=== PATIENT | female | born 1950 | race Caucasian/White ===

== ENCOUNTER 2023-02-14 13:46 | Outpatient (OUT) | payer MEDICARE, SELFPAY ==
[2023-02-14 14:23] LABS: Basophils Percent Auto 0.8 % (0.2-2.0); Eosinophils Absolute Auto 0.1 10^3/uL (0.0-0.7); Eosinophils Percent Auto 1.9 % (0.9-7.0); Hematocrit 39.6 % (36.0-48.0); Hemoglobin 12.8 g/dL (12.0-16.0); Immature Granulocytes Abs Auto 0.01 10^3/uL (0.00-0.03); Immature Granulocytes Pct Auto 0.2 % (0.0-0.5); Lymphocytes Percent Auto 38.4 % (20.5-60.0); Mean Corpuscular HGB Conc 32.3 g/dL (29.9-35.2); Mean Corpuscular Hemoglobin 30.5 pg (26.7-34.0); Mean Corpuscular Volume 94.5 fL (81.0-99.0); Mean Platelet Volume 9.5 fL (9.5-13.5); Monocytes Absolute Auto 0.4 10^3/uL (0.3-0.8); Monocytes Percent Auto 8.4 % (1.7-12.0); Neutrophils Absolute Auto 2.6 10^3/uL (1.4-6.5); Neutrophils Percent Auto 50.3 % (43.0-75.0); Nucleated Red Blood Cells 0; Platelet Count 261 10^3/uL (150-450); Red Blood Count 4.19 10^6/uL (4.20-5.40); Red Cell Distribution Width 13.9 % (11.0-15.0); White Blood Count 5.2 10^3/uL (4.0-11.0)
[2023-02-14 14:45] LABS: Alanine Aminotransferase 33 U/L (14-59); Albumin Globulin Ratio 1.1; Albumin Level 3.8 g/dL (3.4-5.0); Alkaline Phosphatase 83 U/L (46-116); Aspartate Amino Transferase 63 U/L (15-37); BUN Creatinine Ratio 15.7; Calcium 9.6 mg/dL (8.5-10.1); Chloride 105 mmol/L (98-107); Estimated GFR (African America >60 (>=60); Estimated GFR (Non-African Ame >60 (>=60); Globulin 3.6 g/dL; Glucose 91 mg/dL (74-106); Sodium 143 mmol/L (136-145); Thyroid Stimulating Hormone 1.513 uIU/mL (0.358-3.740); Total Protein 7.4 g/dL (6.4-8.2)
== END 2023-02-14 13:47 ==
LOC: LAB 13:51
PROVIDERS: PCP Internal Medicine; Visit Provider Internal Medicine
DX: R53.83 Other fatigue (principal); R26.89 Other abnormalities of gait and mobility; I10 Essential (primary) hypertension; F32.9 Major depressive disorder, single episode, unspecified
CPT/HCPCS: 36415; 80053; 82607; 84443; 85025

== ENCOUNTER 2023-06-19 12:37 | Outpatient (RCR) | payer MEDICARE, SELFPAY | END 2023-06-20 16:16 | disposition home or self-care (01) | LOC: PT 12:37 | PROVIDERS: PCP Internal Medicine; Visit Provider Internal Medicine | DX: H81.11 Benign paroxysmal vertigo, right ear (principal); M54.2 Cervicalgia | CPT/HCPCS: 97163 ==

== ENCOUNTER 2023-07-12 18:38 | Emergency (ER) | payer MEDICARE, SELFPAY ==
[2023-07-12 18:44] VITALS: BP 160/97; PULSE 82; RESP 20; TEMP 36.4; O2SAT 98; BMI 26.8
--- NOTE | 2023-07-12 18:52 | ED.HEATRA1 ---
Documented by User: LADI Townsend 07/12/23 18:56 HPI - Head Injury General Chief complaint: Head Injury Stated complaint: fell and hit head Time Seen by Provider: 07/12/23 18:40 Source: patient Mode of arrival: walk-in Limitations: no limitations History of Present Illness HPI Narrative: patient is a 73-year-old female who presents to the emergency department for the evaluation of a head injury that occurred prior to arrival. Patient states one hour ago her shoe got caught next to a door and she fell backward hitting her head. She denies loss of consciousness, visual changes, nausea, vomiting. She does not take blood thinners. She arrives to the emergency department with no complaints of neck pain or back pain. She denies any extremity injuries. She placed ice on a hematoma to the top of her head which she states is gone now. She has no other focal medical complaints, she denies dizziness, prolonged immobilization on the floor. She is awake, alert, answering questions and smiling at initial interview. Related Data Home Medications Medication Instructions Recorded Confirmed albuterol sulfate 90 mcg/actuation 2 puff inhalation Q6H PRN 07/12/23 07/12/23 aerosol inhaler shortness of breath or wheezing cyanocobalamin (vitamin B-12) 1,000 mcg PO DAILY 07/12/23 07/12/23 1,000 mcg tablet meclizine 25 mg chewable tablet 25 mg PO TID PRN dizziness 07/12/23 07/12/23 Allergies Allergy/AdvReac Type Severity Reaction Status Date / Time No Known Drug Allergies Allergy Verified 07/12/23 18:52 Review of Systems ROS Constitutional Denies: fever or chills Ears, nose, mouth, and throat Denies: throat pain or neck pain Respiratory Denies: shortness of breath Gastrointestinal Denies: nausea or vomiting Musculoskeletal Denies: back pain or neck pain Integumentary/Breast Denies: rash Neurological Denies: headache Hematologic/Lymphatic Denies: easy bruising Exam Narrative Exam Narrative: Gen.: Awake, alert, in no distress Head: Normocephalic, small hematoma noted to the occiput with no abrasion or laceration Neck: C-spine nontender with a full range of motion ENT: Moist mucous membranes; no dental injury, no hemotympanums Respiratory: No respiratory distress back: No bony tenderness of the T-spine or L-spine Extremities: Moves extremities equally, no injuries noted; ambulatory Psych: Normal mood and affect Neuro: No focal neuro deficit Skin: Warm, dry, intact Constitutional Vital Signs, click to edit/add: Last Vital Signs Temp 97.6 F 07/12/23 18:44 Pulse 82 07/12/23 18:44 Resp 20 07/12/23 18:44 BP 160/97 H 07/12/23 18:44 Pulse Ox 98 07/12/23 18:44 O2 Del Method Room Air 07/12/23 18:44 Course Vital Signs Vital signs: Vital Signs Temperature 97.6 F 07/12/23 18:44 Pulse Rate 82 07/12/23 18:44 Respiratory Rate 20 07/12/23 18:44 Blood Pressure 160/97 H 07/12/23 18:44 Pulse Oximetry 98 07/12/23 18:44 Oxygen Delivery Method Room Air 07/12/23 18:44 Temperature 97.6 F 07/12/23 18:44 Pulse Rate 82 07/12/23 18:44 Respiratory Rate 20 07/12/23 18:44 Blood Pressure 160/97 H 07/12/23 18:44 Pulse Oximetry 98 07/12/23 18:44 Oxygen Delivery Method Room Air 07/12/23 18:44 MDM - Head Injury MDM Narrative Medical decision making narrative: patient with no significant focal medical complaints in the Emergency Room. She has a benign exam with stable vital signs. She appears well-hydrated and nontoxic with no focal neuro deficits. Discussed CT scanning with the patient and she is in agreement with returning to the emergency department if she develops any worsening symptoms, though there is no indication for an emergent CT at this time. She was encouraged to watch for worsening headache, vomiting, visual changes or paresthesias. Follow-up with PCP, apply ice to the area of hematoma to the back of the skull. Tylenol as needed for pain. Patient is in agreement with treatment plan. Return to the Emergency Room if symptoms change or worsen. Medical Records Attestation: I reviewed the patient's medical records. Discharge Plan Discharge Chief Complaint: Head Injury Clinical Impression: Closed head injury Patient Disposition: Home, Self-Care Time of Disposition Decision: 18:52 Condition: Good Prescriptions / Home Meds: No Action albuterol sulfate 90 mcg/actuation HFA aerosol inhaler 2 puff INHALATION Q6H PRN (Reason: shortness of breath or wheezing) meclizine 25 mg tablet,chewable 25 mg PO TID PRN (Reason: dizziness) cyanocobalamin (vitamin B-12) 1,000 mcg tablet 1,000 mcg PO DAILY Instructions: Head Injury (ED) Stand Alone Forms: Portal Instructions Referrals: Shaikh Fisher MD [Primary Care Provider] - 1 week Discharge Date/Time: 07/12/23 19:04 Documented by User: Eliezer Chung MD 07/15/23 08:17 HPI - Head Injury General Chief complaint: Head Injury Stated complaint: fell and hit head Time Seen by Provider: 07/12/23 18:40 Related Data Home Medications Medication Instructions Recorded Confirmed albuterol sulfate 90 mcg/actuation 2 puff inhalation Q6H PRN 07/12/23 07/12/23 aerosol inhaler shortness of breath or wheezing cyanocobalamin (vitamin B-12) 1,000 mcg PO DAILY 07/12/23 07/12/23 1,000 mcg tablet meclizine 25 mg chewable tablet 25 mg PO TID PRN dizziness 07/12/23 07/12/23 Allergies Allergy/AdvReac Type Severity Reaction Status Date / Time No Known Drug Allergies Allergy Verified 07/12/23 18:52 Exam Constitutional Vital Signs, click to edit/add: Last Vital Signs Temp 97.6 F 07/12/23 18:44 Pulse 82 07/12/23 18:44 Resp 20 07/12/23 18:44 BP 160/97 H 07/12/23 18:44 Pulse Ox 98 07/12/23 18:44 O2 Del Method Room Air 07/12/23 18:44 Course Vital Signs Vital signs: Vital Signs Temperature 97.6 F 07/12/23 18:44 Pulse Rate 82 07/12/23 18:44 Respiratory Rate 20 07/12/23 18:44 Blood Pressure 160/97 H 07/12/23 18:44 Pulse Oximetry 98 07/12/23 18:44 Oxygen Delivery Method Room Air 07/12/23 18:44 Temperature 97.6 F 07/12/23 18:44 Pulse Rate 82 07/12/23 18:44 Respiratory Rate 20 07/12/23 18:44 Blood Pressure 160/97 H 07/12/23 18:44 Pulse Oximetry 98 07/12/23 18:44 Oxygen Delivery Method Room Air 07/12/23 18:44 MDM - Head Injury MDM Narrative Medical decision making narrative: patient with no significant focal medical complaints in the Emergency Room. She has a benign exam with stable vital signs. She appears well-hydrated and nontoxic with no focal neuro deficits. Discussed CT scanning with the patient and she is in agreement with returning to the emergency department if she develops any worsening symptoms, though there is no indication for an emergent CT at this time. She was encouraged to watch for worsening headache, vomiting, visual changes or paresthesias. Follow-up with PCP, apply ice to the area of hematoma to the back of the skull. Tylenol as needed for pain. Patient is in agreement with treatment plan. Return to the Emergency Room if symptoms change or worsen. I, Dr Chung, have reviewed the above progress note and course of action in the ER; agree with the above. I have personally seen and evaluated this patient, gone over history and physical, and discussed disposition and treatment plan with the patient. Discharge Plan Discharge Chief Complaint: Head Injury Clinical Impression: Closed head injury Patient Disposition: Home, Self-Care Time of Disposition Decision: 18:52 Condition: Good Prescriptions / Home Meds: No Action albuterol sulfate 90 mcg/actuation HFA aerosol inhaler 2 puff INHALATION Q6H PRN (Reason: shortness of breath or wheezing) meclizine 25 mg tablet,chewable 25 mg PO TID PRN (Reason: dizziness) cyanocobalamin (vitamin B-12) 1,000 mcg tablet 1,000 mcg PO DAILY Instructions: Head Injury (ED) Stand Alone Forms: Portal Instructions Referrals: Shaikh Fisher MD [Primary Care Provider] - 1 week Discharge Date/Time: 07/12/23 19:04
== END 2023-07-12 19:04 | disposition home or self-care (01) ==
PROVIDERS: Emergency Provider Emergency Medicine; PCP Internal Medicine
DX: S09.8XXA Other specified injuries of head, initial encounter (principal); W19.XXXA Unspecified fall, initial encounter; Z79.899 Other long term (current) drug therapy
CPT/HCPCS: 99281

== ENCOUNTER 2023-07-21 18:50 | Emergency (ER) | payer MEDICARE, SELFPAY ==
[2023-07-21 18:53] VITALS: BP 135/77; PULSE 80; RESP 16; TEMP 36.8; O2SAT 98; BMI 26.2
--- NOTE | 2023-07-21 19:06 | CT_ITS ---
The [address] [address] Patient Name: KEVON HASKINS MRN: [id number] date: 1950 Sex: F Assigned Patient Location: ER Current Patient Location: Accession/Order Number: [id number] Exam Date: 07/21/2023 19:22 Report Date: 07/21/2023 20:29 At the request of: BREONNA MARY Procedure: CT head/brain wo con NONCONTRAST CT SCAN OF THE HEAD HISTORY: Headache. TECHNIQUE: Multiple axial images are taken from the level the vertex down to the base of the skull without the use of IV contrast. Images were then reconstructed in the sagittal and coronal planes. This exam was performed according to our departmental dose-optimization program which includes use of Automated Exposure Control, adjustment of the mA and/or kV according to patient size and/or use of iterative reconstruction technique. COMPARISON: None. FINDINGS: Brain Parenchyma: There is global, diffuse atrophy with periventricular decreased white matter attenuation. No intracranial mass. No intracranial hemorrhage. Posterior fossa: Normal. Midline shift: None Extra-axial fluid collection: None Ventricles: Normal. Mastoid air cells: Normal. Sinuses: Normal. Cranium: No depressed skull fracture. Soft tissues: Normal. Orbits: Orbits demonstrate postoperative changes from prior cataract resection with prosthetic lens implant. CT/CT head/brain wo con IMPRESSION: 1. Chronic small vessel ischemic change. 2. Otherwise, no CT evidence for acute pathology. 3. If patient continues to have symptoms or if there remains any further clinical concern, MRI may help better delineate. Electronically authenticated by: SWETHA MCCORMACK Date: 07/21/2023 20:29
--- NOTE | 2023-07-21 19:12 | ED_ITS ---
HPI - General Adult General Chief complaint: Headache Stated complaint: L SIDE HEAD PAIN Time Seen by Provider: 07/21/23 18:57 Source: patient Mode of arrival: walk-in History of Present Illness HPI narrative: patient is a 73-year-old female presents to the Emergency Room with her for evaluation of head injury one week ago and left-sided headache. Patient states this evening she developed some discomfort to the left side of her head demonstrating the parietal region rated five out of ten, aching in quickly relieving. Patient states symptoms may be only lasted a few minutes. She denies any visual disturbance. Patient admits she is concerned as last week she fell backwards on steps striking the back of her head. She did not get evaluated for this. She has a baseline history of some forgetfulness per at bedside and has been evaluated by her family doctor for possible M?ni?re's with constant dizziness and ringing in her ears. Patient has appointment with ENT specialist this week. Patient denies any nausea or vomiting. States she has no headache symptooms at this time. She denies any dental pain or ear pain. Location: Reports head; Denies face Radiation: Reports non-radiation Treatments prior to arrival: Reports none Related Data Home Medications Medication Instructions Recorded Confirmed albuterol sulfate 90 mcg/actuation 2 puff inhalation Q6H PRN 07/12/23 07/12/23 aerosol inhaler shortness of breath or wheezing cyanocobalamin (vitamin B-12) 1,000 mcg PO DAILY 07/12/23 07/12/23 1,000 mcg tablet meclizine 25 mg chewable tablet 25 mg PO TID PRN dizziness 07/12/23 07/12/23 Allergies Allergy/AdvReac Type Severity Reaction Status Date / Time No Known Drug Allergies Allergy Verified 07/12/23 18:52 Review of Systems ROS Constitutional Denies: fever or chills Eyes Denies: change in vision or blurry vision Ears, nose, mouth, and throat Reports: tinnitus and vertigo (occasional dizziness per pt. waiting to see ENT for ringing in Ears ); Denies: throat pain, neck pain, dry mouth or nasal congestion Cardiovascular Denies: chest pain Respiratory Denies: shortness of breath or cough Gastrointestinal Denies: abdominal pain, nausea or vomiting Genitourinary Denies: painful urination Musculoskeletal Denies: back pain, neck pain or extremity pain Integumentary/Breast Denies: rash Neurological Reports: headache (lasted minutes, fully resolved.) and dizziness (not present currently, chronic per pt and spouse) Exam Narrative Exam Narrative: Vital signs and nurses notes reviewed. The patient is not hypoxic. General: The patient appears well and in no apparent distress. Patient is resting comfortably on cart. Skin: Warm, dry, no pallor noted. The patient has no evidence of rash, petechiae, or purpura noted. Head: Normocephalic, atraumatic, no temporal arterial tenderness, Neck: Supple, trachea mid-line, no tenderness, no lymphadenopathy. No meningeal signs. No nuchal rigidity. Eye: Pupils are equal, round and reactive to light, EOMI Ears, Nose, Mouth, and Throat: Oral mucosa is moist, TMs are clear bilaterally, no hemotympanum noted.no pain with auricle or tragal palpation. Cardiovascular: Regular Rate and Rhythm Respiratory: Patient is in no distress, no accessory muscle use, lungs are clear to auscultation, no wheezing, rales or rhonchi Back: non-tender, no CVA tenderness Musculoskeletal: normal ROM, no tenderness, no swelling, normal strength 5/5. Normal pulses to radial 2+ bilaterally and 2+ at DP and PT bilaterally and symmetrically. GI: Normal bowel sounds, no tenderness to palpation, no masses appreciated. No rebound, guarding, or rigidity noted. Neurological: A&O x4, normal equal harness and bag inspector strength, normal finger to nose, no pronator drift. The patient is not ataxic. The patient has normal speech. The patient has normal coordination. . Normal motor and sensory observed. Psychiatric: Cooperative Constitutional Vital Signs, click to edit/add: Last Vital Signs Temp 98.2 F 07/21/23 18:53 Pulse 80 07/21/23 18:53 Resp 16 07/21/23 18:53 BP 135/77 07/21/23 18:53 Pulse Ox 98 07/21/23 18:53 O2 Del Method Room Air 07/21/23 18:53 Course Vital Signs Vital signs: Vital Signs Temperature 98.2 F 07/21/23 18:53 Pulse Rate 80 07/21/23 18:53 Respiratory Rate 16 07/21/23 18:53 Blood Pressure 135/77 07/21/23 18:53 Pulse Oximetry 98 07/21/23 18:53 Oxygen Delivery Method Room Air 07/21/23 18:53 Temperature 98.2 F 07/21/23 18:53 Pulse Rate 80 07/21/23 18:53 Respiratory Rate 16 07/21/23 18:53 Blood Pressure 135/77 07/21/23 18:53 Pulse Oximetry 98 07/21/23 18:53 Oxygen Delivery Method Room Air 07/21/23 18:53 Medical Decision Making MDM Narrative Medical decision making narrative: present at bedside, states patient is acting her baseline. . Patient concerned about left-sided headache that was 5/10 brief, denies any additional symptoms. Her vital signs are stable. She has chronic baseline history of tinnitus and intermittent dizziness. Seen ENT this week. Patient admits to a significant head injury one week ago and this has been in the back for mind along with her 's. She has no other focal neurological deficits on exam. A CT of the head will be performed with the risks and benefits discussed, bedside blood glucose reviewed. CT of the head unremarkable, we discussed patient's injury last week, chronic symptoms with forgetfulness, tinnitus and intermittent dizziness. Recommend she continue with outpatient follow-up as discussed. She may return to the Emergency Room if symptoms worsen or new symptoms develop. at bedside also agreeable. Patient has had no headache symptoms during her stay.verbal and written closed head injury instructions discussed The patient is to followup with primary care physician in next 2-3 days or to return to the emergency department should any of the signs or symptoms worsen or new symptoms develop. Patient had questions answered. The patient agrees with the following Diagnosis and Treatment plan and the patient will be discharged home. Lab Data Labs: Lab Results 07/21/23 Range/Units 19:12 POC Glucose 112 H (74-106) mg/dL Imaging Data CT scan - head: Attestation: I have reviewed the pertinent imaging results. Radiologist's impression: Procedure: CT head/brain wo con NONCONTRAST CT SCAN OF THE HEAD HISTORY: Headache. TECHNIQUE: Multiple axial images are taken from the level the vertex down to the base of the skull without the use of IV contrast. Images were then reconstructed in the sagittal and coronal planes. This exam was performed according to our departmental dose-optimization program which includes use of Automated Exposure Control, adjustment of the mA and/or kV according to patient size and/or use of iterative reconstruction technique. COMPARISON: None. FINDINGS: Brain Parenchyma: There is global, diffuse atrophy with periventricular decreased white matter attenuation. No intracranial mass. No intracranial hemorrhage. Posterior fossa: Normal. Midline shift: None Extra-axial fluid collection: None Ventricles: Normal. Mastoid air cells: Normal. Sinuses: Normal. Cranium: No depressed skull fracture. Soft tissues: Normal. Orbits: Orbits demonstrate postoperative changes from prior cataract resection with prosthetic lens implant. IMPRESSION: 1. Chronic small vessel ischemic change. 2. Otherwise, no CT evidence for acute pathology. 3. If patient continues to have symptoms or if there remains any further clinical concern, MRI may help better delineate. Electronically authenticated by: SWETHA KSENIA Date: 07/21/2023 20:29 Discharge Plan Discharge Chief Complaint: Headache Clinical Impression: Closed head injury, Headache Patient Disposition: Home, Self-Care Time of Disposition Decision: 20:38 Condition: Good Prescriptions / Home Meds: No Action albuterol sulfate 90 mcg/actuation HFA aerosol inhaler 2 puff INHALATION Q6H PRN (Reason: shortness of breath or wheezing) meclizine 25 mg tablet,chewable 25 mg PO TID PRN (Reason: dizziness) cyanocobalamin (vitamin B-12) 1,000 mcg tablet 1,000 mcg PO DAILY Instructions: Head Injury (ED) Stand Alone Forms: Portal Instructions Referrals: Shaikh Fisher MD [Primary Care Provider] - 1 week
[2023-07-21 19:14] LABS: Glucometer 112 mg/dL (74-106)
--- NOTE | 2023-07-21 19:16 | PC.NURSE ---
Pt presents to ER for left sided head pain Pt states this headache started earlier today and has progressed up the side of her head towards the top Pt states she had a fall several weeks ago where she hit her head but she was seen at that time Pt is a poor historian
== END 2023-07-21 20:43 | disposition home or self-care (01) ==
PROVIDERS: Emergency Provider Emergency Medicine; PCP Internal Medicine
DX: R51.9 Headache, unspecified (principal); S09.8XXA Other specified injuries of head, initial encounter; W10.9XXA Fall (on) (from) unspecified stairs and steps, initial encounter; Z79.899 Other long term (current) drug therapy
CPT/HCPCS: 36415; 36416; 70450; 82948; 99284

== ENCOUNTER 2023-08-09 21:42 | Emergency (ER) | payer MEDICARE, SELFPAY ==
[2023-08-09 21:45] VITALS: BP 150/95; PULSE 84; RESP 22; TEMP 37.1; O2SAT 97; BMI 28.0
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
[2023-08-09 22:12] VITALS: PULSE 72
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
--- NOTE | 2023-08-09 22:16 | ECG_ITS ---
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
[2023-08-09 23:18] VITALS: BP 158/92
[2023-08-09] MEDS: ACETAMINOPHEN 500 MG TABLET 1000 MG PO (23:36)
== END 2023-08-09 23:41 | disposition home or self-care (01) ==
PROVIDERS: Emergency Provider Emergency Medicine; PCP Internal Medicine
DX: R07.89 Other chest pain (principal); M25.561 Pain in right knee; S29.012A Strain of muscle and tendon of back wall of thorax, initial encounter; S39.012A Strain of muscle, fascia and tendon of lower back, initial encounter; V40.6XXA Car passenger injured in collision with pedestrian or animal in traffic accident, initial encounter
CPT/HCPCS: 71260; 72128; 72131; 73564; 93005; 99285

== ENCOUNTER 2023-08-27 08:51 | Outpatient (OUT) | payer MEDICARE, SELFPAY ==
--- NOTE | 2023-08-27 08:54 | MM_ITS ---
Patient Name: KEVON HASKINS MR#: [id number] : 1950 Exam Date: 08/27/2023 Ordering Doctor: Shaikh Adela Fisher . RADIOLOGY REPORT PROCEDURE: MM TOMOSYNTHESIS SCREENING BI COMPARISON: MG MAMM SCREEN 3D JASON CAD, 11/21/2021. MG MAMM LT DIAG FU, 06/28/2017. INDICATIONS: Screening Calculator Name NCI Breast Cancer Risk Assessment Tool 5 Year Breast Cancer Risk 1.40% Lifetime Breast Cancer Risk 3.90% Personal Breast Cancer No Personal Ovarian Cancer No Treatments None Family Cancers None LOCATION: [facility] BREAST COMPOSITION: Heterogeneously dense,which may obscure small masses. FINDINGS: DIAGNOSTIC CATEGORY 2--BENIGN FINDING. NO CHANGE FROM COMPARISON. Stable bilateral nodular parenchymal pattern most significant in right breast. Scattered benign-appearing calcifications are present. Scattered benign-appearing lymph nodes are present. RIGHT BREAST: No significant suspicious finding. LEFT BREAST: No significant suspicious finding. Geographically distributed calcifications in the upper half breast, grossly stable but limiting diagnostic sensitivity RECOMMENDATIONS: ROUTINE MAMMOGRAM AND CLINICAL EVALUATION IN 12 MONTHS. PLEASE NOTE: A NORMAL MAMMOGRAM DOES NOT EXCLUDE THE POSSIBILITY OF BREAST CANCER. A CLINICALLY SUSPICIOUS PALPABLE LUMP SHOULD BE BIOPSIED. Dictated by: Aleksandr Chavira MD on 08/27/2023 at 10:10 Approved by: Aleksandr Chavira MD on 08/27/2023 at 10:11
== END 2023-08-27 08:52 | disposition home or self-care (01) ==
LOC: MAMMO 08:52
PROVIDERS: PCP Internal Medicine; Visit Provider Internal Medicine
DX: Z12.31 Encounter for screening mammogram for malignant neoplasm of breast (principal)
CPT/HCPCS: 77063; 77067

== ENCOUNTER 2023-09-26 12:18 | Outpatient (OUT) | payer OTHER, SELFPAY ==
--- OUTSIDE RECORDS SUMMARY | 2023-09-26 12:21 | XMS_ITS | CCD ---
Author Name Unknown Address [address] [place] [address] Organization [facility] Care Team Providers Care Dictaphone Transcriber Name Role Phone DR ONUR SOLANO Consulting Unavailable FAWWAD, SANDERS H Attending Unavailable FAWWAD, SANDERS H Primary Care Unavailable FAWWAD, SANDERS H Admitting Unavailable FAWWAD, SANDERS H Consulting Unavailable FAWWAD, SANDERS H Attending Unavailable BOURNEVILLEDR CARLOS V Consulting Unavailable FAWWAD, SANDERS H Primary Care Unavailable FAWWAD, SANDERS H Admitting Unavailable FAWWAD, SANDERS H Consulting Unavailable AICHHOLZ, EQUIPMENT MAINT TECH FAMILIA Consulting Unavailable AICHHOLZ, EQUIPMENT MAINT TECH FAMILIA Admitting Unavailable AICHHOLZ, EQUIPMENT MAINT TECH FAMILIA Attending Unavailable FAWWAD, SANDERS H Primary Care Unavailable RAFFIEBDR ONUR EASON Consulting Unavailable FAWWAD, SANDERS H Attending Unavailable FAWWAD, SANDERS H Primary Care Unavailable FAWWAD, SANDERS H Admitting Unavailable FAWWAD, SANDERS H Attending Unavailable FAWWAD, SANDERS H Primary Care Unavailable FAWWAD, SANDERS H Admitting Unavailable FAWWAD, SANDERS H Attending Unavailable FAWWAD, SANDERS H Primary Care Unavailable FAWWAD, SANDERS H Admitting Unavailable MARKER ., DR HALE Consulting Unavailable MARKER ., DR HALE Admitting Unavailable MARKER ., DR HALE Attending Unavailable FAWWAD, SANDERS H Primary Care Unavailable STEPANIC, DR VU Consulting Unavailable ISMAEL, DR VU Admitting Unavailable STEPANIC, DR VU Attending Unavailable FAWWAD, SANDERS H Primary Care Unavailable DR ONUR SOLANO Consulting Unavailable AICHHOLZ, EQUIPMENT MAINT TECH FAMILIA Consulting Unavailable AICHHOLZ, EQUIPMENT MAINT TECH FAMILIA Admitting Unavailable NEIDA MEREDITH Attending Unavailable SHAIKH Deon FISHER Primary Care Unavailable DR ONUR SOLANO Consulting Unavailable ESME HARLEY Attending Unavailable SHAIKH FISHER Attending Unavailable MD Chad Fisher Primary Care Provider DO Terra Solorzano Attending Provider Shaikh Fisher Primary Care Unavailable Terra Solorzano Attending Unavailable Terra Solorzano Admitting Unavailable Allergies Allergy Classification Reported Allergen(s) Allergy Type Date of Onset Reaction(s) Facility (1 source) Acetaminophen / oxyCODONE Drug Allergy 02-07-[address] [facility] Repository (1 source) Morphine Drug Allergy 02-07-[address] [facility] Repository Problems Active Problems Problem Classification Problem Date Documented Da te Episodic/Chronic Conditions associated with dizziness or vertigo (5 sources) Meniere's disease, left ear; Translations: [MENIERES DISEASE LEFT EAR] Onset: 09-12-2022 Chronic Disorders of lipid metabolism (1 source) Hyperlipidemia, unspecified; Translations: [HYPERLIPIDEMIA UNSPECIFIED] Onset: 09-02-2022 Chronic Essential hypertension (1 source) Essential (primary) hypertension; Translations: [ESSENTIAL PRIMARY HYPERTENSION] Onset: 09-02-2022 Chronic Fever of unknown origin (1 source) Fever, unspecified; Translations: [FEVER UNSPECIFIED] Onset: 12-21-2022 Episodic Nausea and vomiting (4 sources) Nausea with vomiting, unspecified; Translations: [NAUSEA WITH VOMITING UNSPECIFIED] Onset: 12-20-2022 Episodic Osteoarthritis (4 sources) Unilateral primary osteoarthritis, right hip; Translations: [UNI PRIM OSTEOARTHRITIS RT HIP] Onset: 04-03-2022 Chronic Other aftercare (1 source) 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; Translations: [FDC CURRENT USE OF ASPIRIN] Onset: 12-21-2022 Episodic Other gastrointestinal disorders (1 source) Diarrhea, unspecified; Translations: [DIARRHEA UNSPECIFIED] Onset: 12-21-2022 Episodic Spondylosis; intervertebral disc disorders; other back problems (2 sources) Other cervical disc degeneration, high cervical region; Translations: [Other intervertebral disc degeneration, lumbar region] Onset: 07-15-2022 Chronic Unclassified (1 source) CONTACT W/AND (SUSP) EXPOS COVID-19; Translations: [CONTACT W/AND (SUSP) EXPOS COVID-19] Onset: 12-21-2022 Unclassified (1 source) Mild cognitive impairment of uncertain or unknown etiology; Translations: [Mild cognitive impairment of uncertain or unknown etiology] Onset: 09-03-2023 Past or Other Problems Problem Classification Problem Date Documented Da te Episodic/Chronic Heart valve disorders (1 source) Cardiac murmur, unspecified; Translations: [CARDIAC MURMUR UNSPECIFIED] Onset: 09-02-2022 Episodic Nonspecific chest pain (4 sources) Chest pain, unspecified; Translations: [CHEST PAIN UNSPECIFIED] Onset: 08-29-2022 Episodic Other injuries and conditions due to external causes (4 sources) History of falling; Translations: [HISTORY OF FALLING] Onset: 07-12-2022 Episodic Other lower respiratory disease (1 source) Shortness of breath; Translations: [SHORTNESS OF BREATH] Onset: 09-02-2022 Episodic Other nutritional; endocrine; and metabolic disorders (4 sources) Overweight; Translations: [OVERWEIGHT] Onset: 09-04-2022 Episodic Residual codes; unclassified (1 source) Family history of ischemic heart disease and other diseases of the circulatory system; Translations: [FAM HX ISCHEMIC HRT DZ OTH DZ CIRC] Onset: 09-02-2022 Episodic Spondylosis; intervertebral disc disorders; other back problems (1 source) Cervicalgia; Translations: [CERVICALGIA] Onset: 09-12-2022 Episodic Results Test Name Value Interpretation Reference Range Facility Folate [Mass/volume] in Seru m or PlasmaOrdered By: Terra Solorzano on 09-03-2023 Folate [Mass/Vol] 15.2 ng/mL >5.9 [facility] Comment on above: Folate reference ran ge: >5.9 ng/mlThe WHO technical consultation on folate and vitamin [id number] has determined that folate concentrations lessthan 4 ng/ml are considered deficient. Thyrotropin [Units/volume] i n Serum or PlasmaOrdered By: Terra Solorzano on 09-03-2023 TSH Qn 1.89 m[IU]/L Normal 0.45-5.33 [facility] Comment on above: Result Comment: PERF ORMED BY: [place] [address] PATHOLOGIST SCROLL MACHINE OPERATOR LISSA SORIANO M.D. Performed By: #### T SH3, [id number] #### [address] Vit. B12/Folate Profileon Folate 15.2 ng/mL Normal >5.9 [facility] Comment on above: Result Comment: Mel te reference range: >5.9 ng/ml The WHO technical consultation on folate and vitamin b12 deficiencies has determined that folate concentrations less than 4 ng/ml are considered deficient. Performed By: #### T SH3, [id number] #### [address] Vitamin B12 ser/plasOrdered By: Terra Solorzano on 09-03-2023 Cobalamin (Vitamin B12) [Mass/Vol] 711 pg/mL Normal 180-914 [facility] Comment on above: Performed By: #### T SH3, [id number] #### [address] CBC AUTO DIFFon 12-20-2022 BASO # 0.0 103/ul Normal 0.0-0.[address] [facility] Comment on above: Performed By: #### C BC ####[facility] [address] [place] [address]Dr. Yilan Hernández Basophils/100 WBC (Bld) 0.1 % Critically low 0.2-2.[address] [facility] Comment on above: Performed By: #### C BC ####[facility] [address] [place] [address]Dr. Yilan Hernández EO # 0.1 103/ul Normal 0.0-0.[address] [facility] Comment on above: Performed By: #### C BC ####[facility] [address] [place] [address]Dr. Yilan Hernández Eosinophils/100 WBC (Bld) 1.2 % Normal 0.9-7.[address] [facility] Comment on above: Performed By: #### C BC ####[facility] [address] [place] [address]Dr. Veena Hernández Erythrocyte distribution width (RBC) [Ratio] 13.2 % Normal 11.0-15.[address] [facility] Comment on above: Performed By: #### C BC ####[facility] [address] [place], [place] [address]Dr. Veena Hernández Hematocrit (Bld) [Volume fraction] 38.4 % Normal 36.0-48.[address] [facility] Comment on above: Performed By: #### C BC ####[facility] [address] [place], [place] [address]Dr. Veena Hernández Hemoglobin (Bld) [Mass/Vol] 12.6 g/dL Normal 12.0-16.0 [facility] Comment on above: Performed By: #### C BC ####[facility] F[address] [place], [place] [address]Dr. Veena Hernández IG # 0.02 10e3/ul Normal 0.00-0.03 [facility] Comment on above: Performed By: #### C BC ####[facility] [address] [place], [place] [address]Dr. Veena Hernández IG % 0.3 % Normal 0.0-0.5 [facility] Comment on above: Performed By: #### C BC ####[facility] [address] [place], [place] [address]Dr. Veena Hernández LYMPH # 0.3 103/ul Critically low 1.2-3.[address] [facility] Comment on above: Performed By: #### C BC ####[facility] [address] [place], [place] [address]Dr. Veena Hernández Lymphocytes/100 WBC (Bld) 4.1 % Critically low 20.5-60.[address] [facility] Comment on above: Performed By: #### C BC ####[facility] [address] [place], [place] [address]Dr. Veena Hernández MANUAL DIFF REQ NO Normal [facility] Comment on above: Performed By: #### C BC ####[facility] [address] [place] [id number]. Veena Hernández MCH (RBC) [Entitic mass] 31.4 pg Normal 26.7-34.[address] [facility] Comment on above: Performed By: #### C BC ####[facility] [address] [place] [id number]. Veena Hernández MCHC (RBC) [Mass/Vol] 32.8 g/dL Normal 29.9-35.[address] [facility] Comment on above: Performed By: #### C BC ####[facility] [address] [place], [place] [address]Dr. Veena Hernández MCV (RBC) [Entitic vol] 95.8 fL Normal 81.0-99.[address] [facility] Comment on above: Performed By: #### C BC ####[facility] [address] [place], [place] [address]Dr. Veena Edgar MONO # 0.3 103/ul Normal 0.3-0.[address] [facility] Comment on above: Performed By: #### C BC ####[facility] J[address] [place], [place] [address]Dr. Veena Edgar Monocytes/100 WBC (Bld) 3.8 % Normal 1.7-12.[address] [facility] Comment on above: Performed By: #### C BC ####[facility] V[address] [place], [place] [address]Dr. Veena Hernández NEUT # 7.1 103/ul Critically high 1.4-6.5 [facility] Comment on above: Performed By: #### C BC ####[facility] [address] [place], [place] [address]Dr. Valeha Hernández Neutrophils/100 WBC (Bld) 90.5 % Critically high 43.0-75.[address] [facility] Comment on above: Performed By: #### C BC ####[facility] [address] [place], [place] [address]Dr. Veena Hernández Platelet mean volume (Bld) [Entitic vol] 9.8 fL Normal 9.5-13.[address] [facility] Comment on above: Performed By: #### C BC ####[facility] [address] [place], [place] [address]Zo. Veena Hernández PLT 231 103/ul Normal 150-[address] [facility] Comment on above: Performed By: #### C BC ####[facility] [address] [place], [place] [address]Ja. Veena Hernández RBC 4.01 106/ul Critically low 4.20-5.40 [facility] Comment on above: Performed By: #### C BC ####[facility] [address] [place], [place] [address]Yn. Veena Hernández WBC 7.8 103/ul Normal 4.0-11.[address] [facility] Comment on above: Performed By: #### C BC ####[facility] [address] [place], [place] [address]Mi. Veena Hernández Covid-19 PCR (CVDTBH)on SARS-CoV-2 (COVID-19) RNA ROGER+probe Ql (Unsp spec) Not detected Normal NOT DETECTED [facility] Comment on above: Result Comment: This test is not yet approved or cleared by the [place] FDA. When there are no FDA-approved or cleared tests available, and other criteria are met, FDA can make tests available under an emergency access mechanism called an Emergency Use Authorization (EUA). The EUA for this test is supported by the [place] of Health and Human Service's (HHS's) declaration that circumstances exist to justify the emergency use of in vitro diagnostics for the detection and/or diagnosis of the virus that causes COVID-19. This EUA will remain in effect (meaning this test can be used) for the duration of the COVID-19 declaration justifying emergency of IVDs, unless it is terminated or revoked by FDA (after which the test may no longer be used). When diagnostic testing is negative, the possibility of a false negative should be considered in the context of a patient's recent exposures and the presence of clinical signs and symptoms consistent with SARS-CoV-2. Performed By: #### C VDTBH ####[facility] [address] [place], [place] [address]Fr. Veena Hernández INFLUENZA A AND B AGon 12-20 INFLUANEGH SEE BELOW Normal [facility] Comment on above: Result Comment: Nega tive for Flu A protein angiten. Infection due to Flu A cannot be ruled out. Flu A angiten in the sample may be below the detection limit of the test. Performed By: #### I NFLUAB ####[facility] [address] [place], [place] [address]Dr. Veena Hernández INFLUBNEGH SEE BELOW Normal [facility] Comment on above: Result Comment: Nega tive for Flu B protein antigen. Infection due to Flu B cannot be ruled out. Flu B antigen in the sample may be below the detection limit of the test. Performed By: #### I NFLUAB ####[facility] [address] [place], [place] [address]Dr. Veena Hernández INFLUENZA A AG Negative Normal NEGATIVE SEE COMMENT [facility] Comment on above: Performed By: #### I NFLUAB ####[facility] [address] [place], [place] [address]Dr. Veena Hernández INFLUENZA B AG Negative Normal NEGATIVE SEE COMMENT [facility] Comment on above: Performed By: #### I NFLUAB ####[facility] [address] [place] [address]. Veena Hernández LACTATE/LACTIC ACIDon 2022 Lactate [Moles/Vol] 0.7 mmol/L Normal 0.4-2.[address] [facility] Comment on above: Performed By: #### L ACT ####[facility] [address] [place] [address]. Veena Hernández LIPASEon 12-20-2022 Lipase [Catalytic activity/Vol] 309.0 U/L Normal 73.0-393.0 [facility] Comment on above: Performed By: #### L IPA, HSTROPN, CMP ####[facility] H[address] [place], [place] [address]Dr. Veena Edgar PROF 14(COMP METB)on 023 Albumin [Mass/Vol] 3.7 g/dL Normal 3.4-5.0 [facility] Comment on above: Performed By: #### L IPA, HSTROPN, CMP ####[facility] [address] [place] [address]Dr. Valeha Hernández Albumin/Globulin [Mass ratio] 1.2 {ratio} Normal [facility] Comment on above: Performed By: #### L IPA, HSTROPN, CMP ####[facility] [address] [place] [address]Dr. Valeha Hernández ALP [Catalytic activity/Vol] 85 U/L Normal 46-[address] [facility] Comment on above: Performed By: #### L IPA, HSTROPN, CMP ####[facility] [address] [place], [place] [address]Dr. Veena Hernández ALT [Catalytic activity/Vol] 15 U/L Normal 14-59 [facility] Comment on above: Performed By: #### L IPA, HSTROPN, CMP ####[facility] [address] [place], [place] [address]Dr. Veena Hernández Anion gap [Moles/Vol] 11.2 mmol/L Normal [facility] Comment on above: Performed By: #### L IPA, HSTROPN, CMP ####[facility] [address]qi[address] [place], [place] [address]Dr. Veena Hernández AST [Catalytic activity/Vol] 15 U/L Normal 15-37 [facility] Comment on above: Performed By: #### L IPA, HSTROPN, CMP ####[facility] I[address]xr[address] [place], [place] [address]Dr. Veena Hernández Bilirubin [Mass/Vol] 0.9 mg/dL Normal 0.2-1.[address] [facility] Comment on above: Performed By: #### L IPA, HSTROPN, CMP ####[facility] [address] [place], [place] [address]Dr. Veena Hernández Calcium [Mass/Vol] 8.7 mg/dL Normal 8.5-10.1 [facility] Comment on above: Performed By: #### L IPA, HSTROPN, CMP ####[facility] [address] [place] [id number]. Veena Edgar Chloride [Moles/Vol] 104 mmol/L Normal 98-[address] [facility] Comment on above: Performed By: #### L IPA, HSTROPN, CMP ####[facility] [address] [place] [address]Dr. Veena Hernández CO2 [Moles/Vol] 27.8 mmol/L Normal 21.0-32.0 [facility] Comment on above: Performed By: #### L IPA, HSTROPN, CMP ####[facility] [address] [place] [address]Dr. Valeha Edgar Creatinine [Mass/Vol] 0.77 mg/dL Normal 0.55-1.02 [facility] Comment on above: Performed By: #### L IPA, HSTROPN, CMP ####[facility] [address] [place], [place] [address]Dr. Veena Hernández EGFR-AF CHADIAN >60 Normal >=60 [facility] Comment on above: Performed By: #### L IPA, HSTROPN, CMP ####[facility] [address] [place] [address]Dr. Valeha Edgar EGFR-NON AF CHADIAN >60 Normal >=60 [facility] Comment on above: Performed By: #### L IPA, HSTROPN, CMP ####[facility] [address] [place] [address]Dr. Veena Hernández Globulin (S) [Mass/Vol] 3.2 g/dL Normal [facility] Comment on above: Performed By: #### L IPA, HSTROPN, CMP ####[facility] [address] [place] [address]Dr. Veena Hernández Glucose [Mass/Vol] 121 mg/dL Critically high 74-106 [facility] Comment on above: Performed By: #### L IPA, HSTROPN, CMP ####[facility] [address] [place] [address]Dr. Veena Hernández Potassium [Moles/Vol] 4.0 mmol/L Normal 3.5-5.[address] [facility] Comment on above: Performed By: #### L IPA HSTROPN, CMP ####[facility] [address]bk[address] [place] [address]Dr. Veena Hernández Protein [Mass/Vol] 6.9 g/dL Normal 6.4-8.2 [facility] Comment on above: Performed By: #### L IPA HSTROPN, CMP ####[facility] [address] [place] [address]Dr. Veena Hernández Sodium [Moles/Vol] 139 mmol/L Normal 136-145 [facility] Comment on above: Performed By: #### L IPA HSTROPN, CMP ####[facility] [address] [place] [address]Dr. Veena Hernández Urea nitrogen [Mass/Vol] 19.0 mg/dL Critically high 7.0-18.[address] [facility] Comment on above: Performed By: #### L IPA HSTROPN, CMP ####[facility] [address] [place] [address]Dr. Valeha Hernández Urea nitrogen/Creatinine [Mass ratio] 24.7 mg/mg Normal [facility] Comment on above: Performed By: #### L IPA HSTROPN, CMP ####[facility] [address] [place] [address]Dr. Veena Hernández SYMPTOMATIC COVID-19 ANTIGEN on 12-20-2022 EUA Statement SEE BELOW Normal [facility] Comment on above: Result Comment: This test has not been FDA cleared or approved, but has been authorized by the FDA under an Emergency Use Authorization (EUA) for use by authorized laboratories certified under CLIA that meet the requirements to perform moderate or high complexity testing. This test has been authorized only for the detection of proteins from SARS-CoV-2, not for any other viruses or pathogens. The emergency use of this test is authorized for the duration of the declaration that circumstances exist justifying the authorization of emergency use of in vitro diagnostic tests for detection and/or diagnosis of Covid-19 under section 564(b)(1) of the Act, 21 U.S.C. 360bbb-3(b)(1), unless the declaration is terminated or authorization is revoked sooner. Performed By: #### C VDAGS ####[facility] [address] [place], [place] [address]Mh. Veena Hernández SARS-CoV-2 (COVID-19) RNA ROGER+probe Ql (Unsp spec) Negative Normal NEGATIVE [facility] Comment on above: Performed By: #### C VDAGS ####[facility] [address] [place], [place] [address]Th. Veena Hernández TROPONIN, HIGH SENSITIVITYon 12-20-2022 HSTROP <4.0 Normal 4.0-51.[address] [facility] Comment on above: Result Comment: CUT- OFF POINTS HAVE BEEN ESTABLISHED BASED ON THE FOURTH UNIVERSAL DEFINITIONS OF MYOCARDIAL INFARCTION. THE UPPER REFERENCE LIMIT (URL) OF TROPONIN, DEFINED THE 99TH PERCENTILE OF cTnI DISTRIBUTION IN A REFERENCE POPULATION, HAS BEEN CONFIRMED THE DECISION THRESHOLD FOR [place] DIAGNOSIS. Performed By: #### L IPA, HSTROPN, CMP ####[facility] [address] [place], [place] [address]Xs. Veena Hernández XR CSPINE 2_3 VIEWSon 2021 XR CSPINE 2_3 VIEWS EXAMINATION: XR CSPI NE 2_3 VIEWS HISTORY: Neck pain ; chronic posterior cervical spine pain COMPARISON: XR C-spine 03/20/2021 FINDINGS: BONES: Mechanical fusion C4-C7 the anterior plate and screws; no hardware fracture or loosening. No appreciable compression fracture. Moderate degenerative facet arthropathy of the facet joints at most cervical levels. DISC SPACES: Moderate narrowing L3-L4. Suspect osseous fusion C4-C7. PARASPINOUS: Negative. No paraspinous abnormality is seen. OTHER: Negative. IMPRESSION: 1. No appreciable acute abnormality. 2. C3-C4 moderate degenerative disc disease and multilevel degenerative facet arthropathy; grossly stable. 3. Stable surgical changes. Electronically authenticated by: ONUR SOLANO Date: 2022-09-05 17:06 Normal [facility] ECHOCARDIO M/2D COMPLETEon 1 10-30-2021 ECHOCARDIO M/2D COMPLETE Patient: JOZEF KEVON CartagenaLindsey Exam Date: 08/29/2022 : 1950 Gender:F Ordering : NEIDA MEREDITH [facility] Admission #: [id number] Family : Order #: [id number] CLICK HERE TO VIEW EXAM ECHOCARDIOGRAM REPORT PROCEDURE: CARDIO PULMONARY ECHOCARDIO M/2D COMP INDICATIONS: Chest pain COMPARISON: None. DESCRIPTION: COMPLETE ECHOCARDIOGRAM Real-time transthoracic echocardiography with 2D, M-mode, spectral and color flow Doppler performed. QUALITY: Technical quality was good. LEFT VENTRICLE: Normal chamber size. Normal left ventricular wall thickness. LV EF: Global left ventricular systolic function is normal. Calculated left ventricular ejection fraction is 61% DIASTOLIC: Normal diastolic function. ATRIAL SEPTUM: Inadequately seen. LEFT ATRIUM: Normal chamber size. RIGHT ATRIUM: Normal chamber size. RIGHT VENTRICLE: Normal chamber size. Normal right ventricular systolic function. TRICUSPID VALVE: Normal mobility and thickness. No stenosis with trivial regurgitation. No evidence of pulmonary hypertension. RVSP 25mmHg MITRAL VALVE: Normal mobility and thickness. No mitral valve prolapse. No evidence of mitral valve stenosis. There is no mitral annular calcification. Trivial mitral regurgitation. AORTIC VALVE: Normal trileaflet appearance. No visible sclerosis. Normal leaflet mobility. No evidence of aortic valve stenosis. No aortic regurgitation. AORTIC ROOT: Normal diameter and appearance. PULMONIC VALVE: Normal thickness and mobility. No stenosis. No regurgitation. PERICARDIUM: Anterior free space; trivial effusion versus fat pad. IVC: Collapses with inspirations. Normal size. CONCLUSION: Global left ventricular systolic function is normal; visually estimated ejection fraction 55 to 60%. No wall motion abnormalities. Normal diastolic function. Normal right ventricular chamber size and systolic function. No significant valvular abnormalities. Anterior free space; trivial effusion versus fat pad. Adult Echocardiography Procedure Report Left Ventricle LVEDD (3.7 - 5.6 cm): 4.27 cm LVESD (2.2 - 4.0 cm): 2.99 cm LVIVS thickness (0.6 - 1.2 cm): 1.01 cm LVPW thickness (0.5 - 1.0 cm): 0.76 cm e': 0.10 m/s E - e': 9.54 LVOT Max Gradient: 4.79 mm[Hg] Peak Velocity (LVOT): 1.09 m/s Mean Velocity (LVOT): 0.74 m/s LVOT Diameter 1.97 cm Left Ventricular Ejection Fraction: 57.39 %, 57.39 % Left Atrium LA Volume Index (2D A2C): 53.69 ml, 53.69 ml Left Atrium Systolic Dimension: 2.66 cm Mitral Valve MV E to A Ratio: 1.05 Mitral Valve A-Wave Peak Velocity: 0.89 m/s Mitral Valve E-Wave Peak Velocity: 0.93 m/s Right Ventricle RV Internal Diastolic Dimension: 3.05 cm Aorta AO Root Diam: 2.79 cm Ascending Ao Diam: 2.68 cm Aortic Valve AoV Area (Peak Claudio): 2.19 cm2, 2.19 cm2 AoV Area (VTI): 2.05 cm2, 2.05 cm2 Peak Velocity(Antegrade Flow): 1.52 m/s Peak Gradient(Antegrade Flow): 9.27 mm[Hg] Mean Velocity(Antegrade Flow): 1.02 m/s Mean Gradient(Antegrade Flow): 4.76 mm[Hg] Velocity Time Integral: 37.33 cm Tricuspid Valve Peak Velocity (Regurgitant Flow): 2.35 m/s, 1.99 m/s, 2.29 m/s Peak Velocity: 0.56 m/s Pulmonic Valve Peak Velocity: 1.10 m/s, 1.02 m/s Peak Gradient: 4.88 mm[Hg], 4.13 mm[Hg] Right Atrium Right Atrium Systolic Pressure: 43.40 ml, 43.40 ml Dictated by: Myles Haney M.D. on 08/30/2022 at 12:53 Approved by: Myles Haney M.D. on 08/30/2022 at 12:57 Normal [facility] STRESS/REST MULTIon 08-29 AL STRESS/REST MULTI Patient: KEVON HASKINS Exam Date: 08/29/2022 : 1950 Gender:F Ordering : [facility] Admission #: [id number] Family : Order #: [id number] CLICK HERE TO VIEW EXAM RADIOLOGY REPORT PROCEDURE: RADIONUCLIDE IMAGING STRESS/REST MULTI COMPARISON: None. INDICATIONS: Chest pain TECHNIQUE: Exam Description: Stress/Rest one day protocol gated SPECT Rest Imagin.6 mCi Tc-99m Cardiolite IV on 08/29/2022 Stress Imaging 30.6 mCi Tc-99m Cardiolite IV on 08/29/2022 Exercise Protocol: David Heart Rate (bpm): Rest: 78 Max: 144 PMHR: 96 Blood Pressure: Rest: 174/104 Max: 206/116 Symptoms: Rest and peak stress ECG findings were normal and the exercise portion of the study was normal per attending physician Dr. Delong . For more details please see separate cardiac stress test report. FINDINGS: QUALITY OF STUDY: Excellent. PERFUSION DEFECT: None. LOCATION: N/A SIZE: N/A. SEVERITY: N/A. TYPE: N/A. WALL MOTION: Normal. LV SIZE: Normal. 60 mL. TID / TCD: None; 0.9 LVEF: Normal. Calculated EF 76%. SUMMARY: Myocardial perfusion imaging study is NORMAL. CONCLUSION: 1. Normal nuclear medicine myocardial perfusion scan. Dictated by: Onur Solano M.D. on 08/29/2022 at 15:43 Approved by: Onur Solano M.D. on 08/29/2022 at 15:58 Normal [facility] BNPon 08-01-2022 Natriuretic peptide B (Bld) [Mass/Vol] 41.0 pg/mL Normal <=900.[address] [facility] Comment on above: Performed By: #### C K, CKMB, REINALDO, CMP, BNP, HSTROPN #### [facility] [address] [address] [address] Veena Hernández CBC AUTO DIFFon 08-01-2022 BASO # 0.0 103/ul Normal 0.0-0.[address] [facility] Comment on above: Performed By: #### C BC ####[facility] [address] [address]Dr. Veena Hernández Basophils/100 WBC (Bld) 0.8 % Normal 0.2-2.[address] [facility] Comment on above: Performed By: #### C BC ####[facility] [address] [address]DrLindsey Hernández EO # 0.1 103/ul Normal 0.0-0.[address] [facility] Comment on above: Performed By: #### C BC ####[facility] [address] [address]Dr. Veena Hernández Eosinophils/100 WBC (Bld) 1.3 % Normal 0.9-7.[address] [facility] Comment on above: Performed By: #### C BC ####[facility] [address] [address]Dr. Veena Hernández Erythrocyte distribution width (RBC) [Ratio] 13.3 % Normal 11.0-15.[address] [facility] Comment on above: Performed By: #### C BC ####[facility] [address] [address]Dr. Veena Hernández Hematocrit (Bld) [Volume fraction] 39.3 % Normal 36.0-48.[address] [facility] Comment on above: Performed By: #### C BC ####[facility] [address] [address]Dr. Veena Hernández Hemoglobin (Bld) [Mass/Vol] 12.9 g/dL Normal 12.0-16.[address] [facility] Comment on above: Performed By: #### C BC ####[facility] [address] [address]Dr. Veena Hernández IG # 0.00 10e3/ul Normal 0.00-0.[address] [facility] Comment on above: Performed By: #### C BC ####[facility] [address] [address]Dr. Veena Hernández IG % 0.0 % Normal 0.0-0.[address] [facility] Comment on above: Performed By: #### C BC ####[facility] [address] [address]Dr. Veena Hernández LYMPH # 1.8 103/ul Normal 1.2-3.[address] [facility] Comment on above: Performed By: #### C BC ####[facility] [address] [address]Dr. Veena Hernández Lymphocytes/100 WBC (Bld) 34.3 % Normal 20.5-60.[address] [facility] Comment on above: Performed By: #### C BC ####[facility] [address] [address]Dr. Veena Edgar MANUAL DIFF REQ NO Normal [facility] Comment on above: Performed By: #### C BC ####[facility] [address] [address]Dr. Veena Hernández MCH (RBC) [Entitic mass] 31.1 pg Normal 26.7-34.[address] [facility] Comment on above: Performed By: #### C BC ####[facility] [address] [address]Dr. Veena Edgar MCHC (RBC) [Mass/Vol] 32.8 g/dL Normal 29.9-35.[address] [facility] Comment on above: Performed By: #### C BC ####[facility] [address] [place], [place] [address]Dr. Valeha Hernández MCV (RBC) [Entitic vol] 94.7 fL Normal 81.0-99.[address] [facility] Comment on above: Performed By: #### C BC ####[facility] [address] [place], [place] [address]Dr. Veena Edgar MONO # 0.3 103/ul Normal 0.3-0.[address] [facility] Comment on above: Performed By: #### C BC ####[facility] [address] [place], [place] [address]Dr. Valeha Hernández Monocytes/100 WBC (Bld) 6.1 % Normal 1.7-12.[address] [facility] Comment on above: Performed By: #### C BC ####[facility] [address] [address]Dr. Veena Hernández NEUT # 3.0 103/ul Normal 1.4-6.[address] [facility] Comment on above: Performed By: #### C BC ####[facility] [address] [place], [place] [address]Dr. Veena Hernández Neutrophils/100 WBC (Bld) 57.5 % Normal 43.0-75.[address] [facility] Comment on above: Performed By: #### C BC ####[facility] [address] [address]Dr. Veena Hernández Platelet mean volume (Bld) [Entitic vol] 9.8 fL Normal 9.5-13.[address] [facility] Comment on above: Performed By: #### C BC ####[facility] [address] [address]Dr. Veena Hernández PLT 227 103/ul Normal 150-[address] [facility] Comment on above: Performed By: #### C BC ####[facility] [address] [address]Dr. Veena Hernández RBC 4.15 106/ul Critically low 4.20-5.40 [facility] Comment on above: Performed By: #### C BC ####[facility] [address] [address]Dr. Veena Hernández WBC 5.3 103/ul Normal 4.0-11.[address] [facility] Comment on above: Performed By: #### C BC ####[facility] [address] [address]DrLindsey Hernández CKMBon 08-01-2022 CK.MB [Mass/Vol] 0.90 ng/mL Normal <=3.60 [facility] Comment on above: Performed By: #### C K, CKMB, REINALDO, CMP, BNP, HSTROPN #### [facility] [address] [address] [address] Veena Hernández CPKon 08-01-2022 CK [Catalytic activity/Vol] 66 U/L Normal 26-[address] [facility] Comment on above: Performed By: #### C K, CKMB, REINALDO, CMP, BNP, HSTROPN #### [facility] [address] [address] [address] Veena Hernández MYOGLOBINon 08-01-2022 REINALDO 38 ng/mL Normal 9-[address] [facility] Comment on above: Performed By: #### C K, CKMB, REINALDO, CMP, BNP, HSTROPN ####[facility] [address] [address]Dr. Veean Hernández PROF 14(COMP METB)on 022 Albumin [Mass/Vol] 4.0 g/dL Normal 3.4-5.0 [facility] Comment on above: Performed By: #### C K, CKMB, REINALDO, CMP, BNP, HSTROPN #### [facility] [address] [place] [address] Dr. Veena Hernández Albumin/Globulin [Mass ratio] 1.3 {ratio} Normal [facility] Comment on above: Performed By: #### C K, CKMB, REINALDO, CMP, BNP, HSTROPN #### [facility] [address] [place] [address] Dr. Veena Hernández ALP [Catalytic activity/Vol] 69 U/L Normal 46-116 [facility] Comment on above: Performed By: #### C K, CKMB, REINALDO, CMP, BNP, HSTROPN #### [facility] [address] [place] [address] Dr. Veena Hernández ALT [Catalytic activity/Vol] 15 U/L Normal 14-59 [facility] Comment on above: Performed By: #### C K, CKMB, REINALDO, CMP, BNP, HSTROPN #### [facility] [address] [place] [address] Dr. Veena Hernández Anion gap [Moles/Vol] 7.4 mmol/L Normal [facility] Comment on above: Performed By: #### C K, CKMB, REINALDO, CMP, BNP, HSTROPN #### [facility] [address] [place] [address] Dr. Veena Hernández AST [Catalytic activity/Vol] 14 U/L Critically low 15-37 [facility] Comment on above: Performed By: #### C K, CKMB, REINALDO, CMP, BNP, HSTROPN #### [facility] [address] [place] [address] Dr. Veena Hernández Bilirubin [Mass/Vol] 1.9 mg/dL Critically high 0.2-1.0 [facility] Comment on above: Performed By: #### C K, CKMB, REINALDO, CMP, BNP, HSTROPN #### [facility] [address] [address] [address] Veena Hernández Calcium [Mass/Vol] 9.4 mg/dL Normal 8.5-10.1 [facility] Comment on above: Performed By: #### C K, CKMB, REINALDO, CMP, BNP, HSTROPN #### [facility] [address] [address] [address] Veena Hernández Chloride [Moles/Vol] 106 mmol/L Normal 98-[address] [facility] Comment on above: Performed By: #### C K, CKMB, REINALDO, CMP, BNP, HSTROPN #### [facility] [address] [address] [address] Veena Hernández CO2 [Moles/Vol] 32.3 mmol/L Critically high 21.0-32.0 [facility] Comment on above: Performed By: #### C K, CKMB, REINALDO, CMP, BNP, HSTROPN #### [facility] [address] [place] [address] Dr. Veena Hernández Creatinine [Mass/Vol] 0.80 mg/dL Normal 0.55-1.02 [facility] Comment on above: Performed By: #### C K, CKMB, REINALDO, CMP, BNP, HSTROPN #### [facility] [address] [place] [address] Dr. Veena Hernández EGFR-AF CHADIAN >60 Normal >=60 [facility] Comment on above: Performed By: #### C K, CKMB, REINALDO, CMP, BNP, HSTROPN #### [facility] [address] [place] [address] Dr. Veena Hernández EGFR-NON AF CHADIAN >60 Normal >=60 [facility] Comment on above: Performed By: #### C K, CKMB, REINALDO, CMP, BNP, HSTROPN #### [facility] [address] [place] [address] Dr. eVena Hernández Globulin (S) [Mass/Vol] 3.2 g/dL Normal [facility] Comment on above: Performed By: #### C K, CKMB, REINALDO, CMP, BNP, HSTROPN #### [facility] [address] [address] [address] Veena Hernández Glucose [Mass/Vol] 98 mg/dL Normal 74-106 [facility] Comment on above: Performed By: #### C K, CKMB, REINALDO, CMP, BNP, HSTROPN #### [facility] [address] [address] [address] Veena Hernández Potassium [Moles/Vol] 3.7 mmol/L Normal 3.5-5.1 [facility] Comment on above: Performed By: #### C K, CKMB, REINALDO, CMP, BNP, HSTROPN #### [facility] [address] [place] [address] Dr. Veena Hernández Protein [Mass/Vol] 7.2 g/dL Normal 6.4-8.2 [facility] Comment on above: Performed By: #### C K, CKMB, REINALDO, CMP, BNP, HSTROPN #### [facility] [address] [place] [address] Dr. Veena Hernández Sodium [Moles/Vol] 142 mmol/L Normal 136-145 [facility] Comment on above: Performed By: #### C K, CKMB, REINALDO, CMP, BNP, HSTROPN #### [facility] [address] [place] [address] Dr. Veena Hernández Urea nitrogen [Mass/Vol] 11.0 mg/dL Normal 7.0-18.0 [facility] Comment on above: Performed By: #### C K, CKMB, REINALDO, CMP, BNP, HSTROPN #### [facility] [address] [address] [address] Veena Hernández Urea nitrogen/Creatinine [Mass ratio] 13.8 mg/mg Normal [facility] Comment on above: Performed By: #### C K, CKMB, REINALDO, CMP, BNP, HSTROPN #### [facility] [address] [place] [address] Dr. Veena Hernández TROPONIN, HIGH SENSITIVITYon 08-01-2022 HSTROP 5.0 pg/mL Normal 4.0-51.3 [facility] Comment on above: Result Comment: CUT- OFF POINTS HAVE BEEN ESTABLISHED BASED ON THE FOURTH UNIVERSAL DEFINITIONS OF MYOCARDIAL INFARCTION. THE UPPER REFERENCE LIMIT (URL) OF TROPONIN, DEFINED THE 99TH PERCENTILE OF cTnI DISTRIBUTION IN A REFERENCE POPULATION, HAS BEEN CONFIRMED THE DECISION THRESHOLD FOR OK DIAGNOSIS. Performed By: #### C K, CKMB, REINALDO, CMP, BNP, HSTROPN #### [facility] [address] [address] [address] Veena Hernández XR CHEST 2 Von 08-01-2022 XR CHEST 2 V EXAMINATION: XR CHES T 2 V HISTORY: Chest pain COMPARISON: No relevant comparison available. FINDINGS: LUNGS: Loss of the left lateral and posterior costophrenic angles. Lungs are otherwise well-expanded and clear. VASCULATURE: No increased pulmonary vasculature. PLEURA: No pneumothorax. CARDIAC: No cardiomegaly or cardiac silhouette abnormality. MEDIASTINUM: No visible mass or adenopathy. BONES: Mechanical fusion lower cervical spine. Moderate degenerative changes of the acromioclavicular joints bilaterally. OTHER: Negative. IMPRESSION: 1. Loss of the left lateral and posterior costophrenic angles with bowel seen immediately below diaphragm suggesting this is chronic and possibly related to scarring. Acute infiltrates and pleural effusion are felt less likely. Consider CT chest without contrast for further evaluation if clinically indicated. Electronically authenticated by: ONUR SOLANO Date: 2022-08-01 10:19 Normal [facility] XR LSPINE 2_3 VIEWSon 2021 XR LSPINE 2_3 VIEWS EXAMINATION: XR LSPI NE 2_3 VIEWS HISTORY: Unspecified fall COMPARISON: No relevant comparison available. FINDINGS: BONES: No acute fracture or spondylolisthesis. Mild spondylosis. Moderate to severe facet osteoarthropathy DISC SPACES: Moderate to severe multilevel disc space narrowing. Interbody spacers L3-4 and L4-L5 PARASPINOUS: Negative. No paraspinous abnormality is seen. OTHER: Negative. IMPRESSION: Degenerative changes Electronically authenticated by: CARLOS KEMP Date: 2022-07-12 19:26 Normal [facility] XR HIP RT INJon 04-03-2022 XR HIP RT INJ EXAMINATION: XR HIP RT INJ HISTORY: Arthritis of right hip ; chronic right hip pain COMPARISON: No relevant comparison available. FLUOROSCOPY TIME: Fluoro time measures 25 seconds and 2 images were obtained. TECHNIQUE: A joint injection was performed in the usual sterile manner after obtaining informed consent. Standard level fluoroscopic mode of operation utilized. FINDINGS: JOINT: Right hip. NEEDLE: 22 gauge, 3.5 spinal needle. MEDICATION: 2cc buffered 1% lidocaine for subcutaneous anesthesia 1 cc Omnipaque-240 iodinated contrast to visualize the joint space Mixture of Kenalog 40 mg, 0.5% Bupivacaine 2 mL and Omnipaque 240 10mL was injected into the joint space. TECHNIQUE: Anterior approach with prior localization of the femoral artery. A single stick was successful in gaining access to the joint space. CLINICAL: Near complete resolution of hip pain following the injection (4/10 preinjection; 0/10 post injection). COMPLICATIONS: None. OTHER: Negative. IMPRESSION: 1. Successful right hip injection with resolution of patient's pain. Electronically authenticated by: ONUR SOLANO Date: 2022-04-03 09:18 Normal [facility] Encounters Encounter Date Encounter Type Care Provider Facility Start: 09-03-2023 End: 09-03-2023 ambulatory Shaikh Natalia Facility:[facility] Start: 09-03-2023 End: 09-03-2023 ambulatory MD Shaikh Fisher Work Phone: [facility] Work Phone: Start: 09-03-2023 End: 09-03-2023 Patient encounter procedure MD Shaikh Fisher Work Phone: [facility] [place] Work Phone: Start: 08-12-2023 End: 08-12-2023 ambulatory SHAIKH NATALIA Not Available Start: 07-31-2023 End: 07-31-2023 ambulatory ESME HARLEY Not Available Start: 12-20-2022 End: 12-20-[address] GEOFFREY COPELAND . Facility: Start: 10-16-2022 End: 10-31-2022 ambulatory SHAIKH Deon FISHER Facility: Start: 09-16-2022 End: 09-17-2022 ambulatory SHAIKH Deon FISHER Facility:[facility] Start: 09-06-2022 End: 09-15-2022 ambulatory SHAIKH Deon FISHER Facility:[facility] Start: 09-04-2022 End: 09-05-[address] ONUR SOLANO Facility:[facility] Start: 08-29-2022 End: 08-30-2022 ambulatory NEIDA GRAYVICTOR M Facility:[facility] Start: 08-01-2022 End: 08-02-2022 ambulatory NEIDA GRAYLIENCarlos Facility:[facility] Start: 07-12-2022 End: 07-13-2022 ambulatory SHAIKH Deon FISHER Facility:[facility] Start: 04-03-2022 End: 04-03-[address] MIRELLA GUEVARA Facility:[facility] Payers Date Payer Category Payer Self-pay 1957 Unknown [id number] 1957 Unknown [id number] 1950 Unknown [id number] 2.16.84 [id number] 1950 Unknown [id number] 2.16.84 [id number] 1950 Unknown [id number] 2.16.84 [id number] 1950 Unknown [id number] 2.16.84 [id number] 1950 Unknown [id number] 2.16.84 [id number] 1950 Unknown [id number] 2.16.84 [id number] 1950 Unknown [id number] 2.16.84 0.1.113836.3.579.2.593 1950 Unknown [id number] 2.16.84 [id number] 1950 Unknown [id number] 2.16.84 [id number] 1950 Unknown [id number] 2.16.840 .[id number] 1950 Unknown [id number] 2.16.840. [id number] Medicare Medicare [id number] 296 [id number] Unknown [id number] 2.16.8 [id number] Social History Date Type Detail Facility Tobacco smoking stat [facility] Unknown if ever smoked [facility] Work Phone: Start: 1950 Sex Assigned At Female F [facility] Clinical Note 11-10-2021 Note Date & Type Note Facility 11-10-2021 Note PROCEDURE: [employer] HDXT 1.5 Sagittal T1, T2, STIR and axial T1 and T2 contiguous and cone down images through the lumbar spine were performed without contrast administration. HISTORY: Chronic low back pain, bilateral thigh radiation, prior lumbar history of surgery 2013. FINDINGS: Normal vertebral body heights. No bone marrow signal intensity or fracture. 5 mm retrolisthesis T12 upon L1, L1 upon L2. Intervertebral fusion hardware L3-4, L4-5. No significant soft tissue inflammation. Unremarkable paravertebral soft tissues. T12-L1: and L1-2: Severe disc space loss. 5 mm retrolisthesis. Mild posterior osteophyte formation, facet arthropathy, ligmentum flavum hypertrophy. No spinal canal or neuroforaminal stenosis. L2-3: Moderate disc space loss. Mild posterior disc osteophyte complex. No spinal canal stenosis. Moderate facet arthropathy, ligamentum flavum hypertrophy. No spinal canal or neuroforaminal stenosis. L3-4 and : Normal disc volume, intervetebral fusion hardware. 2mm anterolisthesis. No disc herniation, spinal canal or neuroforaminal stenosis. Mild to moderate facet arthropathy and ligamentum flavum hypertorphy. L4-5: Normal disc volume, intervertebral fusion hardware. No disc herniation, spinal canal or neuroforaminal stenosis. Mild facet arthropathy and ligamentum flavum hypertrophy. L5-S1: Normal. IMPRESSION: 1. L3-4, L4-5 fusion, proximal arthritis. No significant spinal canal or neuroforaminal stenosis. NOTE: Nomenclature on this current MRI reflects end plate fusion hardware at L3-4 and L4-5. Current plain film appearance may label these two levels as L4-5 and L5-S1. Report reported and signed by Michael Cristina on 11/10/2021 1522 [facility] Credit Reporting Clerk Evaluation note Note Date & Type Note Facility Evaluation note No assessment information availa [facility] Work Phone: Summary Purpose Family History No Family History Records FoundNo Family History Records FoundNo Family History Records FoundNo Family History Records Found Advance Directives No Advanced Directives Records Found Advance Directive Response Recorded Date/ Time Advance Directives No August 9:55am Chief Complaint and Reason for Visit Chief Complaint G31.84 Additional Source Comments INFORMATION SOURCE (unrecogn ized section and content) DATE CREATED AUTHOR 11/11/2021 [facility] dical Specialist DATE CREATED AUTHOR AUTHOR'S ORGANIZ ATION 12/21/2022 [facility] DATE CREATED AUTHOR AUTHOR'S ORGANIZ ATION 08/12/2023 [facility] dical Specialists EPIC DATE CREATED AUTHOR AUTHOR'S ORGANIZ ATION 09/08/2023 [facility] Care Teams (unrecognized sec tion and content) Team Status: Active Member Role Status Dates Shaikh Natalia MD Primary Care Provider Active Team Status: Inactive Member Role Status Dates Shaikh Natalia MD Primary Care Provider Active Terra Solorzano DO Attending Provider Active Goals (unrecognized section and content) Goals may be documented in a n alternate section FOR RECORDS PERTAINING TO PATIENTS WHO ARE OR HAVE BEEN ENROLLED IN A CHEMICAL DEPENDENCY/SUBSTANCEABUSE PROGRAM, SOME INFORMATION MAY BE OMITTED. This clinical summary was aggregated from multiple sources. Caution should be exercised in using it in the provision of clinical care. This summary normalizes information from multiple sources, and as a consequence, information in this document may materially change the coding, format and clinical context of patient data. In addition, data may be omitted in some cases. CLINICAL DECISIONS SHOULD BE BASED ON THE PRIMARY CLINICAL RECORDS. [facility] provides no warranty or guarantee of the accuracy or completeness of information in this document.
[2023-09-26 12:32] LABS: Basophils Percent Auto 0.4 % (0.2-2.0); Eosinophils Absolute Auto 0.1 10^3/uL (0.0-0.7); Eosinophils Percent Auto 1.4 % (0.9-7.0); Hematocrit 37.1 % (36.0-48.0); Hemoglobin 12.2 g/dL (12.0-16.0); Lymphocytes Absolute Auto 1.6 10^3/uL (1.2-3.8); Lymphocytes Percent Auto 30.8 % (20.5-60.0); Mean Corpuscular HGB Conc 32.9 g/dL (29.9-35.2); Mean Corpuscular Volume 94.2 fL (81.0-99.0); Mean Platelet Volume 9.9 fL (9.5-13.5); Monocytes Absolute Auto 0.4 10^3/uL (0.3-0.8); Monocytes Percent Auto 8.4 % (1.7-12.0); Platelet Count 236 10^3/uL (150-450); Red Blood Count 3.94 10^6/uL (4.20-5.40); Red Cell Distribution Width 12.9 % (11.0-15.0); White Blood Count 5.1 10^3/uL (4.0-11.0)
[2023-09-26 13:33] LABS: Alanine Aminotransferase 17 U/L (14-59); Albumin Globulin Ratio 1.1; Albumin Level 3.7 g/dL (3.4-5.0); Alkaline Phosphatase 83 U/L (46-116); Anion Gap 11.1; Aspartate Amino Transferase 16 U/L (15-37); BUN Creatinine Ratio 15.5; Bilirubin Total 1.4 mg/dL (0.2-1.0); Calcium 9.4 mg/dL (8.5-10.1); Carbon Dioxide 31.4 mmol/L (21.0-32.0); Chloride 105 mmol/L (98-107); Chol HDL Ratio 3.1; Cholesterol 264 mg/dL (<=200); Estimated GFR (African America >60 (>=60); Estimated GFR (Non-African Ame >60 (>=60); Globulin 3.5 g/dL; Glucose 99 mg/dL (74-106); HDL Cholesterol 84 mg/dL (40-60); Potassium 3.5 mmol/L (3.5-5.1); Sodium 144 mmol/L (136-145); Total Protein 7.2 g/dL (6.4-8.2); Triglycerides 53 mg/dL (<=150); VLDL CHOLESTEROL 10.6 mg/dL
== END 2023-09-26 12:19 | disposition home or self-care (01) ==
LOC: LAB 12:19
PROVIDERS: PCP Internal Medicine; Visit Provider Internal Medicine
DX: E78.5 Hyperlipidemia, unspecified (principal); I10 Essential (primary) hypertension
CPT/HCPCS: 36415; 80053; 80061; 85025

== ENCOUNTER 2024-03-25 12:51 | Outpatient (OUT) | payer OTHER, SELFPAY ==
[2024-03-25 13:48] LABS: Alanine Aminotransferase 15 U/L (14-59); Albumin Globulin Ratio 1.1; Albumin Level 3.6 g/dL (3.4-5.0); Alkaline Phosphatase 76 U/L (46-116); Aspartate Amino Transferase 17 U/L (15-37); Bilirubin Direct 0.2 mg/dL (0.0-0.2); Bilirubin Total 1.2 mg/dL (0.2-1.0); Chol HDL Ratio 2.8; Cholesterol 225 mg/dL (<=200); Globulin 3.2 g/dL; HDL Cholesterol 80 mg/dL (40-60); Total Protein 6.8 g/dL (6.4-8.2); Triglycerides 55 mg/dL (<=150)
== END 2024-03-25 12:52 | disposition home or self-care (01) ==
LOC: LAB 12:53
PROVIDERS: PCP Internal Medicine; Visit Provider Internal Medicine
DX: E78.5 Hyperlipidemia, unspecified (principal)
CPT/HCPCS: 36415; 80061; 80076

== ENCOUNTER 2024-06-29 16:25 | Emergency (ER) | payer OTHER, SELFPAY ==
[2024-06-29 16:27] VITALS: BP 144/76; PULSE 80; TEMP 36.6; O2SAT 96
--- OUTSIDE RECORDS SUMMARY | 2024-06-29 16:33 | XMS_ITS | CCD ---
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 Name Role Phone DR ONUR SOLANO Consulting Unavailable FAWWAD, SANDERS H Attending Unavailable FAWWAD, SANDERS H Primary Care Unavailable FAWWAD, SANDERS H Admitting Unavailable FAWWAD, SANDERS H Consulting Unavailable FAWWAD, SANDERS H Attending Unavailable DR CARLOS KEMP V Consulting Unavailable FAWWAD, SANDERS H Primary Care Unavailable FAWWAD, SANDERS H Admitting Unavailable FAWWAD, SANDERS H Consulting Unavailable AICHHOLZ, LIP AND GATE BUILDER FAMILIA Consulting Unavailable AICHHOLZ, LIP AND GATE BUILDER FAMILIA Admitting Unavailable AICHHOLZ, LIP AND GATE BUILDER FAMILIA Attending Unavailable FAWWAD, SANDERS H Primary Care Unavailable ZIEBDR ONUR EASON Consulting Unavailable FAWWAD, SANDERS H [...] Unavailable FAWWAD, SANDERS H Primary Care Unavailable ISMAEL, DR VU Consulting Unavailable ISMAEL, DR VU Admitting Unavailable STEPYISEL, DR VU Attending Unavailable FAWWAD, SANDERS H Primary Care Unavailable RAFFIEBDR ONUR EASON Consulting Unavailable AICHHOLZ, LIP AND GATE BUILDER FAMILIA Consulting Unavailable AICHHOLZ, LIP AND GATE BUILDER FAMILIA Admitting Unavailable AICHHOLZ, LIP AND GATE BUILDER FAMILIA Attending Unavailable FAWWAD, SANDERS H Primary Care Unavailable DR ONUR SOLANO Consulting Unavailable MD Natalia [facility] Primary Care Provider DO Jorge Ladd Attending [facility] Primary Care Unavailable Jorge Ladd Attending Unavailable Jorge Ladd Admitting Unavailable JORGE LADD Attending Unavailable JORGE LADD Referring Unavailable [facility] Primary Care Unavailable Natalia FELIX, [facility] Primary [facility] Provider MIRZA BRITT Attending Unavailable PUMA ROCHA Referring Unavailable [facility] Primary Care Unavailable MIRZA BRITT Attending Unavailable PUMA ROCHA Referring Unavailable [facility] Primary Care Unavailable LASHELL HARLEY Attending Unavailable NATALIA, Attending Unavailable NATALIA, Attending Unavailable SHAIKH FISHER Attending Unavailable NATALIA, Attending Unavailable Allergies Allergy Classification Reported Allergen(s) Allergy Type Date of Onset Reaction(s) Facility (1 source) Acetaminophen / oxyCODONE Drug Allergy 3 [facility] Repository (1 source) Morphine Drug Allergy 3 [facility] (4 sources) Acetaminophen / oxyCODONE; Translations: [OXYCODONE-ACETAM INOPHEN] Drug Allergy 7 Itching [facility] Repository (4 sources) Adhesive agent; Translations: [ADHESIVE] Propensity to adverse reactions to drug (disorder) 4 Other (See Comments) [facility] Medications Current Medications Medication Drug Class(es) Dates Sig (Normalized) Sig (Original) [id number] 200 actuat albuterol 0.09 mg/actuat metered dose inhaler (2 sources) beta2-Adrenergic Agonist take 2 puff(s) by inhalation every six hours as needed for wheezing albuterol (PROVENTIL HFA;VENTOLIN HFA) 90 mcg/actuation inhaler Inhale 2 puffs every 6 (six) hours as needed for wheezing. 0 Active vitamin b12 1 mg oral tablet (2 sources) Vitamin B12 Start: 07-11-2023 take 1 tablet by mouth in the morning cyanocobalamin (vitamin B-12) 1000 MCG tablet Indications: B12 deficiency Take 1 tablet (1,000 mcg total) by mouth in the morning. 90 tablet 1 07/11/2023 Active Problems Active Problems Problem Classification Problem Date Documented Da te Episodic/Chronic Conditions associated with dizziness or vertigo (5 sources) Meniere's disease, left ear; Translations: [MENIERES DISEASE LEFT EAR] Onset: 09-12-2022 Chronic Conditions associated with dizziness or vertigo (5 sources) Dizziness; Translations: [Dizziness and giddiness] Onset: 06-13-2023 Resolved: 06-13-2023 10-16-2023 Episodic Disorders of lipid metabolism (1 source) Hyperlipidemia, unspecified; Translations: [HYPERLIPIDEMIA UNSPECIFIED] Onset: 09-02-2022 Chronic Essential hypertension (3 sources) Essential (primary) hypertension; Translations: [Hypertensive disorder] Onset: 05-15-2014 06-13-2023 Chronic Fever of unknown origin (1 source) Fever, unspecified; Translations: [FEVER UNSPECIFIED] Onset: 12-21-2022 Episodic Nausea and vomiting (4 sources) Nausea with vomiting, unspecified; Translations: [NAUSEA WITH VOMITING UNSPECIFIED] Onset: 12-20-2022 Episodic Osteoarthritis (4 sources) Unilateral primary osteoarthritis, right hip; Translations: [UNI PRIM OSTEOARTHRITIS RT HIP] Onset: 04-03-2022 Chronic Other aftercare (1 source) [facility] (current) use of aspirin; 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] Onset: 12-21-2022 Episodic Other ear and sense organ disorders (1 source) Sensorineural hearing loss, bilateral; Translations: [Sensorineural hearing loss, bilateral] 10-16-2023 Chronic Other ear and sense organ disorders (2 sources) Bilateral tinnitus; Translations: [Tinnitus, bilateral] 10-16-2023 Episodic Other gastrointestinal disorders (1 source) Diarrhea, unspecified; Translations: [DIARRHEA UNSPECIFIED] Onset: 12-21-2022 Episodic Other hereditary and degenerative nervous system conditions (1 source) Mild cognitive impairment, so stated; Translations: [Mild cognitive impairment of uncertain or unknown etiology] Onset: 09-26-2023 Chronic Spondylosis; intervertebral disc disorders; other back problems [...] Translations: [CARDIAC MURMUR UNSPECIFIED] Onset: 09-02-2022 Episodic Mood disorders (2 sources) Mood disorders Onset: 07-11-2023 07-11-2023 Nonspecific chest pain (4 sources) Chest pain, unspecified; Translations: [CHEST PAIN UNSPECIFIED] Onset: 08-29-2022 Episodic Nutritional deficiencies (2 sources) Cobalamin deficiency; Translations: [Deficiency of other specified B group vitamins] Onset: 07-11-2023 07-11-2023 Episodic Other injuries and conditions due to [...] Test Name Value Interpretation Reference Range Facility MR BRAIN WO CONTon MR BRAIN WO CONT MR BRAIN WO CONT MRI brain: HISTORY: Cognitive impairment. Mental status change. Multisequence multiplanar imaging of the brain was obtained. Few foci of increased signal within the white matter best visualized on FLAIR sequences are age-appropriate. The diffusion-weighted images and corresponding ADC map show no focus of diffusion restriction or acute intracranial ischemia. Cerebellar hemispheres appear symmetric. Pituitary infundibulum is midline. No intracranial mass or evidence of vasogenic edema. Cerebral volume appears appropriate. No significant ventricular dilatation. The paranasal sinuses and mastoid air cells are clear. IMPRESSION: No acute intracranial findings. Finalized by Maurice Haskins MD on 09/26/2023 7:49 PM Normal [facility] Folate [Mass/volume] in Seru m or PlasmaOrdered By: Jorge Ladd on 09-03-2023 Folate [Mass/Vol] 15.2 ng/mL >5.9 [facility] Comment on above: Folate reference ran ge: >5.9 ng/mlThe WHO technical consultation on folate and vitamin d19dgooecsuyffw has determined that folate concentrations lessthan 4 ng/ml are considered deficient. Thyrotropin [Units/volume] i n Serum or PlasmaOrdered By: Jorge Ladd on 09-03-2023 TSH Qn 1.89 m[IU]/L Normal 0.45-5.33 [facility] Comment on above: Result Comment: PERF ORMED BY: [place] [address] PATHOLOGIST MORTGAGE LOAN OFFICER LISSA SORIANO M.D. Performed By: #### T SH3, [id number] #### [address] Vit. B12/Folate Profileon Folate 15.2 ng/mL Normal >5.9 [facility] Comment on above: Result Comment: Mel te reference range: >5.9 ng/ml The [facility] technical consultation on folate and vitamin b12 deficiencies has determined that folate concentrations less than 4 ng/ml are considered deficient. Performed By: #### T SH3, [id number] #### [facility] [address] [place] [address] Vitamin B12 ser/plasOrdered By: Jorge Ladd on 09-03-2023 Cobalamin (Vitamin B12) [Mass/Vol] 711 pg/mL Normal 180-914 [facility] Comment on above: Performed By: #### T SH3, [id number] #### [facility] [address] [place] [address] [facility] CBC AUTO DIFFon 12-20-2022 BASO # 0.0 103/ul Normal 0.0-0.1 [facility] Comment on above: Performed By: #### C BC ####[facility] [address] [place] [address]Dr. Veena Hernández Basophils/100 WBC (Bld) 0.1 % Critically low 0.2-2.0 [facility] Comment on above: Performed By: #### C BC ####[facility] [address] [place] [address]Dr. Valeha Hernández EO # 0.1 103/ul Normal 0.0-0.7 [facility] Comment on above: Performed By: #### C BC ####[facility] [address] [place] [address]Dr. Veena Edgar Eosinophils/100 WBC (Bld) 1.2 % Normal 0.9-7.0 [facility] Comment on above: Performed By: #### C BC ####[facility] [address] [place] [address]Dr. Veena Hernández Erythrocyte distribution width (RBC) [Ratio] 13.2 % Normal 11.0-15.0 [facility] Comment on above: Performed By: #### C BC ####[facility] [address] [place] [id number]. Veena Hernández Hematocrit (Bld) [Volume fraction] 38.4 % Normal 36.0-48.0 [facility] Comment on above: Performed By: #### C BC ####[facility] [address] [place] [address]Dr. Veena Hernández Hemoglobin (Bld) [Mass/Vol] 12.6 g/dL Normal 12.0-16.0 [facility] Comment on above: Performed By: #### C BC ####[facility] [address] [place] [id number]. Veena Hernández IG # 0.02 10e3/ul Normal 0.00-0.03 [facility] Comment on above: Performed By: #### C BC ####[facility] [address] [place], [place] [address]Ez. Veena Hernández IG % 0.3 % Normal 0.0-0.5 [facility] Comment on above: Performed By: #### C BC ####[facility] [address] [place], [place] [address]If. Veena Hernández LYMPH # 0.3 103/ul Critically low 1.2-3.8 The [facility] Comment on above: Performed By: #### C BC ####[facility] [address] [place] [id number]. Veena Hernández Lymphocytes/100 WBC (Bld) 4.1 % Critically low 20.5-60.0 [facility] Comment on above: Performed By: #### C BC ####[facility] [address] [place] [id number]. Veena Hernández MANUAL DIFF REQ NO Normal [facility] Comment on above: Performed By: #### C BC ####[facility] [address] [place] [phone]. Veena Hernández MCH (RBC) [Entitic mass] 31.4 pg Normal 26.7-34.0 [facility] Comment on above: Performed By: #### C BC ####[facility] [address] [place] [id number]. Veena Hernández MCHC (RBC) [Mass/Vol] 32.8 g/dL Normal 29.9-35.2 [facility] Comment on above: Performed By: #### C BC ####[facility] [address] [place] [phone]. Veena Hernández MCV (RBC) [Entitic vol] 95.8 fL Normal 81.0-99.0 [facility] Comment on above: Performed By: #### C BC ####[facility] [address] [place] [phone]. Veena Hernández MONO # 0.3 103/ul Normal 0.3-0.8 [facility] Comment on above: Performed By: #### C BC ####[facility] [address]wh[address] [place] [id number]. Veena Hernández Monocytes/100 WBC (Bld) 3.8 % Normal 1.7-12.0 [facility] Comment on above: Performed By: #### C BC ####[facility] [address] [place] [id number]. Veena Hernández NEUT # 7.1 103/ul Critically high 1.4-6.5 [facility] Comment on above: Performed By: #### C BC ####[facility] [address] [place] [phone]. Veena Hernández Neutrophils/100 WBC (Bld) 90.5 % Critically high 43.0-75.0 [facility] Comment on above: Performed By: #### C BC ####[facility] [address] [place] [phone]. Veena Hernández Platelet mean volume (Bld) [Entitic vol] 9.8 fL Normal 9.5-13.5 [facility] Comment on above: Performed By: #### C BC ####[facility] [address] [place] [phone]. Veena Hernández PLT 231 103/ul Normal 150-450 [facility] Comment on above: Performed By: #### C BC ####[facility] [address] [place] [phone]. Veena Hernández RBC 4.01 106/ul Critically low 4.20-5.40 [facility] Comment on above: Performed By: #### C BC ####[facility] [address] [place] [phone]. Veena Hernández WBC 7.8 103/ul Normal 4.0-11.0 [facility] Comment on above: Performed By: #### C BC ####[facility] [address] [place] [phone]. Veena Hernández Covid-19 PCR (CVDTB)on SARS-CoV-2 (COVID-19) RNA ROGER+probe Ql (Unsp spec) Not detected Normal NOT DETECTED [facility] Comment on above: Result Comment: This test is not yet approved or cleared by the [place] FDA. When there are no FDA-approved or cleared tests available, and other criteria are met, FDA can make tests available under an emergency access mechanism called an Emergency Use Authorization (EUA). The EUA for this test is supported by the [place] of Health and Human Service's (HHS's) declaration [...] consistent with SARS-CoV-2. Performed By: #### C VDTB ####[facility] [address] [place], [place] [address]Dr. Veena [facility] INFLUENZA A AND B AGon 12-20 [facility] SEE BELOW Normal [facility] Comment on above: Result Comment: Nega tive for Flu A protein angiten. Infection due to Flu A cannot be ruled out. Flu A angiten in the sample may be below the detection limit of the test. Performed By: #### I NFLUAB ####[facility] [address] [place], [place] [address]Dr. Veena [facility] INFLUBNEGH SEE BELOW Normal [facility] Comment on above: Result Comment: Nega tive for Flu B protein antigen. Infection due to Flu B cannot be ruled out. Flu B antigen in the sample may be below the detection limit of the test. Performed By: #### I NFLUAB ####[facility] [address] [place], [place] [address]Dr. Veena Hernández INFLUENZA A AG Negative Normal NEGATIVE SEE COMMENT [facility] Comment on above: Performed By: #### I NFLUAB ####[facility] [address] [place], [place] [address]Dr. Yiha Hernández INFLUENZA B AG Negative Normal NEGATIVE SEE COMMENT [facility] Comment on above: Performed By: #### I NFLUAB ####[facility] [address] [place] [address]Dr. Veena Hernández LACTATE/LACTIC ACIDon 2022 Lactate [Moles/Vol] 0.7 mmol/L Normal 0.4-2.0 [facility] Comment on above: Performed By: #### L ACT ####[facility] [address] [place] [address]Dr. Veena Hernández LIPASEon 12-20-2022 Lipase [Catalytic activity/Vol] 309.0 U/L Normal 73.0-393.0 [facility] Comment on above: Performed By: #### L IPA, HSTROPN, CMP ####[facility] Lgbmlg[address]zor[address] [place], [place] [address]Dr. Veena Hernández PROF 14(COMP METB)on 023 Albumin [Mass/Vol] 3.7 g/dL Normal 3.4-5.0 [facility] Comment on above: Performed By: #### L IPA, HSTROPN, CMP ####[facility] Qssrhq[address]sv[address] [place], [place] [address]Dr. Veena Hernández Albumin/Globulin [Mass ratio] 1.2 {ratio} Normal [facility] Comment on above: Performed By: #### L IPA, HSTROPN, CMP ####[facility] [address] [place] [address]Dr. Veena Hernández ALP [Catalytic activity/Vol] 85 U/L Normal 46-116 [facility] Comment on above: Performed By: #### L IPA, HSTROPN, CMP ####[facility] [address] [place] [address]Dr. Veena Hernández ALT [Catalytic activity/Vol] 15 U/L Normal 14-59 [facility] Comment on above: Performed By: #### L IPA, HSTROPN, CMP ####[facility] [address]ftx[address] [place] [address]Dr. Veena Hernández Anion gap [Moles/Vol] 11.2 mmol/L Normal [facility] Comment on above: Performed By: #### L IPA, HSTROPN, CMP ####[facility] B[address]um[address] [place] [address]Dr. Veena Hernández AST [Catalytic activity/Vol] 15 U/L Normal 15-37 [facility] Comment on above: Performed By: #### L IPA, HSTROPN, CMP ####[facility] Jegmtrulxi[address] [place], [place] [address]Dr. Veena Hernández Bilirubin [Mass/Vol] 0.9 mg/dL Normal 0.2-1.0 [facility] Comment on above: Performed By: #### L IPA, HSTROPN, CMP ####[facility] [address] [place], [place] [address]Dr. Veena Hernández Calcium [Mass/Vol] 8.7 mg/dL Normal 8.5-10.1 [facility] Comment on above: Performed By: #### L IPA, HSTROPN, CMP ####[facility] P[address]cofe[address] [place], [place] [address]Dr. Veena Hernández Chloride [Moles/Vol] 104 mmol/L Normal 98-107 [facility] Comment on above: Performed By: #### L IPA, HSTROPN, CMP ####[facility] [address] [place], [place] [address]Dr. Veena Hernández CO2 [Moles/Vol] 27.8 mmol/L Normal 21.0-32.0 [facility] Comment on above: Performed By: #### L IPA, HSTROPN, CMP ####[facility] [address] [place], [place] [address]Dr. Veena Hernández Creatinine [Mass/Vol] 0.77 mg/dL Normal 0.55-1.02 [facility] Comment on above: Performed By: #### L IPA, HSTROPN, CMP ####[facility] [address] [place] [address]Dr. Veena Hernández EGFR-AF INDONESIAN >60 Normal >=60 [facility] Comment on above: Performed By: #### L IPA, HSTROPN, CMP ####[facility] [address] [place] [address]Dr. Veena Hernández EGFR-NON AF INDONESIAN >60 Normal >=60 [facility] Comment on above: Performed By: #### L IPA, HSTROPN, CMP ####[facility] [address]fe[address] [place] [address]Dr. Veena Hernández Globulin (S) [Mass/Vol] 3.2 g/dL Normal [facility] Comment on above: Performed By: #### L IPA, HSTROPN, CMP ####[facility] [address] [place] [address]Dr. Veena Hernández Glucose [Mass/Vol] 121 mg/dL Critically high 74-106 [facility] Comment on above: Performed By: #### L IPA, HSTROPN, CMP ####[facility] [address]irt[address] [place] [address]Dr. Veena Hernández Potassium [Moles/Vol] 4.0 mmol/L Normal 3.5-5.1 [facility] Comment on above: Performed By: #### L IPA, HSTROPN, CMP ####[facility] I[address] [place], [place] [address]Dr. Veena Hernández Protein [Mass/Vol] 6.9 g/dL Normal 6.4-8.2 [facility] Comment on above: Performed By: #### L IPA, HSTROPN, CMP ####[facility] [address] [place] [address]Dr. Veena Hernández Sodium [Moles/Vol] 139 mmol/L Normal 136-145 [facility] Comment on above: Performed By: #### L IPA, HSTROPN, CMP ####[facility] [address] [place], [place] [address]Dr. Veena Hernández Urea nitrogen [Mass/Vol] 19.0 mg/dL Critically high 7.0-18.0 [facility] Comment on above: Performed By: #### L IPA, HSTROPN, CMP ####[facility] [address] [place], [place] [address]Jj. Veena Hernández Urea nitrogen/Creatinine [Mass ratio] 24.7 mg/mg Normal [facility] Comment on above: Performed By: #### L IPA, HSTROPN, CMP ####[facility] [address]oub[address] [place], [place] [address]Tb. Veena Hernández SYMPTOMATIC COVID-19 ANTIGEN on 12-20-2022 EUA Statement SEE BELOW Normal [facility] Comment on above: Result Comment: This test [...] revoked sooner. Performed By: #### C VDAGS ####[facility] [address] [place] [address]Dr. Veena Hernández SARS-CoV-2 (COVID-19) RNA ROGER+probe Ql (Unsp spec) Negative Normal NEGATIVE [facility] Comment on above: Performed By: #### C VDAGS ####[facility] [address] [place] [id number]. Veena Hernández TROPONIN, HIGH SENSITIVITYon 12-20-2022 HSTROP <4.0 Normal 4.0-51.3 [facility] Comment on above: Result Comment: CUT- OFF POINTS HAVE BEEN ESTABLISHED BASED ON THE FOURTH UNIVERSAL DEFINITIONS OF MYOCARDIAL INFARCTION. THE UPPER REFERENCE LIMIT (URL) OF TROPONIN, DEFINED THE 99TH PERCENTILE OF cTnI DISTRIBUTION IN A REFERENCE POPULATION, HAS BEEN CONFIRMED THE DECISION THRESHOLD FOR AK DIAGNOSIS. Performed By: #### L IPA, HSTROPN, CMP ####[facility] [address] [place], [place] [address]TyLindsey Hernández XR CSPINE 2_3 VIEWSon 2021 XR [...] by: ONUR SOLANO Date: 2022-09-05 17:06 Normal [facility] ECHOCARDIO M/2D COMPLETEon 1 10-30-2021 ECHOCARDIO M/2D COMPLETE Patient: KEVON CAMPOS Exam Date: 08/29/2022 : 1950 Gender:F Ordering : NEIDA MEREDITH [facility] Admission #: [id number] Family : Order #: [id number] CLICK HERE TO VIEW EXAM ECHOCARDIOGRAM REPORT [...] Haney M.D. on 08/30/2022 at 12:57 Normal [facility] NM STRESS/REST MULTIon 08-29 NM STRESS/REST MULTI Patient: KEVON CAMPOS Exam Date: 08/29/2022 : 1950 Gender:F Ordering : NEIDA FAMILIA MARYDeonLIENCarlos [facility] Admission #: [id number] Family : Order #: [id number] CLICK HERE TO VIEW EXAM RADIOLOGY REPORT [...] Solano M.D. on 08/29/2022 at 15:58 Normal [facility] BNPon 08-01-2022 Natriuretic peptide B (Bld) [Mass/Vol] 41.0 pg/mL Normal <=900.0 [facility] Comment on above: Performed By: #### C K, CKMB, REINALDO, CMP, BNP, HSTROPN #### [facility] [address] [place] [address] [address] Veena Hernández CBC AUTO DIFFon 08-01-2022 BASO # 0.0 103/ul Normal 0.0-0.1 [facility] Comment on above: Performed By: #### C BC ####[facility] [address] [place] [address]Dr. Veena Hernández Basophils/100 WBC (Bld) 0.8 % Normal 0.2-2.0 [facility] Comment on above: Performed By: #### C BC ####[facility] [address] [place] [address]DrLindsey Hernández EO # 0.1 103/ul Normal 0.0-0.7 [facility] Comment on above: Performed By: #### C BC ####[facility] [address] [place], [place] [address]DrLindsey Hernández Eosinophils/100 WBC (Bld) 1.3 % Normal 0.9-7.0 [facility] Comment on above: Performed By: #### C BC ####[facility] [address] [place], [place] [address]DrLindsey Hernández Erythrocyte distribution width (RBC) [Ratio] 13.3 % Normal 11.0-15.0 [facility] Comment on above: Performed By: #### C BC ####[facility] [address] [place], [place] [address]DrLindsey Hernández Hematocrit (Bld) [Volume fraction] 39.3 % Normal 36.0-48.0 [facility] Comment on above: Performed By: #### C BC ####[facility] [address] [place], [place] [address]DrLindsey Hernández Hemoglobin (Bld) [Mass/Vol] 12.9 g/dL Normal 12.0-16.0 [facility] Comment on above: Performed By: #### C BC ####[facility] [address] [place] [id number]. Veena Hernández IG # 0.00 10e3/ul Normal 0.00-0.03 [facility] Comment on above: Performed By: #### C BC ####[facility] [address] [place] [address]Dr. Veena Hernández IG % 0.0 % Normal 0.0-0.5 [facility] Comment on above: Performed By: #### C BC ####[facility] [address] [place] [address]Dr. Veena Edgar LYMPH # 1.8 103/ul Normal 1.2-3.8 [facility] Comment on above: Performed By: #### C BC ####[facility] [address] [place] [address]Dr. Valeha Hernández Lymphocytes/100 WBC (Bld) 34.3 % Normal 20.5-60.0 [facility] Comment on above: Performed By: #### C BC ####[facility] [address] [place] [address]Dr. Valeha Hernández MANUAL DIFF REQ NO Normal [facility] Comment on above: Performed By: #### C BC ####[facility] [address] [place] [address]Dr. Veena Hernández MCH (RBC) [Entitic mass] 31.1 pg Normal 26.7-34.0 [facility] Comment on above: Performed By: #### C BC ####[facility] [address] [address]Dr. Veena Hernández MCHC (RBC) [Mass/Vol] 32.8 g/dL Normal 29.9-35.2 [facility] Comment on above: Performed By: #### C BC ####[facility] [address] [place], [place] [address]Dr. Veena Ehrnández MCV (RBC) [Entitic vol] 94.7 fL Normal 81.0-99.0 [facility] Comment on above: Performed By: #### C BC ####[facility] [address] [place], [place] [id number]. Veena Hernández MONO # 0.3 103/ul Normal 0.3-0.8 [facility] Comment on above: Performed By: #### C BC ####[facility] [address] [id number]. Veena Hernández Monocytes/100 WBC (Bld) 6.1 % Normal 1.7-12.0 [facility] Comment on above: Performed By: #### C BC ####[facility] [address] [address]Dr. Veena Hernández NEUT # 3.0 103/ul Normal 1.4-6.5 [facility] Comment on above: Performed By: #### C BC ####[facility] [address] [address]Dr. Veena Hernández Neutrophils/100 WBC (Bld) 57.5 % Normal 43.0-75.0 [facility] Comment on above: Performed By: #### C BC ####[facility] [address] [place], [place] [address]Dr. Veena Hernández Platelet mean volume (Bld) [Entitic vol] 9.8 fL Normal 9.5-13.5 [facility] Comment on above: Performed By: #### C BC ####[facility] [address] [place] [address]Dr. Veena Hernández PLT 227 103/ul Normal 150-450 [facility] Comment on above: Performed By: #### C BC ####[facility] [address] [place] [id number]. Veena Hernández RBC 4.15 106/ul Critically low 4.20-5.40 [facility] Comment on above: Performed By: #### C BC ####[facility] [address] [id number]. Veena Hernández WBC 5.3 103/ul Normal 4.0-11.0 [facility] Comment on above: Performed By: #### C BC ####[facility] [address] [place] [address]Dr. Veena Hernández CKMBon 11-16-2022 CK.MB [Mass/Vol] 0.90 ng/mL Normal <=3.60 [facility] Comment on above: Performed By: #### C K, CKMB, REINALDO, CMP, BNP, HSTROPN #### [facility] [address] [address] [address] Veena Hernández CPKon 08-01-2022 CK [Catalytic activity/Vol] 66 U/L Normal 26-192 [facility] Comment on above: Performed By: #### C K, CKMB, REINALDO, CMP, BNP, HSTROPN #### [facility] [address] [address] [address] Veena Hernández MYOGLOBINon 08-01-2022 REINALDO 38 ng/mL Normal 9-82 [facility] Comment on above: Performed By: #### C K, CKMB, REINALDO, CMP, BNP, HSTROPN ####[facility] [address] [address]Dr. Veena Hernández PROF 14(COMP METB)on 022 Albumin [Mass/Vol] 4.0 g/dL Normal 3.4-5.0 [facility] Comment on above: Performed By: #### C K, CKMB, REIANLDO, CMP, BNP, HSTROPN #### [facility] [address] [address] [address] Veena Hernández Albumin/Globulin [Mass ratio] 1.3 {ratio} Normal [facility] Comment on above: Performed By: #### C K, CKMB, REINALDO, CMP, BNP, HSTROPN #### [facility] [address] [address] [address] Veena Hernández ALP [Catalytic activity/Vol] 69 U/L Normal 46-116 [facility] Comment on above: Performed By: #### C K, CKMB, REINALDO, CMP, BNP, HSTROPN #### [facility] [address] [address] [address] Veena Hernández ALT [Catalytic activity/Vol] 15 U/L Normal 14-59 [facility] Comment on above: Performed By: #### C K, CKMB, REINALDO, CMP, BNP, HSTROPN #### [facility] [address] [address] [address] Veena Hernández Anion gap [Moles/Vol] 7.4 mmol/L Normal [facility] Comment on above: Performed By: #### C K, CKMB, REINALDO, CMP, BNP, HSTROPN #### [facility] [address] [place] [address] Dr. Veena Hernández AST [Catalytic activity/Vol] 14 U/L Critically low 15-37 [facility] Comment on above: Performed By: #### C K, CKMB, REINALDO, CMP, BNP, HSTROPN #### [facility] [address] [place] [address] Dr. Veena Hernández Bilirubin [Mass/Vol] 1.9 mg/dL Critically high 0.2-1.0 [facility] Comment on above: Performed By: #### C K, CKMB, REINALDO, CMP, BNP, HSTROPN #### [facility] [address] [address] [address] Veena Hernández Calcium [Mass/Vol] 9.4 mg/dL Normal 8.5-10.1 [facility] Comment on above: Performed By: #### C K, CKMB, REINALDO, CMP, BNP, HSTROPN #### [facility] [address] [place] [address] Dr. Veena Hernández Chloride [Moles/Vol] 106 mmol/L Normal 98-107 [facility] Comment on above: Performed By: #### C K, CKMB, REINALDO, CMP, BNP, HSTROPN #### [facility] [address] [address] [address] Veena Hernández CO2 [Moles/Vol] 32.3 mmol/L Critically high 21.0-32.0 [facility] Comment on above: Performed By: #### C K, CKMB, REINALDO, CMP, BNP, HSTROPN #### [facility] [address] [place] [address] Dr. Veena Hernández Creatinine [Mass/Vol] 0.80 mg/dL Normal 0.55-1.02 [facility] Comment on above: Performed By: #### C K, CKMB, REINALDO, CMP, BNP, HSTROPN #### [facility] [address] [address] [address] Veena Hernández EGFR-AF INDONESIAN >60 Normal >=60 [facility] Comment on above: Performed By: #### C K, CKMB, REINALDO, CMP, BNP, HSTROPN #### [facility] [address] [address] [address] Veena Hernández EGFR-NON AF INDONESIAN >60 Normal >=60 [facility] Comment on above: Performed By: #### C K, CKMB, REINALDO, CMP, BNP, HSTROPN #### [facility] [address] [place] [address] Dr. Veena Hernández Globulin (S) [Mass/Vol] 3.2 g/dL Normal [facility] Comment on above: Performed By: #### C K, CKMB, REINALDO, CMP, BNP, HSTROPN #### [facility] [address] [address] [address] Veena Hernández Glucose [Mass/Vol] 98 mg/dL Normal 74-106 [facility] Comment on above: Performed By: #### C K, CKMB, REINALDO, CMP, BNP, HSTROPN #### [facility] [address] [place] [address] Dr. Veena Hernández Potassium [Moles/Vol] 3.7 mmol/L Normal 3.5-5.1 [facility] Comment on above: Performed By: #### C K, CKMB, REINALDO, CMP, BNP, HSTROPN #### [facility] [address] [place] [address] Dr. Veena Hernández Protein [Mass/Vol] 7.2 g/dL Normal 6.4-8.2 [facility] Comment on above: Performed By: #### C K, CKMB, REINALDO, CMP, BNP, HSTROPN #### [facility] [address] [address] [address] Veena Hernández Sodium [Moles/Vol] 142 mmol/L Normal 136-145 [facility] Comment on above: Performed By: #### C K, CKMB, REINALDO, CMP, BNP, HSTROPN #### [facility] [address] [address] [address] Veena Hernández Urea nitrogen [Mass/Vol] 11.0 mg/dL Normal 7.0-18.0 [facility] Comment on above: Performed By: #### C K, CKMB, REINALDO, CMP, BNP, HSTROPN #### [facility] [address] [address] [address] Veena Hernández Urea nitrogen/Creatinine [Mass ratio] 13.8 mg/mg Normal [facility] Comment on above: Performed By: #### C K, CKMB, REINALDO, CMP, BNP, HSTROPN #### [facility] [address] [address] [address] Veena Hernández TROPONIN, HIGH SENSITIVITYon 08-01-2022 HSTROP 5.0 pg/mL Normal 4.0-51.3 [facility] Comment on above: Result Comment: CUT- OFF POINTS HAVE BEEN ESTABLISHED BASED ON THE FOURTH UNIVERSAL DEFINITIONS OF MYOCARDIAL INFARCTION. THE UPPER REFERENCE LIMIT (URL) OF TROPONIN, DEFINED THE 99TH PERCENTILE OF cTnI DISTRIBUTION IN A REFERENCE POPULATION, HAS BEEN CONFIRMED THE DECISION THRESHOLD FOR AK DIAGNOSIS. Performed By: #### C K, CKMB, REINALDO, CMP, BNP, HSTROPN #### [facility] [address] [address] [address] Veena Hernández XR CHEST 2 Von [...] by: ONUR SOLANO Date: 2022-08-01 10:19 Normal [facility] XR LSPINE 2_3 VIEWSon 2021 XR [...] by: CARLOS KEMP Date: 2022-07-12 19:26 Normal [facility] XR HIP RT INJon 04-03-2022 XR [...] by: ONUR SOLANO Date: 2022-04-03 09:18 Normal [facility] Encounters Encounter Date Encounter Type Care Provider Facility Start: 04-14-2024 End: 04-14-2024 ambulatory SHAIKH NATALIA Not Available Start: 01-06-2024 End: 01-06-2024 ambulatory SHAIKH NATALIA Not Available Start: 10-16-2023 End: 10-16-2023 ambulatory MIRZA BRITT [facility] Start: 10-16-2023 End: 10-16-2023 Clinical Support Mirza Britt [facility] Work Phone: [facility] - Audiology Comment on above: Sensorineural hearin g loss (SNHL) of both ears (Primary Dx); Tinnitus of both ears; Dizziness Dizziness and giddin ess (Primary Dx); Tinnitus of both ears Start: 09-26-2023 End: 09-27-2023 ambulatory JORGE LADD [facility] Start: 09-25-2023 End: 09-25-2023 ambulatory SHAIKH NATALIA Not Available Start: 09-03-2023 End: 09-03-2023 ambulatory Shaikh Natalia Facility:[facility] Start: 09-03-2023 End: 09-03-2023 ambulatory MD Shaikh Fisher Work Phone: [facility] Work Phone: Start: 09-03-2023 End: 09-03-2023 Patient encounter procedure MD Shaikh Fisher Work Phone: [facility] [place] Work Phone: Start: 08-12-2023 End: 08-12-2023 ambulatory SANDERS NATALIA Not Available Start: 07-31-2023 End: 07-31-2023 ambulatory LASHELL Deon CHERRI Not Available Start: 12-20-2022 End: 12-20-[address] GEOFFREY COPELAND . Facility:[facility] Start: 10-16-2022 End: 10-31-2022 ambulatory SANDERS H FAWWAD Facility:[facility] Start: 09-16-2022 End: 09-17-2022 ambulatory SANDERS H FAWWAD Facility:[facility] Start: 09-06-2022 End: 09-15-2022 ambulatory SANDERS H FAWSKYE Facility:[facility] Start: 09-04-2022 End: 09-05-[address] ONUR SOLANO Facility:[facility] Start: 08-29-2022 End: 08-30-2022 ambulatory NEIDA MEREDITH Facility:[facility] Start: 08-01-2022 End: 08-02-2022 ambulatory NEIDA MEREDITH Facility:[facility] Start: 07-12-2022 End: 07-13-2022 ambulatory SHAIKH Deon JACKSONJoseSKYE Facility:[facility] Start: 04-03-2022 End: 04-03-[address] MIRELLA GUEVARA Facility:[facility] Procedures Date Procedure Procedure Detail Performing Clinician Start: 07-11-2023 Adult depression screening assessment Mirza Britt [facility] Work Phone: Plan of Treatment Date Care Activity Detail Author Start: 07-11-2024 Adult BMI Screening Adult BMI Screen ing [facility] Start: 07-11-2024 Depression Screening Depression Scre ening [facility] Start: 07-11-2024 Fall Risk Screening Fall Risk Screen ing [facility] Start: 07-11-2024 Tobacco Screening Tobacco Screening [facility] Start: 10-28-2015 Administration of varicella zoster vaccine Zoster (Shingles) Vaccine (2 of 3) [facility] Start: 01-07-1971 DTaP,Tdap and Td Vac cines (1 - Tdap) DTaP,Tdap and Td Vaccines (1 - Tdap) [facility] Start: 01-07-1970 Adult BMI Follow Up Plan Adult BMI Follow Up Plan [facility] Start: 1950 Medicare Annual Well ness Visit Medicare Annual Wellness Visit [facility] Comprehensive hearin g test Comprehensive hearing test Audiology Routine Giddiness Ordered: 08/01/2023 [facility] Work Phone: Comment on above: Ordered: 08/01/2023 Immunizations Immunization Date Immunization Notes Care Provider Lucia basurto 09-02-2015 zoster vaccine, live Benjrand SANTIZO Work Phone: [facility] 09-02-2015 zoster vaccine, unspecified formulation Mirza SANTIZO Work Phone: [facility] 09-14-2014 influenza, injectabl e, quadrivalent, contains preservative Mirza Hillary AUD Work Phone: [facility] 07-16-2008 pneumococcal polysaccharide vaccine, 23 valent Mirza Britt AUD Work Phone: [facility] Payers Date Payer Category Payer Medicare [id number] 2023 Self-pay 1959 Unknown [id number] 1959 Unknown [id number] 1950 Unknown [id number] 1952 Unknown [id number] [id number] 1952 Unknown [id number] [id number]3 1952 Unknown [id number] 2.16.840.1.356212.3.579.2.593 1952 Unknown [id number] 2.16.840.1.013422.3.579.2.593 1952 Unknown [id number] 2.16.840.1.711751.3.579.2.593 1952 Unknown [id number] 2.16.840.1.538436.3.579.2.593 1952 Unknown [id number] 2.16.840.1.094776.3.579.2.593 1952 Unknown [id number] 2.16.840.1.778866.3.579.2.593 1952 Unknown [id number] 2.16.840.1.043857.3.579.2.128 6 1952 Unknown [id number] 2.16.840.1.271111.3.579.2.128 6 1952 Unknown [id number] 2.16.840.1.520694.3.579.2.128 6 1952 Unknown [id number] 2.16.840.1.337322.3.579.2.125 9 1952 Unknown [id number] 2.16.840.1.490089.3.579.2.125 9 1952 Unknown [id number] 2.16.840.1.687945.3.579.2.125 9 1952 Unknown [id number] 2.16.840.1.263589.3.579.2.125 9 1952 Unknown [id number] 2.16.840.1.330636.3.579.2.125 9 Medicare Medicare [id number] Unknown [id number] [id number] Unknown [employer] [id number] Effective for all dates [phone] [address] [place] [address] [id number] Social History Date Type Detail Facility [facility] Work Phone: Start: 1950 Sex Assigned At Female F [facility] Start: 06-13-2023 [facility] Start: 06-13-2023 Tobacco use and exposure Smokeless tobacco non-user [facility] Start: 10-27-2020 End: 07-11-2023 History of Social function [facility] Start: 10-27-2020 End: 07-11-2023 Tobacco use panel [facility] Adolescent depressio n screening assessment 0 [facility] Start: 1950 Sex Assigned At Not on file P [facility] History of Present illness Narrative 10-16-2023 SUKHDEV Tomlin - 10/16/2023 10:00 AM EST Note Date & Type Note Facility 10-16-2023 History of Presen t illness Narrative VNG Report Name: Kevon Campos : 1950 Date: 10/16/2023 Referring Physician: Lashell Harley MD History: Kevon Campos, a 73 y.o. female, was seen today in the [facility] [place] [facility] Department for VNG testing. She was accompanied to the appointment by her daughter who assisted with case history. Kevon reported experiencing bilateral tinnitus and episodic dizziness. Her tinnitus was described as a bilateral ringing sensation that has been present since the start of her dizziness symptoms. She labeled the tinnitus as somewhat bothersome. Her dizziness was described as a room spinning sensation that occurs in episodes and initially began in 2021. In March of both 2021 and 2022 she reported experiencing a significant episode of dizziness. This episode lasted for minutes in duration before subsiding. Following the more severe onset episodes, she reported experiencing intermittent episodes with decreasing frequency and severity of each episode over time. Her episodes can occur weeks to months apart. Between episodes she stated experiencing no lingering sensations of dizziness. She has not fallen due to her dizziness. Kevon has a history of migraines. She denied recent migraines, previous dizziness evaluations, nausea or emesis with dizziness episodes, and limb numbness with episodes. She does not have any relevant medical conditions and does not take any medications. A hearing test completed at [facility] on 10/16/23 revealed normal sloping to mild to severe sensorineural hearing loss in the right ear and normal sloping to mild to profound sensorineural hearing loss in the left ear. Other pertinent medical information include hypertension. The purpose of today's appointment is to evaluate Kevon's peripheral and central vestibular function due to concerns for dizziness. Results: Saccade: Decreased velocity was noted in the rightward direction, decrease was consistent with repeat test; normal velocity in the leftward direction as well as accuracy and latency in both directions were noted Tracking: WNL Gaze: WNL, patient was unable to complete gaze down with vision denied as her eyes consistently drifting off of target, patient was re-instructed multiple times without improvement, all other vision enabled and vision denied conditions were completed successfully Optokinetics: WNL Head Shake: negative [place]-Hallpike: Rotary nystagmus was not recorded, a lightheaded sensation was reported with sitting up from the supine position Positionals: WNL Calorics: Right Cool: 14 deg/sec Left Cool: -15 deg/sec Right Warm: -19 deg/sec Left Warm: 19 deg/sec Unilateral Weakness: 1 % to the right Bilateral Weakness: none Directional Perponderance: 1 % to the right Fixation Suppression: WNL Impressions: Essentially normal VNG. Oculomotor, positional, and caloric subtests are within normal limits. Decreased saccade velocity may be attributed to age. Lightheaded sensation experienced while transitioning from supine to sitting may be attributed to patient's diagnosis of hypertension. Recommendations: Further testing and treatment as warranted by Lashell Harley MD. If dizziness symptoms continue, evaluation by an ENT specialist may be beneficial. Referral to vestibular physical therapy may be beneficial. It was a pleasure working with Kevon and her daughter today. If there are any further questions, our office can be contacted at [phone]. Jenn Tomlin [facility] Commercial Carpet Installer documented in this encounter [facility] History of Present illness Narrative 10-16-2023 SUKHDEV Tomlin - 10/16/2023 9:15 AM EST Note Date & Type Note Facility 10-16-2023 History of Present illness Narrative Summary: Hearing Test 10/16/23 Hearing Evaluation Report Patient: Kevon Campos : 1950 Date: 10/16/2023 Referring Physician: Lashell Harley MD Case History: Kevon Campos, a 73 y.o. female, was seen today in the [facility] [place] [facility] Department for a hearing evaluation. She was accompanied to the appointment by her daughter who assisted with case history. Kevon reported experiencing bilateral tinnitus and episodic dizziness. Her tinnitus was described as a bilateral ringing sensation that has been present since the start of her dizziness symptoms. She labeled the tinnitus as somewhat bothersome. Her dizziness was described as a room spinning sensation that occurs in episodes and initially began in 2021. In March of both 2021 and 2022 she reported experiencing a significant episode of dizziness. This episode lasted for minutes in duration before subsiding. Following the more severe onset episodes, she reported experiencing intermittent episodes with decreasing frequency and severity of each episode over time. Her episodes can occur weeks to months apart. Between episodes she stated experiencing no lingering sensations of dizziness. She has not fallen due to her dizziness. Kevon has a history of migraines. She denied recent migraines, previous dizziness evaluations, nausea or emesis with dizziness episodes, and limb numbness with episodes. She does not have any relevant medical conditions and does not take any medications. Otalgia, aural fullness, recent ear infections, and previous ear surgeries were additionally denied. The purpose of today's testing is to determine Kevon's hearing sensitivity prior to vestibular testing. Diagnostic Evaluation: Otoscopy revealed visually-obstructing cerumen in the right ear and clear canal with tympanic membrane visualized in the left ear. Cerumen was manually removed from the right ear utilizing an otolight with a wire loop head. Cerumen was removed without incident. Post-cerumen removal otoscopy revealed a clear canal with visible tympanic membrane. Tympanometry was consistent with normal static admittance and peak pressure (Type A) consistent with normal middle ear function in both ears. Ipsilateral and contralateral acoustic reflex thresholds were present for all test conditions in both ears excluding 4000 Hz in the left ipsilateral and right contralateral condition. Pure tone air and bone conduction thresholds revealed normal hearing sensitivity 250-1000 Hz sloping to mild to severe 0993-9716 Hz sensorineural hearing loss in the right ear. Results for the left ear revealed normal hearing sensitivity 250-500 Hz sloping to mild to profound 1096-6549 Hz sensorineural hearing loss. Speech corporate receptionist thresholds were in fair agreement with three-frequency pure tone averages, however use of a two-frequency Nova's average consisting of 500 and 1000 Hz revealed agreement to be good bilaterally. A two-frequency average is considered to be a better representation of testing reliability for this patient. Speech discrimination ability was good bilaterally (88% right ear, 88% left ear) when presented at a comfortable sensation level. Impressions: Right ear Normal hearing sloping to mild to severe sensorineural hearing loss. Good speech discrimination. Normal middle ear function. Left ear Normal hearing sloping to mild to profound sensorineural hearing loss. Good speech discrimination. Normal middle ear function. Recommendations: Further testing and treatment as warranted by Lashell Harley MD. See [facility] note for further vestibular testing. Due to the presence of hearing loss in both ears, patient may benefit from use of binaural amplification. A hearing aid evaluation may be beneficial pending patient interest. Repeat testing if a sudden change in hearing is noted, or annually to monitor thresholds. Use good communication strategies to facilitate speech understanding. These strategies include maintaining eye contact, having access to visual cues, gaining the attention of the speaker/listener before communicating, and removing sources of background noise in the environment. Additionally, being a good self advocate in situations that are more difficult will help others become aware of said difficulties and prompt them to reciprocate the good communication strategies previously listed. Use of hearing protection during all loud activities. It was a pleasure working with Kevon today. If there are any further questions, our office can be contacted at [phone]. Jenn Tomlin CCC-A Commercial Carpet Installer documented in this encounter [facility] Clinical Note 11-10-2021 Note Date & Type Note Facility 11-10-2021 Note PROCEDURE: [facility] [employer] Sign[employer] HDXT 1.5 Sagittal T1, T2, STIR [...] signed by Michael Cristina on 11/10/2021 1522 [facility] [employer] Department Manager Evaluation note Note Date & Type Note Facility Evaluation note No assessment information [facility] Work Phone: Evaluation note Note Date & Type Note Facility Evaluation note Diagnosis Sensorineural hearing loss (SNHL) of both ears- Primary Tinnitus of both ears Unspecified tinnitus Dizziness Dizziness and giddiness documented in this encounter [facility] Evaluation note Note Date & Type Note Facility Evaluation note Diagnosis Dizziness and giddiness- Primary Tinnitus of both ears Unspecified tinnitus documented in this encounter [facility] Instructions Note Date & Type Note Facility Instructions Not on filedocumented in this en counter [facility] Instructions Note Date & Type Note Facility Instructions Not on filedocumented in this en counter [facility] Summary Purpose Family History No Family History [...] section and content) DATE CREATED AUTHOR 11/11/2021 [facility] dical Specialist DATE CREATED AUTHOR AUTHOR'S ORGANIZ ATION 12/21/2022 [facility] DATE CREATED AUTHOR AUTHOR'S ORGANIZ ATION 09/08/2023 [facility] DATE CREATED AUTHOR AUTHOR'S ORGANIZ ATION 09/29/2023 [facility] DATE CREATED AUTHOR AUTHOR'S ORGANIZ ATION 10/20/2023 [facility] DATE CREATED AUTHOR AUTHOR'S ORGANIZ ATION 04/16/2024 [facility] EPIC Care Teams (unrecognized sec tion and content) Team Status: Active Member Role Status Dates Shaikh Natalia MD Primary Care Provider Active Team Status: Inactive Member Role Status Dates Shaikh Natalia MD Primary Care Provider Active Jorge Ladd DO Attending Provider Active Motor Vehicle Dispatcher Relationship Specialty Start Date End Date Shaikh Fisher MD [address] [place] [address] PCP - General Internal Medicine 09/26/23 Motor Vehicle Dispatcher Relationship Specialty Start Date End Date Shaikh Fisher MD [address] [place] [address] PCP - General Internal Medicine 09/26/23 Goals (unrecognized section and content) Goals may be documented in a n alternate sectionNot on filedocumented as of this encounterNot on filedocumented as of this encounter Reason for Visit (unrecogniz ed section and content) Reason Comments Dizziness Tinnitus Specialty Diagnoses / Procedures Referred By Contac t Referred To Contact Diagnoses Giddiness Procedures Comprehensive hearing test Lashell Harley MD [address] [place] [address] Referral ID Status Reason Start Date Expiration Date V isits Requested Visits Authorized [id number] Pending Review 08/01/2023 07/31/2024 1 1 Reason Comments Dizziness Specialty Diagnoses / Procedures Referred By Contac t Referred To Contact Diagnoses Dizziness and giddiness Procedures VNG Lashell Harley MD [address] [place] [address] Referral ID Status Reason Start Date Expiration Date V isits Requested Visits Authorized [id number] Pending Review 08/01/2023 07/31/2024 1 1 FOR RECORDS PERTAINING TO PATIENTS WHO ARE [...] BE BASED ON THE PRIMARY CLINICAL RECORDS. [facility], [facility]. provides no warranty or guarantee of the accuracy or completeness of information in this document.
--- NOTE | 2024-06-29 16:38 | XR_ITS ---
The [address] [address] Patient Name: KEVON HASKINS MRN: [id number] date: 1950 Sex: F Assigned Patient Location: ER Current Patient Location: ED.MAIN Accession/Order Number: [id number] Exam Date: 06/29/2024 17:22 Report Date: 06/29/2024 18:23 At the request of: MEHNAZ BILLINGS Procedure: XR chest 2V CXR HISTORY: Altered mental status COMPARISON: CT chest 08/09/2023 TECHNIQUE: 2 views submitted for review. FINDINGS: The lungs are adequately expanded.. Question of a developing interstitial opacity in the right lung base. The cardiac silhouette measures within normal. Pulmonary vascularity is prominent. Osseous structures demonstrate postoperative changes of the cervical spine, incompletely imaged. XR/XR chest 2V IMPRESSION: Question of a developing interstitial opacity in the right lung base. Please correlate for pneumonia versus atelectasis. Electronically authenticated by: SWETHA MCCORMACK Date: 06/29/2024 18:23
--- NOTE | 2024-06-29 16:38 | CT_ITS ---
The [address] [address] Patient Name: KEVON HASKINS MRN: [id number] date: 1950 Sex: F Assigned Patient Location: ER Current Patient Location: Accession/Order Number: [id number] Exam Date: 06/29/2024 17:28 Report Date: 06/29/2024 18:07 At the request of: MEHNAZ BILLINGS Procedure: CT head/brain wo con EXAM: CT head/brain wo con HISTORY: Altered mental status. TECHNIQUE: Axial CT scans through the head were obtained without IV contrast administration. Dose reduction techniques were achieved by using: automated exposure control and/or adjustment of mA and/or kV according to patient size and/or use of an iterative reconstruction technique. COMPARISON: 07/21/2023. FINDINGS: Mild periventricular low attenuation in the cerebral hemispheres without associated mass effect. The brainstem and the cerebellum appear normal. The ventricular system and cortical sulci are prominent, secondary to cerebral volume loss. No area of abnormal mass effect, edema, or intracranial hemorrhage is shown. The visualized orbits show no abnormal mass. The visualized paranasal sinuses show no air-fluid level. Mastoid air cells are clear. CT/CT head/brain wo con IMPRESSION: 1. Mild old microvascular ischemic change and age-related cerebral atrophy. 2. No acute intracranial process. Electronically authenticated by: MIGDALIA DAMON Date: 06/29/2024 18:07
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
[2024-06-29 17:05] LABS: Basophils Percent Auto 0.6 % (0.2-2.0); Eosinophils Absolute Auto 0.1 10^3/uL (0.0-0.7); Eosinophils Percent Auto 1.5 % (0.9-7.0); Hematocrit 37.3 % (36.0-48.0); Hemoglobin 12.2 g/dL (12.0-16.0); Immature Granulocytes Abs Auto 0.01 10^3/uL (0.00-0.03); Immature Granulocytes Pct Auto 0.2 % (0.0-0.5); Lymphocytes Absolute Auto 1.3 10^3/uL (1.2-3.8); Lymphocytes Percent Auto 24.2 % (20.5-60.0); Mean Corpuscular HGB Conc 32.7 g/dL (29.9-35.2); Mean Corpuscular Hemoglobin 31.9 pg (26.7-34.0); Mean Corpuscular Volume 97.4 fL (81.0-99.0); Mean Platelet Volume 9.8 fL (9.5-13.5); Monocytes Absolute Auto 0.4 10^3/uL (0.3-0.8); Monocytes Percent Auto 8.1 % (1.7-12.0); Neutrophils Absolute Auto 3.4 10^3/uL (1.4-6.5); Neutrophils Percent Auto 65.4 % (43.0-75.0); Platelet Count 258 10^3/uL (150-450); Red Blood Count 3.83 10^6/uL (4.20-5.40); Red Cell Distribution Width 13.3 % (11.0-15.0); White Blood Count 5.2 10^3/uL (4.0-11.0)
[2024-06-29 17:11] LABS: Bilirubin Urine NEGATIVE (NEGATIVE); Blood Urine TRACE-I (NEGATIVE); Clarity Urine CLEAR (CLEAR); Color Urine LT. YELLOW (YELLOW); Glucose Urine UA NEGATIVE (NEGATIVE); Ketones Urine NEGATIVE (NEGATIVE); Leukocyte Esterase Urine NEGATIVE (NEGATIVE); Nitrite Urine NEGATIVE (NEGATIVE); Protein Urine NEGATIVE (NEG/TRACE); Specific Gravity Urine 1.015 (1.005-1.025); Urobilinogen Urine 0.2 EU/dL (0.2-1.0)
[2024-06-29 17:12] LABS: Urine Microscopic Indicated YES
[2024-06-29 17:26] LABS: Amphetamine Screen Urine NEGATIVE (NEGATIVE); Bacteria Urine NONE SEEN #/HPF (NONE SEEN); Barbiturates Screen Urine NEGATIVE (NEGATIVE); Benzodiazepines Screen Urine NEGATIVE (NEGATIVE); Buprenorphine Screen Urine NEGATIVE (NEGATIVE); Cannabinoid Screen Urine NEGATIVE (NEGATIVE); Cocaine Screen Urine NEGATIVE (NEGATIVE); Methadone Screen Urine NEGATIVE (NEGATIVE); Methamphetamines Screen Urine NEGATIVE (NEGATIVE); Opiate Screen Urine NEGATIVE (NEGATIVE); Oxycodone Screen Urine NEGATIVE (NEGATIVE); Phencyclidine Screen Urine NEGATIVE (NEGATIVE); RBC Urine 0-2 #/HPF (0-2); Tricyclic Antidepressant Urine NEGATIVE (NEGATIVE); WBC Urine 0-2 #/HPF (NONE SEEN)
[2024-06-29 17:27] LABS: Cast Seen? NONE SEEN #/LPF (NONE SEEN); Crystals Seen? None Seen #/HPF (None Seen); Mucus Urine NONE SEEN (NONE SEEN); Squamous Epithelial Cell Urine RARE #/LPF (NONE/RARE); Urine Culture Indicated NO
[2024-06-29 17:28] LABS: Ammonia <10 umol/L (11-32)
[2024-06-29 17:29] LABS: Alanine Aminotransferase 15 U/L (14-59); Albumin Globulin Ratio 1.2; Albumin Level 3.9 g/dL (3.4-5.0); Alkaline Phosphatase 87 U/L (46-116); Aspartate Amino Transferase 18 U/L (15-37); BUN Creatinine Ratio 10.4; Calcium 9.7 mg/dL (8.5-10.1); Carbon Dioxide 26.1 mmol/L (21.0-32.0); Chloride 109 mmol/L (98-107); Estimated GFR (African America >60 (>=60 mL/min/1.73m^2); Estimated GFR (Non-African Ame 51 (>=60 mL/min/1.73m^2); Globulin 3.3 g/dL; Glucose 86 mg/dL (74-106); Potassium 4.1 mmol/L (3.5-5.1); Sodium 145 mmol/L (136-145); Total Protein 7.2 g/dL (6.4-8.2)
[2024-06-29 19:19] LABS: Internal Control Within Normal Limits; SARS-CoV-2 Ag NEGATIVE (NEGATIVE)
[2024-06-30 04:30] VITALS: BP 128/72; PULSE 77; TEMP 36.5; O2SAT 99
[2024-06-30] MEDS: ACETAMINOPHEN 325 MG TABLET 650 MG PO (04:45)
--- NOTE | 2024-06-30 09:10 | ED.GENADUL1 ---
HPI HPI - General Adult General Chief complaint: Altered Mental Status Stated complaint: CONFUSION Time Seen by Provider: 06/29/24 16:32 Mode of arrival: walk-in Limitations: no limitations History of Present Illness HPI narrative: The patient was initially seen by Dr. Alcala and then held here in the emergency department pending transfer. The patient has been accepted at [facility]. Related Data Home Medications ?Medication ?Instructions ?Recorded ?Confirmed atorvastatin 20 mg tablet 20 mg PO DAILY 06/30/24 06/30/24 losartan 50 mg tablet 50 mg PO DAILY 06/30/24 06/30/24 quetiapine 25 mg tablet 25 mg PO BEDTIME 06/30/24 06/30/24 Allergies Allergy/AdvReac Type Severity Reaction Status Date / Time No Known Drug Allergies Allergy Verified 07/12/23 18:52 Opioid HPI Opioid Management Most Recent Opioid Data: Last Pain Scale 6 06/30/24 04:48 06/30/24 Last ED Pain Assessment 06/30/24 06:20 Ur Phencyclidine Scrn Negative (NEGATIVE) 06/29/24 16:35 06/29/24 PFSH PFSH Social History Little interest or pleasure in doing things: not at all Feeling down, depressed, or hopeless: not at all Exam Constitutional Vital Signs, click to edit/add: Last Vital Signs Temp 97.7 F 06/30/24 04:30 Pulse 77 06/30/24 04:30 Resp 16 06/30/24 04:30 BP 128/72 06/30/24 04:30 Pulse Ox 99 06/30/24 04:30 O2 Del Method Room Air 06/30/24 04:30 Course Vital Signs Vital signs: Vital Signs Temperature 97.9 F 06/29/24 16:27 Pulse Rate 80 06/29/24 16:27 Respiratory Rate 18 06/29/24 16:27 Blood Pressure 144/76 H 06/29/24 16:27 Pulse Oximetry 96 06/29/24 16:27 Oxygen Delivery Method Room Air 06/29/24 16:27 Temperature 97.7 F 06/30/24 04:30 Pulse Rate 77 06/30/24 04:30 Respiratory Rate 16 06/30/24 04:30 Blood Pressure 128/72 06/30/24 04:30 Pulse Oximetry 99 06/30/24 04:30 Oxygen Delivery Method Room Air 06/30/24 04:30 Medical Decision Making MDM Narrative Medical decision making narrative: The patient has had an uncomplicated emergency department stay and is being transferred. Lab Data Lab results reviewed: Yes I reviewed the patient's lab results Labs: Lab Results 06/29/24 06/29/24 06/29/24 Range/Units 16:35 16:59 19:03 WBC 5.2 (4.0-11.0) 10^3/uL RBC 3.83 L (4.20-5.40) 10^6/uL Hgb 12.2 (12.0-16.0) g/dL Hct 37.3 (36.0-48.0) % MCV 97.4 (81.0-99.0) fL MCH 31.9 (26.7-34.0) pg MCHC 32.7 (29.9-35.2) g/dL RDW 13.3 (11.0-15.0) % Plt Count 258 (150-450) 10^3/uL MPV 9.8 (9.5-13.5) fL Neut % (Auto) 65.4 (43.0-75.0) % Lymph % (Auto) 24.2 (20.5-60.0) % [place] % (Auto) 8.1 (1.7-12.0) % Eos % (Auto) 1.5 (0.9-7.0) % Baso % (Auto) 0.6 (0.2-2.0) % Neut # (Auto) 3.4 (1.4-6.5) 10^3/uL Lymph # (Auto) 1.3 (1.2-3.8) 10^3/uL [place] # (Auto) 0.4 (0.3-0.8) 10^3/uL Eos # (Auto) 0.1 (0.0-0.7) 10^3/uL Baso # (Auto) 0.0 (0.0-0.1) 10^3/uL Abs Immat Gran (auto) 0.01 (0.00-0.03) 10^3/uL Imm/Tot Granulo (auto) 0.2 (0.0-0.5) % Sodium 145 (136-145) mmol/L Potassium 4.1 (3.5-5.1) mmol/L Chloride 109 H (98-107) mmol/L Carbon Dioxide 26.1 (21.0-32.0) mmol/L Anion Gap 14.0 BUN 11.0 (7.0-18.0) mg/dL Creatinine 1.06 H (0.55-1.02) mg/dL Est GFR ( Amer) >60 (>=60 mL/min/1.73m^2) Est GFR (Non-Af Amer) 51 L (>=60 mL/min/1.73m^2) BUN/Creatinine Ratio 10.4 Glucose 86 (74-106) mg/dL Calcium 9.7 (8.5-10.1) mg/dL Total Bilirubin 1.0 (0.2-1.0) mg/dL AST 18 (15-37) U/L ALT 15 (14-59) U/L Alkaline Phosphatase 87 (46-116) U/L Ammonia <10 L (11-32) umol/L Total Protein 7.2 (6.4-8.2) g/dL Albumin 3.9 (3.4-5.0) g/dL Globulin 3.3 g/dL Albumin/Globulin Ratio 1.2 Urine Color Lt. yellow (YELLOW) Urine Clarity Clear (CLEAR) Urine pH 6.0 (5.0-9.0) Ur Specific [place] 1.015 (1.005-1.025) Urine Protein Negative (NEG/TRACE) mg/dL Urine Glucose (UA) Negative (NEGATIVE) mg/dL Urine Ketones Negative (NEGATIVE) mg/dL Urine Occult Blood Trace-i (NEGATIVE) Urine Nitrite Negative (NEGATIVE) Urine Bilirubin Negative (NEGATIVE) Urine Urobilinogen 0.2 (0.2-1.0) EU/dL Ur Leukocyte Esterase Negative (NEGATIVE) Urine RBC 0-2 (0-2) #/HPF Urine WBC 0-2 A (NONE SEEN) #/HPF Ur Squamous Epith Cells Rare (NONE/RARE) #/LPF Urine Crystals None seen (None Seen) #/HPF Urine Bacteria None seen (NONE SEEN) #/HPF Urine Casts None seen (NONE SEEN) #/LPF Urine Mucus None seen (NONE SEEN) Ur Culture Indicated? No Urine Opiates Screen Negative (NEGATIVE) Ur Buprenorphine Scrn Negative (NEGATIVE) Ur Oxycodone Screen Negative (NEGATIVE) Urine Methadone Screen Negative (NEGATIVE) Ur Barbiturates Screen Negative (NEGATIVE) U Tricyclic Antidepress Negative (NEGATIVE) Ur Phencyclidine Scrn Negative (NEGATIVE) Ur Amphetamines Screen Negative (NEGATIVE) U Methamphetamines Scrn Negative (NEGATIVE) U Benzodiazepines Scrn Negative (NEGATIVE) Urine Cocaine Screen Negative (NEGATIVE) U Cannabinoids Screen Negative (NEGATIVE) SARS-CoV-2 Ag (CV2AG) Negative (NEGATIVE) Discharge Plan Discharge Chief Complaint: Altered Mental Status Clinical Impression: Psychosis Patient Disposition: [facility] Time of Disposition Decision: 09:09 Discharge location: [facility] Condition: [facility] Mode of Transportation: EMS
== END 2024-06-30 10:03 ==
PROVIDERS: Nurse Practitioner Family; Emergency Provider Emergency Medicine; PCP Internal Medicine
DX: F29 Unspecified psychosis not due to a substance or known physiological condition (principal); Z20.822 Contact with and (suspected) exposure to COVID-19
CPT/HCPCS: 36415; 70450; 71046; 80053; 80307; 81001; 82140; 85025; 87811; 99285

== ENCOUNTER 2024-10-02 08:06 | Emergency (ER) | payer OTHER, SELFPAY ==
[2024-10-02 08:09] VITALS: BP 159/84; PULSE 97; TEMP 37.1; O2SAT 98; BMI 26.5
--- OUTSIDE RECORDS SUMMARY | 2024-10-02 08:17 | XMS_ITS | CCD ---
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 Name Role Phone DR ONUR SOLANO Consulting Unavailable FAWWAD, SANDERS H Attending Unavailable FAWWAD, SANDERS H Primary Care Unavailable FAWWAD, SANDERS H Admitting Unavailable FAWWAD, SANDERS H Consulting Unavailable FAWWAD, SANDERS H Attending Unavailable DR CARLOS KEMP V Consulting Unavailable FAWWAD, SANDERS H Primary Care Unavailable FAWWAD, SANDERS H Admitting Unavailable FAWWAD, SANDERS H Consulting Unavailable AICHHOLZ, SERVICE CENTER TECHNICIAN FAMILIA Consulting Unavailable AICHHOLZ, SERVICE CENTER TECHNICIAN [place]ILIA Admitting Unavailable AICHHOLZ, SERVICE CENTER TECHNICIAN FAMILIA Attending Unavailable FAWWAD, SANDERS H Primary Care Unavailable DR ONUR SOLANO Consulting Unavailable FAWWAD, SANDERS [...] Care Unavailable ISMAEL, DR VU Consulting Unavailable MARLENANIC, DR VU Admitting Unavailable STEPANIC, DR VU Attending Unavailable FAWWAD, SANDERS H Primary Care Unavailable DR ONUR SOLANO Consulting Unavailable AICHHOLZ, SERVICE CENTER TECHNICIAN FAMILIA Consulting Unavailable AICHHOLZ, SERVICE CENTER TECHNICIAN [place]ILIA Admitting Unavailable AICHHOLZ, SERVICE CENTER TECHNICIAN FAMILIA Attending Unavailable FAWWAD, SANDERS H Primary Care Unavailable DR ONUR SOLANO Consulting Unavailable MD Chad Fisher Primary Care Provider DO Jorge Ladd Attending Provider [phone] Fadick, Primary Care Unavailable Jorge Ladd Attending Unavailable Jorge Ladd Admitting Unavailable Shaikh Fisher MD Primary Care Provider [phone] MIRZA BRITT Attending Unavailable PUMA ROCHA Referring Unavailable FADICK, Primary Care Unavailable MIRZA BRITT Attending Unavailable PUMA ROCHA Referring Unavailable ELDER, Primary Care Unavailable LASHELL HARLEY Attending Unavailable ELDER, Attending Unavailable ELDER, Attending Unavailable ELDER, Attending Unavailable ELDER, Attending Unavailable DOREEN, AISLINN S Referring Unavailable HOY, QI M Primary Care Unavailable DOREEN AISLINN S Referring Unavailable HOY, QI M Primary Care Unavailable DOREEN, AISLINN S Referring Unavailable HOWinsome, QI M Primary Care Unavailable JORGE LADD Attending Unavailable JORGE LADD Referring Unavailable ELDER, Primary Care Unavailable Shaikh Fisher MD Unavailable Navneet Vanegas MD Primary Care Provider Yolie SUPERVISOR AIR CONDITIONING INSTALLER, Duyen Unavailable [phone] Allergies Allergy Classification Reported Allergen(s) Allergy Type Date of Onset Reaction(s) Facility (1 source) Acetaminophen / oxyCODONE Drug Allergy 02-08-20 13 [facility] (1 source) Morphine Drug Allergy 02-08-20 13 [facility] (6 sources) Acetaminophen / oxyCODONE; Translations: [OXYCODONE-ACETAM INOPHEN] Drug Allergy 02-24-20 14 [facility] Adhesive agent; Translations: [ADHESIVE] Propensity to adverse reactions to drug 04-14-20 14 Other (See Comments) [facility] Work Phone: (2 sources) Morphine Drug Allergy 06-27-20 23 Itching [facility] Work Phone: (2 sources) Wound Dressing Adhesive Drug Intolerance 04-14-20 14 [facility] Medications Current Medications Medication Drug Class(es) Dates Sig (Normalized) Sig (Original) [id number] 200 actuat albuterol 0.09 mg/actuat metered dose inhaler (4 sources) beta2-Adrenergic Agonist Start: 02-12-2024 take 2 puff(s) by mouth every six hours as needed albuterol HFA 90 mcg/act inhaler Indications: Mild intermittent asthma with status asthmaticus (CMS/HCC) INHALE 2 PUFFS BY MOUTH EVERY 6 HOURS NEEDED FOR SHORTNESS OF BREATH 9 g 02/12/2024 Active take 2 puff(s) by in halation every six hours as needed for wheezing albuterol (PROVENTIL HFA;VENTOLIN HFA) 9 0 mcg/actuation inhaler Inhale 2 puffs every 6 (six) hours as needed for wheezing. 0 Active atorvastatin 20 mg oral tablet (2 sources) HMG-CoA Reductase Inhibitor Start: 04-14-2024 End: 07-13-2024 take 1 tablet by mouth once daily atorvastatin (Lipitor) 20 MG tablet Indications: Dyslipidemia (CMS/HCC) Take 1 tablet (20 mg) by mouth Daily 90 tablet 04/14/2024 Active losartan potassium 50 mg oral tablet (3 sources) Angiotensin 2 Receptor Shari Start: 04-14-2024 End: 09-13-2024 take 1 tablet by mouth once daily losartan (Cozaar) 50 MG tablet Indications: Hypertension Take 1 tablet (50 mg) by mouth Daily 90 tablet 06/15/2024 Active mirtazapine 7.5 mg oral tablet (2 sources) Start: 09-29-2024 take 1 tablet by mouth at bedtime mirtazapine (Remeron) 7.5 MG tablet Indications: 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) Take 1 tablet (7.5 mg) by mouth at bedtime 90 tablet 09/29/2024 Active Start: 09-02-2024 End: 09-29-2024 take 1 tablet by mouth at bedtime mirtazapine (Remeron) 7.5 MG tablet Take 7.5 mg by mouth at bedtime 09/02/2024 09/29/2024 Discontinued (Reorder) QUEtiapine 25 mg oral tablet (2 sources) Atypical Antipsychotic Start: 04-14-2024 End: 07-13-2024 take 1 tablet by mouth at bedtime QUEtiapine (SEROquel) 25 MG tablet Indications: 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) Take 1 tablet (25 mg) by mouth at bedtime 90 tablet 04/14/2024 Active risperiDONE 0.5 mg oral tablet (1 source) Atypical Antipsychotic Start: 08-05-2024 take 1 tablet by mouth in the morning risperiDONE (RisperDAL) 0.5 MG tablet Take 0.5 mg by mouth in the morning and 0.5 mg before bedtime. 08/05/2024 Active vitamin b12 1 mg oral tablet (2 sources) Vitamin B12 Start: 07-11-2023 take 1 tablet by mouth in the morning cyanocobalamin (vitamin B-12) 1000 MCG tablet Indications: B12 deficiency Take 1 tablet (1,000 mcg total) by mouth in the morning. 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; Translations: [Alzheimer's disease with early onset] Onset: 4 09-26-2023 Chronic Disorders of lipid metabolism (3 sources) Hyperlipidemia, unspecified; Translations: [Dyslipidemia] Onset: 2 08-12-2023 Chronic Essential hypertension (7 sources) Essential (primary) hypertension; Translations: [Hypertensive disorder] Onset: 4 06-13-2023 Chronic Fever of unknown origin (2 sources) Fever, unspecified; Translations: [FEVER UNSPECIFIED] Onset: 3 Episodic Mood disorders (2 sources) Depressive disorder; Translations: [Depression] Onset: 3 06-27-2023 Chronic Nausea and vomiting (4 sources) Nausea with vomiting, unspecified; Translations: [NAUSEA WITH VOMITING UNSPECIFIED] Onset: 3 Episodic Osteoarthritis (8 sources) Unilateral primary osteoarthritis, right hip; Translations: [Arthritis of left acromioclavicular joint] Onset: 2 Chronic Other aftercare (1 source) buttermaker (current) use of aspirin; Translations: [SENIOR LIVING CURRENT USE OF ASPIRIN] Onset: 3 Episodic Other ear and sense organ disorders (1 source) Sensorineural hearing loss, bilateral; Translations: [Sensorineural hearing loss, bilateral] 10-16-2023 Chronic Other ear and sense organ disorders (2 sources) Bilateral tinnitus; Translations: [Tinnitus, bilateral] 10-16-2023 Episodic Other gastrointestinal disorders (1 source) Diarrhea, unspecified; Translations: [DIARRHEA UNSPECIFIED] Onset: 3 Episodic Other hereditary and degenerative nervous system conditions (3 sources) Mild cognitive impairment, so stated; Translations: [Mild cognitive impairment, so stated] Onset: 3 06-27-2023 Chronic Spondylosis; intervertebral disc disorders; other back problems (2 sources) Other cervical disc degeneration, high cervical region; Translations: [Other intervertebral disc degeneration, lumbar region] Onset: 2 Chronic Thyroid disorders (2 sources) Hypothyroidism; Translations: [Hypothyroidism, unspecified] Onset: 3 06-27-2023 Chronic Unclassified (1 source) CONTACT W/AND (SUSP) EXPOS COVID-19; Translations: [CONTACT W/AND (SUSP) EXPOS COVID-19] Onset: 3 Unclassified (1 source) Mild cognitive impairment of uncertain or unknown etiology; Translations: [Mild cognitive impairment of uncertain or unknown etiology] Onset: 3 Past or Other Problems Problem Classification Problem Date Documented Da te Episodic/Chronic Conditions associated with dizziness or vertigo (7 sources) Dizziness; Translations: [Dizziness and giddiness] Onset: 06-13-2023 Resolved: 06-13-2023 10-16-2023 Episodic Heart valve disorders (3 sources) Cardiac murmur, unspecified; Translations: [Heart murmur] Onset: 09-02-2022 06-27-2023 Episodic Mood disorders (4 sources) Mood disorders Onset: 07-11-2023 Resolved: 01-06-2024 07-11-2023 Nonspecific chest pain (4 sources) Chest pain, unspecified; Translations: [CHEST PAIN UNSPECIFIED] Onset: 08-29-2022 Episodic Nutritional deficiencies (4 sources) Cobalamin deficiency; Translations: [Deficiency of other specified B group vitamins] Onset: 07-11-2023 07-11-2023 Episodic Other circulatory disease (2 sources) Low blood pressure; Translations: [Hypotension, unspecified] Onset: 05-15-2014 06-27-2023 Episodic Other injuries and conditions due to external causes (4 sources) History of falling; Translations: [HISTORY OF FALLING] Onset: 07-12-2022 Episodic Other lower respiratory disease (1 source) Shortness of breath; Translations: [SHORTNESS OF BREATH] Onset: 09-02-2022 Episodic Other non-traumatic joint disorders (2 sources) Pain in left shoulder; Translations: [Pain in joint, shoulder region] Onset: 06-27-2023 06-27-2023 Episodic Other nutritional; endocrine; and metabolic disorders (4 sources) Overweight; Translations: [OVERWEIGHT] Onset: 09-04-2022 Episodic Other screening for suspected conditions (not mental disorders or infectious disease) (2 sources) Patient encounter status; Translations: [Encounter for screening mammogram for malignant neoplasm of breast] Onset: 08-12-2023 08-12-2023 Episodic Residual codes; unclassified (1 source) Family history of ischemic heart disease and other diseases of the circulatory system; Translations: [FAM HX ISCHEMIC HRT DZ OTH DZ CIRC] Onset: 09-02-2022 Episodic Residual codes; unclassified (2 sources) Confusional state; Translations: [Disorientation, unspecified] Onset: 07-31-2023 07-31-2023 Episodic Spondylosis; intervertebral disc disorders; other back problems (1 source) Cervicalgia; Translations: [CERVICALGIA] Onset: 09-12-2022 Episodic Results Test Name Value Interpretation Reference Range Facility URINALYSISon 08-08-2024 Amorphous sediment LM Ql (Urine sed) PRESENT Abnormal NONE [facility] Comment on above: Performed By: #### C BCA, HA1C, CMP, 04520-0, THYR, 3051-0 #### [facility] ([id number]) [address], [address] [place] [address] Bilirubin Ql (U) Negative Normal NEG [facility] Comment on above: Performed By: #### C BCA, HA1C, CMP, 20816-1, THYR, 3051-0 #### [facility] ([id number]) [address], [address] [place] [address] BLOOD/HGB Negative Normal NEG [facility] Comment on above: Performed By: #### C BCA, HA1C, CMP, 22481-0, THYR, 3051-0 #### [facility] ([id number]) [address], [address] [place] [address] Color (U) YELLOW Normal YELLOW [facility] Comment on above: Performed By: #### C BCA, HA1C, CMP, 76543-1, THYR, 3051-0 #### [facility] ([id number]) [address], [address] [place] [address] Glucose Ql (U) Negative Normal NEG [facility] Comment on above: Performed By: #### C BCA, HA1C, CMP, 39671-2, THYR, 3051-0 #### [facility] ([id number]) [address], [address] [place] [address] Ketones Ql (U) Trace Abnormal NEG [facility] Comment on above: Performed By: #### C BCA, HA1C, CMP, 83007-9, THYR, 3051-0 #### [facility] ([id number]) [address], [address] [place] [address] Leukocyte esterase Test strip Ql (U) Negative Normal NEG [facility] Comment on above: Performed By: #### C BCA, HA1C, CMP, 23763-6, THYR, 3051-0 #### [facility] ([id number]) [address] [address] [place] [address] Nitrite Ql (U) Negative Normal NEG [facility] Comment on above: Performed By: #### C BCA, HA1C, CMP, 92219-0, THYR, 3051-0 #### [facility] ([id number]) [address] [address] [place] [address] pH (U) 6.0 [pH] Normal 5.0-8.5 [facility] Comment on above: Performed By: #### C BCA, HA1C, CMP, 92358-9, THYR, 3051-0 #### [facility] ([id number]) [address] [address] [place] [address] Protein Ql (U) 30 mg/dL Abnormal NEG [facility] Comment on above: Performed By: #### C BCA, HA1C, CMP, 80351-3, THYR, 3051-0 #### [facility] ([id number]) [address] [address] [place] [address] R.B.CELLS 0 /hpf Normal 0-5 [facility] Comment on above: Performed By: #### C BCA, HA1C, CMP, 37499-1, THYR, 3051-0 #### [facility] ([id number]) [address] [address] [place] [address] Specific gravity (U) [Rel density] 1.020 Normal 1.003-1.035 [facility] Comment on above: Performed By: #### C BCA, HA1C, CMP, 41668-0, THYR, 3051-0 #### [facility] ([id number]) [address] [address] [place] [address] TURBIDITY HAZY Abnormal CLEAR [facility] Comment on above: Performed By: #### C BCA, HA1C, CMP, 41512-5, THYR, 3051-0 #### [facility] ([id number]) [address] [address] [place] [address] URIC ACID CRYSTALS PRESENT Abnormal NONE [facility] Comment on above: Performed By: #### C BCA, HA1C, CMP, 07439-4, THYR, 3051-0 #### [facility] ([id number]) [address] [address] Urobilinogen Qn (U) 0.2 {Quan'U}/dL Normal <1.1 [facility] Comment on above: Performed By: #### C BCA, HA1C, CMP, 85142-2, THYR, 3051-0 #### [facility] ([id number]) [address] [address] W.B.CELLS 20 /hpf High 0-5 [facility] Comment on above: Performed By: #### C BCA, HA1C, CMP, 29966-3, THYR, 305-0 #### [facility] ([id number]) [address] [address] WBC CASTS 1 /lpf High 0 [facility] Comment on above: Performed By: #### C BCA, HA1C, CMP, 84197-3, THYR, 3051-0 #### [facility] ([id number]) [address] [address] URINE CULTUREon 08-08-2024 Bacteria identified Cx Nom (U) CULTURE RESULTS <10,000 ORGANISMS/ML NORMAL URO GENITAL DELMY Normal [facility] Comment on above: Performed By: #### C BCA, HA1C, CMP, 26274-8, THYR, 3051-0 #### [facility] ([id number]) [address] [address] CBC AND AUTO DIFFon 08-05-20 24 Band form neutrophils/100 WBC (Bld) 38.0 % Normal [facility] Comment on above: Performed By: #### C DARINEL, CBCA #### [facility] ([id number]) [address] [place] [address] Erythrocyte distribution width (RBC) [Ratio] 13.6 % Normal 11.5-15.0 [facility] Comment on above: Performed By: #### C MP, CBCA #### [facility] ([id number]) [address], [address] [place] [address] Hematocrit (Bld) [Volume fraction] 37.6 % Normal 35-47 [facility] Comment on above: Performed By: #### C DARINEL, CBCA #### [facility] ([id number]) [address] [address] [place] [address] Hemoglobin (Bld) [Mass/Vol] 13.2 g/dL Normal 11.7-15.5 [facility] Comment on above: Performed By: #### C DARINEL, CBCA #### [facility] ([id number]) [address], [address] [place] [address] Lymphocytes (Bld) [#/Vol] 0.5 10*3/uL Low 1.0-3.5 [facility] Comment on above: Performed By: #### C DARINEL, CBCA #### [facility] ([id number]) [address], [address] [place] [address] Lymphocytes/100 WBC (Bld) 10.0 % Normal [facility] Comment on above: Performed By: #### C DARINEL, CBCA #### [facility] ([id number]) [address] [address] [place] [address] MCH (RBC) [Entitic mass] 32.8 pg Normal 27-34 [facility] Comment on above: Performed By: #### C DARINEL, CBCA #### [facility] ([id number]) [address] [address] [place] [address] MCHC (RBC) [Mass/Vol] 35.1 g/dL Normal 32-36 [facility] Comment on above: Performed By: #### C MP, CBCA #### [facility] ([id number]) [address] [address] [place] [address] MCV (RBC) [Entitic vol] 94 fL Normal 80-100 [facility] Comment on above: Performed By: #### C MP, CBCA #### [facility] ([id number]) [address] [address] [place] [address] Metamyelocytes/100 WBC (Bld) 2.0 % Normal [facility] Comment on above: Performed By: #### C MP, CBCA #### [facility] ([id number]) [address] [address] [place] [address] Monocytes (Bld) [#/Vol] 0.6 10*3/uL Normal 0-0.9 [facility] Comment on above: Performed By: #### C MP, CBCA #### [facility] ([id number]) [address] [address] [place] [address] Monocytes/100 WBC (Bld) 11.0 % Normal [facility] Comment on above: Performed By: #### C MP, CBCA #### [facility] ([id number]) [address] [address] [place] [address] NEUTROPHIL VACUOLES 1+ Abnormal NONE [facility] Comment on above: Performed By: #### C MP, CBCA #### [facility] ([id number]) [address] [address] [place] [address] Neutrophils (Bld) [#/Vol] 4.1 10*3/uL Normal 1.5-6.6 [facility] Comment on above: Performed By: #### C MP, CBCA #### [facility] ([id number]) [address], [address] [place] [address] Platelet mean volume (Bld) [Entitic vol] 9.8 fL Normal 7-12 [facility] Comment on above: Performed By: #### C MP, CBCA #### [facility] ([id number]) [address] [place] [address] Platelets (Bld) [#/Vol] 170 10*3/uL Normal 150-450 [facility] Comment on above: Performed By: #### C MP, CBCA #### [facility] ([id number]) [address] [place] [address] RBC COUNT 4.01 X10E12/L Normal 3.80-5.20 [facility] Comment on above: Performed By: #### C MP, CBCA #### [facility] ([id number]) [address] [place] [address] SEG NEUTROPHIL 39.0 % Normal [facility] Comment on above: Performed By: #### C MP, CBCA #### [facility] ([id number]) [address] [address] [place] [address] WBC (Bld) [#/Vol] 5.3 10*3/uL Normal 4.0-11.0 [facility] Comment on above: Performed By: #### C MP, CBCA #### [facility] ([id number]) [address] [place] [address] COMPREHENSIVE METABOLIC PANE Abhishek 08-05-2024 Albumin [Mass/Vol] 3.9 g/dL Normal 3.2-5.3 [facility] Comment on above: Performed By: #### C MP, CBCA #### [facility] ([id number]) [address] [place] [address] ALP [Catalytic activity/Vol] 61 U/L Normal 39-130 [facility] Comment on above: Performed By: #### C DARINEL CBCA #### [facility] ([id number]) [address] [place] [address] ALT [Catalytic activity/Vol] 23 U/L Normal 0-31 [facility] Comment on above: Performed By: #### C DARINEL CBCA #### [facility] ([id number]) [address] [place] [address] Anion gap [Moles/Vol] 13 mmol/L Normal 5-15 [facility] Comment on above: Performed By: #### C DARINEL CBCA #### [facility] ([id number]) [address] [place] [address] AST [Catalytic activity/Vol] 46 U/L High 0-41 [facility] Comment on above: Performed By: #### C DARINEL CBCA #### [facility] ([id number]) [address] [place] [address] Bilirubin [Mass/Vol] 1.1 mg/dL Normal 0.3-1.2 [facility] Comment on above: Performed By: #### C DARINEL CBCA #### [facility] ([id number]) [address] [place] [address] Calcium [Mass/Vol] 9.1 mg/dL Normal 8.5-10.5 [facility] Comment on above: Performed By: #### C DARINEL CBCA #### [facility] ([id number]) [address] [place] [address] Chloride [Moles/Vol] 99 mmol/L Normal 98-109 [facility] Comment on above: Performed By: #### C DARINEL CBCA #### [facility] ([id number]) [address] [place] [address] CO2 [Moles/Vol] 21 mmol/L Low 22-32 [facility] Comment on above: Performed By: #### C PORSCHE TENA #### [facility] ([id number]) [address] [place] [address] Creatinine [Mass/Vol] 1.29 mg/dL High 0.40-1.00 [facility] Comment on above: Result Comment: METH OD TRACEABLE TO IDMS STANDARD Performed By: #### C PORSCHE TENA #### [facility] ([id number]) [address] [place] [address] GFR/1.73 sq M.predicted among non-blacks MDRD (S/P/Bld) [Vol rate/Area] 44 mL/min/{1.73_m2} Low >59 [facility] Comment on above: Result Comment: Reported eGFR is based on the CKD-EPI 2020 equation that does not use a race coefficient. Performed By: #### PORSCHE Raman MP #### [facility] ([id number]) [address] [address] [place] [address] Glucose [Mass/Vol] 175 mg/dL High 65-99 [facility] Comment on above: Performed By: #### PORSCHE Raman MP #### [facility] ([id number]) [address] [address] [place] [address] Potassium [Moles/Vol] 3.3 mmol/L Low 3.5-5.0 [facility] Comment on above: Performed By: #### PORSCHE Raman MP #### [facility] ([id number]) [address] [place] [address] Protein [Mass/Vol] 7.0 g/dL Normal 6.0-8.0 [facility] Comment on above: Performed By: #### PORSCHE Raman MP #### [facility] ([id number]) [address] [address] [place] [address] Sodium [Moles/Vol] 133 mmol/L Low 134-146 [facility] Comment on above: Performed By: #### C MP, CBCA #### [facility] ([id number]) [address] [address] [place] [address] Urea nitrogen [Mass/Vol] 20 mg/dL Normal 5-27 [facility] Comment on above: Performed By: #### C MP, CBCA #### [facility] ([id number]) [address] [address] [place] [address] CBC AND AUTO DIFFon 07-23-20 24 ABSOLUTE BASOPHIL 0.0 X10E9/L Normal 0.0-0.2 [facility] Comment on above: Performed By: #### C BCA, HA1C, CMP, 28842-3, THYR, 3051-0 #### [facility] ([id number]) [address] [address] [place] [address] ABSOLUTE NEUTROPHIL 2.4 X10E9/L Normal 1.5-6.6 [facility] Comment on above: Performed By: #### C BCA, HA1C, CMP, 09704-3, THYR, 3051-0 #### [facility] ([id number]) [address] [address] [place] [address] Basophils/100 WBC (Bld) 0.7 % Normal [facility] Comment on above: Performed By: #### C BCA, HA1C, CMP, 06645-2, THYR, 3051-0 #### [facility] ([id number]) [address] [address] [place] [address] Eosinophils (Bld) [#/Vol] 0.1 10*3/uL Normal 0.0-0.4 [facility] Comment on above: Performed By: #### C BCA, HA1C, CMP, 15853-6, THYR, 3051-0 #### [facility] ([id number]) [address] [address] [place] [address] Eosinophils/100 WBC (Bld) 2.1 % Normal [facility] Comment on above: Performed By: #### C BCA, HA1C, CMP, 95826-7, THYR, 3051-0 #### [facility] ([id number]) [address] [place] [address] Erythrocyte distribution width (RBC) [Ratio] 13.8 % Normal 11.5-15.0 [facility] Comment on above: Performed By: #### C BCA, HA1C, CMP, 38200-0, THYR, 3051-0 #### [facility] ([id number]) [address] [facility] [address] [place] [address] Hematocrit (Bld) [Volume fraction] 35.9 % Normal 35-47 [facility] Comment on above: Performed By: #### C BCA, HA1C, CMP, 26200-3, THYR, 3051-0 #### [facility] ([id number]) [address] [address] [place] [address] Hemoglobin (Bld) [Mass/Vol] 12.5 g/dL Normal 11.7-15.5 [facility] Comment on above: Performed By: #### C BCA, HA1C, CMP, 50060-4, THYR, 3051-0 #### [facility] ([id number]) [address] [address] [place] [address] Lymphocytes (Bld) [#/Vol] 1.6 10*3/uL Normal 1.0-3.5 [facility] Comment on above: Performed By: #### C BCA, HA1C, CMP, 93719-8, THYR, 3051-0 #### [facility] ([id number]) [address] [place] [address] Lymphocytes/100 WBC (Bld) 34.8 % Normal [facility] Comment on above: Performed By: #### C BCA, HA1C, CMP, 57086-8, THYR, 3051-0 #### [facility] ([id number]) [address] [facility] [address] [place] [address] MCH (RBC) [Entitic mass] 33.2 pg Normal 27-34 [facility] Comment on above: Performed By: #### C BCA, HA1C, CMP, 83103-8, THYR, 3051-0 #### [facility] ([id number]) [address] [facility] [address] [place] [address] MCHC (RBC) [Mass/Vol] 34.8 g/dL Normal 32-36 [facility] Comment on above: Performed By: #### C BCA, HA1C, CMP, 57954-5, THYR, 305-0 #### [facility] ([id number]) [address] [address] [place] [address] MCV (RBC) [Entitic vol] 95 fL Normal 80-100 [facility] Comment on above: Performed By: #### C BCA, HA1C, CMP, 12193-8, THYR, 3051-0 #### [facility] ([id number]) [address] [address] [place] [address] Monocytes (Bld) [#/Vol] 0.4 10*3/uL Normal 0-0.9 [facility] Comment on above: Performed By: #### C BCA, HA1C, CMP, 56099-5, THYR, 3051-0 #### [facility] ([id number]) [address] [address] [place] [address] Monocytes/100 WBC (Bld) 9.7 % Normal [facility] Comment on above: Performed By: #### C BCA, HA1C, CMP, 63464-2, THYR, 3051-0 #### [facility] ([id number]) [address] [address] [place] [address] Neutrophils/100 WBC (Bld) 52.7 % Normal [facility] Comment on above: Performed By: #### C BCA, HA1C, CMP, 71015-8, THYR, 3051-0 #### [facility] ([id number]) [address] [address] [place] [address] Platelet mean volume (Bld) [Entitic vol] 8.6 fL Normal 7-12 [facility] Comment on above: Performed By: #### C BCA, HA1C, CMP, 23720-1, THYR, 3051-0 #### [facility] ([id number]) [address] [address] [place] [address] Platelets (Bld) [#/Vol] 251 10*3/uL Normal 150-450 [facility] Comment on above: Performed By: #### C BCA, HA1C, CMP, 53441-2, THYR, 3051-0 #### [facility] ([id number]) [address] [address] RBC COUNT 3.76 X10E12/L Low 3.80-5.20 [facility] Comment on above: Performed By: #### C BCA, HA1C, CMP, 44253-6, THYR, 3051-0 #### [facility] ([id number]) [address] [address] [place] [address] WBC (Bld) [#/Vol] 4.6 10*3/uL Normal 4.0-11.0 [facility] [place] Comment on above: Performed By: #### C BCA, HA1C, CMP, 43548-5, THYR, 3051-0 #### [facility] ([id number]) [address] [place] [address] COMPREHENSIVE METABOLIC PANE Abhishek 07-23-2024 Albumin [Mass/Vol] 4.1 g/dL Normal 3.2-5.3 [facility] [place] Comment on above: Performed By: #### C BCA, HA1C, CMP, 27918-2, THYR, 3051-0 #### [facility] ([id number]) [address] [facility] [address] [place] [address] ALP [Catalytic activity/Vol] 69 U/L Normal 39-130 [facility] Comment on above: Performed By: #### C BCA, HA1C, CMP, 85556-1, THYR, 3051-0 #### [facility] ([id number]) [address] [facility] [address] [place] [address] ALT [Catalytic activity/Vol] 9 U/L Normal 0-31 [facility] Comment on above: Performed By: #### C BCA, HA1C, CMP, 54911-4, THYR, 3051-0 #### [facility] ([id number]) [address] [facility] [address] [place] [address] Anion gap [Moles/Vol] 9 mmol/L Normal 5-15 [facility] Comment on above: Performed By: #### C BCA, HA1C, CMP, 48412-3, THYR, 3051-0 #### [facility] ([id number]) [address] [facility] [address] [place] [address] AST [Catalytic activity/Vol] 18 U/L Normal 0-41 [facility] Comment on above: Performed By: #### C BCA, HA1C, CMP, 76213-3, THYR, 3051-0 #### [facility] ([id number]) [address] [place] [address] Bilirubin [Mass/Vol] 1.1 mg/dL Normal 0.3-1.2 [facility] Comment on above: Performed By: #### C BCA, HA1C, CMP, 66782-6, THYR, 3051-0 #### [facility] ([id number]) [address] [address] [place] [address] Calcium [Mass/Vol] 9.4 mg/dL Normal 8.5-10.5 [facility] [place] Comment on above: Performed By: #### C BCA, HA1C, CMP, 41323-7, THYR, 3051-0 #### [facility] ([id number]) [address] [address] [place] [address] Chloride [Moles/Vol] 107 mmol/L Normal 98-109 [facility] Comment on above: Performed By: #### C BCA, HA1C, CMP, 65925-5, THYR, 3051-0 #### [facility] ([id number]) [address] [address] CO2 [Moles/Vol] 28 mmol/L Normal 22-32 [facility] Comment on above: Performed By: #### C BCA, HA1C, CMP, 52813-2, THYR, 3051-0 #### [facility] ([id number]) [address] [address] [place] [address] Creatinine [Mass/Vol] 0.85 mg/dL Normal 0.40-1.00 [facility] Comment on above: Result Comment: METH OD TRACEABLE TO IDMS STANDARD Performed By: #### C BCA, HA1C, CMP, 60772-4, THYR, 3051-0 #### [facility] ([id number]) [address] [address] [place] [address] GFR/1.73 sq M.predicted among non-blacks MDRD (S/P/Bld) [Vol rate/Area] 73 mL/min/{1.73_m2} Normal >59 [facility] Comment on above: Result Comment: Reported eGFR is based on the CKD-EPI 2020 equation that does not use a race coefficient. Performed By: #### C BCA, HA1C, CMP, 04139-9, THYR, 3051-0 #### [facility] ([id number]) [address] [place] [address] Glucose [Mass/Vol] 90 mg/dL Normal 65-99 [facility] [place] Comment on above: Performed By: #### C BCA, HA1C, CMP, 40321-9, THYR, 3051-0 #### [facility] ([id number]) [address] [place] [address] Potassium [Moles/Vol] 4.0 mmol/L Normal 3.5-5.0 [facility] Comment on above: Performed By: #### C BCA, HA1C, CMP, 59478-9, THYR, 3051-0 #### [facility] ([id number]) [address] [place] [address] Protein [Mass/Vol] 6.8 g/dL Normal 6.0-8.0 [facility] [place] Comment on above: Performed By: #### C BCA, HA1C, CMP, 17671-5, THYR, 3051-0 #### [facility] ([id number]) [address] [place] [address] Sodium [Moles/Vol] 144 mmol/L Normal 134-146 [facility] [place] Comment on above: Performed By: #### C BCA, HA1C, CMP, 78884-5, THYR, 3051-0 #### [facility] ([id number]) [address] [place] [address] Urea nitrogen [Mass/Vol] 19 mg/dL Normal 5-27 [facility] Comment on above: Performed By: #### C BCA, HA1C, CMP, 28354-4, THYR, 3051-0 #### [facility] ([id number]) [address] [place] [address] FREE T3on 11-07-2024 Free T3 [Mass/Vol] 2.66 pg/mL Normal 2.50-3.90 [facility] [place] Comment on above: Performed By: #### C BCA, HA1C, CMP, 10512-2, THYR, 3051-0 #### [facility] ([id number]) [address] [place] [address] HGB A1C (GLYCO-HGB)on 2023 Glucose [Mass/Vol] 108 mg/dL Normal [facility] [place] Comment on above: Performed By: #### C BCA, HA1C, CMP, 62141-8, THYR, 305-0 #### [facility] ([id number]) [address] [place] [address] HbA1c (Bld) [Mass fraction] 5.4 % Normal 4.4-5.6 [facility] Comment on above: Result Comment: NOTE ADA Guidelines Result HgbA1c Normal : less than 5.7 % Prediabetes : 5.7 % to 6.4 % Diabetes : > 6.4 % Use with caution in patients with abnormal hemoglobin variants as the half-life of red blood cells and in vivo glycation rates are affected. Performed By: #### C BCA, HA1C, CMP, 33060-0, THYR, 305-0 #### [facility] ([id number]) [address] [place] [address] Insulin Qnon 07-23-2024 INSULIN 7.91 uIU/mL Normal 1.00-23.00 [facility] Comment on above: Result Comment: Ref. range is for FASTING NON-DIABETIC POPULATION. Performed By: #### 2 0448-7 #### [facility] ([id number]) [address] [place] [address] Lipid 1996 panelon 4 Cholesterol [Mass/Vol] 222 mg/dL High 150-200 [facility] Comment on above: Performed By: #### C BCA, HA1C, CMP, 62909-0, THYR, 3051-0 #### [facility] ([id number]) [address] [place] [address] Cholesterol in HDL [Mass/Vol] 67 mg/dL Normal >39 [facility] Comment on above: Result Comment: HDL <40 mg/dL - High Risk HDL > or = 40mg/dL- Desirable HDL >60 mg/dL - Negative Risk Performed By: #### C BCA, HA1C, CMP, 34685-7, THYR, 3051-0 #### [facility] ([id number]) [address] [place] [address] Cholesterol in LDL [Mass/Vol] 138 mg/dL High <130 [facility] Comment on above: Result Comment: LDL <100 mg/dL - Desirable LDL >160 mg/dL - High Risk Performed By: #### C BCA, HA1C, CMP, 94250-4, THYR, 3051-0 #### [facility] ([id number]) [address] [place] [address] Cholesterol in VLDL [Mass/Vol] 17 mg/dL Normal 0-30 [facility] Comment on above: Performed By: #### C BCA, HA1C, CMP, 04828-8, THYR, 3051-0 #### [facility] ([id number]) [address] [place] [address] CHOLESTEROL:HDL 3.3 Normal 1.0-5.0 [facility] Comment on above: Performed By: #### C BCA, HA1C, CMP, 95296-2, THYR, 3051-0 #### [facility] ([id number]) [address] [place] [address] Triglyceride [Mass/Vol] 86 mg/dL Normal 27-150 [facility] Comment on above: Performed By: #### C BCA, HA1C, CMP, 36475-7, THYR, 3051-0 #### [facility] ([id number]) [address] [place] [address] THYROID PROFILEon 07-23-2024 Free T4 [Mass/Vol] 0.72 ng/dL Normal 0.61-1.60 [facility] [place] Comment on above: Performed By: #### C BCA, HA1C, CMP, 41862-9, THYR, 3051-0 #### [facility] ([id number]) [address] [place] [address] TSH 1.71 uIU/mL Normal 0.49-4.67 [facility] Comment on above: Performed By: #### C BCA, HA1C, CMP, 07018-4, THYR, 3051-0 #### [facility] ([id number]) [address] [place] [address] MR BRAIN WO CONTon 4 MR BRAIN WO CONT MR BRAIN WO [...] Haskins MD on 09/26/2023 7:49 PM Normal [facility] Folate [Mass/volume] in Seru m or PlasmaOrdered By: Jorge Ladd on 09-03-2023 Folate [Mass/Vol] 15.2 ng/mL >5.9 [facility] Comment on above: Folate reference ran ge: >5.9 ng/mlThe WHO technical consultation on folate and vitamin [id number] has determined that folate concentrations lessthan 4 ng/ml are considered deficient. Thyrotropin [Units/volume] i n Serum or PlasmaOrdered By: Jorge Ladd on 09-03-2023 TSH Qn 1.89 m[IU]/L Normal 0.45-5.33 [facility] Comment on above: Result Comment: PERF ORMED BY: [place] [address] PATHOLOGIST [employer]INEERING TECHNOLOGIST LISSA SORIANO M.D. Performed By: #### T SH3, [id number] #### [address] Vit. B12/Folate Profileon Folate 15.2 ng/mL Normal >5.9 [facility] Comment on above: Result Comment: Mel te reference range: >5.9 ng/ml The WHO technical consultation on folate and vitamin b12 deficiencies has determined that folate concentrations less than 4 ng/ml are considered deficient. Performed By: #### T SH3, [id number] #### [facility] [address] [place] [address] Vitamin B12 ser/plasOrdered By: Jorge Ladd on 09-03-2023 Cobalamin (Vitamin B12) [Mass/Vol] 711 pg/mL Normal 180-914 [facility] Comment on above: Performed By: #### T SH3, [id number] #### [facility] [address] [place] [address] CBC AUTO DIFFon 12-20-2022 BASO # 0.0 103/ul Normal 0.0-0.1 [facility] Comment on above: Performed By: #### C BC ####[facility] [address] [place] [address]Dr. Veena Hernández Basophils/100 WBC (Bld) 0.1 % Critically low 0.2-2.0 [facility] Comment on above: Performed By: #### C BC ####[facility] [address] [place], [place] [address]Dr. Veena Hernández EO # 0.1 103/ul Normal 0.0-0.7 [facility] Comment on above: Performed By: #### C BC ####[facility] [address] [place], [place] [address]Dr. Veena Hernández Eosinophils/100 WBC (Bld) 1.2 % Normal 0.9-7.0 [facility] Comment on above: Performed By: #### C BC ####[facility] [address] [place], [place] [address]Dr. Veena Hernández Erythrocyte distribution width (RBC) [Ratio] 13.2 % Normal 11.0-15.0 [facility] Comment on above: Performed By: #### C BC ####[facility] [address] [place], [place] [address]Dr. Veena Hernández Hematocrit (Bld) [Volume fraction] 38.4 % Normal 36.0-48.0 [facility] Comment on above: Performed By: #### C BC ####[facility] [address] [place], [place] [address]Dr. Veena Hernández Hemoglobin (Bld) [Mass/Vol] 12.6 g/dL Normal 12.0-16.0 [facility] Comment on above: Performed By: #### C BC ####[facility] [address] [place], [place] [address]Dr. Veena Hernández IG # 0.02 10e3/ul Normal 0.00-0.03 [facility] Comment on above: Performed By: #### C BC ####[facility] [address] [place], [place] [address]Dr. Veena Hernández IG % 0.3 % Normal 0.0-0.5 [facility] Comment on above: Performed By: #### C BC ####[facility] [address] [place] [id number]. Veena Edgar LYMPH # 0.3 103/ul Critically low 1.2-3.8 [facility] Comment on above: Performed By: #### C BC ####[facility] [address] [place] [id number]. Veena Hernández Lymphocytes/100 WBC (Bld) 4.1 % Critically low 20.5-60.0 [facility] Comment on above: Performed By: #### C BC ####[facility] [address] [place] [id number]. Valeha Hernández MANUAL DIFF REQ NO Normal [facility] Comment on above: Performed By: #### C BC ####[facility] [address] [place] [id number]. Veena Edgar MCH (RBC) [Entitic mass] 31.4 pg Normal 26.7-34.0 [facility] Comment on above: Performed By: #### C BC ####[facility] [address] [place] [address]Dr. Veena Edgar MCHC (RBC) [Mass/Vol] 32.8 g/dL Normal 29.9-35.2 [facility] Comment on above: Performed By: #### C BC ####[facility] [address] [place] [id number]. Veena Edgar MCV (RBC) [Entitic vol] 95.8 fL Normal 81.0-99.0 [facility] Comment on above: Performed By: #### C BC ####[facility] [address] [place] [id number]. Veena Edgar MONO # 0.3 103/ul Normal 0.3-0.8 [facility] Comment on above: Performed By: #### C BC ####[facility] [address] [place] [id number]. Veena Edgar Monocytes/100 WBC (Bld) 3.8 % Normal 1.7-12.0 [facility] Comment on above: Performed By: #### C BC ####[facility] [address] [place], [place] [address]Tg. Veena Hernández NEUT # 7.1 103/ul Critically high 1.4-6.5 [facility] Comment on above: Performed By: #### C BC ####[facility] [address] [place] [id number]. Veena Hernández Neutrophils/100 WBC (Bld) 90.5 % Critically high 43.0-75.0 [facility] Comment on above: Performed By: #### C BC ####[facility] [address] [place] [id number]. Veena Hernández Platelet mean volume (Bld) [Entitic vol] 9.8 fL Normal 9.5-13.5 [facility] Comment on above: Performed By: #### C BC ####[facility] [address] [place] [id number]. Veena Hernández PLT 231 103/ul Normal 150-450 [facility] Comment on above: Performed By: #### C BC ####[facility] [address] [place], [place] [address]Zf. Veena Hernández RBC 4.01 106/ul Critically low 4.20-5.40 [facility] Comment on above: Performed By: #### C BC ####[facility] [address] [place] [id number]. Veena Hernández WBC 7.8 103/ul Normal 4.0-11.0 [facility] Comment on above: Performed By: #### C BC ####[facility] [address] [place] [id number]. Veena Hernández Covid-19 PCR (CVDTB)on SARS-CoV-2 (COVID-19) RNA ROGER+probe Ql (Unsp spec) Not detected Normal NOT DETECTED [facility] Comment on above: Result Comment: This test is not yet approved or cleared by the [place] FDA. When there are no FDA-approved or cleared tests available, and other criteria are met, FDA can make tests available under an emergency access mechanism called an Emergency Use Authorization (EUA). The EUA for this test is supported by the [place] of Health and Human Service's (HHS's) declaration [...] with SARS-CoV-2. Performed By: #### C VDTBH ####[address] [facility] INFLUENZA A AND B AGon 12-20 [facility] SEE BELOW Normal [facility] Comment on above: Result Comment: Nega tive for Flu A protein angiten. Infection due to Flu A cannot be ruled out. Flu A angiten in the sample may be below the detection limit of the test. Performed By: #### I NFLUAB ####[facility] [address] [place], [place] [address]Dr. Veena [facility] INFLUBNEGH SEE BELOW Normal [facility] Comment on above: Result Comment: Nega tive for Flu B protein antigen. Infection due to Flu B cannot be ruled out. Flu B antigen in the sample may be below the detection limit of the test. Performed By: #### I NFLUAB ####[facility] [address] [place], [place] [address]Dr. Veena [facility] INFLUENZA A AG Negative Normal NEGATIVE SEE COMMENT [facility] Comment on above: Performed By: #### I NFLUAB ####[facility] [address] [place], [place] [address]Dr. ha [facility] INFLUENZA B AG Negative Normal NEGATIVE SEE COMMENT [facility] Comment on above: Performed By: #### I NFLUAB ####[facility] [address] [place] [address]. Veena Hernández LACTATE/LACTIC ACIDon 2022 Lactate [Moles/Vol] 0.7 mmol/L Normal 0.4-2.0 [facility] Comment on above: Performed By: #### L ACT ####[facility] [address] [place] [address]Dr. Veena Hernández LIPASEon 12-20-2022 Lipase [Catalytic activity/Vol] 309.0 U/L Normal 73.0-393.0 [facility] Comment on above: Performed By: #### L IPA, HSTROPN, CMP ####[facility] [address] [place] [address]Dr. Veena Hernández PROF 14(COMP METB)on 023 Albumin [Mass/Vol] 3.7 g/dL Normal 3.4-5.0 [facility] Comment on above: Performed By: #### L IPA, HSTROPN, CMP ####[facility] [address] [place], [place] [address]Dr. Veena Hernández Albumin/Globulin [Mass ratio] 1.2 {ratio} Normal [facility] Comment on above: Performed By: #### L IPA, HSTROPN, CMP ####[facility] [address] [place], [place] [address]Dr. Veena Hernández ALP [Catalytic activity/Vol] 85 U/L Normal 46-116 [facility] Comment on above: Performed By: #### L IPA, HSTROPN, CMP ####[facility] [id number] [place] [address]Dr. Veena Hernández ALT [Catalytic activity/Vol] 15 U/L Normal 14-59 [facility] Comment on above: Performed By: #### L IPA, HSTROPN, CMP ####[facility] [address] [place] [address]Dr. Veena Hernández Anion gap [Moles/Vol] 11.2 mmol/L Normal [facility] Comment on above: Performed By: #### L IPA, HSTROPN, CMP ####[facility] [address] [place] [address]Dr. Veena Hernández AST [Catalytic activity/Vol] 15 U/L Normal 15-37 [facility] Comment on above: Performed By: #### L IPA, HSTROPN, CMP ####[facility] [address] [place] [address]Dr. Veena Hernández Bilirubin [Mass/Vol] 0.9 mg/dL Normal 0.2-1.0 [facility] Comment on above: Performed By: #### L IPA, HSTROPN, CMP ####[facility] [address] [place], [place] [address]Dr. Veena Hernández Calcium [Mass/Vol] 8.7 mg/dL Normal 8.5-10.1 [facility] Comment on above: Performed By: #### L IPA, HSTROPN, CMP ####[place] [facility] [address] [place], [place] [address]Dr. Veena Hernández Chloride [Moles/Vol] 104 mmol/L Normal 98-107 [facility] Comment on above: Performed By: #### L IPA, HSTROPN, CMP ####[facility] [address] [place], [place] [address]Dr. Veena Hernández CO2 [Moles/Vol] 27.8 mmol/L Normal 21.0-32.0 [facility] Comment on above: Performed By: #### L IPA, HSTROPN, CMP ####[facility] [address] [place], [place] [address]Dr. Veena Hernández Creatinine [Mass/Vol] 0.77 mg/dL Normal 0.55-1.02 [facility] Comment on above: Performed By: #### L IPA, HSTROPN, CMP ####[facility] [address] [place], [place] [address]Dr. Valelan Hernández EGFR-AF DOMINICAN >60 Normal >=60 [facility] Comment on above: Performed By: #### L IPA, HSTROPN, CMP ####[facility] [address] [place], [place] [address]Dr. Veena Hernández EGFR-NON AF DOMINICAN >60 Normal >=60 [facility] Comment on above: Performed By: #### L IPA, HSTROPN, CMP ####[facility] [address] [address]Dr. Veena Hernández Globulin (S) [Mass/Vol] 3.2 g/dL Normal [facility] Comment on above: Performed By: #### L IPA, HSTROPN, CMP ####[facility] [address] [address]Dr. Veena Hernández Glucose [Mass/Vol] 121 mg/dL Critically high 74-106 [facility] Comment on above: Performed By: #### L IPA, HSTROPN, CMP ####[facility] [address] [place], [place] [address]Dr. Veena Hernández Potassium [Moles/Vol] 4.0 mmol/L Normal 3.5-5.1 [facility] Comment on above: Performed By: #### L IPA, HSTROPN, CMP ####[facility] [address] [place], [place] [address]Dr. Veena Hernández Protein [Mass/Vol] 6.9 g/dL Normal 6.4-8.2 [facility] Comment on above: Performed By: #### L IPA, HSTROPN, CMP ####[facility] [address] [place], [place] [address]Dr. Veena Hernández Sodium [Moles/Vol] 139 mmol/L Normal 136-145 [facility] Comment on above: Performed By: #### L IPA, HSTROPN, CMP ####[facility] [address] [place] [address]Dr. Veena Hernández Urea nitrogen [Mass/Vol] 19.0 mg/dL Critically high 7.0-18.0 [facility] Comment on above: Performed By: #### L IPA, HSTROPN, CMP ####[facility] [address] [place], [place] [address]Dr. Veena Hernández Urea nitrogen/Creatinine [Mass ratio] 24.7 mg/mg Normal [facility] Comment on above: Performed By: #### L IPA, HSTROPN, CMP ####[facility] [address] [id number]. Veena Hernández SYMPTOMATIC COVID-19 ANTIGEN on 12-20-2022 EUA Statement SEE BELOW Normal The [facility] Comment on above: Result Comment: This test [...] revoked sooner. Performed By: #### C VDAGS ####[facility] [address] [place] [address]Dr. Veena Hernández SARS-CoV-2 (COVID-19) RNA ROGER+probe Ql (Unsp spec) Negative Normal NEGATIVE [facility] Comment on above: Performed By: #### C VDAGS ####[facility] [address] [place] [address]Dr. Veean Hernández TROPONIN, HIGH SENSITIVITYon 12-20-2022 HSTROP <4.0 Normal 4.0-51.3 [facility] Comment on above: Result Comment: CUT- OFF POINTS HAVE BEEN ESTABLISHED BASED ON THE FOURTH UNIVERSAL DEFINITIONS OF MYOCARDIAL INFARCTION. THE UPPER REFERENCE LIMIT (URL) OF TROPONIN, DEFINED THE 99TH PERCENTILE OF cTnI DISTRIBUTION IN A REFERENCE POPULATION, HAS BEEN CONFIRMED THE DECISION THRESHOLD FOR GA DIAGNOSIS. Performed By: #### L IPA, HSTROPN, CMP ####[facility] [address] [place] [address]Dr. Veena Hernández XR CSPINE 2_3 VIEWSon 2021 [...] by: ONUR SOLANO Date: 2022-09-05 17:06 Normal [facility] ECHOCARDIO M/2D COMPLETEon 1 10-30-2021 ECHOCARDIO M/2D COMPLETE Patient: KEVON CAMPOS Exam Date: 08/29/2022 : 1950 Gender:F Ordering : [facility] Admission #: [id number] Family : Order #: [id number] CLICK HERE TO VIEW EXAM ECHOCARDIOGRAM REPORT [...] Haney M.D. on 08/30/2022 at 12:57 Normal [facility] NM STRESS/REST MULTIon 08-29 NM STRESS/REST MULTI Patient: KEVON CAMPOS Exam Date: 08/29/2022 : 1950 Gender:F Ordering : [facility] Admission #: [id number] Family : Order #: [id number] CLICK HERE TO VIEW EXAM RADIOLOGY REPORT [...] M.D. on 08/29/2022 at 15:58 Normal [facility] BNPon 08-01-2022 Natriuretic peptide B (Bld) [Mass/Vol] 41.0 pg/mL Normal <=900.0 [facility] Comment on above: Performed By: #### C K, CKMB, REINALDO, CMP, BNP, HSTROPN #### [facility] [address] [place] [address] Dr. Veena Hernández CBC AUTO DIFFon 08-01-2022 BASO # 0.0 103/ul Normal 0.0-0.1 [facility] Comment on above: Performed By: #### C BC ####[facility] [address] [place], [place] [address]Dr. Veena Edgar Basophils/100 WBC (Bld) 0.8 % Normal 0.2-2.0 [facility] Comment on above: Performed By: #### C BC ####[facility] [address] [place], [place] [address]Dr. Veena Hernández EO # 0.1 103/ul Normal 0.0-0.7 [facility] Comment on above: Performed By: #### C BC ####[facility] [address] [place], [place] [address]Dr. Veena Hernández Eosinophils/100 WBC (Bld) 1.3 % Normal 0.9-7.0 [facility] Comment on above: Performed By: #### C BC ####[facility] [address] [place], [place] [address]Dr. Veena Hernández Erythrocyte distribution width (RBC) [Ratio] 13.3 % Normal 11.0-15.0 [facility] Comment on above: Performed By: #### C BC ####[facility] [address] [place], [place] [address]Dr. Veena Hernández Hematocrit (Bld) [Volume fraction] 39.3 % Normal 36.0-48.0 [facility] Comment on above: Performed By: #### C BC ####[facility] [address] [place], [place] [address]Dr. Veena Hernández Hemoglobin (Bld) [Mass/Vol] 12.9 g/dL Normal 12.0-16.0 [facility] Comment on above: Performed By: #### C BC ####[facility] [address] [place], [place] [address]Dr. Veena Hernández IG # 0.00 10e3/ul Normal 0.00-0.03 [facility] Comment on above: Performed By: #### C BC ####[facility] [address] [place] [address]Dr. Veena Hernández IG % 0.0 % Normal 0.0-0.5 [facility] Comment on above: Performed By: #### C BC ####[facility] [address] [place], [place] [address]Dr. Veena Hernández LYMPH # 1.8 103/ul Normal 1.2-3.8 [facility] Comment on above: Performed By: #### C BC ####[facility] [address] [place], [place] [address]Dr. Veena Hernández Lymphocytes/100 WBC (Bld) 34.3 % Normal 20.5-60.0 [facility] Comment on above: Performed By: #### C BC ####[facility] [address] [place], [place] [address]Dr. Veena Hernández MANUAL DIFF REQ NO Normal [facility] Comment on above: Performed By: #### C BC ####[facility] [address] [place], [place] [address]Dr. Veena Hernández MCH (RBC) [Entitic mass] 31.1 pg Normal 26.7-34.0 [facility] Comment on above: Performed By: #### C BC ####[facility] [address] [place], [place] [address]Dr. Valeha Hernández MCHC (RBC) [Mass/Vol] 32.8 g/dL Normal 29.9-35.2 [facility] Comment on above: Performed By: #### C BC ####[facility] [address] [place], [place] [address]DrLindsey Hernández MCV (RBC) [Entitic vol] 94.7 fL Normal 81.0-99.0 [facility] Comment on above: Performed By: #### C BC ####[facility] [address] [place], [place] [address]DrLindsey Hernández MONO # 0.3 103/ul Normal 0.3-0.8 [facility] Comment on above: Performed By: #### C BC ####[facility] [address] [place], [place] [address]Dr. Veena Hernández Monocytes/100 WBC (Bld) 6.1 % Normal 1.7-12.0 [facility] Comment on above: Performed By: #### C BC ####[facility] [address] [place] [address]Dr. Veena Hernández NEUT # 3.0 103/ul Normal 1.4-6.5 [facility] Comment on above: Performed By: #### C BC ####[facility] [address] [place] [address]Dr. Veena Hernández Neutrophils/100 WBC (Bld) 57.5 % Normal 43.0-75.0 [facility] Comment on above: Performed By: #### C BC ####[facility] [address] [place] [address]Dr. Veena Hernández Platelet mean volume (Bld) [Entitic vol] 9.8 fL Normal 9.5-13.5 [facility] Comment on above: Performed By: #### C BC ####[facility] [address] [place] [address]Dr. Veena Hernández PLT 227 103/ul Normal 150-450 [facility] Comment on above: Performed By: #### C BC ####[facility] [address] [place] [address]Dr. Veena Hernández RBC 4.15 106/ul Critically low 4.20-5.40 [facility] Comment on above: Performed By: #### C BC ####[facility] [address] [place] [id number]. Veena Hernández WBC 5.3 103/ul Normal 4.0-11.0 [facility] Comment on above: Performed By: #### C BC ####[facility] [address] [place] [address]Dr. Veena Hernández CKMBon 08-01-2022 CK.MB [Mass/Vol] 0.90 ng/mL Normal <=3.60 [facility] Comment on above: Performed By: #### C K, CKMB, REINALDO, CMP, BNP, HSTROPN #### [facility] [address] [address] [address] Veena Hernández CPKon 08-01-2022 CK [Catalytic activity/Vol] 66 U/L Normal 26-192 [facility] Comment on above: Performed By: #### C K, CKMB, REINALDO, CMP, BNP, HSTROPN #### [facility] [address] [address] [address] Veena Hernández MYOGLOBINon 08-01-2022 REINALDO 38 ng/mL Normal 9-82 [facility] Comment on above: Performed By: #### C K, CKMB, REINALDO, CMP, BNP, HSTROPN ####[facility] [address] [place] [address]Dr. Veena Hernández PROF 14(COMP METB)on 022 Albumin [Mass/Vol] 4.0 g/dL Normal 3.4-5.0 [facility] Comment on above: Performed By: #### C K, CKMB, REINALDO, CMP, BNP, HSTROPN #### [facility] [address] [address] [address] Veena Hernández Albumin/Globulin [Mass ratio] 1.3 {ratio} Normal [facility] Comment on above: Performed By: #### C K, CKMB, REINALDO, CMP, BNP, HSTROPN #### [facility] [address] [address] [address] Veena Hernández ALP [Catalytic activity/Vol] 69 U/L Normal 46-116 [facility] Comment on above: Performed By: #### C K, CKMB, REINALDO, CMP, BNP, HSTROPN #### [facility] [address] [address] [address] Veena Hernández ALT [Catalytic activity/Vol] 15 U/L Normal 14-59 [facility] Comment on above: Performed By: #### C K, CKMB, REINALDO, CMP, BNP, HSTROPN #### [facility] [address] [address] [address] Veena Hernández Anion gap [Moles/Vol] 7.4 mmol/L Normal [facility] Comment on above: Performed By: #### C K, CKMB, REINALDO, CMP, BNP, HSTROPN #### [facility] [address] [place] [address] Dr. Veena Hernández AST [Catalytic activity/Vol] 14 U/L Critically low 15-37 [facility] Comment on above: Performed By: #### C K, CKMB, REINALDO, CMP, BNP, HSTROPN #### [facility] [address] [place] [address] Dr. Veena Hernández Bilirubin [Mass/Vol] 1.9 mg/dL Critically high 0.2-1.0 [facility] Comment on above: Performed By: #### C K, CKMB, REINALDO, CMP, BNP, HSTROPN #### [facility] [address] [place] [address] Dr. Veena Hernández Calcium [Mass/Vol] 9.4 mg/dL Normal 8.5-10.1 [facility] Comment on above: Performed By: #### C K, CKMB, REINALDO, CMP, BNP, HSTROPN #### [facility] [address] [place] [address] Dr. Veena Hernández Chloride [Moles/Vol] 106 mmol/L Normal 98-107 [facility] Comment on above: Performed By: #### C K, CKMB, REINALDO, CMP, BNP, HSTROPN #### [facility] [address] [place] [address] Dr. Veena Hernández CO2 [Moles/Vol] 32.3 mmol/L Critically high 21.0-32.0 [facility] Comment on above: Performed By: #### C K, CKMB, REINALDO, CMP, BNP, HSTROPN #### [facility] [address] [place] [address] Dr. Veena Hernández Creatinine [Mass/Vol] 0.80 mg/dL Normal 0.55-1.02 [facility] Comment on above: Performed By: #### C K, CKMB, REINALDO, CMP, BNP, HSTROPN #### [facility] [address] [address] [address] Veena Hernández EGFR-AF DOMINICAN >60 Normal >=60 [facility] Comment on above: Performed By: #### C K, CKMB, REINALDO, CMP, BNP, HSTROPN #### [facility] [address] [place] [address] Dr. Veena Hernández EGFR-NON AF DOMINICAN >60 Normal >=60 [facility] Comment on above: Performed By: #### C K, CKMB, REINALDO, CMP, BNP, HSTROPN #### [facility] [address] [address] [address] Veena Hernández Globulin (S) [Mass/Vol] 3.2 g/dL Normal [facility] Comment on above: Performed By: #### C K, CKMB, REINALDO, CMP, BNP, HSTROPN #### [facility] [address] [place] [address] Dr. Veena Hernández Glucose [Mass/Vol] 98 mg/dL Normal 74-106 [facility] Comment on above: Performed By: #### C K, CKMB, REINALDO, CMP, BNP, HSTROPN #### [facility] [address] [address] [address] Veena Hernández Potassium [Moles/Vol] 3.7 mmol/L Normal 3.5-5.1 [facility] Comment on above: Performed By: #### C K, CKMB, REINALDO, CMP, BNP, HSTROPN #### [facility] [address] [address] [address] Veena Hernández Protein [Mass/Vol] 7.2 g/dL Normal 6.4-8.2 [facility] Comment on above: Performed By: #### C K, CKMB, REINALDO, CMP, BNP, HSTROPN #### [facility] [address] [place] [address] Dr. Veena Hernández Sodium [Moles/Vol] 142 mmol/L Normal 136-145 [facility] Comment on above: Performed By: #### C K, CKMB, REINALDO, CMP, BNP, HSTROPN #### [facility] [address] [address] [address] Veena Hernández Urea nitrogen [Mass/Vol] 11.0 mg/dL Normal 7.0-18.0 [facility] Comment on above: Performed By: #### C K, CKMB, REINALDO, CMP, BNP, HSTROPN #### [facility] [address] [address] [address] Veena Hernández Urea nitrogen/Creatinine [Mass ratio] 13.8 mg/mg Normal [facility] Comment on above: Performed By: #### C K, CKMB, REINALDO, CMP, BNP, HSTROPN #### [facility] [address] [address] [address] Veena Hernández TROPONIN, HIGH SENSITIVITYon 08-01-2022 HSTROP 5.0 pg/mL Normal 4.0-51.3 [facility] Comment on above: Result Comment: CUT- OFF POINTS HAVE BEEN ESTABLISHED BASED ON THE FOURTH UNIVERSAL DEFINITIONS OF MYOCARDIAL INFARCTION. THE UPPER REFERENCE LIMIT (URL) OF TROPONIN, DEFINED THE 99TH PERCENTILE OF cTnI DISTRIBUTION IN A REFERENCE POPULATION, HAS BEEN CONFIRMED THE DECISION THRESHOLD FOR GA DIAGNOSIS. Performed By: #### C K, CKMB, REINALDO, CMP, BNP, HSTROPN #### [facility] [address] [address] [address] Veena Hernández XR CHEST 2 Von [...] ONUR SOLANO Date: 2022-08-01 10:19 Normal [facility] XR LSPINE 2_3 VIEWSon 2021 XR LSPINE [...] by: CARLOS KEMP Date: 2022-07-12 19:26 Normal [facility] XR HIP RT INJon 04-03-2022 XR [...] by: ONUR SOLANO Date: 2022-04-03 09:18 Normal [facility] Encounters Encounter Date Encounter Type Care Provider Facility Start: 09-29-2024 End: 09-29-2024 Orders Only Duyen Urbano NP Work Phone: [facility] Comment on above: 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) (Primary Dx) Start: 08-08-2024 End: 08-08-2024 ambulatory [facility] Start: 08-05-2024 End: 08-05-2024 ambulatory [facility] Start: 07-23-2024 End: 07-23-2024 ambulatory [facility] Start: 06-15-2024 End: 06-15-2024 Refill Duyen Urbano NP Work Phone: [facility] Comment on above: Primary hypertension (CMS/HCC) Start: 04-14-2024 End: 04-14-2024 ambulatory SHAIKH ELDER Not Available Start: 01-06-2024 End: 01-06-2024 ambulatory SHAIKH ELDER Not Available Start: 10-16-2023 End: 10-16-2023 ambulatory MIRZA [facility] Start: 10-16-2023 End: 10-16-2023 [facility] Work Phone: [facility] Comment on above: Sensorineural hearin g loss (SNHL) of both ears (Primary Dx); Tinnitus of both ears; Dizziness Dizziness and giddin ess (Primary Dx); Tinnitus of both ears Start: 09-26-2023 End: 09-26-2023 ambulatory JORGE Rolo JULEE [facility] Start: 09-25-2023 End: 09-25-2023 ambulatory SHAIKH ELDER Not Available Start: 09-03-2023 End: 09-03-2023 ambulatory Shaikh Elder Facility:[facility] Start: 09-03-2023 End: 09-03-2023 ambulatory MD Shaikh Fisher Work Phone: [facility] Work Phone: Start: 09-03-2023 End: 09-03-2023 Patient encounter procedure MD Shaikh Fisher Work Phone: [facility] Work Phone: Start: 08-12-2023 End: 08-12-2023 ambulatory SHAIKH ELDER Not Available Start: 07-31-2023 End: 07-31-2023 ambulatory LASHELL HARLEY Not Available Start: 12-20-2022 End: 12-20-[address] GEOFFREY COPELAND . 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 FAMILIA MEREDITH Facility:[facility] Start: 07-12-2022 End: 07-13-2022 ambulatory SHAIKH Deon FISHER Facility:[facility] Start: 04-03-2022 End: 04-03-[address] MIRELLA GUEVARA Facility:[facility] Procedures Date Procedure Procedure Detail Performing Clinician Start: 08-27-2023 Mammography Duyen desai NP Work Phone: Start: 07-11-2023 Adult depression screening assessment Mirza SANTIZO Work Phone: Plan of Treatment Date Care Activity Detail Author Start: 01-05-2025 Medicare Annual Well ness (AWV) Medicare Annual Wellness (AWV) [facility] Start: 08-27-2024 Screening for malign ant neoplasm of breast Mammogram [facility] Start: 08-17-2024 End: 08-17-2024 Patient encounter procedure 08/17/2024 10:30 AM EST Office Visit [facility] [address] [place] [address] Duyen Urbano NP [address] [place] [address] [facility] Start: 07-11-2024 Adult BMI Screening Adult BMI Screen ing [facility] Start: 07-11-2024 Depression Screening Depression Scre ening [facility] Start: 07-11-2024 Fall Risk Screening Fall Risk Screen ing [facility] Start: 07-11-2024 Tobacco Screening Tobacco Screening [facility] Start: 05-17-2024 Influenza vaccination Influenza Vacc ine (#1) [facility] Start: 09-16-2023 Screening for malign ant neoplasm of colon [facility] Start: 10-28-2015 Administration of varicella zoster vaccine Zoster (Shingles) Vaccine (2 of 3) [facility] Start: 07-16-2009 Pneumococcal Vaccine : 65+ Years (2 of 2 - PCV) Pneumococcal Vaccine: 65+ Years (2 of 2 - PCV) [facility] Start: 01-07-1971 DTaP,Tdap and Td Vaccines (1 - Tdap) DTaP,Tdap and Td Vaccines (1 - Tdap) [facility] Start: 01-07-1970 Adult BMI Follow Up Plan Adult BMI Follow Up Plan [facility] Start: 1950 Medicare Annual Well ness Visit Medicare Annual Wellness Visit [facility] Start: 1950 Screening for malign ant neoplasm of colon [facility] Comprehensive hearin g test Comprehensive hearing test Audiology Routine Giddiness Ordered: 08/01/2023 [facility] Work Phone: Comment on above: Ordered: 08/01/2023 Immunizations Immunization Date Immunization Notes Care Provider Fa sb 07-13-2023 influenza virus vaccine, unspecified formulation 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: [facility] 09-02-2015 zoster vaccine, live Benjrand Britt AUD Work Phone: [facility] 09-02-2015 zoster vaccine, unspecified formulation Mirza Britt AUD Work Phone: [facility] 09-14-2014 influenza, injectabl e, quadrivalent, contains preservative Mirza Britt AUD Work Phone: [facility] 07-16-2008 pneumococcal polysaccharide vaccine, 23 valent Mirza Britt AUD [facility] Payers Date Payer Category Payer Medicare (Managed Care) [facility] [id number] 2023 Unknown [id number] 2023 Medicare [id number] 2023 Self-pay 1959 Unknown [id number] 1959 Unknown [id number] 1950 Unknown [id number] 2.16.840.1.819869.3.579. 2.593 1952 Unknown [id number] 2.16.840.1.722395.3.579. 2.593 1952 Unknown [id number] 2.16.840.1.763928.3.579. 2.593 1952 Unknown [id number] 2.16.840.1.070411.3.579. 2.593 1952 Unknown [id number] 2.16.840.1.678522.3.579. 2.593 1952 Unknown [id number] 2.16.840.1.144774.3.579. 2.593 1952 Unknown [id number] 2.16.840.1.287675.3.579. 2.593 1952 Unknown [id number] 2.16.840.1.560401.3.579. 2.593 1952 Unknown [id number] 2.16.840.1.450144.3.579. 2.593 1952 Unknown [id number] 2.16.840.1.853158.3.579. 2.1286 1952 Unknown [id number] 2.16.840.1.276059.3.579. 2.128 1952 Unknown [id number] 2.16.840.1.178687.3.579. 2.1259 1952 Unknown [id number] 2.16.840.1.445817.3.579. 2.1259 1952 Unknown [id number] 2.16.840.1.266235.3.579. 2.1259 1952 Unknown [id number] 2.16.840.1.324538.3.579. 2.1259 1952 Unknown [id number] 2.16.840.1.915432.3.579. 2.1259 1952 Unknown [id number] 2.16.840.1.593312.3.579. 2.128 1952 Unknown [id number] 2.16.840.1.858126.3.579. 2.128 1952 Unknown [id number] 2.16840.1.662393.3.579. 2.128 1952 Unknown [id number] 2.16.840.1.257313.3.579. 2.1286 Medicare Medicare [id number] Unknown [id number] Social History Date Type Detail Facility Tobacco smoking status ILIS Unknown if ever smoked [facility] Work Phone: Start: 1950 Sex Assigned At Female F [facility] [place] Start: 06-13-2023 End: 01-06-2024 Tobacco smoking status NHIS Never smoked tobacco [facility] Start: 06-13-2023 End: 01-06-2024 Tobacco use and exposure Smokeless tobacco non-user [facility] Start: 07-11-2023 End: 08-12-2023 History of Social function [facility] Start: 07-11-2023 End: 08-12-2023 Tobacco use panel [facility] Adolescent depressio n screening assessment 0 [facility] Start: 1950 Sex Assigned At Not on file P [facility] Start: 04-14-2024 Alcoholic beverage intake Lifetime non-drinker (finding) [facility] Within the last year , have you been afraid of your partner or ex-partner? No [facility] Are you now , , , , never or living with a partner? [facility] How often to you hav e a drink containing alcohol? Never [facility] How hard is it for you to pay for the very basics like food, housing, medical care, and heating Not very hard [facility] Do you feel stress - tense, restless, nervous, or anxious, or unable to sleep at night because your mind is troubled all the time - these days [OSQ] Very much [facility] (I/We) worried whether (my/our) food would run out before (I/we) got money to buy more. Never true [facility] NEGATED: Highlighted rowStart: NINF History of tobacco use Passive smoker [facility] History of Present illness Narrative 10-16-2023 Mirza Hillsinson, AUD - 10/16/2023 10:00 AM EST Note Date & Type Note Facility 10-16-2023 History of Presen t illness Narrative VNG Report Name: Kevon Cartagena Beth : 1950 Date: 10/16/2023 Referring Physician: Lashell Harley MD History: Kevon Cartagena Beth, a 73 y.o. female, was seen today in the [facility] Audiology Department for VNG testing. She was [...] any medications. A hearing test completed at [facility] on 10/16/23 revealed normal sloping to mild [...] completed successfully [employer]: WNL Head Shake: negative Vanna-Hallpike: Rotary nystagmus was not recorded, a lightheaded [...] questions, our office can be contacted at [phone]. Jenn Tomlin [facility]A Co Founder documented in this encounter [facility] History of Present illness Narrative 10-16-2023 SUKHDEV Tomlin - 10/16/2023 9:15 AM EST Note Date & Type Note Facility 10-16-2023 History of Present illness Narrative Summary: Hearing Test 10/16/23 Hearing Evaluation Report Patient: Kevon Campos : 1950 Date: 10/16/2023 Referring Physician: Lashell Harley MD Case History: Kevon Campos, a 73 y.o. female, was seen today in the [facility] Audiology Department for a hearing evaluation. She [...] 250-1000 Hz sloping to mild to severe 3601-3088 Hz sensorineural hearing loss in the right ear. Results for the left ear revealed normal hearing sensitivity 250-500 Hz sloping to mild to profound 8743-6347 Hz sensorineural hearing loss. Speech hr receptionist thresholds were in fair agreement with [...] as warranted by Lashell Harley MD. See VNG note for further vestibular testing. Due to [...] questions, our office can be contacted at [phone]. Jenn Tomlin [facility]A Co Founder documented in this encounter [facility] Clinical Note 11-10-2021 Note Date & Type Note Facility 11-10-2021 Note PROCEDURE: [employer] Sign[employer] HDXT 1.5 Sagittal T1, T2, STIR [...] signed by Michael Cristina on 11/10/2021 1522 [facility] Executive Creative Director Evaluation note Note Date & Type Note Facility Evaluation note [facility] Evaluation note Note Date [...] & Type Note Facility Evaluation note Diagnosis Primary hypertension (CMS/HCC) Unspecified essential hypertension documented in this encounter [facility] Evaluation note Note Date & Type Note Facility Evaluation note Diagnosis Mild intermittent asthma with status asthmaticus (CMS/HCC)- Primary Primary hypertension (CMS/HCC) Unspecified essential hypertension MCI (mild cognitive impairment) with memory loss Mild cognitive impairment, so stated Screening mammogram, encounter for Hyperlipidemia, unspecified hyperlipidemia type (CMS/HCC)- Primary Primary hypertension (CMS/HCC) Unspecified essential hypertension Mild intermittent asthma with status asthmaticus (CMS/HCC) Hypothyroidism, unspecified type (CMS/HCC) Dyslipidemia (CMS/HCC) Other and unspecified hyperlipidemia 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) Dyslipidemia (CMS/HCC)- Primary Other and unspecified hyperlipidemia Encounter for screening for malignant neoplasm of colon 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) Mild intermittent asthma with status asthmaticus (CMS/HCC) 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)- Primary Primary hypertension (CMS/HCC) Unspecified essential hypertension Dyslipidemia (CMS/HCC) Other and unspecified hyperlipidemia 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)- Primary documented in this encounter [facility] Instructions Note Date & Type Note Facility [...] FoundNo Family History Records Found Advance Directives Advance Directive Response Recorded Date/ Time Advance Directives No August 9:55am Chief Complaint and Reason for Visit Chief Complaint G31.84 Additional Source Comments INFORMATION SOURCE (unrecogn ized section and content) DATE CREATED AUTHOR 11/11/2021 [facility] Me dical Specialist DATE CREATED AUTHOR AUTHOR'S ORGANIZ ATION 12/21/2022 [facility] DATE CREATED AUTHOR AUTHOR'S ORGANIZ ATION 09/08/2023 [facility] DATE CREATED AUTHOR AUTHOR'S ORGANIZ ATION 10/20/2023 [facility] DATE CREATED AUTHOR AUTHOR'S ORGANIZ ATION 04/16/2024 [facility] dical Specialists EPIC DATE CREATED AUTHOR AUTHOR'S ORGANIZ ATION 08/11/2024 [facility] Care Teams (unrecognized sec tion and content) Team Status: Active Member Role Status Dates Shaikh Elder MD Primary Care Provider Active Team Status: Inactive Member Role Status Dates Shaikh Elder MD Primary Care Provider Active Jorge Ladd DO Attending Provider Active [employer] Relationship Specialty Start Date End Date Shaikh Fisher MD [address] [place] [address] PCP - General Internal Medicine 09/26/23 [employer] Relationship Specialty Start Date End Date Shaikh Fisher MD [address] [place] [address] PCP - General Internal Medicine 09/26/23 [employer]ricator Relationship Specialty Start Date End Date Shaikh Fisher MD [address] [place] [address] PCP - Devoted 09/16/23 Navneet Vanegas MD [address] [place] [phone] PCP - General Family Medicine 05/26/24 Duyen Urbano NP [address] [place] [phone] Nurse Practitioner Family Medicine 05/26/24 [employer] Relationship Specialty Start Date End Date Shaikh Fisher MD [address] [place] [phone] PCP - Devoted 09/16/23 Navneet Vanegas MD [address] [place] [phone] PCP - General Family Medicine 05/26/24 Duyen Urbano NP [address] [place] [phone] Nurse Practitioner [facility] Medicine 05/26/24 Goals (unrecognized section and content) Goals may be documented in a n alternate sectionNot on filedocumented as of this encounterNot on filedocumented as of this encounter Reason for Visit (unrecogniz ed section and content) Reason Comments Dizziness Tinnitus Specialty Diagnoses / Procedures Referred By Contalpa t Referred To Contact Diagnoses Giddiness Procedures Comprehensive hearing test Lashell Harley MD [address] [place] [address] Referral ID Status Reason Start Date Expiration Date V isits Requested Visits Authorized [id number] Pending Review 08/01/2023 07/31/2024 1 1 Reason Comments Dizziness Specialty Diagnoses / Procedures Referred By Contalpa t Referred To Contact Diagnoses Dizziness and giddiness Procedures VNG Lashell Harley MD [address] [place] [address] Referral ID Status Reason Start Date Expiration Date V isits Requested Visits Authorized [id number] Pending Review 08/01/2023 07/31/2024 1 1 Reason Onset Date Comments Med Refill 06/15/2024 FOR RECORDS PERTAINING TO PATIENTS WHO ARE [...] BE BASED ON THE PRIMARY CLINICAL RECORDS. [facility] [employer] [facility]. provides no warranty or guarantee of the accuracy or completeness of information in this document.
--- NOTE | 2024-10-02 08:24 | ED_ITS ---
HPI HPI - General Adult General Chief complaint: Upper Respiratory Infection Stated complaint: FEVER, EAR PAIN Time Seen by Provider: 10/02/24 08:17 Source: patient Mode of arrival: walk-in Limitations: no limitations History of Present Illness HPI narrative: The patient is coming to the ER with 2 days history of left ear pain, ear pain associated with some low-grade fever at home she has been exposed to her grandkids who had similar symptoms No cough difficulty breathing or nausea or vomiting or diarrhea, Related Data Home Medications ?Medication ?Instructions ?Recorded ?Confirmed atorvastatin 20 mg tablet 20 mg PO DAILY 06/30/24 06/30/24 losartan 50 mg tablet 50 mg PO DAILY 06/30/24 06/30/24 quetiapine 25 mg tablet 25 mg PO BEDTIME 06/30/24 06/30/24 mirtazapine 7.5 mg tablet 7.5 mg PO .every night 10/02/24 10/02/24 risperidone 0.5 mg tablet 0.5 mg PO BID 10/02/24 10/02/24 Previous Rx's ?Medication ?Instructions ?Recorded acetaminophen 650 mg 650 mg PO Q8H PRN fever or pain 10/02/24 tablet,extended release (Tylenol 8 #20 tabs Hour) amoxicillin 875 mg-potassium 1 tab PO Q12H #14 tabs 10/02/24 clavulanate 125 mg tablet Allergies Allergy/AdvReac Type Severity Reaction Status Date / Time No Known Drug Allergies Allergy Verified 07/12/23 18:52 Opioid HPI Opioid Management Most Recent Opioid Data: Last Pain Scale 6 06/30/24 04:48 06/30/24 Ur Phencyclidine Scrn Negative (NEGATIVE) 06/29/24 16:35 06/16 01/07 Review of Systems ROS Status of ROS 10 or more systems reviewed and unremark able except as noted in history and below PFSH PFSH Social History Little interest or pleasure in doing things: not at all Feeling down, depressed, or hopeless: not at all Exam Narrative Exam Narrative: Nurses notes and vital signs reviewed and patient is not hypoxic. General: Well-appearing and in no apparent distress. Skin: Warm, dry, no pallor noted. No rash. Head: Normocephalic, atraumatic. Neck: Supple, non-tender. Eye: Pupils are equal, round and EOMI. No scleral icterus. Ears, Nose, Mouth, and Throat: Right ear examination was benign left leg examination showed that the patient have erythema of the tympanic membrane with serous fluid behind, no nasal mucosal hypertrophy. Oral mucosa is moist, no posterior oropharynx erythema, uvula is mid-line Cardiovascular: Regular Rate and Rhythm without murmur, gallop or rub. Respiratory: No accessory muscle use or respiratory distress. Lungs are clear to auscultation, no wheezing, rales or rhonchi Chest Wall: no tenderness Back: No midline thoracic or lumbar vertebral tenderness. No CVA tenderness Musculoskeletal: normal ROM, no calf or popliteal tenderness, no lower extremity edema/swelling GI: Abdomen is soft, non-distended. Normal bowel sounds. No masses appreciated. No tenderness to palpation. No rebound, guarding, or rigidity noted. Neurological: A&O x4. No cranial nerve dysfunction observed. No truncal ataxia. Moves all extremities. Sensation intact. Psychiatric: Cooperative and interactive. Normal mood and affect. Constitutional Vital Signs, click to edit/add: Last Vital Signs Temp 98.7 F 10/02/24 08:09 Pulse 97 H 10/02/24 08:09 Resp 18 10/02/24 08:09 BP 159/84 H 10/02/24 08:09 Pulse Ox 98 10/02/24 08:09 O2 Del Method Room Air 10/02/24 08:09 Course Vital Signs Vital signs: Vital Signs Temperature 98.7 F 10/02/24 08:09 Pulse Rate 97 H 10/02/24 08:09 Respiratory Rate 18 10/02/24 08:09 Blood Pressure 159/84 H 10/02/24 08:09 Pulse Oximetry 98 10/02/24 08:09 Oxygen Delivery Method Room Air 10/02/24 08:09 Temperature 98.7 F 10/02/24 08:09 Pulse Rate 97 H 10/02/24 08:09 Respiratory Rate 18 10/02/24 08:09 Blood Pressure 159/84 H 10/02/24 08:09 Pulse Oximetry 98 10/02/24 08:09 Oxygen Delivery Method Room Air 10/02/24 08:09 Medical Decision Making MDM Narrative Medical decision making narrative: The patient right now definitely have otitis media of the left ear she was started on Augmentin for that The COVID test all came positive and she was instructed on hydration fever control The patient is to follow up with primary care physician in next 2-3 days or to return to the emergency department should any of the signs or symptoms worsen or new symptoms develop. The patient agrees with the following Diagnosis and Treatment plan and the patient will be discharged home. Lab Data Labs: Lab Results 10/02/24 Range/Units 08:15 Influenza Type A Ag Negative Influenza Type B Ag Negative SARS-CoV-2 Ag (CV2AG) Positive A (NEGATIVE) Discharge Plan Discharge Chief Complaint: Upper Respiratory Infection Clinical Impression: Otitis media, COVID-19 Patient Disposition: Home, Self-Care Time of Disposition Decision: 08:18 Condition: Good Prescriptions / Home Meds: New amoxicillin-pot clavulanate 875-125 mg tablet 1 tab PO Q12H Qty: 14 0RF acetaminophen [Tylenol 8 Hour] 650 mg tablet extended release 650 mg PO Q8H PRN (Reason: fever or pain) Qty: 20 0RF No Action losartan 50 mg tablet 50 mg PO DAILY quetiapine 25 mg tablet 25 mg PO BEDTIME atorvastatin 20 mg tablet 20 mg PO DAILY mirtazapine 7.5 mg tablet 7.5 mg PO .every night risperidone 0.5 mg tablet 0.5 mg PO BID Print Language: Turkmen Instructions: Ear Infection (ED), COVID-19 (Coronavirus Disease 2019) (ED) Referrals: DOMINIQUE GARCIA [Primary Care Provider] - 1 week
[2024-10-02 08:44] LABS: Influenza Virus A Antigen Negative; Influenza Virus B Antigen Negative; Internal Control Within Normal Limits
[2024-10-02 08:46] LABS: SARS-CoV-2 Ag POSITIVE (NEGATIVE)
== END 2024-10-02 09:02 | disposition home or self-care (01) ==
PROVIDERS: Emergency Provider Emergency Medicine
DX: U07.1 COVID-19 (principal); H66.92 Otitis media, unspecified, left ear
CPT/HCPCS: 87804; 87811; 99283

== ENCOUNTER 2024-11-02 18:18 | Emergency (ER) | payer OTHER, SELFPAY ==
[2024-11-02 18:22] VITALS: BP 147/84; PULSE 67; TEMP 36.6; O2SAT 99; BMI 30.1
--- OUTSIDE RECORDS SUMMARY | 2024-11-02 18:26 | XMS_ITS | CCD ---
Author Organization [facility] Inform ion [facility] Care Team Providers Care Gem Cutter Name Role Phone DR ONUR SOLANO Consulting Unavailable FAWWAD, SANDERS H Attending Unavailable FAWWAD, SANDERS H Primary Care Unavailable FAWWAD, SANDERS H Admitting Unavailable FAWWAD, SANDERS H Consulting Unavailable FAWWAD, SANDERS H Attending Unavailable DR CARLOS KEMP V Consulting Unavailable FAWWAD, SANDERS H Primary Care Unavailable FAWWAD, SANDERS H Admitting Unavailable FAWWAD, SANDERS H Consulting Unavailable AICHHOLZ, SUPERVISOR [employer] Consulting Unavailable AICHHOLZ, SUPERVISOR [employer] Admitting Unavailable AICHHOLZ, SUPERVISOR [employer] Attending Unavailable FAWWAD, SANDERS H Primary Care Unavailable DR ONUR SOLANO Consulting Unavailable FAWWAD, SANDERS H Attending Unavailable FAWWAD, SANDERS H Primary Care Unavailable FAWWAD, SANDERS H Admitting Unavailable FAWWAD, SANDRES H Attending Unavailable FAWWAD, SANDERS H Primary [...] Unavailable DR ONUR SOLANO Consulting Unavailable AICHHOLZ, SUPERVISOR [employer] Consulting Unavailable AICHHOLZ, SUPERVISOR [employer] Admitting Unavailable AICHHOLZ, SUPERVISOR [employer] Attending Unavailable FAWWAD, SANDERS Primary Care Unavailable DR ONUR SOLANO Consulting Unavailable MD Chad Fisher Primary Care Provider [phone] DO Jorge Ladd Attending Provider Shaikh Fisher Primary Care Unavailable Jorge Ladd Attending Unavailable Jorge Ladd Admitting Unavailable LONI BRITT Attending Unavailable PUMA ROCHA Referring Unavailable BARRY FISHERIKH Primary Care Unavailable LONI BRITT Attending Unavailable PUMA ROCHA Referring Unavailable BARRY FISHERIKH Primary Care Unavailable DOREEN, AISLINN S Referring Unavailable HOQI Schumacher Primary Care Unavailable DOREEN, AISLINN S Referring Unavailable QI ANDRADE M Primary Care Unavailable DOREEN AISLINN S Referring Unavailable QI ANDRADE Primary Care Unavailable JORGE LADD Attending Unavailable JORGE LADD Referring Unavailable SHAIKH FISHER Primary Care Unavailable Shaikh Fisher MD Unavailable Navneet Vanegas MD Primary Care Provider [phone] Duyen Urbano NP Unavailable Qi Andrade MD Primary Care Provider [phone] DUYEN URBANO Attending Unavailabl e SHAIKH FISHER Attending Unavailable SHAIKH FISHER Attending Unavailable Allergies Allergy Classification Reported Allergen(s) Allergy Type Date of Onset Reaction(s) Facility (1 source) Acetaminophen / oxyCODONE Drug Allergy 3 [facility] Repository (1 source) Morphine Drug Allergy 3 [facility] (7 sources) Acetaminophen / oxyCODONE; Translations: [OXYCODONE-ACETAM INOPHEN] Drug Allergy 4 Itching [facility] Repository (2 sources) Adhesive agent; Translations: [ADHESIVE] Propensity to adverse reactions to drug (disorder) 4 [facility] Repository (5 sources) Morphine Drug Allergy 3 Itching [facility] Healthcare Work Phone: (5 sources) Wound Dressing Adhesive Drug Intolerance 4 [facility] Medications Current Medications Medication Drug Class(es) Dates Sig (Normalized) Sig (Original) [id number] 200 actuat albuterol 0.09 mg/actuat metered dose inhaler (5 sources) beta2-Adrenergic Agonist Start: 02-12-2024 take 2 puff(s) by mouth every six hours as needed albuterol HFA 90 mcg/act inhaler Indications: Mild intermittent asthma with status asthmaticus (CMS/HCC) INHALE 2 PUFFS BY MOUTH EVERY 6 HOURS NEEDED FOR SHORTNESS OF BREATH 9 g 02/12/2024 Active amoxicillin 875 mg / clavulanate 125 mg oral tablet (2 sources) Penicillin-class Antibacterial take 1 tablet by mouth in the morning amoxicillin-clavul anate (Augmentin) 875-125 MG tablet Take 875 mg by mouth in the morning and 875 mg before bedtime. Active atorvastatin 20 mg oral tablet (7 sources) HMG-CoA Reductase Inhibitor Start: 04-14-2024 End: 01-10-2025 take 1 tablet by mouth once daily atorvastatin (Lipitor) 20 MG tablet Indications: Dyslipidemia (CMS/HCC) Take 1 tablet (20 mg) by mouth Daily 90 tablet 10/12/2024 01/10/2025 Active losartan potassium 50 mg oral tablet (8 sources) Angiotensin 2 Receptor Shari Start: 04-14-2024 End: 01-10-2025 take 1 tablet by mouth once daily losartan (Cozaar) 50 MG tablet Indications: Hypertension Take 1 tablet (50 mg) by mouth Daily 90 tablet 10/12/2024 01/10/2025 Active mirtazapine 7.5 mg oral tablet (8 sources) Start: 09-02-2024 End: 01-04-2025 take 1 tablet by mouth at bedtime mirtazapine (Remeron) 7.5 MG tablet Indications: 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) Take 1 tablet (7.5 mg) by mouth at bedtime 90 tablet 09/29/2024 10/12/2024 Discontinued QUEtiapine 25 mg oral tablet (4 sources) Atypical Antipsychotic Start: 04-14-2024 End: 10-12-2024 take 1 tablet by mouth at bedtime QUEtiapine (SEROquel) 25 MG tablet Indications: 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) Take 1 tablet (25 mg) by mouth at bedtime 90 tablet 04/14/2024 10/12/2024 Discontinued (Discontinued by another clinician) risperiDONE 0.5 mg oral tablet (7 sources) Atypical Antipsychotic Start: 08-05-2024 End: 11-05-2024 take 1 tablet by mouth in the morning risperiDONE (RisperDAL) 0.5 MG tablet Indications: Behavioral Disorders associated with Dementia Take 1 tablet (0.5 mg) by mouth in the morning and 1 tablet (0.5 mg) before bedtime. 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; Translations: [Alzheimer's disease with early onset] Onset: 4 09-26-2023 Chronic Disorders of lipid metabolism (8 sources) Hyperlipidemia, unspecified; Translations: [Dyslipidemia] Onset: 2 08-12-2023 Chronic Essential hypertension (10 sources) Essential (primary) hypertension; Translations: [Essential hypertension] Onset: 4 06-15-2024 Chronic Fever of unknown origin (2 sources) Fever, unspecified; Translations: [FEVER UNSPECIFIED] Onset: 3 Episodic Mood disorders (5 sources) Depressive disorder; Translations: [Depression] Onset: 3 06-27-2023 Chronic Nausea and vomiting (4 sources) Nausea with vomiting, unspecified; Translations: [NAUSEA WITH VOMITING UNSPECIFIED] Onset: 3 Episodic Osteoarthritis (14 sources) Unilateral primary osteoarthritis, right hip; Translations: [Arthritis of left acromioclavicular joint] Onset: 2 Chronic Other aftercare (1 source) 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; Translations: [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/PRODUCTION MANAGER IMAGING CURRENT USE OF ASPIRIN] Onset: 3 Episodic Other gastrointestinal disorders (1 source) Diarrhea, unspecified; Translations: [DIARRHEA UNSPECIFIED] Onset: 3 Episodic Other hereditary and degenerative nervous system conditions (6 sources) Mild cognitive impairment, so stated; Translations: [Mild cognitive impairment, so stated] Onset: 3 06-27-2023 Chronic Spondylosis; intervertebral disc disorders; other back problems (2 sources) Other cervical disc degeneration, high cervical region; Translations: [Other intervertebral disc degeneration, lumbar region] Onset: 2 Chronic Thyroid disorders (5 sources) Hypothyroidism; Translations: [Hypothyroidism, unspecified] Onset: 3 06-27-2023 Chronic Unclassified (1 source) CONTACT W/AND (SUSP) EXPOS COVID-19; Translations: [CONTACT W/AND (SUSP) EXPOS COVID-19] Onset: 3 Unclassified (1 source) Mild cognitive impairment of uncertain or unknown etiology; Translations: [Mild cognitive impairment of uncertain or unknown etiology] Onset: 3 Viral infection (4 sources) Disease caused by 2019-nCoV; Translations: [COVID-19] Onset: 5 10-12-2024 Episodic Past or Other Problems Problem Classification Problem Date Documented Da te Episodic/Chronic Conditions associated with dizziness or vertigo (6 sources) Dizziness and giddiness; Translations: [Dizziness] Onset: 06-27-2023 06-27-2023 Episodic Heart valve disorders (6 sources) Cardiac murmur, unspecified; Translations: [Heart murmur] Onset: 09-02-2022 06-27-2023 Episodic Mood disorders (5 sources) Mood disorders Onset: 01-06-2024 01-06-2024 Nonspecific chest pain (4 sources) Chest pain, unspecified; Translations: [CHEST PAIN UNSPECIFIED] Onset: 08-29-2022 Episodic Nutritional deficiencies (5 sources) Cobalamin deficiency; Translations: [Deficiency of other specified B group vitamins] Onset: 07-11-2023 08-12-2023 Episodic Other circulatory disease (5 sources) Low blood pressure; Translations: [Hypotension, unspecified] Onset: 05-15-2014 06-27-2023 Episodic Other injuries and conditions due to external causes (4 sources) History of falling; Translations: [HISTORY OF FALLING] Onset: 07-12-2022 Episodic Other lower respiratory disease (1 source) Shortness of breath; Translations: [SHORTNESS OF BREATH] Onset: 09-02-2022 Episodic Other non-traumatic joint disorders (5 sources) Pain in left shoulder; Translations: [Pain in joint, shoulder region] Onset: 06-27-2023 06-27-2023 Episodic Other nutritional; endocrine; and metabolic disorders (4 sources) Overweight; Translations: [OVERWEIGHT] Onset: 09-04-2022 Episodic Other screening for suspected conditions (not mental disorders or infectious disease) (5 sources) Patient encounter status; Translations: [Encounter for screening mammogram for malignant neoplasm of breast] Onset: 08-12-2023 08-12-2023 Episodic Residual codes; unclassified (1 source) Family history of ischemic heart disease and other diseases of the circulatory system; Translations: [FAM HX ISCHEMIC HRT DZ OTH DZ CIRC] Onset: 09-02-2022 Episodic Residual codes; unclassified (5 sources) Confusional state; Translations: [Disorientation, unspecified] Onset: 07-31-2023 07-31-2023 Episodic Spondylosis; intervertebral disc disorders; other back problems (1 source) Cervicalgia; Translations: [CERVICALGIA] Onset: 09-12-2022 Episodic Results Test Name Value Interpretation Reference Range Facility URINALYSISon 08-08-2024 Amorphous sediment LM Ql (Urine sed) PRESENT Abnormal NONE [facility] Comment on above: Performed By: #### C BCA, HA1C, CMP, 40024-0, THYR, 3051-0 #### [facility] ([id number]) [address], [address] [place] [address] Bilirubin Ql (U) Negative Normal NEG [facility] Comment on above: Performed By: #### C BCA, HA1C, CMP, 77804-6, THYR, 3051-0 #### [facility] ([id number]) [address], [address] [place] [address] BLOOD/HGB Negative Normal NEG [facility] Comment on above: Performed By: #### C BCA, HA1C, CMP, 11001-9, THYR, 3051-0 #### [facility] ([id number]) [address], [address] [place] [address] Color (U) YELLOW Normal YELLOW [facility] Comment on above: Performed By: #### C BCA, HA1C, CMP, 97692-7, THYR, 3051-0 #### [facility] ([id number]) [address], [address] [place] [address] Glucose Ql (U) Negative Normal NEG [facility] Comment on above: Performed By: #### C BCA, HA1C, CMP, 29646-1, THYR, 3051-0 #### [facility] ([id number]) [address], [address] [place] [address] Ketones Ql (U) Trace Abnormal NEG [facility] Comment on above: Performed By: #### C BCA, HA1C, CMP, 10291-1, THYR, 3051-0 #### [facility] ([id number]) [address], [address] [place] [address] Leukocyte esterase Test strip Ql (U) Negative Normal NEG [facility] Comment on above: Performed By: #### C BCA, HA1C, CMP, 19527-7, THYR, 3051-0 #### [facility] ([id number]) [address], [address] [place] [address] Nitrite Ql (U) Negative Normal NEG [facility] Comment on above: Performed By: #### C BCA, HA1C, CMP, 32737-3, THYR, 3051-0 #### [facility] ([id number]) [address], [address] [place] [address] pH (U) 6.0 [pH] Normal 5.0-8.5 [facility] Comment on above: Performed By: #### C BCA, HA1C, CMP, 54068-0, THYR, 3051-0 #### [facility] ([id number]) [address] [address] [place] [address] Protein Ql (U) 30 mg/dL Abnormal NEG [facility] Comment on above: Performed By: #### C BCA, HA1C, CMP, 17716-4, THYR, 3051-0 #### [facility] ([id number]) [address], [facility] [address] [place] [address] R.B.CELLS 0 /hpf Normal 0-5 [facility] Comment on above: Performed By: #### C BCA, HA1C, CMP, 73984-5, THYR, 3051-0 #### [facility] ([id number]) [address], [facility] [address] [place] [address] Specific gravity (U) [Rel density] 1.020 Normal 1.003-1.035 [facility] Comment on above: Performed By: #### C BCA, HA1C, CMP, 69907-8, THYR, 3051-0 #### [facility] ([id number]) [address], [facility] [address] [place] [address] TURBIDITY HAZY Abnormal CLEAR [facility] Comment on above: Performed By: #### C BCA, HA1C, CMP, 56291-2, THYR, 3051-0 #### [facility] ([id number]) [address], [facility] [address] [place] [address] URIC ACID CRYSTALS PRESENT Abnormal NONE [facility] Comment on above: Performed By: #### C BCA, HA1C, CMP, 84477-8, THYR, 3051-0 #### [facility] ([id number]) [address], [address] [place] [address] Urobilinogen Qn (U) 0.2 {Quan'U}/dL Normal <1.1 [facility] Comment on above: Performed By: #### C BCA, HA1C, CMP, 95246-3, THYR, 305-0 #### [facility] ([id number]) [address] [address] W.B.CELLS 20 /hpf High 0-5 [facility] Comment on above: Performed By: #### C BCA, HA1C, CMP, 50524-0, THYR, 305-0 #### [facility] ([id number]) [address], [address] [address] WBC CASTS 1 /lpf High 0 [facility] Comment on above: Performed By: #### C BCA, HA1C, CMP, 16440-6, THYR, 305-0 #### [facility] ([id number]) [address], [address] [address] URINE CULTUREon 08-08-2024 Bacteria identified Cx Nom (U) CULTURE RESULTS <10,000 ORGANISMS/ML NORMAL URO GENITAL DELMY Normal [facility] Comment on above: Performed By: #### C BCA, HA1C, CMP, 33131-3, THYR, 305-0 #### [facility] ([id number]) [address] [address] [place] [address] CBC AND AUTO DIFFon 08-05-20 24 Band form neutrophils/100 WBC (Bld) 38.0 % Normal [facility] Comment on above: Performed By: #### C MP, CBCA #### [facility] ([id number]) [address] [address] [place] [address] Erythrocyte distribution width (RBC) [Ratio] 13.6 % Normal 11.5-15.0 [facility] Comment on above: Performed By: #### C MP, CBCA #### [facility] ([id number]) [address] [address] [place] [address] Hematocrit (Bld) [Volume fraction] 37.6 % Normal 35-47 [facility] Comment on above: Performed By: #### C MP, CBCA #### [facility] ([id number]) [address], [facility] [address] [place] [address] Hemoglobin (Bld) [Mass/Vol] 13.2 g/dL Normal 11.7-15.5 [facility] Comment on above: Performed By: #### C MP, CBCA #### [facility] ([id number]) [address] [address] [place] [address] Lymphocytes (Bld) [#/Vol] 0.5 10*3/uL Low 1.0-3.5 [facility] Comment on above: Performed By: #### C DARINEL, CBCA #### [facility] ([id number]) [address] [address] [place] [address] Lymphocytes/100 WBC (Bld) 10.0 % Normal [facility] Comment on above: Performed By: #### C MP, CBCA #### [facility] ([id number]) [address], [facility] [address] [place] [address] MCH (RBC) [Entitic mass] 32.8 pg Normal 27-34 [facility] Comment on above: Performed By: #### C MP, CBCA #### [facility] ([id number]) [address], [address] [place] [address] MCHC (RBC) [Mass/Vol] 35.1 g/dL Normal 32-36 [facility] Comment on above: Performed By: #### C MP, CBCA #### [facility] ([id number]) [address] [address] [place] [address] MCV (RBC) [Entitic vol] 94 fL Normal 80-100 [facility] Comment on above: Performed By: #### C MP, CBCA #### [facility] ([id number]) [address], [address] [place] [address] Metamyelocytes/100 WBC (Bld) 2.0 % Normal [facility] Comment on above: Performed By: #### C MP, CBCA #### [facility] ([id number]) [address], [address] [place] [address] Monocytes (Bld) [#/Vol] 0.6 10*3/uL Normal 0-0.9 [facility] Comment on above: Performed By: #### C MP, CBCA #### [facility] ([id number]) [address], [address] [place] [address] Monocytes/100 WBC (Bld) 11.0 % Normal [facility] Comment on above: Performed By: #### C MP, CBCA #### [facility] ([id number]) [address], [address] [place] [address] NEUTROPHIL VACUOLES 1+ Abnormal NONE [facility] Comment on above: Performed By: #### C MP, CBCA #### [facility] ([id number]) [address], [address] [place] [address] Neutrophils (Bld) [#/Vol] 4.1 10*3/uL Normal 1.5-6.6 [facility] Comment on above: Performed By: #### C MP, CBCA #### [facility] ([id number]) [address], [address] [place] [address] Platelet mean volume (Bld) [Entitic vol] 9.8 fL Normal 7-12 [facility] Comment on above: Performed By: #### C MP, CBCA #### [facility] ([id number]) [address], [address] [place] [address] Platelets (Bld) [#/Vol] 170 10*3/uL Normal 150-450 [facility] Comment on above: Performed By: #### C MP, CBCA #### [facility] ([id number]) [address], [address] [place] [address] RBC COUNT 4.01 X10E12/L Normal 3.80-5.20 [facility] Comment on above: Performed By: #### C MP, CBCA #### [facility] ([id number]) [address], [address] [place] [address] SEG NEUTROPHIL 39.0 % Normal [facility] Comment on above: Performed By: #### C MP, CBCA #### [facility] ([id number]) [address], [facility] [address] [place] [address] WBC (Bld) [#/Vol] 5.3 10*3/uL Normal 4.0-11.[address] [facility] Comment on above: Performed By: #### C MP, CBCA #### [facility] ([id number]) [address], [address] [place] [address] COMPREHENSIVE METABOLIC PANE Abhishek 08-05-2024 Albumin [Mass/Vol] 3.9 g/dL Normal 3.2-5.[address] [facility] Comment on above: Performed By: #### C MP, CBCA #### [facility] ([id number]) [address], [address] [place] [address] ALP [Catalytic activity/Vol] 61 U/L Normal 39-130 [facility] Comment on above: Performed By: #### C MP, CBCA #### [facility] ([id number]) [address], [address] [place] [address] ALT [Catalytic activity/Vol] 23 U/L Normal 0-31 [facility] Comment on above: Performed By: #### C MP, CBCA #### [facility] ([id number]) [address], [address] [place] [address] Anion gap [Moles/Vol] 13 mmol/L Normal 5-15 [facility] Comment on above: Performed By: #### C DARINEL CBCA #### [facility] ([id number]) [address], [address] [place] [address] AST [Catalytic activity/Vol] 46 U/L High 0-41 [facility] Comment on above: Performed By: #### C DARINEL CBCA #### [facility] ([id number]) [address], [address] [place] [address] Bilirubin [Mass/Vol] 1.1 mg/dL Normal 0.3-1.2 [facility] Comment on above: Performed By: #### C DARINEL CBCA #### [facility] ([id number]) [address], [address] [place] [address] Calcium [Mass/Vol] 9.1 mg/dL Normal 8.5-10.[address] [facility] Comment on above: Performed By: #### C DARINEL CBCA #### [facility] ([id number]) [address], [address] [place] [address] Chloride [Moles/Vol] 99 mmol/L Normal 98-109 [facility] Comment on above: Performed By: #### C DARINEL CBCA #### [facility] ([id number]) [address], [address] [place] [address] CO2 [Moles/Vol] 21 mmol/L Low 22-32 [facility] Comment on above: Performed By: #### C DARINEL CBCA #### [facility] ([id number]) [address], [address] [place] [address] Creatinine [Mass/Vol] 1.29 mg/dL High 0.40-1.00 [facility] Comment on above: Result Comment: METH OD TRACEABLE TO IDMS STANDARD Performed By: #### C DARINEL CBCMitzi #### [facility] ([id number]) [address], [address] [place] [address] GFR/1.73 sq M.predicted among non-blacks MDRD (S/P/Bld) [Vol rate/Area] 44 mL/min/{1.73_m2} Low >59 [facility] Comment on above: Result Comment: Reported eGFR is based on the CKD-EPI 2020 equation that does not use a race coefficient. Performed By: #### C DARINEL CBCA #### [facility] ([id number]) [address], [address] [place] [address] Glucose [Mass/Vol] 175 mg/dL High 65-[address] [facility] Comment on above: Performed By: #### C DARINEL CBCA #### [facility] ([id number]) [address], [address] [place] [address] Potassium [Moles/Vol] 3.3 mmol/L Low 3.5-5.0 [facility] Comment on above: Performed By: #### C DARINEL CBCA #### [facility] ([id number]) [address], [address] [place] [address] Protein [Mass/Vol] 7.0 g/dL Normal 6.0-8.[address] [facility] Comment on above: Performed By: #### C DARINEL CBCA #### [facility] ([id number]) [address], [address] [place] [address] Sodium [Moles/Vol] 133 mmol/L Low 134-[address] [facility] Comment on above: Performed By: #### C DARINEL CBCA #### [facility] ([id number]) [address], [address] [place] [address] Urea nitrogen [Mass/Vol] 20 mg/dL Normal 5-27 [facility] Comment on above: Performed By: #### C DARINEL CBCA #### [facility] ([id number]) [address], [address] [place] [address] CBC AND AUTO DIFFon 07-23-20 24 ABSOLUTE BASOPHIL 0.0 X10E9/L Normal 0.0-0.[address] [facility] Comment on above: Performed By: #### C BCA, HA1C, CMP, 88596-7, THYR, 3051-0 #### [facility] ([id number]) [address], [address] [place] [address] ABSOLUTE NEUTROPHIL 2.4 X10E9/L Normal 1.5-6.6 [facility] Comment on above: Performed By: #### C BCA, HA1C, CMP, 57794-7, THYR, 305-0 #### [facility] ([id number]) [address] [address] [place] [address] Basophils/100 WBC (Bld) 0.7 % Normal [facility] Comment on above: Performed By: #### C BCA, HA1C, CMP, 71341-0, THYR, 305-0 #### [facility] ([id number]) [address] [facility] [address] [place] [address] Eosinophils (Bld) [#/Vol] 0.1 10*3/uL Normal 0.0-0.4 [facility] Comment on above: Performed By: #### C BCA, HA1C, CMP, 22293-2, THYR, 3051-0 #### [facility] ([id number]) [address] [address] [place] [address] Eosinophils/100 WBC (Bld) 2.1 % Normal [facility] Comment on above: Performed By: #### C BCA, HA1C, CMP, 87454-3, THYR, 3051-0 #### [facility] ([id number]) [address], [address] [place] [address] Erythrocyte distribution width (RBC) [Ratio] 13.8 % Normal 11.5-15.0 [facility] Comment on above: Performed By: #### C BCA, HA1C, CMP, 59823-1, THYR, 3051-0 #### [facility] ([id number]) [address], [address] [place] [address] Hematocrit (Bld) [Volume fraction] 35.9 % Normal 35-47 [facility] Comment on above: Performed By: #### C BCA, HA1C, CMP, 09126-9, THYR, 3051-0 #### [facility] ([id number]) [address], [facility] [address] [place] [address] Hemoglobin (Bld) [Mass/Vol] 12.5 g/dL Normal 11.7-15.5 [facility] Comment on above: Performed By: #### C BCA, HA1C, CMP, 35222-3, THYR, 3051-0 #### [facility] ([id number]) [address], [address] [place] [address] Lymphocytes (Bld) [#/Vol] 1.6 10*3/uL Normal 1.0-3.5 [facility] Comment on above: Performed By: #### C BCA, HA1C, CMP, 80000-8, THYR, 3051-0 #### [facility] ([id number]) [address], [address] [place] [address] Lymphocytes/100 WBC (Bld) 34.8 % Normal [facility] Comment on above: Performed By: #### C BCA, HA1C, CMP, 20301-1, THYR, 3051-0 #### [facility] ([id number]) [address], [address] [place] [address] MCH (RBC) [Entitic mass] 33.2 pg Normal 27-34 [facility] Comment on above: Performed By: #### C BCA, HA1C, CMP, 38269-9, THYR, 3051-0 #### [facility] ([id number]) [address], [address] [place] [address] MCHC (RBC) [Mass/Vol] 34.8 g/dL Normal 32-36 [facility] Comment on above: Performed By: #### C BCA, HA1C, CMP, 20505-8, THYR, 3051-0 #### [facility] ([id number]) [address], [facility] [address] [place] [address] MCV (RBC) [Entitic vol] 95 fL Normal 80-100 [facility] Comment on above: Performed By: #### C BCA, HA1C, CMP, 72942-8, THYR, 305-0 #### [facility] ([id number]) [address] [address] [place] [address] Monocytes (Bld) [#/Vol] 0.4 10*3/uL Normal 0-0.9 [facility] Comment on above: Performed By: #### C BCA, HA1C, CMP, 04312-3, THYR, 305-0 #### [facility] ([id number]) [address] [address] [place] [address] Monocytes/100 WBC (Bld) 9.7 % Normal [facility] Comment on above: Performed By: #### C BCA, HA1C, CMP, 29944-2, THYR, 305-0 #### [facility] ([id number]) [address] [address] [place] [address] Neutrophils/100 WBC (Bld) 52.7 % Normal [facility] Comment on above: Performed By: #### C BCA, HA1C, CMP, 59121-8, THYR, 3051-0 #### [facility] ([id number]) [address], [address] [place] [address] Platelet mean volume (Bld) [Entitic vol] 8.6 fL Normal 7-12 [facility] Comment on above: Performed By: #### C BCA, HA1C, CMP, 77644-9, THYR, 3051-0 #### [facility] ([id number]) [address], [address] [place] [address] Platelets (Bld) [#/Vol] 251 10*3/uL Normal 150-450 [facility] Comment on above: Performed By: #### C BCA, HA1C, CMP, 30095-9, THYR, 3051-0 #### [facility] ([id number]) [address], [facility] [address] [place] [address] RBC COUNT 3.76 X10E12/L Low 3.80-5.20 [facility] Comment on above: Performed By: #### C BCA, HA1C, CMP, 69963-7, THYR, 3051-0 #### [facility] ([id number]) [address], [address] [place] [address] WBC (Bld) [#/Vol] 4.6 10*3/uL Normal 4.0-11.[address] [facility] Comment on above: Performed By: #### C BCA, HA1C, CMP, 33530-3, THYR, 3051-0 #### [facility] ([id number]) [address], [address] [place] [address] COMPREHENSIVE METABOLIC PANE Abhishek 07-23-2024 Albumin [Mass/Vol] 4.1 g/dL Normal 3.2-5.[address] [facility] Comment on above: Performed By: #### C BCA, HA1C, CMP, 14737-9, THYR, 3051-0 #### [facility] ([id number]) [address], [address] [place] [address] ALP [Catalytic activity/Vol] 69 U/L Normal 39-130 [facility] Comment on above: Performed By: #### C BCA, HA1C, CMP, 95771-4, THYR, 3051-0 #### [facility] ([id number]) [address], [address] [place] [address] ALT [Catalytic activity/Vol] 9 U/L Normal 0-31 [facility] Comment on above: Performed By: #### C BCA, HA1C, CMP, 24212-2, THYR, 3051-0 #### [facility] ([id number]) [address], [address] [place] [address] Anion gap [Moles/Vol] 9 mmol/L Normal 5-15 [facility] Comment on above: Performed By: #### C BCA, HA1C, CMP, 74792-0, THYR, 3051-0 #### [facility] ([id number]) [address], [address] [place] [address] AST [Catalytic activity/Vol] 18 U/L Normal 0-41 [facility] Comment on above: Performed By: #### C BCA, HA1C, CMP, 35490-7, THYR, 3051-0 #### [facility] ([id number]) [address], [address] [place] [address] Bilirubin [Mass/Vol] 1.1 mg/dL Normal 0.3-1.2 [facility] Comment on above: Performed By: #### C BCA, HA1C, CMP, 48821-3, THYR, 3051-0 #### [facility] ([id number]) [address], [address] [place] [address] Calcium [Mass/Vol] 9.4 mg/dL Normal 8.5-10.[address] [facility] Comment on above: Performed By: #### C BCA, HA1C, CMP, 56664-9, THYR, 3051-0 #### [facility] ([id number]) [address], [address] [place] [address] Chloride [Moles/Vol] 107 mmol/L Normal 98-109 [facility] Comment on above: Performed By: #### C BCA, HA1C, CMP, 15188-3, THYR, 3051-0 #### [facility] ([id number]) [address], [address] [place] [address] CO2 [Moles/Vol] 28 mmol/L Normal 22-32 [facility] Comment on above: Performed By: #### C BCA, HA1C, CMP, 67787-4, THYR, 305-0 #### [facility] ([id number]) [address], [address] [place] [address] Creatinine [Mass/Vol] 0.85 mg/dL Normal 0.40-1.00 [facility] Comment on above: Result Comment: METH OD TRACEABLE TO IDMS STANDARD Performed By: #### C BCA, HA1C, CMP, 21452-2, THYR, 305-0 #### [facility] ([id number]) [address], [address] [place] [address] GFR/1.73 sq M.predicted among non-blacks MDRD (S/P/Bld) [Vol rate/Area] 73 mL/min/{1.73_m2} Normal >59 [facility] Comment on above: Result Comment: Reported eGFR is based on the CKD-EPI 2020 equation that does not use a race coefficient. Performed By: #### C BCA, HA1C, CMP, 22889-8, THYR, 305-0 #### [facility] ([id number]) [address], [address] [place] [address] Glucose [Mass/Vol] 90 mg/dL Normal 65-[address] [facility] Comment on above: Performed By: #### C BCA, HA1C, CMP, 45089-2, THYR, 3051-0 #### [facility] ([id number]) [address], [address] [place] [address] Potassium [Moles/Vol] 4.0 mmol/L Normal 3.5-5.0 [facility] Comment on above: Performed By: #### C BCA, HA1C, CMP, 39532-8, THYR, 3051-0 #### [facility] ([id number]) [address], [address] [place] [address] Protein [Mass/Vol] 6.8 g/dL Normal 6.0-8.[address] [facility] Comment on above: Performed By: #### C BCA, HA1C, CMP, 21739-8, THYR, 3051-0 #### [facility] ([id number]) [address], [address] [place] [address] Sodium [Moles/Vol] 144 mmol/L Normal 134-[address] [facility] Comment on above: Performed By: #### C BCA, HA1C, CMP, 25375-9, THYR, 3051-0 #### [facility] ([id number]) [address], [address] [place] [address] Urea nitrogen [Mass/Vol] 19 mg/dL Normal 5-27 [facility] Comment on above: Performed By: #### C BCA, HA1C, CMP, 49324-0, THYR, 3051-0 #### [facility] ([id number]) [address], [address] [place] [address] FREE T3on 07-23-2024 Free T3 [Mass/Vol] 2.66 pg/mL Normal 2.50-3.[address] [facility] Comment on above: Performed By: #### C BCA, HA1C, CMP, 88679-4, THYR, 3051-0 #### [facility] ([id number]) [address], [address] [place] [address] HGB A1C (GLYCO-HGB)on 2023 Glucose [Mass/Vol] 108 mg/dL Normal [facility] Comment on above: Performed By: #### C BCA, HA1C, CMP, 88451-4, THYR, 3051-0 #### [facility] ([id number]) [address], [address] [place] [address] HbA1c (Bld) [Mass fraction] 5.4 % Normal 4.4-5.6 [facility] Comment on above: Result Comment: NOTE ADA Guidelines Result HgbA1c Normal : less than 5.7 % Prediabetes : 5.7 % to 6.4 % Diabetes : > 6.4 % Use with caution in patients with abnormal hemoglobin variants as the half-life of red blood cells and in vivo glycation rates are affected. Performed By: #### C BCA, HA1C, CMP, 99431-5, THYR, 3051-0 #### [facility] ([id number]) [address] [facility] [place] [address] Insulin Qnon 07-23-2024 INSULIN 7.91 uIU/mL Normal 1.00-23.00 [facility] Comment on above: Result Comment: Ref. range is for FASTING NON-DIABETIC POPULATION. Performed By: #### 2 0448-7 #### [facility] ([id number]) [address] [facility] [place] [address] Lipid 1996 panelon 4 Cholesterol [Mass/Vol] 222 mg/dL High 150-200 [facility] Comment on above: Performed By: #### C BCA, HA1C, CMP, 13023-8, THYR, 3051-0 #### [facility] ([id number]) [address] [facility], [facility] [address] [place] [address] Cholesterol in HDL [Mass/Vol] 67 mg/dL Normal >39 [facility] Comment on above: Result Comment: HDL <40 mg/dL - High Risk HDL > or = 40mg/dL- Desirable HDL >60 mg/dL - Negative Risk Performed By: #### C BCA, HA1C, CMP, 45252-3, THYR, 3051-0 #### [facility] ([id number]) [address], [address] [place] [address] Cholesterol in LDL [Mass/Vol] 138 mg/dL High <130 [facility] Comment on above: Result Comment: LDL <100 mg/dL - Desirable LDL >160 mg/dL - High Risk Performed By: #### C BCA, HA1C, CMP, 07318-4, THYR, 3051-0 #### [facility] ([id number]) [address], [address] [place] [address] Cholesterol in VLDL [Mass/Vol] 17 mg/dL Normal 0-30 [facility] Comment on above: Performed By: #### C BCA, HA1C, CMP, 52812-6, THYR, 3051-0 #### [facility] ([id number]) [address], [address] [place] [address] CHOLESTEROL:HDL 3.3 Normal 1.0-5.0 [facility] Comment on above: Performed By: #### C BCA, HA1C, CMP, 54296-5, THYR, 3051-0 #### [facility] ([id number]) [address], [address] [place] [address] Triglyceride [Mass/Vol] 86 mg/dL Normal 27-150 [facility] Comment on above: Performed By: #### C BCA, HA1C, CMP, 67284-8, THYR, 3051-0 #### [facility] ([id number]) [address] [address] [place] [address] THYROID PROFILEon 07-23-2024 Free T4 [Mass/Vol] 0.72 ng/dL Normal 0.61-1.[address] [facility] Comment on above: Performed By: #### C BCA, HA1C, CMP, 99062-1, THYR, 3051-0 #### [facility] ([id number]) [address] [place] [address] TSH 1.71 uIU/mL Normal 0.49-4.67 [facility] Comment on above: Performed By: #### C BCA, HA1C, CMP, 66437-8, THYR, 3051-0 #### [facility] ([id number]) [address], [address] [place] [address] MR BRAIN WO CONTon MR BRAIN WO [...] Haskins MD on 09/26/2023 7:49 PM Normal [facility] Folate [Mass/volume] in Seru m or PlasmaOrdered By: Jorge Ladd on 09-03-2023 Folate [Mass/Vol] 15.2 ng/mL >5.9 [facility] Comment on above: Folate reference ran ge: >5.9 ng/mlThe WHO technical consultation on folate and vitamin d19rdwouarubfdp has determined that folate concentrations lessthan 4 ng/ml are considered deficient. Thyrotropin [Units/volume] i n Serum or PlasmaOrdered By: Jorge Ladd on 09-03-2023 TSH Qn 1.89 m[IU]/L Normal 0.45-5.33 [facility] Comment on above: Result Comment: PERF ORMED BY: [place] [address] PATHOLOGIST [employer]ER LISSA SORIANO M.D. Performed By: #### T SH3, [id number] #### [facility] [address] [place] [address] Vit. B12/Folate Profileon Folate 15.2 ng/mL Normal >5.9 [facility] Comment on above: Result Comment: Mel te reference range: >5.9 ng/ml The WHO technical consultation on folate and vitamin b12 deficiencies has determined that folate concentrations less than 4 ng/ml are considered deficient. Performed By: #### T SH3, [id number] #### [address] Vitamin B12 ser/plasOrdered By: Jorge Ladd on 09-03-2023 Cobalamin (Vitamin B12) [Mass/Vol] 711 pg/mL Normal 180-914 [facility] Comment on above: Performed By: #### T SH3, [id number] #### [facility] [address] [place] [address] CBC AUTO DIFFon 12-20-2022 BASO # 0.0 103/ul Normal 0.0-0.1 [facility] Comment on above: Performed By: #### C BC ####[facility] [address] [place], [place] [address]Dr. Veena Hernández Basophils/100 WBC (Bld) 0.1 % Critically low 0.2-2.0 [facility] Comment on above: Performed By: #### C BC ####[facility] [address] [place], [place] [address]Dr. Veena Hernández EO # 0.1 103/ul Normal 0.0-0.7 [facility] Comment on above: Performed By: #### C BC ####[facility] [address] [place], [place] [address]Dr. Veena Hernández Eosinophils/100 WBC (Bld) 1.2 % Normal 0.9-7.0 [facility] Comment on above: Performed By: #### C BC ####[facility] [address] [place], [place] [address]Dr. Veena Hernández Erythrocyte distribution width (RBC) [Ratio] 13.2 % Normal 11.0-15.0 [facility] Comment on above: Performed By: #### C BC ####[facility] [address] [place], [place] [address]Dr. Veena Hernández Hematocrit (Bld) [Volume fraction] 38.4 % Normal 36.0-48.0 [facility] Comment on above: Performed By: #### C BC ####[facility] [address] [place], [place] [address]Dr. Veena Edgar Hemoglobin (Bld) [Mass/Vol] 12.6 g/dL Normal 12.0-16.0 [facility] Comment on above: Performed By: #### C BC ####[facility] [address] [place], [place] [address]Dr. Veena Edgar IG # 0.02 10e3/ul Normal 0.00-0.03 [facility] Comment on above: Performed By: #### C BC ####[facility] [address] [place], [place] [address]Dr. Valeha Hernández IG % 0.3 % Normal 0.0-0.5 [facility] Comment on above: Performed By: #### C BC ####[facility] [address] [place], [place] [address]DrLindsey Collazoha Edgar LYMPH # 0.3 103/ul Critically low 1.2-3.8 [facility] Comment on above: Performed By: #### C BC ####[facility] [address] [place], [place] [address]DrLindsey Valeha Hernández Lymphocytes/100 WBC (Bld) 4.1 % Critically low 20.5-60.0 [facility] Comment on above: Performed By: #### C BC ####[facility] [address] [place], [place] [address]DrLindsey Hernández MANUAL DIFF REQ NO Normal [facility] Comment on above: Performed By: #### C BC ####[facility] [address] [place] [address]Dr. Veena Hernández MCH (RBC) [Entitic mass] 31.4 pg Normal 26.7-34.0 [facility] Comment on above: Performed By: #### C BC ####[facility] [address] [place], [place] [address]DrLindsey Hernández MCHC (RBC) [Mass/Vol] 32.8 g/dL Normal 29.9-35.2 [facility] Comment on above: Performed By: #### C BC ####[facility] [address] [place], [place] [address]DrLindsey Hernández MCV (RBC) [Entitic vol] 95.8 fL Normal 81.0-99.0 [facility] Comment on above: Performed By: #### C BC ####[facility] [address] [place], [place] [address]DrLindsey Hernández MONO # 0.3 103/ul Normal 0.3-0.8 [facility] Comment on above: Performed By: #### C BC ####[facility] [address] [place], [place] [address]DrLindsey Hernández Monocytes/100 WBC (Bld) 3.8 % Normal 1.7-12.0 [facility] Comment on above: Performed By: #### C BC ####[facility] [address] [place], [place] [address]DrLindsey Hernández NEUT # 7.1 103/ul Critically high 1.4-6.5 [facility] Comment on above: Performed By: #### C BC ####[facility] [address] [place], [place] [address]DrLindsey Hernández Neutrophils/100 WBC (Bld) 90.5 % Critically high 43.0-75.0 [facility] Comment on above: Performed By: #### C BC ####[facility] [address] [place], [place] [address]DrLindsey Hernández Platelet mean volume (Bld) [Entitic vol] 9.8 fL Normal 9.5-13.5 [facility] Comment on above: Performed By: #### C BC ####[facility] [address] [place], [place] [address]Bt. Veena Hernández PLT 231 103/ul Normal 150-450 [facility] Comment on above: Performed By: #### C BC ####[facility] [address] [place], [place] [address]Ae. Veena Hernández RBC 4.01 106/ul Critically low 4.20-5.40 [facility] Comment on above: Performed By: #### C BC ####[facility] [address] [place], [place] [address]Ua. Veena Hernández WBC 7.8 103/ul Normal 4.0-11.0 [facility] Comment on above: Performed By: #### C BC ####[facility] [address] [place], [place] [address]Ed. Veena Hernández [facility]on SARS-CoV-2 (COVID-19) RNA ROGER+probe Ql (Unsp spec) Not detected Normal NOT DETECTED [facility] Comment on above: Result Comment: This test is not yet approved or cleared by the [place] FDA. When there are no FDA-approved or cleared tests available, and other criteria are met, FDA can make tests available under an emergency access mechanism called an Emergency Use Authorization (EUA). The EUA for this test is supported by the [place] of Health and Human Service's (HHS's) declaration [...] with SARS-CoV-2. Performed By: #### C VDTBH ####[facility] [address] [place], [place] [address]Dr. Veena Hernández INFLUENZA A AND B AGon 12-20 INFLUANEGH SEE BELOW Normal [facility] Comment on above: Result Comment: Nega tive for Flu A protein angiten. Infection due to Flu A cannot be ruled out. Flu A angiten in the sample may be below the detection limit of the test. Performed By: #### I NFLUAB ####[facility] [address] [place], [place] [address]Dr. Veena Hernández INFLUBNEGH SEE BELOW Normal [facility] Comment on above: Result Comment: Nega tive for Flu B protein antigen. Infection due to Flu B cannot be ruled out. Flu B antigen in the sample may be below the detection limit of the test. Performed By: #### I NFLUAB ####[facility] [address] [place], [place] [address]Dr. Veena Hernández INFLUENZA A AG Negative Normal NEGATIVE SEE COMMENT [facility] Comment on above: Performed By: #### I NFLUAB ####[facility] [address] [place] [address]. Veena Hernández INFLUENZA B AG Negative Normal NEGATIVE SEE COMMENT [facility] Comment on above: Performed By: #### I NFLUAB ####[facility] [address] [place], [place] [address]Dr. Veena Hernández LACTATE/LACTIC ACIDon 2022 Lactate [Moles/Vol] 0.7 mmol/L Normal 0.4-2.0 [facility] Comment on above: Performed By: #### L ACT ####[facility] [address] [place], [place] [address]Dr. Veena Hernández LIPASEon 12-20-2022 Lipase [Catalytic activity/Vol] 309.0 U/L Normal 73.0-393.0 [facility] Comment on above: Performed By: #### L IPA, HSTROPN, CMP ####[facility] [address] [place], [place] [address]Dr. Veena Hernández PROF 14(COMP METB)on 023 Albumin [Mass/Vol] 3.7 g/dL Normal 3.4-5.0 [facility] Comment on above: Performed By: #### L IPA HSTROPN, CMP ####[facility] [address] [place] [address]Dr. Veena Hernández Albumin/Globulin [Mass ratio] 1.2 {ratio} Normal [facility] Comment on above: Performed By: #### L IPA, HSTROPN, CMP ####[facility] [address] [place] [address]Dr. Veena Hernández ALP [Catalytic activity/Vol] 85 U/L Normal 46-116 [facility] Comment on above: Performed By: #### L IPA, HSTROPN, CMP ####[facility] [address] [place], [place] [address]Dr. Veena Hernández ALT [Catalytic activity/Vol] 15 U/L Normal 14-59 [facility] Comment on above: Performed By: #### L IPA, HSTROPN, CMP ####[facility] [address] [place], [place] [address]Dr. Veena Hernández Anion gap [Moles/Vol] 11.2 mmol/L Normal [facility] Comment on above: Performed By: #### L IPA, HSTROPN, CMP ####[facility] [address] [place], [place] [address]Dr. Veena Hernández AST [Catalytic activity/Vol] 15 U/L Normal 15-37 [facility] Comment on above: Performed By: #### L IPA, HSTROPN, CMP ####[facility] [address] [place], [place] [address]Dr. Veena Hernández Bilirubin [Mass/Vol] 0.9 mg/dL Normal 0.2-1.0 [facility] Comment on above: Performed By: #### L IPA, HSTROPN, CMP ####[facility] [address] [place], [place] [address]Dr. Veena Hernández Calcium [Mass/Vol] 8.7 mg/dL Normal 8.5-10.1 [facility] Comment on above: Performed By: #### L IPA HSTROPN, CMP ####[facility] [address] [place] [address]Dr. Veena Hernández Chloride [Moles/Vol] 104 mmol/L Normal 98-107 [facility] Comment on above: Performed By: #### L IPA HSTROPN, CMP ####[facility] [address] [place], [place] [address]Dr. Veena Hernández CO2 [Moles/Vol] 27.8 mmol/L Normal 21.0-32.0 [facility] Comment on above: Performed By: #### L IPA HSTROPN, CMP ####[facility] [id number] [place], [place] [address]Dr. Veena Hernández Creatinine [Mass/Vol] 0.77 mg/dL Normal 0.55-1.02 [facility] Comment on above: Performed By: #### L IPA HSTROPN, CMP ####[facility] [address] [place], [place] [address]Dr. Veena Hernández EGFR-AF JAMAICAN >60 Normal >=60 [facility] Comment on above: Performed By: #### L IPA HSTROPN, CMP ####[facility] [address] [place], [place] [address]Dr. Veena Hernández EGFR-NON AF [place] >60 Normal >=60 [facility] Comment on above: Performed By: #### L IPA HSTROPN, CMP ####[facility] [address] [place], [place] [address]Dr. Veena Hernández Globulin (S) [Mass/Vol] 3.2 g/dL Normal [facility] Comment on above: Performed By: #### L IPA, HSTROPN, CMP ####[facility] [address] [place] [address]Dr. Veena Hernández Glucose [Mass/Vol] 121 mg/dL Critically high 74-106 [facility] Comment on above: Performed By: #### L IPA HSTROPN, CMP ####[facility] [address] [place] [address]Dr. Veena Hernández Potassium [Moles/Vol] 4.0 mmol/L Normal 3.5-5.1 [facility] [facility] Comment on above: Performed By: #### L IPA HSTROPN, CMP ####[facility] [address] [place] [address]Dr. Veena Hernández Protein [Mass/Vol] 6.9 g/dL Normal 6.4-8.2 [facility] Comment on above: Performed By: #### L IPA HSTROPN, CMP ####[facility] [address] [place] [address]Dr. Veena Hernández Sodium [Moles/Vol] 139 mmol/L Normal 136-145 [facility] Comment on above: Performed By: #### L IPA HSTROPN, CMP ####[facility] [address] [place] [address]Dr. Veena Hernández Urea nitrogen [Mass/Vol] 19.0 mg/dL Critically high 7.0-18.0 [facility] Comment on above: Performed By: #### L IPA HSTROPN, CMP ####[facility] [address] [place], [place] [address]Dr. Veena Hernández Urea nitrogen/Creatinine [Mass ratio] 24.7 mg/mg Normal [facility] Comment on above: Performed By: #### L IPA HSTROPN, CMP ####[facility] [address] [place], [place] [address]Dr. Veena Hernández SYMPTOMATIC COVID-19 ANTIGEN on 12-20-2022 EUA Statement SEE BELOW Normal [facility] Comment on above: Result Comment: This test [...] revoked sooner. Performed By: #### C VDAGS ####[facility] [address] [place], [place] [address]Za. Veena Hernández SARS-CoV-2 (COVID-19) RNA ROGER+probe Ql (Unsp spec) Negative Normal NEGATIVE [facility] Comment on above: Performed By: #### C VDAGS ####[facility] [address] [place], [place] [address]Dk. Veena Hernández TROPONIN, HIGH SENSITIVITYon 12-20-2022 HSTROP <4.0 Normal 4.0-51.3 [facility] Comment on above: Result Comment: CUT- OFF POINTS HAVE BEEN ESTABLISHED BASED ON THE FOURTH UNIVERSAL DEFINITIONS OF MYOCARDIAL INFARCTION. THE UPPER REFERENCE LIMIT (URL) OF TROPONIN, DEFINED THE 99TH PERCENTILE OF cTnI DISTRIBUTION IN A REFERENCE POPULATION, HAS BEEN CONFIRMED THE DECISION THRESHOLD FOR DE DIAGNOSIS. Performed By: #### L IPA, HSTROPN, CMP ####[facility] [address] [place], [place] [address]Ao. Veena Hernández XR CSPINE 2_3 VIEWSon 2021 [...] ONUR SOLANO Date: 2022-09-05 17:06 Normal [facility] ECHOCARDIO M/2D COMPLETEon 1 10-30-2021 ECHOCARDIO M/2D COMPLETE Patient: KEVON CAMPOS Exam Date: 08/29/2022 : 1950 Gender:F Ordering : NEIDA HERNANDEZDeonVICTOR M [facility]mission #: [id number] Family : Order #: [id number] CLICK HERE TO VIEW EXAM ECHOCARDIOGRAM REPORT [...] Haney M.D. on 08/30/2022 at 12:57 Normal [facility] NM STRESS/REST MULTIon 08-29 NM STRESS/REST MULTI Patient: KEVON CAMPOS Exam Date: 08/29/2022 : 1950 Gender:F Ordering : NEIDA MEREDITH CNP Admission #: [id number] Family : Order #: [id number] CLICK HERE TO VIEW EXAM RADIOLOGY REPORT [...] M.D. on 08/29/2022 at 15:58 Normal [facility] BNPon 08-01-2022 Natriuretic peptide B (Bld) [Mass/Vol] 41.0 pg/mL Normal <=900.0 [facility] Comment on above: Performed By: #### C K, CKMB, REINALDO, CMP, BNP, HSTROPN #### [facility] [address] [address] [address] Veena Hernández CBC AUTO DIFFon 08-01-2022 BASO # 0.0 103/ul Normal 0.0-0.1 [facility] Comment on above: Performed By: #### C BC ####[facility] [address] [place] [id number]. Veena Hernández Basophils/100 WBC (Bld) 0.8 % Normal 0.2-2.0 [facility] Comment on above: Performed By: #### C BC ####[facility] [address] [place], [place] [address]MwDr. Veena Hernández EO # 0.1 103/ul Normal 0.0-0.7 [facility] Comment on above: Performed By: #### C BC ####[facility] [address] [place] [address]Dr. Veena Hernández Eosinophils/100 WBC (Bld) 1.3 % Normal 0.9-7.0 [facility] Comment on above: Performed By: #### C BC ####[facility] [address] [place], [place] [address]Dr. Veena Hernández Erythrocyte distribution width (RBC) [Ratio] 13.3 % Normal 11.0-15.0 [facility] Comment on above: Performed By: #### C BC ####[facility] [address] [place], [place] [address]Dr. Veena Hernández Hematocrit (Bld) [Volume fraction] 39.3 % Normal 36.0-48.0 [facility] Comment on above: Performed By: #### C BC ####[facility] [address] [place], [place] [address]Dr. Veena Hernández Hemoglobin (Bld) [Mass/Vol] 12.9 g/dL Normal 12.0-16.0 [facility] Comment on above: Performed By: #### C BC ####[facility] [address] [place], [place] [address]Dr. Veena Hernández IG # 0.00 10e3/ul Normal 0.00-0.03 [facility] Comment on above: Performed By: #### C BC ####[facility] [address] [place], [place] [address]Dr. Veena Hernández IG % 0.0 % Normal 0.0-0.5 [facility] Comment on above: Performed By: #### C BC ####[facility] [address] [place], [place] [address]Dr. Veena Hernández LYMPH # 1.8 103/ul Normal 1.2-3.8 [facility] Comment on above: Performed By: #### C BC ####[facility] [address] [place], [place] [address]Dr. Veena Edgar Lymphocytes/100 WBC (Bld) 34.3 % Normal 20.5-60.0 [facility] Comment on above: Performed By: #### C BC ####[facility] [address] [place] [address]Dr. Veena Hernández MANUAL DIFF REQ NO Normal [facility] Comment on above: Performed By: #### C BC ####[facility] [address] [place] [id number]. Veena Hernández MCH (RBC) [Entitic mass] 31.1 pg Normal 26.7-34.0 [facility] Comment on above: Performed By: #### C BC ####[facility] [address] [place] [address]Dr. Veena Hernández MCHC (RBC) [Mass/Vol] 32.8 g/dL Normal 29.9-35.2 [facility] Comment on above: Performed By: #### C BC ####[facility] [address] [place], [place] [address]Dr. Veena Hernández MCV (RBC) [Entitic vol] 94.7 fL Normal 81.0-99.0 [facility] Comment on above: Performed By: #### C BC ####[facility] [address] [place], [place] [address]Dr. Veena Hernández MONO # 0.3 103/ul Normal 0.3-0.8 [facility] Comment on above: Performed By: #### C BC ####[facility] [address] [place], [place] [address]Dr. Veena Hernández Monocytes/100 WBC (Bld) 6.1 % Normal 1.7-12.0 [facility] Comment on above: Performed By: #### C BC ####[facility] [address] [place], [place] [address]DrLindsey Hernández NEUT # 3.0 103/ul Normal 1.4-6.5 [facility] Comment on above: Performed By: #### C BC ####[facility] [address] [place], [place] [address]DrLindsey Hernández Neutrophils/100 WBC (Bld) 57.5 % Normal 43.0-75.0 [facility] Comment on above: Performed By: #### C BC ####[facility] [address] [place] [address]Dr. Valeha Edgar Platelet mean volume (Bld) [Entitic vol] 9.8 fL Normal 9.5-13.5 [facility] Comment on above: Performed By: #### C BC ####[facility] [address] [place] [address]Dr. Veena Edgar PLT 227 103/ul Normal 150-450 [facility] Comment on above: Performed By: #### C BC ####[facility] [address] [place] [address]Dr. Veena Edgar RBC 4.15 106/ul Critically low 4.20-5.40 [facility] Comment on above: Performed By: #### C BC ####[facility] [address] [place] [address]Dr. Valeha Edgar WBC 5.3 103/ul Normal 4.0-11.0 [facility] Comment on above: Performed By: #### C BC ####[facility] [address] [place] [address]DrLindsey Hernández CKMBon 08-01-2022 CK.MB [Mass/Vol] 0.90 ng/mL Normal <=3.60 [facility] Comment on above: Performed By: #### C K, CKMB, REINALDO, CMP, BNP, HSTROPN #### [facility] [address] [address] [address] Veena Hernández CPKon 08-01-2022 CK [Catalytic activity/Vol] 66 U/L Normal 26-192 [facility] Comment on above: Performed By: #### C K, CKMB, REINALDO, CMP, BNP, HSTROPN #### [facility] [address] [address] [address] Veena Hernández MYOGLOBINon 08-01-2022 REINALDO 38 ng/mL Normal 9-82 [facility] Comment on above: Performed By: #### C K, CKMB, REINALDO, CMP, BNP, HSTROPN ####[facility] [address] [place], [place] [address]AiDr. Veena Hernández PROF 14(COMP METB)on 022 Albumin [Mass/Vol] 4.0 g/dL Normal 3.4-5.0 [facility] Comment on above: Performed By: #### C K, CKMB, REINALDO, CMP, BNP, HSTROPN #### [facility] [address] [address] [address] Veena Hernández Albumin/Globulin [Mass ratio] 1.3 {ratio} Normal [facility] Comment on above: Performed By: #### C K, CKMB, REINALDO, CMP, BNP, HSTROPN #### [facility] [address] [address] [address] Veena Hernández ALP [Catalytic activity/Vol] 69 U/L Normal 46-116 [facility] Comment on above: Performed By: #### C K, CKMB, REINALDO, CMP, BNP, HSTROPN #### [facility] [address] [address] [address] Veena Hernández ALT [Catalytic activity/Vol] 15 U/L Normal 14-59 [facility] Comment on above: Performed By: #### C K, CKMB, REINALDO, CMP, BNP, HSTROPN #### [facility] [address] [address] [address] Veena Hernández Anion gap [Moles/Vol] 7.4 mmol/L Normal [facility] Comment on above: Performed By: #### C K, CKMB, REINALDO, CMP, BNP, HSTROPN #### [facility] [address] [address] [address] Veena Hernández AST [Catalytic activity/Vol] 14 U/L Critically low 15-37 [facility] Comment on above: Performed By: #### C K, CKMB, REINALDO, CMP, BNP, HSTROPN #### [facility] [address] [address] [address] Veena Hernández Bilirubin [Mass/Vol] 1.9 mg/dL Critically high 0.2-1.0 [facility] Comment on above: Performed By: #### C K, CKMB, REINALDO, CMP, BNP, HSTROPN #### [facility] [address] [address] [address] Veena Hernández Calcium [Mass/Vol] 9.4 mg/dL Normal 8.5-10.1 [facility] Comment on above: Performed By: #### C K, CKMB, REINALDO, CMP, BNP, HSTROPN #### [facility] [address] [address] [address] Veena Hernández Chloride [Moles/Vol] 106 mmol/L Normal 98-107 [facility] Comment on above: Performed By: #### C K, CKMB, REINALDO, CMP, BNP, HSTROPN #### [facility] [address] [place] [address] Dr. Veena Hernández CO2 [Moles/Vol] 32.3 mmol/L Critically high 21.0-32.0 [facility] Comment on above: Performed By: #### C K, CKMB, REINALDO, CMP, BNP, HSTROPN #### [facility] [address] [place] [address] Dr. Veena Hernández Creatinine [Mass/Vol] 0.80 mg/dL Normal 0.55-1.02 [facility] Comment on above: Performed By: #### C K, CKMB, REINALDO, CMP, BNP, HSTROPN #### [facility] [address] [address] [address] Veena Hernández EGFR-AF JAMAICAN >60 Normal >=60 [facility] Comment on above: Performed By: #### C K, CKMB, REINALDO, CMP, BNP, HSTROPN #### [facility] [address] [place] [address] Dr. Veena Hernández EGFR-NON AF JAMAICAN >60 Normal >=60 [facility] Comment on above: Performed By: #### C K, CKMB, REINALDO, CMP, BNP, HSTROPN #### [facility] [address] [place] [address] Dr. Veena Hernández Globulin (S) [Mass/Vol] 3.2 g/dL Normal [facility] Comment on above: Performed By: #### C K, CKMB, REINALDO, CMP, BNP, HSTROPN #### [facility] [address] [place] [address] Dr. Veena Hernández Glucose [Mass/Vol] 98 mg/dL Normal 74-106 [facility] Comment on above: Performed By: #### C K, CKMB, REINALDO, CMP, BNP, HSTROPN #### [facility] [address] [address] [address] Veena Hernández Potassium [Moles/Vol] 3.7 mmol/L Normal 3.5-5.1 [facility] Comment on above: Performed By: #### C K, CKMB, REINALDO, CMP, BNP, HSTROPN #### [facility] [address] [place] [address] Dr. Veena Hernández Protein [Mass/Vol] 7.2 g/dL Normal 6.4-8.2 [facility] Comment on above: Performed By: #### C K, CKMB, REINALDO, CMP, BNP, HSTROPN #### [facility] [address] [place] [address] Dr. Veena Hernández Sodium [Moles/Vol] 142 mmol/L Normal 136-145 [facility] Comment on above: Performed By: #### C K, CKMB, REINALDO, CMP, BNP, HSTROPN #### [facility] [address] [place] [address] Dr. Veena Hernández Urea nitrogen [Mass/Vol] 11.0 mg/dL Normal 7.0-18.0 [facility] Comment on above: Performed By: #### C K, CKMB, REINALDO, CMP, BNP, HSTROPN #### [facility] [address] [place] [address] Dr. Veena Hernández Urea nitrogen/Creatinine [Mass ratio] 13.8 mg/mg Normal [facility] Comment on above: Performed By: #### C K, CKMB, REINALDO, CMP, BNP, HSTROPN #### [facility] [address] [place], [place] [address] Dr. Veena Hernández TROPONIN, HIGH SENSITIVITYon 08-01-2022 HSTROP 5.0 pg/mL Normal 4.0-51.3 [facility] Comment on above: Result Comment: CUT- OFF POINTS HAVE BEEN ESTABLISHED BASED ON THE FOURTH UNIVERSAL DEFINITIONS OF MYOCARDIAL INFARCTION. THE UPPER REFERENCE LIMIT (URL) OF TROPONIN, DEFINED THE 99TH PERCENTILE OF cTnI DISTRIBUTION IN A REFERENCE POPULATION, HAS BEEN CONFIRMED THE DECISION THRESHOLD FOR DE DIAGNOSIS. Performed By: #### C K, CKMB, REINALDO, CMP, BNP, HSTROPN #### [facility] [address] [place], [place] [address] Dr. Veena Hernández XR CHEST 2 Von [...] by: ONUR SOLANO Date: 2022-08-01 10:19 Normal [facility] XR LSPINE 2_3 VIEWSon 2021 XR [...] by: CARLOS KEMP Date: 2022-07-12 19:26 Normal [facility] XR HIP RT INJon 04-03-2022 XR [...] by: ONUR SOLANO Date: 2022-04-03 09:18 Normal [facility] Vital Signs Date Time Vital Sign Value Performing Clinician Fady curtis 10-12-2024 09:52-0500 Body height 154.9 cm Duyen Urbano CS ASSOCIATE Work Phone: [facility] 10-12-2024 09:52-0500 Body mass index (BMI) [Ratio] 27.21 kg/m2 Duyen Urbano CS ASSOCIATE Work Phone: [facility] 10-12-2024 09:52-0500 Body temperature 97.2 [degF] Duyen Urbano CS ASSOCIATE Work Phone: [facility] 10-12-2024 09:52-0500 Body weight 65.32 kg Duyen Urbano CS ASSOCIATE Work Phone: [facility] 10-12-2024 09:52-0500 Diastolic blood pressure 74 mm[Hg] Duyen Urbano CS ASSOCIATE Work Phone: [facility] 10-12-2024 09:52-0500 Heart rate 80 /min Duyen Porterpatrick CS ASSOCIATE Work Phone: [facility] 10-12-2024 09:52-0500 Respiratory rate 16 /min Duyen Urbano CS ASSOCIATE Work Phone: [facility] 10-12-2024 09:52-0500 SaO2% (BldA) [Mass fraction] 98 % Duyen Urbano CS ASSOCIATE Work Phone: [facility] 10-12-2024 09:52-0500 Systolic blood pressure 132 mm[Hg] Duyen Urbano CS ASSOCIATE Work Phone: [facility] Encounters Encounter Date Encounter Type Care Provider Facility Start: 10-12-2024 End: 10-12-2024 Bamboo flowsheet Duyen Urbano CS ASSOCIATE Work Phone: [facility] Start: 10-12-2024 End: 10-12-2024 Bamboo flowsheet Duyen Urbano CS ASSOCIATE Work Phone: [facility] Start: 10-12-2024 End: 10-12-2024 Office outpatient visit 15 minutes Duyen Porterpatrick CS ASSOCIATE Work Phone: [facility] Comment on above: COVID-19 (Primary Dx ); Dyslipidemia (CMS/HCC); Primary hypertension (CMS/HCC) Start: 10-12-2024 End: 10-12-2024 ambulatory DUYEN URBANO Not Available Start: 09-29-2024 End: 09-29-2024 Orders Only Duyen Urbano CS ASSOCIATE Work Phone: [facility] Comment on above: 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) (Primary Dx) Start: 08-08-2024 End: 08-08-2024 [facility] Start: 08-05-2024 End: 08-05-2024 ambulatory [facility] Start: 07-23-2024 End: 07-23-2024 ambulatory [facility] Start: 06-15-2024 End: 06-15-2024 Sandeep Urbano NP Work Phone: [facility] Comment on above: Primary hypertension (CMS/HCC) Start: 04-14-2024 End: 04-14-2024 ambulatory SHAIKH MELANIED Not Available Start: 01-06-2024 End: 01-06-2024 ambulatory SANDERS FAWWAD Not Available Start: 10-16-2023 End: 10-16-2023 ambulatory LONI COLLINSINSON [facility] Start: 09-26-2023 End: 09-26-2023 ambulatory JORGE Seth JULEE [facility] Start: 09-03-2023 End: 09-03-2023 ambulatory Shaikh Natalia Facility:[facility] Start: 09-03-2023 End: 09-03-2023 ambulatory MD Shaikh Fisher Work Phone: [facility] Work Phone: Start: 09-03-2023 End: 09-03-2023 Patient encounter procedure MD Shaikh Fisher Work Phone: [facility] [place] Work Phone: Start: 12-20-2022 End: 12-20-[address] GEOFFREY COPELAND . Facility:[facility] Start: 10-16-2022 End: 10-31-2022 ambulatory SANDERS H FAWWAD Facility:[facility] Start: 09-16-2022 End: 09-17-2022 ambulatory SANDERS H FAWWAD Facility:[facility] Start: 09-06-2022 End: 09-15-2022 ambulatory SANDERS H FAWWAD Facility:[facility] Start: 09-04-2022 End: 09-05-[address] ONUR SOLANO Facility:[facility] Start: 08-29-2022 End: 08-30-2022 ambulatory NEIDA MEREDITH Facility:[facility] Start: 08-01-2022 End: 08-02-2022 ambulatory NEIDA MEREDITH Facility:[facility] Start: 07-12-2022 End: 07-13-2022 ambulatory SHAIKH Deon FISHER Facility:[facility] Start: 04-03-2022 End: 04-03-[address] MIRELLA GUEVARA Facility:[facility] Procedures Date Procedure Procedure Detail Performing Clinician Start: 08-27-2023 Mammography Duyen desai NP Work Phone: Plan of Treatment Date Care Activity Detail Author Start: 01-05-2025 Medicare Annual Well ness (AWV) Medicare Annual Wellness (AWV) [facility] Start: 11-16-2024 End: 11-16-2024 Patient encounter procedure 11/16/2024 10:00 AM EST Office Visit [facility] [address] [place] [phone] Duyen Urbano, AJIT [address] [place] [address] [facility] Start: 10-12-2024 End: 10-12-2024 Patient encounter procedure 10/12/2024 10:00 AM EST Office Visit [facility] [address] [place] [phone] Duyen Urbano NP [address] [place] [phone] Arrived [facility] Comment on above: Arrived Start: 08-27-2024 Screening for malign ant neoplasm of breast Mammogram [facility] Start: 08-17-2024 End: 08-17-2024 Patient encounter procedure 08/17/2024 10:30 AM EST Office Visit [facility] [address] [place] [address] Duyen Urbano NP [address] [place] [address] [facility] Start: 05-17-2024 Influenza vaccination Influenza Vacc ine (#1) [facility] Start: 09-16-2023 Screening for malign ant neoplasm of colon [facility] Start: 07-16-2009 Pneumococcal Vaccine : 65+ Years (2 of 2 - PCV) Pneumococcal Vaccine: 65+ Years (2 of 2 - PCV) [facility] Start: 1950 Screening for malign ant neoplasm of colon [facility] Immunizations Immunization Date Immunization Notes Care Provider Fa cili 07-13-2023 influenza virus vacc ine, unspecified formulation Duyen Urbano CS ASSOCIATE Work Phone: [facility] 09-02-2015 zoster vaccine, live Linda Keenank CS ASSOCIATE Work Phone: [facility] 07-16-2008 pneumococcal polysaccharide vaccine, 23 valent Duyen Barnestrick CS ASSOCIATE Work Phone: [facility] Payers Date Payer Category Payer Medicare (Managed Care) [employer] [id number] 2023 Unknown [employer] [facility] [employer] [id number] 2023-Present [address] [place] [phone] [id number] 2023 Medicare [id number] 2023 Self-pay 1959 Unknown [id number] 1959 Unknown [id number] 1950 Unknown [id number] 2.16.840.1.875243.3.579. 2.593 1952 Unknown [id number] 2.16.840.1.839410.3.579. 2.593 1952 Unknown [id number] 2.16.840.1.346049.3.579. 2.593 1952 Unknown [id number] 2.16.840.1.025933.3.579. 2.593 1952 Unknown [id number] 2.16.840.1.751430.3.579. 2.593 1952 Unknown [id number] 2.16.840.1.797503.3.579. 2.593 1952 Unknown [id number] 2.16.840.1.205469.3.579. 2.593 1952 Unknown [id number] 2.16.840.1.385344.3.579. 2.593 1952 Unknown [id number] 2.16.840.1.687059.3.579. 2.593 1952 Unknown [id number] 2.16.840.1.287132.3.579. 2.1286 1952 Unknown [id number] 2.16.840.1.807421.3.579. 2.128 1952 Unknown [id number] 2.16.840.1.350221.3.579. 2.128 1952 Unknown [id number] 2.16.840.1.122456.3.579. 2.128 1952 Unknown [id number] 2.16.840.1.972841.3.579. 2.1286 1952 Unknown [id number] 2.16.840.1.978846.3.579. 2.128 1952 Unknown [id number] 2..840.1.681892.3.579. 2.1259 1952 Unknown [id number] 2..840.1.369568.3.579. 2.1259 1952 Unknown [id number] 2.16.840.1.302023.3.579. 2.1259 Medicare Medicare [id number] Unknown [id number] 2.16.840.1.638925.3.579. 2.531 Social History Date Type Detail Facility Tobacco smoking stat [facility] Unknown if ever smoked [facility] Work Phone: Start: 1950 Sex Assigned At Female F [facility] Start: 01-06-2024 Tobacco smoking stat [facility] Never smoked tobacco [facility] Start: 01-06-2024 Tobacco use and exposure Smoke less tobacco non-user [facility] Start: 04-14-2024 End: 10-12-2024 Alcoholic beverage intake Lifetime non-drinker (finding) [facility] Start: 08-12-2023 End: 04-14-2024 History of Social function [facility] Start: 08-12-2023 End: 04-14-2024 Humiliation, Afraid, Rape, and Kick questionnaire [HARK] [facility] Within the last year , have you been afraid of your partner or ex-partner? No [facility] Are you now , , , , never or living with a partner? [facility] How often to you hav e a drink containing alcohol? Never [facility] How many standard dr inks containing alcohol do you have on a typical day? Patient does not drink [facility] How hard is it for y ou to pay for the very basics like food, housing, medical care, and heating Not very hard [facility] Do you feel stress - tense, restless, nervous, or anxious, or unable to sleep at night because your mind is troubled all the time - these days [OSQ] Very much [facility] (I/We) worried edin er (my/our) food would run out before (I/we) got money to buy more. Never true [facility] Start: 1950 Sex assigned at Not on file [facility] NEGATED: Highlighted rowStart: TJF History of tobacco use Passive smoker [facility] History of Present illness Narrative 10-12-2024 Duyen Urbano NP - 10/12/2024 10:32 AM Rossi Urbano NP - 10/12/2024 10:00 AM EST Note Date & Type Note Facility 10-12-2024 History of Presen t illness Narrative Associated Problem(s): COVID-19 Was seen in ED on 10/02 for COVID and ear infection. Was tx with Augmentin for otitis media and tylenol for fever/pain. Reports mild cough intermittently still persists. States most symptoms have since subsided. No complaints or concerns at this time. Denies shortness of breath/chest pain/ear pain/dizziness/N/V/D. Images from the original note were not included. Subjective Patient ID: Kevon Campos is a 74 y.o. female who presents for Hospital Follow-up. HPI Was seen in ED on 10/02 for COVID and ear infection. Was tx with Augmentin for otitis media and tylenol for fever/pain. Reports mild cough intermittently still persists. States most symptoms have since subsided. No complaints or concerns at this time. Denies shortness of breath/chest pain/ear pain/dizziness/N/V/D. Review of Systems Constitutional: Negative for activity change, appetite change, chills, diaphoresis, fatigue, fever and unexpected weight change. HENT: Negative for congestion, ear pain, rhinorrhea, sinus pressure, sinus pain, sneezing, sore throat, trouble swallowing and voice change. Eyes: Negative for visual disturbance. Respiratory: Positive for cough. Negative for chest tightness, shortness of breath and wheezing. Cardiovascular: Negative for chest pain, palpitations and leg swelling. Gastrointestinal: Negative for abdominal distention, abdominal pain, blood in stool, constipation, diarrhea and vomiting. Genitourinary: Negative for decreased urine volume, dysuria, flank pain, frequency, hematuria and urgency. Musculoskeletal: Negative for arthralgias, gait problem, joint swelling and myalgias. Skin: Negative for rash. Neurological: Negative for dizziness, tremors, syncope, weakness, light-headedness and headaches. Psychiatric/Behavioral: Negative for decreased concentration and suicidal ideas. The patient is not nervous/anxious. Hematological: Does not bruise/bleed easily. Endocrine: Negative for cold intolerance, heat intolerance, polydipsia, polyphagia and polyuria. Objective Physical Exam Vitals reviewed. Constitutional: Appearance: Normal appearance. HENT: Right Ear: Tympanic membrane normal. Left Ear: Tympanic membrane normal. Nose: Nose normal. Mouth/Throat: Mouth: Mucous membranes are moist. Pharynx: Oropharynx is clear. Eyes: Pupils: Pupils are equal, round, and reactive to light. Cardiovascular: Rate and Rhythm: Normal rate and regular rhythm. Pulses: Normal pulses. Heart sounds: Normal heart sounds. Pulmonary: Effort: Pulmonary effort is normal. Breath sounds: Normal breath sounds. Abdominal: General: Abdomen is flat. Bowel sounds are normal. Palpations: Abdomen is soft. Musculoskeletal: General: Normal range of motion. Skin: Capillary Refill: Capillary refill takes less than 2 seconds. Neurological: Mental Status: She is alert and oriented to person, place, and time. Assessment/Plan Problem List Items Addressed This Visit Hypertension (CMS/HCC) Relevant Medications losartan (Cozaar) 50 MG tablet Dyslipidemia (CMS/HCC) Relevant Medications atorvastatin (Lipitor) 20 MG tablet COVID-19 - Primary Was seen in ED on 10/02 for COVID and ear infection. Was tx with Augmentin for otitis media and tylenol for fever/pain. Reports mild cough intermittently still persists. States most symptoms have since subsided. No complaints or concerns at this time. Denies shortness of breath/chest pain/ear pain/dizziness/N/V/D. documented in this encounter [facility] Healthcare Instructions 10-12-2024 Patient Instructions Note Date & Type Note Facility 10-12-2024 Instructions Duyen Urbano NP - 10/12/2024 10:00 AM EST Continue to rest, drink plenty of fluids, and eat a well-balance diet. Resume normal activity. AVOID anything strenuous until you are feeling better. Treatment: Nasal saline spray 2-3 times/day Zyrtec allergy medication once daily. Flonase nasal spray 1-2 squirts in each nostril at night. Tylenol for fever and body aches. Mucinex for cough/congestion 600-1,200mg twice daily. Delsym for a dry cough Vitamins: Vitamin C 1,000mg per day. Vitamin D3 2,000 international unit(s) per day.Zinc 25mg per day. WORSENING SYMPTOMS, CHEST PAIN, OR SHORTNESS OF BREATH, GO TO THE NEAREST EMERGENCY DEPARTMENT. documented in this encounter [facility] Clinical Note 11-10-2021 Note Date & Type Note Facility 11-10-2021 Note PROCEDURE: [employer] HDXT 1.5 Sagittal T1, T2, STIR [...] and L5-S1. Report reported and signed by Mcihael Cristina on 11/10/[address] [facility] Evaluation note Note Date & Type Note Facility Evaluation note [facility]: Evaluation note Note Date & [...] Primary documented in this encounter [facility] Evaluation [...] hypertension Dyslipidemia (CMS/HCC) Other and unspecified hyperlipidemia COVID-19- Primary Dyslipidemia (CMS/HCC) Other and unspecified hyperlipidemia Primary hypertension (CMS/HCC) Unspecified essential hypertension documented in this encounter [facility] Summary Purpose Family History No Family History [...] section and content) DATE CREATED AUTHOR 11/11/2021 [facility] dical Specialist DATE CREATED AUTHOR AUTHOR'S ORGANIZ ATION 12/21/2022 [facility] DATE CREATED AUTHOR AUTHOR'S ORGANIZ ATION 09/08/2023 [facility] DATE CREATED AUTHOR AUTHOR'S ORGANIZ ATION 10/20/2023 [facility] DATE CREATED AUTHOR AUTHOR'S ORGANIZ ATION 08/11/2024 [facility] DATE CREATED AUTHOR AUTHOR'S ORGANIZ ATION 10/12/2024 [facility] dical Specialists [employer] Care Teams (unrecognized sec tion and content) Team Status: Active Member Role Status Dates Shaikh Natalia MD Primary Care Provider Active Team Status: Inactive Member Role Status Dates Shaikh Natalia MD Primary Care Provider Active Jorge Ladd DO Attending Provider Active Gem Cutter Relationship Specialty Start Date End Date Shaikh Fisher MD [address] [place] [address] PCP - [facility] 09/16/23 Navneet Vanegas MD [address] [place] [address] PCP - General Family Medicine 05/26/24 Duyen Urbano NP [address] [place] [address] Nurse Practitioner Family Medicine 05/26/24 Gem Cutter Relationship Specialty Start Date End Date Shaikh Fisher MD [address] [place] [phone] PCP - [facility] 09/16/23 Navneet Vanegas MD [address] [place] [address] PCP - General Family Medicine 05/26/24 Duyen Urbano NP [address] [place] [address] Nurse Practitioner Family Medicine 05/26/24 Gem Cutter Relationship Specialty Start Date End Date Shaikh Fisher MD [address] [place] [address] PCP - [facility] 09/16/23 Qi Andrade MD [address] [place] [address] PCP - General Family Medicine 10/06/24 Duyen Urbano NP [address] [place] [address] Nurse Practitioner Family Medicine 05/26/24 Gem Cutter Relationship Specialty Start Date End Date Shaikh Fisher MD [address] [place] [address] PCP - [facility] 09/16/23 Qi Andrade MD [address] [place] [facility] [phone] PCP - General Family Medicine 10/06/24 Duyen Urbano NP [address] [place] [phone] Nurse Practitioner Family Medicine 05/26/24 Goals (unrecognized section and content) Goals may be documented in a n alternate section Reason for Visit (unrecogniz ed section and content) Reason Onset Date Comments Med Refill 06/15/2024 Reason Comments Hospital Follow-up FOR RECORDS PERTAINING TO PATIENTS WHO ARE [...] BE BASED ON THE PRIMARY CLINICAL RECORDS. [employer] provides no warranty or guarantee of the accuracy or completeness of information in this document.
== END 2024-11-02 19:31 | disposition left against medical advice (07) ==
PROVIDERS: Emergency Provider Emergency Medicine
DX: Z53.21 Procedure and treatment not carried out due to patient leaving prior to being seen by health care provider (principal)

== ENCOUNTER 2025-02-25 09:02 | Outpatient (OUT) | payer OTHER, SELFPAY ==
--- OUTSIDE RECORDS SUMMARY | 2025-02-25 09:15 | XMS_ITS | CCD ---
Author Organization [facility] Inform ion [facility] Care Team Providers Care Robotics Systems Engineer Name Role Phone DR ALEX SOLANO Consulting Unavailable FAWWAD, BONILLA H Attending Unavailable FAWWAD, BONILLA H Primary Care Unavailable FAWWAD, BONILLA H Admitting Unavailable FAWWAD, BONILLA H Consulting Unavailable FAWWAD, BONILLA H Attending Unavailable DR CARLOS KEMP V Consulting Unavailable FAWWAD, BONILLA H Primary Care Unavailable FAWWAD, BONILLA H Admitting Unavailable FAWWAD, BONILLA H Consulting Unavailable AICHHOLZ, SURVEILLANCE MANAGER EVELYN Consulting Unavailable AICHHOLZ, SURVEILLANCE MANAGER EVELYN Admitting Unavailable AICHHOLZ, SURVEILLANCE MANAGER EVELYN Attending Unavailable FAWWAD, BONILLA H Primary Care Unavailable DR ALEX SOLANO Consulting Unavailable FAWWAD, BONILLA H Attending Unavailable FAWWAD, BONILLA H Primary Care Unavailable FAWWAD, BONILLA H Admitting Unavailable FAWWAD, BONILLA H Attending Unavailable FAWWAD, BONILLA H Primary Care Unavailable FAWWAD, BONILLA H Admitting Unavailable FAWWAD, BONILLA H Attending Unavailable FAWWAD, BONILLA H Primary Care Unavailable FAWWAD, BONILLA H Admitting Unavailable MARKER ., DR HALE Consulting Unavailable MARKER ., DR HALE Admitting Unavailable MARKER ., DR HALE Attending Unavailable FAWWAD, BONILLA H Primary Care Unavailable ISMAEL, DR VU Consulting Unavailable MARLENANIC, DR VU Admitting Unavailable STEPANIC, DR VU Attending Unavailable FAWWAD, BONILLA H Primary Care Unavailable DR ALEX SOLANO Consulting Unavailable AICHHOLZ, SURVEILLANCE MANAGER EVELYN Consulting Unavailable AICHHOLZ, SURVEILLANCE MANAGER EVELYN Admitting Unavailable AICHHOLZ, SURVEILLANCE MANAGER EVELYN Attending Unavailable FAWWAD, BONILLA Primary Care Unavailable DR ALEX SOLANO Consulting Unavailable MD Chad Fisher Primary Care Provider DO Jorge Ladd Attending Provider [phone] Barry Fisherikh Primary Care Unavailable Jorge Ladd Attending Unavailable Jorge Ladd Admitting Unavailable LONI BRITT Attending Unavailable PUMA ROCHA Referring Unavailable RENETTASKYE [facility] Primary Care Unavailable LONI BRITT Attending Unavailable PUMA ROCHA Referring Unavailable NATALIA [facility] Primary Care Unavailable DOREEN AISLINN S Referring Unavailable QI ANDRADE Primary Care Unavailable DOREEN AISLINN S Referring Unavailable QI ANDRADE Primary Care Unavailable DOREEN AISLINN S Referring Unavailable QI ANDRADE Primary Care Unavailable JORGE LADD Attending Unavailable JORGE LADD Referring Unavailable BARRY FISHERIKH Primary Care Unavailable Shaikh Fisher MD Unavailable Navneet Vanegas MD Primary Care Provider Yolie FONG, Dominique Unavailable Qi Andrade MD Primary Care Provider [phone] Yolie V GROOVE CUTTER, Dominique Unavailable SHAIKH FISHER Attending Unavailable SHAIKH FISHER Attending Unavailable DOMINIQUE URBANO Attending UnavailEVELYN Colni Attending Unavailable DAVE AMBROCIO Attending Unavailable Qi Andrade MD Primary Care Provider [phone] Navneet Vanegas MD Primary Care Provider Chandni FONG, Evelyn Unavailable Allergies Allergy Classification Reported Allergen(s) Allergy Type Date of Onset Reaction(s) Facility (1 source) Acetaminophen / oxyCODONE Drug Allergy 3 [facility] Repository (1 source) Morphine Drug Allergy 3 [facility] Repository (16 sources) Acetaminophen / oxyCODONE; Translations: [OXYCODONE-ACETAM INOPHEN] Drug Allergy 4 Itching [facility] Repository (2 sources) Adhesive agent; Translations: [ADHESIVE] Propensity to adverse reactions to drug (disorder) 4 [facility] Repository (14 sources) Morphine Drug Allergy 3 Itching [facility] Work Phone: (14 sources) Wound Dressing Adhesive Drug Intolerance 4 [facility] Medications Current Medications Medication Drug Class(es) Dates Sig (Normalized) Sig (Original) [id number] 200 actuat albuterol 0.09 mg/actuat metered dose inhaler (17 sources) beta2-Adrenergic Agonist Start: 01-05-2025 End: 03-26-2025 take 2 puff(s) by inhalation every six hours for wheezing albuterol HFA 90 mcg/act inhaler Indications: Mild intermittent asthma with status asthmaticus (CMS/HCC) Inhale 2 puffs every 6 (six) hours if needed for wheezing 18 g 02/24/2025 03/26/2025 Active Start: 02-12-2024 End: 01-04-2025 take 2 puff(s) by mouth every six hours as needed albuterol HFA 90 mcg/act inhaler Indications: Mild intermittent asthma with status asthmaticus (CMS/HCC) INHALE 2 PUFFS BY MOUTH EVERY 6 HOURS NEEDED FOR SHORTNESS OF BREATH 9 g 02/12/2024 01/04/2025 Discontinued (Reorder) amoxicillin 875 mg / clavulanate 125 mg oral tablet (3 sources) Penicillin-class Antibacterial take 1 tablet by mouth in the morning amoxicillin-clavulanate (Augmentin) 875-125 MG tablet Take 875 mg by mouth in the morning and 875 mg before bedtime. Active atorvastatin 20 mg oral tablet (19 sources) HMG-CoA Reductase Inhibitor Start : 04-14 End: 05-25 take 1 tablet by mouth once daily atorvastatin (Lipitor) 20 MG tablet Indications: Dyslipidemia (CMS/HCC) Take 1 tablet (20 mg) by mouth Daily 90 tablet 1 02/24/2025 05/25/2025 Active losartan potassium 50 mg oral tablet (20 sources) Angiotensin 2 Receptor Shari Start : 04-14 End: 05-25 take 1 tablet by mouth once daily losartan (Cozaar) 50 MG tablet Indications: Hypertension Take 1 tablet (50 mg) by mouth Daily 90 tablet 1 02/24/2025 05/25/2025 Active mirtazapine 7.5 mg oral tablet (20 sources) Start : 09-02 End: 05-25 take 1 tablet by mouth at bedtime mirtazapine (Remeron) 7.5 MG tablet Indications: 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) Take 1 tablet (7.5 mg) by mouth at bedtime 90 tablet 1 02/24/2025 05/25/2025 Active QUEtiapine 25 mg oral tablet (4 sources) Atypical Antipsychotic Start : 04-14 End: 10-12 take 1 tablet by mouth at bedtime QUEtiapine (SEROquel) 25 MG tablet Indications: 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) Take 1 tablet (25 mg) by mouth at bedtime 90 tablet 04/14/2024 10/12/2024 Discontinued (Discontinued by another clinician) risperiDONE 0.5 mg oral tablet (20 sources) Atypical Antipsychotic Start : 08-05 End: 05-25 take 1 tablet by mouth in the morning risperiDONE (RisperDAL) 0.5 MG tablet Indications: Behavioral Disorders associated with Dementia Take 1 tablet (0.5 mg) by mouth in the morning and 1 tablet (0.5 mg) before bedtime. 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; Translations: [Alzheimer's disease with early onset] Onset: 4 Resolved: 5 09-26-2023 Chronic Disorders of lipid metabolism (20 sources) Hyperlipidemia, unspecified; Translations: [Dyslipidemia] Onset: 2 Resolved: 5 08-12-2023 Chronic Essential hypertension (20 sources) Essential (primary) hypertension; Translations: [Essential hypertension] Onset: 4 06-15-2024 Chronic Fever of unknown origin (2 sources) Fever, unspecified; Translations: [FEVER UNSPECIFIED] Onset: 3 Episodic Mood disorders (14 sources) Depressive disorder; Translations: [Depression] Onset: 3 06-27-2023 Chronic Mycoses (2 sources) Pain in toe; Translations: [Tinea unguium] 12-31-2024 Episodic Nausea and vomiting (4 sources) Nausea with vomiting, unspecified; Translations: [NAUSEA WITH VOMITING UNSPECIFIED] Onset: 3 Episodic Nutritional deficiencies (16 sources) Cobalamin deficiency; Translations: [Deficiency of other specified B group vitamins] Onset: 3 08-12-2023 Episodic Osteoarthritis (20 sources) Unilateral primary osteoarthritis, right hip; Translations: [Arthritis of left acromioclavicular joint] Onset: 2 Chronic Other aftercare (1 source) group home (current) use of aspirin; Translations: [TRUSS DESIGNER CURRENT USE OF ASPIRIN] Onset: 3 Episodic Other diseases of veins and lymphatics (2 sources) Vascular insufficiency; Translations: [Venous insufficiency (chronic) (peripheral)] 12-31-2024 Episodic Other gastrointestinal disorders (1 source) Diarrhea, unspecified; Translations: [DIARRHEA UNSPECIFIED] Onset: 3 Episodic Other hereditary and degenerative nervous system conditions (15 sources) Mild cognitive impairment, so stated; Translations: [Mild cognitive impairment, so stated] Onset: 3 06-27-2023 Chronic Other screening for suspected conditions (not mental disorders or infectious disease) (16 sources) Patient encounter status; Translations: [Encounter for screening mammogram for malignant neoplasm of breast] Onset: 3 08-12-2023 Episodic Residual codes; unclassified (5 sources) Colon cancer screening declined; Translations: [Procedure and treatment not carried out because of patient's decision for unspecified reasons] Onset: 5 02-24-2025 Episodic Schizophrenia and other psychotic disorders (8 sources) Delusional disorder; Translations: [Delusional disorders] Onset: 5 11-24-2024 Chronic Spondylosis; intervertebral disc disorders; other back problems (2 sources) Other cervical disc degeneration, high cervical region; Translations: [Other intervertebral disc degeneration, lumbar region] Onset: 2 Chronic Thyroid disorders (16 sources) Hypothyroidism; Translations: [Hypothyroidism, unspecified] Onset: 3 [...] Episodic/Chronic Conditions associated with dizziness or vertigo (15 sources) Dizziness and giddiness; Translations: [Dizziness] Onset: 06-27-2023 06-27-2023 Episodic Heart valve disorders (15 sources) Cardiac murmur, unspecified; Translations: [Heart murmur] Onset: 09-02-2022 06-27-2023 Episodic Mood disorders (14 sources) Mood disorders Onset: 01-06-2024 Resolved: 02-24-2025 01-06-2024 Nonspecific chest pain (4 sources) Chest pain, unspecified; Translations: [CHEST PAIN UNSPECIFIED] Onset: 08-29-2022 Episodic Other circulatory disease (14 sources) Low blood pressure; Translations: [Hypotension, unspecified] Onset: 05-15-2014 Resolved: 11-24-2024 06-27-2023 Episodic Other injuries and conditions due to external causes (4 sources) History of falling; Translations: [HISTORY OF FALLING] Onset: 07-12-2022 Episodic Other lower respiratory disease (1 source) Shortness of breath; Translations: [SHORTNESS OF BREATH] Onset: 09-02-2022 Episodic Other non-traumatic joint disorders (14 sources) Pain in left shoulder; Translations: [Pain in joint, shoulder region] Onset: 06-27-2023 06-27-2023 Episodic Other nutritional; endocrine; and metabolic disorders (4 sources) Overweight; Translations: [OVERWEIGHT] Onset: 09-04-2022 Episodic Residual codes; unclassified (1 source) Family history of ischemic heart disease and other diseases of the circulatory system; Translations: [FAM HX ISCHEMIC HRT DZ OTH DZ CIRC] Onset: 09-02-2022 Episodic Residual codes; unclassified (14 sources) Confusional state; Translations: [Disorientation, unspecified] Onset: 07-31-2023 07-31-2023 Episodic Schizophrenia and other psychotic disorders (3 sources) Brief reactive psychosis; Translations: [Brief psychotic disorder] Onset: 06-30-2024 02-24-2025 Episodic Spondylosis; intervertebral disc disorders; other back problems (1 source) Cervicalgia; Translations: [CERVICALGIA] Onset: 09-12-2022 Episodic Unclassified (3 sources) Onset: 02-24-2025 02-24-2025 Viral infection (13 sources) Disease caused by 2019-nCoV; Translations: [COVID-19] Onset: 10-12-2024 10-12-2024 Episodic Results Test Name Value Interpretation Reference Range Facility URINALYSISon 08-08-2024 Amorphous sediment LM Ql (Urine sed) PRESENT Abnormal NONE [facility] Comment on above: Performed By: #### C BCA, HA1C, CMP, 22234-8, THYR, 3051-0 #### [facility] ([id number]) [address], [address] [place] [address] Bilirubin Ql (U) Negative Normal NEG [facility] Comment on above: Performed By: #### C BCA, HA1C, CMP, 26580-9, THYR, 3051-0 #### [facility] ([id number]) [address], [address] [place] [address] BLOOD/HGB Negative Normal NEG [facility] Comment on above: Performed By: #### C BCA, HA1C, CMP, 61150-4, THYR, 3051-0 #### [facility] ([id number]) [address], [address] [place] [address] Color (U) YELLOW Normal YELLOW [facility] Comment on above: Performed By: #### C BCA, HA1C, CMP, 03317-8, THYR, 3051-0 #### [facility] ([id number]) [address], [address] [place] [address] Glucose Ql (U) Negative Normal NEG [facility] Comment on above: Performed By: #### C BCA, HA1C, CMP, 33794-7, THYR, 3051-0 #### [facility] ([id number]) [address], [address] [place] [address] Ketones Ql (U) Trace Abnormal NEG [facility] Comment on above: Performed By: #### C BCA, HA1C, CMP, 16165-6, THYR, 3051-0 #### [facility] ([id number]) [address], [address] [place] [address] Leukocyte esterase Test strip Ql (U) Negative Normal NEG [facility] Comment on above: Performed By: #### C BCA, HA1C, CMP, 32417-7, THYR, 3051-0 #### [facility] ([id number]) [address], [address] [place] [address] Nitrite Ql (U) Negative Normal NEG [facility] Comment on above: Performed By: #### C BCA, HA1C, CMP, 18022-4, THYR, 3051-0 #### [facility] ([id number]) [address], [address] [place] [address] pH (U) 6.0 [pH] Normal 5.0-8.5 [facility] Comment on above: Performed By: #### C BCA, HA1C, CMP, 22705-2, THYR, 3051-0 #### [facility] ([id number]) [address], [address] [place] [address] Protein Ql (U) 30 mg/dL Abnormal NEG [facility] Comment on above: Performed By: #### C BCA, HA1C, CMP, 59394-9, THYR, 3051-0 #### [facility] ([id number]) [address] [place] [address] R.B.CELLS 0 /hpf Normal 0-5 [facility] Comment on above: Performed By: #### C BCA, HA1C, CMP, 39351-1, THYR, 3051-0 #### [facility] ([id number]) [address] [place] [address] Specific gravity (U) [Rel density] 1.020 Normal 1.003-1.035 [facility] Comment on above: Performed By: #### C BCA, HA1C, CMP, 64642-4, THYR, 3051-0 #### [facility] ([id number]) [address], [address] [place] [address] TURBIDITY HAZY Abnormal CLEAR [facility] Comment on above: Performed By: #### C BCA, HA1C, CMP, 71181-9, THYR, 3051-0 #### [facility] ([id number]) [address], [facility] [address] [place] [address] URIC ACID CRYSTALS PRESENT Abnormal NONE [facility] Comment on above: Performed By: #### C BCA, HA1C, CMP, 11231-7, THYR, 3051-0 #### [facility] ([id number]) [address], [facility] [address] [place] [address] Urobilinogen Qn (U) 0.2 {Quan'U}/dL Normal <1.1 [facility] Comment on above: Performed By: #### C BCA, HA1C, CMP, 22636-9, THYR, 3051-0 #### [facility] ([id number]) [address], [address] [place] [address] W.B.CELLS 20 /hpf High 0-5 [facility] Comment on above: Performed By: #### C BCA, HA1C, CMP, 61815-4, THYR, 3051-0 #### [facility] ([id number]) [address] [place] [address] WBC CASTS 1 /lpf High 0 [facility] Comment on above: Performed By: #### C BCA, HA1C, CMP, 30014-1, THYR, 305-0 #### [facility] ([id number]) [address] [address] URINE CULTUREon 08-08-2024 Bacteria identified Cx Nom (U) CULTURE RESULTS <10,000 ORGANISMS/ML NORMAL URO GENITAL DELMY Normal [facility] Comment on above: Performed By: #### C BCA, HA1C, CMP, 88611-4, THYR, 305-0 #### [facility] ([id number]) [address] [address] CBC AND AUTO DIFFon 08-05-20 24 Band form neutrophils/100 WBC (Bld) 38.0 % Normal [facility] Comment on above: Performed By: #### C MP, CBCA #### [facility] ([id number]) [address] [address] Erythrocyte distribution width (RBC) [Ratio] 13.6 % Normal 11.5-15.0 [facility] Comment on above: Performed By: #### C MP, CBCA #### [facility] ([id number]) [address] [address] Hematocrit (Bld) [Volume fraction] 37.6 % Normal 35-47 [facility] Comment on above: Performed By: #### C MP, CBCA #### [facility] ([id number]) [address] [place] [address] Hemoglobin (Bld) [Mass/Vol] 13.2 g/dL Normal 11.7-15.5 [facility] Comment on above: Performed By: #### C MP, CBCA #### [facility] ([id number]) [address], [address] [place] [address] Lymphocytes (Bld) [#/Vol] 0.5 10*3/uL Low 1.0-3.5 [facility] Comment on above: Performed By: #### C MP, CBCA #### [facility] ([id number]) [address] [place] [address] Lymphocytes/100 WBC (Bld) 10.0 % Normal [facility] Comment on above: Performed By: #### C MP, CBCA #### [facility] ([id number]) [address], [address] [place] [address] MCH (RBC) [Entitic mass] 32.8 pg Normal 27-34 [facility] Comment on above: Performed By: #### C MP, CBCA #### [facility] ([id number]) [address], [address] [place] [address] MCHC (RBC) [Mass/Vol] 35.1 g/dL Normal 32-36 [facility] Comment on above: Performed By: #### C MP, CBCA #### [facility] ([id number]) [address] [place] [address] MCV (RBC) [Entitic vol] 94 fL Normal 80-100 [facility] Comment on above: Performed By: #### C MP, CBCA #### [facility] ([id number]) [address], [address] [place] [address] Metamyelocytes/100 WBC (Bld) 2.0 % Normal [facility] Comment on above: Performed By: #### C MP, CBCA #### [facility] ([id number]) [address] [place] [address] Monocytes (Bld) [#/Vol] 0.6 10*3/uL Normal 0-0.9 [facility] Comment on above: Performed By: #### C MP, CBCA #### [facility] ([id number]) [address] [place] [address] Monocytes/100 WBC (Bld) 11.0 % Normal [facility] Comment on above: Performed By: #### C MP, CBCA #### [facility] ([id number]) [address], [address] [place] [address] NEUTROPHIL VACUOLES 1+ Abnormal NONE [facility] Comment on above: Performed By: #### C MP, CBCA #### [facility] ([id number]) [address], [address] [place] [address] Neutrophils (Bld) [#/Vol] 4.1 10*3/uL Normal 1.5-6.6 [facility] Comment on above: Performed By: #### C MP, CBCA #### [facility] ([id number]) [address], [address] [place] [address] Platelet mean volume (Bld) [Entitic vol] 9.8 fL Normal 7-12 [facility] Comment on above: Performed By: #### C MP, CBCA #### [facility] ([id number]) [address] [place] [address] Platelets (Bld) [#/Vol] 170 10*3/uL Normal 150-450 [facility] Comment on above: Performed By: #### C MP, CBCA #### [facility] ([id number]) [address], [address] [place] [address] RBC COUNT 4.01 X10E12/L Normal 3.80-5.20 [facility] Comment on above: Performed By: #### C DARINEL CBCA #### [facility] ([id number]) [address], [address] [place] [address] SEG NEUTROPHIL 39.0 % Normal [facility] Comment on above: Performed By: #### C DARINEL, CBCA #### [facility] ([id number]) [address], [address] [place] [address] WBC (Bld) [#/Vol] 5.3 10*3/uL Normal 4.0-11.0 [facility] Comment on above: Performed By: #### C DARINEL CBCA #### [facility] ([id number]) [address], [address] [place] [address] COMPREHENSIVE METABOLIC PANE Abhishek 08-05-2024 Albumin [Mass/Vol] 3.9 g/dL Normal 3.2-5.3 [facility] Comment on above: Performed By: #### C DARINEL CBCA #### [facility] ([id number]) [address], [address] [place] [address] ALP [Catalytic activity/Vol] 61 U/L Normal 39-130 [facility] Comment on above: Performed By: #### C DARINEL CBCA #### [facility] ([id number]) [address], [address] [place] [address] ALT [Catalytic activity/Vol] 23 U/L Normal 0-31 [facility] Comment on above: Performed By: #### C DARINEL CBCA #### [facility] ([id number]) [address], [address] [place] [address] Anion gap [Moles/Vol] 13 mmol/L Normal 5-15 [facility] Comment on above: Performed By: #### C DARINEL CBCA #### [facility] ([id number]) [address], [address] [place] [address] AST [Catalytic activity/Vol] 46 U/L High 0-41 [facility] Comment on above: Performed By: #### C PORSCHE TENA #### [facility] ([id number]) [address] [place] [address] Bilirubin [Mass/Vol] 1.1 mg/dL Normal 0.3-1.2 [facility] Comment on above: Performed By: #### C PORSCHE TENA #### [facility] ([id number]) [address] [place] [address] Calcium [Mass/Vol] 9.1 mg/dL Normal 8.5-10.5 [facility] Comment on above: Performed By: #### C PORSCHE TENA #### [facility] ([id number]) [address], [address] [place] [address] Chloride [Moles/Vol] 99 mmol/L Normal 98-109 [facility] Comment on above: Performed By: #### C PORSCHE TENA #### [facility] ([id number]) [address] [place] [address] CO2 [Moles/Vol] 21 mmol/L Low 22-32 [facility] Comment on above: Performed By: #### C PORSCHE TENA #### [facility] ([id number]) [address] [place] [address] Creatinine [Mass/Vol] 1.29 mg/dL High 0.40-1.00 [facility] Comment on above: Result Comment: METH OD TRACEABLE TO IDMS STANDARD Performed By: #### C PORSCHE TENA #### [facility] ([id number]) [address], [address] [place] [address] GFR/1.73 sq M.predicted among non-blacks MDRD (S/P/Bld) [Vol rate/Area] 44 mL/min/{1.73_m2} Low >59 [facility] Comment on above: Result Comment: Reported eGFR is based on the CKD-EPI 2020 equation that does not use a race coefficient. Performed By: #### C PORSCHE TENA #### [facility] ([id number]) [address] [place] [address] Glucose [Mass/Vol] 175 mg/dL High 65-99 [facility] Comment on above: Performed By: #### C PORSCHE TENA #### [facility] ([id number]) [address] [place] [address] Potassium [Moles/Vol] 3.3 mmol/L Low 3.5-5.0 [facility] Comment on above: Performed By: #### C PORSCHE TENA #### [facility] ([id number]) [address] [place] [address] Protein [Mass/Vol] 7.0 g/dL Normal 6.0-8.0 [facility] Comment on above: Performed By: #### C PORSCHE TENA #### [facility] ([id number]) [address] [place] [address] Sodium [Moles/Vol] 133 mmol/L Low 134-146 [facility] Comment on above: Performed By: #### C PORSCHE TENA #### [facility] ([id number]) [address] [place] [address] Urea nitrogen [Mass/Vol] 20 mg/dL Normal 5-27 [facility] Comment on above: Performed By: #### C PORSCHE TENA #### [facility] ([id number]) [address] [place] [address] CBC AND AUTO DIFFon 07-23-20 24 ABSOLUTE BASOPHIL 0.0 X10E9/L Normal 0.0-0.2 [facility] Comment on above: Performed By: #### C BCA, HA1C, CMP, 52597-2, THYR, 3051-0 #### [facility] ([id number]) [address], [address] [place] [address] ABSOLUTE NEUTROPHIL 2.4 X10E9/L Normal 1.5-6.6 [facility] Comment on above: Performed By: #### C BCA, HA1C, CMP, 36932-7, THYR, 3051-0 #### [facility] ([id number]) [address], [facility] [address] [place] [address] Basophils/100 WBC (Bld) 0.7 % Normal [facility] Comment on above: Performed By: #### C BCA, HA1C, CMP, 80180-8, THYR, 3051-0 #### [facility] ([id number]) [address], [address] [place] [address] Eosinophils (Bld) [#/Vol] 0.1 10*3/uL Normal 0.0-0.4 [facility] Comment on above: Performed By: #### C BCA, HA1C, CMP, 23525-0, THYR, 3051-0 #### [facility] ([id number]) [address] [address] [place] [address] Eosinophils/100 WBC (Bld) 2.1 % Normal [facility] Comment on above: Performed By: #### C BCA, HA1C, CMP, 70643-5, THYR, 3051-0 #### [facility] ([id number]) [address] [address] [place] [address] Erythrocyte distribution width (RBC) [Ratio] 13.8 % Normal 11.5-15.0 [facility] Comment on above: Performed By: #### C BCA, HA1C, CMP, 05273-4, THYR, 3051-0 #### [facility] ([id number]) [address] [address] [place] [address] Hematocrit (Bld) [Volume fraction] 35.9 % Normal 35-47 [facility] Comment on above: Performed By: #### C BCA, HA1C, CMP, 71505-5, THYR, 3051-0 #### [facility] ([id number]) [address] [address] [place] [address] Hemoglobin (Bld) [Mass/Vol] 12.5 g/dL Normal 11.7-15.5 [facility] Comment on above: Performed By: #### C BCA, HA1C, CMP, 91265-9, THYR, 3051-0 #### [facility] ([id number]) [address] [address] [place] [address] Lymphocytes (Bld) [#/Vol] 1.6 10*3/uL Normal 1.0-3.5 [facility] Comment on above: Performed By: #### C BCA, HA1C, CMP, 85392-7, THYR, 3051-0 #### [facility] ([id number]) [address] [address] [place] [address] Lymphocytes/100 WBC (Bld) 34.8 % Normal [facility] Comment on above: Performed By: #### C BCA, HA1C, CMP, 22253-2, THYR, 3051-0 #### [facility] ([id number]) [address] [address] [place] [address] MCH (RBC) [Entitic mass] 33.2 pg Normal 27-34 [facility] Comment on above: Performed By: #### C BCA, HA1C, CMP, 46345-0, THYR, 3051-0 #### [facility] ([id number]) [address] [address] [place] [address] MCHC (RBC) [Mass/Vol] 34.8 g/dL Normal 32-36 [facility] Comment on above: Performed By: #### C BCA, HA1C, CMP, 52425-4, THYR, 3051-0 #### [facility] ([id number]) [address], [address] [place] [address] MCV (RBC) [Entitic vol] 95 fL Normal 80-100 [facility] Comment on above: Performed By: #### C BCA, HA1C, CMP, 79670-9, THYR, 305-0 #### [facility] ([id number]) [address], [address] [place] [address] Monocytes (Bld) [#/Vol] 0.4 10*3/uL Normal 0-0.9 [facility] Comment on above: Performed By: #### C BCA, HA1C, CMP, 58961-5, THYR, 305-0 #### [facility] ([id number]) [address], [address] [place] [address] Monocytes/100 WBC (Bld) 9.7 % Normal [facility] Comment on above: Performed By: #### C BCA, HA1C, CMP, 93782-9, THYR, 305-0 #### [facility] ([id number]) [address], [address] [place] [address] Neutrophils/100 WBC (Bld) 52.7 % Normal [facility] Comment on above: Performed By: #### C BCA, HA1C, CMP, 86646-0, THYR, 305-0 #### [facility] ([id number]) [address], [address] [place] [address] Platelet mean volume (Bld) [Entitic vol] 8.6 fL Normal 7-12 [facility] Comment on above: Performed By: #### C BCA, HA1C, CMP, 59646-7, THYR, 3051-0 #### [facility] ([id number]) [address], [address] [place] [address] Platelets (Bld) [#/Vol] 251 10*3/uL Normal 150-450 [facility] Comment on above: Performed By: #### C BCA, HA1C, CMP, 54945-8, THYR, 3051-0 #### [facility] ([id number]) [address], [facility] [address] [place] [address] RBC COUNT 3.76 X10E12/L Low 3.80-5.20 [facility] Comment on above: Performed By: #### C BCA, HA1C, CMP, 89135-2, THYR, 3051-0 #### [facility] ([id number]) [address] [address] [place] [address] WBC (Bld) [#/Vol] 4.6 10*3/uL Normal 4.0-11.0 [facility] Comment on above: Performed By: #### C BCA, HA1C, CMP, 61063-7, THYR, 3051-0 #### [facility] ([id number]) [address] [address] [place] [address] COMPREHENSIVE METABOLIC PANE Abhishek 07-23-2024 Albumin [Mass/Vol] 4.1 g/dL Normal 3.2-5.3 [facility] Comment on above: Performed By: #### C BCA, HA1C, CMP, 08690-9, THYR, 3051-0 #### [facility] ([id number]) [address] [address] [place] [address] ALP [Catalytic activity/Vol] 69 U/L Normal 39-130 [facility] Comment on above: Performed By: #### C BCA, HA1C, CMP, 13325-2, THYR, 3051-0 #### [facility] ([id number]) [address], [address] [place] [address] ALT [Catalytic activity/Vol] 9 U/L Normal 0-31 [facility] Comment on above: Performed By: #### C BCA, HA1C, CMP, 09091-1, THYR, 3051-0 #### [facility] ([id number]) [address], [address] [place] [address] Anion gap [Moles/Vol] 9 mmol/L Normal 5-15 [facility] Comment on above: Performed By: #### C BCA, HA1C, CMP, 26453-1, THYR, 3051-0 #### [facility] ([id number]) [address], [address] [place] [address] AST [Catalytic activity/Vol] 18 U/L Normal 0-41 [facility] Comment on above: Performed By: #### C BCA, HA1C, CMP, 70959-4, THYR, 3051-0 #### [facility] ([id number]) [address], [address] [place] [address] Bilirubin [Mass/Vol] 1.1 mg/dL Normal 0.3-1.2 [facility] Comment on above: Performed By: #### C BCA, HA1C, CMP, 30110-5, THYR, 3051-0 #### [facility] ([id number]) [address], [address] [place] [address] Calcium [Mass/Vol] 9.4 mg/dL Normal 8.5-10.5 [facility] Comment on above: Performed By: #### C BCA, HA1C, CMP, 38035-7, THYR, 3051-0 #### [facility] ([id number]) [address], [address] [place] [address] Chloride [Moles/Vol] 107 mmol/L Normal 98-109 [facility] Comment on above: Performed By: #### C BCA, HA1C, CMP, 34260-8, THYR, 3051-0 #### [facility] ([id number]) [address], [address] [place] [address] CO2 [Moles/Vol] 28 mmol/L Normal 22-32 [facility] Comment on above: Performed By: #### C BCA, HA1C, CMP, 98917-6, THYR, 3051-0 #### [facility] ([id number]) [address], [address] [place] [address] Creatinine [Mass/Vol] 0.85 mg/dL Normal 0.40-1.00 [facility] Comment on above: Result Comment: METH OD TRACEABLE TO IDMS STANDARD Performed By: #### C BCA, HA1C, CMP, 28011-9, THYR, 305-0 #### [facility] ([id number]) [address], [address] [place] [address] GFR/1.73 sq M.predicted among non-blacks MDRD (S/P/Bld) [Vol rate/Area] 73 mL/min/{1.73_m2} Normal >59 [facility] Comment on above: Result Comment: Reported eGFR is based on the CKD-EPI 2020 equation that does not use a race coefficient. Performed By: #### C BCA, HA1C, CMP, 22160-1, THYR, 3051-0 #### [facility] ([id number]) [address], [address] [place] [address] Glucose [Mass/Vol] 90 mg/dL Normal 65-99 [facility] Comment on above: Performed By: #### C BCA, HA1C, CMP, 89344-5, THYR, 3051-0 #### [facility] ([id number]) [address] [address] [place] [address] Potassium [Moles/Vol] 4.0 mmol/L Normal 3.5-5.0 [facility] Comment on above: Performed By: #### C BCA, HA1C, CMP, 80940-8, THYR, 3051-0 #### [facility] ([id number]) [address], [address] [place] [address] Protein [Mass/Vol] 6.8 g/dL Normal 6.0-8.0 [facility] Comment on above: Performed By: #### C BCA, HA1C, CMP, 32103-4, THYR, 3051-0 #### [facility] ([id number]) [address], [address] [place] [address] Sodium [Moles/Vol] 144 mmol/L Normal 134-146 [facility] Comment on above: Performed By: #### C BCA, HA1C, CMP, 54904-4, THYR, 3051-0 #### [facility] ([id number]) [address], [address] [place] [address] Urea nitrogen [Mass/Vol] 19 mg/dL Normal 5-27 [facility] Comment on above: Performed By: #### C BCA, HA1C, CMP, 50073-0, THYR, 3051-0 #### [facility] ([id number]) [address], [address] [place] [address] FREE T3on 07-23-2024 Free T3 [Mass/Vol] 2.66 pg/mL Normal 2.50-3.90 [facility] Comment on above: Performed By: #### C BCA, HA1C, CMP, 08799-0, THYR, 3051-0 #### [facility] ([id number]) [address], [address] [place] [address] HGB A1C (GLYCO-HGB)on 2023 Glucose [Mass/Vol] 108 mg/dL Normal [facility] Comment on above: Performed By: #### C BCA, HA1C, CMP, 42092-6, THYR, 3051-0 #### [facility] ([id number]) [address], [address] [place] [address] HbA1c (Bld) [Mass fraction] 5.4 % Normal 4.4-5.6 [facility] Comment on above: Result Comment: NOTE ADA Guidelines Result HgbA1c Normal : less than 5.7 % Prediabetes : 5.7 % to 6.4 % Diabetes : > 6.4 % Use with caution in patients with abnormal hemoglobin variants as the half-life of red blood cells and in vivo glycation rates are affected. Performed By: #### C BCA, HA1C, CMP, 83445-1, THYR, 3051-0 #### [facility] ([id number]) [address] [facility], [facility] [address] [place] [address] Insulin Qnon 07-23-2024 INSULIN 7.91 uIU/mL Normal 1.00-23.00 [facility] Comment on above: Result Comment: Ref. range is for FASTING NON-DIABETIC POPULATION. Performed By: #### 2 0448-7 #### [facility] ([id number]) [address] [facility], [address] [place] [address] Lipid 1996 panelon 4 Cholesterol [Mass/Vol] 222 mg/dL High 150-200 [facility] Comment on above: Performed By: #### C BCA, HA1C, CMP, 32320-9, THYR, 3051-0 #### [facility] ([id number]) [address], [address] [place] [address] Cholesterol in HDL [Mass/Vol] 67 mg/dL Normal >39 [facility] Comment on above: Result Comment: HDL <40 mg/dL - High Risk HDL > or = 40mg/dL- Desirable HDL >60 mg/dL - Negative Risk Performed By: #### C BCA, HA1C, CMP, 68195-5, THYR, 3051-0 #### [facility] ([id number]) [address], [facility] [address] [place] [address] Cholesterol in LDL [Mass/Vol] 138 mg/dL High <130 [facility] Comment on above: Result Comment: LDL <100 mg/dL - Desirable LDL >160 mg/dL - High Risk Performed By: #### C BCA, HA1C, CMP, 32195-3, THYR, 3051-0 #### [facility] ([id number]) [address], [address] [address] Cholesterol in VLDL [Mass/Vol] 17 mg/dL Normal 0-30 [facility] Comment on above: Performed By: #### C BCA, HA1C, CMP, 73098-0, THYR, 3051-0 #### [facility] ([id number]) [address] [address] [place] [address] CHOLESTEROL:HDL 3.3 Normal 1.0-5.0 [facility] Comment on above: Performed By: #### C BCA, HA1C, CMP, 96944-3, THYR, 3051-0 #### [facility] ([id number]) [address] [address] [place] [address] Triglyceride [Mass/Vol] 86 mg/dL Normal 27-150 [facility] Comment on above: Performed By: #### C BCA, HA1C, CMP, 85378-9, THYR, 3051-0 #### [facility] ([id number]) [address] [address] [place] [address] THYROID PROFILEon 07-23-2024 Free T4 [Mass/Vol] 0.72 ng/dL Normal 0.61-1.60 [facility] Comment on above: Performed By: #### C BCA, HA1C, CMP, 85684-2, THYR, 3051-0 #### [facility] ([id number]) [address], [address] [place] [address] TSH 1.71 uIU/mL Normal 0.49-4.67 [facility] Comment on above: Performed By: #### C BCA, HA1C, CMP, 05667-3, THYR, 3051-0 #### [facility] ([id number]) [address], [address] [place] [address] MR BRAIN WO CONTon 4 MR BRAIN [...] Haskins MD on 09/26/2023 7:49 PM Normal [facility] Folate [Mass/volume] in Seru m or PlasmaOrdered By: Jorge Ladd on 09-03-2023 Folate [Mass/Vol] 15.2 ng/mL >5.9 [facility] Comment on above: Folate reference ran ge: >5.9 ng/mlThe WHO technical consultation on folate and vitamin [id number] has determined that folate concentrations lessthan 4 ng/ml are considered deficient. Thyrotropin [Units/volume] i n Serum or PlasmaOrdered By: Jorge Ladd on 09-03-2023 TSH Qn 1.89 m[IU]/L Normal 0.45-5.33 [facility] Comment on above: Result Comment: PERF ORMED BY: [facility] [address] [place] [address] PATHOLOGIST DEPUTY PROGRAM MANAGER LISSA SORIANO M.D. Performed By: #### T SH3, [id number] #### [facility] [address] Vit. B12/Folate Profileon Folate 15.2 ng/mL Normal >5.9 [facility] Comment on above: Result Comment: Mel te reference range: >5.9 ng/ml The WHO technical consultation on folate and vitamin b12 deficiencies has determined that folate concentrations less than 4 ng/ml are considered deficient. Performed By: #### T SH3, [id number] #### [address] Vitamin B12 ser/plasOrdered By: Jorge Ladd on 09-03-2023 Cobalamin (Vitamin B12) [Mass/Vol] 711 pg/mL Normal 180-914 [facility] Comment on above: Performed By: #### T SH3, [id number] #### [facility] [address] [place] [address] CBC AUTO DIFFon 12-20-2022 BASO # 0.0 103/ul Normal 0.0-0.1 [facility] Comment on above: Performed By: #### C BC ####[facility] [address] [place] [address]Dr. Veena Hernández Basophils/100 WBC (Bld) 0.1 % Critically low 0.2-2.0 [facility] Comment on above: Performed By: #### C BC ####[facility] [address] [place] [address]Dr. Veena Hernández EO # 0.1 103/ul Normal 0.0-0.7 [facility] Comment on above: Performed By: #### C BC ####[facility] [address] [place] [address]Dr. Veena Hernández Eosinophils/100 WBC (Bld) 1.2 % Normal 0.9-7.0 [facility] Comment on above: Performed By: #### C BC ####[facility] [address] [place] [address]Dr. Veena Hernández Erythrocyte distribution width (RBC) [Ratio] 13.2 % Normal 11.0-15.0 [facility] Comment on above: Performed By: #### C BC ####[facility] [address] [place] [address]DrLindsey Hernández Hematocrit (Bld) [Volume fraction] 38.4 % Normal 36.0-48.0 [facility] Comment on above: Performed By: #### C BC ####[facility] [address] [place], [place] [address]DrLindsey Hernández Hemoglobin (Bld) [Mass/Vol] 12.6 g/dL Normal 12.0-16.0 [facility] Comment on above: Performed By: #### C BC ####[facility] [address] [place], [place] [address]DrLindsey Hernández IG # 0.02 10e3/ul Normal 0.00-0.03 [facility] Comment on above: Performed By: #### C BC ####[facility] [address] [place], [place] [address]DrLindsey Hernández IG % 0.3 % Normal 0.0-0.5 [facility] Comment on above: Performed By: #### C BC ####[facility] [address] [place], [place] [address]DrLindsey Hernández LYMPH # 0.3 103/ul Critically low 1.2-3.8 [facility] Comment on above: Performed By: #### C BC ####[facility] [address] [place], [place] [address]DrLindsey Hernández Lymphocytes/100 WBC (Bld) 4.1 % Critically low 20.5-60.0 [facility] Comment on above: Performed By: #### C BC ####[facility] [address] [place], [place] [address]DrLindsey Hernández MANUAL DIFF REQ NO Normal [facility] Comment on above: Performed By: #### C BC ####[facility] [address] [place], [place] [address]DrLindsey Hernández MCH (RBC) [Entitic mass] 31.4 pg Normal 26.7-34.0 [facility] Comment on above: Performed By: #### C BC ####[facility] [address] [place] [address]DrLindsey Hernández MCHC (RBC) [Mass/Vol] 32.8 g/dL Normal 29.9-35.2 [facility] Comment on above: Performed By: #### C BC ####[facility] [address] [place], [place] [address]DrLindsey Hernández MCV (RBC) [Entitic vol] 95.8 fL Normal 81.0-99.0 [facility] Comment on above: Performed By: #### C BC ####[facility] [address] [place], [place] [address]DrLindsey Hernández MONO # 0.3 103/ul Normal 0.3-0.8 [facility] Comment on above: Performed By: #### C BC ####[facility] [address] [place], [place] [address]DrLindsey Hernández Monocytes/100 WBC (Bld) 3.8 % Normal 1.7-12.0 [facility] Comment on above: Performed By: #### C BC ####[facility] [address] [place], [place] [address]DrLindsey Hernández NEUT # 7.1 103/ul Critically high 1.4-6.5 [facility] Comment on above: Performed By: #### C BC ####[facility] [address] [place], [place] [address]DrLindsey Hernández Neutrophils/100 WBC (Bld) 90.5 % Critically high 43.0-75.0 [facility] Comment on above: Performed By: #### C BC ####[facility] [address] [place], [place] [address]DrLindsey Hernández Platelet mean volume (Bld) [Entitic vol] 9.8 fL Normal 9.5-13.5 [facility] Comment on above: Performed By: #### C BC ####[facility] [address] [place], [place] [address]Dr. Veena Hernández PLT 231 103/ul Normal 150-450 [facility] Comment on above: Performed By: #### C BC ####[facility] [address] [place], [place] [address]Ix. Veena Hernández RBC 4.01 106/ul Critically low 4.20-5.40 [facility] Comment on above: Performed By: #### C BC ####[facility] [address] [place], [place] [address]Qv. Veena Hernández WBC 7.8 103/ul Normal 4.0-11.0 [facility] Comment on above: Performed By: #### C BC ####[facility] [address] [place], [place] [address]We. Veena Hernández Covid-19 PCR (CVDTB)on SARS-CoV-2 (COVID-19) RNA ROGER+probe Ql (Unsp spec) Not detected Normal NOT DETECTED [facility] Comment on above: Result Comment: This test is not yet approved or cleared by the [place] FDA. When there are no FDA-approved or cleared tests available, and other criteria are met, FDA can make tests available under an emergency access mechanism called an Emergency Use Authorization (EUA). The EUA for this test is supported by the [employer] Programmer Analyst of Health and Human Service's (HHS's) declaration [...] with SARS-CoV-2. Performed By: #### C VDTBH ####[facility] [address] [place], [place] [address]Eu. Veena Hernández INFLUENZA A AND B AGon 12-20 INFLUANEGH SEE BELOW Normal [facility] Comment on above: Result Comment: Nega tive for Flu A protein angiten. Infection due to Flu A cannot be ruled out. Flu A angiten in the sample may be below the detection limit of the test. Performed By: #### I NFLUAB ####[facility] [address] [place], [place] [address]Dr. Valeha Edgar INFLUBNEGH SEE BELOW Normal [facility] Comment on above: Result Comment: Nega tive for Flu B protein antigen. Infection due to Flu B cannot be ruled out. Flu B antigen in the sample may be below the detection limit of the test. Performed By: #### I NFLUAB ####[facility] [address] [place], [place] [address]Dr. Veena Hernández INFLUENZA A AG Negative Normal NEGATIVE SEE COMMENT [facility] Comment on above: Performed By: #### I NFLUAB ####[facility] [address] [place], [place] [address]Dr. Veena Hernández INFLUENZA B AG Negative Normal NEGATIVE SEE COMMENT [facility] Comment on above: Performed By: #### I NFLUAB ####[facility] [address] [place], [place] [address]Dr. Veena Hernández LACTATE/LACTIC ACIDon 2022 Lactate [Moles/Vol] 0.7 mmol/L Normal 0.4-2.0 [facility] Comment on above: Performed By: #### L ACT ####[facility] [address] [place], [place] [address]Dr. Veena Hernández LIPASEon 12-20-2022 Lipase [Catalytic activity/Vol] 309.0 U/L Normal 73.0-393.0 [facility] Comment on above: Performed By: #### L IPA, HSTROPN, CMP ####[facility] [address] [place], [place] [address]Dr. Veena Hernández PROF 14(COMP METB)on 023 Albumin [Mass/Vol] 3.7 g/dL Normal 3.4-5.0 [facility] Comment on above: Performed By: #### L IPA, HSTROPN, CMP ####[facility] [address] [place] [address]Dr. Veena Hernández Albumin/Globulin [Mass ratio] 1.2 {ratio} Normal [facility] Comment on above: Performed By: #### L IPA, HSTROPN, CMP ####[facility] [address] [place] [address]Dr. Valeha Hernández ALP [Catalytic activity/Vol] 85 U/L Normal 46-116 [facility] Comment on above: Performed By: #### L IPA, HSTROPN, CMP ####[facility] [address] [place] [address]Dr. Veena Hernández ALT [Catalytic activity/Vol] 15 U/L Normal 14-59 [facility] Comment on above: Performed By: #### L IPA, HSTROPN, CMP ####[facility] [address] [place], [place] [address]Dr. Veena Hernández Anion gap [Moles/Vol] 11.2 mmol/L Normal [facility] Comment on above: Performed By: #### L IPA, HSTROPN, CMP ####[facility] [address] [place], [place] [address]Dr. Valeha Hernández AST [Catalytic activity/Vol] 15 U/L Normal 15-37 [facility] Comment on above: Performed By: #### L IPA, HSTROPN, CMP ####[facility] [id number] [place], [place] [address]Dr. Veena Hernández Bilirubin [Mass/Vol] 0.9 mg/dL Normal 0.2-1.0 [facility] Comment on above: Performed By: #### L IPA, HSTROPN, CMP ####[facility] [id number] [place], [place] [address]Dr. Veena Hernández Calcium [Mass/Vol] 8.7 mg/dL Normal 8.5-10.1 [facility] Comment on above: Performed By: #### L IPA, HSTROPN, CMP ####[facility] [id number] [place] [address]Dr. Veena Hernández Chloride [Moles/Vol] 104 mmol/L Normal 98-107 [facility] Comment on above: Performed By: #### L IPA HSTROPN, CMP ####[facility] [address] [place] [address]Dr. Veena Hernández CO2 [Moles/Vol] 27.8 mmol/L Normal 21.0-32.0 [facility] Comment on above: Performed By: #### L IPA HSTROPN, CMP ####[facility] [address] [place] [address]Dr. Veena Hernández Creatinine [Mass/Vol] 0.77 mg/dL Normal 0.55-1.02 [facility] Comment on above: Performed By: #### L IPA HSTROPN, CMP ####[facility] [address] [place] [address]Dr. Veena Hernández EGFR-AF BURKINAN >60 Normal >=60 [facility] Comment on above: Performed By: #### L IPA HSTROPN, CMP ####[facility] [address] [place] [address]Dr. Veena Hernández EGFR-NON AF BURKINAN >60 Normal >=60 [facility] Comment on above: Performed By: #### L IPA HSTROPN, CMP ####[facility] [address] [place] [address]Dr. Veena Hernández Globulin (S) [Mass/Vol] 3.2 g/dL Normal [facility] Comment on above: Performed By: #### L IPA HSTROPN, CMP ####[facility] [address] [place] [address]Dr. Veena Hernández Glucose [Mass/Vol] 121 mg/dL Critically high 74-106 T [facility] Comment on above: Performed By: #### L IPA HSTROPN, CMP ####[facility] [address] [place] [address]Dr. Valeha Hernández Potassium [Moles/Vol] 4.0 mmol/L Normal 3.5-5.1 [facility] Comment on above: Performed By: #### L IPA HSTROPN, CMP ####[facility] [address] [place] [id number]. Veena Hernández Protein [Mass/Vol] 6.9 g/dL Normal 6.4-8.2 [facility] Comment on above: Performed By: #### L IPA, HSTROPN, CMP ####[facility] [address] [place] [address]Dr. Veena Hernández Sodium [Moles/Vol] 139 mmol/L Normal 136-145 [facility] Comment on above: Performed By: #### L IPA, HSTROPN, CMP ####[facility] [address] [place] [address]Dr. Veena Hernández Urea nitrogen [Mass/Vol] 19.0 mg/dL Critically high 7.0-18.0 [facility] Comment on above: Performed By: #### L IPA, HSTROPN, CMP ####[facility] [address] [place] [address]Dr. Veena Hernández Urea nitrogen/Creatinine [Mass ratio] 24.7 mg/mg Normal [facility] Comment on above: Performed By: #### L IPA, HSTROPN, CMP ####[facility] [address] [place] [address]Dr. Veena Hernández SYMPTOMATIC COVID-19 ANTIGEN on 12-20-2022 EUA Statement SEE BELOW Normal The [facility] Comment on above: Result Comment: This test [...] revoked sooner. Performed By: #### C VDAGS ####[facility] [address] [place], [place] [address]Hh. Veena Hernández SARS-CoV-2 (COVID-19) RNA ROGER+probe Ql (Unsp spec) Negative Normal NEGATIVE [facility] Comment on above: Performed By: #### C VDAGS ####[facility] [address] [place], [place] [address]Nn. Veena Hernández TROPONIN, HIGH SENSITIVITYon 12-20-2022 HSTROP <4.0 Normal 4.0-51.3 [facility] Comment on above: Result Comment: CUT- OFF POINTS HAVE BEEN ESTABLISHED BASED ON THE FOURTH UNIVERSAL DEFINITIONS OF MYOCARDIAL INFARCTION. THE UPPER REFERENCE LIMIT (URL) OF TROPONIN, DEFINED THE 99TH PERCENTILE OF cTnI DISTRIBUTION IN A REFERENCE POPULATION, HAS BEEN CONFIRMED THE DECISION THRESHOLD FOR [place] DIAGNOSIS. Performed By: #### L IPA, HSTROPN, CMP ####[facility] [address] [place], [place] [address]Bl. Veena Hernández XR CSPINE 2_3 VIEWSon 2021 [...] 3. Stable surgical changes. Electronically authenticated by: ALEX SOLANO Date: 2022-09-05 17:06 Normal [facility] ECHOCARDIO M/2D COMPLETEon 1 10-30-2021 ECHOCARDIO M/2D COMPLETE Patient: KEVON CAMPOS Exam Date: 08/29/2022 : 1950 Gender:F Ordering : NEIDA TARIQ CNP Admission #: [id number] Family : Order #: [id number] CLICK HERE TO VIEW EXAM ECHOCARDIOGRAM REPORT [...] Haney M.D. on 08/30/2022 at 12:57 Normal [facility] STRESS/REST MULTIon 08-29 CO STRESS/REST MULTI Patient: KEVON CAMPOSLindsey Exam Date: 08/29/2022 : 1950 Gender:F Ordering : NEIDA TARIQ [facility] Admission #: [id number] Family : Order #: [id number] CLICK HERE TO VIEW EXAM RADIOLOGY REPORT [...] nuclear medicine myocardial perfusion scan. Dictated by: Alex Solano M.D. on 08/29/2022 at 15:43 Approved by: Alex Solano M.D. on 08/29/2022 at 15:58 Normal [facility] BNPon 08-01-2022 Natriuretic peptide B (Bld) [Mass/Vol] 41.0 pg/mL Normal <=900.0 [facility] Comment on above: Performed By: #### C K, CKMB, REINALDO, CMP, BNP, HSTROPN #### [facility] [address] [address] [address] Veena Hernández CBC AUTO DIFFon 08-01-2022 BASO # 0.0 103/ul Normal 0.0-0.1 [facility] Comment on above: Performed By: #### C BC ####[facility] [address] [place] [id number] Hernández Basophils/100 WBC (Bld) 0.8 % Normal 0.2-2.0 [facility] Comment on above: Performed By: #### C BC ####[facility] [address] [place] [id number]. Veena Hernández EO # 0.1 103/ul Normal 0.0-0.7 [facility] Comment on above: Performed By: #### C BC ####[facility] [address] [place] [id number]. Veena Hernández Eosinophils/100 WBC (Bld) 1.3 % Normal 0.9-7.0 [facility] Comment on above: Performed By: #### C BC ####[facility] [address] [place] [address]Dr. Veena Hernández Erythrocyte distribution width (RBC) [Ratio] 13.3 % Normal 11.0-15.0 [facility] Comment on above: Performed By: #### C BC ####[facility] [address] [place] [address]Dr. Veena Hernández Hematocrit (Bld) [Volume fraction] 39.3 % Normal 36.0-48.0 [facility] Comment on above: Performed By: #### C BC ####[facility] [address] [place], [place] [address]Dr. Veena Hernández Hemoglobin (Bld) [Mass/Vol] 12.9 g/dL Normal 12.0-16.0 [facility] Comment on above: Performed By: #### C BC ####[facility] [address] [place], [place] [address]Dr. Veena Hernández IG # 0.00 10e3/ul Normal 0.00-0.03 [facility] Comment on above: Performed By: #### C BC ####[facility] [address] [place], [place] [address]Dr. Veena Hernández IG % 0.0 % Normal 0.0-0.5 [facility] Comment on above: Performed By: #### C BC ####[facility] [address] [place], [place] [address]Dr. Veena Hernández LYMPH # 1.8 103/ul Normal 1.2-3.8 [facility] Comment on above: Performed By: #### C BC ####[facility] [address] [place], [place] [address]Dr. Veena Hernández Lymphocytes/100 WBC (Bld) 34.3 % Normal 20.5-60.0 [facility] Comment on above: Performed By: #### C BC ####[facility] [address] [place], [place] [address]Dr. Veena Hernández MANUAL DIFF REQ NO Normal [facility] Comment on above: Performed By: #### C BC ####[facility] [address] [place] [id number]. Veena Edgar MCH (RBC) [Entitic mass] 31.1 pg Normal 26.7-34.0 [facility] Comment on above: Performed By: #### C BC ####[facility] [address] [place] [phone]. Veena Edgar MCHC (RBC) [Mass/Vol] 32.8 g/dL Normal 29.9-35.2 [facility] Comment on above: Performed By: #### C BC ####[facility] [address] [place] [address]Dr. Veena Hernández MCV (RBC) [Entitic vol] 94.7 fL Normal 81.0-99.0 [facility] Comment on above: Performed By: #### C BC ####[facility] [address] [place], [place] [address]Dr. Veena Hernández MONO # 0.3 103/ul Normal 0.3-0.8 [facility] Comment on above: Performed By: #### C BC ####[facility] [address] [place], [place] [address]Dr. Veena Hernández Monocytes/100 WBC (Bld) 6.1 % Normal 1.7-12.0 [facility] Comment on above: Performed By: #### C BC ####[facility] [address] [place], [place] [address]Dr. Veena Hernández NEUT # 3.0 103/ul Normal 1.4-6.5 [facility] Comment on above: Performed By: #### C BC ####[facility] [address] [place], [place] [address]DrLindsey Hernández Neutrophils/100 WBC (Bld) 57.5 % Normal 43.0-75.0 [facility] Comment on above: Performed By: #### C BC ####[facility] [address] [place], [place] [address]DrLindsey Hernández Platelet mean volume (Bld) [Entitic vol] 9.8 fL Normal 9.5-13.5 [facility] Comment on above: Performed By: #### C BC ####[facility] [address] [place] [id number]. Veena Hernández PLT 227 103/ul Normal 150-450 [facility] Comment on above: Performed By: #### C BC ####[facility] [address] [place], [place] [address]Ij. Valeha Edgar RBC 4.15 106/ul Critically low 4.20-5.40 [facility] Comment on above: Performed By: #### C BC ####[facility] [address] [place] [id number]. Veena Hernández WBC 5.3 103/ul Normal 4.0-11.0 [facility] Comment on above: Performed By: #### C BC ####[facility] [address] [place] [id number] Hernández CKMBon 08-01-2022 CK.MB [Mass/Vol] 0.90 ng/mL Normal <=3.60 [facility] Comment on above: Performed By: #### C K, CKMB, REINALDO, CMP, BNP, HSTROPN #### [facility] [address] [address] [address] Veena Hernández CPKon 08-01-2022 CK [Catalytic activity/Vol] 66 U/L Normal 26-192 [facility] Comment on above: Performed By: #### C K, CKMB, REINALDO, CMP, BNP, HSTROPN #### [facility] [address] [address] [address] Veena Hernández MYOGLOBINon 08-01-2022 REINALDO 38 ng/mL Normal 9-82 [facility] Comment on above: Performed By: #### C K, CKMB, REINALDO, CMP, BNP, HSTROPN ####[facility] [address] [place] [address]DrLindsey Hernández PROF 14(COMP METB)on 022 Albumin [Mass/Vol] 4.0 g/dL Normal 3.4-5.0 [facility] Comment on above: Performed By: #### C K, CKMB, REINALDO, CMP, BNP, HSTROPN #### [facility] [address] [place] [address] Dr. Veena Hernández Albumin/Globulin [Mass ratio] 1.3 {ratio} Normal [facility] Comment on above: Performed By: #### C K, CKMB, REINALDO, CMP, BNP, HSTROPN #### [facility] [address] [place] [address] Dr. Veena Hernández ALP [Catalytic activity/Vol] 69 U/L Normal 46-116 [facility] Comment on above: Performed By: #### C K, CKMB, REINALDO, CMP, BNP, HSTROPN #### [facility] [address] [place] [address] Dr. Veena Hernández ALT [Catalytic activity/Vol] 15 U/L Normal 14-59 [facility] Comment on above: Performed By: #### C K, CKMB, REINALDO, CMP, BNP, HSTROPN #### [facility] [address] [place] [address] Dr. Veena Hernández Anion gap [Moles/Vol] 7.4 mmol/L Normal [facility] Comment on above: Performed By: #### C K, CKMB, REINALDO, CMP, BNP, HSTROPN #### [facility] [address] [place] [address] Dr. Veena Hernández AST [Catalytic activity/Vol] 14 U/L Critically low 15-37 [facility] Comment on above: Performed By: #### C K, CKMB, REINALDO, CMP, BNP, HSTROPN #### [facility] [address] [address] [address] Veena Hernández Bilirubin [Mass/Vol] 1.9 mg/dL Critically high 0.2-1.0 [facility] Comment on above: Performed By: #### C K, CKMB, REINALDO, CMP, BNP, HSTROPN #### [facility] [address] [place] [address] Dr. Veena Hernández Calcium [Mass/Vol] 9.4 mg/dL Normal 8.5-10.1 [facility] Comment on above: Performed By: #### C K, CKMB, REINALDO, CMP, BNP, HSTROPN #### [facility] [address] [place] [address] Dr. Veena Hernández Chloride [Moles/Vol] 106 mmol/L Normal 98-107 [facility] Comment on above: Performed By: #### C K, CKMB, REINALDO, CMP, BNP, HSTROPN #### [facility] [address] [address] [address] Veena Hernández CO2 [Moles/Vol] 32.3 mmol/L Critically high 21.0-32.0 [facility] Comment on above: Performed By: #### C K, CKMB, REINALDO, CMP, BNP, HSTROPN #### [facility] [address] [place] [address] Dr. Veena Hernández Creatinine [Mass/Vol] 0.80 mg/dL Normal 0.55-1.02 [facility] Comment on above: Performed By: #### C K, CKMB, REINALDO, CMP, BNP, HSTROPN #### [facility] [address] [place] [address] Dr. Veena Hernández EGFR-AF BURKINAN >60 Normal >=60 [facility] Comment on above: Performed By: #### C K, CKMB, REINALDO, CMP, BNP, HSTROPN #### [facility] [address] [address] [address] Veena Hernández EGFR-NON AF BURKINAN >60 Normal >=60 [facility] Comment on above: Performed By: #### C K, CKMB, REINALDO, CMP, BNP, HSTROPN #### [facility] [address] [place] [address] Dr. Veena Hernández Globulin (S) [Mass/Vol] 3.2 g/dL Normal [facility] Comment on above: Performed By: #### C K, CKMB, REINALDO, CMP, BNP, HSTROPN #### [facility] [address] [address] [address] Veena Hernández Glucose [Mass/Vol] 98 mg/dL Normal 74-106 [facility] Comment on above: Performed By: #### C K, CKMB, REINALDO, CMP, BNP, HSTROPN #### [facility] [address] [address] [address] Veena Hernández Potassium [Moles/Vol] 3.7 mmol/L Normal 3.5-5.1 [facility] Comment on above: Performed By: #### C K, CKMB, REINALDO, CMP, BNP, HSTROPN #### [facility] [address] [address] [address] Veena Hernández Protein [Mass/Vol] 7.2 g/dL Normal 6.4-8.2 [facility] Comment on above: Performed By: #### C K, CKMB, REINALDO, CMP, BNP, HSTROPN #### [facility] [address] [place] [address] Dr. Veena Hernández Sodium [Moles/Vol] 142 mmol/L Normal 136-145 [facility] Comment on above: Performed By: #### C K, CKMB, REINALDO, CMP, BNP, HSTROPN #### [facility] [address] [address] [address] Veena Hernández Urea nitrogen [Mass/Vol] 11.0 mg/dL Normal 7.0-18.0 [facility] Comment on above: Performed By: #### C K, CKMB, REINALDO, CMP, BNP, HSTROPN #### [facility] [address] [place] [address] Dr. Veena Hernández Urea nitrogen/Creatinine [Mass ratio] 13.8 mg/mg Normal [facility] Comment on above: Performed By: #### C K, CKMB, REINALDO, CMP, BNP, HSTROPN #### [facility] [address] [place] [address] Dr. Veena Hernández TROPONIN, HIGH SENSITIVITYon 08-01-2022 HSTROP 5.0 pg/mL Normal 4.0-51.3 [facility] Comment on above: Result Comment: CUT- OFF POINTS HAVE BEEN ESTABLISHED BASED ON THE FOURTH UNIVERSAL DEFINITIONS OF MYOCARDIAL INFARCTION. THE UPPER REFERENCE LIMIT (URL) OF TROPONIN, DEFINED THE 99TH PERCENTILE OF cTnI DISTRIBUTION IN A REFERENCE POPULATION, HAS BEEN CONFIRMED THE DECISION THRESHOLD FOR [place] DIAGNOSIS. Performed By: #### C K, CKMB, REINALDO, CMP, BNP, HSTROPN #### [facility] [address] [address] [address] Veena Hernández XR CHEST 2 Von [...] evaluation if clinically indicated. Electronically authenticated by: ALEX SOLANO Date: 2022-08-01 10:19 Normal [facility] XR LSPINE 2_3 VIEWSon 2021 XR LSPINE [...] by: CARLOS KEMP Date: 2022-07-12 19:26 Normal [facility] XR HIP RT INJon 04-03-2022 XR HIP [...] resolution of patient's pain. Electronically authenticated by: AELX SOLANO Date: 2022-04-03 09:18 Normal [facility] Vital Signs Date Time Vital Sign Value Performing Clinician Fady curtis 02-24-2025 09:39-0400 Body mass index (BMI) [Ratio] 30.91 kg/m2 Evelyn Tariq V [employer] Work Phone: [facility] 02-24-2025 09:39-0400 Body temperature 98.6 [degF] Evelyn Chandni [employer] Work Phone: [facility] 02-24-2025 09:39-0400 Body weight 74.21 kg Evelyn Tariq V [employer] Work Phone: [facility] 02-24-2025 09:39-0400 Diastolic blood pressure 88 mm[Hg] Evelyn Tariq V [employer] Work Phone: [facility] 02-24-2025 09:39-0400 Heart rate 78 /min Evelyn Tariq V [employer] Work Phone: [facility] 02-24-2025 09:39-0400 Respiratory rate 18 /min Evelyn Tariq V [employer] Work Phone: [facility] 02-24-2025 09:39-0400 SaO2% (BldA) [Mass fraction] 97 % Evelyn Tariq V [employer] Work Phone: [facility] 02-24-2025 09:39-0400 Systolic blood pressure 138 mm[Hg] Evelyn Piñavictor m V [employer] Work Phone: [facility] 12-31-2024 11:53-0400 Body height 154.9 cm Dave Ambrocio DPM Work Phone: [facility] 12-31-2024 11:53-0400 Body mass index (BMI) [Ratio] 27.4 kg/m2 Dave Brown DPM Work Phone: [facility] 12-31-2024 11:53-0400 Body weight 65.77 kg Dave Ambrocio DPM Work Phone: [facility] 12-31-2024 11:53-0400 Respiratory rate 18 /min Dave Ambrocio DPM Work Phone: [facility] 10-12-2024 09:52-0500 Body height 154.9 cm Dominique Urbano [employer] Work Phone: [facility] 10-12-2024 09:52-0500 Body mass index (BMI) [Ratio] 27.21 kg/m2 Dominique Urbano [employer] Work Phone: [facility] 10-12-2024 09:52-0500 Body temperature 97.2 [degF] Dominique Urbano V [employer] Work Phone: [facility] 10-12-2024 09:52-0500 Body weight 65.32 kg Dominique Urbano V [employer] Work Phone: [facility] 10-12-2024 09:52-0500 Diastolic blood pressure 74 mm[Hg] Dominique Rubano V [employer] Work Phone: [facility] 10-12-2024 09:52-0500 Heart rate 80 /min Dominique Urbano V [employer] Work Phone: [facility] 10-12-2024 09:52-0500 Respiratory rate 16 /min Dominique Urbano V [employer] Work Phone: [facility] 10-12-2024 09:52-0500 SaO2% (BldA) [Mass fraction] 98 % Dominique Urbano V [employer] Work Phone: [facility] 10-12-2024 09:52-0500 Systolic blood pressure 132 mm[Hg] Dominique Urbano V [employer] Work Phone: [facility] Healthcare Encounters Encounter Date Encounter Type Care Provider Facility Start: 02-24-2025 End: 02-24-2025 Refill Evelyn Chandni [employer] Work Phone: [facility] Comment on above: Mild intermittent as thma with status asthmaticus (CMS/HCC) Start: 02-24-2025 End: 02-24-2025 Patient encounter procedure Evelyn Tariq V [employer] Work Phone: [facility] Comment on above: Encounter for subseq uent annual wellness visit (AWV) in Medicare patient (Primary Dx); 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); Primary hypertension (CMS/HCC); B12 deficiency; Hypothyroidism, unspecified type (CMS/HCC); Mixed hyperlipidemia (CMS/HCC); Screening mammogram, encounter for; Colon cancer screening declined; Dyslipidemia (CMS/HCC) Start: 02-03-2025 End: 02-03-2025 Refill Evelynerwin Tariq [employer] [facility] Comment on above: Mild intermittent as thma with status asthmaticus (CMS/HCC) Start: 01-04-2025 End: 01-05-2025 Refill Evelyn Chandni [employer] Work Phone: [facility] Comment on above: Primary hypertension (CMS/HCC); Dyslipidemia (CMS/HCC); 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); Mild intermittent asthma with status asthmaticus (CMS/HCC) Start: 12-31-2024 End: 12-31-2024 Aurelioboo flowsbrianna Ambrocio DPM Work Phone: [facility] Start: 12-31-2024 End: 12-31-2024 Bamboo flowsheet Dave Ambrocio DPM Work Phone: [facility] Start: 12-31-2024 End: 12-31-2024 ambulatory DAVE AMBROCIO Not Available Start: 12-31-2024 End: 12-31-2024 Office outpatient new 30 minutes Dave Ambrocio DPM Work Phone: [facility] Comment on above: Venous insufficiency (Primary Dx); Pain due to onychomycosis of toenails of both feet Start: 11-24-2024 End: 11-24-2024 ambulatory EVELYN PIÑAVICTOR M Not Available Start: 11-05-2024 End: 11-05-2024 Refill Dominique Urbano [employer] Work Phone: [facility] Comment on above: 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) Start: 10-12-2024 End: 10-12-2024 Bamboo flowsheet Dominique Urbano V [employer] Work Phone: [facility] Start: 10-12-2024 End: 10-12-2024 Bamboo flowsheet Dominique Urbano V [employer] Work Phone: [facility] Start: 10-12-2024 End: 10-12-2024 Office outpatient visit 15 minutes Dominique Urbano V [employer] Work Phone: [facility] Comment on above: COVID-19 (Primary Dx ); Dyslipidemia (CMS/HCC); Primary hypertension (CMS/HCC) Start: 10-12-2024 End: 10-12-2024 ambulatory DOMINIQUE URBANO Not Available Start: 09-29-2024 End: 09-29-2024 Orders Only Dominique Urbano V [employer] Work Phone: [facility] Comment on above: 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) (Primary Dx) Start: 08-08-2024 End: 08-08-2024 ambulatory [facility] Start: 08-05-2024 End: 08-05-2024 ambulatory [facility] Start: 07-23-2024 End: 07-23-2024 ambulatory [facility] Start: 06-15-2024 End: 06-15-2024 Sandeep Urbano NP Work Phone: [facility] Comment on above: Primary hypertension (CMS/HCC) Start: 04-14-2024 End: 04-14-2024 ambulatory SHAIKH NATALIA Not Available Start: 01-06-2024 End: 01-06-2024 ambulatory SHAIKH NATALIA Not Available Start: 10-16-2023 End: 10-16-2023 [facility] Start: 09-26-2023 End: 09-26-2023 ambulatory JORGE Rolo LADD [facility] Start: 09-03-2023 End: 09-03-2023 ambulatory Shaikh Natalia Facility:[facility] Start: 09-03-2023 End: 09-03-2023 ambulatory MD Shaikh Fisher Work Phone: [facility] Work Phone: Start: 09-03-2023 End: 09-03-2023 Patient encounter procedure MD Shaikh Fisher Work Phone: [facility] [place] Work Phone: Start: 12-20-2022 End: 12-20-[address] GEOFFREY COPELAND . Facility:[facility] Start: 10-16-2022 End: 10-31-2022 ambulatory SHAIKH Deon FISHER Facility:[facility] Start: 09-16-2022 End: 09-17-2022 ambulatory SHAIKH Deon FISHER Facility:[facility] Start: 09-06-2022 End: 09-15-2022 ambulatory SHAIKH Deon NATALIA Facility:[facility] Start: 09-04-2022 End: 09-05-[address] ALEX SOLANO Facility:[facility] Start: 08-29-2022 End: 08-30-2022 ambulatory NEIDA EVELYN CHANDNI Facility:[facility] Start: 08-01-2022 End: 08-02-2022 ambulatory SURVEILLANCE MANAGER EVELYN TARQI Facility:[facility] Start: 07-12-2022 End: 07-13-2022 ambulatory SHAIKH Deon NATALIA Facility:[facility] Start: 04-03-2022 End: 04-03-[address] MIRELLA GUEVARA Facility:[facility] Procedures Date Procedure Procedure Detail Performing Clinician Start: 08-27-2023 Mammography Dmoinique desai [employer] Work Phone: Plan of Treatment Date Care Activity Detail Author Start: 03-01-2026 End: 03-01-2026 Patient encounter procedure 03/01/2026 10:30 AM EDT Office Visit [facility] [address] [place] [phone] Evelyn Tariq NP [address] [place] [id number] [facility] Start: 02-24-2026 Screening for malign ant neoplasm of colon Colorectal Cancer Screening [facility] Comment on above: Postponed from 01/07 (Patient Refused) Start: 05-31-2025 End: 05-31-2025 Patient encounter procedure 05/31/2025 9:40 AM EDT Office Visit [facility] [address] [place] [phone] Evelyn Tariq NP [address] [place] [id number] [facility] Start: 03-11-2025 End: 03-11-2025 Patient encounter procedure 03/11/2025 11:30 AM EDT Procedure Visit [facility] [address] [facility] [address] [place] [id number] Dave Ambrocio DPM [address] [facility] [address] [place] [address] [facility] Start: 02-24-2025 End: 02-24-2026 CBC W Auto Differential panel - Blood CBC and differential Lab Routine 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) B12 deficiency Hypothyroidism, unspecified type (CMS/HCC) Expected: 02/24/2025 (Approximate), Expires: 02/24/2026 [facility] Work Phone: Comment on above: Expected: 02/24/2025 (Approximate), Expires: 02/24/2026 Start: 02-24-2025 End: 02-24-2026 Cobalamin (Vitamin B12) [Mass/volume] in Serum or Plasma Vitamin B12 Lab Routine 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) B12 deficiency Expected: 02/24/2025 (Approximate), Expires: 02/24/2026 [facility] Comment on above: Expected: 02/24/2025 (Approximate), Expires: 02/24/2026 Start: 02-24-2025 End: 02-24-2026 Comprehensive metabolic 2000 panel - Serum or Plasma Comprehensive metabolic panel Lab Routine Primary hypertension (CMS/HCC) Mixed hyperlipidemia (CMS/HCC) Expected: 02/24/2025 (Approximate), Expires: 02/24/2026 [facility] Comment on above: Expected: 02/24/2025 (Approximate), Expires: 02/24/2026 Start: 02-24-2025 End: 02-24-2026 Lipid 1996 panel - Serum or Plasma Lipid panel Lab Routine Mixed hyperlipidemia (CMS/HCC) Expected: 02/24/2025 (Approximate), Expires: 02/24/2026 [facility] Comment on above: Expected: 02/24/2025 (Approximate), Expires: 02/24/2026 Start: 02-24-2025 End: 04-26-2026 MG Breast - bilateral Screening Bilateral screening mammogram Imaging Routine Screening mammogram, encounter for Expected: 02/24/2025 (Approximate), Expires: 04/26/2026 [facility] Comment on above: Expected: 02/24/2025 (Approximate), Expires: 04/26/2026 Start: 02-24-2025 End: 02-24-2026 Microalbumin/Creatinine panel in random Urine Microalbumin / creatinine, urine ratio Lab Routine Primary hypertension (CMS/HCC) Expected: 02/24/2025 (Approximate), Expires: 02/24/2026 [facility] Comment on above: Expected: 02/24/2025 (Approximate), Expires: 02/24/2026 Start: 02-24-2025 End: 02-24-2026 Thyrotropin [Units/volume] in Serum or Plasma TSH Lab Routine Hypothyroidism, unspecified type (CMS/HCC) Expected: 02/24/2025 (Approximate), Expires: 02/24/2026 [facility] Comment on above: Expected: 02/24/2025 (Approximate), Expires: 02/24/2026 Start: 02-24-2025 End: 02-24-2026 Thyroxine (T4) free [Mass/volume] in Serum or Plasma T4, free Lab Routine Hypothyroidism, unspecified type (CMS/HCC) Expected: 02/24/2025 (Approximate), Expires: 02/24/2026 [facility] Comment on above: Expected: 02/24/2025 (Approximate), Expires: 02/24/2026 Start: 02-24-2025 End: 02-24-2026 Urinalysis complete panel - Urine Urinalysis with reflex microscopic (clean catch) Lab Routine Primary hypertension (CMS/HCC) Expected: 02/24/2025 (Approximate), Expires: 02/24/2026 [facility] Comment on above: Expected: 02/24/2025 (Approximate), Expires: 02/24/2026 Start: 02-24-2025 End: 02-24-2025 Patient encounter procedure 02/24/2025 10:00 AM EDT Office Visit [facility] [address] [place] [address] Evelyn Tariq NP [address] [place] [address] [facility] Start: 01-05-2025 Medicare Annual Wellness (AWV) Medicare Annual Wellness (AWV) [facility] Start: 12-31-2024 End: 12-31-2024 Patient encounter procedure 12/31/2024 11:30 AM EDT Office Visit [facility] [address] [facility] [address] [place] [id number] Dave Ambrocio, DPTiesha [address] [facility] [address] [place] [address] [facility] Start: 11-24-2024 End: 11-24-2024 Patient encounter procedure 11/24/2024 9:20 AM EDT Office Visit [facility] [address] [place] [address] Evelyn Tariq NP [address] [place] [phone] [facility] Start: 11-16-2024 End: 11-16-2024 Patient encounter procedure 11/16/2024 10:00 AM EST Office Visit [facility] [address] [place] [address] Dominique Urbano NP [address] [place] [address] [facility] Start: 10-12-2024 End: 10-12-2024 Patient encounter procedure 10/12/2024 10:00 AM EST Office Visit [facility] [address] [place] [address] Dominique Urbano, AJIT [address] [place] [address] Arrived [facility] Comment on above: Arrived Start: 08-27-2024 Screening for malign ant neoplasm of breast Mammogram [facility] Start: 08-17-2024 End: 08-17-2024 Patient encounter procedure 08/17/2024 10:30 AM EST Office Visit [facility] [address] [place] [address] Dominique Urbano, AJIT [address] [place] [address] [facility] Start: 05-17-2024 Influenza vaccination Influenza Vacc ine (#1) [facility] Start: 09-16-2023 Screening for malign ant neoplasm of colon [facility] Start: 07-16-2009 Pneumococcal Vaccine : 65+ Years (2 of 2 - PCV) Pneumococcal Vaccine: 65+ Years (2 of 2 - PCV) [facility] Start: 1950 Screening for malign ant neoplasm of colon [facility] Immunizations Immunization Date Immunization Notes Care Provider Fa cility 12-02-2024 Pneumococcal Conjuga te PCV 20 Evelyn Chandni [facility] [employer] Work Phone: [facility] 12-02-2024 tetanus toxoid, redu kirby diphtheria toxoid, and acellular pertussis vaccine, adsorbed Evelyn Tariq [employer] Work Phone: [facility] 12-02-2024 zoster vaccine recombinant Evelyn Chandni [employer] Work Phone: [facility] 07-11-2024 influenza, high dose seasonal, preservative-free Dave Ambrocio DPM Work Phone: [facility] 07-11-2024 SARS-COV-2 (COVID-19 ) vaccine, mRNA, spike protein, LNP, PF, kristi-sucrose, 30 mcg/0.3 mL Dave Ambrocio DPM Work Phone: [facility] 07-13-2023 Influenza, High-dose Seasonal, Quadrivalent, Preservative Free Dave Ambrocio DPM Work Phone: [facility] 07-13-2023 influenza virus vacc ine, unspecified formulation Dominique Betancourtzpatrick [facility] [employer] Work Phone: [facility] 09-02-2015 zoster vaccine, live Linda holcomb Urbano [employer] Work Phone: [facility] 09-14-2014 influenza, injectabl e, quadrivalent, contains preservative Dave Ambrocio DPM Work Phone: [facility] 07-16-2008 pneumococcal polysaccharide vaccine, 23 valent Dominique Urbano [employer] Work Phone: [facility] Payers Date Payer Category Payer Medicare (Managed Care) [employer] [id number] 2023 Unknown [employer] D [employer] [id number] 2023-Present [address] [place] [phone] [id number] 2023 Medicare [id number] 2023 Self-pay 1959 Unknown [id number] 1959 Unknown [id number] 1952 Unknown [id number] 2.16.840.1.191137.3.579. 2.593 1952 Unknown [id number] 2.16.840.1.544825.3.579. 2.593 1952 Unknown [id number] 2.16.840.1.995686.3.579. 2.593 1952 Unknown [id number] 2.16.840.1.274952.3.579. 2.593 1952 Unknown [id number] 2.16.840.1.487599.3.579. 2.593 1952 Unknown [id number] 2.16.840.1.179821.3.579. 2.593 1952 Unknown [id number] 2.16.840.1.967376.3.579. 2.593 1952 Unknown [id number] 2.16.840.1.543771.3.579. 2.593 1952 Unknown [id number] 2.16.840.1.903665.3.579. 2.593 1952 Unknown [id number] 2.16.840.1.233536.3.579. 2.1286 1952 Unknown [id number] 2.16.840.1.398783.3.579. 2.1286 1952 Unknown [id number] 2.16.840.1.008441.3.579. 2.1286 1952 Unknown [id number] 2.16.840.1.134478.3.579. 2.1286 1952 Unknown [id number] 2.16.840.1.474395.3.579. 2.1286 1952 Unknown [id number] 2.16.840.1.400108.3.579. 2.1286 1952 Unknown [id number] 2.16.840.1.819495.3.579. 2.1259 1952 Unknown [id number] 2.16.840.1.142566.3.579. 2.1259 1952 Unknown [id number] 2.16.840.1.292235.3.579. 2.1259 1952 Unknown [id number] 2.16.840.1.335821.3.579. 2.1259 1952 Unknown [id number] 2.16.840.1.864894.3.579. 2.1259 Medicare Medicare [id number] Unknown [id number] 2.16.840.1.038395.3.579. 2.531 Social History Date Type Detail Facility Tobacco smoking stat [facility] Unknown if ever smoked [facility] Work Phone: Start: 1950 Sex Assigned At Female [facility] Start: 01-06-2024 Tobacco smoking stat [facility] Never smoked tobacco [facility] Start: 01-06-2024 Tobacco use and exposure Smoke less tobacco non-user [facility] Start: 04-14-2024 End: 02-24-2025 Alcoholic beverage intake Lifetime non-drinker (finding) [facility] Start: 08-12-2023 End: 02-24-2025 History of Social function [facility] Start: 08-12-2023 End: 02-24-2025 Humiliation, Afraid, Rape, and Kick questionnaire [HARK] [...] [OSQ] Very much [facility] (I/We) worried wheth er (my/our) food would run out before (I/we) got money to buy more. Never true [facility] Start: 1950 Sex assigned at Not on file N [facility] NEGATED: Highlighted rowStart: NINF History of tobacco use Passive smoker [facility] Functional Status Date Assessment Result Facility 02-24-2025 Patient Health [facility] ionnaire 2 item (PHQ-2) [Reported] [facility] Clinical Notes 11-10-2021 to 02-24-2025 Evelyn Tariq, AJIT - 02/24/2025 10:00 AM Jj Tariq, [facility] [employer] - 02/24/2025 6:32 AM Jj Tariq, [facility] [employer] - 02/24/2025 6:26 AM Jj Traiq, [facility] [employer] - 02/24/2025 6:25 AM EDTPatient Instructions Note Date & Type Note Facility 02-24-2025 History of Presen t illness Narrative Images from the original note were not included. Kevon Campos is a 75 y.o. female presents [...] Diagnosis Date Asthma Chest pain Chronic depression ([facility]) ; Was poorly controlled and was previously started on bupropion Tolerating it without adverse effects Dyspnea Family history of heart disease Hypertension ([facility]) Hypothyroidism, adult ([facility]) was previously treated with 25 mcg of cytomel TSH at goal Low back pain Chronic low back pain. No red flags Improved with flexeril and lidocaine cream Meniere disease, left Patient presents with intermittent dizziness, vertigo and associated ringing sensation in left ear. Symptoms are intermittent, going on for years. Resolved with meclizine and vestibular rehab and now recurred. She could not see ENT due to Dr Molina snf. Mild cognitive impairment with memory loss Mild [...] and SOB -who ordered lab work, EKG, ECHO and Lexiscan for her - labs/results reviewed and d/w patient. I think her SOB is likely from poorly controlled asthma. She had PFTs performed 2 years [...] (B/L GREAT TOE SX) HIATAL HERNIA REPAIR 1982 SHOULDER ARTHROSCOPY Right [address] GUEVARA SHOULDER SURGERY 1970 TONSILLECTOMY 1960 TOTAL KNEE ARTHROPLASTY Bilateral PER DR. SINGH (2000, 2002) family history includes Heart disease in her father and mother; Hypertension in her father and mother; Other in her mother; Stroke in her mother. OBJECTIVE: Visit Vitals BP 138/88 (BP Location: Left arm, Patient Position: Sitting, BP Cuff Size: Adult long) Pulse 78 Temp 98.6 F (Temporal) Resp 18 Wt 163 lb 9.6 oz SpO2 97% BMI 30.91 kg/m Smoking Status Never BSA 1.79 m Physical Exam Vitals and nursing note reviewed. [...] yearly and prn Colon cancer screening declined Associated Problem(s): Encounter for subsequent annual wellness visit (AWV) in Medicare patient Reviewed Ht/Wt/BMI Recommend eye exam yearly Recommend dental exams twice a year Balance work/leisure activities Exercises is recommended most days of the week (appropriate as chronic conditions allow) Follow up yearly and prn Associated Problem(s): Hyperlipidemia (CMS/HCC) On statin therapy Check labs yearly and prn dose changes Associated Problem(s): Hypothyroid (CMS/HCC) Check labs , does not currently take any supplement Associated Problem(s): B12 deficiency Check labs Associated Problem(s): Hypertension (CMS/HCC) Please check blood pressure daily and record DASH diet Limit caffeine Take medication as directed Contact office if chest pain, pressure, dizziness, shortness of breath, swelling legs Recommend slow position changes Current meds: losartan Associated Problem(s): 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) Does not follow with neurology Is taking remeron and risperidone Spouse feels things are going well documented in this encounter [facility] 02-24-2025 Instructions Evelyn Tariq NP - 02/24/2025 10:00 AM EDT Mammogram I will fax over to [facility]: they should call you for this [phone] Labs: fasting documented in this encounter [facility] 01-04-2025 Telephone encounter Note Mirtazapine 7.5 mg once at night. I didn't see this one listed. PAUL [facility] 01-04-2025 Miscellaneous Notes Mirtazapine 7.5 mg once at night. I didn't see this one listed. PAUL documented in this encounter [facility] 12-31-2024 History of Presen t illness Narrative Patient: Kevon Campos : 1950 PCP: Qi Andrade MD SUBJECTIVE This is a 74 y.o. female that presents today with a CC of elongated, thick nails. Pt states nails have been elongated and thick for many years and cause pain with ambulation in shoegear. Pt has tried previous treatment with minimal relief. Pt presents today for nail care and treatment. Pt also presents today for secondary complaint of swelling to b/l ankle regions and feet. They state that condition is starting to worsten have tried no treatments for the condition. States swelling worstens with prolonged standing activities. Allergies: Allergies Allergen Reactions Morphine Itching Other Reaction(s): Hallucinations Oxycodone-Acetaminophen Itching Wound Dressing Adhesive Other Reaction(s): Other (See Comments) redness Past Medical History: Past Medical History: Diagnosis Date Asthma Chest pain Chronic depression ([facility]) ; Was poorly controlled and was previously started on bupropion Tolerating it without adverse effects Dyspnea Family history of heart disease Hypertension ([facility]) Hypothyroidism, adult ([facility]) was previously treated with 25 mcg of cytomel TSH at goal Low back pain Chronic low back pain. No red flags Improved with flexeril and lidocaine cream Meniere disease, left Patient presents with intermittent dizziness, vertigo and associated ringing sensation in left ear. Symptoms are intermittent, going on for years. Resolved with meclizine and vestibular rehab and now recurred. She could not see ENT due to Dr Molina snf. Mild cognitive impairment with memory loss Mild [...] and SOB -who ordered lab work, EKG, ECHO and Lexiscan for her - labs/results reviewed and d/w patient. I think her SOB is likely from poorly controlled asthma. She had PFTs performed 2 years that showed mod persistent asthma. She is not compliant with Pulmicort. She is now agreeable to use Symbicort which I will prescribe today Obesity with body mass index (BMI) of 30.0 to 39.9 SOB (shortness of breath) Medications: Current Outpatient Medications: albuterol HFA 90 mcg/act inhaler, INHALE 2 PUFFS BY MOUTH EVERY 6 HOURS NEEDED FOR SHORTNESS OF BREATH, Disp: 9 g, Rfl: 0 atorvastatin (Lipitor) 20 MG tablet, Take 1 tablet (20 mg) by mouth Daily, Disp: 90 tablet, Rfl: 0 losartan (Cozaar) 50 MG tablet, Take 1 tablet (50 mg) by mouth Daily, Disp: 90 tablet, Rfl: 0 mirtazapine (Remeron) 7.5 MG tablet, Take 1 tablet (7.5 mg) by mouth at bedtime, Disp: 30 tablet, Rfl: 2 risperiDONE (RisperDAL) 0.5 MG tablet, TAKE 1 TABLET BY MOUTH TWICE DAILY (IN THE MORNING AND BEFORE BEDTIME), Disp: 60 tablet, Rfl: 0 Social History: Social History Socioeconomic History Marital status: Spouse name: Not on file Number of children: Not on file Years of education: Not on file Highest education level: Not on file Occupational History Not on file Tobacco Use Smoking status: Never Passive exposure: Never Smokeless tobacco: Never Vaping Use Vaping status: Never Used Substance and Sexual Activity Alcohol use: Never Drug use: Never Sexual activity: Defer Other Topics Concern Not on file Social History Narrative Not on file Social Drivers of Health Financial Resource Strain: Low Risk (08/12/2023) Overall Financial Resource Strain (CARDIA) Difficulty of Paying Living Expenses: Not very hard Food Insecurity: No Food Insecurity (08/12/2023) Hunger Vital Sign Worried About Running Out of Food in the Last Year: Never true Ran Out of Food in the Last Year: Never true Transportation Needs: Unmet Transportation Needs (08/12/2023) PRAPARE - Transportation Lack of Transportation (Medical): Yes Lack of Transportation (Non-Medical): No Physical Activity: Inactive (08/12/2023) Exercise Vital Sign Days of Exercise per Week: 0 days Minutes of Exercise per Session: 0 min Stress: Stress Concern Present (08/12/2023) [employer] - Occupational Stress Questionnaire Feeling of Stress : Very much Social Connections: Moderately Integrated (08/12/2023) Social Connection and Isolation Panel [NHANES] Frequency of Communication with Friends and Family: More than three times a week Frequency of Social Gatherings with Friends and Family: More than three times a week Attends Rastafari Services: 1 to 4 times per year Active Member of Clubs or Organizations: No Attends Club or Organization Meetings: Never Marital Status: Intimate Partner Violence: Not At Risk (08/12/2023) Humiliation, Afraid, Rape, and Kick questionnaire Fear of Current or Ex-Partner: No Emotionally Abused: No Physically Abused: No Sexually Abused: No Housing Stability: Unknown (08/12/2023) Housing Stability Vital Sign Unable to Pay for Housing in the Last Year: No Number of Places Lived in the Last Year: Not on file Unstable Housing in the Last Year: No ROS: Gastrointestinal: denies abdominal pain, ulcers, or changes in appetite or bowel habits Musculoskeletal: Positive generalized arthritis to joints and denies loss of strength. Positive history of knee replacement Cardiovascular: denies CP, palpitations, irregular rhythms OBJECTIVE LE EXAM: DERM: Elongated thick yellow crumbly nails digits 1 through 10. Positive hair growth b/l feet. +1 pitting edema to bilateral ankles VASC: Positive palpable pedal pulses bilaterally NEURO: Gross sensation intact to bilateral feet ORTHO: Positive pain on palpation to toenails of the left 1,2,3,4,5 toes and right 1,2,3,4,5 toes ASSESSMENT 1. Venous insufficiency 2. Pain due to onychomycosis of toenails of both feet PLAN Discussed proper foot care with patient today. Debride nails in length and thickness digits 1 through 10 Visit spent with patient education on condition and treatment of condition. Pt to continue with elevation of feet while resting or NWB. Discussed compression hose and the use of stockings for edema. Discussed condition in detail. Recommendation for [id number] compression stockings at this time and may consider prescription stockings in the future. Dave Ambrocio DPM documented in this encounter [facility] 10-12-2024 History of Presen t illness Narrative [...] breath/chest pain/ear pain/dizziness/N/V/D. documented in this encounter [facility] 10-12-2024 Instructions Dominique Urbano NP - 10/12/2024 10:00 AM EST [...] NEAREST EMERGENCY DEPARTMENT. documented in this encounter [facility] 11-10-2021 Note PROCEDURE: InvenQuery Signa HDXT 1.5 Sagittal T1, T2, STIR [...] signed by Michael Cristina on 11/10/2021 1522 [facility] Evaluation [facility] Work [facility]: Evaluation note Diagnosis Primary hypertension (CMS/HCC) Unspecified essential hypertension documented in this encounter [facility] HealthcareEvaluation note* Diagnosis Mild intermittent asthma with status asthmaticus [...] (CMS/HCC)- Primary [facility] Diagnosis Mild intermittent asthma with status asthmaticus [...] essential hypertension [facility] Diagnosis Mild intermittent asthma with status asthmaticus [...] hyperlipidemia Primary hypertension (CMS/HCC) Unspecified essential hypertension 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) [facility] Diagnosis Mild intermittent asthma with status asthmaticus [...] hyperlipidemia Primary hypertension (CMS/HCC) Unspecified essential hypertension Primary hypertension (CMS/HCC)- Primary Unspecified essential hypertension 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) Dyslipidemia (CMS/HCC) Other and unspecified hyperlipidemia Recurrent major depressive disorder, in partial remission (HCC) ([facility]CC) Screening mammogram, encounter for Venous insufficiency- Primary Unspecified venous (peripheral) insufficiency Pain due to onychomycosis of toenails of both feet [facility] Diagnosis Mild intermittent asthma with status asthmaticus [...] hyperlipidemia Primary hypertension (CMS/HCC) Unspecified essential hypertension Primary hypertension (CMS/HCC)- Primary Unspecified essential hypertension 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) Dyslipidemia (CMS/HCC) Other and unspecified hyperlipidemia Recurrent major depressive disorder, in partial remission (HCC) ([facility]/HCC) Screening mammogram, encounter for Primary hypertension (CMS/HCC) Unspecified essential hypertension Dyslipidemia (CMS/HCC) Other and unspecified hyperlipidemia 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) Mild intermittent asthma with status asthmaticus (CMS/HCC) [facility] Diagnosis Mild intermittent asthma with status asthmaticus [...] hyperlipidemia Primary hypertension (CMS/HCC) Unspecified essential hypertension Primary hypertension (CMS/HCC)- Primary Unspecified essential hypertension 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) Dyslipidemia (CMS/HCC) Other and unspecified hyperlipidemia Recurrent major depressive disorder, in partial remission (HCC) (CMS/HCC) Screening mammogram, encounter for Mild intermittent asthma with status asthmaticus (CMS/HCC) [facility] Diagnosis Mild intermittent asthma with status asthmaticus [...] hyperlipidemia Primary hypertension (CMS/HCC) Unspecified essential hypertension Primary hypertension (CMS/HCC)- Primary Unspecified essential hypertension 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) Dyslipidemia (CMS/HCC) Other and unspecified hyperlipidemia Recurrent major depressive disorder, in partial remission (HCC) ([facility]/HCC) Screening mammogram, encounter for Encounter for subsequent annual wellness visit (AWV) in Medicare patient- Primary 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) Primary hypertension (CMS/HCC) Unspecified essential hypertension B12 deficiency Hypothyroidism, unspecified type (CMS/HCC) Mixed hyperlipidemia (CMS/HCC) Mixed hyperlipidemia Screening mammogram, encounter for Colon cancer screening declined Dyslipidemia ([facility]) Other and unspecified hyperlipidemia documented [facility] Diagnosis Mild intermittent asthma with status asthmaticus (CMS/HCC)- Primary Primary hypertension (CMS/HCC) Unspecified essential hypertension MCI (mild cognitive impairment) with memory loss Mild cognitive impairment, so stated Screening mammogram, encounter for Hyperlipidemia, unspecified hyperlipidemia type ([facility]/HCC)- Primary Primary hypertension (CMS/HCC) Unspecified essential hypertension [...] hyperlipidemia Primary hypertension (CMS/HCC) Unspecified essential hypertension Primary hypertension (CMS/HCC)- Primary Unspecified essential hypertension 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) Dyslipidemia (CMS/HCC) Other and unspecified hyperlipidemia Recurrent major depressive disorder, in partial remission (HCC) ([facility]) Screening mammogram, encounter for Encounter for subsequent annual wellness visit (AWV) in Medicare patient- Primary 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) Primary hypertension (CMS/HCC) Unspecified essential hypertension B12 deficiency Hypothyroidism, unspecified type (CMS/HCC) Mixed hyperlipidemia (CMS/HCC) Mixed hyperlipidemia Screening mammogram, encounter for Colon cancer screening declined Dyslipidemia (CMS/HCC) Other and unspecified hyperlipidemia Mild intermittent asthma with status asthmaticus (CMS/HCC) documented in this encounter [facility] Summary [...] section and content) DATE CREATED AUTHOR 11/11/2021 [facility] dical Specialist DATE CREATED AUTHOR AUTHOR'S ORGANIZ ATION 12/21/2022 [facility] DATE CREATED AUTHOR AUTHOR'S ORGANIZ ATION 09/08/2023 [facility] DATE CREATED AUTHOR AUTHOR'S ORGANIZ ATION 10/20/2023 [facility] DATE CREATED AUTHOR AUTHOR'S ORGANIZ ATION 08/11/2024 [facility] DATE CREATED AUTHOR AUTHOR'S ORGANIZ ATION 01/02/2025 [facility] dical Specialists EPIC Care Teams (unrecognized sec tion and content) Team Status: Active Member Role Status Dates Shaikh Natalia MD Primary Care Provider Active Team Status: Inactive Member Role Status Dates Shaikh Natalia MD Primary Care Provider Active Jorge Ladd DO Attending Provider Active Robotics Systems Engineer Relationship Specialty Start Date End Date Shaikh Fisher MD [address] [place] [address] PCP - Devoted 09/16/23 Navneet Vanegas MD [address] [place] [address] PCP - General Family Medicine 05/26/24 Dominique Urbano NP [address] [place] [address] Nurse Practitioner Family Medicine 05/26/24 Robotics Systems Engineer Relationship Specialty Start Date End Date Shaikh Fisher MD [address] [place] [phone] PCP - Devoted 09/16/23 Navneet Vanegas MD [address] [place] [address] PCP - General Family Medicine 05/26/24 Dominique Urbano NP [address] [place] [address] Nurse Practitioner Family Medicine 05/26/24 Robotics Systems Engineer Relationship Specialty Start Date End Date Shaikh Fisher MD [address] [place] [address] PCP - Devoted 09/16/23 Qi Andrade MD [address] [place] [address] PCP - General Family Medicine 10/06/24 Dominique Urbano NP [address] [place] [address] Nurse Practitioner Family Medicine 05/26/24 Robotics Systems Engineer Relationship Specialty Start Date End Date Shaikh Fisher MD [address] [place] [address] PCP - Devoted 09/16/23 Qi Andrade MD [address] [facility] [place] [address] PCP - General Family Medicine 10/06/24 Dominique Urbano NP [address] [place] [address] Nurse Practitioner Family Medicine 05/26/24 Robotics Systems Engineer Relationship Specialty Start Date End Date Shaikh Fisher MD [address] [place] [phone] PCP - Devoted 09/16/23 Qi Andrade MD [address] [place] [address] PCP - General Family Medicine 10/06/24 Dominique Urbano, AJIT [address] [place] [address] Nurse Practitioner Family Medicine 05/26/24 Robotics Systems Engineer Relationship Specialty Start Date End Date Shaikh Fisher MD [address] [place] [phone] PCP - Devoted 09/16/23 iQ Andrade MD [address] [facility] [place] [address] PCP - General Family Medicine 10/06/24 Dominique Urbano NP [address] [place] [address] Nurse Practitioner Family Medicine 05/26/24 Robotics Systems Engineer Relationship Specialty Start Date End Date Shaikh Fisher MD [address] [place] [address] PCP - Devoted 09/16/23 Qi Andrade MD [address] [place] [address] PCP - General Family Medicine 10/06/24 Dominique Urbano NP [address] [place] [address] Nurse Practitioner Family Medicine 05/26/24 Robotics Systems Engineer Relationship Specialty Start Date End Date Shaikh Fisher MD [address] [place] [address] PCP - Devoted 09/16/23 Qi Andrade MD [address] [place] [address] PCP - General Family Medicine 10/06/24 Dominique Urbano NP [address] [place] [address] Nurse Practitioner Family Medicine 05/26/24 Robotics Systems Engineer Relationship Specialty Start Date End Date Shaikh Fisher MD [address] [place] [phone] PCP - Devoted 09/16/23 Qi Andrade MD [address] [place] [address] PCP - General Family Medicine 10/06/24 Dominique Urbano NP [address] [place] [address] Nurse Practitioner Family Medicine 05/26/24 Robotics Systems Engineer Relationship Specialty Start Date End Date Shaikh Fisher MD [address] [place] [phone] PCP - Devoted 09/16/23 Navneet Vanegas MD [address] [place] [address] PCP - General Family Medicine 02/23/25 Dominique Urbano NP [address] [place] [address] Nurse Practitioner Family Medicine 05/26/24 Evelyn Tariq NP [address] [place] [address] Nurse Practitioner Family Medicine 02/23/25 Robotics Systems Engineer Relationship Specialty Start Date End Date Shaikh Fisher MD [address] [place] [address] PCP - Devoted 09/16/23 Navneet Vanegas MD [address] [place] [address] PCP - General Family Medicine 02/23/25 Dominique Urbano NP [address] [place] [address] Nurse Practitioner Family Medicine 05/26/24 Evelyn Tariq NP [address] [place] [address] Nurse Practitioner Family Medicine 02/23/25 Goals (unrecognized section and content) Goals may be documented in a n alternate section Reason for Visit (unrecogniz ed section and content) Reason Onset Date Comments Med Refill 06/15/2024 Reason Comments Hospital Follow-up Reason Comments Med Refill Reason Comments Toenail Care Reason Onset Date Comments Med Refill 01/04/2025 FOR RECORDS PERTAINING TO PATIENTS WHO ARE [...] BE BASED ON THE PRIMARY CLINICAL RECORDS. [employer] provides no warranty or guarantee of the accuracy or completeness of information in this document.
[2025-02-25 09:49] LABS: Bilirubin Urine NEGATIVE (NEGATIVE); Blood Urine TRACE-I (NEGATIVE); Clarity Urine CLEAR (CLEAR); Color Urine LT. YELLOW (YELLOW); Glucose Urine UA NEGATIVE (NEGATIVE); Ketones Urine NEGATIVE (NEGATIVE); Leukocyte Esterase Urine SMALL (NEGATIVE); Nitrite Urine NEGATIVE (NEGATIVE); Protein Urine NEGATIVE (NEG/TRACE); Specific Gravity Urine <=1.005 (1.005-1.025); Urobilinogen Urine 0.2 EU/dL (0.2-1.0)
[2025-02-25 09:50] LABS: Basophils Percent Auto 0.4 % (0.2-2.0); Eosinophils Percent Auto 0.8 % (0.9-7.0); Hemoglobin 11.6 g/dL (12.0-16.0); Immature Granulocytes Abs Auto 0.02 10^3/uL (0.00-0.03); Immature Granulocytes Pct Auto 0.4 % (0.0-0.5); Lymphocytes Absolute Auto 0.9 10^3/uL (1.2-3.8); Lymphocytes Percent Auto 17.9 % (20.5-60.0); Mean Corpuscular HGB Conc 33.1 g/dL (29.9-35.2); Mean Corpuscular Volume 96.4 fL (81.0-99.0); Mean Platelet Volume 9.3 fL (9.5-13.5); Monocytes Absolute Auto 0.7 10^3/uL (0.3-0.8); Monocytes Percent Auto 14.6 % (1.7-12.0); Neutrophils Absolute Auto 3.2 10^3/uL (1.4-6.5); Neutrophils Percent Auto 65.9 % (43.0-75.0); Platelet Count 217 10^3/uL (150-450); Red Blood Count 3.63 10^6/uL (4.20-5.40); Red Cell Distribution Width 13.7 % (11.0-15.0); White Blood Count 4.9 10^3/uL (4.0-11.0)
[2025-02-25 09:51] LABS: Urine Microscopic Indicated YES
[2025-02-25 10:04] LABS: Bacteria Urine TRACE #/HPF (NONE SEEN); Cast Seen? NONE SEEN #/LPF (NONE SEEN); Crystals Seen? None Seen #/HPF (None Seen); Mucus Urine NONE SEEN (NONE SEEN); RBC Urine 0-2 #/HPF (0-2); Squamous Epithelial Cell Urine FEW #/LPF (NONE/RARE); Transitional Epi Cells Urine RARE #/LPF (NONE SEEN)
[2025-02-25 10:59] LABS: Anion Gap 8.7; Carbon Dioxide 31.3 mmol/L (21.0-32.0); Chloride 105 mmol/L (98-107); Glucose 96 mg/dL (74-106); Sodium 141 mmol/L (136-145)
[2025-02-25 11:00] LABS: Alanine Aminotransferase 12 U/L (14-59); Albumin Globulin Ratio 0.8; Albumin Level 3.3 g/dL (3.4-5.0); Alkaline Phosphatase 97 U/L (46-116); Aspartate Amino Transferase 13 U/L (15-37); Bilirubin Total 1.5 mg/dL (0.2-1.0); Calcium 9.5 mg/dL (8.5-10.1); Cholesterol 249 mg/dL (<=200); Estimated GFR (African America >60 (>=60 mL/min/1.73m^2); Estimated GFR (Non-African Ame 54 (>=60 mL/min/1.73m^2); Globulin 3.9 g/dL; HDL Cholesterol 80 mg/dL (40-60); Total Protein 7.2 g/dL (6.4-8.2); Triglycerides 66 mg/dL (<=150); VLDL CHOLESTEROL 13.2 mg/dL
[2025-02-25 11:01] LABS: Chol HDL Ratio 3.1; Thyroid Stimulating Hormone 1.554 uIU/mL (0.358-3.740)
[2025-02-25 11:18] LABS: Free T4 0.99 ng/dL (0.76-1.46)
[2025-02-25 14:53] LABS: Creatinine Urine Random 73.15 mg/dL (20.00-300.00); Microalbumin Urine Random <1.3 mg/dL (<=30.0)
[2025-02-26 04:07] LABS: Vitamin B12 328 pg/mL (232-1245)
== END 2025-02-25 09:03 | disposition home or self-care (01) ==
LOC: LAB 09:04
PROVIDERS: PCP Nurse Practitioner; Visit Provider Nurse Practitioner
DX: E03.9 Hypothyroidism, unspecified (principal); G30.0 Alzheimer's disease with early onset; F02.818 Dementia in other diseases classified elsewhere, unspecified severity, with other behavioral disturbance; E53.8 Deficiency of other specified B group vitamins; I10 Essential (primary) hypertension; E78.2 Mixed hyperlipidemia
CPT/HCPCS: 36415; 80053; 80061; 81001; 82043; 82570; 82607; 84439; 84443; 85025

== ENCOUNTER 2025-03-09 11:03 | Outpatient (OUT) | payer OTHER, SELFPAY ==
--- OUTSIDE RECORDS SUMMARY | 2014-04-14 14:56 | XMS_ITS | Encounter Summary ---
Author Organization Lan Peña [facility] Address [address] [place] [address] Care Team Providers Care Senior Adults Director Name Role Phone Michelle Selvin Primary Care Provider Unavailabl e Encounter Details Date Type Department Care Team (Late st Contact Info) Description 04/14/2014 2:56 PM EDT Hospital Encounter STV Pre-Admit Testing [address] [place] [address] Conrado Huggins Jp, MD [address] [facility], [address] [place] [address] Social History Tobacco Use Types Packs/Day Years Used Date Smoking Tobacco: Never Smokeless Tobacco: Never Alcohol Use Standard Drinks/Week Comments No 0 (1 standard drink = 0.6 oz pur e alcohol) Comments No Sex and Gender Information Value Date Recorded Sex Assigned at Not on file Legal Sex Female 7:11 PM EST Gender Identity Not on file Sexual Orientation Not on file documented as of this encounter Last Filed Vital Signs Vital Sign Reading Time Taken Comments Blood Pressure 130/78 04/14/2014 4:07 PM EDT Pulse 68 04/14/2014 4:07 PM EDT Temperature 36.7 C (98.1 F) 04/14/2014 4:07 PM EDT Respiratory Rate 18 04/14/2014 4:07 PM EDT Oxygen Saturation 99% 04/14/2014 4:07 PM EDT Inhaled Oxygen Concentration - - Weight 84.4 kg (186 lb) 04/14/2014 4:07 PM EDT Height 149.9 cm (4' 11 ) 04/14/2014 4:07 PM EDT Body Mass Index 37.57 04/14/2014 4:07 PM EDT documented in this encounter Progress Notes * Mahin Sewell PA - 04/14/2014 3:43 PM EDT Anesthesia Focused Assessment Obstructive Sleep Apnea: no If YES, machine used: no Type 1 DM: no T2DM: no Coronary Artery Disease: no Hypertension: yes Active smoker: no Drinks Alcohol: no Dentition: benign Defib / AICD / Pacemaker: no Renal Failure/dialysis: no Patient was evaluated in PAT & anesthesia guidelines were applied. NPO guidelines, medication instructions and scheduled arrival time were reviewed with patient. Hx of anesthesia complications: no Family hx of anesthesia complications: no Anesthesia contacted: no Medical or cardiac clearance ordered: no MAHIN SEWELL PA-C 04/14/2014 3:43 PM documented in this encounter Plan of Treatment Not on file documented as of this encounter Procedures Procedure Name Priority Date/Time Associated Diagnosis Comments URINE CULTURE CLEAN CATCH Routine 04/14/2014 7:23 PM EDT MICROSCOPIC URINALYSIS Routine 04/14/2014 5:36 PM EDT UA W/REFLEX CULTURE Routine 04/14/2014 5 :36 PM EDT EKG 12-LEAD Routine 04/14/2014 4:12 PM EDT BUN & CREATININE Routine 04/14/2014 3:45 PM EDT APTT Routine 04/14/2014 3:45 PM EDT PROTIME-INR Routine 04/14/2014 3:45 PM EDT CBC Routine 04/14/2014 3:45 PM EDT TYPE AND SCREEN Routine 04/14/2014 3:45 PM EDT GLUCOSE, RANDOM Routine 04/14/2014 3:45 PM EDT ELECTROLYTE PANEL Routine 04/14/2014 3:4 5 PM EDT ABO/RH/NC Routine 04/14/2014 2:55 PM EDT documented in this encounter Results * (ABNORMAL) Urine culture clean catch (04/14/2014 7:23 PM EDT) Pathologist [facility] Specimen CLEAN CATCH URINE 04/14/2014 7:23 PM EDT [facility] Special Requests NOT REPORTED 04/14/2014 7:23 PM EDT [facility] Culture STREPTOCOCCI, BETA HEMOLYTIC GROUP B 50 to 100,000 CFU/ML(A) 04/15/2014 5:35 PM EDT [facility] Culture [address] [address] ([phone] 04/15/2014 5:35 PM EDT [facility] Status FINAL 04/15/2014 04/15/20 14 5:35 PM EDT [facility] 04/14/2014 7:23 PM EDT 04/14/2014 7:23 PM EDT us Conrado Huggins MD MICROBIOLOGY - GENERAL ORDERABLE S Final Result [facility] [employer] [address] [place], [place] [id number], [facility] [phone] [facility] * (ABNORMAL) Microscopic Urinalysis (04/14/2014 5:36 PM EDT) - 04/14/2014 6:40 PM EDT [facility] WBC, UA 10 TO 20 0 - 5 /HPF 04/14/2014 6:40 PM EDT [facility] RBC, UA 0 TO 2 0 - 2 /HPF 04/14/2014 6:40 PM EDT [facility] Casts UA NOT REPORTED 0 - 2 /LPF [facility] Crystals, UA NOT REPORTED NONE /HPF [facility] Epithelial Cells, UA MODERATE /HPF 04/14/2014 6:40 PM EDT [facility] Renal Epithelial, UA NOT REPORTED 0 /HPF [facility] Bacteria, UA FEW(A) NONE 04/14/2014 6:40 PM EDT [facility] Mucus, UA NOT REPORTED NONE [employer] Trichomonas NOT REPORTED NONE [employer] Amorphous, UA 2+(A) NONE 04/14/2014 6:40 PM EDT [facility] Comment:[employer] [address] [place] [address] ([phone] Other Observations UA NOT REPORTED NREQ [facility] Yeast, UA NOT REPORTED NONE [employer] 04/14/2014 5:36 PM EDT 04/14/2014 5:36 PM EDT us Conrado Huggins MD URINE ORDERABLES Final Result [employer] [address] [id number], [facility] [phone] [facility] * (ABNORMAL) UA W/REFLEX CULTURE (04/14/2014 5:36 PM EDT) Color, UA YELLOW YEL 04/14/2014 6:15 PM EDT [facility] Turbidity UA CLOUDY(A) CLEAR 04/14/2014 6:15 PM EDT [facility] Glucose, Ur NEGATIVE NEG 04/14/2014 6:15 PM EDT [facility] Bilirubin Urine NEGATIVE NEG 4 6:15 PM EDT [facility] Ketones, Urine NEGATIVE NEG 04/14/2014 6:15 PM EDT [facility] Specific Humble, UA 1.027 1.005 - 1.030 04/14/2014 6:15 PM EDT [facility] Urine Hgb NEGATIVE NEG 04/14/2014 6:15 PM EDT [facility] pH, UA 6.5 5.0 - 8.0 04/14/2014 6:15 PM EDT [facility] Protein, UA NEGATIVE NEG 04/14/2014 6:15 PM EDT [facility] Urobilinogen, Urine Normal NORM 04/14/2014 6:15 PM EDT [facility] Nitrite, Urine NEGATIVE NEG 04/14/2014 6:15 PM EDT [facility] Leukocyte Esterase, Urine MOD(A) NEG 04/14/2014 6:15 PM EDT [facility] Urinalysis Comments Culture ordered based on defined criteria. 04/14/2014 6:40 PM EDT [facility] Comment:[employer] [address] [place] [address] 04/14/2014 5:36 PM EDT 04/14/2014 5:36 PM EDT Conrado Huggins MD URINE ORDERABLES Edited Result - Final Performing Organization Address City/[facility]/ZIP Co de Phone Number [employer] [address] [place] [address], [facility] [phone] [facility] * EKG 12 Lead (04/14/2014 4:12 PM EDT) Ventricular Rate 56 BPM [facility] Atrial Rate 56 BPM [facility] P-R Interval 154 ms [facility] QRS Duration 86 ms [facility] Q-T Interval 438 ms PN ST[facility] MUSE QTc Calculation (Bazett) 423 ms [facility] P Purdin 17 degrees [facility] R Purdin 33 degrees [facility] T Purdin 13 degrees [facility] MUSE 04/14/2014 4:12 PM EDT Narrative [facility] MUSE - 04/15/2014 10:52 AM EDT Sinus bradycardiaOtherwise normal ECGWhen compared with ECG of 09-DEC-2001 13:12,Vent. rate has decreased BY 27 BPM Procedure Note Result, Unknown Provider - 04/15/2014 Sinus bradycardiaOtherwise normal ECGWhen compared with ECG of [id number],Vent. rate has decreased BY 27 BPM us Conrado Huggins MD ECG ORDERABLES Final Result [facility] ST[facility] MUSE * TYPE AND SCREEN (04/14/2014 3:45 PM EDT) Expiration Date 05/17/2014 4 6:28 AM EDT [facility] Arm Band Number [id number] 5:00 PM EDT [facility] ABO/Rh A POSITIVE 04/14/2014 5:00 PM EDT [facility] Antibody Screen NEGATIVE 5:12 PM EDT [facility] Comment: Performed at [facility] [address] [place] [address] BLOOD SPECIMEN / Unknown 04/14/2014 3:45 PM EDT 04/14/2014 5:00 PM EDT us Conrado Huggins MD BLOOD BANK TEST ORDERABLES Edite d Result - Final [address] [address], [facility] [phone] [facility] * BUN & Creatinine (04/14/2014 3:45 PM EDT) BUN 15 8 - 23 mg/dL 04/14/2014 4:33 PM EDT [facility] Creatinine 0.52 0.50 - 0.90 mg/dL 04/14/2014 4:33 PM EDT [facility] GFR Non- >60 >60 mL/min 04/14/2014 4:33 PM EDT [facility] GFR >60 >60 mL/min 04/14/2014 4:33 PM EDT [facility] GFR Comment 04/14/2014 4:33 PM EDT [facility] Comment: Average GFR for 60-69 years old: 85 mL/min/1.73sq m Chronic Kidney Disease: <60 mL/min/1.73sq m Kidney failure: <15 mL/min/1.73sq m GFR is a calculated value that has proven clinically to be a more effective measure of kidney function when reported with serum creatinine. [facility] [employer] [address] [place] [phone] GFR Staging NOT REPORTED [facility] 04/14/2014 3:45 PM EDT 04/14/2014 4:01 PM EDT us Conrado Huggins MD CHEMISTRY ORDERABLES Final Resul t Performing Organization Address City/[facility]/ZIP Co de Phone Number [facility] [employer] [address] [place] [id number] [phone] [facility] * Protime-INR (04/14/2014 3:45 PM EDT) Protime 9.8 9.4 - 12.6 sec 04/14/2014 4:19 PM EDT [facility] INR 0.9 04/14/2014 4:19 PM EDT [facility] Comment: Therapeutic Range: Moderate Anticoagulant Intensity: INR = 2.0-3.0 High Anticoagulant Intensity: INR = 2.5-3.[address] [address] BLOOD SPECIMEN / Unknown 04/14/2014 3:45 PM EDT 04/14/2014 4:01 PM EDT us Conrado Huggins MD HEMATOLOGY ORDERABLES Final Resu lt Performing Organization Address City/[facility]/ZIP Co de Phone Number [address] [phone] [facility] * APTT (04/14/2014 3:45 PM EDT) Pathologist [facility] APTT 24.7 21.3 - 31.3 sec 04/14/2014 4:19 PM EDT [facility] Comment:[employer] [address] [place], [place] [id number] ([phone] BLOOD SPECIMEN / Unknown 04/14/2014 3:45 PM EDT 04/14/2014 4:01 PM EDT us Conrado Huggins MD HEMATOLOGY ORDERABLES Final Resu lt [address] [phone] [facility] * Glucose, random (04/14/2014 3:45 PM EDT) Pathologist [facility] Glucose 87 70 - 99 mg/dL 04/14/2014 4:33 PM EDT [facility] Comment:[employer] [address] [place], [place] [id number] ([phone] 04/14/2014 3:45 PM EDT 04/14/2014 4:01 PM EDT us Conrado Huggins MD CHEMISTRY ORDERABLES Final Resul t Performing Organization Address [facility] de Phone Number [employer] [address] [place] [address], [facility] [phone] [facility] * Electrolyte Panel (04/14/2014 3:45 PM EDT) Sodium 140 133 - 142 mmol/L 04/14/2014 4:33 PM EDT [facility] Potassium 4.0 3.5 - 5.1 mmol/L 04/14/2014 4:33 PM EDT [facility] Chloride 103 98 - 107 mmol/L 04/14/2014 4:33 PM EDT [facility] CO2 29 20 - 31 mmol/L 04/14/2014 4:33 PM EDT [facility] Anion Gap 12 8 - 16 mmol/L 04/14/2014 4:33 PM EDT [facility] Comment:[employer] [address] [place] [address] 04/14/2014 3:45 PM EDT 04/14/2014 4:01 PM EDT us Conrado Huggins MD CHEMISTRY ORDERABLES Final Resul t Performing Organization Address [facility] de Phone Number [facility] [employer] [address] [place] [address], [facility] [phone] [facility] * (ABNORMAL) CBC (04/14/2014 3:45 PM EDT) WBC 7.0 3.5 - 11.0 k/uL 04/14/2014 4:05 PM EDT [facility] RBC 3.82(L) 4.0 - 5.2 m/uL 04/14/2014 4:05 PM EDT [facility] Hemoglobin 12.1 12.0 - 16.0 g/dL 04/14/2014 4:05 PM EDT [facility] Hematocrit 35.3(L) 36 - 46 % 04/14/2014 4:05 PM EDT [facility] MCV 92.3 80 - 100 fL 04/14/2014 4:05 PM EDT [facility] MCH 31.8 26 - 34 pg 04/14/2014 4:05 PM EDT [facility] MCHC 34.4 31 - 37 g/dL 04/14/2014 4:05 PM EDT [facility] RDW 14.1 12.5 - 15.4 % 04/14/2014 4:05 PM EDT [facility] Platelets 234 140 - 450 k/uL 04/14/2014 4:05 PM EDT [facility] MPV 8.8 6.0 - 12.0 fL 04/14/2014 4:05 PM EDT [facility] Comment:[facility] [address] [place] [address] ([phone] 04/14/2014 3:45 PM EDT 04/14/2014 4:01 PM EDT us Conrado Huggins MD HEMATOLOGY ORDERABLES Final Resu lt [address] [phone] [facility] * ABO/RH/NC (04/14/2014 2:55 PM EDT) ABO/Rh A POSITIVE 04/14/2014 8:02 PM EDT [facility] History Check A 04/14/2014 8:02 PM EDT [facility] Comment: POSITIVE Performed at [facility] [address] [place] [address] 04/14/2014 2:55 PM EDT 04/14/2014 3:40 PM EDT us Conrado Huggins MD BLOOD BANK TEST ORDERABLES Final Result Performing Organization Address City/[facility]/ZIP Co de Phone Number [address] [phone] [facility] documented in this encounter Visit Diagnoses Not on filedocumented in this encounter Care Teams Senior Adults Director Relationship Specialty Start Date End Date Selvin Martinez PCP - General 02/16/14 documented as of this encounter
--- OUTSIDE RECORDS SUMMARY | 2014-04-16 11:40 | XMS_ITS | Encounter Summary ---
Author Organization Lan Peña [facility] Address [address] [place] [address] Care Team Providers Care Drawing Instructor Name Role Phone Michelle Selvin Primary Care Provider Unavailabl e Encounter Details Date Type Department Care Team (Late st Contact Info) Description 04/16/2014 11:40 AM EDT Hospital Encounter [facility] [place] [facility] [address] [place] [address] Daniela Huggins Jp, MD [address] [facility], [address] [place] [address] Social History Tobacco Use Types Packs/Day Years [...] on file documented as of this encounter Plan of Treatment Not on file documented as of this encounter Procedures Procedure Name Priority Date/Time Associated Diagnosis Comments OPERATIVE REPORT Routine 04/29/2014 10:1 4 AM EDT documented in this encounter Results * Operative Report (04/29/2014 10:14 AM EDT) 04/29/2014 10:1 4 AM EDT Narrative [facility] OR REPORTS - 04/29/2014 10:14 AM EDT PERIOPERATIVE RECORD 6760 - SV SURGERY INTRAOPERATIVE RECORD PATIENT NAME: KEVON CAMPOS GENDER: F DATE: 1950 AGE: 64 Years ANTICIPATED START: 04/16/2014 11:30 PATIENT INFORMATION PATIENT IDENTIFICATION: RAJESH BIRTHDAY CASE GENERAL INFORMATION ACTUAL OR: [facility] OR ROOM 18 PROCEDURE CONSENT ON CHART: Yes HISTORY / PHYSICAL ON CHART: Yes UNPLANNED RETURN TO SURGERY WITHIN 24 HOURS?: No SITE MARKED / PROCEDURE AGREES WITH: SURGERY SCHEDULE: Yes SURGERY CONSENT: Yes HISTORY PHYSICAL: Yes PER DOCTOR'S ORDER: Yes PREOP ANTIBIOTIC CASE SERVICE: NEUROSURGERY CASE TYPE: SCHEDULED PATIENT TYPE: MED/SURG PREOP DIAGNOSIS: LUMBAR INSTABILITY, STENOSIS CASE CANCEL REASON: OTHER/UNKNOWN PATIENT ASSESSMENT DOCUMENTED BLEEDING RISK: No INFECTION PRIOR TO ANESTHESIA: No CASE ANESTHESIA INFORMATION ANESTHESIA TYPE: GENERAL ANESTHESIA IV ASSESSMENT TIMES SCHED CASE START: 04/16/2014 11:40 SCHED CASE STOP: 04/16/2014 14:10 SURGICAL SAFETY CHECKLIST BEFORE INDUCTION OF ANESTHESIA PATIENT HAS CONFIRMED IDENTITY, SITE, PROCEDURE, CONSENT AND SITE MARKED IF APPLICABLE: Yes BEFORE SKIN INCISION BEFORE PATIENT LEAVES OPERATING ROOM NURSE VERBALLY CONFIRMED WITH THE TEAM: PROCEDURE GENERAL INFORMATION ACTUAL PROCEDURE: EXTREME LATERAL LUMBAR INTERBODY FUSION L3-4, L4-5, XLIF, MEP PRIMARY SURGEON: DANIELA HUGGINS MD PROCEDURE SERVICE: NEUROSURGERY PROCEDURE COUNTS COUNT TYPE: INITAL [ ] SPONGES [ ] SHARPS [ ] INSTRUMENTS COUNT TYPE: ENDING Page 1 of 2 on 04/29/2014 10:16 PATIENT NAME: KEVON CAMPOS GENDER: Ingrid DATE: 1950 AGE: 64 Years ANTICIPATED START: 04/16/2014 11:30 [ ] SPONGES [ ] SHARPS [ ] INSTRUMENTS [ ] X-RAY TAKEN [X] PHYSICIAN NOTIFIED PROCEDURE EQUIPMENT DESCRIPTION:GENERATOR ESU DESCRIPTION:UNIT FORCED AIR WARMER (MARGARITA HUGGER) DESCRIPTION:GENERATOR MALIS BIPOLAR Page 2 of 2 on 04/29/2014 10:16 us Unknown Provider Result GENERAL SURGICAL ORDERAB LES Final Result [facility] OR REPORTS documented in this encounter Visit Diagnoses Not on filedocumented in this encounter Care Teams Drawing Instructor Relationship Specialty Start Date End Date Selvin Martinez PCP - General 02/16/14 documented as of this encounter
--- OUTSIDE RECORDS SUMMARY | 2025-02-24 10:00 | XMS_ITS | Encounter Summary ---
Author Organization [facility] Address [address] [place] [address] Care Team Providers Care Search Engine Marketing Strategist Name Role Phone Shaikh ELVIRA Fisher Unavailable [phone] Duyen Urbano NP Unavailable Navneet Vanegas MD Primary Care Provider [phone] Evelyn Tariq NP Unavailable [phone] Encounter Details Date Type Department Care Team (Late st Contact Info) Description 02/24/2025 10:00 AM EDT Office Visit [facility] [address] [place] [address] Evelyn Tariq [employer] [address] [place] [address] Encounter for subsequent annual wellness visit (AWV) in Medicare patient (Primary Dx); 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 (HCC); Primary hypertension ; B12 deficiency; Hypothyroidism, unspecified type ; Mixed hyperlipidemia ; Screening mammogram, encounter for; Colon cancer screening declined; Dyslipidemia Social History Tobacco Use Types Packs/Day Years Used Date Smoking Tobacco: Never Passive Smoke Exposure: Never Smokeless Tobacco: Never Alcohol Use Standard Drinks/Week Comments Never 0 (1 standard drink = 0.6 oz pur e alcohol) Humiliation, Afraid, Rape, and Kick questionnair e Answer Date Recorded Within the last year, have y ou been afraid of your partner or ex-partner? No 08/12/2023 Within the last year, have y ou been humiliated or emotionally abused in other ways by your partner or ex-partner? No Within the last year, have y ou been kicked, hit, slapped, or otherwise physically hurt by your partner or ex-partner? No 08/12/2023 Within the last year, have y ou been raped or forced to have any kind of sexual activity by your partner or ex-partner? No 08/12/2023 Social Connection and Isolat ion Panel [NHANES] Answer Date Recorded In a typical week, how many times do you talk on the phone with family, friends, or neighbors? More than three times a week 08/12/2023 How often do you get togethe r with friends or relatives? More than three times a week 08/12/2023 How often do you attend [facility] or episcopal services? 1 to 4 times per year 08/12/2023 Do you belong to any clubs o r organizations such as yazdanism groups, unions, fraternal or athletic groups, or school groups? No 08/12/2023 How often do you attend meet ings of the clubs or organizations you belong to? Never 08/12/2023 Are you , , di vorced, , never , or living with a partner? 08/12/2023 AUDIT-C Answer Date Recorded Q1: How often do you have a drink containing alcohol? Never 08/12/2023 Q2: How many drinks containi ng alcohol do you have on a typical day when you are drinking? Patient does not drink Q3: How often do you have si x or more drinks on one occasion? Never 08/12/2023 Overall Financial Resource Strain (CARDIA) Answe r Date Recorded How hard is it for you to pa y for the very basics like food, housing, medical care, and heating? Not very hard 08/12/2023 PHQ-2 Answer Date Recorded Patient Health Questionnaire-2 Score 0 02/24/2025 [facility] Occupational Stress Questionnaire Answer Date Recorded Do you feel stress - tense, restless, nervous, or anxious, or unable to sleep at night because your mind is troubled all the time - these days? Very much 08/12/2023 Exercise Vital Sign Answer Date Recorde d On average, how many days pe r week do you engage in moderate to strenuous exercise (like a brisk walk)? 0 days 08/12/2023 On average, how many minutes do you engage in exercise at this level? 0 min 08/12/2023 Hunger Vital Sign Answer Date Recorded Within the past 12 months, y ou worried that your food would run out before you got the money to buy more. Never true 08/12/20 23 Within the past 12 months, t he food you bought just didn't last and you didn't have money to get more. Never true 08/12/2023 PRAPARE - Transportation Answer Date Re corded In the past 12 months, has l ack of transportation kept you from medical appointments or from getting medications? Yes 07/18 In the past 12 months, has l ack of transportation kept you from meetings, work, or from getting things needed for daily living? No 08/12/2023 Housing Stability Vital Sign Answer Gray e Recorded In the last 12 months, was t here a time when you were not able to pay the mortgage or rent on time? No 08/12/2023 Number of Places Lived in the Last Year Not on f ile 08/12/2023 In the last 12 months, was t here a time when you did not have a steady place to sleep or slept in a custodial (including now)? No 08/12/2023 Comments Unknown Sex and Gender Information Value Date Recorded Sex Assigned at Not on file Legal Sex Female 7:12 PM EDT Gender Identity Not on file Sexual Orientation Not on file documented as of this encounter Last Filed Vital Signs Vital Sign Reading Time Taken Comments Blood Pressure 138/88 02/24/2025 9:39 AM EDT Pulse 78 02/24/2025 9:39 AM EDT Temperature 37 C (98.6 F) 02/24/2025 9:39 AM EDT Respiratory Rate 18 02/24/2025 9:39 AM EDT Oxygen Saturation 97% 02/24/2025 9:39 AM EDT Inhaled Oxygen Concentration - - Weight 74.2 kg (163 lb 9.6 oz) 02/24/2025 9:39 A M EDT Height - - Body Mass Index 30.91 12/31/2024 11:53 AM EDT documented in this encounter Functional Status * Over the past 2 weeks, how often have you been bothered by any of the following problems? Question Answer Date of Assessment Author Little interest or pleasure in doing things Not at all 02/24/2025 9:45 AM SYDNEYT BOOM SANDRA Feeling down, depressed, or hopeless Not at all 02/24/2025 9:45 AM EDT KARLA SANDRA Patient Health Questionnaire -2 Score 0 02/24/2025 9:45 AM EDT KARLA SANDRA * Question Answer Date of Assessment Author Trouble falling or staying asleep, or sleeping too much Not at all 02/24/2025 9:45 AM SYDNEYT RENETTA LEWIS Feeling tired or having veena le energy Not at all 02/24/2025 9:45 AM KARLA FITZGERALD Poor appetite or overeating Not at all 02/24/2025 9: 45 AM EDRENETTA ZHAO Feeling bad about yourself - or that you are a failure or have let yourself or your family down Not at all 02/24/2025 9:45 AM EDT RENETTA LANDEROS Trouble concentrating on thi ngs, such as reading the newspaper or watching television Not at all 02/24/2025 9:45 AM KARLA FITZGERALD Moving or speaking so slowly that other people could have noticed? Or the opposite - being so fidgety or restless that you have been moving around a lot more than usual. Not at all 02/24/2025 9:45 AM SYDNEYT KARLA SANDRA Thoughts that you would be better off or hurting yourself in some way Not at all 02/24/2025 9:45 AM BOOM FITZGERALD Patient Health Questionnaire -9 Score 0 02/24/2025 9:45 AM EDKARLA ZHAO documented as of this encounter Patient Instructions * Patient Instructions* Evelyn Tariq NP - 02/24/2025 10:00 AM EDT Mammogram I will fax over to [facility]: they should call you for this [phone] Labs: fasting documented in this encounter Progress Notes * Evelyn Tariq NP - 02/24/2025 10:00 AM EDT Images from the original note were not included. Nani Campos is a 75 y.o. female presents with chief complaint of No chief complaint on file. HPI: Diet: yes Activity: walking Mental Health Concerns: no concerns, meds seem to be working Falls in the last year: no Still driving:- no Do you pay your bills:no Any hearing problems:no Any Vision problems: scheduled 03/03/25 Any Hospitalizations in the last year: yes Specialist: no neurology no psych HCPOA/Living Will: no SUBJECTIVE: MEDICATIONS: Current Outpatient Medications Medication Instructions albuterol HFA 90 mcg/act inhaler 2 puffs, Inhalation, Every 6 hours PRN atorvastatin (LIPITOR) 20 mg, Oral, Daily losartan (COZAAR) 50 mg, Oral, Daily mirtazapine (REMERON) 7.5 mg, Oral, Nightly risperiDONE (RISPERDAL) 0.5 mg, Oral, 2 times daily ALLERGIES: Allergies Allergen Reactions Morphine Itching Other Reaction(s): Hallucinations Oxycodone-Acetaminophen Itching Wound Dressing Adhesive Other Reaction(s): Other (See Comments) redness REVIEW OF SYMPTOMS: Review of Systems Constitutional: Negative for appetite change, chills and fever. HENT: Negative for congestion, ear pain and sore throat. Eyes: Negative for pain, discharge, redness and visual disturbance. Respiratory: Negative for cough, shortness of breath and wheezing. Cardiovascular: Negative for chest pain, palpitations and leg swelling. Gastrointestinal: Negative for abdominal pain, blood in stool, constipation, diarrhea, nausea and vomiting. Genitourinary: Negative for difficulty urinating, dysuria and frequency. Musculoskeletal: Negative for arthralgias, back pain, joint swelling and myalgias. Skin: Negative for rash and wound. Neurological: Negative for dizziness, tremors, seizures, syncope and headaches. Psychiatric/Behavioral: Negative for behavioral problems, self-injury and suicidal ideas. The patient is not nervous/anxious. Memory impairment Hematological: Does not bruise/bleed easily. Endocrine: Negative for polydipsia, polyphagia and polyuria. Allergic/Immunologic: Negative for environmental allergies and food allergies. PAST MEDICAL HISTORY Past Medical History: Diagnosis Date Asthma Chest pain Chronic depression ([facility]/HCC) ; Was poorly controlled and was previously started on bupropion Tolerating it without adverse effects Dyspnea Family history of heart disease Hypertension ([facility]/HCC) Hypothyroidism, adult (CMS/[facility]) was previously treated with 25 mcg of cytomel TSH at goal Low back pain Chronic low back pain. No red flags Improved with flexeril and lidocaine cream Meniere disease, left Patient presents with intermittent dizziness, vertigo and associated ringing sensation in left ear.Symptoms are intermittent, going on for years. Resolved with meclizine and vestibular rehab and nowrecurred. She could not see ENT due to [facility]. Mild cognitive impairment with memory loss Mild cognitive impairment. Chronic, gradual. Problems with recent memory. Mild intermittent asthma with status asthmaticus (CMS/HCC) patient reports using albuterol inhaler and albuterol tablet 2-3 times in a week. No hospitalization for asthma exacerbation. PFT c/w with mod obstructive disease; positive bronchodilator challenge Patient was asked to stop albuterol tablet last time; but continued to use it. Did not start her Pulmicort inhaler. Moderate persistent asthma Patient was seen last appt by Evelyn Tariq for chest pain and SOB -who ordered lab work, EKG, ECHOand Lexiscan for her - labs/results reviewed and d/w patient. I think her SOB is likely from poorlycontrolled asthma. She had PFTs performed 2 years that showed mod persistent asthma. She is not compliant with Pulmicort. She is now agreeable to use Symbicort which I will prescribe today Obesity with body mass index (BMI) of 30.0 to 39.9 SOB (shortness of breath) Past Surgical History: Procedure Laterality Date BACK SURGERY [address] RAM BREAST LUMPECTOMY multiple CARPAL TUNNEL RELEASE Bilateral [address] NOLAN / DR BARR CATARACT EXTRACTION 2019 surgery FOOT TENDON SURGERY Left (B/L GREAT TOE SX) HIATAL HERNIA REPAIR 1981 SHOULDER ARTHROSCOPY Right [address] GUEVARA SHOULDER SURGERY 1970 TONSILLECTOMY 1960 TOTAL KNEE ARTHROPLASTY Bilateral PER DR. SINGH (2000, 2002) family history includes Heart disease in her father and mother; Hypertension in her father and mother; Other in her mother; Stroke in her mother. OBJECTIVE: Visit Vitals BP 138/88 (BP Location: Left arm, Patient Position: Sitting, BP Cuff Size: Adult long) Pulse 78 Temp 98.6 ??F (Temporal) Resp 18 Wt 163 lb 9.6 oz SpO2 97% BMI 30.91 kg/m?? Smoking Status Never BSA 1.79 m?? Physical Exam Vitals and nursing note reviewed. Constitutional: General: She is not in acute distress. Appearance: Normal appearance. HENT: Head: Normocephalic and atraumatic. Right Ear: External ear normal. Left Ear: External ear normal. Nose: Nose normal. Mouth/Throat: Mouth: Mucous membranes are moist. Eyes: Extraocular Movements: Extraocular movements intact. Conjunctiva/sclera: Conjunctivae normal. Neck: Vascular: No carotid bruit. Cardiovascular: Rate and Rhythm: Normal rate and regular rhythm. Pulses: Normal pulses. Heart sounds: Normal heart sounds. Pulmonary: Effort: Pulmonary effort is normal. Breath sounds: Normal breath sounds. No wheezing or rhonchi. Abdominal: General: Bowel sounds are normal. There is no distension. Palpations: Abdomen is soft. There is no mass. Tenderness: There is no abdominal tenderness. Musculoskeletal: General: Normal range of motion. Cervical back: Normal range of motion and neck supple. Right lower leg: Edema present. Left lower leg: Edema present. Comments: Trace edema pedal Lymphadenopathy: Cervical: No cervical adenopathy. Skin: General: Skin is warm and dry. Capillary Refill: Capillary refill takes 2 to 3 seconds. Findings: No rash. Neurological: General: No focal deficit present. Mental Status: She is alert and oriented to person, place, and time. Psychiatric: Mood and Affect: Mood normal. Behavior: Behavior normal. Thought Content: Thought content normal. Judgment: Judgment normal. ASSESSMENT AND PLAN: No follow-ups on file. Problem List Items Addressed This Visit Hypertension (CMS/HCC) Please check blood pressure daily and record DASH diet Limit caffeine Take medication as directed Contact office if chest pain, pressure, dizziness, shortness of breath, swelling legs Recommend slow position changes Current meds: losartan Relevant Orders Comprehensive metabolic panel Urinalysis with reflex microscopic (clean catch) Microalbumin / creatinine, urine ratio Hypothyroid (CMS/HCC) Check labs , does not currently take any supplement Relevant Orders CBC and differential TSH T4, free B12 deficiency Check labs Relevant Orders CBC and differential Vitamin B12 Screening mammogram, encounter for Relevant Orders Bilateral screening mammogram 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) - Primary Does not follow with neurology Is taking remeron and risperidone Spouse feels things are going well Relevant Orders CBC and differential Vitamin B12 Hyperlipidemia (CMS/HCC) On statin therapy Check labs yearly and prn dose changes Relevant Orders Comprehensive metabolic panel Lipid panel Encounter for subsequent annual wellness visit (AWV) in Medicare patient Reviewed Ht/Wt/BMI Recommend eye exam yearly Recommend dental exams twice a year Balance work/leisure activities Exercises is recommended most days of the week (appropriate as chronic conditions allow) Follow up yearly and prn Colon cancer screening declined * Evelyn Tariq NP - 02/24/2025 6:32 AM EDTAssociated Problem(s): Encounter for subsequent annual wellness visit (AWV) in Medicare patient Reviewed Ht/Wt/BMI Recommend eye exam yearly Recommend dental exams twice a year Balance work/leisure activities Exercises is recommended most days of the week (appropriate as chronic conditions allow) Follow up yearly and prn * Evelyn Tariq NP - 02/24/2025 6:26 AM EDTAssociated Problem(s): Hyperlipidemia On statin therapy Check labs yearly and prn dose changes * Evelyn Tariq NP - 02/24/2025 6:25 AM EDTAssociated Problem(s): Hypothyroid Check labs , does not currently take any supplement * Evelyn Tariq NP - 02/24/2025 6:25 AM EDTAssociated Problem(s): B12 deficiency Check labs * Evelyn Tariq NP - 02/24/2025 6:24 AM EDTAssociated Problem(s): Hypertension Please check blood pressure daily and record DASH diet Limit caffeine Take medication as directed Contact office if chest pain, pressure, dizziness, shortness of breath, swelling legs Recommend slow position changes Current meds: losartan * Evelyn Tariq NP - 02/24/2025 6:24 AM EDTAssociated Problem(s): 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(HCC) Does not follow with neurology Is taking remeron and risperidone Spouse feels things are going well documented in this encounter Plan of Treatment Upcoming Encounters Date Type Department Care Team (Late st Contact Info) Description 03/11/2025 11:30 AM EDT Procedure Visit [facility] [address] [facility] [address] [place] [id number] Dave Ambrocio DPM [address] [facility] [address] [place] [address] 05/31/2025 9:40 AM EDT Office Visit [facility] [address] [place] [phone] Evelyn Tariq NP [address] [place] [id number] 03/01/2026 10:30 AM EDT Office Visit [facility] [address] [place] [id number] Evelyn Tariq, AJIT [address] [place] [address] Scheduled Orders Name Type Priority Associated Diagnoses Orde r Schedule CBC and differential Lab Routine 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 (HCC) B12 deficiency Hypothyroidism, unspecified type Expected: 02/24/2025 (Approximate), Expires: 02/24/2026 Comprehensive metabolic panel Lab Routine Primary hypertension Mixed hyperlipidemia Expected: 02/24/2025 (Approximate), Expires: 02/24/2026 Lipid panel Lab Routine Mixed hyperlipidemia Expected: 02/24/2025 (Approximate), Expires: 02/24/2026 Urinalysis with reflex microscopic (clean catch) Lab Routine Primary hypertension Expected: 02/24/2025 (Approximate), Expires: 02/24/2026 Vitamin B12 Lab Routine 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 (HCC) B12 deficiency Expected: 02/24/2025 (Approximate), Expires: 02/24/2026 TSH Lab Routine Hypothyroidism, unspecified type Expected: 02/24/2025 (Approximate), Expires: 02/24/2026 T4, free Lab Routine Hypothyroidism, unspecified type Expected: 02/24/2025 (Approximate), Expires: 02/24/2026 Microalbumin / creatinine, urine ratio Lab Routine Primary hypertension Expected: 02/24/2025 (Approximate), Expires: 02/24/2026 Bilateral screening mammogram Imaging Routine Screening mammogram, encounter for Expected: 02/24/2025 (Approximate), Expires: 04/26/2026 documented as of this encounter Visit Diagnoses Diagnosis Encounter for subsequent annual wellness visit (AWV) in Medicare patient- Primary 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 (HCC) Primary hypertension Unspecified essential hypertension B12 deficiency Hypothyroidism, unspecified type Mixed hyperlipidemia Mixed hyperlipidemia Screening mammogram, encounter for Colon cancer screening declined Dyslipidemia Other and unspecified hyperlipidemia Pain due to onychomycosis of toenails of both feet- Primary Venous insufficiency Unspecified venous (peripheral) insufficiency documented in this encounter Additional Health Concerns Assessment Noted Time PHQ-9 Depression Total Score: 0 02/25/20 25 9:45 AM EDT A fall risk assessment has been complete d for the patient 02/24/2025 9:45 AM EDT documented as of this encounter Care Teams Search Engine Marketing Strategist Relationship Specialty Start Date End Date Shaikh Fisher MD [address] [place] [phone] PCP - Devoted 09/16/23 Navneet Vanegas MD [address] [place] [phone] PCP - General Family Medicine 02/23/25 Duyen Urbano NP [address] [place] [phone] Nurse Practitioner Family Medicine 05/26/24 Evelyn Tariq NP [address] [place] [phone] Nurse Practitioner Family Medicine 02/23/25 documented as of this encounter
--- NOTE | 2025-03-09 | MM_ITS ---
Patient Name: KEVON HASKINS MR#: [id number] : 1950 Exam Date: 03/09/2025 Ordering Doctor: NEIDA MEREDITH CNP RADIOLOGY REPORT PROCEDURE: MM SCREENING MAMMO BI COMPARISON: MM SCREENING BI, 08/27/2023. MG MAMM SCREEN 3D JASON CAD, 11/21/2021. MG MAMM LT DIAG FU, 06/28/2017. MG MAMM JASON SCRN W CAD DIG, 08/04/2013. INDICATIONS: Screening Calculator Name NCI Breast Cancer Risk Assessment Tool 5 Year Breast Cancer Risk 1.40% Lifetime Breast Cancer Risk 3.50% Personal Breast Cancer No Personal Ovarian Cancer No Treatments None Family Cancers None LOCATION: [facility] BREAST COMPOSITION: The breasts are heterogeneously dense,which may obscure small masses. FINDINGS: RIGHT BREAST: No significant suspicious finding. Benign-appearing calcifications are present. Benign-appearing lymph nodes are present appeared LEFT BREAST: No significant suspicious finding. Benign-appearing calcifications are redemonstrated. There is a biopsy clip in the left breast. Benign-appearing lymph nodes are present. DIAGNOSTIC CATEGORY 2--BENIGN FINDING: RECOMMENDATIONS: ROUTINE MAMMOGRAM AND CLINICAL EVALUATION IN 12 MONTHS. PLEASE NOTE: A NORMAL MAMMOGRAM DOES NOT EXCLUDE THE POSSIBILITY OF BREAST CANCER. A CLINICALLY SUSPICIOUS PALPABLE LUMP SHOULD BE BIOPSIED. Dictated by: Rajan Chavez MD on 03/09/2025 at 13:33 Approved by: Rajan Chavez MD on 03/09/2025 at 13:45
--- OUTSIDE RECORDS SUMMARY | 2025-03-09 11:05 | XMS_ITS | Encounter Summary ---
Author Organization [facility] Address [address] [place] [address] Care Team Providers Care Field Insurance Sales Manager Name Role Phone Shaikh ELVIRA Fisher Unavailable [phone] Duyen Urbano NP Unavailable [phone] Navneet Vanegas MD Primary Care Provider Evelyn Tariq NP Unavailable [phone] Encounter Details Date Type Department Care Team (Late st Contact Info) Description 02/25/2025 Clinisync Result Encounter [facility] External Department Unsolicited Evelyn Tariq, LADLE LINER [address] [place] [address] Social History Tobacco Use Types Packs/Day Years [...] week 08/12/2023 How often do you attend chur or latter day services? 1 to 4 times per year 08/12/2023 Do you belong to any clubs o r organizations such as episcopalian groups, unions, fraternal or athletic groups, or [...] Recorded Patient Health Questionnaire-2 Score 0 02/24/2025 [facility] - Occupational Stress Questionnaire Answer Date [...] place to sleep or slept in a alf (including now)? No 08/12/2023 Comments Unknown Sex and Gender Information Value Date Recorded Sex Assigned at Not on file Legal Sex Female 7:12 PM EDT Gender Identity Not on file Sexual Orientation Not on file documented as of this encounter Plan of Treatment Upcoming Encounters Date Type Department Care Team ([facility] Contact Info) Description 03/11/2025 11:30 AM EDT Procedure Visit [facility] 112 [facility] [address] [place] [phone] Dave Ambrocio DPM [address] [facility] [address] [place] [address] 05/31/2025 9:40 AM EDT Office Visit [facility] [address] [place] [address] Evelyn Tariq NP [address] [place] [address] 03/01/2026 10:30 AM EDT Office Visit [facility] [address] [place] [address] Evelyn Tariq, AJIT [address] [place] [address] documented as of this encounter Procedures Procedure Name Priority Date/Time Associated Diagnosis Comments VITAMIN B12 Routine 02/25/2025 9:36 AM EDT [facility] CMP (CMP) (FOR REMOTE [facility] USE) Routine 02/25/2025 9:36 AM EDT ALL THYROXINE (T4) FREE Routine 02/25/2025 9:36 AM EDT ALL THYROID STIM HORMONE Routine 02/25/2025 9:36 AM EDT ALL LIPID PROFILE (FASTING) Routine 02/25/2025 9:36 AM EDT ALL CBC WITH AUTO DIFF Routine 02/25/2025 9:36 AM EDT TBH URINE MICROSCOPIC ONLY Routine 02/25/2025 9:08 AM EDT TBH UA (CLEAN/CATCH) MICROSCOPIC IF INDICATE Routine 02/25/2025 9:08 AM EDT TBH MICROALB CREAT RATIO RANDOM Routine 02/25/2025 9:08 AM EDT documented in this encounter Results * VITAMIN B12 (02/25/2025 9:36 AM EDT) VITAMIN B12 328 232 - 1245 pg/mL TBH Comment: Performed at: - [address] [id number] [employer] Architect: Maurice Holguin PhD, Phone: [phone] 02/25/2025 9:36 AM EDT 02/25/2025 9:40 AM EDT Narrative CLINISYNC - 02/26/2025 4:07 AM EDT Evelyn Tariq NP LAB BLOOD ORDERABLES Final Resu lt Performing Organization Address [facility] Co de Phone Number [facility] * ALL THYROXINE (T4) FREE (02/25/2025 9:36 AM EDT) FREE T4 0.99 0.76 - 1.46 ng/dL TB 02/25/2025 9:36 AM EDT 02/25/2025 9:40 AM EDT Narrative CLINISYNC - 02/25/2025 11:19 AM EDT Evelyn Tariq NP CLINISYNC Final Result Performing Organization Address [facility] Phone Number [facility] * ALL THYROID STIM HORMONE (02/25/2025 9:36 AM EDT) THYROID STIMULATING HORMONE 1.554 0.358 - 3.740 uIU/mL TBH 02/25/2025 9:36 AM EDT 02/25/2025 9:40 AM EDT Narrative CLINISYNC - 02/25/2025 11:01 AM EDT Evelyn Tariq NP CLINISYNC Final Result Performing Organization Address [facility] Phone Number [facility] * (ABNORMAL) ALL LIPID PROFILE (FASTING) (02/25/2025 9:36 AM EDT) TRIGLYCERIDES 66 <=150 mg/dL TBH CHOLESTEROL 249(H) <=200 mg/dL TBH HDL CHOLESTEROL 80(H) 40 - 60 mg/dL TBH Comment: > or =60 mg/dl - LOW CARDIOVASCULAR RISK <40 mg/dl - HIGH CARDIOVASCULAR RISK LDL CHOLESTEROL CALCULATED 156.0 mg/dL TB Comment: <100 mg/dl OPTIMAL 100-129 mg/dl NEAR OR ABOVE OPTIMAL 130-159 mg/dl BORDERLINE HIGH 160-189 mg/dl HIGH >190 mg/dl VERY HIGH VLDL CHOLESTEROL 13.2 mg/dL TBH CHOL HDL RATIO 3.1 TBH Comment: 3.3 - 4.4 LOW RISK 4.4 - 7.1 AVERAGE RISK 7.1 - 11.0 MODERATE RISK >11.0 HIGH RISK 02/25/2025 9:36 AM EDT 02/25/2025 9:40 AM EDT Narrative CLINISYNC - 02/25/2025 11:01 AM EDT us Evelyn Tariq LADLE LINER CLINISYNC Final Result [facility]NC [facility] * (ABNORMAL) [facility] CMP (CMP) (FOR REMOTE [facility] USE) (02/25/2025 9:36 AM EDT) SODIUM 141 136 - 145 mmol/L TBH POTASSIUM 4.0 3.5 - 5.1 mmol/L TBH CHLORIDE 105 98 - 107 mmol/L TBH CARBON DIOXIDE 31.3 21.0 - 32.0 mmol/L TBH ANION GAP 8.7 TBH GLUCOSE 96 74 - 106 mg/dL TBH BLOOD UREA NITROGEN 15.0 7.0 - 18.0 mg/dL TBH CREATININE 1.00 0.55 - 1.02 mg/dL TBH TBH EGFR-AF FAROESE >60 >=60 mL/min/1. 73m 2 TBH TBH EGFR-NON AF FAROESE 54(L) >=60 mL/min/1. 73m 2 TBH BUN CREATININE RATIO 15.0 TBH CALCIUM 9.5 8.5 - 10.1 mg/dL TBH BILIRUBIN TOTAL 1.5(H) 0.2 - 1.0 mg/dL TBH ASPARTATE AMINO TRANSFERASE 13(L) 15 - 37 U/L TBH ALANINE AMINOTRANSFERASE 12(L) 14 - 59 U/L TBH ALKALINE PHOSPHATASE 97 46 - 116 U/L TBH TOTAL PROTEIN 7.2 6.4 - 8.2 g/dL TBH ALBUMIN LEVEL 3.3(L) 3.4 - 5.0 g/dL TBH GLOBULIN 3.9 g/dL TBH ALBUMIN GLOBULIN RATIO 0.8 TBH 02/25/2025 9:36 AM EDT 02/25/2025 9:40 AM EDT Narrative CLINISYNC - 02/25/2025 11:01 AM EDT us Evelyn Tariq NP CLINISYNC Final Result CLINISYNC TB * (ABNORMAL) ALL CBC WITH AUTO DIFF (02/25/2025 9:36 AM EDT) TBH WBC 4.9 4.0 - 11.0 10 3/uL TBH TBH RBC 3.63(L) 4.20 - 5.40 10 6/uL TBH TBH HGB 11.6(L) 12.0 - 16.0 g/dL TBH TBH HCT 35.0(L) 36.0 - 48.0 % TBH TBH MCV 96.4 81.0 - 99.0 fL TBH TBH MCH 32.0 26.7 - 34.0 pg TBH TBH MCHC 33.1 29.9 - 35.2 g/dL TBH TBH RDW 13.7 11.0 - 15.0 % TBH TBH PLT 217 150 - 450 10 3/uL TBH TBH MPV 9.3(L) 9.5 - 13.5 fL TBH NEUTROPHILS PERCENT AUTO 65.9 43.0 - 75.0 % TBH LYMPHOCYTES PERCENT AUTO 17.9(L) 20.5 - 60.0 % TBH MONOCYTES PERCENT AUTO 14.6(H) 1.7 - 12.0 % TBH TBH EO % 0.8(L) 0.9 - 7.0 % TBH BASOPHILS PERCENT AUTO 0.4 0.2 - 2.0 % TBH IMMATURE GRANULOCYTES PCT AUTO 0.4 0.0 - 0.5 % TBH NEUTROPHILS ABSOLUTE AUTO 3.2 1.4 - 6.5 10 3/uL TBH LYMPHOCYTES ABSOLUTE AUTO 0.9(L) 1.2 - 3.8 10 3/uL TBH MONOCYTES ABSOLUTE AUTO 0.7 0.3 - 0.8 10 3/uL TBH TBH EO # 0.0 0.0 - 0.7 10 3/uL TBH BASOPHILS ABSOLUTE AUTO 0.0 0.0 - 0.1 10 3/uL TBH IMMATURE GRANULOCYTES ABS AUTO 0.02 0.00 - 0.03 10 3/uL TBH 02/25/2025 9:36 AM EDT 02/25/2025 9:40 AM EDT Narrative CLINISYNC - 02/25/2025 9:51 AM EDT Evelyn Tariq NP CLINISYNC Final Result Performing Organization Address [facility]/State/ZIP Co de Phone Number CLINISYNC TB * TBH MICROALB CREAT RATIO RANDOM (02/25/2025 9:08 AM EDT) MICROALBUMIN URINE RANDOM <1.3 <=30.0 mg/dL TBH CREATININE URINE RANDOM 73.15 20.00 - 300.00 mg/dL TBH 02/25/2025 9:08 AM EDT 02/25/2025 9:40 AM EDT Narrative CLINISYNC - 02/25/2025 3:00 PM EDT Evelyn Tariq NP CLINISYNC Final Result Performing Organization Address [facility] Co de Phone Number CLINISYOR TB * (ABNORMAL) TBH URINE MICROSCOPIC ONLY (02/25/2025 9:08 AM EDT) TBH WBC 2-5(A) NONE SEEN #/HPF TBH TBH RBC 0-2 0 - 2 #/HPF TBH BACTERIA URINE TRACE(A) NONE SEEN #/HPF TBH MUCUS URINE NONE SEEN NONE SEEN TBH SQUAMOUS EPITHELIAL CELL URINE FEW(A) NONE/RARE #/LPF TBH TRANSITIONAL EPI CELLS URINE RARE(A) NONE SEEN #/LPF TBH CRYSTALS SEEN? None Seen None Seen #/HPF TBH CAST SEEN? NONE SEEN NONE SEEN #/LPF TBH 02/25/2025 9:08 AM EDT 02/25/2025 9:40 AM EDT Narrative CLINISYNC - 02/25/2025 10:04 AM EDT Evelyn Tariq NP CLINISYNC Final Result CLINISYNC TBH * (ABNORMAL) TBH UA (CLEAN/CATCH) MICROSCOPIC IF INDICATE (02/25/2025 9:08 AM EDT) COLOR URINE LT. YELLOW YELLOW TBH CLARITY URINE CLEAR CLEAR TBH SPECIFIC GRAVITY URINE <=1.005(A) 1.005 - 1.025 TBH PH URINE 6.0 5.0 - 9.0 TBH PROTEIN URINE NEGATIVE NEG/TRACE mg/dL TBH GLUCOSE URINE UA NEGATIVE NEGATIVE mg/dL TBH BILIRUBIN URINE NEGATIVE NEGATIVE TBH KETONES URINE NEGATIVE NEGATIVE mg/dL TBH BLOOD URINE TRACE-I NEGATIVE TBH NITRITE URINE NEGATIVE NEGATIVE TBH UROBILINOGEN URINE 0.2 0.2 - 1.0 EU/dL TBH LEUKOCYTE ESTERASE URINE SMALL(A) NEGATIVE TBH URINE MICROSCOPIC INDICATED YES TBH 02/25/2025 9:08 AM EDT 02/25/2025 9:40 AM EDT Narrative CLINISYNC - 02/25/2025 10:04 AM EDT us Evelyn Tariq NP CLINISYNC Final Result Performing Organization Address City/[facility] Co de Phone Number CLIN[facility]AL[facility] TB documented in this encounter Visit Diagnoses Not on filedocumented in this encounter Additional Health Concerns Assessment Noted Time PHQ-9 Depression Total Score: 0 02/25/20 25 9:45 AM EDT A fall risk assessment has been complete d for the patient 02/24/2025 9:45 AM EDT documented as of this encounter Care Teams Field Insurance Sales Manager Relationship Specialty Start Date End Date Shaikh Fisher MD [address] [place] [address] PCP - Devoted 09/16/23 Navneet Vanegas MD [address] [place] [address] PCP - General Family Medicine 02/23/25 Duyen Urbano NP [address] [place] [address] Nurse Practitioner Family Medicine 05/26/24 Evelyn Tariq NP [address] [place] [address] Nurse Practitioner Family Medicine 02/23/25 documented as of this encounter
--- OUTSIDE RECORDS SUMMARY | 2025-03-09 11:05 | XMS_ITS | Encounter Summary ---
Author Organization Room 77 tem Address [id number] [address] [place] [address] Care Team Providers Care Academic Dean Name Role Phone Mc Andrade MD Primary Care Provider [phone] Encounter Details Date Type Department Care Team (Late st Contact Info) Description 10/02/2023 Telephone [facility] Physicians Internal Medicine - Family Medicine [address] [place] [phone] Terra Vance CMA Social History Tobacco Use Types Packs/Day Years Used Date Smoking Tobacco: Never Smokeless Tobacco: Never PHQ-2 Answer Date Recorded Total Score 0 07/11/2023 Childcare Answer Date Recorded Childcare Unknown 02/25/2019 Employment Answer Date Recorded Employment Unknown 02/25/2019 Hunger Screening Answer Date Recorded Within the past 12 months we worried whether our food would run out before we got money to buy more. Never True 07/11/2023 Within the past 12 months th e food we bought just didn't last and we didn't have money to get more. Never True 07/11/2023 Purpose - Life Answer Date Recorded Purpose and direction in life Unknown Comments No Sex and Gender Information Value Date Recorded Sex Assigned at Not on file Legal Sex Female 11:28 AM EDT Gender Identity Not on file Sexual Orientation Not on file documented as of this encounter Miscellaneous Notes * Telephone Encounter - Terra Vance CMA - 10/02/2023 12:26 PM EST ----- Message from Jamil Yoder DO sent at 07/11/2023 5:31 PM EDT ----- Memory recheck * Telephone Encounter - Terra Vance CMA - 10/02/2023 12:26 PM EST Patient called back and stated that she is seeing Dr. Fisher. Her told her she was not a loud to leave his practice and she will no longer be seeing us as her PCP * Telephone Encounter - Jmail Yoder DO - 10/02/2023 12:26 PM EST Message noted. Please delete her as my patient documented in this encounter Plan of Treatment Not on file documented as of this encounter Visit Diagnoses Not on filedocumented in this encounter Additional Health Concerns Assessment Noted Time PHQ-9 Depression Total Score: 0 07/11/20 23 11:55 AM EDT documented as of this encounter Care Teams Academic Dean Relationship Specialty Start Date End Date Mc Andrade MD [address] [place] [address] PCP - General Family Medicine 07/23/24 documented as of this encounter
--- OUTSIDE RECORDS SUMMARY | 2025-03-09 11:05 | XMS_ITS | Encounter Summary ---
Author Organization [facility] Address [address] [place] [address] Care Team Providers Care Credit Card Analyst Name Role Phone Shaikh ELVIRA Fisher Unavailable [phone] Navneet Vanegas MD Primary Care Provider Duyen Urbano FIBRE COMPOSITE TECHNICIAN Unavailable Mc Andrade MD Primary Care Provider [phone] Navneet Vanegas MD Primary Care Provider Evelyn Tariq NP Unavailable [phone] Encounter Details Date Type Department Care Team (Late st Contact Info) Description 07/27/[address] [facility] [address] [place] [address] Navneet Vanegas MD [address] [place] [address] Social History Tobacco Use Types Packs/Day Years [...] How often do you attend chur or baptist services? 1 to 4 times per year 08/12/2023 Do you belong to any clubs o r organizations such as restoration groups, unions, fraternal or athletic groups, or [...] Date Recorded Patient Health Questionnaire-2 Score 0 04/14/2024 [facility] - Occupational Stress [...] place to sleep or slept in a mcc (including now)? No 08/12/2023 Comments Unknown Sex and Gender Information Value Date Recorded Sex Assigned at Not on file Legal Sex Female 7:12 PM EDT Gender Identity Not on file Sexual Orientation Not on file documented as of this encounter Plan of Treatment Upcoming Encounters Date Type Department Care Team ([facility] st Contact Info) Description 03/11/2025 11:30 AM EDT Procedure Visit [facility] 112 [facility] [address] [place] [address] Dave Ambrocio DPM [address] [facility] [address] [place] [address] 05/31/2025 9:40 AM EDT Office Visit [facility] [address] [place] [address] Evelyn Tariq NP [address] [place] [address] 03/01/2026 10:30 AM EDT Office Visit [facility] [address] [place] [phone] Evelyn Tariq, AJIT [address] [place] [address] documented as of this encounter Visit Diagnoses Not on filedocumented in this encounter Additional Health Concerns Assessment Noted Time PHQ-9 Depression Total Score: 0 01/06/20 10:27 AM EDT documented as of this encounter Care Teams Credit Card Analyst Relationship Specialty Start Date End Date Shaikh Fisher MD [address] [place] [phone] PCP - Devoted 09/16/23 Navneet Vanegas MD [address] [place] [address] PCP - General Family Medicine 05/26/24 10/05/24 Mc Andrade MD [address] [place] [address] PCP - General Family Medicine 10/06/24 02/22/25 Navneet Vanegas MD [address] [place] [address] PCP - General Family Medicine 02/23/25 Duyen Urbano NP [address] [place] [address] Nurse Practitioner Family Medicine 05/26/24 Evelyn Tariq NP [address] [place] [address] Nurse Practitioner Family Medicine 02/23/25 documented as of this encounter
--- OUTSIDE RECORDS SUMMARY | 2025-03-09 11:05 | XMS_ITS | Clinical Summary ---
Author Organization [facility] Address [address] [place] [address] Care Team Providers Care Refrigeration Systems Installer Name Role Phone Shaikh ELVIRA Fisher Unavailable [phone] Duyen Urbano NP Unavailable Navneet Vanegas MD Primary Care Provider Evelyn Tariq NP Unavailable [phone] Allergies Active Allergy Reactions Criticality Noted Date Comments Morphine Itching Low 06/27/2023 Other Reaction(s): Hallucinations Oxycodone-Acetaminophen Itching Low 02/23/2014 Wound Dressing Adhesive Low 04/14/2014 Other Reaction(s): Other (See Comments) redness Medications albuterol HFA 90 mcg/act inhalerIndicatio ns:Mild intermittent asthma with status asthmaticus (HCC) Inhale 2 puffs every 6 (six) hours if needed for wheezing 18 g 02/25/20 25 025 Active atorvastatin (Lipitor) 20 MG tabletIndication s:Dyslipidemia Take 1 tablet (20 mg) by mouth Daily 90 tablet 1 02/25/20 25 025 Active losartan (Cozaar) 50 MG tabletIndication s:Hypertension Take 1 tablet (50 mg) by mouth Daily 90 tablet 1 02/25/20 25 025 Active mirtazapine (Remeron) 7.5 MG tabletIndication s: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 (HCC) Take 1 tablet (7.5 mg) by mouth at bedtime 90 tablet 1 02/25/20 25 025 Active risperiDONE (RisperDAL) 0.5 MG tabletIndication s:Behavioral Disorders associated with Dementia Take 1 tablet (0.5 mg) by mouth in the morning and 1 tablet (0.5 mg) before bedtime. 180 tablet 1 02/25/20 25 025 Active losartan (Cozaar) 50 MG tabletIndication s:Hypertension Take 1 tablet (50 mg) by mouth Daily 90 tablet 01/06/20 25 025 Discontinued(Re order) atorvastatin (Lipitor) 20 MG tabletIndication s:Dyslipidemia Take 1 tablet (20 mg) by mouth Daily 90 tablet 01/06/20 25 025 Discontinued(Re order) risperiDONE (RisperDAL) 0.5 MG tabletIndication s: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 (HCC) Take 1 tablet (0.5 mg) by mouth in the morning and 1 tablet (0.5 mg) before bedtime. 180 tablet 01/06/20 25 025 Discontinued(Re order) mirtazapine (Remeron) 7.5 MG tabletIndication s: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 (HCC) Take 1 tablet (7.5 mg) by mouth at bedtime 90 tablet 01/06/20 25 025 Discontinued(Re order) albuterol HFA 90 mcg/act inhalerIndicatio ns:Mild intermittent asthma with status asthmaticus (HCC) Inhale 2 puffs every 6 (six) hours if needed for wheezing 18 g 02/04/20 25 025 Discontinued Active Problems Problem Noted Date Diagnosed Date Encounter for subsequent [facility] wellness visit (AWV) in Medicare patient 02/24/2025 Assessment & Plan (02/24/2025 6:32 AM EDT): Reviewed Ht/Wt/BMI Recommend eye exam yearly Recommend dental exams twice a year Balance work/leisure activities Exercises is recommended most days of the week (appropriate as chronic conditions allow) Follow up yearly and prn Colon cancer screening declined 02/24/2025 Delusional disorder 11/24/2024 COVID-19 10/12/2024 Assessment & Plan (10/12/2024 10:32 AM EST): Was seen in ED on 10/02 for COVID and ear infection. Was tx with Augmentin for otitis media and tylenol for fever/pain. Reports mild cough intermittently still persists. States most symptoms have since subsided. No complaints or concerns at this time. Denies shortness of breath/chest pain/ear pain/dizziness/N/V/D. Brief reactive psychosis 06/30/2024 Hyperlipidemia 06/30/2024 Assessment & Plan (02/24/2025 6:26 AM EDT): On statin therapy Check labs yearly and prn dose changes Dementia in Alzheimer's dise ase with early onset with behavioral disturbance 09/26/2023 Assessment & Plan (02/24/2025 6:24 AM EDT): Does not follow with neurology Is taking remeron and risperidone Spouse feels things are going well Assessment & Plan (11/24/2024 11:20 AM EDT): Does not follow with neurology Is taking remeron and risperidone Spouse feels things are going well Assessment & Plan (04/14/2024 4:34 PM EDT): She is now on Seroquel. Her symptoms have improved a little. Following Neurology. Patient is very defensive about her diagnosis and in denial. Assessment & Plan (01/06/2024 11:04 AM EDT): She is now on Seroquel. Her symptoms have improved a little. Assessment & Plan (09/26/2023 2:49 AM EST): Ongoing, chronic but worsened and progressed over past one year. Patient is confused, has poor insight, not aware of her memory impairment, has associated behavioral problems including anxiety, paranoid thoughts and beliefs regarding family members dante her . She lives with her who is very understanding but for unclear reason, she is especially paranoid about him accusing him of bringing women to the house. Patient's sense of reality is quite impaired. Other family members are not quite well aware but lately, there has been a slow realization that she has dementia and she needs help. Patient seen by Neurology recently - MRI brain scheduled for tomorrow. She was previously prescribed Aricept but she refused to use as she defiantly insisted that her memory is fine. Screening mammogram, encounter for 08/12/2023 Assessment & Plan (08/12/2023 10:12 AM EST): Last Mammogram 12/05 - normal. Repeat ordered Confusion 07/31/2023 B12 deficiency 07/11/2023 Assessment & Plan (02/24/2025 6:25 AM EDT): Check labs Acute pain of left shoulder 06/27/2023 Arthritis of left acromioclavicular joint 2022 Arthritis of right hip 06/27/2023 Dizziness 06/27/2023 Mild intermittent asthma with status asthmaticus 06/27/2023 Assessment & Plan (01/06/2024 11:05 AM EDT): Well controlled. On ventolin as needed. Assessment & Plan (09/26/2023 2:36 AM EST): Poor insight. Does not use Symbicort as prescribed. Uses albuterol as needed. No recent asthma exacerbation. Stable and well controlled but requires use of albuterol inhaler > 3-4 times per week Assessment & Plan (08/12/2023 10:11 AM EST): Well controlled on Symbicort. No recent asthma exacerbations Cardiac murmur 06/27/2023 Hypothyroid 06/27/2023 Assessment & Plan (02/24/2025 6:25 AM EDT): Check labs , does not currently take any supplement Assessment & Plan (09/26/2023 2:40 AM EST): Was previously on Cytomel. Off of any thyroid medication. TSH - normal 06/08 No need for thyroid replacement Meniere's disease of left ear 06/27/2023 MCI (mild cognitive impairment) with memory loss 06/27/2023 Assessment & Plan (08/12/2023 10:11 AM EST): Chronic ongoing. Reluctant, and hesitant for any evaluation. Normal B12, TSH. Refer to Neurology Depression 06/27/2023 Assessment & Plan (11/24/2024 11:19 AM EDT): Difficult to assess, appears to be stable on current meds Current meds: mirtazapine and risperidone Hypertension 05/15/2014 Assessment & Plan (02/24/2025 6:24 AM EDT): Please check blood pressure daily and record DASH diet Limit caffeine Take medication as directed Contact office if chest pain, pressure, dizziness, shortness of breath, swelling legs Recommend slow position changes Current meds: losartan Assessment & Plan (11/24/2024 11:18 AM EDT): Please check blood pressure daily and record DASH diet Limit caffeine Take medication as directed Contact office if chest pain, pressure, dizziness, shortness of breath, swelling legs Recommend slow position changes Current meds: losartan Assessment & Plan (04/14/2024 4:34 PM EDT): Hx of HTN and was on Losartan for it but stopped using because she felt fine Above goal in office but given her memory impairment, it is not unreasonable to be more lenient with BP targets. Usually less than 140/90 Monitor for now. Assessment & Plan (09/26/2023 2:38 AM EST): Hx of HTN and was on Losartan for it but stopped using because she felt fine Above goal in office but given her memory impairment, it is not unreasonable to be more lenient with BP targets. Monitor for now. Will not resume Losartan. Assessment & Plan (08/12/2023 10:12 AM EST): Well controlled. On Losartan. C/w same Resolved Problems Problem Noted Date Diagnosed Date Resolved Date Dementia 11/24/2024 11/24/2024 Dyslipidemia 08/12/2023 02/24/2025 Assessment & Plan (11/24/2024 11:19 AM EDT): On statin Check labs yearly and prn dose changes Assessment & Plan (04/14/2024 4:35 PM EDT): On Lipitor. Lipids are improved while on lipitor. She uses lipitor sporadically. Reiterated the importance of using medications as prescribed Assessment & Plan (01/06/2024 11:04 AM EDT): On Lipitor. Check Lipid panel and LFTs. Assessment & Plan (09/26/2023 2:42 AM EST): Patient was previously on Lipitor - not using it anymore. Given her memory impairment, confusion - not treating her for it especially when she has no known ASCVD, hx of T2 DM - will not be an unreasonable approach. Monitor periodically as clinically indicated. Hypotension 05/15/2014 11/24/2024 Encounters Date Type Department Care Team Description 02/25/2025 Clinisync Result Encounter [facility] External Department Unsolicited Evelyn Tariq NP 02/24/2025 10:00 AM EDT Office Visit [facility] [address] [place] [phone] Evelyn Tariq NP Encounter for subsequent annual wellness visit (AWV) in Medicare patient (Primary Dx); 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 (HCC); Primary hypertension ; B12 deficiency; Hypothyroidism, unspecified type ; Mixed hyperlipidemia ; Screening mammogram, encounter for; Colon cancer screening declined; Dyslipidemia 02/24/2025 Refill [facility] [address] [place] [phone] Evelyn Tariq NP Mild intermittent asthma with status asthmaticus (HCC) 02/03/2025 Refill [facility] [address] [place] [phone] Evelyn Tariq, AJIT Mild intermittent asthma with status asthmaticus (HCC) 01/11/2025 Refill [facility] [address] [place] [address] Navneet Vanegas MD 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 (HCC) 01/04/2025 Refill [facility] [address] [place] [address] Evelyn Tariq NP Primary hypertension ; Dyslipidemia ; 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 (HCC); Mild intermittent asthma with status asthmaticus (HCC) 12/31/2024 11:30 AM EDT Office Visit [facility] [address] [facility] [address] [place] [phone] Dave Ambrocio DPM Venous insufficiency (Primary Dx); Pain due to onychomycosis of toenails of both feet 12/31/2024 Bamboo flowsheet [facility] [address] [facility] [address] [place] [phone] Dave Ambrocio DPM 12/31/2024 Travel from Last 3 Months Immunizations Immunization Administration Dates Next Due Influenza, High Dose Seasonal, Preservative Free 07/11/2024 Influenza, High-dose Seasona l, Quadrivalent, Preservative Free 07/13/2023 Influenza, injectable, quadrivalent 09/14/2014 Pneumococcal Conjugate PCV 20 12/02/2024 Pneumococcal Polysaccharide PPSV23 07/16/2008 SARS-COV-2 (COVID-19) vaccin e, mRNA, spike protein, LNP, PF, kristi-sucrose, 30 mcg/0.3 mL 07/11/2024 Tdap 12/02/2024 Zoster, Recombinant 12/02/2024 Zoster, live 09/02/2015 Family History Medical History Relation Name Comments Heart disease Father Hypertension Father Heart disease Mother Hypertension Mother Other Mother Mitral Valve Di sorder Stroke Mother Relation Name Status Comments Father Mother Alive Social History Tobacco Use Types Packs/Day Years Used Date Smoking Tobacco: Never Passive Smoke Exposure: Never Smokeless Tobacco: Never Tobacco Cessation:Counseling Given: Yes Alcohol Use Standard Drinks/Week Comments Never 0 [...] week 08/12/2023 How often do you attend [facility] or faith services? 1 to 4 times per year 08/12/2023 Do you belong to any clubs o r organizations such as religion groups, unions, fraternal or athletic groups, or [...] Recorded Patient Health Questionnaire-2 Score 0 02/24/2025 [place] [facility] - Occupational Stress [...] place to sleep or slept in a intermediate (including now)? No 08/12/2023 Comments Unknown Sex and Gender Information Value Date Recorded Sex Assigned at Not on file Legal Sex Female 7:12 PM EDT Gender Identity Not on file Sexual Orientation Not on file Last Filed Vital Signs Vital Sign Reading [...] oz) 02/24/2025 9:39 A M EDT Height 154.9 cm (5' 1 ) 12/31/2024 11:53 AM EDT Body Mass Index 30.91 12/31/2024 11:53 AM EDT Plan of Treatment Upcoming Encounters Date Type Department Care Team ([facility] st Contact Info) Description 03/11/2025 11:30 AM EDT Procedure Visit [facility] [address] [facility] [address] [place] [address] Dave Ambrocio DPM [address] [facility] [address] [place] [address] 05/31/2025 9:40 AM EDT [facility] [address] [place] [phone] Evelyn Tariq, URGENT CARE PHYSICIAN [address] [place] [phone] 03/01/2026 10:30 AM EDT [facility] [address] [place] [phone] Evelyn Tariq, AJIT [address] [place] [phone] Health Maintenance Due Date Last Done Comments CT Colonography 1952 Colonoscopy 1952 FIT 1952 FOBT 1950 Sigmoidoscopy 1952 FIT-DNA 09/16/2023 09/16/2020 Mammogram 08/27/2024 08/27/2023, 08/16, 11/21/2021, Additional history exists Colorectal Cancer Screening 02/24/2026 Postponed from 1952 (Patient Refused) Influenza Vaccine Completed 07/11/2024, , 09/14/2014 Pneumococcal Vaccine: 65+ Years Completed 12/02/2024, 07/16/2008 Procedures Procedure Name Priority Date/Time Associated Diagnosis Comments VITAMIN B12 Routine 02/25/2025 9:36 AM EDT ALL THYROXINE (T4) FREE Routine 02/25/2025 9:36 AM EDT ALL THYROID STIM HORMONE Routine 02/25/2025 9:36 AM EDT ALL LIPID PROFILE (FASTING) Routine 02/25/2025 9:36 AM EDT [facility] CMP (CMP) (FOR REMOTE [facility] USE) Routine 02/25/2025 9:36 AM EDT ALL CBC WITH AUTO DIFF Routine 02/25/2025 9:36 AM EDT TBH MICROALB CREAT RATIO RANDOM Routine 02/25/2025 9:08 AM EDT TBH URINE MICROSCOPIC ONLY Routine 02/25/2025 9:08 AM EDT TBH UA (CLEAN/CATCH) MICROSCOPIC IF INDICATE Routine 02/25/2025 9:08 AM EDT MM SCREENING MAMM WITH 3D MESHA - US AND ADDITIONAL Routine 08/27/2023 2:20 PM EST from Last 3 Months or Most Recently Relevant to Health Maintenance Results * VITAMIN B12 (02/25/2025 9:36 AM EDT) VITAMIN B12 328 232 - 1245 pg/mL TB Comment: Performed at: - [facility], [place], [place] [id number] Solids Control Technician: Maurice Holguin PhD, Phone: [phone] 02/25/2025 9:36 AM EDT 02/25/2025 9:40 AM EDT Narrative CLINIS[facility]NC - 02/26/2025 4:07 AM EDT us Evelyn Tariq NP LAB BLOOD ORDERABLES Final Resu lt CLINISYNC TB * (ABNORMAL) [facility] CMP (CMP) (FOR REMOTE [facility] USE) (02/25/2025 9:36 AM EDT) SODIUM 141 136 - 145 mmol/L TBH POTASSIUM 4.0 3.5 - 5.1 mmol/L TBH CHLORIDE 105 98 - 107 mmol/L TBH CARBON DIOXIDE 31.3 21.0 - 32.0 mmol/L TBH ANION GAP 8.7 TBH GLUCOSE 96 74 - 106 mg/dL TBH BLOOD UREA NITROGEN 15.0 7.0 - 18.0 mg/dL TBH CREATININE 1.00 0.55 - 1.02 mg/dL TBH TBH EGFR-AF GERMAN >60 >=60 mL/min/1. 73m 2 TBH TBH EGFR-NON AF GERMAN 54(L) >=60 mL/min/1. 73m 2 TBH BUN [...] EDT Evelyn Tariq NP CLINISYNC Final Result CLINIS[facility]MN TB * ALL THYROXINE (T4) FREE (02/25/2025 9:36 AM EDT) FREE T4 0.99 0.76 - 1.46 ng/dL TBH 02/25/2025 9:36 AM EDT 02/25/2025 9:40 AM EDT Narrative CLINISYNC - 02/25/2025 11:19 AM EDT Evelyn Chandni URGENT CARE PHYSICIAN CLINISYMN Final Result Performing Organization Address [facility]/ZIP Co de Phone Number [facility] * ALL THYROID STIM HORMONE (02/25/2025 9:36 AM EDT) THYROID STIMULATING HORMONE 1.554 0.358 - 3.740 uIU/mL TBH 02/25/2025 9:36 AM EDT 02/25/2025 9:40 AM EDT Narrative CLINISYNC - 02/25/2025 11:01 AM EDT Evelyn Tariq NP CLINISYNC Final Result Performing Organization Address [facility] de Phone Number [facility] * (ABNORMAL) ALL LIPID PROFILE (FASTING) (02/25/2025 9:36 AM EDT) TRIGLYCERIDES 66 <=150 mg/dL TBH CHOLESTEROL 249(H) <=200 mg/dL TB HDL CHOLESTEROL 80(H) 40 - 60 mg/dL TB Comment: > or =60 mg/dl - LOW CARDIOVASCULAR RISK <40 mg/dl - HIGH CARDIOVASCULAR RISK LDL CHOLESTEROL CALCULATED 156.0 mg/dL TB Comment: <100 mg/dl OPTIMAL 100-129 mg/dl NEAR OR ABOVE OPTIMAL 130-159 mg/dl BORDERLINE HIGH 160-189 mg/dl HIGH >190 mg/dl VERY HIGH VLDL CHOLESTEROL 13.2 mg/dL TB CHOL HDL RATIO 3.1 TB Comment: 3.3 - 4.4 LOW RISK 4.4 - 7.1 AVERAGE RISK 7.1 - 11.0 MODERATE RISK >11.0 HIGH RISK 02/25/2025 9:36 AM EDT 02/25/2025 9:40 AM EDT Narrative CLINISYNC - 02/25/2025 11:01 AM EDT us Evelyn Tariq URGENT CARE PHYSICIAN CLINISYNC Final Result CLINIS[facility]NC TB * (ABNORMAL) ALL CBC WITH AUTO DIFF (02/25/2025 9:36 AM EDT) [facility] TB WBC 4.9 4.0 - 11.0 10 3/uL [...] NP CLINISYNC Final Result Performing Organization Address [facility] Co de Phone Number CLINISYNC TBH * (ABNORMAL) TBH URINE MICROSCOPIC ONLY (02/25/2025 9:08 AM EDT) Pathologist [facility] TB WBC 2-5(A) NONE SEEN #/HPF TBH TBH [...] NP CLINISYNC Final Result Performing Organization Address [facility] de Phone Number CLINISYNC TBH * (ABNORMAL) TBH UA (CLEAN/CATCH) [...] NP CLINISYNC Final Result Performing Organization Address [facility]/ZIP Co de Phone Number CLINISYMN TB * TBH MICROALB CREAT RATIO RANDOM (02/25/2025 9:08 AM EDT) MICROALBUMIN URINE RANDOM <1.3 <=30.0 mg/dL TBH CREATININE URINE RANDOM 73.15 20.00 - 300.00 mg/dL TBH 02/25/2025 9:08 AM EDT 02/25/2025 9:40 AM EDT Narrative CLINISYNC - 02/25/2025 3:00 PM EDT us Evelyn Tariq NP CLINISYNC Final Result Performing Organization Address [facility] de Phone [facility] * MM SCREENING MAMM WITH 3D MESHA - US AND ADDITIONAL (08/27/2023 2:20 PM EST) Anatomical Region Laterality Modality Radiographic Kristi ging us Shaikh Natalia FELIX IMG XR PROCEDURES Final Result from Last 3 Months or Most Recently Relevant to Health Maintenance Insurance [employer] Care Teams Refrigeration Systems Installer Relationship Specialty Start Date End Date Shaikh Fisher MD [address] [place] [phone] PCP - [employer]oted 09/16/23 Navneet Vanegas MD [address] [place] [phone] PCP - General Family Medicine 02/23/25 Duyen Urbano NP [address] [place] [phone] Nurse Practitioner Family Medicine 05/26/24 Evelyn Tariq NP [address] [place] [phone] Nurse Practitioner Family Medicine 02/23/25
--- OUTSIDE RECORDS SUMMARY | 2025-03-09 11:05 | XMS_ITS | Encounter Summary ---
Author Organization [facility] Address [address] [place] [address] Care Team Providers Care Computer Applications Engineer Name Role Phone Shaikh ELVIRA Fisher Unavailable [phone] Duyen Urbano NP Unavailable [phone] Navneet Vanegas MD Primary Care Provider Evelyn Tariq NP Unavailable [phone] Reason for Visit * Reason Comments Med Refill Encounter Details Date Type Department Care Team (Late st Contact Info) Description 02/24/2025 Refill [facility] [address] [place] [address] Evelyn Tariq NP [address] [place] [address] Mild intermittent asthma with status asthmaticus ([facility]) Social History Tobacco Use Types Packs/Day Years [...] How often do you attend chur or uatsdin services? 1 to 4 times per year 08/12/2023 Do you belong to any clubs o r organizations such as jainism groups, unions, fraternal or athletic groups, or [...] Recorded Patient Health Questionnaire-2 Score 0 02/24/2025 [facility] [place] [facility] Occupat ional Health - Occupational Stress [...] place to sleep or slept in a jail (including now)? No 08/12/2023 Comments Unknown Sex and Gender Information Value Date Recorded Sex Assigned at Not on file Legal Sex Female 7:12 PM EDT Gender Identity Not on file Sexual Orientation Not on file documented as of this encounter Functional Status * Over the past 2 weeks, how often have you been bothered by any of the following problems? Question Answer Date of Assessment Author Little interest or pleasure in doing things Not at all 02/24/2025 9:45 AM KARLA FITZGERALD Feeling down, depressed, or hopeless Not at all 02/24/2025 9:45 AM KARLA FITZGERALD Patient Health Questionnaire -2 Score 0 02/24/2025 9:45 AM KARLA FITZGERALD * Question Answer Date of Assessment Author Trouble falling or staying asleep, or sleeping too much Not at all 02/24/2025 9:45 AM SYDNEYT [place] LEWIS Feeling tired or having veena le energy Not at all 02/24/2025 9:45 AM EDT KARLA SANDRA Poor appetite or overeating Not at all 02/24/2025 9: 45 AM EDT [place] SANDRA Feeling bad about yourself - or that you are a failure or have let yourself or your family down Not at all 02/24/2025 9:45 AM EDT [place] LANDEROS Trouble concentrating on thi ngs, such as reading the newspaper or watching television Not at all 02/24/2025 9:45 AM EDT KARLA SANDRA Moving or speaking so slowly that other people could have noticed? Or the opposite - being so fidgety or restless that you have been moving around a lot more than usual. Not at all 02/24/2025 9:45 AM EDT KARLA SANDRA Thoughts that you would be better off or hurting yourself in some way Not at all 02/24/2025 9:45 AM EDT BOOM SANDRA BEAL Patient Health Questionnaire -9 Score 0 02/24/2025 9:45 AM EDT KARLA SANDRA documented as of this encounter Plan of Treatment Upcoming Encounters Date Type Department Care Team ([facility] st Contact Info) Description 03/11/2025 11:30 AM EDT Procedure Visit [facility] [address] [facility] [address] [place] [phone] aDve Ambrocio, DPTiesha [address] [facility] [address] [place] [address] 05/31/2025 9:40 AM EDT Office Visit [facility] [address] [place] [address] Evelyn Tariq NP [address] [place] [phone] 03/01/2026 10:30 AM EDT Office Visit [facility] [address] [place] [phone] Evelyn Tariq, AJIT [address] [place] [phone] documented as of this encounter Visit Diagnoses Diagnosis Mild intermittent asthma with status asthmaticus (HCC) Pain due to onychomycosis of toenails of both feet- Primary Venous insufficiency Unspecified venous (peripheral) insufficiency documented in this encounter Additional Health Concerns Assessment Noted Time PHQ-9 Depression Total Score: 0 02/25/20 9:45 AM EDT A fall risk assessment has been complete d for the patient 02/24/2025 9:45 AM EDT documented as of this encounter Care Teams Computer Applications Engineer Relationship Specialty Start Date End Date Shaikh Fisher MD [address] [place] [phone] PCP - Devoted 09/16/23 Navneet Vanegas MD [address] [place] [phone] PCP - General Family Medicine 02/23/25 Duyen Urbano NP [address] [place] [phone] Nurse Practitioner Family Medicine 05/26/24 Evelyn Tariq NP [address] [place] [phone] Nurse Practitioner Family Medicine 02/23/25 documented as of this encounter
--- OUTSIDE RECORDS SUMMARY | 2025-03-09 11:06 | XMS_ITS | Encounter Summary ---
Author Organization [facility] Address [address] [place] [address] Care Team Providers Care Fire Department Marine Engineer Name Role Phone Shaikh ELVIRA Fisher Unavailable [phone] Navneet Vanegas MD Primary Care Provider Duyen Urbano NP Unavailable [phone] Mc Andrade MD Primary Care Provider [phone] Navneet Vanegas MD Primary Care Provider Evelyn Tariq NP Unavailable Encounter Details Date Type Department Care Team (Late st Contact Info) Description 07/27/2024 Abstract [facility] [address] [place] [phone] Unallocated, Noms MD Wilver [address] [place] [address] Social History Tobacco Use Types Packs/Day Years [...] week 08/12/2023 How often do you attend [facility] or scientology services? 1 to 4 times per year 08/12/2023 Do you belong to any clubs o r organizations such as spiritism groups, unions, fraternal or athletic groups, or [...] Recorded Patient Health Questionnaire-2 Score 0 04/14/2024 [facility] [place] of Occupat ional Health - Occupational Stress [...] place to sleep or slept in a longterm (including now)? No 08/12/2023 Comments Unknown Sex and Gender Information Value Date Recorded Sex Assigned at Not on file Legal Sex Female 7:12 PM EDT Gender Identity Not on file Sexual Orientation Not on file documented as of this encounter Plan of Treatment Upcoming Encounters Date Type Department Care Team ([facility] st Contact Info) Description 03/11/2025 11:30 AM EDT Procedure Visit [facility] 112 [facility] [address] [place] [address] Dave Ambrocio DPM 6426 [facility] 5 [place] [address] 05/31/2025 9:40 AM EDT Office Visit [facility] [address] [place] [address] Evelyn Tariq NP [address] [place] [address] 03/01/2026 10:30 AM EDT Office Visit [facility] [address] [place] [address] Evelyn Tariq NP [address] [place] [address] documented as of this encounter Visit Diagnoses Not on filedocumented in this encounter Additional Health Concerns Assessment Noted Time PHQ-9 Depression Total Score: 0 01/06/20 10:27 AM EDT documented as of this encounter Care Teams Fire Department Marine Engineer Relationship Specialty Start Date End Date Shaikh Fisher MD [address] [place] [address] PCP - Devoted 09/16/23 Navneet Vanegas MD [address] [place] [address] PCP - General Family Medicine 05/26/24 10/05/24 Mc Andrade MD [address] [place] [address] PCP - General Family Medicine 10/06/24 02/22/25 Navneet Vanegas MD [address] [place] [address] PCP - General Family Medicine 02/23/25 Duyen Urbano NP [address] [place] [address] Nurse Practitioner Family Medicine 05/26/24 Evelyn Tariq NP [address] [place] [address] Nurse Practitioner Family Medicine 02/23/25 documented as of this encounter
--- OUTSIDE RECORDS SUMMARY | 2025-03-09 11:06 | XMS_ITS | Encounter Summary ---
Author Organization [facility] Address [address] [place] [address] Care Team Providers Care Spinning Frame Tender Name Role Phone Shaikh ELVIRA Fisher Primary Care Provider Shaikh ELVIRA Fisher Unavailable [phone] Shaikh ELVIRA Fisher Primary Care Provider Navneet Vanegas MD Primary Care Provider Duyen Urbano MACROECONOMICS PROFESSOR Unavailable Mc Andrade MD Primary Care Provider [phone] Navneet Vanegas MD Primary Care Provider Evelyn Tariq MACROECONOMICS PROFESSOR Unavailable [phone] Encounter Details Date Type Department Care Team (Late st Contact Info) Description 08/29/2023 Orders Only [facility] [address] [place] [address] Shaikh Fisher MD [address] [place] [address] Social History Tobacco Use Types Packs/Day Years [...] week 08/12/2023 How often do you attend [facility] or moravian services? 1 to 4 times per year 08/12/2023 Do you belong to any clubs o r organizations such as samaritan groups, unions, fraternal or athletic groups, or [...] Answer Date Recorded Patient Health Questionnaire-2 Score 2 08/12/2023 [facility] [place] of Occupat ional Health - Occupational Stress [...] place to sleep or slept in a penitentiary (including now)? No 08/12/2023 Comments Unknown Sex [...] EDT Procedure Visit [facility] 112 [facility] 120 [place] [address] Dave Ambrocio DPTiesha 1162 [facility] 5 [place] [address] 05/31/2025 9:40 AM EDT Office Visit [facility] [address] [place] [address] Evelyn Tariq, AJIT [address] [place] [address] 03/01/2026 10:30 AM EDT Office Visit [facility] [address] [place] [address] Evelyn Tariq, AJIT [address] [place] [address] documented as of this encounter Procedures Procedure Name Priority Date/Time Associated Diagnosis Comments MM SCREENING MAMM WITH 3D MESHA - US AND ADDITIONAL Routine 08/27/2023 2:20 PM EST documented in this encounter Results * MM SCREENING MAMM WITH 3D MESHA - US AND ADDITIONAL (08/27/2023 2:20 PM EST) Anatomical Region Laterality Modality Radiographic Kristi ging us Shaikh aNtalia FELIX IMG XR PROCEDURES Final Result documented in this encounter Visit Diagnoses Not on filedocumented in this encounter Care Teams Spinning Frame Tender Relationship Specialty Start Date End Date Shaikh Fisher MD PCP - General Internal Medicine 07/31/23 12/16/23 Shaikh Fisher MD [address] [place] [address] PCP - Devoted 09/16/23 Shaikh Fisher MD [address] [place] [address] PCP - General Internal Medicine 12/17/23 05/25/24 Navneet Vanegas MD [address] [place] [address] PCP - General Family Medicine 05/26/24 10/05/24 Mc Andrade MD [address] [place] [address] PCP - General Family Medicine 10/06/24 02/22/25 Navneet Vanegas MD [address] [place] [address] PCP - General Family Medicine 02/23/25 Duyen Urbano NP [address] [place] [address] Nurse Practitioner Family Medicine 05/26/24 Evelyn Tariq NP [address] [place] [address] Nurse Practitioner Family Medicine 02/23/25 documented as of this encounter
--- OUTSIDE RECORDS SUMMARY | 2025-03-09 11:06 | XMS_ITS | Encounter Summary ---
Author Organization [facility] tem Address [id number] [address] [place] [address] Care Team Providers Care Pocket Marker Name Role Phone Mc Andrade MD Primary Care Provider [phone] Encounter Details Date Type Department Care Team (Late st Contact Info) Description 07/11/2023 Orders Only [facility] Internal Medicine - Family Medicine [address] [place] [phone] Jamil Yoder, DO [address] [place] [address] Neck pain (Primary Dx); Memory deficit; Vitamin D deficiency; B12 deficiency Social History Tobacco Use Types Packs/Day Years [...] as of this encounter Plan of Treatment Scheduled Orders Name Type Priority Associated Diagnoses Orde r Schedule X-ray spine cervical 3 views or less Imaging Routine Neck pain Expected: 07/11/2023, Expires: 09/14/2025 documented as of this encounter Visit Diagnoses Diagnosis Neck pain- Primary Cervicalgia Memory deficit Memory loss Vitamin D deficiency B12 deficiency documented in this encounter Additional Health Concerns Assessment Noted Time PHQ-9 Depression Total Score: 0 07/11/20 23 11:55 AM EDT documented as of this encounter Care Teams Pocket Marker Relationship Specialty Start Date End Date Mc Andrade MD [address] [place] [address] PCP - General Family Medicine 07/23/24 documented as of this encounter
--- OUTSIDE RECORDS SUMMARY | 2025-03-09 11:06 | XMS_ITS | Encounter Summary ---
Author Organization [facility] Address [address] [place] [address] Care Team Providers Care Director [place] Name Role Phone Jamil Yoder MD Primary Care Provider Shaikh ELVIRA Fisher Primary Care Provider Shaikh ELVIRA Fisher Unavailable [phone] Shaikh ELVIRA Fisher Primary Care Provider Navneet Vanegas MD Primary Care Provider Duyen Urbano POSTMASTER Unavailable Mc Andrade MD Primary Care Provider [phone] Navneet Vanegas MD Primary Care Provider Evelyn Tariq POSTMASTER Unavailable [phone] Encounter Details Date Type Department Care Team (Late st Contact Info) Description 02/10/2023 Abstract [facility] [address] [facility] [address] [place] [address] Lashell Tai MD 112 [facility] [address] [place] [address] Social History Tobacco Use Types Packs/Day Years Used Date Smoking Tobacco: Former Cigarettes Tobacco Cessation:Counseling Given: Not Answered Alcohol Use Standard Drinks/Week Comments Never 0 (1 standard drink = 0.6 oz pur e alcohol) Comments Unknown Sex and Gender Information Value Date Recorded Sex Assigned at Not on file Legal Sex Female 7:12 PM EDT Gender Identity Not on file Sexual Orientation Not on file documented as of this encounter Plan of Treatment Upcoming Encounters Date Type Department Care Team (Late st Contact Info) Description 03/11/2025 11:30 AM EDT Procedure Visit [facility] 112 [facility] 120 [place] [address] Dave Ambrocio, DPTiesha 3006 [facility] 5 [place] [address] 05/31/2025 9:40 AM EDT Office Visit [facility] [address] [place] [address] Evelyn Tariq, AJIT [address] [place] [address] 03/01/2026 10:30 AM EDT [facility] [address] [place] [address] Evelyn Tariq, AJIT [address] [place] [address] documented as of this encounter Visit Diagnoses Not on filedocumented in this encounter Care Teams Director China Relationship Specialty Start Date End Date Jamil Yoder MD PCP - General Internal Medicine 07/01/23 07/30/23 Shaikh Fisher MD PCP - General Internal Medicine 07/31/23 12/16/23 Shaikh Fisher MD [address] [place] [address] PCP - Devoted 09/16/23 Shaikh Fisher MD [address] [place] [address] PCP - General Internal Medicine 12/17/23 05/25/24 Navneet Vanegas MD [address] [place] [address] PCP - General Family Medicine 05/26/24 10/05/24 Mc Andrade MD [address] [place] [address] PCP - General Family Medicine 10/06/24 02/22/25 Navneet Vanegas MD [address] [place] [address] PCP - General Family Medicine 02/23/25 Duyen Urbano NP [address] [place] [address] Nurse Practitioner Family Medicine 05/26/24 Evelyn Tariq NP [address] [place] [address] Nurse Practitioner Family Medicine 02/23/25 documented as of this encounter
--- OUTSIDE RECORDS SUMMARY | 2025-03-09 11:06 | XMS_ITS | Encounter Summary ---
Author Organization [facility] tem Address [id number] [address] [place] [address] Care Team Providers Care Bevel Mill Operator Name Role Phone Mc Andrade MD Primary Care Provider [phone] Encounter Details Date Type Department Care Team (Late st Contact Info) Description 07/11/[address] [facility] Internal Medicine - Family Medicine [address] [place] [address] Terra Vance CMA Social History Tobacco Use [...] Telephone Encounter - Terra Vance CMA - 07/11/2023 2:59 PM EDT Pt came back in and asked if she could get an xr of her neck also due to the popping. documented in this encounter Plan of Treatment Not on file documented as of this encounter Visit Diagnoses Not on filedocumented in this encounter Additional Health Concerns Assessment Noted Time PHQ-9 Depression Total Score: 0 07/11/20 23 11:55 AM EDT documented as of this encounter Care Teams Bevel Mill Operator Relationship Specialty Start Date End Date Mc Andrade MD [address] [place] [address] PCP - General Family Medicine 07/23/24 documented as of this encounter
--- OUTSIDE RECORDS SUMMARY | 2025-03-09 11:06 | XMS_ITS | Encounter Summary ---
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 1 to 4 times per year 08/12/2023 Do you belong to any clubs o r organizations such as sabianism groups, unions, fraternal or athletic groups, or [...] Patient Health Questionnaire-2 Score 0 04/14/2024 [facility] [place] of Occupat ional Health - Occupational Stress [...] place to sleep or slept in a assisted (including now)? No 08/12/2023 Comments Unknown Sex and Gender Information Value Date Recorded Sex Assigned at Not on file Legal Sex Female 7:12 PM EDT Gender Identity Not on file Sexual Orientation Not on file documented as of this encounter Plan of Treatment Upcoming Encounters Date Type Department Care Team ([facility] Contact Info) Description 03/11/2025 11:30 AM EDT Procedure Visit [facility] [address] [facility] [address] [place] [address] Dave Ambrocio DPM 4740 [facility] 5 [place] [address] 05/31/2025 9:40 AM EDT Office Visit [facility] [address] [place] [address] Evelyn Tariq, AJIT [address] [place] [address] 03/01/2026 10:30 AM EDT Office Visit [facility] [address] [place] [address] Evelyn Tariq NP [address] [place] [address] documented as of this encounter Visit Diagnoses Diagnosis 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 (HCC)- Primary Pain due to onychomycosis of toenails of both feet- Primary Venous insufficiency Unspecified venous (peripheral) insufficiency documented in this encounter Additional Health Concerns Assessment Noted Time PHQ-9 Depression Total Score: 0 01/06/20 10:27 AM EDT documented as of this encounter Care Teams Cookie Mixer Helper Relationship Specialty Start Date End Date Shaikh Fisher MD [address] [place] [address] PCP - Devoted 09/16/23 Navneet Vanegas MD [address] [place] [address] PCP - General Family Medicine 05/26/24 10/05/24 Mc Andrade MD [address] [place] [address] PCP - General Family Medicine 10/06/24 02/22/25 Navneet Vanegas MD [address] [place] [address] PCP - General Family Medicine 02/23/25 Duyen Urbano NP [address] [place] [address] Nurse Practitioner Family Medicine 05/26/24 Evelyn Tariq NP [address] [place] [address] Nurse Practitioner Family Medicine 02/23/25 documented as of this encounter
--- OUTSIDE RECORDS SUMMARY | 2025-03-09 11:06 | XMS_ITS | Encounter Summary ---
Author Organization [facility] Address [address] [place] [address] Care Team Providers Care Master Dyer Name Role Phone Shaikh ELVIRA Fisher Unavailable [phone] Navneet Vanegas MD Primary Care Provider Duyen Urbano NP Unavailable Mc Andrade MD Primary Care Provider [phone] Navneet Vanegas MD Primary Care Provider [phone] Evelyn Tariq NP Unavailable [phone] Encounter Details Date Type Department Care Team (Late st Contact Info) Description 06/30/2024 Orders Only [facility] [address] [place] [address] Shaikh Fisher MD [address] [place] [address] Social History Tobacco Use Types Packs/Day Years [...] How often do you attend chur or yazidism services? 1 to 4 times per year 08/12/2023 Do you belong to any clubs o r organizations such as yazidi groups, unions, fraternal or athletic groups, or [...] Recorded Patient Health Questionnaire-2 Score 0 04/14/2024 [facility] of Occupat ional Health - Occupational [...] place to sleep or slept in a [facility] (including now)? No 08/12/2023 Comments Unknown Sex and Gender Information Value Date Recorded Sex Assigned at Not on file Legal Sex Female 7:12 PM EDT Gender Identity Not on file Sexual Orientation Not on file documented as of this encounter Plan of Treatment Upcoming Encounters Date Type Department Care Team ([facility] st Contact Info) Description 03/11/2025 11:30 AM EDT Procedure Visit [facility] 112 [facility] [address] [place] [address] Dave Ambrocio DPM 8696 [facility] [address] [place] [address] 05/31/2025 9:40 AM EDT Office Visit [facility] [address] [place] [address] Evelyn Tariq, AJIT [address] [place] [address] 03/01/2026 10:30 AM EDT Office Visit [facility] [address] [place] [address] Evelyn Tariq, AJIT [address] [place] [address] documented as of this encounter Procedures Procedure Name Priority Date/Time Associated Diagnosis Comments CT HEAD OR BRAIN W/ & W/O CONTRAST Routine 06/29/2024 10:31 AM EDT documented in this encounter Results * CT HEAD OR BRAIN W/ & W/O CONTRAST (06/29/2024 10:31 AM EDT) Anatomical Region Laterality Modality Radiographic Kristi ging Shaikh Natalia FELIX IMG XR PROCEDURES Final Result documented in this encounter Visit Diagnoses Not on filedocumented in this encounter Additional Health Concerns Assessment Noted Time PHQ-9 Depression Total Score: 0 01/06/20 24 10:27 AM EDT documented as of this encounter Care Teams Master Dyer Relationship Specialty Start Date End Date Shaikh Fisher MD [address] [place] [address] PCP - Devoted 09/16/23 Navneet Vanegas MD [address] [place] [address] PCP - General Family Medicine 05/26/24 10/05/24 Mc Andrade MD [address] [place] [address] PCP - General Family Medicine 10/06/24 02/22/25 Navneet Vanegas MD [address] [place] [address] PCP - General Family Medicine 02/23/25 Duyen Urbano NP [address] [place] [address] Nurse Practitioner Family Medicine 05/26/24 Evelyn Tariq NP [address] [place] [address] Nurse Practitioner Family Medicine 02/23/25 documented as of this encounter
--- OUTSIDE RECORDS SUMMARY | 2025-03-09 11:06 | XMS_ITS | Clinical Summary ---
Author Organization [employer] tem Address [id number] [address] [place] [address] Care Team Providers Care Er Tech Name Role Phone Mc Andrade MD Primary Care Provider [phone] Allergies Active Allergy Reactions Criticality Noted Date Comments Adhesive Other (See Comments) Low 04/14/2014 redness Oxycodone-Acetaminophen Itching 06/09/2017 Medications albuterol (PROVENTIL HFA;VENTOLIN HFA) 90 mcg/actuation inhaler Inhale 2 puffs every 6 (six) hours as needed for wheezing. Active cyanocobalamin (vitamin B-12) 1000 MCG tabletIndication s:B12 deficiency Take 1 tablet (1,000 mcg total) by mouth in the morning. 90 tablet 1 07/11/2023 Active Active Problems Problem Noted Date Diagnosed Date B12 deficiency 07/11/2023 Hypertension 05/15/2014 Resolved Problems Problem Noted Date Diagnosed Date Resolved Date Dizziness 06/13/2023 06/13/2023 Immunizations Immunization Administration Dates Next Due Influenza, Injectable, Quadrivalent 09/14/2014 Pneumococcal Polysaccharide 07/16/2008 Zoster Live 09/02/2015 Family History Medical History Relation Name Comments Breast cancer Maternal Aunt 1 Breast cancer Maternal Aunt 2 Breast cancer Maternal Aunt 3 Relation Name Status Comments Maternal Aunt 1 Maternal Aunt 2 Maternal Aunt 3 Social History Tobacco Use Types Packs/Day Years Used Date Smoking Tobacco: Never Smokeless Tobacco: Never Tobacco Cessation:Counseling Given: Not Answered PHQ-2 Answer Date Recorded Total Score 0 [...] Sign Reading Time Taken Comments Blood Pressure 132/84 07/11/2023 11:54 AM EDT Pulse 83 07/11/2023 11:54 AM EDT Temperature 36.7 C (98 F) 07/11/2023 11:54 AM EDT Respiratory Rate 18 07/11/2023 11:54 AM EDT Oxygen Saturation 97% 07/11/2023 11:54 AM EDT Inhaled Oxygen Concentration - - Weight 64.9 kg (143 lb) 07/11/2023 11:54 AM EDT Height 149.9 cm (4' 11 ) 07/11/2023 11:54 AM EDT Body Mass Index 28.88 07/11/2023 11:54 AM EDT Plan of Treatment Health Maintenance Due Date Last Done Comments Medicare Annual Wellness Visit 1950 DTaP,Tdap and Td Vaccines (1 - Tdap) 01/07/1971 Zoster (Shingles) Vaccine (2 of 3) 10/28/2015 09/02/2015 COVID-19 Vaccine (5 - 2023-2 5 season) 2024 07/13/2023, 09/14/2021, 01/02/2021, Additional history exists Adult BMI Screening 07/11/2024 07/11/2023 Depression Screening 07/11/2024 07/11/2023 Fall Risk Screening 07/11/2024 07/11/2023 Tobacco Screening 07/11/2024 07/11/2023 Influenza Vaccine 05/17/2025 07/13/2023, 09/14/2014 Medical Devices Not on file Insurance [employer]AGE Care Teams Er Tech Relationship Specialty Start Date End Date Mc Andrade MD [address] [place] [address] PCP - General Family Medicine 07/23/24
--- OUTSIDE RECORDS SUMMARY | 2025-03-09 11:06 | XMS_ITS | Encounter Summary ---
Author Organization [facility] Address [address] [place] [address] Care Team Providers Care Nutrition Services Worker Name Role Phone Shaikh ELVIRA Fisher Unavailable [phone] Shaikh ELVIRA Fisher Primary Care Provider Navneet Vanegas MD Primary Care Provider Duyen Urbano FLIGHT STEWARD Unavailable Mc Andrade MD Primary Care Provider [phone] Navneet Vanegas MD Primary Care Provider Evelyn Tariq FLIGHT STEWARD Unavailable [phone] Encounter Details Date Type Department Care Team (Late st Contact Info) Description 03/17/2024 Abstract [facility] [address] [place] [address] Shaikh Fisher MD [address] [place] [address] Social History Tobacco Use Types Packs/Day Years [...] How often do you attend chur or scientologist services? 1 to 4 times per year 08/12/2023 Do you belong to any clubs o r organizations such as denominational groups, unions, fraternal or athletic groups, or [...] Date Recorded Patient Health Questionnaire-2 Score 0 01/06/2024 [facility] of Occupat ional Health - [...] place to sleep or slept in a [place] (including now)? No 08/12/2023 Comments Unknown Sex [...] Procedure Visit [facility] 112 [facility] [address] [place] [address] Dave Ambrocio DPM 2367 [facility] [address] [place] [address] 05/31/2025 9:40 AM EDT Office Visit [facility] [address] [place] [address] Evelyn Tariq, AJIT [address] [place] [address] 03/01/2026 10:30 AM EDT [facility] [address] [place] [address] Evelyn Tariq, FLIGHT STEWARD [address] [place] [address] documented as of this encounter Visit Diagnoses Not on filedocumented in this encounter Additional Health Concerns Assessment Noted Time PHQ-9 Depression Total Score: 0 01/06/20 10:27 AM EDT documented as of this encounter Care Teams Nutrition Services Worker Relationship Specialty Start Date End Date Shaikh Fisher MD [address] [place] [address] PCP - Devoted 09/16/23 Shaikh Fisher MD [address] [place] [address] PCP - General Internal Medicine 12/17/23 05/25/24 Navneet Vanegas MD [address] [place] [address] PCP - General Family Medicine 05/26/24 10/05/24 Mc Andrade MD [address] [place] [address] PCP - General Family Medicine 10/06/24 02/22/25 Navneet Vanegas MD [address] [place] [address] PCP - General Family Medicine 02/23/25 Duyen Urbano NP [address] [place] [address] Nurse Practitioner Family Medicine 05/26/24 Evelyn Tariq NP [address] [place] [address] Nurse Practitioner Family Medicine 02/23/25 documented as of this encounter
--- OUTSIDE RECORDS SUMMARY | 2025-03-09 11:06 | XMS_ITS | Clinical Summary ---
Author Organization [facility] Address [address] [place] [address] Care Team Providers Care Remelt Furnace Expediter Name Role Phone Selvin Martinez Primary Care Provider Unavailabl e Allergies Active Allergy Reactions Criticality Noted Date Comments Adhesive Tape Other (See Comments) Low 04/14/2014 redness Oxycodone-Acetaminophen Itching 02/23/2014 Medications sertraline (ZOLOFT) 50 MG tablet Take 50 mg by mouth daily. Active atorvastatin (LIPITOR) 40 MG tablet Take 40 mg by mouth daily. Active albuterol (PROVENTIL HFA;VENTOLIN HFA) 108 (90 BASE) MCG/ACT inhaler Inhale 2 puffs into the lungs every 6 hours as needed. Active albuterol (PROVENTIL) 4 MG tabletIndicatio ns:takes 1/4 of a pill as needed Take 1 mg by mouth as needed. Indications: takes 1/4 of a pill as needed Active HYDROcodone-sarah taminophen (NORCO) 5-325 MG per tablet 1-2 every 4-6 hours only as needed for pain - up to 8 max per day. RX was called into the [facility] at [phone] about 11:45AM /31. Watch for side effects of sedation, nausea, constipation (add a laxative as needed) 100 tablet 0 4 Active Active Problems Problem Noted Date Diagnosed Date Hypotension 05/15/2014 Hypertension 05/15/2014 Dizziness Family History Medical History Relation Name Comments Hypertension Father Heart Defect Mother High Cholesterol Mother Hypertension Mother Stroke Mother Thyroid Disease Mother Relation Name Status Comments Father Mother Social History Tobacco Use Types Packs/Day Years [...] Sign Reading Time Taken Comments Blood Pressure 111/70 05/16/2014 8:00 AM EDT Pulse 81 05/16/2014 8:00 AM EDT Temperature 37.7 C (99.8 F) 05/16/2014 8:00 AM EDT Respiratory Rate 12 05/16/2014 8:00 AM EDT Oxygen Saturation 95% 05/16/2014 8:00 AM EDT Inhaled Oxygen Concentration - - Weight 79.4 kg (175 lb) 05/14/2014 7:47 AM EDT Height 149.9 cm (4' 11 ) 05/14/2014 7:47 AM EDT Body Mass Index 35.35 05/14/2014 7:47 AM EDT Plan of Treatment Not on file Medical Devices Implanted Type Area Laboratory Courier Device Identifier Shelf Expiration Date Model / Serial / Lot Unknown Plate Neck Unknown Bilateral: Toes Description:bilat great toes Unknown Bilateral: Knee Insurance MEDICARE [employer] SENIOR MEDICARE SUPP Advance Directives * Full Code (Latest Code Status on File) Date Activated Date Inactivated Comments 05/14/2014 7:34 PM 05/16/2014 8:41 PM Care Teams Remelt Furnace Expediter Relationship Specialty Start Date End Date Selvin Martinez PCP - General 02/16/14
--- OUTSIDE RECORDS SUMMARY | 2025-03-09 11:06 | XMS_ITS | Encounter Summary ---
Author Organization [facility] Address [address] [place] [address] Care Team Providers Care Analytical Strategist Name Role Phone Shaikh ELVIRA Fisher Primary Care Provider Shaikh ELVIRA Fisher Unavailable [phone] Shaikh ELVIRA Fisher Primary Care Provider Navneet Vanegas MD Primary Care Provider Duyen Urbano FOOTWEAR FACTORY WORKER Unavailable [phone] Mc Andrade MD Primary Care Provider [phone] Navneet Vanegas MD Primary Care Provider Evelyn Tariq FOOTWEAR FACTORY WORKER Unavailable [phone] Encounter Details Date Type Department Care Team (Late st Contact Info) Description 08/27/2023 Clinisync Result Encounter [facility] External Department Unsolicited Shaikh Fisher MD [address] [place] [place] [address] Social History Tobacco Use Types Packs/Day Years [...] How often do you attend chur or mu-ism services? 1 to 4 times per year 08/12/2023 Do you belong to any clubs o r organizations such as pentecostal groups, unions, fraternal or athletic groups, or [...] Recorded Patient Health Questionnaire-2 Score 2 08/12/2023 [facility] - Occupational [...] place to sleep or slept in a usp (including now)? No 08/12/2023 Comments Unknown Sex [...] Procedure Visit [facility] [address] [facility] [address] [place] [address] Dave Ambrocio DPM [address] [facility] [address] [place] [address] 05/31/2025 9:40 AM EDT Office Visit [facility] [address] [place] [address] Evelyn Tariq, FOOTWEAR FACTORY WORKER [address] [place] [phone] 03/01/2026 10:30 AM EDT Office Visit [facility] [address] [place] [address] Evelyn Tariq, FOOTWEAR FACTORY WORKER [address] [place] [phone] documented as of this encounter Procedures Procedure Name Priority Date/Time Associated Diagnosis Comments MM TOMOSYNTHESIS SCREENING BI 08/27/2023 10:12 AM EST documented in this encounter Results * MM TOMOSYNTHESIS SCREENING BI (08/27/2023 10:12 AM EST) Anatomical Region Laterality Modality Other 08/27/2023 10:1 2 AM EST Narrative 08/27/2023 10:13 [place] [address] Mammography Report Signed Patient: KEVON CAMPOS MR#: [id number] : 1950 Acct:[id number] Age/Sex: 73 / F ADM Date: 08/27/23 Loc: MAMMO Attending Dr: Shaikh Natalia Sheffield Ordering Physician: Shaikh Nettie Fisher Results: Date of Service: 08/27/23 Follow Up: Procedure(s): MM tomosynthesis screening BI Accession Number(s): [id number] cc: Shaikh Nettie Fisher Patient Name: KEVON CAMPOS MR#: [id number] : 1950 Exam Date: 08/27/2023 Ordering Doctor: Shaikh Adela Portillo RADIOLOGY REPORT PROCEDURE: MM TOMOSYNTHESIS SCREENING BI COMPARISON: MG MAMM SCREEN 3D JASON CAD, 11/21/2021. MG MAMM LT DIAG FU, 06/28/2017. INDICATIONS: Screening Calculator Name NCI Breast Cancer Risk Assessment Tool 5 Year Breast Cancer Risk 1.40% Lifetime Breast Cancer Risk 3.90% Personal Breast Cancer No Personal Ovarian Cancer No Treatments None Family Cancers None LOCATION: [facility] BREAST COMPOSITION: Heterogeneously dense,which may obscure small masses. FINDINGS: DIAGNOSTIC CATEGORY 2--BENIGN FINDING. NO CHANGE FROM COMPARISON. Stable bilateral nodular parenchymal pattern most significant in right breast. Scattered benign-appearing calcifications are present. Scattered benign-appearing lymph nodes are present. RIGHT BREAST: No significant suspicious finding. LEFT BREAST: No significant suspicious finding. Geographically distributed calcifications in the upper half breast, grossly stable but limiting diagnostic sensitivity RECOMMENDATIONS: ROUTINE MAMMOGRAM AND CLINICAL EVALUATION IN 12 MONTHS. PLEASE NOTE: A NORMAL MAMMOGRAM DOES NOT EXCLUDE THE POSSIBILITY OF BREAST CANCER. A CLINICALLY SUSPICIOUS PALPABLE LUMP SHOULD BE BIOPSIED. Dictated by: Aleksandr Chavira MD on 08/27/2023 at 10:10 Approved by: Aleksandr Chavira MD on 08/27/2023 at 10:11 Dictated By: Aleksandr Chavira M.D. Signed By: 08/27/23 1013 DD/ 1012 TD/TT: Property Damage Claims Adjustor: Procedure Note Radiology, Radiologist, - 08/27/2023 [place] [address] Mammography Report Signed Patient: KEVON CAMPOS AMR#: [id number] : 1950cct:[id number] Age/Sex: 73 / FADM Date: 08/27/23 Loc: MAMMO Attending Dr: Shaikh Natalia Sheffield Ordering Physician: Shaikh Nettie FisherResults: Date of Service: 08/27/23Follow Up: Procedure(s): MM tomosynthesis screening BI Accession Number(s): [id number] cc: Shaikh Nettie Fisher Patient Name: KEVON CAMPOS MR#: [id number] : 1950 Exam Date: 08/27/2023 Ordering Doctor: Shaikh Adela Fisher . RADIOLOGY REPORT PROCEDURE: MM TOMOSYNTHESIS SCREENING BI COMPARISON: MG MAMM SCREEN 3D JASON CAD, 11/21/2021. MG MAMM LT DIAG FU, 06/28/2017. INDICATIONS: Screening Calculator Name NCI Breast Cancer Risk Assessment Tool 5 Year Breast Cancer Risk 1.40% Lifetime Breast Cancer Risk 3.90% Personal Breast Cancer No Personal Ovarian Cancer No Treatments None Family Cancers None LOCATION: [facility] BREAST COMPOSITION: Heterogeneously dense,which may obscure smallmasses. FINDINGS: DIAGNOSTIC CATEGORY 2--BENIGN FINDING. NO CHANGE FROM COMPARISON. Stable bilateral nodular parenchymal pattern most significant in rightbreast. Scattered benign-appearing calcifications are present. Scattered benign-appearing lymph nodes are present. RIGHT BREAST: No significant suspicious finding. LEFT BREAST: No significant suspicious finding. Geographicallydistributed calcifications in the upper half breast, grossly stable but limiting diagnostic sensitivity RECOMMENDATIONS: ROUTINE MAMMOGRAM AND CLINICAL EVALUATION IN 12 MONTHS. PLEASE NOTE: A NORMAL MAMMOGRAM DOES NOT EXCLUDE THE POSSIBILITY OFBREAST CANCER. A CLINICALLY SUSPICIOUS PALPABLE LUMP SHOULD BE BIOPSIED. Dictated by: Aleksandr Chavira MD on 08/27/2023 at 10:10 Approved by: Aleksandr Chavira MD on 08/27/2023 at 10:11 Dictated By: Aleksandr Chavira M.D. Signed By:08/27/23 1013 DD/ 1012 TD/TT: Property Damage Claims Adjustor: Shaikh Natalia [facility] Final Result documented in this encounter Visit Diagnoses Not on filedocumented in this encounter Care Teams Analytical Strategist Relationship Specialty Start Date End Date Shaikh Fisher MD PCP - General Internal Medicine 07/31/23 12/16/23 Shaikh Fisher MD [address] [place] [phone] PCP - Devoted 09/16/23 Shaikh Fisher MD [address] [place] [phone] PCP - General Internal Medicine 12/17/23 05/25/24 Navneet Vanegas MD [address] [place] [phone] PCP - General Family Medicine 05/26/24 10/05/24 Mc Andrade MD [address] [place] [address] PCP - General Family Medicine 10/06/24 02/22/25 Navneet Vanegas MD [address] [place] [address] PCP - General Family Medicine 02/23/25 Duyen Urbano NP [address] [place] [phone] Nurse Practitioner Family Medicine 05/26/24 Evelyn Tariq NP [address] [place] [phone] Nurse Practitioner Family Medicine 02/23/25 documented as of this encounter
--- OUTSIDE RECORDS SUMMARY | 2025-03-09 11:06 | XMS_ITS | Encounter Summary ---
Author Organization [facility] Address [address] [place] [address] Care Team Providers Care Boat Hoist Operator Helper Name Role Phone Shaikh ELVIRA Fisher Primary Care Provider Shaikh ELVIRA Fisher Unavailable [phone] Shaikh ELVIRA Fisher Primary Care Provider Navneet Vanegas MD Primary Care Provider Duyen Urbano ENGINEER BYPRODUCT Unavailable Mc Andrade MD Primary Care Provider [phone] Navneet Vanegas MD Primary Care Provider Evelyn Tariq ENGINEER BYPRODUCT Unavailable [phone] Encounter Details Date Type Department Care Team (Late st Contact Info) Description 09/13/2023 Abstract [facility] [address] [place] [address] Shaikh Fisher MD [address] [place] [phone] Social History Tobacco Use Types Packs/Day Years [...] week 08/12/2023 How often do you attend [facility] or bahai services? 1 to 4 times per year 08/12/2023 Do you belong to any clubs o r organizations such as advent groups, unions, fraternal or athletic groups, or [...] Recorded Patient Health Questionnaire-2 Score 2 08/12/2023 [facility]at ional Health - Occupational Stress [...] place to sleep or slept in a halfway (including now)? No 08/12/2023 Comments Unknown Sex [...] EDT Procedure Visit [facility] [address] [facility] [address] [place] [address] Dave Ambrocio DPM [address] [facility] [address] [place] [address] 05/31/2025 9:40 AM EDT Office Visit [facility] [address] [place] [address] Evelyn Tariq, AJIT [address] [place] [phone] 03/01/2026 10:30 AM EDT Office Visit [facility] [address] [place] [address] Evelyn Tariq, ENGINEER BYPRODUCT [address] [place] [phone] documented as of this encounter Visit Diagnoses Not on filedocumented in this encounter Care Teams Boat Hoist Operator Helper Relationship Specialty Start Date End Date Shaikh Fisher MD PCP - General Internal Medicine 07/31/23 12/16/23 Shaikh Fisher MD [address] [place] [phone] PCP - Devoted 09/16/23 Shaikh Fisher MD [address] [place] [address] PCP - General Internal Medicine 12/17/23 05/25/24 Navneet Vanegas MD [address] [place] [phone] PCP - General Family Medicine 05/26/24 10/05/24 Mc Andrade MD [address] [place] [address] PCP - General Family Medicine 10/06/24 02/22/25 Navneet Vanegas MD [address] [place] [address] PCP - General Family Medicine 02/23/25 Duyen rUbano NP [address] [place] [address] Nurse Practitioner Family Medicine 05/26/24 Evelyn Tariq NP [address] [place] [address] Nurse Practitioner Family Medicine 02/23/25 documented as of this encounter
== END 2025-03-09 11:04 | disposition home or self-care (01) ==
LOC: MAMMO 11:03
PROVIDERS: PCP Nurse Practitioner; Visit Provider Nurse Practitioner
DX: Z12.31 Encounter for screening mammogram for malignant neoplasm of breast (principal)
CPT/HCPCS: 77067

== ENCOUNTER 2025-03-28 14:37 | Emergency (ER) | payer OTHER, SELFPAY ==
--- NOTE | 2025-03-28 | CT_ITS ---
[address] [address] Patient Name: KEVON HASKINS MRN: [id number] date: 1950 Sex: F Assigned Patient Location: ER Current Patient Location: Accession/Order Number: [id number] Exam Date: 03/28/2025 15:59 Report Date: 03/28/2025 16:08 At the request of: JOAO GAN MD Procedure: CT thoracic spine wo con CT cervical spine wo con, CT thoracic spine wo con 03/28/2025 3:44 PM SIGN AND SYMPTOMS: Fall, Left posterior head pain radiating to shoulder TECHNIQUE: Multi detector CT axial slices of the cervical spine and thoracic were obtained without IV contrast. Volumetric acquisition sagittal, coronal, and 3-D reconstructions were performed and reviewed. CT was performed with one or more of the following dose reduction techniques: Automated exposure control, adjustment of the mA and/or kV according to patient size, or use of iterative reconstruction technique. COMPARISON: 09/04/2022 and 08/09/2023 FINDINGS: Cervical spine: There is preservation of the vertebral body heights. There is anterior and intervertebral disc arthroplasty from C4 through C7. No hardware complication or malalignment. There is severe disc height loss at C7-T1 with 5 mm of anterolisthesis of C7 upon T1 secondary to facet hypertrophy. Facet and uncovertebral joint degenerative changes are present at C3-C4. No fractures or dislocations are seen. The alignment of the cervical spine is normal. The craniocervical junction and atlantoaxial joint are within normal limits. The prevertebral soft tissues are within normal limits. The paraspinous soft tissues are within normal limits. The lung apices are unremarkable. Calcified plaque is noted in the carotid bifurcations. Thoracic spine: There is preservation of the vertebral body heights. There is moderate severe disc height loss throughout with anterior osteophyte formation. There is mild facet hypertrophy throughout. No fractures or dislocations are seen. The alignment of the thoracic spine is normal. The paraspinous soft tissues are within normal limits. The visualized lung parenchyma is unremarkable. The visualized upper abdominal viscera is unremarkable. Atherosclerotic changes are noted in the thoracic aorta and coronary arteries. CT/CT thoracic spine wo con IMPRESSION: Cervical spine: No acute cervical spine injury. There is anterior and intervertebral fusion from C4 through C7 without hardware complication. There is severe disc height loss at C7-T1 with 5 mm of anterolisthesis of C7 upon T1 secondary to facet hypertrophy. Thoracic spine: Moderate to severe disc degenerative changes are noted throughout with anterior osteophyte formation and facet hypertrophy. No fracture or subluxation. Impression dictated by: Rajan Chavez M.D. 03/28/2025 4:08 PM Dictation Location: [place] [address] Electronically authenticated by: [id number] Y Date: 03/28/2025 16:08
[2025-03-28 14:40] VITALS: BP 141/78; PULSE 68; TEMP 36.8; O2SAT 96; BMI 32.0
--- OUTSIDE RECORDS SUMMARY | 2025-03-28 14:42 | XMS_ITS | CCD ---
Author Organization [facility] Inform ion [facility] Care Team Providers Care Technical Healthcare Consultant Name Role Phone DR ALEX SOLANO Consulting Unavailable FAWWAD, BONILLA H Attending Unavailable FAWWAD, BONILLA H Primary Care Unavailable FAWWAD, BONILLA H Admitting Unavailable FAWWAD, BONILLA H Consulting Unavailable FAWWAD, BONILLA H Attending Unavailable DR ACRLOS KEMP V Consulting Unavailable FAWWAD, BONILLA H Primary Care Unavailable FAWWAD, BONILLA H Admitting Unavailable FAWWAD, BONILLA H Consulting Unavailable AICHHOLZ, UX UI DESIGNER EVELYN Consulting Unavailable AICHHOLZ, UX UI DESIGNER EVELYN Admitting Unavailable AICHHOLZ, UX UI DESIGNER EVELYN Attending Unavailable FAWWAD, BONILLA H Primary [...] Unavailable DR ALEX SOLANO Consulting Unavailable AICHHOLZ, UX UI DESIGNER EVELYN Consulting Unavailable AICHHOLZ, UX UI DESIGNER EVELYN Admitting Unavailable AICHHOLZ, UX UI DESIGNER EVELYN Attending Unavailable FAWWAD, BONILLA Primary Care Unavailable DR ALEX SOLANO Consulting Unavailable MD Gray Fisherikh Primary Care Provider DO Jorge Ladd Attending Provider [phone] Natalia [facility] Primary Care Unavailable Jorge Ladd Attending Unavailable Jorge Ladd Admitting Unavailable LONI BRITT Attending Unavailable PUMA ROCHA [facility]erring [facility] Primary Care Unavailable LONI BRITT Attending Unavailable PUMA ROCHA Referring [facility] Primary Care Unavailable DOREEN, AISLINN S Referring Unavailable HOY, QI M Primary Care Unavailable DOREEN, AISLINN S Referring Unavailable HOY, QI M Primary Care Unavailable DOREEN, AISLINN S Referring Unavailable HOY, QI M Primary Care Unavailable JORGE LADD Attending Unavailable JORGE LADD Referring Unavailable NATALIA [facility] Primary Care Unavailable Shaikh Fisher MD Unavailable Navneet Vanegas MD Primary Care Provider [phone] Yolie FONG, Dominique Unavailable [phone] Qi Andrade MD Primary Care Provider [phone] Yolie TRUCK BODY BUILDER, Dominique Unavailable Qi Andrade MD Primary Care Provider [phone] Navneet Vanegas MD Primary Care Provider Chandni TRUCK BODY BUILDER, Evelyn Unavailable DOMINIQUE URBANO Attending Unavailabl e EVELYN TARIQ Attending Unavailable SHAIKH FISHER Attending Unavailable DAVE AMBROCIO Attending Unavailable EVELYN TARIQ Attending Unavailable DAVE AMBROCIO Attending Unavailable Allergies Allergy Classification Reported Allergen(s) Allergy Type Date of Onset Reaction(s) Facility (1 source) Acetaminophen / oxyCODONE Drug Allergy 3 [facility] Repository (1 source) Morphine Drug Allergy 3 [facility] Repository (20 sources) Acetaminophen / oxyCODONE; Translations: [OXYCODONE-ACETAM INOPHEN] Drug Allergy 4 Itching [facility] Repository (2 sources) Adhesive agent; Translations: [ADHESIVE] Propensity to adverse reactions to drug (disorder) 4 [facility] Repository (19 sources) Morphine Drug Allergy 3 Itching [facility] Work Phone: (19 sources) Wound Dressing Adhesive Drug Intolerance 4 [facility] Medications Current Medications Medication Drug Class(es) Dates Sig (Normalized) Sig (Original) [id number] 200 actuat albuterol 0.09 mg/actuat metered dose inhaler (20 sources) beta2-Adrenergic Agonist Start: 01-05-2025 End: 04-23-2025 take 2 puff(s) by inhalation every six hours for wheezing albuterol HFA 90 mcg/act inhaler Indications: Mild intermittent asthma with status asthmaticus (HCC) Inhale 2 puffs every 6 (six) hours if needed for wheezing 18 g 03/24/2025 04/23/2025 Active Start: 02-12-2024 End: 01-04-2025 take 2 [...] bedtime. Active atorvastatin 20 mg oral tablet (20 sources) HMG-CoA Reductase Inhibitor Start : 04-14 End: 05-25 take 1 tablet by mouth once daily atorvastatin (Lipitor) 20 MG tablet Indications: Dyslipidemia Take 1 tablet (20 mg) by mouth [...] Problem Date Documented Da te Episodic/Chronic Asthma (20 sources) Mild intermittent asthma; Translations: [Mild intermittent asthma with status asthmaticus] Onset: 3 06-27-2023 Chronic Conditions associated with dizziness or vertigo (20 sources) Meniere's disease, left ear; Translations: [Meniere's [...] [FEVER UNSPECIFIED] Onset: 3 Episodic Mood disorders (19 sources) Depressive disorder; Translations: [Depression] Onset: 3 06-27-2023 Chronic Mycoses (3 sources) Pain in toe; Translations: [Tinea unguium] 12-31-2024 Episodic Nausea and vomiting (4 sources) Nausea with vomiting, unspecified; Translations: [NAUSEA WITH VOMITING UNSPECIFIED] Onset: 3 Episodic Osteoarthritis (20 sources) Unilateral primary osteoarthritis, right hip; Translations: [Arthritis of left acromioclavicular joint] Onset: 2 Chronic Other aftercare (1 source) joint terminal attack controller (current) use of aspirin; Translations: [MAPPER CURRENT USE OF ASPIRIN] Onset: 3 Episodic Other diseases of veins and lymphatics (3 sources) Vascular insufficiency; Translations: [Venous insufficiency (chronic) (peripheral)] 12-31-2024 Episodic Other gastrointestinal disorders (1 source) Diarrhea, unspecified; Translations: [DIARRHEA UNSPECIFIED] Onset: 3 Episodic Other hereditary and degenerative nervous system conditions (20 sources) Mild cognitive impairment, so stated; Translations: [Mild cognitive impairment, so stated] Onset: 3 06-27-2023 Chronic Residual codes; unclassified (10 sources) Colon cancer screening declined; Translations: [Procedure and treatment not carried out because of patient's decision for unspecified reasons] Onset: 5 02-24-2025 Episodic Schizophrenia and other psychotic disorders (13 sources) Delusional disorder; Translations: [Delusional disorders] Onset: 5 11-24-2024 Chronic Spondylosis; intervertebral disc disorders; other back problems (2 sources) Other cervical disc degeneration, high cervical region; Translations: [Other intervertebral disc degeneration, lumbar region] Onset: 2 Chronic Thyroid disorders (20 sources) Hypothyroidism; Translations: [Hypothyroidism, unspecified] Onset: 3 [...] Episodic/Chronic Conditions associated with dizziness or vertigo (20 sources) Dizziness and giddiness; Translations: [Dizziness] Onset: 06-27-2023 06-27-2023 Episodic Heart valve disorders (20 sources) Cardiac murmur, unspecified; Translations: [Heart murmur] Onset: 09-02-2022 06-27-2023 Episodic Mood disorders (19 sources) Mood disorders Onset: 01-06-2024 Resolved: 02-24-2025 01-06-2024 Nonspecific chest pain (4 sources) Chest pain, unspecified; Translations: [CHEST PAIN UNSPECIFIED] Onset: 08-29-2022 Episodic Nutritional deficiencies (20 sources) Cobalamin deficiency; Translations: [Deficiency of other specified B group vitamins] Onset: 07-11-2023 08-12-2023 Episodic Other circulatory disease (19 sources) Low blood pressure; Translations: [Hypotension, unspecified] Onset: 05-15-2014 Resolved: 11-24-2024 06-27-2023 Episodic Other injuries and conditions due to external causes (4 sources) History of falling; Translations: [HISTORY OF FALLING] Onset: 07-12-2022 Episodic Other lower respiratory disease (1 source) Shortness of breath; Translations: [SHORTNESS OF BREATH] Onset: 09-02-2022 Episodic Other non-traumatic joint disorders (19 sources) Pain in left shoulder; Translations: [Pain in joint, shoulder region] Onset: 06-27-2023 06-27-2023 Episodic Other nutritional; endocrine; and metabolic disorders (4 sources) Overweight; Translations: [OVERWEIGHT] Onset: 09-04-2022 Episodic Other screening for suspected conditions (not mental disorders or infectious disease) (20 sources) Patient encounter status; Translations: [Encounter for screening mammogram for malignant neoplasm of breast] Onset: 08-12-2023 08-12-2023 Episodic Residual codes; unclassified (1 source) Family history of ischemic heart disease and other diseases of the circulatory system; Translations: [FAM HX ISCHEMIC HRT DZ OTH DZ CIRC] Onset: 09-02-2022 Episodic Residual codes; unclassified (19 sources) Confusional state; Translations: [Disorientation, unspecified] Onset: 07-31-2023 07-31-2023 Episodic Schizophrenia and other psychotic disorders (8 sources) Brief reactive psychosis; Translations: [Brief psychotic disorder] Onset: 06-30-2024 02-24-2025 Episodic Spondylosis; intervertebral disc disorders; other back problems (1 source) Cervicalgia; Translations: [CERVICALGIA] Onset: 09-12-2022 Episodic Unclassified (8 sources) Onset: 02-24-2025 02-24-2025 Viral infection (18 sources) Disease caused by 2019-nCoV; Translations: [COVID-19] Onset: 10-12-2024 10-12-2024 Episodic Results Test Name Value Interpretation Reference Range Facility MG Breast - bilateral Screen ingon 03-09-2025 [place] [address] Mammography Report Signed Patient: KEVON CAMPOS MR#: [id number] : 1950 Acct:[id number] Age/Sex: 75 / F ADM Date: 03/09/25 Loc: MAMMO Attending Dr: Evelyn Tariq NP Ordering Physician: Evelyn Tariq NP Results: Date of Service: 03/09/25 Follow Up: Procedure(s): MM screening mammo BI Accession Number(s): [id number] cc: Evelyn Tariq NP Patient Name: KEVON CAMPOS MR#: [id number] : 1950 Exam Date: 03/09/2025 Ordering Doctor: NEIDA TARIQ CNP RADIOLOGY REPORT PROCEDURE: MM SCREENING MAMMO BI COMPARISON: MM SCREENING BI, 08/27/2023. MG MAMM SCREEN 3D JASON CAD, 11/21/2021. MG MAMM LT DIAG FU, 06/28/2017. MG MAMM JASON SCRN W CAD DIG, 08/04/2013. INDICATIONS: Screening Calculator Name NCI Breast Cancer Risk Assessment Tool 5 Year Breast Cancer Risk 1.40% Lifetime Breast Cancer Risk 3.50% Personal Breast Cancer No Personal Ovarian Cancer No Treatments None Family Cancers None LOCATION: [facility] BREAST COMPOSITION: The breasts are heterogeneously dense,which may obscure small masses. FINDINGS: RIGHT BREAST: No significant suspicious finding. Benign-appearing calcifications are present. Benign-appearing lymph nodes are present appeared LEFT BREAST: No significant suspicious finding. Benign-appearing calcifications are redemonstrated. There is a biopsy clip in the left breast. Benign-appearing lymph nodes are present. DIAGNOSTIC CATEGORY 2--BENIGN FINDING: RECOMMENDATIONS: ROUTINE MAMMOGRAM AND CLINICAL EVALUATION IN 12 MONTHS. PLEASE NOTE: A NORMAL MAMMOGRAM DOES NOT EXCLUDE THE POSSIBILITY OF BREAST CANCER. A CLINICALLY SUSPICIOUS PALPABLE LUMP SHOULD BE BIOPSIED. Dictated by: Rajan Chavez MD on 03/09/2025 at 13:33 Approved by: Rajan Chavez MD on 03/09/2025 at 13:45 Dictated By: Rajan Chavez M.D. Signed By: 03/09/25 1346 DD/ 1345 TD/TT: Electromechanical Assembler: [facility] Radiology, Radiologist, - 03/09/2025 [facility] [place] [id number] Mammography Report Signed Patient: KEVON CAMPOS MR#: [id number] : 1950 Acct:[id number] Age/Sex: 75 / F ADM Date: 03/09/25 Loc: MAMMO Attending Dr: Evelyn Tariq NP Ordering Physician: Evelyn Tariq NP Results: Date of Service: 03/09/25 Follow Up: Procedure(s): MM screening mammo BI Accession Number(s): [id number] cc: Evelyn Tariq NP Patient Name: KEVON CAMPOS MR#: [id number] : 1950 Exam Date: 03/09/2025 Ordering Doctor: NEIDA TARIQ CNP RADIOLOGY REPORT PROCEDURE: MM SCREENING MAMMO BI COMPARISON: MM SCREENING BI, 08/27/2023. MG MAMM SCREEN 3D JASON CAD, 11/21/2021. MG MAMM LT DIAG FU, 06/28/2017. MG MAMM JASON SCRN W CAD DIG, 08/04/2013. INDICATIONS: Screening Calculator Name NCI Breast Cancer Risk Assessment Tool 5 Year Breast Cancer Risk 1.40% Lifetime Breast Cancer Risk 3.50% Personal Breast Cancer No Personal Ovarian Cancer No Treatments None Family Cancers None LOCATION: [facility] BREAST COMPOSITION: The breasts are heterogeneously dense,which may obscure small masses. FINDINGS: RIGHT BREAST: No significant suspicious finding. Benign-appearing calcifications are present. Benign-appearing lymph nodes are present appeared LEFT BREAST: No significant suspicious finding. Benign-appearing calcifications are redemonstrated. There is a biopsy clip in the left breast. Benign-appearing lymph nodes are present. DIAGNOSTIC CATEGORY 2--BENIGN FINDING: RECOMMENDATIONS: ROUTINE MAMMOGRAM AND CLINICAL EVALUATION IN 12 MONTHS. PLEASE NOTE: A NORMAL MAMMOGRAM DOES NOT EXCLUDE THE POSSIBILITY OF BREAST CANCER. A CLINICALLY SUSPICIOUS PALPABLE LUMP SHOULD BE BIOPSIED. Dictated by: Rajan Chavez MD on 03/09/2025 at 13:33 Approved by: Rajan Chavez MD on 03/09/2025 at 13:45 Dictated By: Rajan Chavez M.D. Signed By: 03/09/25 1346 DD/ 1345 TD/TT: Electromechanical Assembler: [facility] Radiology Study observation (narrative) [facility] MG Breast - bilateral Screen ingOrdered By: Radiologist Radiology on 03-09-2025 [facility] Work Phone: [facility] UA (CLEAN/CATCH) MICROSC OPIC IF INDICATEon 02-25-2025 BILIRUBIN URINE Negative NEGATIVE [facility] BLOOD URINE TRACE-I NEGATIVE [facility] Clarity (U) CLEAR CLEAR [facility] Color (U) LT. YELLOW YELLOW [facility] GLUCOSE URINE UA Negative NEGATIVE mg/dL [facility] Interpretation and review of laboratory results Abnormal [facility] Ketones Ql (U) Negative NEGATIVE mg/dL [facility] Leukocyte esterase Test strip Ql (U) SMALL Abnormal NEGATIVE [facility] NITRITE URINE Negative NEGATIVE [facility] pH (U) 6.0 [pH] 5.0 - 9.[facility] PROTEIN [facility]INE Negative NEG/TRACE mg/dL [facility] SPECIFIC GRAVITY URINE <=1.005 Abnormal 1.005 - 1.025 [facility] URINE MICROSCOPIC INDICATED YES [facility] UROBILINOGEN URINE 0.2 EU/dL 0.2 - 1.0 EU/dL [facility] URINALYSISon 08-08-2024 Amorphous sediment LM Ql (Urine sed) PRESENT Abnormal NONE [facility] Comment on above: Performed By: #### C BCA, HA1C, CMP, 86824-2, THYR, 3051-0 #### [facility] ([id number]) [address], [address] [place] [address] Bilirubin Ql (U) Negative Normal NEG [facility] Comment on above: Performed By: #### C BCA, HA1C, CMP, 55269-0, THYR, 3051-0 #### [facility] ([id number]) [address], [address] [place] [address] BLOOD/HGB Negative Normal NEG [facility] Comment on above: Performed By: #### C BCA, HA1C, CMP, 15406-2, THYR, 3051-0 #### [facility] ([id number]) [address], [address] [place] [address] Color (U) YELLOW Normal YELLOW [facility] Comment on above: Performed By: #### C BCA, HA1C, CMP, 83692-1, THYR, 3051-0 #### [facility] ([id number]) [address], [address] [place] [address] Glucose Ql (U) Negative Normal NEG [facility] Comment on above: Performed By: #### C BCA, HA1C, CMP, 07041-1, THYR, 3051-0 #### [facility] ([id number]) [address], [address] [place] [address] Ketones Ql (U) Trace Abnormal NEG [facility] Comment on above: Performed By: #### C BCA, HA1C, CMP, 65732-0, THYR, 3051-0 #### [facility] ([id number]) [address] [place] [address] Leukocyte esterase Test strip Ql (U) Negative Normal NEG [facility] Comment on above: Performed By: #### C BCA, HA1C, CMP, 68329-5, THYR, 3051-0 #### [facility] ([id number]) [address] [place] [address] Nitrite Ql (U) Negative Normal NEG [facility] Comment on above: Performed By: #### C BCA, HA1C, CMP, 63863-0, THYR, 3051-0 #### [facility] ([id number]) [address] [place] [address] pH (U) 6.0 [pH] Normal 5.0-8.5 [facility] Comment on above: Performed By: #### C BCA, HA1C, CMP, 05579-9, THYR, 3051-0 #### [facility] ([id number]) [address] [place] [address] Protein Ql (U) 30 mg/dL Abnormal NEG [facility] Comment on above: Performed By: #### C BCA, HA1C, CMP, 89417-5, THYR, 3051-0 #### [facility] ([id number]) [address] [place] [address] R.B.CELLS 0 /hpf Normal 0-5 [facility] Comment on above: Performed By: #### C BCA, HA1C, CMP, 85268-4, THYR, 3051-0 #### [facility] ([id number]) [address] [place] [address] Specific gravity (U) [Rel density] 1.020 Normal 1.003-1.035 [facility] Comment on above: Performed By: #### C BCA, HA1C, CMP, 72053-0, THYR, 3051-0 #### [facility] ([id number]) [address] [place] [address] TURBIDITY HAZY Abnormal CLEAR [facility] Comment on above: Performed By: #### C BCA, HA1C, CMP, 77840-2, THYR, 3051-0 #### [facility] ([id number]) [address], [facility] [address] [place] [address] URIC ACID CRYSTALS PRESENT Abnormal NONE [facility] Comment on above: Performed By: #### C BCA, HA1C, CMP, 31266-2, THYR, 305-0 #### [facility] ([id number]) [address], [facility] [address] [place] [address] Urobilinogen Qn (U) 0.2 {Quan'U}/dL Normal <1.1 [facility] Comment on above: Performed By: #### C BCA, HA1C, CMP, 43971-7, THYR, 3051-0 #### [facility] ([id number]) [address] [place] [address] W.B.CELLS 20 /hpf High 0-5 [facility] Comment on above: Performed By: #### C BCA, HA1C, CMP, 79471-7, THYR, 305-0 #### [facility] ([id number]) [address] [place] [address] WBC CASTS 1 /lpf High 0 [facility] Comment on above: Performed By: #### C BCA, HA1C, CMP, 29096-9, THYR, 3051-0 #### [facility] ([id number]) [address] [place] [address] URINE CULTUREon 08-08-2024 Bacteria identified Cx Nom (U) CULTURE RESULTS <10,000 ORGANISMS/ML NORMAL URO GENITAL DELMY Normal [facility] Comment on above: Performed By: #### C BCA, HA1C, CMP, 72032-2, THYR, 3051-0 #### [facility] ([id number]) [address] [place] [address] CBC AND AUTO DIFFon 11-20-20 24 Band form neutrophils/100 WBC (Bld) 38.0 % Normal [facility] Comment on above: Performed By: #### C MP, CBCA #### [facility] ([id number]) [address] [place] [address] Erythrocyte distribution width (RBC) [Ratio] 13.6 % Normal 11.5-15.0 [facility] Comment on above: Performed By: #### C DARINEL, CBCA #### [facility] ([id number]) [address] [place] [address] Hematocrit (Bld) [Volume fraction] 37.6 % Normal 35-47 [facility] Comment on above: Performed By: #### C DARINEL, CBCA #### [facility] ([id number]) [address] [place] [address] Hemoglobin (Bld) [Mass/Vol] 13.2 g/dL Normal 11.7-15.5 [facility] Comment on above: Performed By: #### C MP, CBCA #### [facility] ([id number]) [address] [place] [address] Lymphocytes (Bld) [#/Vol] 0.5 10*3/uL Low 1.0-3.5 [facility] Comment on above: Performed By: #### C MP, CBCA #### [facility] ([id number]) [address] [place] [address] Lymphocytes/100 WBC (Bld) 10.0 % Normal [facility] Comment on above: Performed By: #### C MP, CBCA #### [facility] ([id number]) [address] [place] [address] MCH (RBC) [Entitic mass] 32.8 pg Normal 27-34 [facility] Comment on above: Performed By: #### C MP, CBCA #### [facility] ([id number]) [address] [place] [address] MCHC (RBC) [Mass/Vol] 35.1 g/dL Normal 32-36 [facility] Comment on above: Performed By: #### C MP, CBCA #### [facility] ([id number]) [address] [place] [address] MCV (RBC) [Entitic vol] 94 fL Normal 80-100 [facility] Comment on above: Performed By: #### C MP, CBCA #### [facility] ([id number]) [address] [place] [address] Metamyelocytes/100 WBC (Bld) 2.0 % Normal [facility] Comment on above: Performed By: #### C MP, CBCA #### [facility] ([id number]) [address] [place] [address] Monocytes (Bld) [#/Vol] 0.6 10*3/uL Normal 0-0.9 [facility] Comment on above: Performed By: #### C MP, CBCA #### [facility] ([id number]) [address] [place] [address] Monocytes/100 WBC (Bld) 11.0 % Normal [facility] Comment on above: Performed By: #### C MP, CBCA #### [facility] ([id number]) [address] [place] [address] NEUTROPHIL VACUOLES 1+ Abnormal NONE [facility] Comment on above: Performed By: #### C MP, CBCA #### [facility] ([id number]) [address] [place] [address] Neutrophils (Bld) [#/Vol] 4.1 10*3/uL Normal 1.5-6.6 [facility] Comment on above: Performed By: #### C MP, CBCA #### [facility] ([id number]) [address] [place] [address] Platelet mean volume (Bld) [Entitic vol] 9.8 fL Normal 7-12 [facility] Comment on above: Performed By: #### C MP, CBCA #### [facility] ([id number]) [address] [place] [address] Platelets (Bld) [#/Vol] 170 10*3/uL Normal 150-450 [facility] Comment on above: Performed By: #### C MP, CBCA #### [facility] ([id number]) [address] [place] [address] RBC COUNT 4.01 X10E12/L Normal 3.80-5.20 [facility] Comment on above: Performed By: #### C MP, CBCA #### [facility] ([id number]) [address] [place] [address] SEG NEUTROPHIL 39.0 % Normal [facility] Comment on above: Performed By: #### C MP, CBCA #### [facility] ([id number]) [address] [place] [address] WBC (Bld) [#/Vol] 5.3 10*3/uL Normal 4.0-11.0 [facility] Comment on above: Performed By: #### C MP, CBCA #### [facility] ([id number]) [address] [place] [address] COMPREHENSIVE METABOLIC PANE Abhishek 08-05-2024 Albumin [Mass/Vol] 3.9 g/dL Normal 3.2-5.3 [facility] Comment on above: Performed By: #### C DARINEL CBCA #### [facility] ([id number]) [address] [place] [address] ALP [Catalytic activity/Vol] 61 U/L Normal 39-130 [facility] Comment on above: Performed By: #### C DARINEL CBCA #### [facility] ([id number]) [address] [place] [address] ALT [Catalytic activity/Vol] 23 U/L Normal 0-31 [facility] Comment on above: Performed By: #### C DARINEL CBCA #### [facility] ([id number]) [address] [place] [address] Anion gap [Moles/Vol] 13 mmol/L Normal 5-15 [facility] Comment on above: Performed By: #### C DARINEL CBCA #### [facility] ([id number]) [address] [place] [address] AST [Catalytic activity/Vol] 46 U/L High 0-41 [facility] Comment on above: Performed By: #### C DARINEL CBCA #### [facility] [facility] ([id number]) [address], [address] [place] [address] Bilirubin [Mass/Vol] 1.1 mg/dL Normal 0.3-1.2 [facility] Comment on above: Performed By: #### C DARINEL CBCA #### [facility] ([id number]) [address], [address] [place] [address] Calcium [Mass/Vol] 9.1 mg/dL Normal 8.5-10.5 [facility] Comment on above: Performed By: #### C DARINEL, CBCA #### [facility] ([id number]) [address], [address] [place] [address] Chloride [Moles/Vol] 99 mmol/L Normal 98-109 [facility] Comment on above: Performed By: #### C DARINEL, CBCA #### [facility] ([id number]) [address], [address] [place] [address] CO2 [Moles/Vol] 21 mmol/L Low 22-32 [facility] Comment on above: Performed By: #### C DARINEL, CBCA #### [facility] ([id number]) [address], [address] [place] [address] Creatinine [Mass/Vol] 1.29 mg/dL High 0.40-1.00 [facility] Comment on above: Result Comment: METH OD TRACEABLE TO IDMS STANDARD Performed By: #### C DARINEL CBCA #### [facility] ([id number]) [address], [address] [place] [address] GFR/1.73 sq M.predicted among non-blacks MDRD (S/P/Bld) [Vol rate/Area] 44 mL/min/{1.73_m2} Low >59 [facility] Comment on above: Result Comment: Reported eGFR is based on the CKD-EPI 2020 equation that does not use a race coefficient. Performed By: #### C DARINEL, CBCA #### [facility] ([id number]) [address], [address] [place] [address] Glucose [Mass/Vol] 175 mg/dL High 65-99 [facility] Comment on above: Performed By: #### C DARINEL, CBCA #### [facility] ([id number]) [address], [address] [place] [address] Potassium [Moles/Vol] 3.3 mmol/L Low 3.5-5.0 [facility] Comment on above: Performed By: #### C MP, CBCA #### [facility] ([id number]) [address], [address] [place] [address] Protein [Mass/Vol] 7.0 g/dL Normal 6.0-8.0 [facility] Comment on above: Performed By: #### C MP, CBCA #### [facility] ([id number]) [address], [address] [place] [address] Sodium [Moles/Vol] 133 mmol/L Low 134-146 [facility] Comment on above: Performed By: #### C MP, CBCA #### [facility] ([id number]) [address] [place] [address] Urea nitrogen [Mass/Vol] 20 mg/dL Normal 5-27 [facility] Comment on above: Performed By: #### C MP, CBCA #### [facility] ([id number]) [address], [address] [place] [address] CBC AND AUTO DIFFon 07-23-20 24 ABSOLUTE BASOPHIL 0.0 X10E9/L Normal 0.0-0.2 [facility] Comment on above: Performed By: #### C BCA, HA1C, CMP, 79700-5, THYR, 3051-0 #### [facility] ([id number]) [address], [address] [place] [address] ABSOLUTE NEUTROPHIL 2.4 X10E9/L Normal 1.5-6.6 [facility] Comment on above: Performed By: #### C BCA, HA1C, CMP, 16430-5, THYR, 3051-0 #### [facility] ([id number]) [address], [address] [place] [address] Basophils/100 WBC (Bld) 0.7 % Normal [facility] Comment on above: Performed By: #### C BCA, HA1C, CMP, 43463-7, THYR, 3051-0 #### [facility] ([id number]) [address] [address] [place] [address] Eosinophils (Bld) [#/Vol] 0.1 10*3/uL Normal 0.0-0.4 [facility] Comment on above: Performed By: #### C BCA, HA1C, CMP, 09267-1, THYR, 3051-0 #### [facility] ([id number]) [address], [facility] [address] [place] [address] Eosinophils/100 WBC (Bld) 2.1 % Normal [facility] Comment on above: Performed By: #### C BCA, HA1C, CMP, 06258-8, THYR, 3051-0 #### [facility] ([id number]) [address], [address] [place] [address] Erythrocyte distribution width (RBC) [Ratio] 13.8 % Normal 11.5-15.0 [facility] Comment on above: Performed By: #### C BCA, HA1C, CMP, 05508-6, THYR, 3051-0 #### [facility] ([id number]) [address] [address] [place] [address] Hematocrit (Bld) [Volume fraction] 35.9 % Normal 35-47 [facility] Comment on above: Performed By: #### C BCA, HA1C, CMP, 50687-7, THYR, 3051-0 #### [facility] ([id number]) [address] [address] [place] [address] Hemoglobin (Bld) [Mass/Vol] 12.5 g/dL Normal 11.7-15.5 [facility] Comment on above: Performed By: #### C BCA, HA1C, CMP, 35521-6, THYR, 3051-0 #### [facility] ([id number]) [address], [address] [place] [address] Lymphocytes (Bld) [#/Vol] 1.6 10*3/uL Normal 1.0-3.5 [facility] Comment on above: Performed By: #### C BCA, HA1C, CMP, 89572-8, THYR, 3051-0 #### [facility] ([id number]) [address], [facility] [address] [place] [address] Lymphocytes/100 WBC (Bld) 34.8 % Normal [facility] Comment on above: Performed By: #### C BCA, HA1C, CMP, 65510-3, THYR, 305-0 #### [facility] ([id number]) [address], [address] [place] [address] MCH (RBC) [Entitic mass] 33.2 pg Normal 27-34 [facility] Comment on above: Performed By: #### C BCA, HA1C, CMP, 34075-4, THYR, 305-0 #### [facility] ([id number]) [address] [address] [place] [address] MCHC (RBC) [Mass/Vol] 34.8 g/dL Normal 32-36 [facility] Comment on above: Performed By: #### C BCA, HA1C, CMP, 61184-2, THYR, 3051-0 #### [facility] ([id number]) [address], [address] [place] [address] MCV (RBC) [Entitic vol] 95 fL Normal 80-100 [facility] Comment on above: Performed By: #### C BCA, HA1C, CMP, 82081-5, THYR, 3051-0 #### [facility] ([id number]) [address], [address] [place] [address] Monocytes (Bld) [#/Vol] 0.4 10*3/uL Normal 0-0.9 [facility] Comment on above: Performed By: #### C BCA, HA1C, CMP, 20460-5, THYR, 3051-0 #### [facility] ([id number]) [address], [address] [place] [address] Monocytes/100 WBC (Bld) 9.7 % Normal [facility] Comment on above: Performed By: #### C BCA, HA1C, CMP, 41879-5, THYR, 3051-0 #### [facility] ([id number]) [address], [address] [place] [address] Neutrophils/100 WBC (Bld) 52.7 % Normal [facility] Comment on above: Performed By: #### C BCA, HA1C, CMP, 38715-7, THYR, 3051-0 #### [facility] ([id number]) [address], [address] [place] [address] Platelet mean volume (Bld) [Entitic vol] 8.6 fL Normal 7-12 [facility] Comment on above: Performed By: #### C BCA, HA1C, CMP, 71133-3, THYR, 3051-0 #### [facility] ([id number]) [address], [address] [place] [address] Platelets (Bld) [#/Vol] 251 10*3/uL Normal 150-450 [facility] Comment on above: Performed By: #### C BCA, HA1C, CMP, 18542-0, THYR, 3051-0 #### [facility] ([id number]) [address], [address] [place] [address] RBC COUNT 3.76 X10E12/L Low 3.80-5.20 [facility] Comment on above: Performed By: #### C BCA, HA1C, CMP, 26409-4, THYR, 3051-0 #### [facility] ([id number]) [address], [address] [place] [address] WBC (Bld) [#/Vol] 4.6 10*3/uL Normal 4.0-11.0 [facility] Comment on above: Performed By: #### C BCA, HA1C, CMP, 05606-9, THYR, 3051-0 #### [facility] ([id number]) [address], [address] [place] [address] COMPREHENSIVE METABOLIC PANE Abhishek 07-23-2024 Albumin [Mass/Vol] 4.1 g/dL Normal 3.2-5.3 [facility] Comment on above: Performed By: #### C BCA, HA1C, CMP, 04798-1, THYR, 305-0 #### [facility] ([id number]) [address], [address] [place] [address] ALP [Catalytic activity/Vol] 69 U/L Normal 39-130 [facility] Comment on above: Performed By: #### C BCA, HA1C, CMP, 97326-1, THYR, 3051-0 #### [facility] ([id number]) [address], [address] [place] [address] ALT [Catalytic activity/Vol] 9 U/L Normal 0-31 [facility] Comment on above: Performed By: #### C BCA, HA1C, CMP, 47353-7, THYR, 3051-0 #### [facility] ([id number]) [address], [address] [place] [address] Anion gap [Moles/Vol] 9 mmol/L Normal 5-15 [facility] Comment on above: Performed By: #### C BCA, HA1C, CMP, 75120-8, THYR, 3051-0 #### [facility] ([id number]) [address], [address] [place] [address] AST [Catalytic activity/Vol] 18 U/L Normal 0-41 [facility] Comment on above: Performed By: #### C BCA, HA1C, CMP, 28809-5, THYR, 3051-0 #### [facility] ([id number]) [address], [address] [place] [address] Bilirubin [Mass/Vol] 1.1 mg/dL Normal 0.3-1.2 [facility] Comment on above: Performed By: #### C BCA, HA1C, CMP, 85962-5, THYR, 3051-0 #### [facility] ([id number]) [address], [address] [place] [address] Calcium [Mass/Vol] 9.4 mg/dL Normal 8.5-10.5 [facility] Comment on above: Performed By: #### C BCA, HA1C, CMP, 23609-7, THYR, 3051-0 #### [facility] ([id number]) [address], [address] [place] [address] Chloride [Moles/Vol] 107 mmol/L Normal 98-109 [facility] Comment on above: Performed By: #### C BCA, HA1C, CMP, 83031-8, THYR, 3051-0 #### [facility] ([id number]) [address], [address] [place] [address] CO2 [Moles/Vol] 28 mmol/L Normal 22-32 [facility] Comment on above: Performed By: #### C BCA, HA1C, CMP, 57223-7, THYR, 3051-0 #### [facility] ([id number]) [address], [address] [place] [address] Creatinine [Mass/Vol] 0.85 mg/dL Normal 0.40-1.00 [facility] Comment on above: Result Comment: METH OD TRACEABLE TO IDMS STANDARD Performed By: #### C BCA, HA1C, CMP, 67093-4, THYR, 3051-0 #### [facility] ([id number]) [address], [address] [place] [address] GFR/1.73 sq M.predicted among non-blacks MDRD (S/P/Bld) [Vol rate/Area] 73 mL/min/{1.73_m2} Normal >59 [facility] Comment on above: Result Comment: Reported eGFR is based on the CKD-EPI 2020 equation that does not use a race coefficient. Performed By: #### C BCA, HA1C, CMP, 81483-9, THYR, 3051-0 #### [facility] ([id number]) [address] [address] [place] [address] Glucose [Mass/Vol] 90 mg/dL Normal 65-99 [facility] Comment on above: Performed By: #### C BCA, HA1C, CMP, 49819-1, THYR, 3051-0 #### [facility] ([id number]) [address] [address] [place] [address] Potassium [Moles/Vol] 4.0 mmol/L Normal 3.5-5.0 [facility] Comment on above: Performed By: #### C BCA, HA1C, CMP, 64531-8, THYR, 3051-0 #### [facility] ([id number]) [address] [address] [place] [address] Protein [Mass/Vol] 6.8 g/dL Normal 6.0-8.0 [facility] Comment on above: Performed By: #### C BCA, HA1C, CMP, 35414-1, THYR, 3051-0 #### [facility] ([id number]) [address] [address] [place] [address] Sodium [Moles/Vol] 144 mmol/L Normal 134-146 [facility] Comment on above: Performed By: #### C BCA, HA1C, CMP, 66078-1, THYR, 3051-0 #### [facility] ([id number]) [address], [address] [place] [address] Urea nitrogen [Mass/Vol] 19 mg/dL Normal 5-27 [facility] Comment on above: Performed By: #### C BCA, HA1C, CMP, 55028-9, THYR, 3051-0 #### [facility] ([id number]) [address] [place] [address] FREE T3on 07-23-2024 Free T3 [Mass/Vol] 2.66 pg/mL Normal 2.50-3.90 [facility] Comment on above: Performed By: #### C BCA, HA1C, CMP, 76387-8, THYR, 305-0 #### [facility] ([id number]) [address] [place] [address] HGB A1C (GLYCO-HGB)on 2023 Glucose [Mass/Vol] 108 mg/dL Normal [facility] Comment on above: Performed By: #### C BCA, HA1C, CMP, 08992-4, THYR, 305-0 #### [facility] ([id number]) [address], [address] [place] [address] HbA1c (Bld) [Mass fraction] 5.4 % Normal 4.4-5.6 [facility] Comment on above: Result Comment: NOTE ADA Guidelines Result HgbA1c Normal : less than 5.7 % Prediabetes : 5.7 % to 6.4 % Diabetes : > 6.4 % Use with caution in patients with abnormal hemoglobin variants as the half-life of red blood cells and in vivo glycation rates are affected. Performed By: #### C BCA, HA1C, CMP, 78577-4, THYR, 3051-0 #### [facility] ([id number]) [address] [place] [address] Insulin Qnon 07-23-2024 INSULIN 7.91 uIU/mL Normal 1.00-23.00 [facility] Comment on above: Result Comment: Ref. range is for FASTING NON-DIABETIC POPULATION. Performed By: #### 2 0448-7 #### [facility] ([id number]) [address] [place] [address] Lipid 1996 panelon Cholesterol [Mass/Vol] 222 mg/dL High 150-200 [facility] Comment on above: Performed By: #### C BCA, HA1C, CMP, 39190-9, THYR, 3051-0 #### [facility] ([id number]) [address] [place] [address] Cholesterol in HDL [Mass/Vol] 67 mg/dL Normal >39 [facility] Comment on above: Result Comment: HDL <40 mg/dL - High Risk HDL > or = 40mg/dL- Desirable HDL >60 mg/dL - Negative Risk Performed By: #### C BCA, HA1C, CMP, 27972-7, THYR, 3051-0 #### [facility] ([id number]) [address] [place] [address] Cholesterol in LDL [Mass/Vol] 138 mg/dL High <130 [facility] Comment on above: Result Comment: LDL <100 mg/dL - Desirable LDL >160 mg/dL - High Risk Performed By: #### C BCA, HA1C, CMP, 04341-0, THYR, 3051-0 #### [facility] ([id number]) [address] [place] [address] Cholesterol in VLDL [Mass/Vol] 17 mg/dL Normal 0-30 [facility] Comment on above: Performed By: #### C BCA, HA1C, CMP, 72938-7, THYR, 3051-0 #### [facility] ([id number]) [address] [address] [place] [address] CHOLESTEROL:HDL 3.3 Normal 1.0-5.0 [facility] Comment on above: Performed By: #### C BCA, HA1C, CMP, 31880-7, THYR, 3051-0 #### [facility] ([id number]) [address] [address] Triglyceride [Mass/Vol] 86 mg/dL Normal 27-150 [facility] Comment on above: Performed By: #### C BCA, HA1C, CMP, 90880-7, THYR, 3051-0 #### [facility] ([id number]) [address] [address] THYROID PROFILEon 07-23-2024 Free T4 [Mass/Vol] 0.72 ng/dL Normal 0.61-1.60 [facility] Comment on above: Performed By: #### C BCA, HA1C, CMP, 27441-5, THYR, 3051-0 #### [facility] ([id number]) [address] [address] TSH 1.71 uIU/mL Normal 0.49-4.67 [facility] Comment on above: Performed By: #### C BCA, HA1C, CMP, 65066-0, THYR, 3051-0 #### [facility] ([id number]) [address] [address] MR BRAIN WO CONTon 4 MR BRAIN [...] Haskins MD on 09/26/2023 7:49 PM Normal [facility] Folate [Mass/volume] in Seru m or PlasmaOrdered By: Jorge Ladd on 09-03-2023 Folate [Mass/Vol] 15.2 ng/mL >5.9 [facility] Comment on above: Folate reference ran ge: >5.9 ng/mlThe WHO technical consultation on folate and vitamin r23ybseandlhzvh has determined that folate concentrations lessthan 4 ng/ml are considered deficient. Thyrotropin [Units/volume] i n Serum or PlasmaOrdered By: Jorge Ladd on 09-03-2023 TSH Qn 1.89 m[IU]/L Normal 0.45-5.33 [facility] Comment on above: Result Comment: PERF ORMED BY: [place] [address] PATHOLOGIST [employer] LISSA SORIANO M.D. Performed By: #### T SH3, [id number] #### [facility] [address] [place] [address] Vit. B12/Folate Profileon Folate 15.2 ng/mL Normal >5.9 [facility] Comment on above: Result Comment: Mel te reference range: >5.9 ng/ml The WHO technical consultation on folate and vitamin b12 deficiencies has determined that folate concentrations less than 4 ng/ml are considered deficient. Performed By: #### T SH3, [id number] #### [facility] [address] [place] [address] Vitamin B12 ser/plasOrdered By: Jorge Ladd on 09-03-2023 Cobalamin (Vitamin B12) [Mass/Vol] 711 pg/mL Normal 180-914 [facility] Comment on above: Performed By: #### T SH3, [id number] #### [facility] [address] CBC AUTO DIFFon 12-20-2022 BASO # 0.0 103/ul Normal 0.0-0.1 Comment on above: Performed By: #### C BC ####[facility] [address] [place] [address]Dr. Veena Hernández Basophils/100 WBC (Bld) 0.1 % Critically low 0.2-2.0 Comment on above: Performed By: #### C BC ####[facility] [address] [place], [place] [address]Dr. Veena Hernnádez EO # 0.1 103/ul Normal 0.0-0.7 Comment on above: Performed By: #### C BC ####[facility] [address] [place], [place] [address]Dr. Veena Hernández Eosinophils/100 WBC (Bld) 1.2 % Normal 0.9-7.0 [facility] Comment on above: Performed By: #### C BC ####[facility] [address] [place], [place] [address]Dr. Veena Hernández Erythrocyte distribution width (RBC) [Ratio] 13.2 % Normal 11.0-15.0 Comment on above: Performed By: #### C BC ####[facility] [address] [place], [place] [address]Dr. Veena Hernández Hematocrit (Bld) [Volume fraction] 38.4 % Normal 36.0-48.0 [facility] Comment on above: Performed By: #### C BC ####[facility] [address] [place], [place] [address]Dr. Veena Hernández Hemoglobin (Bld) [Mass/Vol] 12.6 g/dL Normal 12.0-16.0 [facility] Comment on above: Performed By: #### C BC ####[facility] [address] [place], [place] [address]DrLindsey Collazoha Edgar IG # 0.02 10e3/ul Normal 0.00-0.03 [facility] Comment on above: Performed By: #### C BC ####[facility] [address] [place] [address]DrLindsey Collazoha Edgar IG % 0.3 % Normal 0.0-0.5 Comment on above: Performed By: #### C BC ####[facility] [address] [place] [address]DrLindsey Hernández LYMPH # 0.3 103/ul Critically low 1.2-3.8 [facility] Comment on above: Performed By: #### C BC ####[facility] [address] [place], [place] [address]DrLindsey Hernández Lymphocytes/100 WBC (Bld) 4.1 % Critically low 20.5-60.0 [facility] Comment on above: Performed By: #### C BC ####[facility] [address] [place], [place] [address]DrLindsey Hernández MANUAL DIFF REQ NO Normal [facility] Comment on above: Performed By: #### C BC ####[facility] [address] [place], [place] [address]DrLindsey Hernández MCH (RBC) [Entitic mass] 31.4 pg Normal 26.7-34.0 [facility] Comment on above: Performed By: #### C BC ####[facility] [address] [place], [place] [address]DrLindsey Hernández MCHC (RBC) [Mass/Vol] 32.8 g/dL Normal 29.9-35.2 [facility] Comment on above: Performed By: #### C BC ####[facility] [address] [place], [place] [address]DrLindsey Hernández MCV (RBC) [Entitic vol] 95.8 fL Normal 81.0-99.0 [facility] Comment on above: Performed By: #### C BC ####[facility] [address] [place], [place] [address]DrLindsey Hernández MONO # 0.3 103/ul Normal 0.3-0.8 [facility] Comment on above: Performed By: #### C BC ####[facility] [address] [place] [address]Dr. Veena Hernández Monocytes/100 WBC (Bld) 3.8 % Normal 1.7-12.0 [facility] Comment on above: Performed By: #### C BC ####[facility] [address] [place] [address]Dr. Veena Hernández NEUT # 7.1 103/ul Critically high 1.4-6.5 [facility] Comment on above: Performed By: #### C BC ####[facility] [address] [place], [place] [address]Dr. Veena Hernández Neutrophils/100 WBC (Bld) 90.5 % Critically high 43.0-75.0 [facility] Comment on above: Performed By: #### C BC ####[facility] [address] [place], [place] [address]Dr. Veena Hernández Platelet mean volume (Bld) [Entitic vol] 9.8 fL Normal 9.5-13.5 [facility] Comment on above: Performed By: #### C BC ####[facility] [address] [place] [address]Dr. Veena Hernández PLT 231 103/ul Normal 150-450 [facility] Comment on above: Performed By: #### C BC ####[facility] [address] [place] [address]Dr. Veena Hernández RBC 4.01 106/ul Critically low 4.20-5.40 [facility] Comment on above: Performed By: #### C BC ####[facility] [address] [place] [address]Dr. Veena Hernández WBC 7.8 103/ul Normal 4.0-11.0 [facility] Comment on above: Performed By: #### C BC ####[facility] [address] [place], [place] [address]DrLindsey Veena Hernández Covid-19 PCR (CVDTBH)on SARS-CoV-2 (COVID-19) RNA ROGER+probe Ql (Unsp spec) Not detected Normal NOT DETECTED [facility] Comment on above: Result Comment: This test is not yet approved or cleared by the [place] FDA. When there are no FDA-approved or cleared tests available, and other criteria are met, FDA can make tests available under an emergency access mechanism called an Emergency Use Authorization (EUA). The EUA for this test is supported by the Superintendent [place] of Health and Human Service's (HHS's) declaration [...] with SARS-CoV-2. Performed By: #### C VDTBH ####[facility] [id number] [place], [place] [address]Dr. Valeha Hernández INFLUENZA A AND B AGon 12-20 INFLUANE SEE BELOW Normal [facility] Comment on above: Result Comment: Nega tive for Flu A protein angiten. Infection due to Flu A cannot be ruled out. Flu A angiten in the sample may be below the detection limit of the test. Performed By: #### I NFLUAB ####[facility] [id number] [place] [id number]. Valeha Hernández INFLUBNEGH SEE BELOW Normal [facility] Comment on above: Result Comment: Nega tive for Flu B protein antigen. Infection due to Flu B cannot be ruled out. Flu B antigen in the sample may be below the detection limit of the test. Performed By: #### I NFLUAB ####[facility] [id number] [place], [place] [address]Dr. Veena Hernández INFLUENZA A AG Negative Normal NEGATIVE SEE COMMENT [facility] Comment on above: Performed By: #### I NFLUAB ####[facility] [id number] [address]Dr. Veena Hernández INFLUENZA B AG Negative Normal NEGATIVE SEE COMMENT Comment on above: Performed By: #### I NFLUAB ####[facility] [id number] [place] [address]Dr. Veena Hernández LACTATE/LACTIC ACIDon 2022 Lactate [Moles/Vol] 0.7 mmol/L Normal 0.4-2.0 [facility] Comment on above: Performed By: #### L ACT ####[facility] [address] [place] [address]Dr. Veena Hernández LIPASEon 12-20-2022 Lipase [Catalytic activity/Vol] 309.0 U/L Normal 73.0-393.0 Comment on above: Performed By: #### L IPA HSTROPN, CMP ####[facility] [address] [place] [address]Dr. Veena Hernández PROF 14(COMP METB)on 023 Albumin [Mass/Vol] 3.7 g/dL Normal 3.4-5.0 [facility] Comment on above: Performed By: #### L IPA HSTROPN, CMP ####[facility] [address] [place] [address]Dr. Veena Hernández Albumin/Globulin [Mass ratio] 1.2 {ratio} Normal Comment on above: Performed By: #### L IPA, HSTROPN, CMP ####[facility] [address] [place] [address]Dr. Veena Hernández ALP [Catalytic activity/Vol] 85 U/L Normal 46-116 [facility] Comment on above: Performed By: #### L IPA HSTROPN, CMP ####[facility] [address] [place] [address]Dr. Veena Hernández ALT [Catalytic activity/Vol] 15 U/L Normal 14-59 [facility] Comment on above: Performed By: #### L IPA HSTROPN, CMP ####[facility] [address] [place] [address]Dr. Veena Hernández Anion gap [Moles/Vol] 11.2 mmol/L Normal [facility] Comment on above: Performed By: #### L IPA, HSTROPN, CMP ####[facility] [address] [place] [address]Dr. Veena Hernández AST [Catalytic activity/Vol] 15 U/L Normal 15-37 Comment on above: Performed By: #### L IPA, HSTROPN, CMP ####[facility] [address] [place], [place] [address]Dr. Veena Hernández Bilirubin [Mass/Vol] 0.9 mg/dL Normal 0.2-1.0 Comment on above: Performed By: #### L IPA, HSTROPN, CMP ####[facility] [address] [place], [place] [address]Dr. Veena Hernández Calcium [Mass/Vol] 8.7 mg/dL Normal 8.5-10.1 [facility] Comment on above: Performed By: #### L IPA, HSTROPN, CMP ####[facility] [address] [place], [place] [address]Dr. Veena Hernández Chloride [Moles/Vol] 104 mmol/L Normal 98-107 Comment on above: Performed By: #### L IPA, HSTROPN, CMP ####[facility] [address] [place] [address]Dr. Veena Hernández CO2 [Moles/Vol] 27.8 mmol/L Normal 21.0-32.0 The [facility] Comment on above: Performed By: #### L IPA, HSTROPN, CMP ####[facility] [address] [place], [place] [address]Dr. Veena Hernández Creatinine [Mass/Vol] 0.77 mg/dL Normal 0.55-1.02 Comment on above: Performed By: #### L IPA, HSTROPN, CMP ####[facility] [address] [place] [id number]. Veena Hernández EGFR-AF MALDIVIAN >60 Normal >=60 [facility] Comment on above: Performed By: #### L IPA, HSTROPN, CMP ####[facility] [address] [place] [address]Dr. Veena Hernández EGFR-NON AF MALDIVIAN >60 Normal >=60 [facility] Comment on above: Performed By: #### L IPA, HSTROPN, CMP ####[facility] [address] [place] [address]Dr. Veena Hernández Globulin (S) [Mass/Vol] 3.2 g/dL Normal Comment on above: Performed By: #### L IPA, HSTROPN, CMP ####[facility] [address] [place] [address]Dr. Veena Hernández Glucose [Mass/Vol] 121 mg/dL Critically high 74-106 [facility] Comment on above: Performed By: #### L IPA, HSTROPN, CMP ####[facility] [address] [place] [address]Dr. Veena Hernández Potassium [Moles/Vol] 4.0 mmol/L Normal 3.5-5.1 [facility] Comment on above: Performed By: #### L IPA, HSTROPN, CMP ####[facility] [address] [place] [address]Dr. Veena Hernández Protein [Mass/Vol] 6.9 g/dL Normal 6.4-8.[address] [facility] Comment on above: Performed By: #### L IPA, HSTROPN, CMP ####[facility] [address] [place] [address]Dr. Veena Hernández Sodium [Moles/Vol] 139 mmol/L Normal 136-145 [facility] Comment on above: Performed By: #### L IPA, HSTROPN, CMP ####[facility] [address] [place] [address]Dr. Veena Hernández Urea nitrogen [Mass/Vol] 19.0 mg/dL Critically high 7.0-18.0 Comment on above: Performed By: #### L IPA, HSTROPN, CMP ####[facility] [address] [place] [address]Dr. Veena Hernández Urea nitrogen/Creatinine [Mass ratio] 24.7 mg/mg Normal [facility] Comment on above: Performed By: #### L IPA, HSTROPN, CMP ####[facility] [address] [place] [id number]. Veena Hernández SYMPTOMATIC COVID-19 ANTIGEN on 12-20-2022 EUA Statement SEE BELOW Normal [facility] Comment on above: Result Comment: This [...] revoked sooner. Performed By: #### C VDAGS ####[facility] [address] [place] [id number]. Veena Hernández SARS-CoV-2 (COVID-19) RNA ROGER+probe Ql (Unsp spec) Negative Normal NEGATIVE Comment on above: Performed By: #### C VDAGS ####[facility] [address] [place] [address]Dr. Veena Hernández TROPONIN, HIGH SENSITIVITYon 12-20-2022 HSTROP <4.0 Normal 4.0-51.3 Comment on above: Result Comment: CUT- OFF POINTS HAVE BEEN ESTABLISHED BASED ON THE FOURTH UNIVERSAL DEFINITIONS OF MYOCARDIAL INFARCTION. THE UPPER REFERENCE LIMIT (URL) OF TROPONIN, DEFINED THE 99TH PERCENTILE OF cTnI DISTRIBUTION IN A REFERENCE POPULATION, HAS BEEN CONFIRMED THE DECISION THRESHOLD FOR [place] DIAGNOSIS. Performed By: #### L IPA, HSTROPN, CMP ####[facility] [address] [place], [place] [address]QmLindsey Hernández XR CSPINE 2_3 VIEWSon 2021 XR CSPINE 2_3 VIEWS EXAMINATION: XR CSPINE 2_3 VIEWS HISTORY: Neck pain ; chronic [...] by: ALEX SOLANO Date: 2022-09-05 17:06 Normal ECHOCARDIO M/2D COMPLETEon 1 10-30-2021 ECHOCARDIO M/2D COMPLETE Patient: KEVON CAMPOS Exam Date: 08/29/2022 : 1950 Gender:F Ordering : NEIDA EVELYNMitzi HERNANDEZVONCarlos [facility] Admission #: [id number] Family : Order #: [id number] CLICK HERE TO VIEW EXAM ECHOCARDIOGRAM REPORT [...] Haney M.D. on 08/30/2022 at 12:57 Normal NM STRESS/REST MULTIon 08-29 NM STRESS/REST MULTI Patient: KEVON CAMPOS Exam Date: 08/29/2022 : 1950 Gender:F Ordering : NEIDA EVELYNMitzi TARIQ [facility] Admission #: [id number] Family : Order #: [id number] CLICK HERE TO VIEW EXAM RADIOLOGY REPORT PROCEDURE: RADIONUCLIDE IMAGING STRESS/REST MULTI COMPARISON: None. INDICATIONS: Chest pain TECHNIQUE: Exam Description: Stress/Rest one day protocol gated SPECT Rest Imagin.6 mCi Tc-99m Cardiolite IV on 08/29/2022 Stress Imaging 30.6 mCi Tc-99m Cardiolite IV on 08/29/2022 Exercise Protocol: Dvaid Heart Rate (bpm): Rest: 78 Max: 144 [...] M.D. on 08/29/2022 at 15:58 Normal [facility] BNPon 08-01-2022 Natriuretic peptide B (Bld) [Mass/Vol] 41.0 pg/mL Normal <=900.0 Comment on above: Performed By: #### C K, CKMB, REINALDO, CMP, BNP, HSTROPN #### [facility] [address] [place], [place] [address] Dr. Veena Hernández CBC AUTO DIFFon 08-01-2022 BASO # 0.0 103/ul Normal 0.0-0.1 Comment on above: Performed By: #### C BC ####[facility] [address] [place] [address]Dr. Veena Hernández Basophils/100 WBC (Bld) 0.8 % Normal 0.2-2.0 Comment on above: Performed By: #### C BC ####[facility] [address]cl[address] [place] [address]Dr. Veena Hernández EO # 0.1 103/ul Normal 0.0-0.7 [facility] Comment on above: Performed By: #### C BC ####[facility] [address] [place] [address]Dr. Veena Hernández Eosinophils/100 WBC (Bld) 1.3 % Normal 0.9-7.0 Comment on above: Performed By: #### C BC ####[facility] [address]ceuxc[address] [place] [address]Dr. Veena Hernández Erythrocyte distribution width (RBC) [Ratio] 13.3 % Normal 11.0-15.0 [facility] Comment on above: Performed By: #### C BC ####[facility] [address] [place] [address]Dr. Veena Hernández Hematocrit (Bld) [Volume fraction] 39.3 % Normal 36.0-48.0 Comment on above: Performed By: #### C BC ####[facility] [address] [place], [place] [address]DrLindsey Hernández Hemoglobin (Bld) [Mass/Vol] 12.9 g/dL Normal 12.0-16.0 Comment on above: Performed By: #### C BC ####[facility] [address]km[address] [place] [address]DrLindsey Hernández IG # 0.00 10e3/ul Normal 0.00-0.03 Comment on above: Performed By: #### C BC ####[facility] [address]xzblngt[address] [place] [address]DrLindsey Hernández IG % 0.0 % Normal 0.0-0.5 Comment on above: Performed By: #### C BC ####[facility] [address] [place], [place] [address]DrLindsey Hernández LYMPH # 1.8 103/ul Normal 1.2-3.8 Comment on above: Performed By: #### C BC ####[facility] [address]ne[address] [place] [address]DrLindsey Hernández Lymphocytes/100 WBC (Bld) 34.3 % Normal 20.5-60.0 Comment on above: Performed By: #### C BC ####[facility] [address] [place] [address]DrLindsey Hernández MANUAL DIFF REQ NO Normal [facility] Comment on above: Performed By: #### C BC ####[facility] [address] [place] [address]DrLindsey Hernández MCH (RBC) [Entitic mass] 31.1 pg Normal 26.7-34.0 Comment on above: Performed By: #### C BC ####[facility] [address] [place] [id number] Hernández MCHC (RBC) [Mass/Vol] 32.8 g/dL Normal 29.9-35.2 [facility] Comment on above: Performed By: #### C BC ####[facility] [address]megccnz[address] [place] [id number] Hernández MCV (RBC) [Entitic vol] 94.7 fL Normal 81.0-99.0 Comment on above: Performed By: #### C BC ####[facility] [address]vaet[address] [place] [address]Dr. Veena Hernández MONO # 0.3 103/ul Normal 0.3-0.8 [facility] Comment on above: Performed By: #### C BC ####[facility] Eryhctahzd[address] [place] [address]Dr. Veena Hernández Monocytes/100 WBC (Bld) 6.1 % Normal 1.7-12.0 [facility] Comment on above: Performed By: #### C BC ####[facility] [address]reb[address] [place] [address]Dr. Veena Hernández NEUT # 3.0 103/ul Normal 1.4-6.5 [facility] Comment on above: Performed By: #### C BC ####[facility] [address] [place], [place] [address]Dr. Veena Hernández Neutrophils/100 WBC (Bld) 57.5 % Normal 43.0-75.0 [facility] Comment on above: Performed By: #### C BC ####[facility] [address] [place], [place] [address]Dr. Veena Hernández Platelet mean volume (Bld) [Entitic vol] 9.8 fL Normal 9.5-13.5 [facility] Comment on above: Performed By: #### C BC ####[facility] [address] [place], [place] [address]Dr. Veena Hernández PLT 227 103/ul Normal 150-450 [facility] Comment on above: Performed By: #### C BC ####[facility] [address] [place], [place] [address]Dr. Veena Hernández RBC 4.15 106/ul Critically low 4.20-5.40 The [facility] Comment on above: Performed By: #### C BC ####[facility] [address]dtqc[address] [place] [address]Dr. Valeha Edgar WBC 5.3 103/ul Normal 4.0-11.0 [facility] Comment on above: Performed By: #### C BC ####[facility] [address] [place] [id number]. Veena Hernández CKMBon 08-01-2022 CK.MB [Mass/Vol] 0.90 ng/mL Normal <=3.60 The [facility] Comment on above: Performed By: #### C K, CKMB, REINALDO, CMP, BNP, HSTROPN #### [facility] [address] [place] [address] [address] Veena Hernández CPKon 08-01-2022 CK [Catalytic activity/Vol] 66 U/L Normal 26-192 Comment on above: Performed By: #### C K, CKMB, REINALDO, CMP, BNP, HSTROPN #### [facility] [address] [place] [address] [address] Veena Hernández MYOGLOBINon 08-01-2022 REINALDO 38 ng/mL Normal 9-82 Comment on above: Performed By: #### C K, CKMB, REINALDO, CMP, BNP, HSTROPN ####[facility] [address]ugbr[address] [place] [address]Dr. Veena Hernández PROF 14(COMP METB)on 022 Albumin [Mass/Vol] 4.0 g/dL Normal 3.4-5.0 [facility] Comment on above: Performed By: #### C K, CKMB, REINALDO, CMP, BNP, HSTROPN #### [facility] [address] [place] [address] [address] Veena Hernández Albumin/Globulin [Mass ratio] 1.3 {ratio} Normal Comment on above: Performed By: #### C K, CKMB, REINALDO, CMP, BNP, HSTROPN #### [facility] [address] [place] [address] [address] Veena Hernández ALP [Catalytic activity/Vol] 69 U/L Normal 46-116 Comment on above: Performed By: #### C K, CKMB, REINALDO, CMP, BNP, HSTROPN #### [facility] [address] [place] [address] [address] Veena Hernández ALT [Catalytic activity/Vol] 15 U/L Normal 14-59 Comment on above: Performed By: #### C K, CKMB, REINALDO, CMP, BNP, HSTROPN #### [facility] [address] [place] [address] [address] Veena Hernández Anion gap [Moles/Vol] 7.4 mmol/L Normal Comment on above: Performed By: #### C K, CKMB, REINALDO, CMP, BNP, HSTROPN #### [facility] [address] [place] [address] [address] Veena Hernández AST [Catalytic activity/Vol] 14 U/L Critically low 15-37 Comment on above: Performed By: #### C K, CKMB, REINALDO, CMP, BNP, HSTROPN #### [facility] [address] [place] [address] Dr. Veena Hernández Bilirubin [Mass/Vol] 1.9 mg/dL Critically high 0.2-1.0 Comment on above: Performed By: #### C K, CKMB, REINALDO, CMP, BNP, HSTROPN #### [facility] [address] [place] [address] [address] Veena Hernández Calcium [Mass/Vol] 9.4 mg/dL Normal 8.5-10.1 [facility] Comment on above: Performed By: #### C K, CKMB, REINALDO, CMP, BNP, HSTROPN #### [facility] [address] [place] [address] Dr. Veena Hernández Chloride [Moles/Vol] 106 mmol/L Normal 98-107 Comment on above: Performed By: #### C K, CKMB, REINALDO, CMP, BNP, HSTROPN #### [facility] [address] [place] [address] Dr. Veena Hernández CO2 [Moles/Vol] 32.3 mmol/L Critically high 21.0-32.0 Comment on above: Performed By: #### C K, CKMB, REINALDO, CMP, BNP, HSTROPN #### [facility] [address] [place] [address] [address] Veena Hernández Creatinine [Mass/Vol] 0.80 mg/dL Normal 0.55-1.02 [facility] Comment on above: Performed By: #### C K, CKMB, REINALDO, CMP, BNP, HSTROPN #### [facility] [address] [place] [address] [address] Veena Hernández EGFR-AF MALDIVIAN >60 Normal >=60 [facility] Comment on above: Performed By: #### C K, CKMB, REINALDO, CMP, BNP, HSTROPN #### [facility] [address] [place] [address] Dr. Veena Hernández EGFR-NON AF MALDIVIAN >60 Normal >=60 Comment on above: Performed By: #### C K, CKMB, REINALDO, CMP, BNP, HSTROPN #### [facility] [address] [place] [address] Dr. Veena Hernández Globulin (S) [Mass/Vol] 3.2 g/dL Normal Comment on above: Performed By: #### C K, CKMB, REINALDO, CMP, BNP, HSTROPN #### [facility] [address] [place] [address] Dr. Veena Hernández Glucose [Mass/Vol] 98 mg/dL Normal 74-[address] [facility] Comment on above: Performed By: #### C K, CKMB, REINALDO, CMP, BNP, HSTROPN #### [facility] [address] [place] [address] Dr. Veena Hernández Potassium [Moles/Vol] 3.7 mmol/L Normal 3.5-5.1 [facility] Comment on above: Performed By: #### C K, CKMB, REINALDO, CMP, BNP, HSTROPN #### [facility] [address] [place] [address] Dr. Veena Hernández Protein [Mass/Vol] 7.2 g/dL Normal 6.4-8.[address] [facility] Comment on above: Performed By: #### C K, CKMB, REINALDO, CMP, BNP, HSTROPN #### [facility] [address] [place] [address] [address] Veena Hernández Sodium [Moles/Vol] 142 mmol/L Normal 136-[address] [facility] Comment on above: Performed By: #### C K, CKMB, REINALDO, CMP, BNP, HSTROPN #### [facility] [address] [place] [address] [address] Veena Hernández Urea nitrogen [Mass/Vol] 11.0 mg/dL Normal 7.0-18.0 Comment on above: Performed By: #### C K, CKMB, REINALDO, CMP, BNP, HSTROPN #### [facility] [address] [place] [address] [address] Veena Hernández Urea nitrogen/Creatinine [Mass ratio] 13.8 mg/mg Normal Comment on above: Performed By: #### C K, CKMB, REINALDO, CMP, BNP, HSTROPN #### [facility] [address] [place] [address] [address] Veena Hernández TROPONIN, HIGH SENSITIVITYon 08-01-2022 HSTROP 5.0 pg/mL Normal 4.0-51.3 Comment on above: Result Comment: CUT- OFF POINTS HAVE BEEN ESTABLISHED BASED ON THE FOURTH UNIVERSAL DEFINITIONS OF MYOCARDIAL INFARCTION. THE UPPER REFERENCE LIMIT (URL) OF TROPONIN, DEFINED THE 99TH PERCENTILE OF cTnI DISTRIBUTION IN A REFERENCE POPULATION, HAS BEEN CONFIRMED THE DECISION THRESHOLD FOR TN DIAGNOSIS. Performed By: #### C K, CKMB, REINALDO, CMP, BNP, HSTROPN #### [facility] [address] [place] [address] [address] Veena Hernández XR CHEST 2 Von [...] by: ALEX SOLANO Date: 2022-08-01 10:19 Normal XR LSPINE 2_3 VIEWSon 2021 XR LSPINE 2_3 VIEWS EXAMINATION: XR LSPINE 2_3 VIEWS HISTORY: Unspecified fall COMPARISON: No relevant comparison available. FINDINGS: BONES: No acute fracture or spondylolisthesis. Mild spondylosis. Moderate to severe facet osteoarthropathy DISC SPACES: Moderate to severe multilevel disc space narrowing. Interbody spacers L3-4 and L4-L5 PARASPINOUS: Negative. No paraspinous abnormality is seen. OTHER: Negative. IMPRESSION: Degenerative changes Electronically authenticated by: CARLOS KEMP Date: 2022-07-12 19:26 Normal XR HIP RT INJon 04-03-2022 XR HIP [...] resolution of patient's pain. Electronically authenticated by: ALEX SOLANO Date: 2022-04-03 09:18 Normal Vital Signs Date Time Vital Sign Value Performing Clinician Fady curtis 03-11-2025 11:18-0400 Body height 154.9 cm Dave Ambrocio DPM Work Phone: [facility] 03-11-2025 11:18-0400 Body mass index (BMI) [Ratio] 30.8 kg/m2 Daveandreas Ambrocio DPM Work Phone: [facility] 03-11-2025 11:18-0400 Body weight 73.94 kg Dave Cristóbal DPM Work Phone: [facility] 03-11-2025 11:18-0400 Respiratory rate 18 /min Dave Cristóbal DPM Work Phone: [facility] 02-24-2025 09:39-0400 Body mass index (BMI) [Ratio] 30.91 kg/m2 Evelynmitzi Tariq [employer] Work Phone: [facility] 02-24-2025 09:39-0400 Body temperature 98.6 [degF] Evelyn Loreez [employer] Work Phone: [facility] 02-24-2025 09:39-0400 Body weight 74.21 kg Evelyn Loreez [employer] Work Phone: [facility] 02-24-2025 09:39-0400 Diastolic blood pressure 88 mm[Hg] Evelyn Loreez [employer] Work Phone: [facility] 02-24-2025 09:39-0400 Heart rate 78 /min Evelyn Toshiahholz [employer] Work Phone: [facility] 02-24-2025 09:39-0400 Respiratory rate 18 /min Evelyn Aichholz [employer] Work Phone: [facility] 02-24-2025 09:39-0400 SaO2% (BldA) [Mass fraction] 97 % Evelyn Loreez [employer] Work Phone: [facility] 02-24-2025 09:39-0400 Systolic blood pressure 138 mm[Hg] vEelyn Tariq [employer] Work Phone: [facility] 12-31-2024 11:53-0400 Body height 154.9 cm Dave Ambrocio DPM Work Phone: [facility] 12-31-2024 11:53-0400 Body mass index (BMI) [Ratio] 27.4 kg/m2 Dave Ambrocio DPM Work Phone: [facility] 12-31-2024 11:53-0400 Body weight 65.77 kg Dave Ambrocio DPM Work Phone: [facility] 12-31-2024 11:53-0400 Respiratory rate 18 /min Dave Ambrocio DPM Work Phone: [facility] 10-12-2024 09:52-0500 Body height 154.9 cm Dominique Urbano [employer] Work Phone: [facility] 10-12-2024 09:52-0500 Body mass index (BMI) [Ratio] 27.21 kg/m2 Dominique Urbano [employer] Work Phone: [facility] 10-12-2024 09:52-0500 Body temperature 97.2 [degF] Dominique Urbano [employer] Work Phone: [facility] 10-12-2024 09:52-0500 Body weight 65.32 kg Dominique Urbano [employer] Work Phone: [facility] 10-12-2024 09:52-0500 Diastolic blood pressure 74 mm[Hg] Dominique Urbano [employer] Work Phone: [facility] 10-12-2024 09:52-0500 Heart rate 80 /min Dominique Urbano [employer] Work Phone: [facility] 10-12-2024 09:52-0500 Respiratory rate 16 /min Dominique Urbano [employer] Work Phone: [facility] 10-12-2024 09:52-0500 SaO2% (BldA) [Mass fraction] 98 % Dominique Urbano [employer] Work Phone: [facility] 10-12-2024 09:52-0500 Systolic blood pressure 132 mm[Hg] Dominique Yolie [employer] Work Phone: [facility] Healthcare Encounters Encounter Date Encounter Type Care Provider Facility Start: 03-24-2025 End: 03-24-2025 Refill Evelyn Tariq [employer] Work Phone: [facility] Comment on above: Mild intermittent as thma with status asthmaticus (HCC) Start: 03-11-2025 End: 03-11-2025 Bamboo flowsheet Dave Ambrocio DPM Work Phone: [facility] Start: 03-11-2025 End: 03-11-2025 Bamboo flowsheet Dave Ambrocio DPM Work Phone: [facility] Start: 03-11-2025 End: 03-11-2025 Patient encounter procedure Dave Ambrocio DPM Work Phone: [facility] Comment on above: Pain due to onychomy cosis of toenails of both feet (Primary Dx); Venous insufficiency Start: 03-11-2025 End: 03-11-2025 ambulatory DAVE AMBROCIO Not Available Start: 03-09-2025 End: 03-09-2025 Clinisync Result Encounter Evelyn Tariq [employer] Work Phone: [facility] Department Unsolicited Start: 03-09-2025 End: 03-09-2025 Clinisync Result Encounter Evelyn Tariq [employer] Work Phone: [facility] Unsolicited Start: 02-25-2025 End: 02-25-2025 Clinisync Result Encounter Evelyn Tariq [employer] Work Phone: [facility] External Department Unsolicited Start: 02-25-2025 End: 02-25-2025 Clinisync Result Encounter Evelyn Tariq NP Work Phone: [facility] Unsolicited Start: 02-24-2025 End: 02-24-2025 Patient encounter procedure Evelyn Chandni [employer] Work Phone: [facility] Comment on above: Encounter for subseq uent annual wellness visit (AWV) in Medicare patient (Primary Dx); 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); Primary hypertension (CMS/HCC); B12 deficiency; Hypothyroidism, unspecified type (CMS/HCC); Mixed hyperlipidemia (CMS/HCC); Screening mammogram, encounter for; Colon cancer screening declined; Dyslipidemia (CMS/HCC) Start: 02-24-2025 End: 02-24-2025 Refill Evelyn Tariq [employer] Work Phone: [facility] FM Comment on above: Mild intermittent as thma with status asthmaticus (CMS/HCC) Start: 02-03-2025 End: 02-03-2025 Refill Evelyn Tariq [employer] Work Phone: [facility] Comment on above: Mild intermittent as thma with status asthmaticus (CMS/HCC) Start: 01-04-2025 End: 01-05-2025 Refill Evelyn Tariq [employer] Work Phone: [facility] Comment on above: Primary hypertension (CMS/HCC); Dyslipidemia (CMS/HCC); 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); Mild intermittent asthma with status asthmaticus (CMS/HCC) Start: 12-31-2024 End: 12-31-2024 Bamboo flowsheet Dave [...] feet Start: 11-24-2024 End: 11-24-2024 ambulatory EVELYN TARIQ Not Available Start: 11-05-2024 End: 11-05-2024 Refill Dominique Barnestrick [employer] Work Phone: [facility] Comment on above: 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) Start: 10-12-2024 End: 10-12-2024 Bamboo flowsheet Dominique Urbano [employer]DER Work Phone: [facility] Start: 10-12-2024 End: 10-12-2024 Bamboo flowsheet Dominique Urbano [employer]DER Work Phone: [facility] Start: 10-12-2024 End: 10-12-2024 Office outpatient visit 15 minutes Dominique Barnestrick [employer] Work Phone: [facility] Comment on above: COVID-19 (Primary Dx ); Dyslipidemia (CMS/HCC); Primary hypertension (CMS/HCC) Start: 10-12-2024 End: 10-12-2024 ambulatory DOMINIQUE URBANO Not Available Start: 09-29-2024 End: 09-29-2024 Orders Only Dominique Urbano [employer] Work Phone: [facility] Comment on above: 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) (Primary Dx) Start: 08-08-2024 End: 08-08-2024 ambulatory [facility] Start: 08-05-2024 End: 08-05-2024 ambulatory [facility] Start: 07-23-2024 End: 07-23-2024 ambulatory AISLINN LOGAN [facility] Start: 06-15-2024 End: 06-15-2024 Refmerlyn Urbano NP Work Phone: [facility] Comment on above: Primary hypertension (CMS/HCC) Start: 04-14-2024 End: 04-14-2024 ambulatory SHAIKH NATALIA Not Available Start: 10-16-2023 End: 10-16-2023 ambulatory LONI BRITT [facility] Start: 09-26-2023 End: 09-26-2023 ambulatory JORGE LADD [facility] Start: 09-03-2023 End: 09-03-2023 ambulatory Shaikh Natalia Facility:[facility] Start: 09-03-2023 End: 09-03-2023 ambulatory MD Shaikh Fisher Work Phone: [facility] Work Phone: Start: 09-03-2023 End: 09-03-2023 Patient encounter procedure MD Shaikh Fisher Work Phone: [facility] [place] Work Phone: Start: 12-20-2022 End: 12-20-[address] GEOFFREY Portillo Facility:[facility] Start: 10-16-2022 End: 10-31-2022 ambulatory BONILLA Deon NAVARROD Facility:[facility] Start: 09-16-2022 End: 09-17-2022 ambulatory BONILLA H FAWWAD Facility:[facility] Start: 09-06-2022 End: 09-15-2022 ambulatory SHAIKH Deon FISHER Facility:[facility] Start: 09-04-2022 End: 09-05-[address] ALEX SOLANO Facility:[facility] Start: 08-29-2022 End: 08-30-2022 ambulatory NEIDA TARIQ Facility:[facility] Start: 08-01-2022 End: 08-02-2022 ambulatory UX UI DESIGNER EVELYN TARIQ Facility:[facility] Start: 07-12-2022 End: 07-13-2022 ambulatory SHAIKH Deon FISHER Facility:[facility] Start: 04-03-2022 End: 04-03-[address] MIRELLA GUEVARA Facility:[facility] Procedures Date Procedure Procedure Detail Performing Clinician Start: 03-09-2025 End: 03-09-2025 Screening mammography bi 2-view breast inc cad Evelyn Tariq [employer] Work Phone: Start: 02-25-2025 TBH UA (CLEAN/CATCH) MICROSCOPIC IF INDICATE Evelyn Tariq [employer] Work Phone: Start: 08-27-2023 Mammography Dominique F giselle [employer] Work Phone: Plan of Treatment Date Care Activity Detail Author Start: 03-09-2026 Screening for malign ant neoplasm of breast Mammogram [facility] Start: 03-01-2026 End: 03-01-2026 Patient encounter procedure 03/01/2026 10:30 AM EDT Office Visit [facility] [address] [place] [address] Evelyn Tariq NP [address] [place] [phone] [facility] Start: 02-24-2026 Screening for malign ant neoplasm of colon Colorectal Cancer Screening [facility] Comment on above: Postponed from 01/07 (Patient Refused) Start: 05-31-2025 End: 05-31-2025 Patient encounter procedure 05/31/2025 9:40 AM EDT Office Visit [facility] [address] [place] [address] Evelyn Tariq NP [address] [place] [phone] [facility] Start: 05-20-2025 End: 05-20-2025 Patient encounter procedure 05/20/2025 11:20 AM EDT Procedure Visit [facility] [address] [place] [phone] Dave Ambrocio, [place] [address] [address] [facility] Start: 05-17-2025 Influenza vaccination Influenza Vacc ine (#1) [facility] Start: 03-11-2025 End: 03-11-2025 Patient encounter procedure [facility] Comment on above: Pain due to onychomy cosis of toenails of both feet (Primary Dx); Venous insufficiency Start: 02-24-2025 End: 02-24-2026 CBC W Auto Differential panel - Blood CBC and differential Lab Routine 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) B12 deficiency Hypothyroidism, unspecified type (CMS/HCC) Expected: 02/24/2025 (Approximate), Expires: 02/24/2026 [facility] Work Phone: Comment on above: Expected: 02/24/2025 (Approximate), Expires: 02/24/2026 Start: 02-24-2025 End: 02-24-2026 Cobalamin (Vitamin B12) [Mass/volume] in Serum or Plasma Vitamin B12 Lab Routine 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) B12 deficiency Expected: 02/24/2025 (Approximate), Expires: 02/24/2026 [facility] Comment on above: Expected: 02/24/2025 (Approximate), Expires: 02/24/2026 Start: 02-24-2025 End: 02-24-2026 Comprehensive metabolic 2000 panel - Serum or Plasma Comprehensive metabolic panel Lab Routine Primary hypertension (CMS/HCC) Mixed hyperlipidemia (CMS/HCC) Expected: 02/24/2025 (Approximate), Expires: 02/24/2026 [facility] Comment on above: Expected: 02/24/2025 (Approximate), Expires: 02/24/2026 Start: 02-24-2025 End: 02-24-2026 Lipid 1996 panel - Serum or Plasma Lipid panel Lab Routine Mixed hyperlipidemia (CMS/HCC) Expected: 02/24/2025 (Approximate), Expires: 02/24/2026 [facility] Comment on above: Expected: 02/24/2025 (Approximate), Expires: 02/24/2026 Start: 02-24-2025 End: 04-26-2026 MG Breast - bilateral Screening Bilateral screening mammogram Imaging Routine Screening mammogram, encounter for Expected: 02/24/2025 (Approximate), Expires: 04/26/2026 [facility] Comment on above: Expected: 02/24/2025 (Approximate), Expires: 04/26/2026 Start: 02-24-2025 End: 02-24-2026 Microalbumin/Creatinine panel in random Urine Microalbumin / creatinine, urine ratio Lab Routine Primary hypertension (CMS/HCC) Expected: 02/24/2025 (Approximate), Expires: 02/24/2026 [facility] Comment on above: Expected: 02/24/2025 (Approximate), Expires: 02/24/2026 Start: 02-24-2025 End: 02-24-2026 Thyrotropin [Units/volume] in Serum or Plasma TSH Lab Routine Hypothyroidism, unspecified type (CMS/HCC) Expected: 02/24/2025 (Approximate), Expires: 02/24/2026 [facility] Comment on above: Expected: 02/24/2025 (Approximate), Expires: 02/24/2026 Start: 02-24-2025 End: 02-24-2026 Thyroxine (T4) free [Mass/volume] in Serum or Plasma T4, free Lab Routine Hypothyroidism, unspecified type (CMS/HCC) Expected: 02/24/2025 (Approximate), Expires: 02/24/2026 [facility] Comment on above: Expected: 02/24/2025 (Approximate), Expires: 02/24/2026 Start: 02-24-2025 End: 02-24-2026 Urinalysis complete panel - Urine Urinalysis with reflex microscopic (clean catch) Lab Routine Primary hypertension (CMS/HCC) Expected: 02/24/2025 (Approximate), Expires: 02/24/2026 [facility] Comment on above: Expected: 02/24/2025 (Approximate), Expires: 02/24/2026 Start: 02-24-2025 End: 02-24-2025 Patient encounter procedure 02/24/2025 10:00 AM EDT Office Visit [facility] [address] [place] [address] Evelyn Tariq, AJIT [address] [place] [address] [facility] Start: 01-05-2025 Medicare Annual Wellness (AWV) Medicare Annual Wellness (AWV) [facility] Start: 12-31-2024 End: 12-31-2024 Patient encounter procedure 12/31/2024 11:30 AM EDT Office Visit [facility] [address] [address] [place] [phone] Dave Ambrocio, DP [address] [address] [facility] Start: 11-24-2024 End: 11-24-2024 Patient encounter procedure 11/24/2024 9:20 AM EDT Office Visit [facility] [address] [place] [address] Evelyn Tariq, AJIT [address] [place] [address] [facility] Start: 11-16-2024 End: 11-16-2024 Patient encounter procedure 11/16/2024 10:00 AM EST Office Visit [facility] [address] [place] [address] Dominique Urbano NP [address] [place] [address] [facility] Start: 10-12-2024 End: 10-12-2024 Patient encounter procedure 10/12/2024 10:00 AM EST Office Visit [facility] [address] [place] [address] Dominique Urbano NP [address] [place] [address] Arrived [facility] Comment on above: Arrived Start: 08-27-2024 Screening for malign ant neoplasm of breast Mammogram [facility] Start: 08-17-2024 End: 08-17-2024 Patient encounter procedure 08/17/2024 10:30 AM EST Office Visit [facility] [address] [place] [address] Dominique Urbano NP [address] [place] [address] [facility] Start: 05-17-2024 Influenza vaccination Influenza Vacc ine (#1) [facility] Start: 09-16-2023 Screening for malign ant neoplasm of colon [facility] Start: 07-16-2009 Pneumococcal Vaccine : 65+ Years (2 of 2 - PCV) Pneumococcal Vaccine: 65+ Years (2 of 2 - PCV) [facility] Start: 1950 Screening for malign ant neoplasm of colon [facility] Immunizations Immunization Date Immunization Notes Care Provider Fa cility 12-02-2024 Pneumococcal Conjuga te PCV 20 Evelyn Tariq [employer] Work Phone: [facility] 12-02-2024 tetanus toxoid, redu kirby diphtheria toxoid, and acellular pertussis vaccine, adsorbed Evelyn Chandni [employer] Work Phone: [facility] 12-02-2024 zoster vaccine recombinant Evelyn Chandni [employer] Work Phone: [facility] 07-11-2024 influenza, high dose seasonal, preservative-free Dave Ambrocio DPM Work Phone: [facility] 07-11-2024 SARS-COV-2 (COVID-19 ) vaccine, mRNA, spike protein, LNP, PF, kristi-sucrose, 30 mcg/0.3 mL Dave Ambrocio DPM Work Phone: [facility] 07-11-2024 influenza virus vacc ine, unspecified formulation Evelyn Piñaclaracarlos [employer]DER Work Phone: [facility] 07-13-2023 Influenza, High-dose Seasonal, Quadrivalent, Preservative Free Dave Ambrocio DPM Work Phone: [facility] 07-13-2023 influenza virus vacc ine, unspecified formulation Dominique Keenank [employer]DER Work Phone: [facility] 09-02-2015 zoster vaccine, live Brittan y Urbano [employer] Work Phone: [facility] 09-14-2014 influenza, injectabl e, quadrivalent, contains preservative Dave Ambrocio DPM Work Phone: [facility] 07-16-2008 pneumococcal polysaccharide vaccine, 23 valent Dominique Barnestrick [employer]DER Work Phone: [facility] Payers Date Payer Category Payer Medicare (Managed Care) [employer] [id number] 2023 Unknown [employer] D [employer] [id number] 2023-Present [address] [place] [address] [id number] 2023 Medicare [id number] 2023 Self-pay 1959 Unknown [id number] 1959 Unknown [id number] 1952 Unknown [id number] 2.16.840.1.171504.3.579. 2.593 1952 Unknown [id number] 2.16.840.1.168122.3.579. 2.593 1952 Unknown [id number] 2.16.840.1.889787.3.579. 2.593 1952 Unknown [id number] 2.16.840.1.576509.3.579. 2.593 1952 Unknown [id number] 2.16.840.1.696996.3.579. 2.593 1952 Unknown [id number] 2.16.840.1.249362.3.579. 2.593 1952 Unknown [id number] 2.16.840.1.909482.3.579. 2.593 1952 Unknown [id number] 2.16.840.1.333327.3.579. 2.593 1952 Unknown [id number] 2.16.840.1.810135.3.579. 2.593 1952 Unknown [id number] 2.16.840.1.781949.3.579. 2.1286 1952 Unknown [id number] 2.16.840.1.040988.3.579. 2.128 1952 Unknown [id number] 2.16.840.1.175345.3.579. 2.128 1952 Unknown [id number] 2.16.840.1.543971.3.579. 2.128 1952 Unknown [id number] 2.16.840.1.386949.3.579. 2.128 1952 Unknown [id number] 2.16.840.1.501169.3.579. 2.1285 1952 Unknown [id number] 2.16.840.1.909325.3.579. 2.1259 1952 Unknown [id number] 2.16.840.1.754053.3.579. 2.9 1952 Unknown [id number] 2.16.840.1.111701.3.579. 2.125 1952 Unknown [id number] 2.16.840.1.932202.3.579. 2.9 1952 Unknown [id number] 2.16.840.1.576885.3.579. 2.1258 1952 Unknown [id number] 2.16.840.1.681813.3.579. 2.1259 Medicare Medicare [id number] Unknown [id number] 2..840.1.426460.3.579. 2.531 Social History Date Type Detail Facility Tobacco smoking stat [facility] Unknown if ever smoked [facility] Work Phone: Start: 1950 Sex Assigned At Female F [facility] Start: 01-06-2024 Tobacco smoking stat [facility] Never smoked tobacco [facility] Start: 01-06-2024 Tobacco use and exposure Smoke less tobacco non-user [facility] Start: 04-14-2024 End: 03-11-2025 Alcoholic beverage intake Lifetime non-drinker (finding) [facility] [...] medical care, and heating Not very hard [facility] Do you feel stress - tense, restless, nervous, or anxious, or unable to sleep at night because your mind is troubled all the time - these days [OSQ] Very much [facility] (I/We) worried wheth er (my/our) food would run out before (I/we) got money to buy more. Never true [facility] Start: 1950 Sex assigned at Not on file [facility] NEGATED: Highlighted rowStart: NINF History of tobacco use Passive smoker [facility] Functional Status Date Assessment Result Facility 02-24-2025 Patient Health Quest ionnaire 2 item (PHQ-2) [Reported] [facility] Clinical Notes 11-10-2021 to 03-11-2025 Dave Ambrocio DPM - 03/11/2025 11:30 AM EDAlanis Tariq, [employer] B[employer]ILDER - 02/24/2025 10:00 AM Jj Tariq, [employer]UCK B[employer] BUILDER - 02/24/2025 6:32 AM Jj Tariq, AJIT - 02/24/2025 6:26 AM EDTPatient Instructions Note Date & Type Note Facility 03-11-2025 History of Presen t illness Narrative Patient: Kevon Campos : 1950 PCP: Navneet Vanegas MD SUBJECTIVE This is a 75 y.o. female that presents today with a CC of elongated, thick nails. Pt states nails have been elongated and thick for many years and cause pain with ambulation in shoegear. Pt has tried previous treatment with minimal relief. Pt presents today for nail care and treatment. Pt also has history of venous stasis to b/l lower extremities Allergies: Allergies Allergen Reactions Morphine Itching Other Reaction(s): Hallucinations Oxycodone-Acetaminophen Itching Wound Dressing Adhesive Other Reaction(s): Other (See Comments) redness Past Medical History: Past Medical History: Diagnosis Date Asthma (HCC) Chest pain Chronic depression ; Was poorly controlled and was previously started on bupropion Tolerating it without adverse effects Dyspnea Family history of heart disease Hypertension Hypothyroidism, adult was previously treated with 25 mcg of [...] not see ENT due to Dr Molina mcfp. Mild cognitive impairment with memory loss Mild cognitive impairment. Chronic, gradual. Problems with recent memory. Mild intermittent asthma with status asthmaticus (HCC) patient reports using albuterol inhaler and albuterol tablet 2-3 times in a week. No hospitalization for asthma exacerbation. PFT c/w with mod obstructive disease; positive bronchodilator challenge Patient was asked to stop albuterol tablet last time; but continued to use it. Did not start her Pulmicort inhaler. Moderate persistent asthma (HCC) Patient was seen last appt by Evelyn [...] Outpatient Medications: albuterol HFA 90 mcg/act inhaler, Inhale 2 puffs every 6 (six) hours if needed for wheezing, Disp: 18 g, Rfl: 0 atorvastatin (Lipitor) 20 MG tablet, Take 1 tablet (20 mg) by mouth Daily, Disp: 90 tablet, Rfl: 1 losartan (Cozaar) 50 MG tablet, Take 1 tablet (50 mg) by mouth Daily, Disp: 90 tablet, Rfl: 1 mirtazapine (Remeron) 7.5 MG tablet, Take 1 tablet (7.5 mg) by mouth at bedtime, Disp: 90 tablet, Rfl: 1 risperiDONE (RisperDAL) 0.5 MG tablet, Take 1 tablet (0.5 mg) by mouth in the morning and 1 tablet (0.5 mg) before bedtime., Disp: 180 tablet, Rfl: 1 Social History: Social History Socioeconomic History Marital [...] 0 min Stress: Stress Concern Present (08/12/2023) [employer] [place] [employer] - Occupational Stress Questionnaire Feeling of Stress : Very much Social Connections: Moderately Integrated (08/12/2023) Social Connection and Isolation Panel [NHANES] Frequency of Communication with Friends and Family: More than three times a week Frequency of Social Gatherings with Friends and Family: More than three times a week Attends [employer] Services: 1 to 4 times per year [...] toes and right 1,2,3,4,5 toes ASSESSMENT 1. Pain due to onychomycosis of toenails of both feet 2. Venous insufficiency PLAN Discussed proper foot care with patient today. Debride nails in length and thickness digits 1 through 10 Visit spent with patient education on condition and treatment of condition. Pt to continue with elevation of feet while resting or NWB. Dave Ambrocio DPM documented in this encounter [facility] 02-24-2025 History of Presen t illness Narrative [...] Diagnosis Date Asthma Chest pain Chronic depression ([facility]) ; Was poorly controlled and was previously started on bupropion Tolerating it without adverse effects Dyspnea Family history of heart disease Hypertension ([facility]) Hypothyroidism, adult ([facility]) was previously treated with 25 mcg of [...] not see ENT due to Dr Molina mcfp. Mild cognitive impairment with memory loss Mild cognitive impairment. Chronic, gradual. Problems with recent memory. Mild intermittent asthma with status asthmaticus ([facility]) patient reports using albuterol inhaler and albuterol [...] going well documented in this encounter [facility] 02-24-2025 Instructions Evelyn Tariq NP - 02/24/2025 10:00 AM EDT Mammogram I will fax over to [facility]: they should call you for this [phone] Labs: fasting documented in this encounter [facility] 01-04-2025 Telephone encounter Note Mirtazapine 7.5 mg once at night. I didn't see this one listed. PAUL [facility] 01-04-2025 Miscellaneous Notes Mirtazapine 7.5 mg once at night. I didn't see this one listed. PAUL documented in this encounter [facility] 12-31-2024 History of Presen t illness Narrative [...] Diagnosis Date Asthma Chest pain Chronic depression (CMS/HCC) ; Was poorly controlled and was previously started on bupropion Tolerating it without adverse effects Dyspnea Family history of heart disease Hypertension (CMS/HCC) Hypothyroidism, adult (CMS/HCC) was previously treated with 25 mcg of [...] not see ENT due to Dr Molina mcfp. Mild cognitive impairment with memory loss Mild [...] 0 min Stress: Stress Concern Present (08/12/2023) [employer] [place] [employer] - Occupational Stress Questionnaire Feeling of Stress : Very much Social Connections: Moderately Integrated (08/12/2023) Social Connection and Isolation Panel [NHANES] Frequency of Communication with Friends and Family: More than three times a week Frequency of Social Gatherings with Friends and Family: More than three times a week Attends [employer] Services: 1 to 4 times per year [...] edema. Discussed condition in detail. Recommendation for [id number] compression stockings at this time and may consider prescription stockings in the future. Dave Ambrocio DPM documented in this encounter [facility] 10-12-2024 History of Presen t illness Narrative [...] pain/ear pain/dizziness/N/V/D. documented in this encounter [facility] 10-12-2024 Instructions Dominique Urbano NP - 10/12/2024 [...] EMERGENCY DEPARTMENT. 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 No assessment inform ation available [facility] Work Phone: Evaluation note Diagnosis Primary hypertension [...] disturbance (CMS/HCC)- Primary documented in this encounter [facility] HealthcareEvaluation note* Diagnosis Mild intermittent asthma with [...] Unspecified essential hypertension documented in this encounter [facility] Healthcare[facility] note* Diagnosis Mild intermittent asthma with [...] remission (HCC) (CMS/HCC) Screening mammogram, encounter for Venous insufficiency- Primary Unspecified venous (peripheral) insufficiency Pain due to onychomycosis of toenails of both feet documented in this encounter [facility] HealthcareEvaluation note* Diagnosis Mild intermittent asthma with [...] major depressive disorder, in partial remission (HCC) ([facility]/HCC) Screening mammogram, encounter for Primary hypertension (CMS/HCC) [...] remission (HCC) (CMS/HCC) Screening mammogram, encounter for Encounter for subsequent annual wellness visit (AWV) in Medicare patient- Primary 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) Primary hypertension (CMS/HCC) Unspecified essential hypertension B12 deficiency Hypothyroidism, unspecified type (CMS/HCC) Mixed hyperlipidemia (CMS/HCC) Mixed hyperlipidemia Screening mammogram, encounter for Colon cancer screening declined Dyslipidemia (CMS/HCC) Other and unspecified hyperlipidemia documented in this [...] remission (HCC) (CMS/HCC) Screening mammogram, encounter for Encounter for subsequent [...] Diagnosis Mild intermittent asthma with status asthmaticus (HCC)- Primary Primary hypertension Unspecified essential hypertension MCI (mild cognitive impairment) with memory loss Mild cognitive impairment, so stated Screening mammogram, encounter for Hyperlipidemia, unspecified hyperlipidemia type- Primary Primary hypertension Unspecified essential hypertension Mild intermittent asthma with status asthmaticus (HCC) Hypothyroidism, unspecified type Dyslipidemia Other and unspecified hyperlipidemia 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 (HCC) Dyslipidemia- Primary Other and unspecified hyperlipidemia Encounter for screening for malignant neoplasm of colon 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 (HCC) Mild intermittent asthma with status asthmaticus (HCC) 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 (HCC)- Primary Primary hypertension Unspecified essential hypertension Dyslipidemia Other and unspecified hyperlipidemia COVID-19- Primary Dyslipidemia Other and unspecified hyperlipidemia Primary hypertension Unspecified essential hypertension Primary hypertension- Primary Unspecified essential hypertension 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 (HCC) Dyslipidemia Other and unspecified hyperlipidemia Recurrent major depressive disorder, in partial remission Screening mammogram, encounter for Encounter for subsequent [...] venous (peripheral) insufficiency documented in this encounter [facility] Diagnosis Mild intermittent asthma with status asthmaticus (HCC)- Primary Primary hypertension Unspecified essential hypertension MCI (mild cognitive impairment) with memory loss Mild cognitive impairment, so stated Screening mammogram, encounter for Hyperlipidemia, unspecified hyperlipidemia type- Primary Primary hypertension Unspecified essential hypertension Mild intermittent asthma with status asthmaticus (HCC) Hypothyroidism, unspecified type Dyslipidemia Other and unspecified hyperlipidemia 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 (HCC) Dyslipidemia- Primary Other and unspecified hyperlipidemia Encounter for screening for malignant neoplasm of colon 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 (HCC) Mild intermittent asthma with status asthmaticus (HCC) 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 (HCC)- Primary Primary hypertension Unspecified essential hypertension Dyslipidemia Other and unspecified hyperlipidemia COVID-19- Primary Dyslipidemia Other and unspecified hyperlipidemia Primary hypertension Unspecified essential hypertension Primary hypertension- Primary Unspecified essential hypertension 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 (HCC) Dyslipidemia Other and unspecified hyperlipidemia Recurrent major depressive disorder, in partial remission Screening mammogram, encounter for Encounter for subsequent annual wellness visit (AWV) in Medicare patient- Primary 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 (HCC) Primary hypertension Unspecified essential hypertension B12 deficiency Hypothyroidism, unspecified type Mixed hyperlipidemia Mixed hyperlipidemia Screening mammogram, encounter for Colon cancer screening declined Dyslipidemia Other and unspecified hyperlipidemia Mild intermittent asthma with status asthmaticus (HCC) documented in this encounter [facility] Summary [...] section and content) DATE CREATED AUTHOR 11/11/2021 [facility] dical Specialist DATE CREATED AUTHOR AUTHOR'S ORGANIZ ATION 12/21/2022 [facility] [place] DATE CREATED AUTHOR AUTHOR'S ORGANIZ ATION 09/08/2023 [facility] DATE CREATED AUTHOR AUTHOR'S ORGANIZ ATION 10/20/2023 [facility] DATE CREATED AUTHOR AUTHOR'S ORGANIZ ATION 08/11/2024 [facility] DATE CREATED AUTHOR AUTHOR'S ORGANIZ ATION 03/12/2025 [facility] dical Specialists EPIC Care Teams (unrecognized sec tion and content) Team Status: Active Member Role Status Dates Shaikh Natalia MD Primary Care Provider Active Team Status: Inactive Member Role Status Dates Shaikh Natalia MD Primary Care Provider Active Jorge Ladd DO Attending Provider Active Technical Healthcare Consultant Relationship Specialty Start Date End Date Shaikh Fisher MD [address] [place] [phone] PCP - Devoted 09/16/23 Navneet Vanegas MD [address] [place] [address] PCP - General Family Medicine 05/26/24 Dominique Urbano NP [address] [place] [phone] Nurse Practitioner Family Medicine 05/26/24 Technical Healthcare Consultant Relationship Specialty Start Date End Date Shaikh Fisher MD [address] [place] [phone] PCP - Devoted 09/16/23 Navneet Vanegas MD [address] [place] [phone] PCP - General Family Medicine 05/26/24 Dominique Urbano NP [address] [place] [address] Nurse Practitioner Family Medicine 05/26/24 Technical Healthcare Consultant Relationship Specialty Start Date End Date Shaikh Fisher MD [address] [place] [phone] PCP - Devoted 09/16/23 Qi Andrade MD [address] [place] [address] PCP - General Family Medicine 10/06/24 Dominique Urbano NP [address] [place] [address] Nurse Practitioner Family Medicine 05/26/24 Technical Healthcare Consultant Relationship Specialty Start Date End Date Shaikh Fisher MD [address] [place] [address] PCP - Devoted 09/16/23 Qi Andrade MD [address] [place] [address] PCP - General Family Medicine 10/06/24 Dominique Urbano NP [address] [place] [address] Nurse Practitioner Family Medicine 05/26/24 Technical Healthcare Consultant Relationship Specialty Start Date End Date Shaikh Fisher MD [address] [place] [phone] PCP - Devoted 09/16/23 Qi Andrade MD [address] [place] [address] PCP - General Family Medicine 10/06/24 Dominique Urbano NP [address] [place] [address] Nurse Practitioner Family Medicine 05/26/24 Technical Healthcare Consultant Relationship Specialty Start Date End Date Shaikh Fisher MD [address] [place] [phone] PCP - Devoted 09/16/23 Qi Andrade MD [address] [facility] [place] [address] PCP - General Family Medicine 10/06/24 Dominique Urbano, AJIT [address] [place] [address] Nurse Practitioner Family Medicine 05/26/24 Technical Healthcare Consultant Relationship Specialty Start Date End Date Shaikh Fisher MD [address] [place] [phone] PCP - Devoted 09/16/23 Qi Andrade MD [address] [place] [facility] [address] PCP - General Family Medicine 10/06/24 Dominique Urbano, JAIT [address] [place] [address] Nurse Practitioner Family Medicine 05/26/24 Technical Healthcare Consultant Relationship Specialty Start Date End Date Shaikh Fisher MD [address] [place] [address] PCP - Devoted 09/16/23 Qi Andrade MD [address] [place] [facility] [place] [address] PCP - General Family Medicine 10/06/24 Dominique Urbano, AJIT [address] [place] [phone] Nurse Practitioner Family Medicine 05/26/24 Technical Healthcare Consultant Relationship Specialty Start Date End Date Shaikh Fisher MD [address] [place] [address] PCP - Devoted 09/16/23 Qi Andrade MD [address] [place] [address] PCP - General Family Medicine 10/06/24 Dominique Urbano NP [address] [place] [phone] Nurse Practitioner Family Medicine 05/26/24 Technical Healthcare Consultant Relationship Specialty Start Date End Date Shaikh Fisher MD [address] [place] [phone] PCP - Devoted 09/16/23 Navneet Vanegas MD [address] [place] [phone] PCP - General Family Medicine 02/23/25 Dominique Urbano NP [address] [place] [address] Nurse Practitioner Family Medicine 05/26/24 Evelyn Tariq NP [address] [place] [phone] Nurse Practitioner Family Medicine 02/23/25 Technical Healthcare Consultant Relationship Specialty Start Date End Date Shaikh Fisher MD [address] [place] [address] PCP - Devoted 09/16/23 Navneet Vanegas MD [address] [place] [address] PCP - General Family Medicine 02/23/25 Dominique Urbano NP [address] [place] [address] Nurse Practitioner Family Medicine 05/26/24 Evelyn Tariq NP [address] [place] [address] Nurse Practitioner Family Medicine 02/23/25 Technical Healthcare Consultant Relationship Specialty Start Date End Date Shaikh Fisher MD [address] [place] [address] PCP - Devoted 09/16/23 Navneet Vanegas MD [address] [place] [address] PCP - General Family Medicine 02/23/25 Dominique Urbano NP [address] [place] [phone] Nurse Practitioner Family Medicine 05/26/24 Evelyn Tariq NP [address] [place] [address] Nurse Practitioner Family Medicine 02/23/25 Technical Healthcare Consultant Relationship Specialty Start Date End Date Shaikh Fisher MD [address] [place] [phone] PCP - Devoted 09/16/23 Navneet Vanegas MD [address] [place] [address] PCP - General Family Medicine 02/23/25 Dominique Urbano NP [address] [place] [phone] Nurse Practitioner Family Medicine 05/26/24 Evelyn Tariq NP [address] [place] [phone] Nurse Practitioner Family Medicine 02/23/25 Technical Healthcare Consultant Relationship Specialty Start Date End Date Shaikh Fisher MD [address] [place] [address] PCP - Devoted 09/16/23 Navneet Vaneags MD [address] [place] [address] PCP - General Family Medicine 02/23/25 Dominique Urbano NP [address] [place] [phone] Nurse Practitioner Family Medicine 05/26/24 Evelyn Tariq NP [address] [place] [address] Nurse Practitioner Family Medicine 02/23/25 Goals (unrecognized section and content) Goals may be documented in a n alternate section Reason for Visit (unrecogniz ed section and content) Reason Onset Date Comments Med Refill 06/15/2024 Reason Comments Hospital Follow-up Reason Comments Med Refill Reason Comments Toenail Care Reason Onset Date Comments Med Refill 01/04/2025 Reason Comments Toenail Care Non dm nail care FOR RECORDS PERTAINING TO PATIENTS WHO ARE [...] BE BASED ON THE PRIMARY CLINICAL RECORDS. [facility]. provides no warranty or guarantee of the accuracy or completeness of information in this document.
--- NOTE | 2025-03-28 15:25 | CT_ITS ---
The [address] [address] Patient Name: KEVON HASKINS MRN: [id number] date: 1950 Sex: F Assigned Patient Location: ER Current Patient Location: Accession/Order Number: [id number] Exam Date: 03/28/2025 15:55 Report Date: 03/28/2025 15:58 At the request of: JOAO GAN MD Procedure: CT head/brain wo con CT head/brain wo con 03/28/2025 3:44 PM SIGNS AND SYMPTOMS: Fall hitting head, pain in left posterior head radiating to shoulder TECHNIQUE:Multi-detector CT axial slices of the brain were obtained without IV contrast. CT was performed with one or more of the following dose reduction techniques: Automated exposure control, adjustment of the mA and/or kV according to patient size, or use of iterative reconstruction technique. COMPARISON: 06/29/2024 FINDINGS: There is no shift of the midline structures, acute intracranial bleeding, mass effects, or evidence of acute ischemia. There is mild age-related cortical atrophy. The ventricular system is normal in size. The brainstem and the cerebellum are unremarkable. The visualized intraorbital contents, the visualized paranasal sinuses, and the infratemporal soft tissues show no acute abnormality. The osseous structures in the skull base and the calvarium show no abnormality. CT/CT head/brain wo con IMPRESSION: No acute intracranial pathology. Impression dictated by: Rajan Chavez M.D. 03/28/2025 3:58 PM Dictation Location: [place] [address] Electronically authenticated by: [id number] Y Date: 03/28/2025 15:58
--- NOTE | 2025-03-28 15:25 | CT_ITS ---
[address] [address] Patient Name: KEVON HASKINS MRN: [id number] date: 1950 Sex: F Assigned Patient Location: ER Current Patient Location: Accession/Order Number: [id number] Exam Date: 03/28/2025 15:59 Report Date: 03/28/2025 16:08 At the request of: JOAO GAN MD Procedure: CT thoracic spine wo con CT cervical spine wo con, CT thoracic spine wo con 03/28/2025 3:44 PM SIGN AND SYMPTOMS: Fall, Left posterior head pain radiating to shoulder TECHNIQUE: Multi detector CT axial slices of the cervical spine and thoracic were obtained without IV contrast. Volumetric acquisition sagittal, coronal, and 3-D reconstructions were performed and reviewed. CT was performed with one or more of the following dose reduction techniques: Automated exposure control, adjustment of the mA and/or kV according to patient size, or use of iterative reconstruction technique. COMPARISON: 09/04/2022 and 08/09/2023 FINDINGS: Cervical spine: There is preservation of the vertebral body heights. There is anterior and intervertebral disc arthroplasty from C4 through C7. No hardware complication or malalignment. There is severe disc height loss at C7-T1 with 5 mm of anterolisthesis of C7 upon T1 secondary to facet hypertrophy. Facet and uncovertebral joint degenerative changes are present at C3-C4. No fractures or dislocations are seen. The alignment of the cervical spine is normal. The craniocervical junction and atlantoaxial joint are within normal limits. The prevertebral soft tissues are within normal limits. The paraspinous soft tissues are within normal limits. The lung apices are unremarkable. Calcified plaque is noted in the carotid bifurcations. Thoracic spine: There is preservation of the vertebral body heights. There is moderate severe disc height loss throughout with anterior osteophyte formation. There is mild facet hypertrophy throughout. No fractures or dislocations are seen. The alignment of the thoracic spine is normal. The paraspinous soft tissues are within normal limits. The visualized lung parenchyma is unremarkable. The visualized upper abdominal viscera is unremarkable. Atherosclerotic changes are noted in the thoracic aorta and coronary arteries. CT/CT cervical spine wo con IMPRESSION: Cervical spine: No acute cervical spine injury. There is anterior and intervertebral fusion from C4 through C7 without hardware complication. There is severe disc height loss at C7-T1 with 5 mm of anterolisthesis of C7 upon T1 secondary to facet hypertrophy. Thoracic spine: Moderate to severe disc degenerative changes are noted throughout with anterior osteophyte formation and facet hypertrophy. No fracture or subluxation. Impression dictated by: Rajan Chavez M.D. 03/28/2025 4:08 PM Dictation Location: [place] [address] Electronically authenticated by: [id number] Y Date: 03/28/2025 16:08
--- NOTE | 2025-03-28 15:46 | ED.BACK1 ---
HPI HPI - Back Pain/Injury General Chief Complaint: Back Pain/Injury Stated Complaint: FALL BACK PAIN Time Seen by Provider: 03/28/25 15:25 Source: patient Mode of arrival: walk-in History of Present Illness HPI Narrative: Patient is 75 years old female who coming to the ER after she had a fall when she fell backward while walking her dog and she hit the back of her head , patient denies any loss of consciousness and initially although she mentioned that she had this left shoulder pain, right now the patient is not complaining of any pain in her shoulder Related Data Home Medications ?Medication ?Instructions ?Recorded ?Confirmed atorvastatin 20 mg tablet 20 mg PO DAILY 06/30/24 06/30/24 losartan 50 mg tablet 50 mg PO DAILY 06/30/24 06/30/24 quetiapine 25 mg tablet 25 mg PO BEDTIME 06/30/24 06/30/24 mirtazapine 7.5 mg tablet 7.5 mg PO .every night 10/02/24 10/02/24 risperidone 0.5 mg tablet 0.5 mg PO BID 10/02/24 10/02/24 Previous Rx's ?Medication ?Instructions ?Recorded acetaminophen 650 mg 650 mg PO Q8H PRN fever or pain 10/02/24 tablet,extended release (Tylenol 8 #20 tabs Hour) amoxicillin 875 mg-potassium 1 tab PO Q12H #14 tabs 10/02/24 clavulanate 125 mg tablet Allergies Allergy/AdvReac Type Severity Reaction Status Date / Time No Known Drug Allergies Allergy Verified 07/12/23 18:52 Opioid HPI Opioid Management Most Recent Opioid Data: Last Pain Scale 6 06/30/24, 04:48 Ur Phencyclidine Scrn, (NEGATIVE) Negative 06/29/24, 16:35 Review of Systems ROS Status of ROS 10 or more systems reviewed and unremarkable except as noted in history and below PFSH PFSH Social History Little interest or pleasure in doing things: not at all Feeling down, depressed, or hopeless: not at all Exam Narrative Exam Narrative: Nurses notes and vital signs reviewed and patient is not hypoxic. General: Well-appearing and in no apparent distress. Skin: Warm, dry, no pallor noted. No rash. Head: Normocephalic, atraumatic. Neck: Supple, non-tender. Eye: Pupils are equal, round and EOMI. No scleral icterus. Ears, Nose, Mouth, and Throat: TM are clear, no nasal mucosal hypertrophy. Oral mucosa is moist, no posterior oropharynx erythema, uvula is mid-line Cardiovascular: Regular Rate and Rhythm without murmur, gallop or rub. Respiratory: No accessory muscle use or respiratory distress. Lungs are clear to auscultation, no wheezing, rales or rhonchi Chest Wall: no tenderness Back: No midline lumbar vertebral tenderness. No CVA tenderness, some upper chest wall tenderness in the thoracic area Musculoskeletal: normal ROM, no calf or popliteal tenderness, no lower extremity edema/swelling GI: Abdomen is soft, non-distended. Normal bowel sounds. No masses appreciated. No tenderness to palpation. No rebound, guarding, or rigidity noted. Neurological: A&O x4. No cranial nerve dysfunction observed. No truncal ataxia. Moves all extremities. Sensation intact. Psychiatric: Cooperative and interactive. Normal mood and affect. Constitutional Vital Signs, click to edit/add: Last Vital Signs Temp 98.2 F 03/28/25 14:40 Pulse 68 03/28/25 14:40 Resp 18 03/28/25 14:40 BP 141/78 03/28/25 14:40 Pulse Ox 96 03/28/25 14:40 O2 Del Method Room Air 03/28/25 14:40 Course Vital Signs Vital signs: Vital Signs Temperature 98.2 F 03/28/25 14:40 Pulse Rate 68 03/28/25 14:40 Respiratory Rate 18 03/28/25 14:40 Blood Pressure 141/78 03/28/25 14:40 Pulse Oximetry 96 03/28/25 14:40 Oxygen Delivery Method Room Air 03/28/25 14:40 Temperature 98.2 F 03/28/25 14:40 Pulse Rate 68 03/28/25 14:40 Respiratory Rate 18 03/28/25 14:40 Blood Pressure 141/78 03/28/25 14:40 Pulse Oximetry 96 03/28/25 14:40 Oxygen Delivery Method Room Air 03/28/25 14:40 MDM - Back Pain/Injury MDM Narrative Medical decision making narrative: CT of the head as well as CT of the cervical spine and CT of the thoracic spine showed no acute pathology The patient did not have any pain in the ER He was discharged home to continue supportive care and monitoring symptoms for the fall and head injury The patient is to follow up with primary care physician in next 2-3 days or to return to the emergency department should any of the signs or symptoms worsen or new symptoms develop. The patient agrees with the following Diagnosis and Treatment plan and the patient will be discharged home. Discharge Plan Discharge Chief Complaint: Back Pain/Injury Clinical Impression: Fall Patient Disposition: Home, Self-Care Time of Disposition Decision: 16:57 Condition: Good Prescriptions / Home Meds: No Action losartan 50 mg tablet 50 mg PO DAILY quetiapine 25 mg tablet 25 mg PO BEDTIME atorvastatin 20 mg tablet 20 mg PO DAILY mirtazapine 7.5 mg tablet 7.5 mg PO .every night risperidone 0.5 mg tablet 0.5 mg PO BID amoxicillin-pot clavulanate 875-125 mg tablet 1 tab PO Q12H Qty: 14 0RF acetaminophen [Tylenol 8 Hour] 650 mg tablet extended release 650 mg PO Q8H PRN (Reason: fever or pain) Qty: 20 0RF Print Language: French Instructions: Fall Prevention (ED) Referrals: Evelyn Tariq NP [Primary Care Provider, Family Practice] - 1 week Discharge Date/Time: 03/28/25 17:06
== END 2025-03-28 17:06 | disposition home or self-care (01) ==
PROVIDERS: Emergency Provider Emergency Medicine; PCP Nurse Practitioner
DX: Z04.3 Encounter for examination and observation following other accident (principal)
CPT/HCPCS: 70450; 72125; 72128; 99284

== ENCOUNTER 2025-05-06 21:57 | Emergency (ER) | payer OTHER, SELFPAY ==
[2025-05-06 22:01] VITALS: BP 154/85; PULSE 74; O2SAT 98; BMI 31.2
[2025-05-06 22:03] VITALS: O2SAT 100
[2025-05-06 22:04] VITALS: BP 154/85; O2SAT 98
--- NOTE | 2025-05-06 22:08 | ECG_ITS ---
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
--- OUTSIDE RECORDS SUMMARY | 2025-05-06 22:13 | XMS_ITS | CCD ---
Author Organization [facility] Inform ion [facility] Care Team Providers Care Containers Sales Representative Name Role Phone DR ALEX SOLANO Consulting Unavailable FAWWAD, BONILLA H Attending Unavailable FAWWAD, BONILLA H Primary Care Unavailable FAWWAD, BONILLA H Admitting Unavailable FAWWAD, BONILLA H Consulting Unavailable FAWWAD, BONILLA H Attending Unavailable DR CARLOS KEMP V Consulting Unavailable FAWWAD, BONILLA H Primary Care Unavailable FAWWAD, BONILLA H Admitting Unavailable FAWWAD, BONILLA H Consulting Unavailable AICHHOLZ, JAVA SOFTWARE ENGINEER EVELYN Consulting Unavailable AICHHOLZ, JAVA SOFTWARE ENGINEER EVELYN Admitting Unavailable AICHHOLZ, JAVA SOFTWARE ENGINEER EVELYN Attending Unavailable FAWWAD, BONILLA H Primary [...] Unavailable DR ALEX SOLANO Consulting Unavailable AICHHOLZ, JAVA SOFTWARE ENGINEER EVELYN Consulting Unavailable AICHHOLZ, JAVA SOFTWARE ENGINEER EVELYN Admitting Unavailable AICHHOLZ, JAVA SOFTWARE ENGINEER EVELYN Attending Unavailable FAWWAD, BONILLA Primary Care Unavailable DR ALEX SOLANO Consulting Unavailable MD Gray Fisherikh Primary Care Provider DO Jorge Ladd Attending Provider [phone] Natalia [facility] Primary Care Unavailable Jorge Ladd Attending Unavailable Jorge Ladd Admitting Unavailable LONI BRITT Attending Unavailable PUMA ROCHA [facility]erring [facility] Primary Care Unavailable LONI BRITT Attending Unavailable PUMA ROCHA Referring [facility] Primary Care Unavailable DOREEN, AISLINN S Referring Unavailable HOY, QI M Primary Care Unavailable DOREEN, AISLINN S Referring Unavailable HOY, QI M Primary Care Unavailable DOREEN, AISLINN S Referring Unavailable HOY, QI M Primary Care Unavailable JORGE LADD Attending Unavailable JORGE LADD Referring Unavailable NATALIA [facility] Primary Care Unavailable Shaikh Fisher MD Unavailable Navneet Vanegas MD Primary Care Provider Yolie FONG, Dominique Unavailable Qi Andrade MD Primary Care Provider [phone] Yolie CORRECTIONAL OFFICER, Dominique Unavailable Qi Andrade MD Primary Care Provider [phone] Navneet Vanegas MD Primary Care Provider [phone] Chnadni CORRECTIONAL OFFICER, Evelyn Unavailable DOMINIQUE URBANO Attending Unavailabl e EVELYN TARIQ Attending Unavailable SHAIKH FISHER Attending Unavailable DAVE AMBROCIO Attending Unavailable EVELYN TARIQ Attending Unavailable DAVE AMBROCIO Attending Unavailable Allergies Allergy Classification Reported Allergen(s) Allergy Type Date of Onset Reaction(s) Facility (1 source) Acetaminophen / oxyCODONE Drug Allergy 3 [facility] Repository (1 source) Morphine Drug Allergy 3 [facility] Repository (20 sources) Acetaminophen / oxyCODONE; Translations: [OXYCODONE-ACETAM INOPHEN] Drug Allergy 4 Itching [facility] Repository (2 sources) Adhesive agent; Translations: [ADHESIVE] Propensity to adverse reactions to drug (disorder) 4 [facility] Repository (19 sources) Morphine Drug Allergy 3 Itching [facility] Work Phone: (19 sources) Wound Dressing Adhesive Drug Intolerance 4 [facility] Medications Current Medications Medication Drug Class(es) Dates Sig (Normalized) Sig (Original) [id number] 200 actuat albuterol 0.09 mg/actuat metered dose [...] Onset: 2 Chronic Other aftercare (1 source) 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; Translations: [SHELTER CURRENT USE OF ASPIRIN] Onset: 3 Episodic [...] MG Breast - bilateral Screen ingon 03-09-2025 [place] [address] Mammography Report Signed Patient: KEVON CAMPOS MR#: [id number] : 1950 Acct:[id number] Age/Sex: 75 / F ADM Date: 03/09/25 Loc: MAMMO Attending Dr: Evelyn Tariq NP Ordering Physician: Evelyn Tariq NP Results: Date of Service: 03/09/25 Follow Up: Procedure(s): MM screening mammo BI Accession Number(s): [id number] cc: Evelyn Tariq NP Patient Name: KEVON CAMPOS MR#: [id number] : 1950 Exam Date: 03/09/2025 Ordering Doctor: [...] Treatments None Family Cancers None LOCATION: [facility] BREAST COMPOSITION: The breasts are heterogeneously dense,which [...] Signed By: 03/09/25 1346 DD/ 1345 TD/TT: Resaw Carriage Operator: [facility] Radiology, Radiologist, - 03/09/2025 [facility] [place] [id number] Mammography Report Signed Patient: KEVON CAMPOS MR#: [id number] : 1950 Acct:[id number] Age/Sex: 75 / F ADM Date: 03/09/25 Loc: MAMMO Attending Dr: Evelyn Tariq NP Ordering Physician: Evelyn Tariq NP Results: Date of Service: 03/09/25 Follow Up: Procedure(s): MM screening mammo BI Accession Number(s): [id number] cc: Evelyn Tariq NP Patient Name: KEVON CAMPOS MR#: [id number] : 1950 Exam Date: 03/09/2025 Ordering Doctor: [...] Treatments None Family Cancers None LOCATION: [facility] BREAST COMPOSITION: The breasts are heterogeneously dense,which [...] Signed By: 03/09/25 1346 DD/ 1345 TD/TT: Resaw Carriage Operator: [facility] Radiology Study observation (narrative) [facility] MG Breast - bilateral Screen ingOrdered By: Radiologist Radiology on 03-09-2025 [facility] Work Phone: [facility] UA (CLEAN/CATCH) MICROSC OPIC IF INDICATEon 02-25-2025 BILIRUBIN URINE Negative NEGATIVE [facility] BLOOD URINE TRACE-I NEGATIVE [facility] Clarity (U) CLEAR CLEAR [facility] Color (U) LT. YELLOW YELLOW [facility] GLUCOSE URINE UA Negative NEGATIVE mg/dL [facility] Interpretation and review of laboratory results Abnormal [facility] Ketones Ql (U) Negative NEGATIVE mg/dL [facility] Leukocyte esterase Test strip Ql (U) SMALL Abnormal NEGATIVE [facility] NITRITE URINE Negative NEGATIVE [facility] pH (U) 6.0 [pH] 5.0 - 9.0 [facility] PROTEIN URINE Negative NEG/TRACE mg/dL [facility] SPECIFIC GRAVITY URINE <=1.005 Abnormal 1.005 - 1.025 [facility] URINE MICROSCOPIC INDICATED YES [facility] UROBILINOGEN URINE 0.2 EU/dL 0.2 - 1.0 EU/dL [facility] URINALYSISon 08-08-2024 Amorphous sediment LM Ql (Urine sed) PRESENT Abnormal NONE [facility] Comment on above: Performed By: #### C BCA, HA1C, CMP, 09281-7, THYR, 3051-0 #### [facility] ([id number]) [address], [address] [place] [address] Bilirubin Ql (U) Negative Normal NEG [facility] Comment on above: Performed By: #### C BCA, HA1C, CMP, 20721-0, THYR, 3051-0 #### [facility] ([id number]) [address], [address] [place] [address] BLOOD/HGB Negative Normal NEG [facility] Comment on above: Performed By: #### C BCA, HA1C, CMP, 68088-0, THYR, 3051-0 #### [facility] ([id number]) [address], [address] [place] [address] Color (U) YELLOW Normal YELLOW [facility] Comment on above: Performed By: #### C BCA, HA1C, CMP, 43109-2, THYR, 3051-0 #### [facility] ([id number]) [address], [address] [place] [address] Glucose Ql (U) Negative Normal NEG [facility] Comment on above: Performed By: #### C BCA, HA1C, CMP, 82670-0, THYR, 3051-0 #### [facility] ([id number]) [address], [address] [place] [address] Ketones Ql (U) Trace Abnormal NEG [facility] Comment on above: Performed By: #### C BCA, HA1C, CMP, 50222-8, THYR, 3051-0 #### [facility] ([id number]) [address] [address] [place] [address] Leukocyte esterase Test strip Ql (U) Negative Normal NEG [facility] Comment on above: Performed By: #### C BCA, HA1C, CMP, 15894-6, THYR, 3051-0 #### [facility] ([id number]) [address] [address] [place] [address] Nitrite Ql (U) Negative Normal NEG [facility] Comment on above: Performed By: #### C BCA, HA1C, CMP, 77428-1, THYR, 3051-0 #### [facility] ([id number]) [address] [address] [place] [address] pH (U) 6.0 [pH] Normal 5.0-8.5 [facility] Comment on above: Performed By: #### C BCA, HA1C, CMP, 21880-8, THYR, 3051-0 #### [facility] ([id number]) [address] [address] [place] [address] Protein Ql (U) 30 mg/dL Abnormal NEG [facility] Comment on above: Performed By: #### C BCA, HA1C, CMP, 80675-8, THYR, 3051-0 #### [facility] ([id number]) [address] [address] [place] [address] R.B.CELLS 0 /hpf Normal 0-5 [facility] Comment on above: Performed By: #### C BCA, HA1C, CMP, 54532-9, THYR, 3051-0 #### [facility] ([id number]) [address] [address] [place] [address] Specific gravity (U) [Rel density] 1.020 Normal 1.003-1.035 [facility] Comment on above: Performed By: #### C BCA, HA1C, CMP, 11005-4, THYR, 3051-0 #### [facility] ([id number]) [address], [address] [place] [address] TURBIDITY HAZY Abnormal CLEAR [facility] Comment on above: Performed By: #### C BCA, HA1C, CMP, 52481-3, THYR, 3051-0 #### [facility] ([id number]) [address], [facility] [address] [place] [address] URIC ACID CRYSTALS PRESENT Abnormal NONE [facility] Comment on above: Performed By: #### C BCA, HA1C, CMP, 16536-4, THYR, 305-0 #### [facility] ([id number]) [address], [facility] [address] [place] [address] Urobilinogen Qn (U) 0.2 {Quan'U}/dL Normal <1.1 [facility] Comment on above: Performed By: #### C BCA, HA1C, CMP, 09896-4, THYR, 3051-0 #### [facility] ([id number]) [address], [address] [place] [address] W.B.CELLS 20 /hpf High 0-5 [facility] Comment on above: Performed By: #### C BCA, HA1C, CMP, 43966-4, THYR, 305-0 #### [facility] ([id number]) [address] [address] [place] [address] WBC CASTS 1 /lpf High 0 [facility] Comment on above: Performed By: #### C BCA, HA1C, CMP, 00060-5, THYR, 3051-0 #### [facility] ([id number]) [address] [address] [place] [address] URINE CULTUREon 08-08-2024 Bacteria identified Cx Nom (U) CULTURE RESULTS <10,000 ORGANISMS/ML NORMAL URO GENITAL DELMY Normal [facility] Comment on above: Performed By: #### C BCA, HA1C, CMP, 00556-6, THYR, 3051-0 #### [facility] ([id number]) [address] [address] [place] [address] CBC AND AUTO DIFFon 11-20-20 24 Band form neutrophils/100 WBC (Bld) 38.0 % Normal [facility] Comment on above: Performed By: #### C MP, CBCA #### [facility] ([id number]) [address] [address] [place] [address] Erythrocyte distribution width (RBC) [Ratio] 13.6 % Normal 11.5-15.0 [facility] Comment on above: Performed By: #### C DARINEL, CBCA #### [facility] ([id number]) [address] [address] [place] [address] Hematocrit (Bld) [Volume fraction] 37.6 % Normal 35-47 [facility] Comment on above: Performed By: #### C DARINEL, CBCA #### [facility] ([id number]) [address] [address] [place] [address] Hemoglobin (Bld) [Mass/Vol] 13.2 g/dL Normal 11.7-15.5 [facility] Comment on above: Performed By: #### C MP, CBCA #### [facility] ([id number]) [address] [address] [place] [address] Lymphocytes (Bld) [#/Vol] 0.5 10*3/uL Low 1.0-3.5 [facility] Comment on above: Performed By: #### C MP, CBCA #### [facility] ([id number]) [address] [address] [place] [address] Lymphocytes/100 WBC (Bld) 10.0 % Normal [facility] Comment on above: Performed By: #### C MP, CBCA #### [facility] ([id number]) [address], [address] [place] [address] MCH (RBC) [Entitic mass] 32.8 pg Normal 27-34 [facility] Comment on above: Performed By: #### C MP, CBCA #### [facility] ([id number]) [address], [address] [place] [address] MCHC (RBC) [Mass/Vol] 35.1 g/dL Normal 32-36 [facility] Comment on above: Performed By: #### C MP, CBCA #### [facility] ([id number]) [address], [address] [place] [address] MCV (RBC) [Entitic vol] 94 fL Normal 80-100 [facility] Comment on above: Performed By: #### C MP, CBCA #### [facility] ([id number]) [address], [address] [place] [address] Metamyelocytes/100 WBC (Bld) 2.0 % Normal [facility] Comment on above: Performed By: #### C MP, CBCA #### [facility] ([id number]) [address], [address] [place] [address] Monocytes (Bld) [#/Vol] 0.6 10*3/uL Normal 0-0.9 [facility] Comment on above: Performed By: #### C MP, CBCA #### [facility] ([id number]) [address] [address] [place] [address] Monocytes/100 WBC (Bld) 11.0 % Normal [facility] Comment on above: Performed By: #### C MP, CBCA #### [facility] ([id number]) [address], [address] [place] [address] NEUTROPHIL VACUOLES 1+ Abnormal NONE [facility] Comment on above: Performed By: #### C MP, CBCA #### [facility] ([id number]) [address], [address] [place] [address] Neutrophils (Bld) [#/Vol] 4.1 10*3/uL Normal 1.5-6.6 [facility] Comment on above: Performed By: #### C MP, CBCA #### [facility] ([id number]) [address], [address] [place] [address] Platelet mean volume (Bld) [Entitic vol] 9.8 fL Normal 7-12 [facility] Comment on above: Performed By: #### C MP, CBCA #### [facility] ([id number]) [address], [address] [place] [address] Platelets (Bld) [#/Vol] 170 10*3/uL Normal 150-450 [facility] Comment on above: Performed By: #### C MP, CBCA #### [facility] ([id number]) [address], [address] [place] [address] RBC COUNT 4.01 X10E12/L Normal 3.80-5.20 [facility] Comment on above: Performed By: #### C MP, CBCA #### [facility] ([id number]) [address], [address] [place] [address] SEG NEUTROPHIL 39.0 % Normal [facility] Comment on above: Performed By: #### C MP, CBCA #### [facility] ([id number]) [address], [address] [place] [address] WBC (Bld) [#/Vol] 5.3 10*3/uL Normal 4.0-11.0 [facility] Comment on above: Performed By: #### C MP, CBCA #### [facility] ([id number]) [address], [address] [place] [address] COMPREHENSIVE METABOLIC PANE Abhishek 08-05-2024 Albumin [Mass/Vol] 3.9 g/dL Normal 3.2-5.3 [facility] Comment on above: Performed By: #### C DARINEL CBCA #### [facility] ([id number]) [address], [address] [place] [address] ALP [Catalytic activity/Vol] 61 U/L Normal 39-130 [facility] Comment on above: Performed By: #### C DARINEL CBCA #### [facility] ([id number]) [address], [address] [place] [address] ALT [Catalytic activity/Vol] 23 U/L Normal 0-31 [facility] Comment on above: Performed By: #### C DARINEL CBCA #### [facility] ([id number]) [address], [address] [place] [address] Anion gap [Moles/Vol] 13 mmol/L Normal 5-15 [facility] Comment on above: Performed By: #### C DARINEL CBCA #### [facility] ([id number]) [address], [address] [place] [address] AST [Catalytic activity/Vol] 46 U/L High 0-41 [facility] Comment on above: Performed By: #### C DARINEL CBCA #### [facility] ([id number]) [address], [address] [place] [address] Bilirubin [Mass/Vol] 1.1 mg/dL Normal 0.3-1.2 [facility] Comment on above: Performed By: #### C DARINEL CBCA #### [facility] ([id number]) [address], [address] [place] [address] Calcium [Mass/Vol] 9.1 mg/dL Normal 8.5-10.5 [facility] Comment on above: Performed By: #### C DARINEL, CBCA #### [facility] ([id number]) [address], [address] [place] [address] Chloride [Moles/Vol] 99 mmol/L Normal 98-109 [facility] Comment on above: Performed By: #### C DARINEL, CBCA #### [facility] ([id number]) [address], [address] [place] [address] CO2 [Moles/Vol] 21 mmol/L Low 22-32 [facility] Comment on above: Performed By: #### C DARINEL, CBCA #### [facility] ([id number]) [address], [address] [place] [address] Creatinine [Mass/Vol] 1.29 mg/dL High 0.40-1.00 [facility] Comment on above: Result Comment: METH OD TRACEABLE TO IDMS STANDARD Performed By: #### C DARINEL CBCA #### [facility] ([id number]) [address], [address] [place] [address] GFR/1.73 sq M.predicted among non-blacks MDRD (S/P/Bld) [Vol rate/Area] 44 mL/min/{1.73_m2} Low >59 [facility] Comment on above: Result Comment: Reported eGFR is based on the CKD-EPI 2020 equation that does not use a race coefficient. Performed By: #### C DARINEL, CBCA #### [facility] ([id number]) [address], [address] [place] [address] Glucose [Mass/Vol] 175 mg/dL High 65-99 [facility] Comment on above: Performed By: #### C DARINEL, CBCA #### [facility] ([id number]) [address] [place] [address] Potassium [Moles/Vol] 3.3 mmol/L Low 3.5-5.0 [facility] Comment on above: Performed By: #### C MP, CBCA #### [facility] ([id number]) [address] [place] [address] Protein [Mass/Vol] 7.0 g/dL Normal 6.0-8.0 [facility] Comment on above: Performed By: #### C MP, CBCA #### [facility] ([id number]) [address] [place] [address] Sodium [Moles/Vol] 133 mmol/L Low 134-146 [facility] Comment on above: Performed By: #### C MP, CBCA #### [facility] ([id number]) [address] [place] [address] Urea nitrogen [Mass/Vol] 20 mg/dL Normal 5-27 [facility] Comment on above: Performed By: #### C MP, CBCA #### [facility] ([id number]) [address] [place] [address] CBC AND AUTO DIFFon 07-23-20 24 ABSOLUTE BASOPHIL 0.0 X10E9/L Normal 0.0-0.2 [facility] Comment on above: Performed By: #### C BCA, HA1C, CMP, 38187-6, THYR, 3051-0 #### [facility] ([id number]) [address], [address] [place] [address] ABSOLUTE NEUTROPHIL 2.4 X10E9/L Normal 1.5-6.6 [facility] Comment on above: Performed By: #### C BCA, HA1C, CMP, 68670-3, THYR, 3051-0 #### [facility] ([id number]) [address] [place] [address] Basophils/100 WBC (Bld) 0.7 % Normal [facility] Comment on above: Performed By: #### C BCA, HA1C, CMP, 81118-5, THYR, 3051-0 #### [facility] ([id number]) [address] [address] [place] [address] Eosinophils (Bld) [#/Vol] 0.1 10*3/uL Normal 0.0-0.4 [facility] Comment on above: Performed By: #### C BCA, HA1C, CMP, 78578-2, THYR, 3051-0 #### [facility] ([id number]) [address], [facility] [address] [place] [address] Eosinophils/100 WBC (Bld) 2.1 % Normal [facility] Comment on above: Performed By: #### C BCA, HA1C, CMP, 09191-9, THYR, 3051-0 #### [facility] ([id number]) [address], [address] [place] [address] Erythrocyte distribution width (RBC) [Ratio] 13.8 % Normal 11.5-15.0 [facility] Comment on above: Performed By: #### C BCA, HA1C, CMP, 52993-8, THYR, 3051-0 #### [facility] ([id number]) [address] [address] [place] [address] Hematocrit (Bld) [Volume fraction] 35.9 % Normal 35-47 [facility] Comment on above: Performed By: #### C BCA, HA1C, CMP, 12999-8, THYR, 3051-0 #### [facility] ([id number]) [address] [address] [place] [address] Hemoglobin (Bld) [Mass/Vol] 12.5 g/dL Normal 11.7-15.5 [facility] Comment on above: Performed By: #### C BCA, HA1C, CMP, 59194-2, THYR, 3051-0 #### [facility] ([id number]) [address] [place] [address] Lymphocytes (Bld) [#/Vol] 1.6 10*3/uL Normal 1.0-3.5 [facility] Comment on above: Performed By: #### C BCA, HA1C, CMP, 01349-7, THYR, 3051-0 #### [facility] ([id number]) [address], [facility] [address] [place] [address] Lymphocytes/100 WBC (Bld) 34.8 % Normal [facility] Comment on above: Performed By: #### C BCA, HA1C, CMP, 45771-0, THYR, 305-0 #### [facility] ([id number]) [address] [place] [address] MCH (RBC) [Entitic mass] 33.2 pg Normal 27-34 [facility] Comment on above: Performed By: #### C BCA, HA1C, CMP, 43423-7, THYR, 305-0 #### [facility] ([id number]) [address] [address] [place] [address] MCHC (RBC) [Mass/Vol] 34.8 g/dL Normal 32-36 [facility] Comment on above: Performed By: #### C BCA, HA1C, CMP, 72574-9, THYR, 3051-0 #### [facility] ([id number]) [address] [place] [address] MCV (RBC) [Entitic vol] 95 fL Normal 80-100 [facility] Comment on above: Performed By: #### C BCA, HA1C, CMP, 37157-1, THYR, 3051-0 #### [facility] ([id number]) [address], [address] [place] [address] Monocytes (Bld) [#/Vol] 0.4 10*3/uL Normal 0-0.9 [facility] Comment on above: Performed By: #### C BCA, HA1C, CMP, 36037-7, THYR, 3051-0 #### [facility] ([id number]) [address], [address] [place] [address] Monocytes/100 WBC (Bld) 9.7 % Normal [facility] Comment on above: Performed By: #### C BCA, HA1C, CMP, 73303-5, THYR, 3051-0 #### [facility] ([id number]) [address], [address] [place] [address] Neutrophils/100 WBC (Bld) 52.7 % Normal [facility] Comment on above: Performed By: #### C BCA, HA1C, CMP, 91488-8, THYR, 3051-0 #### [facility] ([id number]) [address], [address] [place] [address] Platelet mean volume (Bld) [Entitic vol] 8.6 fL Normal 7-12 [facility] Comment on above: Performed By: #### C BCA, HA1C, CMP, 79679-6, THYR, 3051-0 #### [facility] ([id number]) [address], [address] [place] [address] Platelets (Bld) [#/Vol] 251 10*3/uL Normal 150-450 [facility] Comment on above: Performed By: #### C BCA, HA1C, CMP, 12278-4, THYR, 3051-0 #### [facility] ([id number]) [address], [address] [place] [address] RBC COUNT 3.76 X10E12/L Low 3.80-5.20 [facility] Comment on above: Performed By: #### C BCA, HA1C, CMP, 58991-8, THYR, 3051-0 #### [facility] ([id number]) [address], [address] [place] [address] WBC (Bld) [#/Vol] 4.6 10*3/uL Normal 4.0-11.0 [facility] Comment on above: Performed By: #### C BCA, HA1C, CMP, 83797-6, THYR, 3051-0 #### [facility] ([id number]) [address], [address] [place] [address] COMPREHENSIVE METABOLIC PANE Abhishek 07-23-2024 Albumin [Mass/Vol] 4.1 g/dL Normal 3.2-5.3 [facility] Comment on above: Performed By: #### C BCA, HA1C, CMP, 50641-5, THYR, 305-0 #### [facility] ([id number]) [address], [address] [place] [address] ALP [Catalytic activity/Vol] 69 U/L Normal 39-130 [facility] Comment on above: Performed By: #### C BCA, HA1C, CMP, 32413-1, THYR, 3051-0 #### [facility] ([id number]) [address], [address] [place] [address] ALT [Catalytic activity/Vol] 9 U/L Normal 0-31 [facility] Comment on above: Performed By: #### C BCA, HA1C, CMP, 69423-0, THYR, 3051-0 #### [facility] ([id number]) [address], [address] [place] [address] Anion gap [Moles/Vol] 9 mmol/L Normal 5-15 [facility] Comment on above: Performed By: #### C BCA, HA1C, CMP, 48818-4, THYR, 3051-0 #### [facility] ([id number]) [address], [address] [place] [address] AST [Catalytic activity/Vol] 18 U/L Normal 0-41 [facility] Comment on above: Performed By: #### C BCA, HA1C, CMP, 85584-6, THYR, 3051-0 #### [facility] ([id number]) [address], [address] [place] [address] Bilirubin [Mass/Vol] 1.1 mg/dL Normal 0.3-1.2 [facility] Comment on above: Performed By: #### C BCA, HA1C, CMP, 52993-3, THYR, 3051-0 #### [facility] ([id number]) [address], [address] [place] [address] Calcium [Mass/Vol] 9.4 mg/dL Normal 8.5-10.5 [facility] Comment on above: Performed By: #### C BCA, HA1C, CMP, 50517-8, THYR, 3051-0 #### [facility] ([id number]) [address], [address] [place] [address] Chloride [Moles/Vol] 107 mmol/L Normal 98-109 [facility] Comment on above: Performed By: #### C BCA, HA1C, CMP, 53628-2, THYR, 3051-0 #### [facility] ([id number]) [address], [address] [place] [address] CO2 [Moles/Vol] 28 mmol/L Normal 22-32 [facility] Comment on above: Performed By: #### C BCA, HA1C, CMP, 64960-9, THYR, 3051-0 #### [facility] ([id number]) [address], [address] [place] [address] Creatinine [Mass/Vol] 0.85 mg/dL Normal 0.40-1.00 [facility] Comment on above: Result Comment: METH OD TRACEABLE TO IDMS STANDARD Performed By: #### C BCA, HA1C, CMP, 12834-0, THYR, 3051-0 #### [facility] ([id number]) [address], [address] [place] [address] GFR/1.73 sq M.predicted among non-blacks MDRD (S/P/Bld) [Vol rate/Area] 73 mL/min/{1.73_m2} Normal >59 [facility] Comment on above: Result Comment: Reported eGFR is based on the CKD-EPI 2020 equation that does not use a race coefficient. Performed By: #### C BCA, HA1C, CMP, 73626-4, THYR, 3051-0 #### [facility] ([id number]) [address] [address] [place] [address] Glucose [Mass/Vol] 90 mg/dL Normal 65-99 [facility] Comment on above: Performed By: #### C BCA, HA1C, CMP, 62121-9, THYR, 3051-0 #### [facility] ([id number]) [address] [address] [place] [address] Potassium [Moles/Vol] 4.0 mmol/L Normal 3.5-5.0 [facility] Comment on above: Performed By: #### C BCA, HA1C, CMP, 72974-2, THYR, 3051-0 #### [facility] ([id number]) [address] [address] [place] [address] Protein [Mass/Vol] 6.8 g/dL Normal 6.0-8.0 [facility] Comment on above: Performed By: #### C BCA, HA1C, CMP, 87483-2, THYR, 3051-0 #### [facility] ([id number]) [address] [address] [place] [address] Sodium [Moles/Vol] 144 mmol/L Normal 134-146 [facility] Comment on above: Performed By: #### C BCA, HA1C, CMP, 81516-5, THYR, 3051-0 #### [facility] ([id number]) [address], [address] [place] [address] Urea nitrogen [Mass/Vol] 19 mg/dL Normal 5-27 [facility] Comment on above: Performed By: #### C BCA, HA1C, CMP, 72984-5, THYR, 3051-0 #### [facility] ([id number]) [address] [facility], [address] [place] [address] FREE T3on 07-23-2024 Free T3 [Mass/Vol] 2.66 pg/mL Normal 2.50-3.90 [facility] Comment on above: Performed By: #### C BCA, HA1C, CMP, 72768-5, THYR, 305-0 #### [facility] ([id number]) [address] [facility], [address] [place] [address] HGB A1C (GLYCO-HGB)on 2023 Glucose [Mass/Vol] 108 mg/dL Normal [facility] Comment on above: Performed By: #### C BCA, HA1C, CMP, 22728-4, THYR, 305-0 #### [facility] ([id number]) [address], [address] [place] [address] HbA1c (Bld) [Mass fraction] 5.4 % Normal 4.4-5.6 [facility] Comment on above: Result Comment: NOTE ADA Guidelines Result HgbA1c Normal : less than 5.7 % Prediabetes : 5.7 % to 6.4 % Diabetes : > 6.4 % Use with caution in patients with abnormal hemoglobin variants as the half-life of red blood cells and in vivo glycation rates are affected. Performed By: #### C BCA, HA1C, CMP, 90447-8, THYR, 3051-0 #### [facility] ([id number]) [address], [address] [place] [address] Insulin Qnon 07-23-2024 INSULIN 7.91 uIU/mL Normal 1.00-23.00 [facility] Comment on above: Result Comment: Ref. range is for FASTING NON-DIABETIC POPULATION. Performed By: #### 2 0448-7 #### [facility] ([id number]) [address], [address] [place] [address] Lipid 1996 panelon Cholesterol [Mass/Vol] 222 mg/dL High 150-200 [facility] Comment on above: Performed By: #### C BCA, HA1C, CMP, 48243-0, THYR, 3051-0 #### [facility] ([id number]) [address], [address] [place] [address] Cholesterol in HDL [Mass/Vol] 67 mg/dL Normal >39 [facility] Comment on above: Result Comment: HDL <40 mg/dL - High Risk HDL > or = 40mg/dL- Desirable HDL >60 mg/dL - Negative Risk Performed By: #### C BCA, HA1C, CMP, 58265-2, THYR, 3051-0 #### [facility] ([id number]) [address], [address] [place] [address] Cholesterol in LDL [Mass/Vol] 138 mg/dL High <130 [facility] Comment on above: Result Comment: LDL <100 mg/dL - Desirable LDL >160 mg/dL - High Risk Performed By: #### C BCA, HA1C, CMP, 98217-5, THYR, 3051-0 #### [facility] ([id number]) [address], [address] [place] [address] Cholesterol in VLDL [Mass/Vol] 17 mg/dL Normal 0-30 [facility] Comment on above: Performed By: #### C BCA, HA1C, CMP, 97652-1, THYR, 3051-0 #### [facility] ([id number]) [address] [address] [place] [address] CHOLESTEROL:HDL 3.3 Normal 1.0-5.0 [facility] Comment on above: Performed By: #### C BCA, HA1C, CMP, 78447-4, THYR, 3051-0 #### [facility] ([id number]) [address] [address] Triglyceride [Mass/Vol] 86 mg/dL Normal 27-150 [facility] Comment on above: Performed By: #### C BCA, HA1C, CMP, 25571-4, THYR, 3051-0 #### [facility] ([id number]) [address] [address] THYROID PROFILEon 07-23-2024 Free T4 [Mass/Vol] 0.72 ng/dL Normal 0.61-1.60 [facility] Comment on above: Performed By: #### C BCA, HA1C, CMP, 51634-1, THYR, 3051-0 #### [facility] ([id number]) [address] [address] TSH 1.71 uIU/mL Normal 0.49-4.67 [facility] Comment on above: Performed By: #### C BCA, HA1C, CMP, 46747-7, THYR, 3051-0 #### [facility] ([id number]) [address] [address] MR BRAIN WO CONTon 4 MR BRAIN [...] Haskins MD on 09/26/2023 7:49 PM Normal [facility] Folate [Mass/volume] in Seru m or PlasmaOrdered By: Jorge Ladd on 09-03-2023 Folate [Mass/Vol] 15.2 ng/mL >5.9 [facility] Comment on above: Folate reference ran ge: >5.9 ng/mlThe WHO technical consultation on folate and vitamin m86pxwmmyfzqvsn has determined that folate concentrations lessthan 4 ng/ml are considered deficient. Thyrotropin [Units/volume] i n Serum or PlasmaOrdered By: Jorge Ladd on 09-03-2023 TSH Qn 1.89 m[IU]/L Normal 0.45-5.33 [facility] Comment on above: Result Comment: PERF ORMED BY: [place] [address] PATHOLOGIST ENRICHMENT TEACHER LISSA SORIANO M.D. Performed By: #### T SH3, [id number] #### [facility] [address] [place] [address] Vit. B12/Folate Profileon Folate 15.2 ng/mL Normal >5.9 [facility] Comment on above: Result Comment: Mel te reference range: >5.9 ng/ml The WHO technical consultation on folate and vitamin b12 deficiencies has determined that folate concentrations less than 4 ng/ml are considered deficient. Performed By: #### T SH3, [id number] #### [facility] [address] [place] [address] Vitamin B12 ser/plasOrdered By: Jorge Ladd on 09-03-2023 Cobalamin (Vitamin B12) [Mass/Vol] 711 pg/mL Normal 180-914 [facility] Comment on above: Performed By: #### T SH3, [id number] #### [facility] [address] CBC AUTO DIFFon 12-20-2022 BASO # 0.0 103/ul Normal 0.0-0.1 [facility] Comment on above: Performed By: #### C BC ####[facility] [address] [place] [address]Dr. Veena Hernández Basophils/100 WBC (Bld) 0.1 % Critically low 0.2-2.0 [facility] Comment on above: Performed By: #### C BC ####[facility] [address] [place], [place] [address]Dr. Veena Hernández EO # 0.1 103/ul Normal 0.0-0.7 [facility] Comment on above: Performed By: #### C BC ####[facility] [address] [place], [place] [address]Dr. Veena Hernández Eosinophils/100 WBC (Bld) 1.2 % Normal 0.9-7.0 [facility] Comment on above: Performed By: #### C BC ####[facility] Fl[address]mt[address] [place], [place] [address]Dr. Veena Hernández Erythrocyte distribution width (RBC) [Ratio] 13.2 % Normal 11.0-15.0 [facility] Comment on above: Performed By: #### C BC ####[facility] Mg[address]ngifk[address] [place], [place] [address]Dr. Veena Hernández Hematocrit (Bld) [Volume fraction] 38.4 % Normal 36.0-48.0 [facility] Comment on above: Performed By: #### C BC ####[facility] V[address]lecun[address] [place], [place] [address]Dr. Veena Hernández Hemoglobin (Bld) [Mass/Vol] 12.6 g/dL Normal 12.0-16.0 [facility] Comment on above: Performed By: #### C BC ####[facility] V[address] [place], [place] [address]DrLindsey Collazoha Edgar IG # 0.02 10e3/ul Normal 0.00-0.03 [facility] Comment on above: Performed By: #### C BC ####[facility] [address] [place] [address]DrLindsey Collazoha Edgar IG % 0.3 % Normal 0.0-0.5 [facility] Comment on above: Performed By: #### C BC ####[facility] [address] [place] [address]DrLindsey Hernández LYMPH # 0.3 103/ul Critically low 1.2-3.8 [facility] Comment on above: Performed By: #### C BC ####[facility] I[address] [place], [place] [address]DrLindsey Hernández Lymphocytes/100 WBC (Bld) 4.1 % Critically low 20.5-60.0 [facility] Comment on above: Performed By: #### C BC ####[facility] M[address] [place], [place] [address]DrLindsey Hernández MANUAL DIFF REQ NO Normal [facility] Comment on above: Performed By: #### C BC ####[facility] Yudya[address]ljm[address] [place], [place] [address]DrLindsey Hernández MCH (RBC) [Entitic mass] 31.4 pg Normal 26.7-34.0 [facility] Comment on above: Performed By: #### C BC ####[facility] [address]xia[address] [place], [place] [address]DrLindsey Hernández MCHC (RBC) [Mass/Vol] 32.8 g/dL Normal 29.9-35.2 [facility] Comment on above: Performed By: #### C BC ####[facility] D[address]awkwn[address] [place], [place] [address]DrLindsey Hernández MCV (RBC) [Entitic vol] 95.8 fL Normal 81.0-99.0 [facility] Comment on above: Performed By: #### C BC ####[facility] Amsinlaxle[address] [place], [place] [address]DrLindsey Hernández MONO # 0.3 103/ul Normal 0.3-0.8 [facility] Comment on above: Performed By: #### C BC ####[facility] [address]qubqnf[address] [place] [address]Dr. Veena Hernández Monocytes/100 WBC (Bld) 3.8 % Normal 1.7-12.0 [facility] Comment on above: Performed By: #### C BC ####[facility] [address] [place] [address]Dr. Veena Hernández NEUT # 7.1 103/ul Critically high 1.4-6.5 [facility] Comment on above: Performed By: #### C BC ####[facility] Yljugfmnup[address] [place], [place] [address]Dr. Veena Hernández Neutrophils/100 WBC (Bld) 90.5 % Critically high 43.0-75.0 [facility] Comment on above: Performed By: #### C BC ####[facility] Jtgrrqsipp[address] [place], [place] [address]Dr. Veena Hernández Platelet mean volume (Bld) [Entitic vol] 9.8 fL Normal 9.5-13.5 [facility] Comment on above: Performed By: #### C BC ####[facility] [address] [place] [address]Dr. Veena Hernández PLT 231 103/ul Normal 150-450 [facility] Comment on above: Performed By: #### C BC ####[facility] [address]thr[address] [place] [address]Dr. Veena Hernández RBC 4.01 106/ul Critically low 4.20-5.40 [facility] Comment on above: Performed By: #### C BC ####[facility] [address] [place] [address]Dr. Veena Hernández WBC 7.8 103/ul Normal 4.0-11.0 [facility] Comment on above: Performed By: #### C BC ####[facility] [address] [place], [place] [address]DrLindsey Veena Hernández Covid-19 PCR (CVDTBH)on SARS-CoV-2 (COVID-19) RNA ROGER+probe Ql (Unsp spec) Not detected Normal NOT DETECTED [facility] Comment on above: Result Comment: This test is not yet approved or cleared by the [place] FDA. When there are no FDA-approved or cleared tests available, and other criteria are met, FDA can make tests available under an emergency access mechanism called an Emergency Use Authorization (EUA). The EUA for this test is supported by the [place] Inspector of Health and Human Service's (HHS's) declaration [...] with SARS-CoV-2. Performed By: #### C VDTBH ####[facility] Mhumifiynv[address] [place], [place] [address]Dr. Valeha Hernández INFLUENZA A AND B AGon 12-20 INFLUANE SEE BELOW Normal The [facility] Comment on above: Result Comment: Nega tive for Flu A protein angiten. Infection due to Flu A cannot be ruled out. Flu A angiten in the sample may be below the detection limit of the test. Performed By: #### I NFLUAB ####[facility] [address]irm[address] [place] [id number]. Valeha Hernández INFLUBNEGH SEE BELOW Normal [facility] Comment on above: Result Comment: Nega tive for Flu B protein antigen. Infection due to Flu B cannot be ruled out. Flu B antigen in the sample may be below the detection limit of the test. Performed By: #### I NFLUAB ####[facility] [address] [place], [place] [address]Dr. Veena Hernández INFLUENZA A AG Negative Normal NEGATIVE SEE COMMENT [facility] Comment on above: Performed By: #### I NFLUAB ####[facility] [address] [place] [address]Dr. Veena Hernández INFLUENZA B AG Negative Normal NEGATIVE SEE COMMENT [facility] Comment on above: Performed By: #### I NFLUAB ####[facility] [address]gexn[address] [place] [address]Dr. Veena Hernández LACTATE/LACTIC ACIDon 2022 Lactate [Moles/Vol] 0.7 mmol/L Normal 0.4-2.0 [facility] Comment on above: Performed By: #### L ACT ####[facility] [address] [place] [address]Dr. Veena Hernández LIPASEon 12-20-2022 Lipase [Catalytic activity/Vol] 309.0 U/L Normal 73.0-393.0 [facility] Comment on above: Performed By: #### L IPA HSTROPN, CMP ####[facility] [address]ckyh[address] [place] [address]Dr. Veena Hernández PROF 14(COMP METB)on 023 Albumin [Mass/Vol] 3.7 g/dL Normal 3.4-5.0 [facility] Comment on above: Performed By: #### L IPA HSTROPN, CMP ####[facility] [address]ub[address]enu[address] [place] [address]Dr. Veena Hernández Albumin/Globulin [Mass ratio] 1.2 {ratio} Normal [facility] Comment on above: Performed By: #### L IPA, HSTROPN, CMP ####[facility] [address] [place] [address]Dr. Veena Hernández ALP [Catalytic activity/Vol] 85 U/L Normal 46-116 [facility] Comment on above: Performed By: #### L IPA HSTROPN, CMP ####[facility] [address]kt[address] [place] [address]Dr. Veena Hernández ALT [Catalytic activity/Vol] 15 U/L Normal 14-59 [facility] Comment on above: Performed By: #### L IPA HSTROPN, CMP ####[facility] [address]pczs[address] [place] [address]Dr. Veena Hernández Anion gap [Moles/Vol] 11.2 mmol/L Normal Th [facility] Comment on above: Performed By: #### L IPA, HSTROPN, CMP ####[facility] [address]qy[address] [place] [address]Dr. Veena Hernández AST [Catalytic activity/Vol] 15 U/L Normal 15-37 [facility] Comment on above: Performed By: #### L IPA, HSTROPN, CMP ####[facility] Pirxf[address]isf[address] [place], [place] [address]Dr. Veena Hernández Bilirubin [Mass/Vol] 0.9 mg/dL Normal 0.2-1.0 [facility] Comment on above: Performed By: #### L IPA, HSTROPN, CMP ####[facility] P[address] [place], [place] [address]Dr. Veena Hernández Calcium [Mass/Vol] 8.7 mg/dL Normal 8.5-10.1 [facility] Comment on above: Performed By: #### L IPA, HSTROPN, CMP ####[facility] [address]ckrk[address] [place], [place] [address]Dr. Veena Hernández Chloride [Moles/Vol] 104 mmol/L Normal 98-107 [facility] Comment on above: Performed By: #### L IPA, HSTROPN, CMP ####[facility] Ez[address]frx[address] [place] [address]Dr. Veena Hernández CO2 [Moles/Vol] 27.8 mmol/L Normal 21.0-32.0 The [facility] Comment on above: Performed By: #### L IPA, HSTROPN, CMP ####[facility] [address] [place], [place] [address]Dr. Veena Hernández Creatinine [Mass/Vol] 0.77 mg/dL Normal 0.55-1.02 [facility] Comment on above: Performed By: #### L IPA, HSTROPN, CMP ####[facility] [address] [place] [id number]. Veena Hernández EGFR-AF GUINEAN >60 Normal >=60 [facility] Comment on above: Performed By: #### L IPA, HSTROPN, CMP ####[facility] [address] [place] [address]Dr. Veena Hernández EGFR-NON AF GUINEAN >60 Normal >=60 [facility] Comment on above: Performed By: #### L IPA, HSTROPN, CMP ####[facility] [address] [place] [address]Dr. Veena Hernández Globulin (S) [Mass/Vol] 3.2 g/dL Normal [facility] Comment on above: Performed By: #### L IPA, HSTROPN, CMP ####[facility] [address] [place] [address]Dr. Veena Hernández Glucose [Mass/Vol] 121 mg/dL Critically high 74-106 [facility] Comment on above: Performed By: #### L IPA, HSTROPN, CMP ####[facility] [address] [place] [address]Dr. Veena Hernández Potassium [Moles/Vol] 4.0 mmol/L Normal 3.5-5.1 [facility] Comment on above: Performed By: #### L IPA, HSTROPN, CMP ####[facility] [address]ls[address] [place] [address]Dr. Veena Hernández Protein [Mass/Vol] 6.9 g/dL Normal 6.4-8.2 [facility] Comment on above: Performed By: #### L IPA, HSTROPN, CMP ####[facility] [address] [place] [address]Dr. Veena Hernández Sodium [Moles/Vol] 139 mmol/L Normal 136-145 [facility] Comment on above: Performed By: #### L IPA, HSTROPN, CMP ####[facility] [address] [place] [address]Dr. Veena Hernández Urea nitrogen [Mass/Vol] 19.0 mg/dL Critically high 7.0-18.0 [facility] Comment on above: Performed By: #### L IPA, HSTROPN, CMP ####[facility] [address] [place] [id number]. Veena Hernández Urea nitrogen/Creatinine [Mass ratio] 24.7 mg/mg Normal [facility] Comment on above: Performed By: #### L IPA, HSTROPN, CMP ####[facility] [address] [place] [id number]. Veena Hernández SYMPTOMATIC COVID-19 ANTIGEN on 12-20-2022 EUA Statement SEE BELOW Normal [facility] Comment on above: Result Comment: [...] revoked sooner. Performed By: #### C VDAGS ####[facility] [address] [place] [id number]. Veena Hernández SARS-CoV-2 (COVID-19) RNA ROGER+probe Ql (Unsp spec) Negative Normal NEGATIVE [facility] Comment on above: Performed By: #### C VDAGS ####[facility] [address] [place] [id number]. Veena Hernández TROPONIN, HIGH SENSITIVITYon 12-20-2022 HSTROP <4.0 Normal 4.0-51.3 [facility] Comment on above: Result Comment: CUT- OFF POINTS HAVE BEEN ESTABLISHED BASED ON THE FOURTH UNIVERSAL DEFINITIONS OF MYOCARDIAL INFARCTION. THE UPPER REFERENCE LIMIT (URL) OF TROPONIN, DEFINED THE 99TH PERCENTILE OF cTnI DISTRIBUTION IN A REFERENCE POPULATION, HAS BEEN CONFIRMED THE DECISION THRESHOLD FOR [place] DIAGNOSIS. Performed By: #### L IPA, HSTROPN, CMP ####[facility] [address] [place], [place] [address]OkLindsey Hernández XR CSPINE 2_3 VIEWSon 2021 XR [...] by: ALEX SOLANO Date: 2022-09-05 17:06 Normal [facility] ECHOCARDIO M/2D COMPLETEon 1 10-30-2021 ECHOCARDIO M/2D COMPLETE Patient: KEVON CAMPOS Exam Date: 08/29/2022 : 1950 Gender:F Ordering : NEIDA EVELYNMitzi HERNANDEZVONCarlos [facility] Admission #: [id number] Family : Order #: [id number] CLICK HERE TO VIEW EXAM ECHOCARDIOGRAM REPORT [...] on 08/30/2022 at 12:53 Approved by: Myles Haeny M.D. on 08/30/2022 at 12:57 Normal [facility] NM STRESS/REST MULTIon 08-29 NM STRESS/REST MULTI Patient: KEVON CAMPOS Exam Date: 08/29/2022 : 1950 Gender:F Ordering : NEIDA EVELYNMitzi TARIQ [facility] Admission #: [id number] Family : Order #: [id number] CLICK HERE TO VIEW EXAM RADIOLOGY REPORT [...] M.D. on 08/29/2022 at 15:58 Normal [facility] BNPon 08-01-2022 Natriuretic peptide B (Bld) [Mass/Vol] 41.0 pg/mL Normal <=900.0 [facility] Comment on above: Performed By: #### C K, CKMB, REINALDO, CMP, BNP, HSTROPN #### [facility] [address] [place], [place] [address] Dr. Veena Hernández CBC AUTO DIFFon 08-01-2022 BASO # 0.0 103/ul Normal 0.0-0.1 [facility] Comment on above: Performed By: #### C BC ####[facility] [address] [place] [address]Dr. Veena Hernández Basophils/100 WBC (Bld) 0.8 % Normal 0.2-2.0 [facility] Comment on above: Performed By: #### C BC ####[facility] [address] [place] [address]Dr. Veena Hernández EO # 0.1 103/ul Normal 0.0-0.7 [facility] Comment on above: Performed By: #### C BC ####[facility] [address] [place] [address]Dr. Veena Hernández Eosinophils/100 WBC (Bld) 1.3 % Normal 0.9-7.0 [facility] Comment on above: Performed By: #### C BC ####[facility] [address] [place] [address]Dr. Veena Hernández Erythrocyte distribution width (RBC) [Ratio] 13.3 % Normal 11.0-15.0 [facility] Comment on above: Performed By: #### C BC ####[facility] [address] [place] [address]Dr. Veena Hernández Hematocrit (Bld) [Volume fraction] 39.3 % Normal 36.0-48.0 [facility] Comment on above: Performed By: #### C BC ####[facility] [address] [place], [place] [address]DrLindsey Hernández Hemoglobin (Bld) [Mass/Vol] 12.9 g/dL Normal 12.0-16.0 [facility] Comment on above: Performed By: #### C BC ####[facility] [address] [place] [address]DrLindsey Hernández IG # 0.00 10e3/ul Normal 0.00-0.03 [facility] Comment on above: Performed By: #### C BC ####[facility] [address] [place] [address]DrLindsey Hernández IG % 0.0 % Normal 0.0-0.5 [facility] Comment on above: Performed By: #### C BC ####[facility] [address] [place], [place] [address]DrLindsey Hernández LYMPH # 1.8 103/ul Normal 1.2-3.8 [facility] Comment on above: Performed By: #### C BC ####[facility] [address] [place] [address]DrLindsey Hernández Lymphocytes/100 WBC (Bld) 34.3 % Normal 20.5-60.0 [facility] Comment on above: Performed By: #### C BC ####[facility] [address] [place] [address]DrLindsey Hernández MANUAL DIFF REQ NO Normal [facility] Comment on above: Performed By: #### C BC ####[facility] [address] [place] [address]DrLindsey Hernández MCH (RBC) [Entitic mass] 31.1 pg Normal 26.7-34.0 [facility] Comment on above: Performed By: #### C BC ####[facility] [address] [place] [address]DrLindsey Hernández MCHC (RBC) [Mass/Vol] 32.8 g/dL Normal 29.9-35.2 [facility] Comment on above: Performed By: #### C BC ####[facility] [address] [place] [address]11DrLindsey Hernández MCV (RBC) [Entitic vol] 94.7 fL Normal 81.0-99.0 [facility] Comment on above: Performed By: #### C BC ####[facility] [address] [place] [address]Dr. Veena Hernández MONO # 0.3 103/ul Normal 0.3-0.8 [facility] Comment on above: Performed By: #### C BC ####[facility] [address] [place] [address]Dr. Veena Hernández Monocytes/100 WBC (Bld) 6.1 % Normal 1.7-12.0 [facility] Comment on above: Performed By: #### C BC ####[facility] [address] [place] [address]Dr. Veena Hernández NEUT # 3.0 103/ul Normal 1.4-6.5 [facility] Comment on above: Performed By: #### C BC ####[facility] [address] [place], [place] [address]Dr. Veena Hernández Neutrophils/100 WBC (Bld) 57.5 % Normal 43.0-75.0 [facility] Comment on above: Performed By: #### C BC ####[facility] [address] [place], [place] [address]Dr. Veena Hernández Platelet mean volume (Bld) [Entitic vol] 9.8 fL Normal 9.5-13.5 [facility] Comment on above: Performed By: #### C BC ####[facility] [address] [place], [place] [address]Dr. Veena Hernández PLT 227 103/ul Normal 150-450 [facility] Comment on above: Performed By: #### C BC ####[facility] [address] [place], [place] [address]Dr. Veena Hernández RBC 4.15 106/ul Critically low 4.20-5.40 [facility] Comment on above: Performed By: #### C BC ####[facility] [address] [place] [address]Dr. Valeha Edgar WBC 5.3 103/ul Normal 4.0-11.0 [facility] Comment on above: Performed By: #### C BC ####[facility] [address] [place] [address]Dr. Veena Hernández CKMBon 08-01-2022 CK.MB [Mass/Vol] 0.90 ng/mL Normal <=3.60 [facility] Comment on above: Performed By: #### C K, CKMB, REINALDO, CMP, BNP, HSTROPN #### [facility] [address] [place] [address] [address] Veena Hernández CPKon 08-01-2022 CK [Catalytic activity/Vol] 66 U/L Normal 26-192 [facility] Comment on above: Performed By: #### C K, CKMB, REINALDO, CMP, BNP, HSTROPN #### [facility] [address] [place] [address] [address] Veena Hernández MYOGLOBINon 08-01-2022 REINALDO 38 ng/mL Normal 9-82 [facility] Comment on above: Performed By: #### C K, CKMB, REINALDO, CMP, BNP, HSTROPN ####[facility] [address] [place] [address]Dr. Veena Hernández PROF 14(COMP METB)on 022 Albumin [Mass/Vol] 4.0 g/dL Normal 3.4-5.0 [facility] Comment on above: Performed By: #### C K, CKMB, REINALDO, CMP, BNP, HSTROPN #### [facility] [address] [place] [address] [address] Veena Hernández Albumin/Globulin [Mass ratio] 1.3 {ratio} Normal [facility] Comment on above: Performed By: #### C K, CKMB, REINALDO, CMP, BNP, HSTROPN #### [facility] [address] [place] [address] [address] Veena Hernández ALP [Catalytic activity/Vol] 69 U/L Normal 46-116 [facility] Comment on above: Performed By: #### C K, CKMB, REINALDO, CMP, BNP, HSTROPN #### [facility] [address] [place] [address] [address] Veena Hernández ALT [Catalytic activity/Vol] 15 U/L Normal 14-59 [facility] Comment on above: Performed By: #### C K, CKMB, REINALDO, CMP, BNP, HSTROPN #### [facility] [address] [place] [address] [address] Veena Hernández Anion gap [Moles/Vol] 7.4 mmol/L Normal [facility] Comment on above: Performed By: #### C K, CKMB, REINALDO, CMP, BNP, HSTROPN #### [facility] [address] [place] [address] [address] Veena Hernández AST [Catalytic activity/Vol] 14 U/L Critically low 15-37 [facility] Comment on above: Performed By: #### C K, CKMB, REINALDO, CMP, BNP, HSTROPN #### [facility] [address] [place] [address] Dr. Veena Hernández Bilirubin [Mass/Vol] 1.9 mg/dL Critically high 0.2-1.0 [facility] Comment on above: Performed By: #### C K, CKMB, REINALDO, CMP, BNP, HSTROPN #### [facility] [address] [place] [address] [address] Veena Hernández Calcium [Mass/Vol] 9.4 mg/dL Normal 8.5-10.1 [facility] Comment on above: Performed By: #### C K, CKMB, REINALDO, CMP, BNP, HSTROPN #### [facility] [address] [place] [address] Dr. Veena Hernández Chloride [Moles/Vol] 106 mmol/L Normal 98-107 [facility] Comment on above: Performed By: #### C K, CKMB, REINALDO, CMP, BNP, HSTROPN #### [facility] [address] [place] [address] Dr. Veena Hernández CO2 [Moles/Vol] 32.3 mmol/L Critically high 21.0-32.0 [facility] Comment on above: Performed By: #### C K, CKMB, REINALDO, CMP, BNP, HSTROPN #### [facility] [address] [place] [address] [address] Veena Hernández Creatinine [Mass/Vol] 0.80 mg/dL Normal 0.55-1.02 [facility] Comment on above: Performed By: #### C K, CKMB, REINALDO, CMP, BNP, HSTROPN #### [facility] [address] [place] [address] [address] Veena Hernández EGFR-AF GUINEAN >60 Normal >=60 [facility] Comment on above: Performed By: #### C K, CKMB, REINALDO, CMP, BNP, HSTROPN #### [facility] [address] [place] [address] Dr. Veena Hernández EGFR-NON AF GUINEAN >60 Normal >=60 [facility] Comment on above: Performed By: #### C K, CKMB, REINALDO, CMP, BNP, HSTROPN #### [facility] [address] [place] [address] Dr. Veena Hernández Globulin (S) [Mass/Vol] 3.2 g/dL Normal [facility] Comment on above: Performed By: #### C K, CKMB, REINALDO, CMP, BNP, HSTROPN #### [facility] [address] [place] [address] Dr. Veena Hernández Glucose [Mass/Vol] 98 mg/dL Normal 74-106 [facility] [place] Comment on above: Performed By: #### C K, CKMB, REINALDO, CMP, BNP, HSTROPN #### [facility] [address] [place] [address] Dr. Veena Hernández Potassium [Moles/Vol] 3.7 mmol/L Normal 3.5-5.1 [facility] Comment on above: Performed By: #### C K, CKMB, REINALDO, CMP, BNP, HSTROPN #### [facility] [address] [place] [address] Dr. Veena Hernández Protein [Mass/Vol] 7.2 g/dL Normal 6.4-8.2 [facility] [place] Comment on above: Performed By: #### C K, CKMB, REINALDO, CMP, BNP, HSTROPN #### [facility] [address] [place] [address] [address] Veena Hernández Sodium [Moles/Vol] 142 mmol/L Normal 136-145 [facility] [place] Comment on above: Performed By: #### C K, CKMB, REINALDO, CMP, BNP, HSTROPN #### [facility] [address] [place] [address] [address] Veena Hernández Urea nitrogen [Mass/Vol] 11.0 mg/dL Normal 7.0-18.0 [facility] Comment on above: Performed By: #### C K, CKMB, REINALDO, CMP, BNP, HSTROPN #### [facility] [address] [place] [address] [address] Veena Hernández Urea nitrogen/Creatinine [Mass ratio] 13.8 mg/mg Normal [facility] Comment on above: Performed By: #### C K, CKMB, REINALDO, CMP, BNP, HSTROPN #### [facility] [address] [place] [address] [address] Veena Hernández TROPONIN, HIGH SENSITIVITYon 08-01-2022 HSTROP 5.0 pg/mL Normal 4.0-51.3 [facility] Comment on above: Result Comment: CUT- OFF POINTS HAVE BEEN ESTABLISHED BASED ON THE FOURTH UNIVERSAL DEFINITIONS OF MYOCARDIAL INFARCTION. THE UPPER REFERENCE LIMIT (URL) OF TROPONIN, DEFINED THE 99TH PERCENTILE OF cTnI DISTRIBUTION IN A REFERENCE POPULATION, HAS BEEN CONFIRMED THE DECISION THRESHOLD FOR [place] DIAGNOSIS. Performed By: #### C K, CKMB, REINALDO, CMP, BNP, HSTROPN #### [facility] [address] [place] [address] [address] Veena Hernández XR CHEST 2 Von [...] by: ALEX SOLANO Date: 2022-08-01 10:19 Normal [facility] XR LSPINE 2_3 VIEWSon 2021 XR LSPINE [...] by: CARLOS KEMP Date: 2022-07-12 19:26 Normal [facility] XR HIP RT INJon 04-03-2022 XR HIP [...] by: ALEX SOLANO Date: 2022-04-03 09:18 Normal [facility] Vital Signs Date Time Vital Sign Value Performing Clinician Fady curtis 03-11-2025 11:18-0400 Body height 154.9 cm Dave Ambrocio DPM Work Phone: [facility] 03-11-2025 11:18-0400 Body mass index (BMI) [Ratio] 30.8 kg/m2 Daveandreas Ambrocio DPM Work Phone: [facility] 03-11-2025 11:18-0400 Body weight 73.94 kg Dave Cristóbal DPM Work Phone: [facility] 03-11-2025 11:18-0400 Respiratory rate 18 /min Dave Cristóbal DPM Work Phone: [facility] 02-24-2025 09:39-0400 Body mass index (BMI) [Ratio] 30.91 kg/m2 Evelynmitzi Tariq CORRECTIONAL OFFICER Work Phone: [facility] 02-24-2025 09:39-0400 Body temperature 98.6 [degF] Evelyn Loreez CORRECTIONAL OFFICER Work Phone: [facility] 02-24-2025 09:39-0400 Body weight 74.21 kg Evelyn Loreez CORRECTIONAL OFFICER Work Phone: [facility] 02-24-2025 09:39-0400 Diastolic blood pressure 88 mm[Hg] Evelyn Loreez CORRECTIONAL OFFICER Work Phone: [facility] 02-24-2025 09:39-0400 Heart rate 78 /min Evelyn Toshiahholz CORRECTIONAL OFFICER Work Phone: [facility] 02-24-2025 09:39-0400 Respiratory rate 18 /min Evelyn Aichholz CORRECTIONAL OFFICER Work Phone: [facility] 02-24-2025 09:39-0400 SaO2% (BldA) [Mass fraction] 97 % Evelny Loreez CORRECTIONAL OFFICER Work Phone: [facility] 02-24-2025 09:39-0400 Systolic blood pressure 138 mm[Hg] Evelyn Tariq CORRECTIONAL OFFICER Work Phone: [facility] 12-31-2024 11:53-0400 Body height 154.9 cm Dave Ambrocio DPM Work Phone: [facility] 12-31-2024 11:53-0400 Body mass index (BMI) [Ratio] 27.4 kg/m2 Dave Ambrocio DPM Work Phone: [facility] 12-31-2024 11:53-0400 Body weight 65.77 kg Dave Ambrocio DPM Work Phone: [facility] 12-31-2024 11:53-0400 Respiratory rate 18 /min Dave Ambrocio DPM Work Phone: [facility] 10-12-2024 09:52-0500 Body height 154.9 cm Dominique Urbano CORRECTIONAL OFFICER Work Phone: [facility] 10-12-2024 09:52-0500 Body mass index (BMI) [Ratio] 27.21 kg/m2 Dominique Urbano CORRECTIONAL OFFICER Work Phone: [facility] 10-12-2024 09:52-0500 Body temperature 97.2 [degF] Dominique Urbano CORRECTIONAL OFFICER Work Phone: [facility] 10-12-2024 09:52-0500 Body weight 65.32 kg Dominique Urbano CORRECTIONAL OFFICER Work Phone: [facility] 10-12-2024 09:52-0500 Diastolic blood pressure 74 mm[Hg] Dominique Urbano CORRECTIONAL OFFICER Work Phone: [facility] 10-12-2024 09:52-0500 Heart rate 80 /min Dominique Urbano CORRECTIONAL OFFICER Work Phone: [facility] 10-12-2024 09:52-0500 Respiratory rate 16 /min Dominique Urbano CORRECTIONAL OFFICER Work Phone: [facility] 10-12-2024 09:52-0500 SaO2% (BldA) [Mass fraction] 98 % Dominique Urbano CORRECTIONAL OFFICER Work Phone: [facility] 10-12-2024 09:52-0500 Systolic blood pressure 132 mm[Hg] Dominique Yolie CORRECTIONAL OFFICER Work Phone: [facility] Encounters Encounter Date Encounter Type Care Provider Facility Start: 03-24-2025 End: 03-24-2025 Refill Evelyn Tariq CORRECTIONAL OFFICER Work Phone: [facility] Comment on above: Mild intermittent as thma with status asthmaticus (HCC) Start: 03-11-2025 End: 03-11-2025 Bamboo flowsheet Dave Ambrocio DPM Work Phone: [facility] Start: 03-11-2025 End: 03-11-2025 Bamboo flowsheet Dave Ambrocio DPM Work Phone: [facility] Start: 03-11-2025 End: 03-11-2025 Patient encounter procedure Dave Ambrocio DPM Work Phone: [facility] Comment on above: Pain due to onychomy cosis of toenails of both feet (Primary Dx); Venous insufficiency Start: 03-11-2025 End: 03-11-2025 ambulatory DAVE AMBROCIO Not Available Start: 03-09-2025 End: 03-09-2025 Clinisync Result Encounter Evelyn Tariq CORRECTIONAL OFFICER Work Phone: [facility] Unsolicited Start: 03-09-2025 End: 03-09-2025 Clinisync Result Encounter Evelyn Tariq CORRECTIONAL OFFICER Work Phone: [facility] Unsolicited Start: 02-25-2025 End: 02-25-2025 Clinisync Result Encounter Evelyn Tariq CORRECTIONAL OFFICER Work Phone: [facility] External Department Unsolicited Start: 02-25-2025 End: 02-25-2025 Clinisync Result Encounter Evelyn Tariq NP Work Phone: [facility] Unsolicited Start: 02-24-2025 End: 02-24-2025 Patient encounter procedure Evelyn Chandni CORRECTIONAL OFFICER Work Phone: [facility] Comment on above: Encounter for subseq uent annual wellness visit (AWV) in Medicare patient (Primary Dx); 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); Primary hypertension (CMS/HCC); B12 deficiency; Hypothyroidism, unspecified type (CMS/HCC); Mixed hyperlipidemia (CMS/HCC); Screening mammogram, encounter for; Colon cancer screening declined; Dyslipidemia (CMS/HCC) Start: 02-24-2025 End: 02-24-2025 Refill Evelyn Tariq CORRECTIONAL OFFICER Work Phone: [facility] Comment on above: Mild intermittent as thma with status asthmaticus (CMS/HCC) Start: 02-03-2025 End: 02-03-2025 Refill Evelyn Tariq CORRECTIONAL OFFICER Work Phone: [facility] Comment on above: Mild intermittent as thma with status asthmaticus (CMS/HCC) Start: 01-04-2025 End: 01-05-2025 Refill Evelyn Tariq CORRECTIONAL OFFICER Work Phone: [facility] Comment on above: Primary [...] Start: 11-05-2024 End: 11-05-2024 Refill Dominique Barnestrick CORRECTIONAL OFFICER Work Phone: [facility] Comment on above: 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) Start: 10-12-2024 End: 10-12-2024 Bamboo flowsheet Dominique Urbano CORRECTIONAL OFFICER Work Phone: [facility] Start: 10-12-2024 End: 10-12-2024 Bamboo flowsheet Dominique Urbano CORRECTIONAL OFFICER Work Phone: [facility] Start: 10-12-2024 End: 10-12-2024 Office outpatient visit 15 minutes Dominique Barnestrick CORRECTIONAL OFFICER Work Phone: [facility] Comment on above: COVID-19 (Primary Dx ); Dyslipidemia (CMS/HCC); Primary hypertension (CMS/HCC) Start: 10-12-2024 End: 10-12-2024 ambulatory DOMINIQUE URBANO Not Available Start: 09-29-2024 End: 09-29-2024 Orders Only Dominique Urbano CORRECTIONAL OFFICER Work Phone: [facility] Comment on above: 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) (Primary Dx) Start: 08-08-2024 End: 08-08-2024 ambulatory [facility] Start: 08-05-2024 End: 08-05-2024 ambulatory [facility] Start: 07-23-2024 End: 07-23-2024 ambulatory AISLINN LOGAN [facility] Start: 06-15-2024 End: 06-15-2024 Refmerlyn Urbano NP Work Phone: [facility] Comment on above: Primary hypertension (CMS/HCC) Start: 04-14-2024 End: 04-14-2024 ambulatory SHAIKH NATALIA Not Available Start: 10-16-2023 End: 10-16-2023 ambulatory LONI BRITT [facility] Start: 09-26-2023 End: 09-26-2023 ambulatory JORGE LADD [facility] Start: 09-03-2023 End: 09-03-2023 ambulatory Shaikh Natalia Facility:[facility] Start: 09-03-2023 End: 09-03-2023 ambulatory MD Shaikh Fisher Work Phone: [facility] Work Phone: Start: 09-03-2023 End: 09-03-2023 Patient encounter procedure MD Shaikh Fisher Work Phone: [facility] [place] Work Phone: Start: 12-20-2022 End: 12-20-[address] GEOFFREY Portillo Facility:[facility] Start: 10-16-2022 End: 10-31-2022 ambulatory BONILLA Deon NAVARROD Facility:[facility] Start: 09-16-2022 End: 09-17-2022 ambulatory BONILLA H FAWWAD Facility:[facility] Start: 09-06-2022 End: 09-15-2022 ambulatory SHAIKH Deon FISHER Facility:[facility] Start: 09-04-2022 End: 09-05-[address] ALEX SOLANO Facility:[facility] Start: 08-29-2022 End: 08-30-2022 ambulatory NEIDA TARIQ Facility:[facility] Start: 08-01-2022 End: 08-02-2022 ambulatory JAVA SOFTWARE ENGINEER EVELYN TARIQ Facility:[facility] Start: 07-12-2022 End: 07-13-2022 ambulatory SHAIKH Deon FISHER Facility:[facility] Start: 04-03-2022 End: 04-03-[address] MIRELLA GUEVARA Facility:[facility] Procedures Date Procedure Procedure Detail Performing Clinician Start: 03-09-2025 End: 03-09-2025 Screening mammography bi 2-view breast inc cad Evelyn Tariq CORRECTIONAL OFFICER Work Phone: Start: 02-25-2025 TBH UA (CLEAN/CATCH) MICROSCOPIC IF INDICATE Evelyn Tariq CORRECTIONAL OFFICER Work Phone: Start: 08-27-2023 Mammography Dominique F giselle CORRECTIONAL OFFICER Work Phone: Plan of Treatment Date Care Activity Detail Author Start: 03-09-2026 Screening for malign ant neoplasm of breast Mammogram [facility] Start: 03-01-2026 End: 03-01-2026 Patient encounter procedure 03/01/2026 10:30 AM EDT Office Visit [facility] [address] [place] [phone] Evelyn Tariq NP [address] [place] [id number] [facility] Start: 02-24-2026 Screening for malign ant neoplasm of colon Colorectal Cancer Screening [facility] Comment on above: Postponed from 01/07 (Patient Refused) Start: 05-31-2025 End: 05-31-2025 Patient encounter procedure 05/31/2025 9:40 AM EDT Office Visit [facility] [address] [place] [address] Evelyn Tariq NP [address] [place] [id number] [facility] Start: 05-20-2025 End: 05-20-2025 Patient encounter procedure 05/20/2025 11:20 AM EDT Procedure Visit [facility] [address] [place] [phone] Dave Ambrocio, [place] [address] [address] [facility] Start: 05-17-2025 Influenza vaccination Influenza Vacc ine (#1) [facility] Start: 03-11-2025 End: 03-11-2025 Patient encounter procedure [facility] Comment on above: Pain due to onychomy cosis of toenails of both feet (Primary Dx); Venous insufficiency Start: 02-24-2025 End: 02-24-2026 CBC W Auto Differential panel - Blood CBC and differential Lab Routine 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) B12 deficiency Hypothyroidism, unspecified type (CMS/HCC) Expected: 02/24/2025 (Approximate), Expires: 02/24/2026 [facility] Work Phone: Comment on above: Expected: 02/24/2025 (Approximate), Expires: 02/24/2026 Start: 02-24-2025 End: 02-24-2026 Cobalamin (Vitamin B12) [Mass/volume] in Serum or Plasma Vitamin B12 Lab Routine 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) B12 deficiency Expected: 02/24/2025 (Approximate), Expires: 02/24/2026 [facility] Comment on above: Expected: 02/24/2025 (Approximate), Expires: 02/24/2026 Start: 02-24-2025 End: 02-24-2026 Comprehensive metabolic 2000 panel - Serum or Plasma Comprehensive metabolic panel Lab Routine Primary hypertension (CMS/HCC) Mixed hyperlipidemia (CMS/HCC) Expected: 02/24/2025 (Approximate), Expires: 02/24/2026 [facility] Comment on above: Expected: 02/24/2025 (Approximate), Expires: 02/24/2026 Start: 02-24-2025 End: 02-24-2026 Lipid 1996 panel - Serum or Plasma Lipid panel Lab Routine Mixed hyperlipidemia (CMS/HCC) Expected: 02/24/2025 (Approximate), Expires: 02/24/2026 [facility] [facility] Comment on above: Expected: 02/24/2025 (Approximate), Expires: 02/24/2026 Start: 02-24-2025 End: 04-26-2026 MG Breast - bilateral Screening Bilateral screening mammogram Imaging Routine Screening mammogram, encounter for Expected: 02/24/2025 (Approximate), Expires: 04/26/2026 [facility] Comment on above: Expected: 02/24/2025 (Approximate), Expires: 04/26/2026 Start: 02-24-2025 End: 02-24-2026 Microalbumin/Creatinine panel in random Urine Microalbumin / creatinine, urine ratio Lab Routine Primary hypertension (CMS/HCC) Expected: 02/24/2025 (Approximate), Expires: 02/24/2026 [facility] Comment on above: Expected: 02/24/2025 (Approximate), Expires: 02/24/2026 Start: 02-24-2025 End: 02-24-2026 Thyrotropin [Units/volume] in Serum or Plasma TSH Lab Routine Hypothyroidism, unspecified type (CMS/HCC) Expected: 02/24/2025 (Approximate), Expires: 02/24/2026 [facility] Comment on above: Expected: 02/24/2025 (Approximate), Expires: 02/24/2026 Start: 02-24-2025 End: 02-24-2026 Thyroxine (T4) free [Mass/volume] in Serum or Plasma T4, free Lab Routine Hypothyroidism, unspecified type (CMS/HCC) Expected: 02/24/2025 (Approximate), Expires: 02/24/2026 [facility] Comment on above: Expected: 02/24/2025 (Approximate), Expires: 02/24/2026 Start: 02-24-2025 End: 02-24-2026 Urinalysis complete panel - Urine Urinalysis with reflex microscopic (clean catch) Lab Routine Primary hypertension (CMS/HCC) Expected: 02/24/2025 (Approximate), Expires: 02/24/2026 [facility] Comment on above: Expected: 02/24/2025 (Approximate), Expires: 02/24/2026 Start: 02-24-2025 End: 02-24-2025 Patient encounter procedure 02/24/2025 10:00 AM EDT Office Visit [facility] [address] [place] [address] Evelyn Tariq, AJIT [address] [place] [address] [facility] Start: 01-05-2025 Medicare Annual Wellness (AWV) Medicare Annual Wellness (AWV) [facility] Start: 12-31-2024 End: 12-31-2024 Patient encounter procedure 12/31/2024 11:30 AM EDT Office Visit [facility] [address] [address] [place] [phone] Dave Ambrocio, DP [address] [address] [facility] Start: 11-24-2024 End: 11-24-2024 Patient encounter procedure 11/24/2024 9:20 AM EDT Office Visit [facility] [address] [place] [address] Evelyn Tariq, AJIT [address] [place] [address] [facility] Start: 11-16-2024 End: 11-16-2024 Patient encounter procedure 11/16/2024 10:00 AM EST Office Visit [facility] [address] [place] [address] Dominique Urbano NP [address] [place] [address] [facility] Start: 10-12-2024 End: 10-12-2024 Patient encounter procedure 10/12/2024 10:00 AM EST Office Visit [facility] [address] [place] [address] Dominique Urbano NP [address] [place] [address] Arrived [facility] Comment on above: Arrived Start: 08-27-2024 Screening for malign ant neoplasm of breast Mammogram [facility] Start: 08-17-2024 End: 08-17-2024 Patient encounter procedure 08/17/2024 10:30 AM EST Office Visit [facility] [address] [place] [address] Dominique Urbano NP [address] [place] [address] [facility] Start: 05-17-2024 Influenza vaccination Influenza Vacc ine (#1) [facility] Start: 09-16-2023 Screening for malign ant neoplasm of colon [facility] Start: 07-16-2009 Pneumococcal Vaccine : 65+ Years (2 of 2 - PCV) Pneumococcal Vaccine: 65+ Years (2 of 2 - PCV) [facility] Start: 1950 Screening for malign ant neoplasm of colon [facility] Immunizations Immunization Date Immunization Notes Care Provider Fa cility 12-02-2024 Pneumococcal Conjuga te PCV 20 Evelyn Tariq CORRECTIONAL OFFICER Work Phone: [facility] 12-02-2024 tetanus toxoid, redu kirby diphtheria toxoid, and acellular pertussis vaccine, adsorbed Evelyn Chandni CORRECTIONAL OFFICER Work Phone: [facility] 12-02-2024 zoster vaccine recombinant Evelyn Chandni CORRECTIONAL OFFICER Work Phone: [facility] 07-11-2024 influenza, high dose seasonal, preservative-free Dave Ambrocio DPM Work Phone: [facility] 07-11-2024 SARS-COV-2 (COVID-19 ) vaccine, mRNA, spike protein, LNP, PF, kristi-sucrose, 30 mcg/0.3 mL Dave Ambrocio DPM Work Phone: [facility] 07-11-2024 influenza virus vacc ine, unspecified formulation Evelyn Piñaclaracarlos CORRECTIONAL OFFICER Work Phone: [facility] 07-13-2023 Influenza, High-dose Seasonal, Quadrivalent, Preservative Free Dave Ambrocio DPM Work Phone: [facility] 07-13-2023 influenza virus vacc ine, unspecified formulation Dominique Keenank CORRECTIONAL OFFICER Work Phone: [facility] 09-02-2015 zoster vaccine, live Brittan y Urbano CORRECTIONAL OFFICER Work Phone: [facility] 09-14-2014 influenza, injectabl e, quadrivalent, contains preservative Dave Ambrocio DPM Work Phone: [facility] 07-16-2008 pneumococcal polysaccharide vaccine, 23 valent Dominique Barnestrick CORRECTIONAL OFFICER Work Phone: [facility] Payers Date Payer Category Payer Medicare (Managed Care) [employer] [id number] 2023 Unknown [employer] [id number] 2023-Present [address] [place] [address] [id number] 2023 Medicare [id number] 2023 Self-pay 1959 Unknown [id number] 1959 Unknown [id number] 1952 Unknown [id number] 2.16.840.1.081889.3.579. 2.593 1952 Unknown [id number] 2.16.840.1.641744.3.579. 2.593 1952 Unknown [id number] 2.16.840.1.628567.3.579. 2.593 1952 Unknown [id number] 2.16.840.1.697847.3.579. 2.593 1952 Unknown [id number] 2.16.840.1.514615.3.579. 2.593 1952 Unknown [id number] 2.16.840.1.923403.3.579. 2.593 1952 Unknown [id number] 2.16.840.1.410430.3.579. 2.593 1952 Unknown [id number] 2.16.840.1.133109.3.579. 2.593 1952 Unknown [id number] 2.16.840.1.061090.3.579. 2.593 1952 Unknown [id number] 2.16.840.1.402046.3.579. 2.1286 1952 Unknown [id number] 2.16.840.1.462215.3.579. 2.128 1952 Unknown [id number] 2.16.840.1.244904.3.579. 2.128 1952 Unknown [id number] 2.16.840.1.805415.3.579. 2.128 1952 Unknown [id number] 2.16.840.1.593836.3.579. 2.128 1952 Unknown [id number] 2.16.840.1.357602.3.579. 2.1285 1952 Unknown [id number] 2.16.840.1.151993.3.579. 2.1259 1952 Unknown [id number] 2.16.840.1.761481.3.579. 2.9 1952 Unknown [id number] 2.16.840.1.688497.3.579. 2.125 1952 Unknown [id number] 2.16.840.1.781952.3.579. 2.9 1952 Unknown [id number] 2.16.840.1.761671.3.579. 2.1258 1952 Unknown [id number] 2.16.840.1.610303.3.579. 2.1259 Medicare Medicare [id number] Unknown [id number] 2..840.1.333108.3.579. 2.531 Social History Date Type Detail Facility Tobacco smoking stat [facility] Unknown if ever smoked [facility] Work Phone: Start: 1950 Sex Assigned At Female F [facility] Start: 01-06-2024 Tobacco smoking stat [facility] Never smoked tobacco [facility] Start: [...] got money to buy more. Never true [facility] Start: 1950 Sex assigned at Not on file [facility] NEGATED: Highlighted rowStart: NINF History of tobacco use Passive smoker [facility] Functional Status Date Assessment Result Facility 02-24-2025 Patient Health [facility] ionnaire 2 item (PHQ-2) [Reported] [facility] Clinical Notes 11-10-2021 to 03-11-2025 Dave Ambrocio DPM - 03/11/2025 11:30 AM EDAlanis Tariq, CORRECTIONAL OFFICER - 02/24/2025 10:00 AM Jj Tariq, CORRECTIONAL OFFICER - 02/24/2025 6:32 AM Jj Tariq, AJIT [...] not see ENT due to Dr Molina half-way. Mild cognitive impairment with memory loss Mild [...] 0 min Stress: Stress Concern Present (08/12/2023) [employer] [place] [employer] - Occupational Stress Questionnaire Feeling of Stress : Very much Social Connections: Moderately Integrated (08/12/2023) Social Connection and Isolation Panel [NHANES] Frequency of Communication with Friends and Family: More than three times a week Frequency of Social Gatherings with Friends and Family: More than three times a week Attends Yazdanism Services: 1 to 4 times per year [...] Dave Ambrocio DPM documented in this encounter [facility] 02-24-2025 History of Presen t illness Narrative [...] Diagnosis Date Asthma Chest pain Chronic depression ([facility]) ; Was poorly controlled and was previously started on bupropion Tolerating it without adverse effects Dyspnea Family history of heart disease Hypertension ([facility]) Hypothyroidism, adult ([facility]) was previously treated with 25 mcg [...] not see ENT due to Dr Molina half-way. Mild cognitive impairment with memory loss Mild cognitive impairment. Chronic, gradual. Problems with recent memory. Mild intermittent asthma with status asthmaticus ([facility]) patient reports using albuterol inhaler and albuterol [...] are going well documented in this encounter [facility] 02-24-2025 Instructions Evelyn Tariq NP - 02/24/2025 10:00 AM EDT Mammogram I will fax over to [facility]: they should call you for this [phone] Labs: fasting documented in this encounter [facility] 01-04-2025 Telephone encounter Note Mirtazapine 7.5 mg once at night. I didn't see this one listed. PAUL [facility] 01-04-2025 Miscellaneous Notes Mirtazapine 7.5 mg once at night. I didn't see this one listed. PAUL documented in this encounter [facility] 12-31-2024 History of Presen t illness Narrative [...] not see ENT due to Dr Molina half-way. Mild cognitive impairment with memory loss Mild [...] 0 min Stress: Stress Concern Present (08/12/2023) [employer] [place] [employer] - Occupational Stress Questionnaire Feeling of Stress : Very much Social Connections: Moderately Integrated (08/12/2023) Social Connection and Isolation Panel [NHANES] Frequency of Communication with Friends and Family: More than three times a week Frequency of Social Gatherings with Friends and Family: More than three times a week Attends Yazdanism Services: 1 to 4 times per year [...] edema. Discussed condition in detail. Recommendation for [id number] compression stockings at this time and may consider prescription stockings in the future. Dave Ambrocio DPM documented in this encounter [facility] 10-12-2024 History of Presen t illness Narrative [...] breath/chest pain/ear pain/dizziness/N/V/D. documented in this encounter [facility] 10-12-2024 Instructions Dominique Urbano NP - 10/12/2024 [...] documented in this encounter [facility] 11-10-2021 Note PROCEDURE: [employer] HDXT 1.5 Sagittal T1, T2, STIR [...] signed by Michael Cristina on 11/10/[address] [facility] [employer] Service Executive Evaluation note No assessment inform ation available [facility] Work Phone: Evaluation note Diagnosis Primary hypertension [...] disturbance (CMS/HCC)- Primary documented in this encounter [facility] HealthcareEvaluation note* Diagnosis Mild intermittent [...] Unspecified essential hypertension documented in this encounter [facility] HealthcareEvaluation note* Diagnosis Mild intermittent [...] of both feet documented in this encounter [facility] Healthcare[facility]* Diagnosis Mild intermittent asthma [...] major depressive disorder, in partial remission (HCC) ([facility]/HCC) Screening mammogram, encounter for Primary hypertension (CMS/HCC) [...] section and content) DATE CREATED AUTHOR 11/11/2021 [facility] DATE CREATED AUTHOR AUTHOR'S ORGANIZ ATION 12/21/2022 [facility] DATE CREATED AUTHOR AUTHOR'S ORGANIZ ATION 09/08/2023 [facility] DATE CREATED AUTHOR AUTHOR'S ORGANIZ ATION 10/20/2023 [facility] DATE CREATED AUTHOR AUTHOR'S ORGANIZ ATION 08/11/2024 [facility] DATE CREATED AUTHOR AUTHOR'S ORGANIZ ATION 03/12/2025 [facility] EPIC Care Teams (unrecognized sec tion and content) Team Status: Active Member Role Status Dates Shaikh Natalia MD Primary Care Provider Active Team Status: Inactive Member Role Status Dates Shaikh Natalia MD Primary Care Provider Active Jorge Ladd DO Attending Provider Active Containers Sales Representative Relationship Specialty Start Date End Date Shaikh Fisher MD [address] [place] [address] PCP - Devoted 09/16/23 Navneet Vanegas MD [address] [place] [address] PCP - General Family Medicine 05/26/24 Dominique Urbano NP [address] [place] [address] Nurse Practitioner Family Medicine 05/26/24 [employer]ainers Sales Representative Relationship Specialty Start Date End Date Shaikh Fisher MD [address] [place] [address] PCP - Devoted 09/16/23 Navneet Vanegas MD [address] [place] [address] PCP - General Family Medicine 05/26/24 Dominique Urbano NP [address] [place] [address] Nurse Practitioner Family Medicine 05/26/24 [employer]ainers Sales Representative Relationship Specialty Start Date End Date Shaikh Fisher MD [address] [place] [address] PCP - Devoted 09/16/23 Qi Andrade MD [address] [place] [address] PCP - General Family Medicine 10/06/24 Dominique Urbano NP [address] [place] [address] Nurse Practitioner Family Medicine 05/26/24 [employer]ainers Sales Representative Relationship Specialty Start Date End Date Shaikh Fisher MD [address] [place] [address] PCP - Devoted 09/16/23 Qi Andrade MD [address] [place] [address] PCP - General Family Medicine 10/06/24 Dominique Urbano NP [address] [place] [address] Nurse Practitioner Family Medicine 05/26/24 Containers Sales Representative Relationship Specialty Start Date End Date Shaikh Fisher MD [address] [place] [address] PCP - Devoted 09/16/23 Qi Andrade MD [address] [place] [address] PCP - General Family Medicine 10/06/24 Dominique Urbano NP [address] [place] [address] Nurse Practitioner Family Medicine 05/26/24 Containers Sales Representative Relationship Specialty Start Date End Date Shaikh Fisher MD [address] [place] [address] PCP - Devoted 09/16/23 Qi Andrade MD [address] [facility] [place] [address] PCP - General Family Medicine 10/06/24 Dominique Urbano, AJIT [address] [place] [address] Nurse Practitioner Family Medicine 05/26/24 Containers Sales Representative Relationship Specialty Start Date End Date Shaikh Fisher MD [address] [place] [address] PCP - Devoted 09/16/23 Qi Andrade MD [address] [facility] [place] [address] PCP - General Family Medicine 10/06/24 Dominique Urbano, AJIT [address] [place] [address] Nurse Practitioner Family Medicine 05/26/24 Containers Sales Representative Relationship Specialty Start Date End Date Shaikh Fisher MD [address] [place] [address] PCP - Devoted 09/16/23 Qi Andrade MD [address] [facility] [place] [address] PCP - General Family Medicine 10/06/24 Dominique Urbano, AJIT [address] [place] [address] Nurse Practitioner Family Medicine 05/26/24 Containers Sales Representative Relationship Specialty Start Date End Date Shaikh Fisher MD [address] [place] [address] PCP - Devoted 09/16/23 Qi Andrade MD [address] [place] [address] PCP - General Family Medicine 10/06/24 Dominique Urbano NP [address] [place] [address] Nurse Practitioner Family Medicine 05/26/24 Containers Sales Representative Relationship Specialty Start Date End Date Shaikh Fisher MD [address] [place] [address] PCP - Devoted 09/16/23 Navneet Vanegas MD [address] [place] [address] PCP - General Family Medicine 02/23/25 Dominique Urbano NP [address] [place] [address] Nurse Practitioner Family Medicine 05/26/24 Evelyn Tariq NP [address] [place] [address] Nurse Practitioner Family Medicine 02/23/25 Containers Sales Representative Relationship Specialty Start Date End Date Shaikh Fisher MD [address] [place] [address] PCP - Devoted 09/16/23 Navneet Vanegas MD [address] [place] [address] PCP - General Family Medicine 02/23/25 Dominique Urbano NP [address] [place] [address] Nurse Practitioner Family Medicine 05/26/24 Evelyn Tariq NP [address] [place] [address] Nurse Practitioner Family Medicine 02/23/25 Containers Sales Representative Relationship Specialty Start Date End Date Shaikh Fisher MD [address] [place] [address] PCP - Devoted 09/16/23 Navneet Vanegas MD [address] [place] [address] PCP - General Family Medicine 02/23/25 Dominique Urbano NP [address] [place] [address] Nurse Practitioner Family Medicine 05/26/24 Evelyn Tariq NP [address] [place] [address] Nurse Practitioner Family Medicine 02/23/25 Containers Sales Representative Relationship Specialty Start Date End Date Shaikh Fisher MD [address] [place] [address] PCP - Devoted 09/16/23 Navneet Vanegas MD [address] [place] [address] PCP - General Family Medicine 02/23/25 Dominique Urbano NP [address] [place] [address] Nurse Practitioner Family Medicine 05/26/24 Evelyn Tariq NP [address] [place] [address] Nurse Practitioner Family Medicine 02/23/25 Containers Sales Representative Relationship Specialty Start Date End Date Shaikh Fisher MD [address] [place] [address] PCP - Devoted 09/16/23 Navneet Vanegas MD [address] [place] [address] PCP - General Family Medicine 02/23/25 Dominique Urbano NP [address] [place] [address] Nurse Practitioner Family Medicine 05/26/24 Evelyn Tariq NP [address] [place] [address] Nurse Practitioner Family Medicine 02/23/25 Goals (unrecognized [...] BE BASED ON THE PRIMARY CLINICAL RECORDS. [facility] [employer] provides no warranty or guarantee of the accuracy or completeness of information in this document.
--- NOTE | 2025-05-07 00:30 | ED.CHESTPAI1 ---
HPI - Chest Pain General Chief Complaint: Chest Pain Stated Complaint: CHEST PAINS Time Seen by Provider: 05/06/25 23:57 Source: patient Mode of arrival: Wheelchair Limitations: no limitations History of Present Illness HPI narrative: This 75-year-old female with a history of dementia with anxiety is brought to the emergency department by her . Earlier this evening she told her to call her son to bring her to the hospital. Her told her that if she needed to come to the hospital that he would bring her. She then agreed to come to the hospital. She states that she felt like something was wrong. She thinks she had pain in her chest. While waiting to come back to her room she told her that she wanted to go home. She is not currently having any pain. She has not had any fever. She has not had any cough. She has no lower extremity pain or swelling. She does not have a history of any cardiac disease. She has no abdominal pain nausea or vomiting. Related Data Home Medications ?Medication ?Instructions ?Recorded ?Confirmed atorvastatin 20 mg tablet 20 mg PO DAILY 06/30/24 05/06/25 losartan 50 mg tablet 50 mg PO DAILY 06/30/24 05/06/25 quetiapine 25 mg tablet 25 mg PO BEDTIME 06/30/24 05/06/25 mirtazapine 7.5 mg tablet 7.5 mg PO .every night 10/02/24 05/06/25 risperidone 0.5 mg tablet 0.5 mg PO BID 10/02/24 05/06/25 albuterol sulfate 90 mcg/actuation inhalation 05/06/25 aerosol inhaler Previous Rx's ?Medication ?Instructions ?Recorded acetaminophen 650 mg 650 mg PO Q8H PRN fever or pain 10/02/24 tablet,extended release (Tylenol 8 #20 tabs Hour) Allergies Allergy/AdvReac Type Severity Reaction Status Date / Time No Known Drug Allergies Allergy Verified 05/06/25 22:05 Review of Systems ROS Status of ROS 10 or more systems reviewed and unremarkable except as noted in history and below PFSH PFS Social History Little interest or pleasure in doing things: not at all Feeling down, depressed, or hopeless: not at all Exam Narrative Exam Narrative: Vital signs and Nursing Notes reviewed: Patient is afebrile with a normal pulse, blood pressure is elevated at 154/85, she is not hypoxic with pulse ox of 98% on room air General: Awake, alert, oriented to person and place, confused at baseline, no acute distress, lying comfortably on the stretcher HEENT: Normocephalic atraumatic, mucous membranes are moist and pink, eyes are clear, normal conjunctiva, vision is grossly intact, posterior pharynx is normal in appearance. Neck: Supple, no meningeal signs, no anterior or posterior cervical lymphadenopathy Chest: Lungs are clear to auscultation with good air entry, there is no wheezing rhonchi or rales appreciated no accessory muscle use, patient is speaking in complete sentences-no chest wall tenderness to palpation CVS: Regular rate and rhythm S1-S2, no murmurs rubs or gallops, pulses are brisk and equal bilaterally ABD: Soft, nondistended, nontender, no rebound guarding or rigidity, bowel sounds are normal, no pulsatile masses appreciated Extremities: Moving all extremities, no lower extremity tenderness or swelling noted, negative Homans' sign, pulses are brisk and equal bilaterally Skin: Normal in appearance without rash,pallor, petechiae or purpura Neuro: No focal deficits, memory loss, history of dementia Constitutional Vital Signs, click to edit/add: Last Vital Signs Pulse 67 05/07/25 01:13 Resp 18 05/06/25 22:01 BP 159/90 H 05/07/25 01:13 Pulse Ox 99 05/07/25 01:13 O2 Del Method Room Air 05/06/25 22:01 Course Vital Signs Vital signs: Vital Signs Pulse Rate 74 05/06/25 22:01 Respiratory Rate 18 05/06/25 22:01 Blood Pressure 154/85 H 05/06/25 22:01 Pulse Oximetry 98 05/06/25 22:01 Oxygen Delivery Method Room Air 05/06/25 22:01 Pulse Rate 67 05/07/25 01:13 Respiratory Rate 18 05/06/25 22:01 Blood Pressure 159/90 H 05/07/25 01:13 Pulse Oximetry 99 05/07/25 01:13 Oxygen Delivery Method Room Air 05/06/25 22:01 MDM - Chest Pain MDM Narrative Medical decision making narrative: This 75-year-old female with a history of dementia with anxiety is brought to the emergency department by her after she stated that she was not feeling well and complained of chest pain earlier in the evening. She has no complaints in the emergency department and while waiting to come back to her room she told her that she wanted to go home. It is unclear due to her history of dementia whether or not she is actually experiencing any chest pain. She was medicated with a dose of aspirin in the emergency department. Her physical exam is benign. She has a flat affect. EKG is a sinus rhythm at 73 bpm with no acute findings. Cardiac workup was ordered. Her white count is 5.7 with a stable hemoglobin of 11.2. Electrolytes are normal. Troponin is normal. Chest x-ray was reviewed by myself and does not show any acute infiltrate with normal mediastinum, normal cardiac borders. The patient was reevaluated. She has not had any complaints since being here for many hours. Is unclear whether or not she actually had chest pain or had an episode of anxiety. This was discussed with the patient and her . He verbalizes understanding. He will follow-up closely with the family physician and return the patient to the emergency department for any concerns. At this time she is stable for discharge. Heart score is difficult to ascertain due to the history of dementia. Lab Data Attestation: I reviewed the patient's lab results. Labs: Lab Results 05/07/25 Range/Units 00:20 WBC 5.7 (4.0-11.0) 10^3/uL RBC 3.44 L (4.20-5.40) 10^6/uL Hgb 11.2 L (12.0-16.0) g/dL Hct 34.1 L (36.0-48.0) % MCV 99.1 H (81.0-99.0) fL MCH 32.6 (26.7-34.0) pg MCHC 32.8 (29.9-35.2) g/dL RDW 13.5 (11.0-15.0) % Plt Count 235 (150-450) 10^3/uL MPV 10.1 (9.5-13.5) fL Neut % (Auto) 49.6 (43.0-75.0) % Lymph % (Auto) 32.6 (20.5-60.0) % [place] % (Auto) 13.7 H (1.7-12.0) % Eos % (Auto) 3.2 (0.9-7.0) % Baso % (Auto) 0.7 (0.2-2.0) % Neut # (Auto) 2.8 (1.4-6.5) 10^3/uL Lymph # (Auto) 1.9 (1.2-3.8) 10^3/uL [place] # (Auto) 0.8 (0.3-0.8) 10^3/uL Eos # (Auto) 0.2 (0.0-0.7) 10^3/uL Baso # (Auto) 0.0 (0.0-0.1) 10^3/uL Abs Immat Gran (auto) 0.01 (0.00-0.03) 10^3/uL Imm/Tot Granulo (auto) 0.2 (0.0-0.5) % Sodium 145 (136-145) mmol/L Potassium 3.9 (3.5-5.1) mmol/L Chloride 109 H (98-107) mmol/L Carbon Dioxide 30.1 (21.0-32.0) mmol/L Anion Gap 9.8 BUN 15.0 (7.0-18.0) mg/dL Creatinine 0.99 (0.55-1.02) mg/dL Est GFR ( Amer) >60 (>=60 mL/min/1.73m^2) Est GFR (Non-Af Amer) 55 L (>=60 mL/min/1.73m^2) BUN/Creatinine Ratio 15.2 Glucose 94 (74-106) mg/dL Calcium 9.1 (8.5-10.1) mg/dL Total Bilirubin 1.0 (0.2-1.0) mg/dL AST 11 L (15-37) U/L ALT 14 (14-59) U/L Alkaline Phosphatase 95 (46-116) U/L Troponin I High Sens 4.8 (4.0-51.3) pg/mL Total Protein 7.2 (6.4-8.2) g/dL Albumin 3.5 (3.4-5.0) g/dL Globulin 3.7 g/dL Albumin/Globulin Ratio 0.9 ECG Data Attestation: I personally reviewed and interpreted this ECG as follows: (Sinus rhythm at 73 bpm, normal axis, no acute ST segment elevation or T wave inversion) Discharge Plan Discharge Chief Complaint: Chest Pain Clinical Impression: Chest pain Patient Disposition: Home, Self-Care Time of Disposition Decision: 01:50 Condition: Good Prescriptions / Home Meds: No Action losartan 50 mg tablet 50 mg PO DAILY quetiapine 25 mg tablet 25 mg PO BEDTIME atorvastatin 20 mg tablet 20 mg PO DAILY mirtazapine 7.5 mg tablet 7.5 mg PO .every night risperidone 0.5 mg tablet 0.5 mg PO BID acetaminophen [Tylenol 8 Hour] 650 mg tablet extended release 650 mg PO Q8H PRN (Reason: fever or pain) Qty: 20 0RF albuterol sulfate 90 mcg/actuation HFA aerosol inhaler INHALATION Print Language: Cam[place]onian Instructions: Chest Pain (ED) Referrals: Evelyn Tariq NP [Primary Care Provider, Family Practice] - 1 week
[2025-05-07 01:01] LABS: Hematocrit 34.1 % (36.0-48.0); Hemoglobin 11.2 g/dL (12.0-16.0); Immature Granulocytes Abs Auto 0.01 10^3/uL (0.00-0.03); Immature Granulocytes Pct Auto 0.2 % (0.0-0.5); Lymphocytes Absolute Auto 1.9 10^3/uL (1.2-3.8); Mean Corpuscular HGB Conc 32.8 g/dL (29.9-35.2); Mean Corpuscular Hemoglobin 32.6 pg (26.7-34.0); Mean Corpuscular Volume 99.1 fL (81.0-99.0); Platelet Count 235 10^3/uL (150-450); Red Blood Count 3.44 10^6/uL (4.20-5.40); White Blood Count 5.7 10^3/uL (4.0-11.0)
[2025-05-07] MEDS: ASPIRIN 81 MG TAB.CHEW 324 MG PO (01:08)
[2025-05-07 01:12] VITALS: O2SAT 99
[2025-05-07 01:13] VITALS: BP 159/90; PULSE 67; O2SAT 99
[2025-05-07 01:25] LABS: Alanine Aminotransferase 14 U/L (14-59); Albumin Globulin Ratio 0.9; Albumin Level 3.5 g/dL (3.4-5.0); Alkaline Phosphatase 95 U/L (46-116); Anion Gap 9.8; Aspartate Amino Transferase 11 U/L (15-37); Blood Urea Nitrogen 15.0 mg/dL (7.0-18.0); Calcium 9.1 mg/dL (8.5-10.1); Carbon Dioxide 30.1 mmol/L (21.0-32.0); Chloride 109 mmol/L (98-107); Estimated GFR (African America >60 (>=60 mL/min/1.73m^2); Estimated GFR (Non-African Ame 55 (>=60 mL/min/1.73m^2); Globulin 3.7 g/dL; Glucose 94 mg/dL (74-106); Potassium 3.9 mmol/L (3.5-5.1); Sodium 145 mmol/L (136-145); Total Protein 7.2 g/dL (6.4-8.2)
== END 2025-05-07 02:49 | disposition home or self-care (01) ==
PROVIDERS: Emergency Provider Emergency Medicine; PCP Nurse Practitioner
DX: R07.89 Other chest pain (principal); F03.94 Unspecified dementia, unspecified severity, with anxiety
CPT/HCPCS: 36415; 71045; 80053; 84484; 85025; 93005; 99285

== ENCOUNTER 2025-05-31 10:45 | Outpatient (OUT) | payer OTHER, SELFPAY ==
--- OUTSIDE RECORDS SUMMARY | 2025-05-31 11:22 | XMS_ITS | CCD ---
Author Organization [facility] Inform ion [facility] Care Team Providers Care Director Cardiology Name Role Phone DR ONUR SOLANO Consulting Unavailable FAWWAD, BONILLA H Attending Unavailable FAWWAD, BONILLA H Primary Care Unavailable FAWWAD, BONILLA H Admitting Unavailable FAWWAD, BONILLA H Consulting Unavailable FAWWAD, BONILLA H Attending Unavailable DR CARLOS KEMP V Consulting Unavailable FAWWAD, BONILLA H Primary Care Unavailable FAWWAD, BONILLA H Admitting Unavailable FAWWAD, BONILLA H Consulting Unavailable AICHHOLZ, AIR CONDITIONING EQUIPMENT MECHANIC EVELYN Consulting Unavailable AICHHOLZ, AIR CONDITIONING EQUIPMENT MECHANIC EVELYN Admitting Unavailable AICHHOLZ, AIR CONDITIONING EQUIPMENT MECHANIC EVELYN Attending Unavailable FAWWAD, BONILLA H Primary Care Unavailable DR ONUR SOLANO Consulting Unavailable FAWWAD, BONILLA H Attending [...] FAWWAD, BONILLA H Primary Care Unavailable DR ONUR SOLANO Consulting Unavailable AICHHOLZ, AIR CONDITIONING EQUIPMENT MECHANIC EVELYN Consulting Unavailable AICHHOLZ, AIR CONDITIONING EQUIPMENT MECHANIC EVELYN Admitting Unavailable AICHHOLZ, AIR CONDITIONING EQUIPMENT MECHANIC EVELYN Attending Unavailable FAWWAD, BONILLA H Primary Care Unavailable DR ONUR SOLANO Consulting Unavailable MD Natalia [facility] Primary Care Provider DO Jorge Ladd Attending Provider LONI BRITT Attending Unavailable PUMA ROCHA Referring Unavailable [facility] Primary Care Unavailable LONI BRITT Attending Unavailable PUMA ROCHA Referring Unavailable [facility] Primary Care Unavailable DOREEN, AISLINN S Referring Unavailable HOY, QI M Primary Care Unavailable DOREEN, AISLINN S Referring Unavailable HOY, QI M Primary Care Unavailable DOREEN, AISLINN S Referring Unavailable QI ANDRADE M Primary Care Unavailable JORGE LADD Attending Unavailable JORGE LADD [facility] Care Unavailable Shaik Fisher MDh Unavailable Navneet Vanegas MD Primary Care Provider Yolie SUBCONTRACT ADMINISTRATOR, Duyen Unavailable Qi Andrade MD Primary Care Provider Yolie SUBCONTRACT ADMINISTRATOR, Duyen Unavailable [phone] Qi Andrade MD Primary Care Provider Navneet Vanegas MD Primary Care Provider Chandni SUBCONTRACT ADMINISTRATOR, Evelyn Unavailable Natalia FELIX, Bonilla Primary Care Provider Charley Lam APRN Attending Provider Shaikh Fisher Primary Care Unavailable Charley Lam Attending Unavailable Charley Lam Admitting Unavailable Navneet Vanegas MD Primary Care Provider Chandni SUBCONTRACT ADMINISTRATOR, Evelyn Unavailable DUYEN URBANO Attending Unavailabl e EVELYN TARIQ Attending Unavailable DAVE AMBROCIO Attending Unavailable EVELYN TARIQ Attending Unavailable DAVE AMBROCIO Attending Unavailable BROWN, DAVE A Attending Unavailable Allergies Allergy Classification Reported Allergen(s) Allergy Type Date of Onset Reaction(s) Facility (1 source) Acetaminophen / oxyCODONE Drug Allergy 3 [facility] Repository (1 source) Morphine Drug Allergy 3 [facility] Repository (20 sources) Acetaminophen / oxyCODONE; Translations: [OXYCODONE-ACETAM INOPHEN] Drug Allergy 4 Itching [facility] Repository (2 sources) Adhesive agent; Translations: [ADHESIVE] Propensity to adverse reactions to drug (disorder) 4 [facility] Repository (20 sources) Morphine Drug Allergy 3 Itching [facility] Healthcare Work Phone: (20 sources) Wound Dressing Adhesive Drug Intolerance 4 [facility] Medications Current Medications Medication Drug Class(es) Dates Sig (Normalized) Sig (Original) [id number] 200 actuat albuterol 0.09 mg/actuat metered dose inhaler (20 sources) beta2-Adrenergic Agonist Start: 05-15-2025 Start: 01-05-2025 End: 04-23-2025 take 2 puff(s) by inhalation every six hours for wheezing albuterol HFA 90 mcg/act inhaler Indications: Mild intermittent asthma with status asthmaticus (HCC) Inhale 2 puffs every 6 (six) hours if needed for wheezing 18 g 03/24/2025 Active Start: 02-12-2024 End: 01-04-2025 take 2 [...] morning and 875 mg before bedtime. Active Arm Brace misc (2 sources) Start : 05-15 Arm Brace misc Active 0 .Route 1 May 15, 2025 12:00am As directed atorvastatin 20 mg oral tablet (20 sources) [...] bedtime 90 tablet 1 02/24/2025 05/25/2025 Active predniSONE 20 mg oral tablet (2 sources) Start : 05-15 take 2 tablets by mouth once daily, then take 1 tablet by mouth once daily QUEtiapine 25 mg oral tablet (4 sources) [...] tablet (20 sources) Atypical Antipsychotic Start : 05-15 Start: 08-05-2024 End: 05-25-2025 take 1 tablet by mouth in the morning risperiDONE (RisperDAL) 0.5 MG tablet Indications: Behavioral Disorders associated with Dementia Take 1 tablet (0.5 mg) by mouth in the morning and 1 tablet (0.5 mg) before bedtime. 180 tablet 1 02/24/2025 05/25/2025 Active Problems Active Problems Problem Classification Problem Date Documented Da te Episodic/Chronic Acquired foot deformities (1 source) Acquired deformity of toe of left foot; Translations: [Acquired deformities of toe(s), unspecified, left foot] 05-20-2025 Episodic Acquired foot deformities (1 source) Acquired deformity of toe of right foot; Translations: [Acquired deformities of toe(s), unspecified, right foot] 05-20-2025 Episodic Asthma (20 sources) Mild intermittent asthma; Translations: [...] [FEVER UNSPECIFIED] Onset: 3 Episodic Mood disorders (20 sources) Depressive disorder; Translations: [Depression] Onset: 3 06-27-2023 Chronic Mycoses (4 sources) Pain in toe; Translations: [Tinea unguium] 12-31-2024 Episodic Nausea and vomiting (4 sources) Nausea with vomiting, unspecified; Translations: [NAUSEA WITH VOMITING UNSPECIFIED] Onset: 3 Episodic Osteoarthritis (20 sources) Unilateral primary osteoarthritis, right hip; Translations: [Arthritis of left acromioclavicular joint] Onset: 2 Chronic Other aftercare (1 source) 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; Translations: [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] Onset: 3 Episodic Other connective tissue disease (4 sources) Bursitis, right hand; Translations: [Bursitis of right wrist] 05-15-2025 Episodic Other diseases of veins and lymphatics (4 sources) Vascular insufficiency; Translations: [Venous insufficiency (chronic) (peripheral)] 12-31-2024 Episodic Other gastrointestinal disorders (1 source) Diarrhea, unspecified; Translations: [DIARRHEA UNSPECIFIED] Onset: 3 Episodic Other hereditary and degenerative nervous system conditions (20 sources) Mild cognitive impairment, so stated; Translations: [Mild cognitive impairment, so stated] Onset: 3 06-27-2023 Chronic Other non-traumatic joint disorders (2 sources) Pain of right wrist; Translations: [Pain in right wrist] 05-15-2025 Episodic Residual codes; unclassified (12 sources) Colon cancer screening declined; Translations: [Procedure and treatment not carried out because of patient's decision for unspecified reasons] Onset: 5 02-24-2025 Episodic Schizophrenia and other psychotic disorders (15 sources) Delusional disorder; Translations: [Delusional disorders] Onset: [...] [CONTACT W/AND (SUSP) EXPOS COVID-19] Onset: 3 Past or Other Problems Problem Classification Problem Date Documented Da te Episodic/Chronic Conditions associated with dizziness or vertigo (20 sources) Dizziness and giddiness; Translations: [Dizziness] Onset: 06-27-2023 06-27-2023 Episodic Heart valve disorders (20 sources) Cardiac murmur, unspecified; Translations: [Heart murmur] Onset: 09-02-2022 06-27-2023 Episodic Mood disorders (20 sources) Mood disorders Onset: 01-06-2024 Resolved: 02-24-2025 01-06-2024 Nonspecific chest pain (4 sources) Chest pain, unspecified; Translations: [CHEST PAIN UNSPECIFIED] Onset: 08-29-2022 Episodic Nutritional deficiencies (20 sources) Cobalamin deficiency; Translations: [Deficiency of other specified B group vitamins] Onset: 07-11-2023 08-12-2023 Episodic Other circulatory disease (20 sources) Low blood pressure; Translations: [Hypotension, unspecified] Onset: 05-15-2014 Resolved: 11-24-2024 06-27-2023 Episodic Other injuries and conditions due to external causes (4 sources) History of falling; Translations: [HISTORY OF FALLING] Onset: 07-12-2022 Episodic Other lower respiratory disease (1 source) Shortness of breath; Translations: [SHORTNESS OF BREATH] Onset: 09-02-2022 Episodic Other non-traumatic joint disorders (20 sources) Pain in left shoulder; Translations: [Pain [...] CIRC] Onset: 09-02-2022 Episodic Residual codes; unclassified (20 sources) Confusional state; Translations: [Disorientation, unspecified] Onset: 07-31-2023 07-31-2023 Episodic Schizophrenia and other psychotic disorders (10 sources) Brief reactive psychosis; Translations: [Brief psychotic disorder] Onset: 06-30-2024 02-24-2025 Episodic Spondylosis; intervertebral disc disorders; other back problems (1 source) Cervicalgia; Translations: [CERVICALGIA] Onset: 09-12-2022 Episodic Unclassified (10 sources) Onset: 02-24-2025 02-24-2025 Viral infection (20 sources) Disease caused by 2019-nCoV; Translations: [COVID-19] Onset: 10-12-2024 10-12-2024 Episodic Results Test Name Value Interpretation Reference Range Facility X-ray reportOrdered By: Rajan Chavez on 05-15-2025 Study report [facility] Main [address] [address] XRay Report Signed Patient: Kevon Campos MR#: [id number] : 1950 Acct:[id number] Age/Sex: 75 / F ADM Date: 5 Loc: XDUCLY Room: Type: [facility] Attending Dr: Charley Lam APRN Copies to: Charley Lam APRN~ Ordering Provider: Charley Lam APRN Date of Service: 05/15/25 XR/XR wrist RT min 3V*: RIGHT WRIST PAIN XR wrist RT min 3V* 05/15/2025 10:27 AM SIGNS AND SYMPTOMS: Right wrist pain PROTOCOL: Frontal and lateral, and oblique radiographs of the right breast COMPARISON: None FINDINGS: Degenerative changes are noted in the radiocarpal joint space, between the scaphoid and trapezium, and between the trapezium and base of the first metacarpal. There is also narrowing of the second carpometacarpal joint space. There is no fracture or dislocation. Degenerative changes are noted along the distal radioulnar joint. There is diffuse soft tissue swelling. XR/XR wrist RT min 3V* IMPRESSION: No acute displaced fracture. Significant degenerative changes are noted in the wrist with accompanying soft tissue swelling. Impression dictated by: Rajan Chavez M.D. 05/15/2025 10:40 AM Dictation Location: [place] [address] Transcribed By: [facility] 05/15/25 1040 Dictated By: Rajan Chavez II, MD 05/15/25 1034 Signed By: 05/15/25 1040 [facility] Work Phone: XR wrist RT min 3V*on 2024 XR wrist RT min 3V* [facility] Main [address] [address] XRay Report Signed Patient: Kevon Campos MR#: [id number] : 1950 Acct:[id number] Age/Sex: 75 / F ADM Date: 05/15/25 Loc: XDUCLY Room: Type: [facility] Attending Dr: Charley Lam APRN Copies to: Charley Lam APRN Ordering Provider: Charley Lam APRN Date of Service: 05/15/25 XR/XR wrist RT min 3V*: RIGHT WRIST PAIN XR wrist RT min 3V* 05/15/2025 10:27 AM SIGNS AND SYMPTOMS: Right wrist pain PROTOCOL: Frontal and lateral, and oblique radiographs of the right breast COMPARISON: None FINDINGS: Degenerative changes are noted in the radiocarpal joint space, between the scaphoid and trapezium, and between the trapezium and base of the first metacarpal. There is also narrowing of the second carpometacarpal joint space. There is no fracture or dislocation. Degenerative changes are noted along the distal radioulnar joint. There is diffuse soft tissue swelling. XR/XR wrist RT min 3V* IMPRESSION: No acute displaced fracture. Significant degenerative changes are noted in the wrist with accompanying soft tissue swelling. Impression dictated by: Rajan Chavez M.D. 05/15/2025 10:40 AM Dictation Location: [place] [address] Transcribed By: [facility] 05/15/25 1040 Dictated By: Rajan Chavez II, MD 05/15/25 1034 Signed By: 05/15/25 1040 Normal [facility] MG Breast - bilateral Screen [facility] 03-09-2025 [place] [address] Mammography Report Signed Patient: KEVON CAMPOS MR#: [id number] : 1950 Acct:[id number] Age/Sex: 75 / F ADM Date: 03/09/25 Loc: MAMMO Attending Dr: Evelyn Tariq NP Ordering Physician: Evelyn Tariq NP Results: Date of Service: 03/09/25 Follow Up: Procedure(s): MM screening mammo BI Accession Number(s): [id number] cc: Evelyn Tariq NP Patient Name: KEVON CAMPOS MR#: [id number] : 1950 Exam Date: 03/09/2025 Ordering Doctor: NEIDA TARIQ AIR CONDITIONING EQUIPMENT MECHANIC RADIOLOGY REPORT PROCEDURE: MM SCREENING MAMMO BI [...] Treatments None Family Cancers None LOCATION: [facility] BREAST COMPOSITION: The breasts are heterogeneously [...] Signed By: 03/09/25 1346 DD/ 1345 TD/TT: Press Set Up Person: [facility] Radiology, Radiologist, MD - 03/09/2025 [place] [address] Mammography Report Signed Patient: KEVON CAMPOS MR#: [id number] : 1950 Acct:[id number] Age/Sex: 75 / F ADM Date: 03/09/25 Loc: MAMMO Attending Dr: Evelyn Tariq NP Ordering Physician: Evelyn Tariq NP Results: Date of Service: 03/09/25 Follow Up: Procedure(s): MM screening mammo BI Accession Number(s): [id number] cc: Evelyn Tariq NP Patient Name: KEVON CAMPOS MR#: [id number] : 1950 Exam Date: 03/09/2025 Ordering Doctor: [...] Treatments None Family Cancers None LOCATION: [facility] BREAST COMPOSITION: The breasts are heterogeneously [...] Signed By: 03/09/25 1346 DD/ 1345 TD/TT: Press Set Up Person: [facility] Radiology Study observation (narrative) [facility] MG Breast - bilateral Screen ingOrdered By: Radiologist Radiology on 03-09-2025 [facility] Work Phone: [facility] UA (CLEAN/CATCH) MICROSC OPIC IF INDICATEon 02-25-2025 BILIRUBIN URINE Negative NEGATIVE [facility] BLOOD URINE TRACE-I NEGATIVE [facility] Clarity (U) CLEAR CLEAR [facility] Color (U) LT. YELLOW YELLOW [facility] GLUCOSE URINE UA Negative NEGATIVE mg/dL [facility] Interpretation and review of laboratory results Abnormal [facility] Ketones Ql (U) Negative NEGATIVE mg/dL [facility] Leukocyte esterase Test strip Ql (U) SMALL Abnormal NEGATIVE [facility] NITRITE URINE Negative NEGATIVE [facility] pH (U) 6.0 [pH] 5.0 - 9.0 [facility] PROTEIN URINE Negative NEG/TRACE mg/dL [facility] SPECIFIC GRAVITY URINE <=1.005 Abnormal 1.005 - 1.025 [facility] URINE MICROSCOPIC INDICATED YES [facility] UROBILINOGEN URINE 0.2 EU/dL 0.2 - 1.0 EU/dL [facility] URINALYSISon 08-08-2024 Amorphous sediment LM Ql (Urine sed) PRESENT Abnormal NONE [facility] Comment on above: Performed By: #### C BCA, HA1C, CMP, 28785-9, THYR, 3051-0 #### [facility] ([id number]) [address], [address] [place] [address] Bilirubin Ql (U) Negative Normal NEG [facility] Comment on above: Performed By: #### C BCA, HA1C, CMP, 74030-7, THYR, 3051-0 #### [facility] ([id number]) [address], [facility] [address] [place] [address] BLOOD/HGB Negative Normal NEG [facility] Comment on above: Performed By: #### C BCA, HA1C, CMP, 36811-8, THYR, 3051-0 #### [facility] ([id number]) [address], [address] [place] [address] Color (U) YELLOW Normal YELLOW [facility] Comment on above: Performed By: #### C BCA, HA1C, CMP, 90406-4, THYR, 3051-0 #### [facility] ([id number]) [address], [address] [place] [address] Glucose Ql (U) Negative Normal NEG [facility] Comment on above: Performed By: #### C BCA, HA1C, CMP, 83096-9, THYR, 3051-0 #### [facility] ([id number]) [address], [address] [place] [address] Ketones Ql (U) Trace Abnormal NEG [facility] Comment on above: Performed By: #### C BCA, HA1C, CMP, 11050-2, THYR, 3051-0 #### [facility] ([id number]) [address], [address] [place] [address] Leukocyte esterase Test strip Ql (U) Negative Normal NEG [facility] Comment on above: Performed By: #### C BCA, HA1C, CMP, 60319-8, THYR, 3051-0 #### [facility] ([id number]) [address], [address] [place] [address] Nitrite Ql (U) Negative Normal NEG [facility] Comment on above: Performed By: #### C BCA, HA1C, CMP, 16350-5, THYR, 3051-0 #### [facility] ([id number]) [address], [address] [place] [address] pH (U) 6.0 [pH] Normal 5.0-8.5 [facility] Comment on above: Performed By: #### C BCA, HA1C, CMP, 13667-1, THYR, 3051-0 #### [facility] ([id number]) [address], [address] [place] [address] Protein Ql (U) 30 mg/dL Abnormal NEG [facility] Comment on above: Performed By: #### C BCA, HA1C, CMP, 16818-8, THYR, 3051-0 #### [facility] ([id number]) [address], [address] [place] [address] R.B.CELLS 0 /hpf Normal 0-5 [facility] Comment on above: Performed By: #### C BCA, HA1C, CMP, 88713-6, THYR, 3051-0 #### [facility] ([id number]) [address], [address] [place] [address] Specific gravity (U) [Rel density] 1.020 Normal 1.003-1.035 [facility] Comment on above: Performed By: #### C BCA, HA1C, CMP, 83343-5, THYR, 3051-0 #### [facility] ([id number]) [address], [address] [place] [address] TURBIDITY HAZY Abnormal CLEAR [facility] Comment on above: Performed By: #### C BCA, HA1C, CMP, 98936-7, THYR, 3051-0 #### [facility] ([id number]) [address], [address] [place] [address] URIC ACID CRYSTALS PRESENT Abnormal NONE [facility] Comment on above: Performed By: #### C BCA, HA1C, CMP, 22847-2, THYR, 3051-0 #### [facility] ([id number]) [address], [address] [place] [address] Urobilinogen Qn (U) 0.2 {Quan'U}/dL Normal <1.1 [facility] Comment on above: Performed By: #### C BCA, HA1C, CMP, 19196-3, THYR, 3051-0 #### [facility] ([id number]) [address], [address] [place] [address] W.B.CELLS 20 /hpf High 0-5 [facility] Comment on above: Performed By: #### C BCA, HA1C, CMP, 84736-4, THYR, 3051-0 #### [facility] ([id number]) [address] [address] [place] [address] WBC CASTS 1 /lpf High 0 [facility] Comment on above: Performed By: #### C BCA, HA1C, CMP, 80628-0, THYR, 305-0 #### [facility] ([id number]) [address] [address] [place] [address] URINE CULTUREon 08-08-2024 Bacteria identified Cx Nom (U) CULTURE RESULTS <10,000 ORGANISMS/ML NORMAL URO GENITAL DELMY Normal [facility] Comment on above: Performed By: #### C BCA, HA1C, CMP, 30412-3, THYR, 305-0 #### [facility] ([id number]) [address] [address] [place] [address] CBC AND AUTO DIFFon 08-05-20 24 Band form neutrophils/100 WBC (Bld) 38.0 % Normal [facility] Comment on above: Performed By: #### C DARINEL, CBCA #### [facility] ([id number]) [address] [address] [place] [address] Erythrocyte distribution width (RBC) [Ratio] 13.6 % Normal 11.5-15.0 [facility] Comment on above: Performed By: #### C DARINEL, CBCA #### [facility] ([id number]) [address] [address] [place] [address] Hematocrit (Bld) [Volume fraction] 37.6 % Normal 35-47 [facility] Comment on above: Performed By: #### C MP, CBCA #### [facility] ([id number]) [address] [address] [place] [address] Hemoglobin (Bld) [Mass/Vol] 13.2 g/dL Normal 11.7-15.5 [facility] Comment on above: Performed By: #### C MP, CBCA #### [facility] ([id number]) [address] [address] Lymphocytes (Bld) [#/Vol] 0.5 10*3/uL Low 1.0-3.5 [facility] Comment on above: Performed By: #### C DARINEL, CBCA #### [facility] ([id number]) [address], [address] [place] [address] Lymphocytes/100 WBC (Bld) 10.0 % Normal [facility] Comment on above: Performed By: #### C MP, CBCA #### [facility] ([id number]) [address] [facility] [address] [place] [address] MCH (RBC) [Entitic mass] 32.8 pg Normal 27-34 [facility] Comment on above: Performed By: #### C DARINEL, CBCA #### [facility] ([id number]) [address] [address] [place] [address] MCHC (RBC) [Mass/Vol] 35.1 g/dL Normal 32-36 [facility] Comment on above: Performed By: #### C DARINEL, CBCA #### [facility] ([id number]) [address], [address] [place] [address] MCV (RBC) [Entitic vol] 94 fL Normal 80-100 [facility] Comment on above: Performed By: #### C DARINEL, CBCA #### [facility] ([id number]) [address] [address] [place] [address] Metamyelocytes/100 WBC (Bld) 2.0 % Normal [facility] Comment on above: Performed By: #### C MP, CBCA #### [facility] ([id number]) [address] [address] [place] [address] Monocytes (Bld) [#/Vol] 0.6 10*3/uL Normal 0-0.9 [facility] Comment on above: Performed By: #### C DARINEL, CBCA #### [facility] ([id number]) [address] [place] [address] Monocytes/100 WBC (Bld) 11.0 % Normal [facility] Comment on above: Performed By: #### C MP, CBCA #### [facility] ([id number]) [address], [address] [place] [address] NEUTROPHIL VACUOLES 1+ Abnormal NONE [facility] Comment on above: Performed By: #### C MP, CBCA #### [facility] ([id number]) [address] [place] [address] Neutrophils (Bld) [#/Vol] 4.1 10*3/uL Normal 1.5-6.6 [facility] Comment on above: Performed By: #### C MP, CBCA #### [facility] ([id number]) [address], [address] [place] [address] Platelet mean volume (Bld) [Entitic vol] 9.8 fL Normal 7-12 [facility] Comment on above: Performed By: #### C MP, CBCA #### [facility] ([id number]) [address] [place] [address] Platelets (Bld) [#/Vol] 170 10*3/uL Normal 150-450 [facility] Comment on above: Performed By: #### C MP, CBCA #### [facility] ([id number]) [address] [place] [address] RBC COUNT 4.01 X10E12/L Normal 3.80-5.20 [facility] Comment on above: Performed By: #### C MP, CBCA #### [facility] ([id number]) [address], [address] [place] [address] SEG NEUTROPHIL 39.0 % Normal [facility] Comment on above: Performed By: #### C MP, CBCA #### [facility] ([id number]) [address] [place] [address] WBC (Bld) [#/Vol] 5.3 10*3/uL Normal 4.0-11.0 [facility] Comment on above: Performed By: #### C DARINEL CBCA #### [facility] ([id number]) [address], [address] [place] [address] COMPREHENSIVE METABOLIC PANE Abhishek 08-05-2024 Albumin [Mass/Vol] 3.9 g/dL Normal 3.2-5.3 [facility] Comment on above: Performed By: #### C DARINEL CBCA #### [facility] ([id number]) [address], [address] [place] [address] ALP [Catalytic activity/Vol] 61 U/L Normal 39-130 [facility] Comment on above: Performed By: #### C DARINEL CBCA #### [facility] ([id number]) [address], [address] [place] [address] ALT [Catalytic activity/Vol] 23 U/L Normal 0-31 [facility] Comment on above: Performed By: #### C DARINLE CBCA #### [facility] ([id number]) [address], [address] [place] [address] Anion gap [Moles/Vol] 13 mmol/L Normal 5-15 [facility] Comment on above: Performed By: #### C DARINEL CBCA #### [facility] ([id number]) [address], [address] [place] [address] AST [Catalytic activity/Vol] 46 U/L High 0-41 [facility] Comment on above: Performed By: #### C DARINEL, CBCA #### [facility] ([id number]) [address], [address] [place] [address] Bilirubin [Mass/Vol] 1.1 mg/dL Normal 0.3-1.2 [facility] Comment on above: Performed By: #### C DARINEL CBCA #### [facility] ([id number]) [address], [address] [place] [address] Calcium [Mass/Vol] 9.1 mg/dL Normal 8.5-10.5 [facility] Comment on above: Performed By: #### C DARINEL, CBCA #### [facility] ([id number]) [address] [address] [place] [address] Chloride [Moles/Vol] 99 mmol/L Normal 98-109 [facility] Comment on above: Performed By: #### C DARINEL CBCA #### [facility] ([id number]) [address] [address] [place] [address] CO2 [Moles/Vol] 21 mmol/L Low 22-32 [facility] Comment on above: Performed By: #### C DARINEL CBCA #### [facility] ([id number]) [address] [address] [place] [address] Creatinine [Mass/Vol] 1.29 mg/dL High 0.40-1.00 [facility] Comment on above: Result Comment: METH OD TRACEABLE TO IDMS STANDARD Performed By: #### C DARINEL CBCA #### [facility] ([id number]) [address] [address] [place] [address] GFR/1.73 sq M.predicted among non-blacks MDRD (S/P/Bld) [Vol rate/Area] 44 mL/min/{1.73_m2} Low >59 [facility] Comment on above: Result Comment: Reported eGFR is based on the CKD-EPI 2020 equation that does not use a race coefficient. Performed By: #### C DARINEL, CBCA #### [facility] ([id number]) [address] [address] [place] [address] Glucose [Mass/Vol] 175 mg/dL High 65-99 [facility] Comment on above: Performed By: #### C DARINEL CBCA #### [facility] ([id number]) [address], [address] [place] [address] Potassium [Moles/Vol] 3.3 mmol/L Low 3.5-5.0 [facility] Comment on above: Performed By: #### C DARINEL CBCA #### [facility] ([id number]) [address], [address] [place] [address] Protein [Mass/Vol] 7.0 g/dL Normal 6.0-8.0 [facility] Comment on above: Performed By: #### C DARINEL, CBCA #### [facility] ([id number]) [address], [address] [place] [address] Sodium [Moles/Vol] 133 mmol/L Low 134-146 [facility] Comment on above: Performed By: #### C DARINEL CBCA #### [facility] ([id number]) [address], [address] [place] [address] Urea nitrogen [Mass/Vol] 20 mg/dL Normal 5-27 [facility] Comment on above: Performed By: #### C DARINEL, CBCA #### [facility] ([id number]) [address], [address] [place] [address] CBC AND AUTO DIFFon 07-23-20 24 ABSOLUTE BASOPHIL 0.0 X10E9/L Normal 0.0-0.2 [facility] Comment on above: Performed By: #### C BCA, HA1C, CMP, 53057-5, THYR, 3051-0 #### [facility] ([id number]) [address], [address] [place] [address] ABSOLUTE NEUTROPHIL 2.4 X10E9/L Normal 1.5-6.6 [facility] Comment on above: Performed By: #### C BCA, HA1C, CMP, 94073-0, THYR, 3051-0 #### [facility] ([id number]) [address], [address] [place] [address] Basophils/100 WBC (Bld) 0.7 % Normal [facility] Comment on above: Performed By: #### C BCA, HA1C, CMP, 94622-7, THYR, 3051-0 #### [facility] ([id number]) [address], [address] [place] [address] Eosinophils (Bld) [#/Vol] 0.1 10*3/uL Normal 0.0-0.4 [facility] Comment on above: Performed By: #### C BCA, HA1C, CMP, 20500-6, THYR, 3051-0 #### [facility] ([id number]) [address] [place] [address] Eosinophils/100 WBC (Bld) 2.1 % Normal [facility] Comment on above: Performed By: #### C BCA, HA1C, CMP, 06663-9, THYR, 3051-0 #### [facility] ([id number]) [address], [address] [place] [address] Erythrocyte distribution width (RBC) [Ratio] 13.8 % Normal 11.5-15.0 [facility] Comment on above: Performed By: #### C BCA, HA1C, CMP, 69491-1, THYR, 3051-0 #### [facility] ([id number]) [address], [address] [place] [address] Hematocrit (Bld) [Volume fraction] 35.9 % Normal 35-47 [facility] Comment on above: Performed By: #### C BCA, HA1C, CMP, 32378-7, THYR, 3051-0 #### [facility] ([id number]) [address], [address] [place] [address] Hemoglobin (Bld) [Mass/Vol] 12.5 g/dL Normal 11.7-15.5 [facility] Comment on above: Performed By: #### C BCA, HA1C, CMP, 37892-5, THYR, 3051-0 #### [facility] ([id number]) [address], [facility] [address] [place] [address] Lymphocytes (Bld) [#/Vol] 1.6 10*3/uL Normal 1.0-3.5 [facility] Comment on above: Performed By: #### C BCA, HA1C, CMP, 50694-4, THYR, 3051-0 #### [facility] ([id number]) [address] [address] [place] [address] Lymphocytes/100 WBC (Bld) 34.8 % Normal [facility] Comment on above: Performed By: #### C BCA, HA1C, CMP, 98869-0, THYR, 3051-0 #### [facility] ([id number]) [address] [address] [place] [address] MCH (RBC) [Entitic mass] 33.2 pg Normal 27-34 [facility] Comment on above: Performed By: #### C BCA, HA1C, CMP, 86310-6, THYR, 3051-0 #### [facility] ([id number]) [address] [address] [place] [address] MCHC (RBC) [Mass/Vol] 34.8 g/dL Normal 32-36 [facility] Comment on above: Performed By: #### C BCA, HA1C, CMP, 22909-0, THYR, 3051-0 #### [facility] ([id number]) [address] [address] [place] [address] MCV (RBC) [Entitic vol] 95 fL Normal 80-100 [facility] Comment on above: Performed By: #### C BCA, HA1C, CMP, 64920-5, THYR, 3051-0 #### [facility] ([id number]) [address] [address] [place] [address] Monocytes (Bld) [#/Vol] 0.4 10*3/uL Normal 0-0.9 [facility] Comment on above: Performed By: #### C BCA, HA1C, CMP, 32164-8, THYR, 3051-0 #### [facility] ([id number]) [address], [address] [place] [address] Monocytes/100 WBC (Bld) 9.7 % Normal [facility] Comment on above: Performed By: #### C BCA, HA1C, CMP, 63310-6, THYR, 3051-0 #### [facility] ([id number]) [address] [address] [place] [address] Neutrophils/100 WBC (Bld) 52.7 % Normal [facility] Comment on above: Performed By: #### C BCA, HA1C, CMP, 14897-5, THYR, 3051-0 #### [facility] ([id number]) [address] [address] [place] [address] Platelet mean volume (Bld) [Entitic vol] 8.6 fL Normal 7-12 [facility] Comment on above: Performed By: #### C BCA, HA1C, CMP, 80441-6, THYR, 3051-0 #### [facility] ([id number]) [address] [address] [place] [address] Platelets (Bld) [#/Vol] 251 10*3/uL Normal 150-450 [facility] Comment on above: Performed By: #### C BCA, HA1C, CMP, 56165-1, THYR, 3051-0 #### [facility] ([id number]) [address], [address] [place] [address] RBC COUNT 3.76 X10E12/L Low 3.80-5.20 [facility] Comment on above: Performed By: #### C BCA, HA1C, CMP, 15645-4, THYR, 3051-0 #### [facility] ([id number]) [address], [address] [place] [address] WBC (Bld) [#/Vol] 4.6 10*3/uL Normal 4.0-11.0 [facility] Comment on above: Performed By: #### C BCA, HA1C, CMP, 34697-7, THYR, 3051-0 #### [facility] ([id number]) [address], [address] [place] [address] COMPREHENSIVE METABOLIC PANE Abhishek 07-23-2024 Albumin [Mass/Vol] 4.1 g/dL Normal 3.2-5.3 [facility] Comment on above: Performed By: #### C BCA, HA1C, CMP, 46269-3, THYR, 3051-0 #### [facility] ([id number]) [address], [address] [place] [address] ALP [Catalytic activity/Vol] 69 U/L Normal 39-130 [facility] Comment on above: Performed By: #### C BCA, HA1C, CMP, 14667-1, THYR, 3051-0 #### [facility] ([id number]) [address], [address] [place] [address] ALT [Catalytic activity/Vol] 9 U/L Normal 0-31 [facility] Comment on above: Performed By: #### C BCA, HA1C, CMP, 35088-5, THYR, 3051-0 #### [facility] ([id number]) [address], [address] [place] [address] Anion gap [Moles/Vol] 9 mmol/L Normal 5-15 [facility] Comment on above: Performed By: #### C BCA, HA1C, CMP, 60547-2, THYR, 3051-0 #### [facility] ([id number]) [address], [address] [place] [address] AST [Catalytic activity/Vol] 18 U/L Normal 0-41 [facility] Comment on above: Performed By: #### C BCA, HA1C, CMP, 95504-8, THYR, 3051-0 #### [facility] ([id number]) [address], [address] [place] [address] Bilirubin [Mass/Vol] 1.1 mg/dL Normal 0.3-1.2 [facility] Comment on above: Performed By: #### C BCA, HA1C, CMP, 62533-9, THYR, 3051-0 #### [facility] ([id number]) [address], [address] [place] [address] Calcium [Mass/Vol] 9.4 mg/dL Normal 8.5-10.5 [facility] Comment on above: Performed By: #### C BCA, HA1C, CMP, 15066-0, THYR, 3051-0 #### [facility] ([id number]) [address], [address] [place] [address] Chloride [Moles/Vol] 107 mmol/L Normal 98-109 [facility] Comment on above: Performed By: #### C BCA, HA1C, CMP, 44365-8, THYR, 3051-0 #### [facility] ([id number]) [address], [address] [place] [address] CO2 [Moles/Vol] 28 mmol/L Normal 22-32 [facility] Comment on above: Performed By: #### C BCA, HA1C, CMP, 08250-4, THYR, 3051-0 #### [facility] ([id number]) [address], [address] [place] [address] Creatinine [Mass/Vol] 0.85 mg/dL Normal 0.40-1.00 [facility] Comment on above: Result Comment: METH OD TRACEABLE TO IDMS STANDARD Performed By: #### C BCA, HA1C, CMP, 18145-9, THYR, 3051-0 #### [facility] ([id number]) [address], [facility] [address] [place] [address] GFR/1.73 sq M.predicted among non-blacks MDRD (S/P/Bld) [Vol rate/Area] 73 mL/min/{1.73_m2} Normal >59 [facility] Comment on above: Result Comment: Reported eGFR is based on the CKD-EPI 2020 equation that does not use a race coefficient. Performed By: #### C BCA, HA1C, CMP, 15424-2, THYR, 3051-0 #### [facility] ([id number]) [address] [address] Glucose [Mass/Vol] 90 mg/dL Normal 65-99 [facility] Comment on above: Performed By: #### C BCA, HA1C, CMP, 03459-9, THYR, 3051-0 #### [facility] ([id number]) [address] [address] Potassium [Moles/Vol] 4.0 mmol/L Normal 3.5-5.0 [facility] Comment on above: Performed By: #### C BCA, HA1C, CMP, 66354-9, THYR, 3051-0 #### [facility] ([id number]) [address] [address] [place] [address] Protein [Mass/Vol] 6.8 g/dL Normal 6.0-8.0 [facility] Comment on above: Performed By: #### C BCA, HA1C, CMP, 73234-2, THYR, 3051-0 #### [facility] ([id number]) [address] [place] [address] Sodium [Moles/Vol] 144 mmol/L Normal 134-146 [facility] Comment on above: Performed By: #### C BCA, HA1C, CMP, 63921-3, THYR, 3051-0 #### [facility] ([id number]) [address] [place] [address] Urea nitrogen [Mass/Vol] 19 mg/dL Normal 5-27 [facility] Comment on above: Performed By: #### C BCA, HA1C, CMP, 33527-1, THYR, 3051-0 #### [facility] ([id number]) [address] [facility] [address] [place] [address] FREE T3on 07-23-2024 Free T3 [Mass/Vol] 2.66 pg/mL Normal 2.50-3.90 [facility] Comment on above: Performed By: #### C BCA, HA1C, CMP, 22378-7, THYR, 3051-0 #### [facility] ([id number]) [address] [place] [address] HGB A1C (GLYCO-HGB)on 2023 Glucose [Mass/Vol] 108 mg/dL Normal [facility] Comment on above: Performed By: #### C BCA, HA1C, CMP, 63363-7, THYR, 3051-0 #### [facility] ([id number]) [address] [place] [address] HbA1c (Bld) [Mass fraction] 5.4 % Normal 4.4-5.6 [facility] Comment on above: Result Comment: NOTE ADA Guidelines Result HgbA1c Normal : less than 5.7 % Prediabetes : 5.7 % to 6.4 % Diabetes : > 6.4 % Use with caution in patients with abnormal hemoglobin variants as the half-life of red blood cells and in vivo glycation rates are affected. Performed By: #### C BCA, HA1C, CMP, 63470-3, THYR, 3051-0 #### [facility] ([id number]) [address] [place] [address] Insulin Qnon 07-23-2024 INSULIN 7.91 uIU/mL Normal 1.00-23.00 [facility] Comment on above: Result Comment: Ref. range is for FASTING NON-DIABETIC POPULATION. Performed By: #### 2 0448-7 #### [facility] ([id number]) [address] [place] [address] Lipid 1996 panelon Cholesterol [Mass/Vol] 222 mg/dL High 150-200 [facility] Comment on above: Performed By: #### C BCA, HA1C, CMP, 86603-1, THYR, 305-0 #### [facility] ([id number]) [address] [place] [address] Cholesterol in HDL [Mass/Vol] 67 mg/dL Normal >39 [facility] Comment on above: Result Comment: HDL <40 mg/dL - High Risk HDL > or = 40mg/dL- Desirable HDL >60 mg/dL - Negative Risk Performed By: #### C BCA, HA1C, CMP, 41949-5, THYR, 3051-0 #### [facility] ([id number]) [address] [place] [address] Cholesterol in LDL [Mass/Vol] 138 mg/dL High <130 [facility] Comment on above: Result Comment: LDL <100 mg/dL - Desirable LDL >160 mg/dL - High Risk Performed By: #### C BCA, HA1C, CMP, 60710-1, THYR, 3051-0 #### [facility] ([id number]) [address] [address] [place] [address] Cholesterol in VLDL [Mass/Vol] 17 mg/dL Normal 0-30 [facility] Comment on above: Performed By: #### C BCA, HA1C, CMP, 29421-7, THYR, 3051-0 #### [facility] ([id number]) [address] [address] [place] [address] CHOLESTEROL:HDL 3.3 Normal 1.0-5.0 [facility] Comment on above: Performed By: #### C BCA, HA1C, CMP, 76040-4, THYR, 3051-0 #### [facility] ([id number]) [address] [address] [place] [address] Triglyceride [Mass/Vol] 86 mg/dL Normal 27-150 [facility] Comment on above: Performed By: #### C BCA, HA1C, CMP, 96877-3, THYR, 3051-0 #### [facility] ([id number]) [address] [address] [place] [address] THYROID PROFILEon 07-23-2024 Free T4 [Mass/Vol] 0.72 ng/dL Normal 0.61-1.60 [facility] Comment on above: Performed By: #### C BCA, HA1C, CMP, 43662-3, THYR, 3051-0 #### [facility] ([id number]) [address] [address] [place] [address] TSH 1.71 uIU/mL Normal 0.49-4.67 [facility] Comment on above: Performed By: #### C BCA, HA1C, CMP, 82085-5, THYR, 3051-0 #### [facility] ([id number]) [address] [place] [address] MR BRAIN WO CONTon 4 MR BRAIN [...] Haskins MD on 09/26/2023 7:49 PM Normal [facility] Folate [Mass/volume] in Seru m or PlasmaOrdered By: Jorge Ladd on 09-03-2023 Folate [Mass/Vol] 15.2 ng/mL >5.9 [facility] Comment on above: Folate reference ran ge: >5.9 ng/mlThe WHO technical consultation on folate and vitamin [id number] has determined that folate concentrations lessthan 4 ng/ml are considered deficient. Thyrotropin [Units/volume] i n Serum or PlasmaOrdered By: Jorge Ladd on 09-03-2023 TSH Qn 1.89 m[IU]/L 0.45-5.33 [facility] Vitamin B12 ser/plasOrdered By: Jorge Ladd on 09-03-2023 Cobalamin (Vitamin B12) [Mass/Vol] 711 pg/mL 180-914 [facility] CBC AUTO DIFFon 12-20-2022 BASO # 0.0 103/ul Normal 0.0-0.1 [facility] Comment on above: Performed By: #### C BC ####[facility] [address] [place], [place] [address]Qp. Yilan Hernández Basophils/100 WBC (Bld) 0.1 % Critically low 0.2-2.0 [facility] Comment on above: Performed By: #### C BC ####[facility] [address] [place] [id number]. Venea Hernández EO # 0.1 103/ul Normal 0.0-0.7 [facility] Comment on above: Performed By: #### C BC ####[facility] [address] [place] [address]Dr. Veena Hernández Eosinophils/100 WBC (Bld) 1.2 % Normal 0.9-7.0 [facility] Comment on above: Performed By: #### C BC ####[facility] [address] [place], [place] [address]Dr. Veena Hernández Erythrocyte distribution width (RBC) [Ratio] 13.2 % Normal 11.0-15.0 [facility] Comment on above: Performed By: #### C BC ####[facility] [address] [place], [place] [address]Dr. Veena Hernández Hematocrit (Bld) [Volume fraction] 38.4 % Normal 36.0-48.0 [facility] Comment on above: Performed By: #### C BC ####[facility] [address] [place], [place] [address]Dr. Veena Henrández Hemoglobin (Bld) [Mass/Vol] 12.6 g/dL Normal 12.0-16.0 [facility] Comment on above: Performed By: #### C BC ####[facility] [address] [place], [place] [address]Dr. Veena Hernández IG # 0.02 10e3/ul Normal 0.00-0.03 [facility] Comment on above: Performed By: #### C BC ####[facility] [address] [place], [place] [address]Dr. Veena Hernández IG % 0.3 % Normal 0.0-0.5 [facility] Comment on above: Performed By: #### C BC ####[facility] [address] [place], [place] [address]Dr. Valeha Hernández LYMPH # 0.3 103/ul Critically low 1.2-3.[address] [facility] Comment on above: Performed By: #### C BC ####[facility] [address] [place] [id number]. Valeha Heránndez Lymphocytes/100 WBC (Bld) 4.1 % Critically low 20.5-60.0 [facility] Comment on above: Performed By: #### C BC ####[facility] [address] [place] [id number]. Veena Hernández MANUAL DIFF REQ NO Normal [facility] Comment on above: Performed By: #### C BC ####[facility] [address] [place] [id number]. Veena Hernández MCH (RBC) [Entitic mass] 31.4 pg Normal 26.7-34.0 [facility] Comment on above: Performed By: #### C BC ####[facility] [address] [place], [place] [address]Dr. Veena Hernández MCHC (RBC) [Mass/Vol] 32.8 g/dL Normal 29.9-35.2 [facility] Comment on above: Performed By: #### C BC ####[facility] [address] [place] [id number]. Veena Hernández MCV (RBC) [Entitic vol] 95.8 fL Normal 81.0-99.0 [facility] Comment on above: Performed By: #### C BC ####[facility] [address] [place], [place] [address]Dr. Veena Hernández MONO # 0.3 103/ul Normal 0.3-0.8 [facility] Comment on above: Performed By: #### C BC ####[facility] [address] [place] [id number]. Veena Hernández Monocytes/100 WBC (Bld) 3.8 % Normal 1.7-12.0 [facility] Comment on above: Performed By: #### C BC ####[facility] [address] [place] [id number]. Veena Hernández NEUT # 7.1 103/ul Critically high 1.4-6.5 [facility] Comment on above: Performed By: #### C BC ####[facility] [address] [place], [place] [address]Ws. Veena Hernández Neutrophils/100 WBC (Bld) 90.5 % Critically high 43.0-75.0 [facility] Comment on above: Performed By: #### C BC ####[facility] [address] [place], [place] [address]Xe. Veena Hernández Platelet mean volume (Bld) [Entitic vol] 9.8 fL Normal 9.5-13.5 [facility] Comment on above: Performed By: #### C BC ####[facility] [address] [place], [place] [address]Aq. Veena Hernández PLT 231 103/ul Normal 150-450 [facility] Comment on above: Performed By: #### C BC ####[facility] [address] [place] [id number]. Veena Hernández RBC 4.01 106/ul Critically low 4.20-5.40 [facility] Comment on above: Performed By: #### C BC ####[facility] [address] [place], [place] [address]Wi. Veena Hernández WBC 7.8 103/ul Normal 4.0-11.0 [facility] Comment on above: Performed By: #### C BC ####[facility] [id number] [place] [id number]. Veena Hernández Covid-19 PCR (CVDTB)on SARS-CoV-2 (COVID-19) RNA ROGER+probe Ql (Unsp spec) Not detected Normal NOT DETECTED [facility] Comment on above: Result Comment: This test is not yet approved or cleared by the [place] FDA. When there are no FDA-approved or cleared tests available, and other criteria are met, FDA can make tests available under an emergency access mechanism called an Emergency Use Authorization (EUA). The EUA for this test is supported by the [employer] Administrator of Health and Human Service's (HHS's) declaration [...] with SARS-CoV-2. Performed By: #### C VDTBH ####[facility] [address] [place] [address]. [facility] INFLUENZA A AND B AGon 12-20 INFLUANE SEE BELOW Normal [facility] Comment on above: Result Comment: Nega tive for Flu A protein angiten. Infection due to Flu A cannot be ruled out. Flu A angiten in the sample may be below the detection limit of the test. Performed By: #### I NFLUAB ####[address] [facility] INFLUBNEGH SEE BELOW Normal [facility] Comment on above: Result Comment: Nega tive for Flu B protein antigen. Infection due to Flu B cannot be ruled out. Flu B antigen in the sample may be below the detection limit of the test. Performed By: #### I NFLUAB ####[address] [facility] INFLUENZA A AG Negative Normal NEGATIVE SEE COMMENT [facility] Comment on above: Performed By: #### I NFLUAB ####[facility] [address] [place], [place] [address]Dr. [facility] INFLUENZA B AG Negative Normal NEGATIVE SEE COMMENT [facility] Comment on above: Performed By: #### I NFLUAB ####[facility] [address] [place] [address]. [facility] LACTATE/LACTIC ACIDon 2022 Lactate [Moles/Vol] 0.7 mmol/L Normal 0.4-2.0 [facility] Comment on above: Performed By: #### L ACT ####[facility] [address] [place] [address]Dr. Veena Hernández LIPASEon 12-20-2022 Lipase [Catalytic activity/Vol] 309.0 U/L Normal 73.0-393.0 [facility] Comment on above: Performed By: #### L WILLIAM BADILLOTRJOANNN, CMP ####[facility] [address] [place] [address]Dr. Veena Hernández PROF 14(COMP METB)on 023 Albumin [Mass/Vol] 3.7 g/dL Normal 3.4-5.0 [facility] Comment on above: Performed By: #### L IPAWILLIAMTRJAYMIE, CMP ####[facility] [address] [place] [address]Dr. Veena Hernández Albumin/Globulin [Mass ratio] 1.2 {ratio} Normal [facility] Comment on above: Performed By: #### L IPA HSTROPN, CMP ####[facility] [address] [place] [address]Dr. Veena Hernández ALP [Catalytic activity/Vol] 85 U/L Normal 46-116 [facility] Comment on above: Performed By: #### L IPAWILLIAMTRJOANNN, CMP ####[facility] [address] [place], [place] [address]Dr. Veena Hernández ALT [Catalytic activity/Vol] 15 U/L Normal 14-59 [facility] Comment on above: Performed By: #### L IPA HSTROPN, CMP ####[facility] [address] [place] [address]Dr. Veena Hernández Anion gap [Moles/Vol] 11.2 mmol/L Normal [facility] Comment on above: Performed By: #### L IPA HSTROPN, CMP ####[facility] [address] [place] [address]Dr. Veena Hernández AST [Catalytic activity/Vol] 15 U/L Normal 15-37 [facility] Comment on above: Performed By: #### L IPA HSTROPN, CMP ####[facility] [address] [place] [address]Dr. Veena Hernández Bilirubin [Mass/Vol] 0.9 mg/dL Normal 0.2-1.0 The [facility] Comment on above: Performed By: #### L IPA, HSTROPN, CMP ####[facility] [address] [place] [address]Dr. Veena Hernández Calcium [Mass/Vol] 8.7 mg/dL Normal 8.5-10.1 [facility] Comment on above: Performed By: #### L IPA, HSTROPN, CMP ####[facility] [address] [place] [address]Dr. Veena Hernández Chloride [Moles/Vol] 104 mmol/L Normal 98-107 The [facility] Comment on above: Performed By: #### L IPA, HSTROPN, CMP ####[facility] [address] [place], [place] [address]Dr. Veena Hernández CO2 [Moles/Vol] 27.8 mmol/L Normal 21.0-32.0 [facility] Comment on above: Performed By: #### L IPA, HSTROPN, CMP ####[facility] [address] [place], [place] [address]Dr. Veena Hernández Creatinine [Mass/Vol] 0.77 mg/dL Normal 0.55-1.02 The [facility] Comment on above: Performed By: #### L IPA, HSTROPN, CMP ####[facility] [address] [place], [place] [address]Dr. Veena Hernández EGFR-AF MALIAN >60 Normal >=60 [facility] Comment on above: Performed By: #### L IPA, HSTROPN, CMP ####[facility] [address] [place], [place] [address]Dr. Veena Hernández EGFR-NON AF MALIAN >60 Normal >=60 The [facility] Comment on above: Performed By: #### L IPA, HSTROPN, CMP ####[facility] [address] [place], [place] [address]Dr. Veena Hernández Globulin (S) [Mass/Vol] 3.2 g/dL Normal [facility] Comment on above: Performed By: #### L IPA, HSTROPN, CMP ####[facility] [address] [place] [address]Dr. Veena Hernández Glucose [Mass/Vol] 121 mg/dL Critically high 74-106 T [facility] Comment on above: Performed By: #### L IPA HSTROPN, CMP ####[facility] G[address] [place], [place] [address]Dr. eVena Hernández Potassium [Moles/Vol] 4.0 mmol/L Normal 3.5-5.1 The [facility] Comment on above: Performed By: #### L IPA HSTROPN, CMP ####[facility] [address] [place], [place] [address]Dr. Veena Hernández Protein [Mass/Vol] 6.9 g/dL Normal 6.4-8.2 The [facility] Comment on above: Performed By: #### L IPA HSTROPN, CMP ####[facility] [address] [place], [place] [address]Dr. Veena Hernández Sodium [Moles/Vol] 139 mmol/L Normal 136-145 The [facility] Comment on above: Performed By: #### L IPA, HSTROPN, CMP ####[facility] [address] [place], [place] [address]Dr. Veena Hernández Urea nitrogen [Mass/Vol] 19.0 mg/dL Critically high 7.0-18.0 [facility] Comment on above: Performed By: #### L IPA, HSTROPN, CMP ####[facility] [address] [place], [place] [address]Dr. Veena Hernández Urea nitrogen/Creatinine [Mass ratio] 24.7 mg/mg Normal The [facility] Comment on above: Performed By: #### L IPA, HSTROPN, CMP ####[facility] [address] [place] [address]Dr. Veena Hernández SYMPTOMATIC COVID-19 ANTIGEN on 12-20-2022 EUA Statement SEE BELOW Normal The [facility] Comment on above: Result Comment: [...] revoked sooner. Performed By: #### C VDAGS ####[facility] [address] [place] [address]Dr. Valeha Hernández SARS-CoV-2 (COVID-19) RNA ROGER+probe Ql (Unsp spec) Negative Normal NEGATIVE The [facility] Comment on above: Performed By: #### C VDAGS ####[facility] [address] [place] [id number]. Veena Hernández TROPONIN, HIGH SENSITIVITYon 12-20-2022 HSTROP <4.0 Normal 4.0-51.3 The [facility] Comment on above: Result Comment: CUT- OFF POINTS HAVE BEEN ESTABLISHED BASED ON THE FOURTH UNIVERSAL DEFINITIONS OF MYOCARDIAL INFARCTION. THE UPPER REFERENCE LIMIT (URL) OF TROPONIN, DEFINED THE 99TH PERCENTILE OF cTnI DISTRIBUTION IN A REFERENCE POPULATION, HAS BEEN CONFIRMED THE DECISION THRESHOLD FOR [place] DIAGNOSIS. Performed By: #### L IPA, HSTROPN, CMP ####[facility] [address] [place] [id number]. Veena Hernández XR CSPINE 2_3 VIEWSon 2021 [...] by: ONUR SOLANO Date: 2022-09-05 17:06 Normal [facility] ECHOCARDIO M/2D COMPLETEon 1 10-30-2021 ECHOCARDIO M/2D COMPLETE Patient: KEVON CAMPOS Exam Date: 08/29/2022 : 1950 Gender:F Ordering : [facility] Admission #: [id number] Family : Order #: [id number] CLICK HERE TO VIEW EXAM ECHOCARDIOGRAM REPORT [...] Myles Haney M.D. on 08/30/2022 at 12:57 [facility] STRESS/REST MULTIon 08-29 NM STRESS/REST MULTI Patient: KEVON CAMPOS Exam Date: 08/29/2022 : 1950 Gender:F Ordering : NEIDA EVELYN [facility] Admission #: [id number] Family : Order #: [id number] CLICK HERE TO VIEW EXAM RADIOLOGY REPORT [...] M.D. on 08/29/2022 at 15:58 Normal The [facility] BNPon 08-01-2022 Natriuretic peptide B (Bld) [Mass/Vol] 41.0 pg/mL Normal <=900.0 The [facility] Comment on above: Performed By: #### C K, CKMB, REINALDO, CMP, BNP, HSTROPN #### [facility] [address] [place] [address] Dr. Veena Hernández CBC AUTO DIFFon 08-01-2022 BASO # 0.0 103/ul Normal 0.0-0.1 [facility] Comment on above: Performed By: #### C BC ####[facility] [address] [place] [id number]. Veena Hernández Basophils/100 WBC (Bld) 0.8 % Normal 0.2-2.0 The [facility] Comment on above: Performed By: #### C BC ####[facility] [address] [place] [id number]. Veena Hernández EO # 0.1 103/ul Normal 0.0-0.7 The [facility] Comment on above: Performed By: #### C BC ####[facility] [address] [place], [place] [address]Dr. Veena Hernández Eosinophils/100 WBC (Bld) 1.3 % Normal 0.9-7.0 The [facility] Comment on above: Performed By: #### C BC ####[facility] [address] [place], [place] [address]Dr. Veena Hernández Erythrocyte distribution width (RBC) [Ratio] 13.3 % Normal 11.0-15.0 The [facility] Comment on above: Performed By: #### C BC ####[facility] [address] [place], [place] [address]Dr. Veena Hernández Hematocrit (Bld) [Volume fraction] 39.3 % Normal 36.0-48.0 The [facility] Comment on above: Performed By: #### C BC ####[facility] [address] [place], [place] [address]Dr. Veena Hernández Hemoglobin (Bld) [Mass/Vol] 12.9 g/dL Normal 12.0-16.0 The [facility] Comment on above: Performed By: #### C BC ####[facility] [address] [place], [place] [address]Dr. Veena Hernández IG # 0.00 10e3/ul Normal 0.00-0.03 The [facility] Comment on above: Performed By: #### C BC ####[facility] [address] [place], [place] [address]Dr. Veena Hernández IG % 0.0 % Normal 0.0-0.5 The [facility] Comment on above: Performed By: #### C BC ####[facility] [address] [place] [id number]. Veena Hernández LYMPH # 1.8 103/ul Normal 1.2-3.8 The [facility] Comment on above: Performed By: #### C BC ####[facility] [address] [place] [id number]. Veena Hernández Lymphocytes/100 WBC (Bld) 34.3 % Normal 20.5-60.0 The [facility] Comment on above: Performed By: #### C BC ####[facility] [address] [place] [id number]. Veena Hernández MANUAL DIFF REQ NO Normal [facility] Comment on above: Performed By: #### C BC ####[facility] [address] [place] [id number]. Veena Hernández MCH (RBC) [Entitic mass] 31.1 pg Normal 26.7-34.0 The [facility] Comment on above: Performed By: #### C BC ####[facility] [address] [place] [id number]. Veena Hernández MCHC (RBC) [Mass/Vol] 32.8 g/dL Normal 29.9-35.2 The [facility] Comment on above: Performed By: #### C BC ####[facility] [address] [place] [id number]. Veena Hernández MCV (RBC) [Entitic vol] 94.7 fL Normal 81.0-99.0 The [facility] Comment on above: Performed By: #### C BC ####[facility] [address] [place] [id number]. Veena Hernández MONO # 0.3 103/ul Normal 0.3-0.8 The [facility] Comment on above: Performed By: #### C BC ####[facility] [address] [place] [id number]. Veena Edgar Monocytes/100 WBC (Bld) 6.1 % Normal 1.7-12.0 The [facility] Comment on above: Performed By: #### C BC ####[facility] [address] [place], [place] [address]Dk. Veena Hernández NEUT # 3.0 103/ul Normal 1.4-6.5 The [facility] Comment on above: Performed By: #### C BC ####[facility] [address] [place], [place] [address]Ed. Veena Hernández Neutrophils/100 WBC (Bld) 57.5 % Normal 43.0-75.0 The [facility] Comment on above: Performed By: #### C BC ####[facility] [address] [place], [place] [address]Ba. Veena Edgar Platelet mean volume (Bld) [Entitic vol] 9.8 fL Normal 9.5-13.5 The [facility] Comment on above: Performed By: #### C BC ####[facility] [address] [place] [id number]. Veena Edgar PLT 227 103/ul Normal 150-450 The [facility] Comment on above: Performed By: #### C BC ####[facility] [address] [place], [place] [address]Vu. Veena Edgar RBC 4.15 106/ul Critically low 4.20-5.40 The [facility] Comment on above: Performed By: #### C BC ####[facility] [address] [place] [id number]. Veena Edgar WBC 5.3 103/ul Normal 4.0-11.0 The [facility] Comment on above: Performed By: #### C BC ####[facility] [address] [place], [place] [address]CnLindsey Hernández CKMBon 08-01-2022 CK.MB [Mass/Vol] 0.90 ng/mL Normal <=3.60 [facility] Comment on above: Performed By: #### C K, CKMB, REINALDO, CMP, BNP, HSTROPN #### [facility] [address] [place], [place] [address] Dr. Veena Hernández CPKon 08-01-2022 CK [Catalytic activity/Vol] 66 U/L Normal 26-192 The [facility] Comment on above: Performed By: #### C K, CKMB, REINALDO, CMP, BNP, HSTROPN #### [facility] [address] [place] [address] [address] Veean Hernández MYOGLOBINon 08-01-2022 REINALDO 38 ng/mL Normal 9-82 [facility] Comment on above: Performed By: #### C K, CKMB, REINALDO, CMP, BNP, HSTROPN ####[facility] [address] [place] [address]Dr. Veena Hernández PROF 14(COMP METB)on 022 Albumin [Mass/Vol] 4.0 g/dL Normal 3.4-5.0 [facility] Comment on above: Performed By: #### C K, CKMB, REINALDO, CMP, BNP, HSTROPN #### [facility] [address] [place] [address] [address] Veena Hernández Albumin/Globulin [Mass ratio] 1.3 {ratio} Normal [facility] Comment on above: Performed By: #### C K, CKMB, REINALDO, CMP, BNP, HSTROPN #### [facility] [address] [place] [address] [address] Veena Hernández ALP [Catalytic activity/Vol] 69 U/L Normal 46-116 [facility] Comment on above: Performed By: #### C K, CKMB, REINALDO, CMP, BNP, HSTROPN #### [facility] [address] [place] [address] [address] Veena Hernández ALT [Catalytic activity/Vol] 15 U/L Normal 14-59 [facility] Comment on above: Performed By: #### C K, CKMB, REINALDO, CMP, BNP, HSTROPN #### [facility] [address] [place] [address] [address] Veena Hernández Anion gap [Moles/Vol] 7.4 mmol/L Normal [facility] Comment on above: Performed By: #### C K, CKMB, REINALDO, CMP, BNP, HSTROPN #### [facility] [address] [place] [address] [address] Veena Hernández AST [Catalytic activity/Vol] 14 U/L Critically low 15-37 [facility] Comment on above: Performed By: #### C K, CKMB, REINALDO, CMP, BNP, HSTROPN #### [facility] [address] [place] [address] [address] Veena Hernández Bilirubin [Mass/Vol] 1.9 mg/dL Critically high 0.2-1.0 [facility] Comment on above: Performed By: #### C K, CKMB, REINALDO, CMP, BNP, HSTROPN #### [facility] [address] [place] [address] [address] Veena Hernández Calcium [Mass/Vol] 9.4 mg/dL Normal 8.5-10.1 [facility] Comment on above: Performed By: #### C K, CKMB, REINALDO, CMP, BNP, HSTROPN #### [facility] [address] [place] [address] Dr. Veena Hernández Chloride [Moles/Vol] 106 mmol/L Normal 98-107 The [facility] Comment on above: Performed By: #### C K, CKMB, REINALDO, CMP, BNP, HSTROPN #### [facility] [address] [place] [address] [address] Veena Hernández CO2 [Moles/Vol] 32.3 mmol/L Critically high 21.0-32.0 [facility] Comment on above: Performed By: #### C K, CKMB, REINALDO, CMP, BNP, HSTROPN #### [facility] [address] [place] [address] Dr. Veena Hernández Creatinine [Mass/Vol] 0.80 mg/dL Normal 0.55-1.02 [facility] Comment on above: Performed By: #### C K, CKMB, REINALDO, CMP, BNP, HSTROPN #### [facility] [address] [place] [address] [address] Veena Hernández EGFR-AF MALIAN >60 Normal >=60 [facility] Comment on above: Performed By: #### C K, CKMB, REINALDO, CMP, BNP, HSTROPN #### [facility] [address] [place] [address] Dr. Veena Hernández EGFR-NON AF MALIAN >60 Normal >=60 [facility] Comment on above: Performed By: #### C K, CKMB, REINALDO, CMP, BNP, HSTROPN #### [facility] [address] [place] [address] Dr. Veena Hernández Globulin (S) [Mass/Vol] 3.2 g/dL Normal [facility] Comment on above: Performed By: #### C K, CKMB, REINALDO, CMP, BNP, HSTROPN #### [facility] [address] [place] [address] Dr. Veena Hernández Glucose [Mass/Vol] 98 mg/dL Normal 74-106 [facility] Comment on above: Performed By: #### C K, CKMB, REINALDO, CMP, BNP, HSTROPN #### [facility] [address] [place] [address] Dr. Veena Hernández Potassium [Moles/Vol] 3.7 mmol/L Normal 3.5-5.1 The [facility] Comment on above: Performed By: #### C K, CKMB, REINALDO, CMP, BNP, HSTROPN #### [facility] [address] [place] [address] Dr. Veena Hernández Protein [Mass/Vol] 7.2 g/dL Normal 6.4-8.2 [facility] Comment on above: Performed By: #### C K, CKMB, ERINALDO, CMP, BNP, HSTROPN #### [facility] [address] [place] [address] Dr. Veena Hernández Sodium [Moles/Vol] 142 mmol/L Normal 136-145 [facility] Comment on above: Performed By: #### C K, CKMB, REINALDO, CMP, BNP, HSTROPN #### [facility] [address] [place] [address] Dr. Veena Hernández Urea nitrogen [Mass/Vol] 11.0 mg/dL Normal 7.0-18.0 The [facility] Comment on above: Performed By: #### C K, CKMB, REINALDO, CMP, BNP, HSTROPN #### [facility] [address] [place] [address] [address] Veena Hernández Urea nitrogen/Creatinine [Mass ratio] 13.8 mg/mg Normal The [facility] Comment on above: Performed By: #### C K, CKMB, REINALDO, CMP, BNP, HSTROPN #### [facility] [address] [place] [address] [address] Veena Hernández TROPONIN, HIGH SENSITIVITYon 08-01-2022 HSTROP 5.0 pg/mL Normal 4.0-51.3 The [facility] Comment on above: Result Comment: CUT- OFF POINTS HAVE BEEN ESTABLISHED BASED ON THE FOURTH UNIVERSAL DEFINITIONS OF MYOCARDIAL INFARCTION. THE UPPER REFERENCE LIMIT (URL) OF TROPONIN, DEFINED THE 99TH PERCENTILE OF cTnI DISTRIBUTION IN A REFERENCE POPULATION, HAS BEEN CONFIRMED THE DECISION THRESHOLD FOR [place] DIAGNOSIS. Performed By: #### C K, CKMB, REINALDO, CMP, BNP, HSTROPN #### [facility] [address] [place] [address] [address] Veena Hernández XR CHEST 2 Von [...] ONUR SOLANO Date: 2022-08-01 10:19 Normal [facility] XR LSPINE 2_3 [...] by: CARLOS KEMP Date: 2022-07-12 19:26 Normal [facility] XR HIP RT INJon 04-03-2022 XR HIP [...] by: ONUR SOLANO Date: 2022-04-03 09:18 Normal [facility] Vital Signs Date Time Vital Sign Value Performing Clinician Faci lity 05-20-2025 11:16040 Body height 154.9 cm Dave Ambrocio [facility] Work Phone: [facility] 05-20-2025 11:16-040 Body mass index (BMI) [Ratio] 30.8 kg/m2 Dave Ambrocio DPM Work Phone: [facility] 05-20-2025 11:16040 Body weight 73.94 kg Dave Ambrocio [facility] Work Phone: [facility] 05-20-2025 11:16-0400 Respiratory rate 16 /min Dave Ambrocio DPM Work Phone: [facility] 05-15-2025 09:36-0400 Body height 152.4 cm Shaikh Natalia FELIX Work Phone: [facility] 05-15-2025 09:36-0400 Body mass index (BMI) [Ratio] 32.6 kg/m2 Shaikh Natalia FELIX Work Phone: [facility] 05-15-2025 09:36-0400 Body temperature 97.5 [degF] Shaikh Natalia FELIX Work Phone: [facility] 05-15-2025 09:36-0400 Body weight 75.86 kg Shaikh Natalia FELIX Work Phone: [facility] 05-15-2025 09:36-0400 Diastolic blood pressure 74 mm[Hg] Shaikh Natalia FELIX Work Phone: [facility] 05-15-2025 09:36-0400 Heart rate 84 /min Shaikh Natalia FELIX Work Phone: [facility] 05-15-2025 09:36-0400 Respiratory rate 18 /min Shaikh Natalia FELIX Work Phone: [facility] 05-15-2025 09:36-0400 SaO2% (BldA) [Mass fraction] 95 % Shaikh Natalia FELIX Work Phone: [facility] 05-15-2025 09:36-0400 Systolic blood pressure 131 mm[Hg] Shaikh Natalia FELIX Work Phone: [facility] 03-11-2025 11:18-0400 Body height 154.9 cm Dave Ambrocio DPM Work Phone: [facility] 03-11-2025 11:18-0400 Body mass index (BMI) [Ratio] 30.8 kg/m2 Dave Ambrocio DPM Work Phone: [facility] 03-11-2025 11:18-0400 Body weight 73.94 kg Dave Ambrocio DPM Work Phone: [facility] 03-11-2025 11:18-0400 Respiratory rate 18 /min Dave Ambrocio DPM Work Phone: [facility] 02-24-2025 09:39-0400 Body mass index (BMI) [Ratio] 30.91 kg/m2 Evelyn Aichholz [employer] ADMINISTRATOR Work Phone: [facility] 02-24-2025 09:39-0400 Body temperature 98.6 [degF] Evelyn Aichholz SUBCONTRACT ADMINISTRATOR Work Phone: [facility] 02-24-2025 09:39-0400 Body weight 74.21 kg Evelyn Aichholz SUBCONTRACT ADMINISTRATOR Work Phone: [facility] 02-24-2025 09:39-0400 Diastolic blood pressure 88 mm[Hg] Evelyn Aichholz SUBCONTRACT ADMINISTRATOR Work Phone: [facility] 02-24-2025 09:39-0400 Heart rate 78 /min Evelyn Aichholz [employer] ADMINISTRATOR Work Phone: [facility] 02-24-2025 09:39-0400 Respiratory rate 18 /min Evelyn Aichholz [employer]TR[employer] ADMINISTRATOR Work Phone: [facility] 02-24-2025 09:39-0400 SaO2% (BldA) [Mass fraction] 97 % Evelyn Aichholz [employer]TR[employer] ADMINISTRATOR Work Phone: [facility] 02-24-2025 09:39-0400 Systolic blood pressure 138 mm[Hg] Evelyn Aichholz SUBCONTRACT ADMINISTRATOR Work Phone: [facility] 12-31-2024 11:53-0400 Body height 154.9 cm Dave Ambrocio DPM Work Phone: [facility] 12-31-2024 11:53-0400 Body mass index (BMI) [Ratio] 27.4 kg/m2 Dave Ambrocio DPM Work Phone: [facility] 12-31-2024 11:53-0400 Body weight 65.77 kg Dave Ambrocio DPM Work Phone: [facility] 12-31-2024 11:53-0400 Respiratory rate 18 /min Dave Ambrocio DPM Work Phone: [facility] 10-12-2024 09:52-0500 Body height 154.9 cm Duyen Urbano SUBCONTRACT ADMINISTRATOR Work Phone: [facility] 10-12-2024 09:52-0500 Body mass index (BMI) [Ratio] 27.21 kg/m2 Duyen Urbano SUBCONTRACT ADMINISTRATOR Work Phone: [facility] 10-12-2024 09:52-0500 Body temperature 97.2 [degF] Duyen Urbano SUBCONTRACT ADMINISTRATOR Work Phone: [facility] 10-12-2024 09:52-0500 Body weight 65.32 kg Duyen Urbano SUBCONTRACT ADMINISTRATOR Work Phone: [facility] 10-12-2024 09:52-0500 Diastolic blood pressure 74 mm[Hg] Duyen Urbano SUBCONTRACT ADMINISTRATOR Work Phone: [facility] 10-12-2024 09:52-0500 Heart rate 80 /min Duyen Urbano SUBCONTRACT ADMINISTRATOR Work Phone: [facility] 10-12-2024 09:52-0500 Respiratory rate 16 /min Duyen Urbano SUBCONTRACT ADMINISTRATOR Work Phone: [facility] 10-12-2024 09:52-0500 SaO2% (BldA) [Mass fraction] 98 % Duyen Urbano SUBCONTRACT ADMINISTRATOR Work Phone: [facility] 10-12-2024 09:52-0500 Systolic blood pressure 132 mm[Hg] Duyen Urbano SUBCONTRACT ADMINISTRATOR Work Phone: [facility] Encounters Encounter Date Encounter Type Care Provider Facility Start: 05-20-2025 End: 05-20-2025 Bamboo flowsheet Dave Ambrocio DPM Work Phone: [facility] Start: 05-20-2025 End: 05-20-2025 Bamboo flowsheet Dave Ambrocio DPM Work Phone: [facility] Start: 05-20-2025 End: 05-20-2025 Office outpatient visit 15 minutes Dave Ambrocio DPM Work Phone: [facility] Comment on above: Acquired deformity o f left toe (Primary Dx); Pain due to onychomycosis of toenails of both feet; Venous insufficiency; Acquired deformity of right toe Start: 05-20-2025 End: 05-20-2025 ambulatory DAVE AMBROCIO Not Available Start: 05-15-2025 End: 05-15-2025 ambulatory Shaikh Natalia FELIX Work Phone: [facility] Work Phone: Start: 05-15-2025 End: 05-15-2025 Patient encounter procedure Charley Motley COMMERCIAL PRODUCTION EDITOR [facility] Work Phone: Start: 03-24-2025 End: 03-24-2025 Refill Evelyn Tariq SUBCONTRACT ADMINISTRATOR Work Phone: [facility] Comment on above: Mild intermittent as thma with status asthmaticus (HCC) Start: 03-11-2025 End: 03-11-2025 Bamboo flowsheet Dave Ambrocio DPM Work Phone: [facility] Start: 03-11-2025 End: 03-11-2025 Bamboo flowsheet Dave Ambrocio DPM Work Phone: [facility] Start: 03-11-2025 End: 03-11-2025 Patient encounter procedure Dave Ambrocio DPM Work Phone: [facility] Comment on above: Pain due to onychomy cosis of toenails of both feet (Primary Dx); Venous insufficiency Start: 03-11-2025 End: 03-11-2025 ambulatory DAVE AMBROCIO Not Available Start: 03-09-2025 End: 03-09-2025 Clinisync Result Encounter Evelyn Tariq SUBCONTRACT ADMINISTRATOR Work Phone: [facility] Unsolicited Start: 03-09-2025 End: 03-09-2025 Clinisync Result Encounter Evelyn Loreez SUBCONTRACT ADMINISTRATOR Work Phone: [facility] Unsolicited Start: 02-25-2025 End: 02-25-2025 Clinisync Result Encounter Evelyn Chandni SUBCONTRACT ADMINISTRATOR Work Phone: [facility] Unsolicited Start: 02-25-2025 End: 02-25-2025 Clinisync Result Encounter Evelyn Chandni SUBCONTRACT ADMINISTRATOR Work Phone: [facility] Unsolicited Start: 02-24-2025 End: 02-24-2025 Patient encounter procedure Evelyn Chandni SUBCONTRACT ADMINISTRATOR Work Phone: [facility] Comment on above: Encounter for subseq uent annual wellness visit (AWV) in Medicare patient (Primary Dx); 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 ([facility]/HCC); Primary hypertension (CMS/HCC); B12 deficiency; Hypothyroidism, unspecified type (CMS/HCC); Mixed hyperlipidemia (CMS/HCC); Screening mammogram, encounter for; Colon cancer screening declined; Dyslipidemia (CMS/HCC) Start: 02-24-2025 End: 02-24-2025 Refill Evelyn Chandni SUBCONTRACT ADMINISTRATOR Work Phone: [facility] Comment on above: Mild intermittent as thma with status asthmaticus (CMS/HCC) Start: 02-03-2025 End: 02-03-2025 Refill Evelyn Aichholz SUBCONTRACT ADMINISTRATOR Work Phone: [facility] Comment on above: Mild intermittent as thma with status asthmaticus ([facility]) Start: 01-04-2025 End: 01-05-2025 Refill Evelyn Chandni SUBCONTRACT ADMINISTRATOR Work Phone: [facility] Comment on above: Primary hypertension ([facility]); Dyslipidemia ([facility]); 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 ([facility]); Mild intermittent asthma with status asthmaticus ([facility]) Start: 12-31-2024 End: 12-31-2024 Bamboo flowsheet Dave [...] feet Start: 11-24-2024 End: 11-24-2024 ambulatory EVELYN CHANDNI Not Available Start: 11-05-2024 End: 11-05-2024 Refill Duyen Urbano SUBCONTRACT ADMINISTRATOR Work Phone: [facility] Comment on above: Dementia in Alzheime r's 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 ([facility]) Start: 10-12-2024 End: 10-12-2024 Bamboo flowsheet Duyen Urbano SUBCONTRACT ADMINISTRATOR Work Phone: [facility] Start: 10-12-2024 End: 10-12-2024 Bamboo flowsheet Duyen Urbano SUBCONTRACT ADMINISTRATOR Work Phone: [facility] Start: 10-12-2024 End: 10-12-2024 Office outpatient visit 15 minutes Duyen Urbano SUBCONTRACT ADMINISTRATOR Work Phone: [facility] Comment on above: COVID-19 (Primary Dx ); Dyslipidemia (CMS/HCC); Primary hypertension (CMS/HCC) Start: 10-12-2024 End: 10-12-2024 ambulatory DUYEN URBANO Not Available Start: 09-29-2024 End: 09-29-2024 Orders Only Duyen Urbano SUBCONTRACT ADMINISTRATOR Work Phone: [facility] Comment on above: 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) (Primary Dx) Start: 08-08-2024 End: 08-08-2024 ambulatory [facility] Start: 08-05-2024 End: 08-05-2024 ambulatory [facility] Start: 07-23-2024 End: 07-23-2024 ambulatory [facility] Start: 06-15-2024 End: 06-15-2024 Refill Duyen Urbano SUBCONTRACT ADMINISTRATOR Work Phone: [facility] Comment on above: Primary hypertension (CMS/HCC) Start: 10-16-2023 End: 10-16-2023 ambulatory [facility] Start: 09-26-2023 End: 09-26-2023 ambulatory JORGE Seth JULEE [facility] Start: 09-03-2023 End: 09-03-2023 ambulatory MD Shaikh Fisher Work Phone: [facility] Work Phone: Start: 09-03-2023 End: 09-03-2023 Patient encounter procedure MD Shaikh Fisher Work Phone: [facility] [place] Work Phone: Start: 12-20-2022 End: 12-20-[address] GEOFFREY COPELAND . 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 EVELYN TARIQ Facility:H1 Start: 07-12-2022 End: 07-13-2022 ambulatory SHAIKH Deon FISHER Facility:[facility]1 Start: 04-03-2022 End: 04-03-[address] MIRELLA GUEVARA Facility:[facility]1 Procedures Date Procedure Procedure Detail Performing Clinician Start: 05-15-2025 Plain X-ray of right wrist Shaikh Natalia FELIX Work Phone: Start: 03-09-2025 End: 03-09-2025 Screening mammography bi 2-view breast inc cad Evelyn Tariq SUBCONTRACT ADMINISTRATOR Work Phone: Start: 02-25-2025 TB UA (CLEAN/CATCH) MICROSCOPIC IF INDICATE Evelyn Tariq SUBCONTRACT ADMINISTRATOR Work Phone: Start: 08-27-2023 Mammography Duyen desai SUBCONTRACT ADMINISTRATOR Work Phone: Plan of Treatment Date Care Activity Detail Author Start: 03-09-2026 Screening for malign ant neoplasm of breast Mammogram [facility] Start: 03-01-2026 End: 03-01-2026 Patient encounter procedure 03/01/2026 10:30 AM EDT Office Visit [facility] [address] [place] [phone] Evelyn Tariq NP [address] [place] [phone] [facility] Start: 02-24-2026 Screening for malign ant neoplasm of colon Colorectal Cancer Screening [facility] Comment on above: Postponed from 01/07 (Patient Refused) Start: 05-31-2025 End: 05-31-2025 Patient encounter procedure 05/31/2025 9:40 AM EDT Office Visit [facility] [address] [place] [address] Evelyn Tariq, AJIT [address] [place] [address] [facility] Start: 05-20-2025 End: 05-20-2025 Patient encounter procedure [facility] Comment on above: Pain due to onychomy cosis of toenails of both feet (Primary Dx); Venous insufficiency Start: 05-17-2025 Influenza vaccination Influenza Vacc ine (#1) [facility] Start: 03-11-2025 End: 03-11-2025 Patient encounter procedure [facility] Comment on above: Pain due to onychomy cosis of toenails of both feet (Primary Dx); Venous insufficiency Start: 02-24-2025 End: 02-24-2026 CBC W Auto Differential panel - Blood CBC and differential Lab Routine 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) B12 deficiency Hypothyroidism, unspecified type (CMS/HCC) Expected: 02/24/2025 (Approximate), Expires: 02/24/2026 [facility] Work Phone: Comment on above: Expected: 02/24/2025 (Approximate), Expires: 02/24/2026 Start: 02-24-2025 End: 02-24-2026 Cobalamin (Vitamin B12) [Mass/volume] in Serum or Plasma Vitamin B12 Lab Routine 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) B12 deficiency Expected: 02/24/2025 (Approximate), Expires: 02/24/2026 [facility] Comment on above: Expected: 02/24/2025 (Approximate), Expires: 02/24/2026 Start: 02-24-2025 End: 02-24-2026 Comprehensive metabolic 2000 panel - Serum or Plasma Comprehensive metabolic panel Lab Routine Primary hypertension (CMS/HCC) Mixed hyperlipidemia (CMS/HCC) Expected: 02/24/2025 (Approximate), Expires: 02/24/2026 [facility] Comment on above: Expected: 02/24/2025 (Approximate), Expires: 02/24/2026 Start: 02-24-2025 End: 02-24-2026 Lipid 1996 panel - Serum or Plasma Lipid panel Lab Routine Mixed hyperlipidemia (CMS/HCC) Expected: 02/24/2025 (Approximate), Expires: 02/24/2026 [facility] Comment on above: Expected: 02/24/2025 (Approximate), Expires: 02/24/2026 Start: 02-24-2025 End: 04-26-2026 MG Breast - bilateral Screening Bilateral screening mammogram Imaging Routine Screening mammogram, encounter for Expected: 02/24/2025 (Approximate), Expires: 04/26/2026 [facility] Comment on above: Expected: 02/24/2025 (Approximate), Expires: 04/26/2026 Start: 02-24-2025 End: 02-24-2026 Microalbumin/Creatinine panel in random Urine Microalbumin / creatinine, urine ratio Lab Routine Primary hypertension (CMS/HCC) Expected: 02/24/2025 (Approximate), Expires: 02/24/2026 [facility] Comment on above: Expected: 02/24/2025 (Approximate), Expires: 02/24/2026 Start: 02-24-2025 End: 02-24-2026 Thyrotropin [Units/volume] in Serum or Plasma TSH Lab Routine Hypothyroidism, unspecified type (CMS/HCC) Expected: 02/24/2025 (Approximate), Expires: 02/24/2026 [facility] Comment on above: Expected: 02/24/2025 (Approximate), Expires: 02/24/2026 Start: 02-24-2025 End: 02-24-2026 Thyroxine (T4) free [Mass/volume] in Serum or Plasma T4, free Lab Routine Hypothyroidism, unspecified type (CMS/HCC) Expected: 02/24/2025 (Approximate), Expires: 02/24/2026 [facility] Comment on above: Expected: 02/24/2025 (Approximate), Expires: 02/24/2026 Start: 02-24-2025 End: 02-24-2026 Urinalysis complete panel - Urine Urinalysis with reflex microscopic (clean catch) Lab Routine Primary hypertension ([facility]) Expected: 02/24/2025 (Approximate), Expires: 02/24/2026 [facility] Comment on above: Expected: 02/24/2025 (Approximate), Expires: 02/24/2026 Start: 02-24-2025 End: 02-24-2025 Patient encounter procedure 02/24/2025 10:00 AM EDT Office Visit [facility] [address] [place] [phone] Evelyn Tariq, AJIT [address] [place] [phone] [facility] Start: 01-05-2025 Medicare Annual Wellness (AWV) Medicare Annual Wellness (AWV) [facility] Start: 12-31-2024 End: 12-31-2024 Patient encounter procedure 12/31/2024 11:30 AM EDT Office Visit [facility] [address] [facility] [address] [place] [phone] Dave Ambrocio, DPM [address] [facility] [address] [place] [address] [facility] Start: 11-24-2024 End: 11-24-2024 Patient encounter procedure 11/24/2024 9:20 AM EDT Office Visit [facility] [address] [place] [phone] Evelyn Tariq NP [address] [place] [phone] [facility] Start: 11-16-2024 End: 11-16-2024 Patient encounter procedure 11/16/2024 10:00 AM EST Office Visit [facility] [address] [place] [address] Duyen Urbano, AJIT [address] [place] [address] [facility] Start: 10-12-2024 End: 10-12-2024 Patient encounter procedure 10/12/2024 10:00 AM EST Office Visit [facility] [address] [place] [address] Duyen Urbano, AJIT [address] [place] [address] Arrived [facility] Comment on above: Arrived Start: 08-27-2024 Screening for malign ant neoplasm of breast Mammogram [facility] Start: 08-17-2024 End: 08-17-2024 Patient encounter procedure 08/17/2024 10:30 AM EST Office Visit [facility] [address] [place] [address] Duyen Urbano, SUBCONTRACT ADMINISTRATOR [address] [place] [address] [facility] Start: 05-17-2024 Influenza vaccination Influenza Vacc ine (#1) [facility] Start: 09-16-2023 Screening for malign ant neoplasm of colon [facility] Start: 07-16-2009 Pneumococcal Vaccine : 65+ Years (2 of 2 - PCV) Pneumococcal Vaccine: 65+ Years (2 of 2 - PCV) [facility] Start: 1950 Screening for malign ant neoplasm of colon [facility] XR Wrist - right GE 3 Views [facility] Immunizations Immunization Date Immunization Notes Care Provider Fa cility 12-02-2024 Pneumococcal Conjuga te PCV 20 Evelyn Tariq SUBCONTRACT ADMINISTRATOR Work Phone: [facility] 12-02-2024 tetanus toxoid, redu kirby diphtheria toxoid, and acellular pertussis vaccine, adsorbed Evelyn Tariq SUBCONTRACT ADMINISTRATOR Work Phone: [facility] 12-02-2024 zoster vaccine recombinant Evelyn Tariq SUBCONTRACT ADMINISTRATOR Work Phone: [facility] 07-11-2024 influenza, high dose seasonal, preservative-free Dave Ambrocio DPM Work Phone: [facility] 07-11-2024 SARS-COV-2 (COVID-19 ) vaccine, mRNA, spike protein, LNP, PF, kristi-sucrose, 30 mcg/0.3 mL Dave Ambrocio DPM Work Phone: [facility] 07-11-2024 influenza virus vacc ine, unspecified formulation Evelyn Tariq SUBCONTRACT ADMINISTRATOR Work Phone: [facility] 07-13-2023 Influenza, High-dose Seasonal, Quadrivalent, Preservative Free Dave Ambrocio DPM Work Phone: [facility] 07-13-2023 influenza virus vacc ine, unspecified formulation Duyen Urbano SUBCONTRACT ADMINISTRATOR Work Phone: [facility] 09-02-2015 zoster vaccine, live Linda Keenank SUBCONTRACT ADMINISTRATOR Work Phone: [facility] 09-14-2014 influenza, injectabl e, quadrivalent, contains preservative Dave Ambrocio DPM Work Phone: [facility] 07-16-2008 pneumococcal polysaccharide vaccine, 23 valent Duyen Barnestrick SUBCONTRACT ADMINISTRATOR Work Phone: [facility] Payers Date Payer Category Payer Self-pay 2025 Unknown [id number] 2023 Medicare (Managed Care) [facility]LY [facility] [id number] 2023 Unknown [employer] [id number] 2023-Present [address] [place] [address] [id number] 2023 Medicare [id number] 1959 Unknown [id number] 1959 Unknown [id number] 1952 Unknown [id number] 2.16.840.1.606681.3.579. 2.593 1952 Unknown [id number] 2.16.840.1.076590.3.579. 2.593 1952 Unknown [id number] 2.16.840.1.629037.3.579. 2.593 1952 Unknown [id number] 2.16.840.1.986037.3.579. 2.593 1952 Unknown [id number] 2.16.840.1.369942.3.579. 2.593 1952 Unknown [id number] 2.16.840.1.135287.3.579. 2.593 1952 Unknown [id number] 2.16.840.1.867324.3.579. 2.593 1952 Unknown [id number] 2.16.840.1.045678.3.579. 2.593 1952 Unknown [id number] 2.16.840.1.529548.3.579. 2.593 1952 Unknown [id number] 2.16.840.1.910540.3.579. 2.1286 1952 Unknown [id number] 2.16.840.1.540809.3.579. 2.1286 1952 Unknown [id number] 2.16.840.1.864690.3.579. 2.1286 1952 Unknown [id number] 2.16.840.1.698994.3.579. 2.128 1952 Unknown [id number] 2.16.840.1.731211.3.579. 2.1286 1952 Unknown [id number] 2.16.840.1.526155.3.579. 2.1286 1952 Unknown [id number] 2.16.840.1.087011.3.579. 2.1259 1952 Unknown [id number] 2.16.840.1.844479.3.579. 2.1259 1952 Unknown [id number] 2.16.840.1.964199.3.579. 2.1259 1952 Unknown [id number] 2.16.840.1.021388.3.579. 2.1259 1952 Unknown [id number] 2.16.840.1.702976.3.579. 2.1259 1952 Unknown [id number] 2.16.840.1.194552.3.579. 2.1259 Medicare Medicare [id number] Unknown [id number] 2.16.840.1.538756.3.579. 2.531 Social History Date Type Detail Facility Tobacco smoking stat [facility] Unknown if ever smoked [facility] Work Phone: Start: 1950 Sex Assigned At Female F [facility] Start: 01-06-2024 [facility] Start: 01-06-2024 Tobacco use and exposure Smoke less tobacco non-user [facility] Start: 04-14-2024 End: 05-20-2025 Alcoholic beverage intake Lifetime non-drinker (finding) [facility] [...] [OSQ] Very much [facility] (I/We) worried whedena er (my/our) food would run out before (I/we) got money to buy more. Never true [facility] Start: 1950 Sex assigned at Not on file [facility] Work Phone: Sex Female (finding) [facility] NEGATED: Highlighted rowStart: NINF History of tobacco use Passive smoker [facility] Functional Status Date Assessment Result Facility 02-24-2025 Patient Health Quest ionnaire 2 item (PHQ-2) [Reported] [facility] Clinical Notes 11-10-2021 to 05-20-2025 Dave Ambrocio DPM - 05/20/2025 11:20 AM EDT Note Date & Type Note Facility 05-20-2025 History of Presen t illness Narrative Patient: Kevon Cartagena Beth : 1950 PCP: Navneet Vanegas MD SUBJECTIVE [...] of venous stasis to b/l lower extremities Patient also presents with complaints of 2nd toe rubbing against the big toe and slight overlapping of toes that causes painful ambulation has tried wider shoe gear and Band-Aids with minimal improvement Allergies: Allergies Allergen Reactions Morphine Itching Other [...] not see ENT due to [facility]. Mild cognitive impairment with memory loss Mild [...] 0 min Stress: Stress Concern Present (08/12/2023) [employer] - Occupational Stress Questionnaire Feeling of Stress : Very much Social Connections: Moderately Integrated (08/12/2023) Social Connection and Isolation Panel [NHANES] Frequency of Communication with Friends and Family: More than three times a week Frequency of Social Gatherings with Friends and Family: More than three times a week Attends [employer]: 1 to 4 times per year [...] b/l feet. +1 pitting edema to bilateral ankles. Slight PIPJ rubor to bilateral 2nd digits VASC: Positive palpable pedal pulses bilaterally NEURO: Gross sensation intact to bilateral feet ORTHO: Positive pain on palpation to toenails of the left 1,2,3,4,5 toes and right 1,2,3,4,5 toes Slight adduction of the 2nd digit on to the great toe ofbilateral feet ASSESSMENT 1. Pain due to onychomycosis of toenails of both feet 2. Venous insufficiency 3. Acquired deformity of left toe 4. Acquired deformity of right toe PLAN Discussed proper foot care with patient today. Debride nails in length and thickness digits 1 through 10 Visit spent with patient education on condition and treatment of condition. Pt to continue with elevation of feet while resting or NWB. Discussed toe spacing dispensed toe spacers today and condition worsen to contact Podiatry as surgical intervention may be warranted Dave Ambrocio DPM documented in this encounter [facility] 05-15-2025 Evaluation note Diagnosis Onset Date Resolution Bursitis of right wrist acute May 15 9:28am [facility] Work Phone: 1(368) 853-646706-26-2025 History of Present illness Narrative* Dave Ambrocio, [place] - 03/11/2025 11:30 AM EDT Patient: Kevon Campos : 1950 PCP: Navneet [...] not see ENT due to [facility]. Mild cognitive impairment with memory loss Mild [...] 0 min Stress: Stress Concern Present (08/12/2023) [employer] - Occupational Stress Questionnaire Feeling of Stress : Very much Social Connections: Moderately Integrated (08/12/2023) Social Connection and Isolation Panel [NHANES] Frequency of Communication with Friends and Family: More than three times a week Frequency of Social Gatherings with Friends and Family: More than three times a week Attends [employer]: 1 to 4 times per year [...] NWB. Dave Ambrocio DPM [id number] History of Present illness Narrative* Evelyn Tariq, AJIT - 02/24/2025 10:00 AM EDT Images from [...] not see ENT due to [facility]. Mild cognitive impairment with memory loss Mild [...] SOB -who ordered lab work, EKG, ECHOand Tliscan for her - labs/results reviewed and d/w [...] - 02/24/2025 6:26 AM EDTAssociated Problem(s): Hyperlipidemia (CMS/HCC) On statin therapy Check labs yearly and prn dose changes * Evelyn Tariq NP - 02/24/2025 6:25 AM EDTAssociated Problem(s): Hypothyroid (CMS/HCC) Check labs , does not currently take any supplement * Evelyn Tariq NP - 02/24/2025 6:25 AM EDTAssociated Problem(s): B12 deficiency Check labs * Evelyn Tariq NP - 02/24/2025 6:24 AM EDTAssociated Problem(s): Hypertension (CMS/HCC) Please check blood pressure daily and record DASH diet Limit caffeine Take medication as directed Contact office if chest pain, pressure, dizziness, shortness of breath, swelling legs Recommend slow position changes Current meds: losartan * Evelyn Tariq NP - 02/24/2025 6:24 AM EDTAssociated Problem(s): 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 I didn't see this one listed. PAUL [facility] [id number] Miscellaneous Notes* Telephone Encounter - Valencia Herbert - 01/04/2025 11:48 AM EDT Mirtazapine 7.5 mg once at night. I didn't see this one listed. PAUL documented in this [facility]04-17-2025 History of Present illness Narrative* Dave Ambrocio DPM - 12/31/2024 11:30 AM EDT Patient: Kevon Campos : 1950 PCP: Qi [...] have tried no treatments for the condition. Statesswelling worstens with prolonged standing activities. Allergies: Allergies Allergen Reactions Morphine Itching Other Reaction(s): Hallucinations Oxycodone-Acetaminophen Itching Wound Dressing Adhesive Other Reaction(s): Other (See Comments) redness Past Medical History: Past Medical History: Diagnosis Date Asthma Chest pain Chronic depression ([facility]) ; Was poorly controlled and was previously started on bupropion Tolerating it without adverse effects Dyspnea Family history of heart disease Hypertension ([facility]) Hypothyroidism, adult ([facility]) was previously treated with 25 mcg [...] not see ENT due to [facility] home. Mild cognitive impairment with memory loss Mild [...] 0 min Stress: Stress Concern Present (08/12/2023) [employer] - Occupational Stress Questionnaire Feeling of Stress : Very much Social Connections: Moderately Integrated (08/12/2023) Social Connection and Isolation Panel [NHANES] Frequency of Communication with Friends and Family: More than three times a week Frequency of Social Gatherings with Friends and Family: More than three times a week Attends [employer]: 1 to 4 times per year [...] edema. Discussed condition in detail. Recommendation for mkhv-gmh-ekljzyn compression stockings at this time and may consider prescription stockings in the future. Dave Ambrocio DPM documented in this encounterShriners Hospitals for [id number] History of Present illness Narrative* Duyen Urbano NP - 10/12/2024 10:32 AM ESTAssociated Problem(s): COVID-19 Was seen in ED on 10/02 for COVID and ear infection. Was tx with Augmentin for otitis media and tylenol for fever/pain. Reports mild cough intermittently still persists. States most symptoms have since subsided. No complaints or concerns at this time. Denies shortness of breath/chest pain/ear pain/dizziness/N/V/D. * Duyen Urbano NP - 10/12/2024 10:00 AM EST Images from the original note were not [...] Neurological: Negative for dizziness, tremors, syncope, weakness, light- headedness and headaches. Psychiatric/Behavioral: Negative for decreased concentration and suicidal ideas. The patient is notnervous/anxious. Hematological: Does not bruise/bleed easily. Endocrine: Negative [...] of breath/chest pain/ear pain/dizziness/N/V/D. documented in this encounterShriners Hospitals for [id number] Instructions* Patient Instructions* Duyen Urbano NP - 10/12/2024 10:00 AM [...] THE [facility] EMERGENCY DEPARTMENT. documented in this encounterShriners Hospitals for [id number] NotePROCEDURE: [employer] Sign[employer] HDXT 1.5 Sagittal T1, T2, STIR [...] and signed by Michael Cristina on 11/10/2021 1522[facility] SpecialistEvaluation noteNo assessment information availableOhiohealth Southeastern Medical Center Work Phone: Evaluation note* Diagnosis Primary hypertension (CMS/HCC) Unspecified essential hypertension documented in this encounter [facility] HealthcareEvaluation note* Diagnosis Mild intermittent asthma [...] disturbance (CMS/HCC)- Primary documented in this encounter [facility] HealthcareEvaluation note* Diagnosis Mild intermittent asthma [...] remission (HCC) (CMS/HCC) Screening mammogram, encounter for Primary hypertension (CMS/HCC) [...] major depressive disorder, in partial remission (HCC) (CMS/[facility]) Screening mammogram, encounter for Mild intermittent asthma [...] asthmaticus (HCC) documented in this encounter [facility] HealthcareEvaluation note* Diagnosis Onset Date Resolution Status Admit Date Bursitis of right wrist acute A ugust 2024 9:28am [facility] Work Phone: Evaluation note* Diagnosis Mild intermittent asthma with status [...] screening declined Dyslipidemia Other and unspecified hyperlipidemia Acquired deformity of left toe- Primary Pain due to onychomycosis of toenails of both feet Venous insufficiency Unspecified venous (peripheral) insufficiency Acquired deformity of right toe documented in this encounter [facility] HealthcareReason for referral (narrative)No reason for referral information availableUniversity Hospitals [facility] Work Phone: Summary Purpose Family History No Family History Records FoundNo Family History Records FoundNo Family History Records FoundNo Family History Records FoundNo Family History Records FoundNo Family History Records Found Advance Directives No Advanced Directives Records Found Advance Directive Response Recorded Date/ Time Advance Directives No August 9:55am Advance Directive Response Recorded Date/ Time Advance Directives No May 11, 2025 4:19pm Chief Complaint and Reason for Visit Chief Complaint Admit Date right wrist pain, no injury May 15, 2025 9:28am M25.531 May 15, 2025 10 :08am Reason for Visit Admit Date Bursitis of right wrist May 15 9:28am Chief Complaint G31.84 Chief Complaint Admit Date right wrist pain, no injury May 15, 2025 9:28am Additional Source Comments INFORMATION SOURCE (unrecogn ized section and content) DATE CREATED AUTHOR 11/11/2021 [facility] dical Specialist DATE CREATED AUTHOR AUTHOR'S ORGANIZ ATION 12/21/2022 [facility] DATE CREATED AUTHOR AUTHOR'S ORGANIZ ATION 10/20/2023 [facility] DATE CREATED AUTHOR AUTHOR'S ORGANIZ ATION 08/11/2024 [facility] DATE CREATED AUTHOR AUTHOR'S ORGANIZ ATION 05/16/2025 [facility] ysician Group DATE CREATED AUTHOR AUTHOR'S ORGANIZ ATION 05/22/2025 [facility] dical Specialists EPIC Care Teams (unrecognized sec tion and content) Team Status: Active Member Role Status Dates Shaikh Natalia MD Primary Care Provider Active Team Status: Inactive Member Role Status Dates Shaikh Natalia MD Primary Care Provider Active Jorge Ladd DO Attending Provider Active Director Cardiology Relationship Specialty Start Date End Date Shaikh Fisher MD [address] [place] [phone] PCP - Devoted 09/16/23 Navneet Vanegas MD [address] [place] [phone] PCP - General Family Medicine 05/26/24 Duyen Urbano NP [address] [place] [phone] Nurse Practitioner Family Medicine 05/26/24 Director Cardiology Relationship Specialty Start Date End Date Shaikh Fisher MD [address] [place] [phone] PCP - Devoted 09/16/23 Navneet Vanegas MD [address] [place] [phone] PCP - General Family Medicine 05/26/24 Duyen Urbano NP [address] [place] [address] Nurse Practitioner Family Medicine 05/26/24 Director Cardiology Relationship Specialty Start Date End Date Shaikh Fisher MD [address] [place] [phone] PCP - Devoted 09/16/23 Qi Andrade MD [address] [place] [facility] [address] PCP - General Family Medicine 10/06/24 Duyen Urbano NP [address] [place] [phone] Nurse Practitioner Family Medicine 05/26/24 Director Cardiology Relationship Specialty Start Date End Date Shaikh Fisher MD [address] [place] [phone] PCP - Devoted 09/16/23 Qi Andrade MD [address] [place] [facility] [address] PCP - General Family Medicine 10/06/24 Duyen Urbano NP [address] [place] [phone] Nurse Practitioner Family Medicine 05/26/24 Director Cardiology Relationship Specialty Start Date End Date Shaikh Fisher MD [address] [place] [phone] PCP - Devoted 09/16/23 Qi Andrade MD [address] [place] [facility] [address] PCP - General Family Medicine 10/06/24 Duyen Urbano NP [address] [place] [address] Nurse Practitioner Family Medicine 05/26/24 Director Cardiology Relationship Specialty Start Date End Date Shaikh Fisher MD [address] [place] [address] PCP - Devoted 09/16/23 Qi Andrade MD [address] [place] [phone] PCP - General Family Medicine 10/06/24 Duyen Urbano NP [address] [place] [address] Nurse Practitioner Family Medicine 05/26/24 Director Cardiology Relationship Specialty Start Date End Date Shaikh Fisher MD [address] [place] [phone] PCP - Devoted 09/16/23 Qi Andrade MD [address] [place] [phone] PCP - General Family Medicine 10/06/24 Duyen Urbano NP [address] [place] [address] Nurse Practitioner Family Medicine 05/26/24 Director Cardiology Relationship Specialty Start Date End Date Shaikh Fisher MD [address] [place] [phone] PCP - Devoted 09/16/23 Qi Andrade MD [address] [place] [address] PCP - General Family Medicine 10/06/24 Duyen Urbano NP [address] [place] [address] Nurse Practitioner Family Medicine 05/26/24 Director Cardiology Relationship Specialty Start Date End Date Shaikh Fisher MD [address] [place] [phone] PCP - Devoted 09/16/23 Qi Andrade MD [address] [place] [phone] PCP - General Family Medicine 10/06/24 Duyen Urbano NP [address] [place] [phone] Nurse Practitioner Family Medicine 05/26/24 Director Cardiology Relationship Specialty Start Date End Date Shaikh Fisher MD [address] [place] [phone] PCP - Devoted 09/16/23 Navneet Vanegas MD [address] [place] [address] PCP - General Family Medicine 02/23/25 Duyen Urbano NP [address] [place] [address] Nurse Practitioner Family Medicine 05/26/24 Evelyn Tariq NP [address] [place] [phone] Nurse Practitioner Family Medicine 02/23/25 Director Cardiology Relationship Specialty Start Date End Date Shaikh Fisher MD [address] [place] [phone] PCP - Devoted 09/16/23 Navneet Vanegas MD [address] [place] [phone] PCP - General Family Medicine 02/23/25 Duyen Urbano NP [address] [place] [phone] Nurse Practitioner Family Medicine 05/26/24 Evelyn Tariq NP [address] [place] [phone] Nurse Practitioner Family Medicine 02/23/25 Director Cardiology Relationship Specialty Start Date End Date Shaikh Fisher MD [address] [place] [address] PCP - Devoted 09/16/23 Navneet Vanegas MD [address] [place] [phone] PCP - General Family Medicine 02/23/25 Duyen Urbano NP [address] [place] [address] Nurse Practitioner Family Medicine 05/26/24 Evelyn Tariq NP [address] [place] [address] Nurse Practitioner Family Medicine 02/23/25 Director Cardiology Relationship Specialty Start Date End Date Shaikh Fisher MD [address] [place] [phone] PCP - Devoted 09/16/23 Navneet Vanegas MD [address] [place] [address] PCP - General Family Medicine 02/23/25 Duyen Urbano NP [address] [place] [address] Nurse Practitioner Family Medicine 05/26/24 Evelyn Tariq NP [address] [place] [address] Nurse Practitioner Family Medicine 02/23/25 Director Cardiology Relationship Specialty Start Date End Date Shaikh Fisher MD [address] [place] [address] PCP - Devoted 09/16/23 Navneet Vanegas MD [address] [place] [phone] PCP - General Family Medicine 02/23/25 Duyen Urbano NP [address] [place] [phone] Nurse Practitioner Family Medicine 05/26/24 Evelyn Tariq NP [address] [place] [phone] Nurse Practitioner Family Medicine 02/23/25 Team Status: Inactive Member Role Status Dates Shaikh Natalia MD Primary Care Provider Active Start: May 15, 2025 End: May 15, 2025 Charley Lam APRN Attending Provider Active Start: May 15, 2025 End: May 15, 2025 Team Status: Active Member Role Status Dates Shaikh Natalia MD Primary Care Provider Active Start: May 15, 2025 Charley Lam APRN Attending Provider Active Start: May 15, 2025 Director Cardiology Relationship Specialty Start Date End Date Shaikh Fisher MD [address] [place] [phone] PCP - Devoted 09/16/23 Navneet Vanegas MD [address] [place] [address] PCP - General Family Medicine 02/23/25 Duyen Urbano NP [address] [place] [address] Nurse Practitioner Family Medicine 05/26/24 Evelyn Tariq NP [address] [place] [phone] Nurse Practitioner Family Medicine 02/23/25 Director Cardiology Relationship Specialty Start Date End Date Shaikh Fisher MD [address] [place] [phone] PCP - Devoted 09/16/23 Navneet Vanegas MD [address] [place] [phone] PCP - General Family Medicine 02/23/25 Duyen Urbano NP [address] [place] [address] Nurse Practitioner Family Medicine 05/26/24 Evelyn Tariq NP [address] [place] [address] Nurse Practitioner Family Medicine 02/23/25 Goals (unrecognized section and content) Goals may be documented in a n alternate sectionGoals may be documented in an alternate sectionGoals may be documented in an alternate section Reason for Visit (unrecogniz ed [...] BE BASED ON THE PRIMARY CLINICAL RECORDS. [employer] [facility]. provides no warranty or guarantee of the accuracy or completeness of information in this document.
[2025-05-31 11:32] LABS: Alanine Aminotransferase 12 U/L (14-59); Albumin Globulin Ratio 0.8; Albumin Level 3.2 g/dL (3.4-5.0); Alkaline Phosphatase 85 U/L (46-116); Anion Gap 10.5; Aspartate Amino Transferase 11 U/L (15-37); Blood Urea Nitrogen 15.0 mg/dL (7.0-18.0); Calcium 9.3 mg/dL (8.5-10.1); Carbon Dioxide 29.8 mmol/L (21.0-32.0); Chloride 107 mmol/L (98-107); Cholesterol 205 mg/dL (<=200); Estimated GFR (African America >60 (>=60 mL/min/1.73m^2); Estimated GFR (Non-African Ame 51 (>=60 mL/min/1.73m^2); Globulin 4.0 g/dL; Glucose 92 mg/dL (74-106); HDL Cholesterol 69 mg/dL (40-60); Potassium 4.3 mmol/L (3.5-5.1); Sodium 143 mmol/L (136-145); Total Protein 7.2 g/dL (6.4-8.2); Triglycerides 88 mg/dL (<=150); VLDL CHOLESTEROL 17.6 mg/dL
== END 2025-05-31 10:46 | disposition home or self-care (01) ==
LOC: LAB 10:46
PROVIDERS: PCP Nurse Practitioner; Visit Provider Nurse Practitioner
DX: E78.2 Mixed hyperlipidemia (principal); I10 Essential (primary) hypertension
CPT/HCPCS: 36415; 80053; 80061

== ENCOUNTER 2025-07-28 12:20 | Outpatient (OUT) | payer OTHER, SELFPAY ==
--- OUTSIDE RECORDS SUMMARY | 2024-09-21 05:00 | XMS_ITS ---
Author Organization The [facility] in [place] Address [address] [place] [address] Care Team Providers Care Chucker Name Role Phone Micheline Obregon Primary Care Provider REASON FOR VISIT 2 month f/u Encounters Encounter Location Date Provider Diagnosis [facility] [address] [place] [address] 09/21/2024 Micheline Obregon Plan Of Treatment No Information Progress Notes * Nani CAMPOSDOB: [birth year] (75 yo F)Acc No.[id number]:09/21/2024 UNLOCKED PROGRESS NOTE Progress Note Patient: Nani FRANCE :?Micheline Obregon CNP (TTC)DOB:1950 ???Age:74 Y???Sex:FemaleDate:09/21/2024Phone:[phone]:[address] [place] [id number] Subjective: * Chief Complaints: * 1 . 2 month f/u. * Medical History: Objective: * Vitals: Assessment: Plan: * Treatment: * * Electronic signature of Micheline Obregon NP, DENTAL RECEPTIONIST.DATA [email or web address] on 07/28/2025 at 12:24 PM ESTSign off status: PendingVisit Status:?CANC (Cancelled) * Provider: Pao Obregon (TTC), DATA TYPIST Date: 0 09/21/2024 Generated for Printing/Faxing/eTransmitting on:?07/28/2025 12:24 PM EST
--- OUTSIDE RECORDS SUMMARY | 2025-07-28 07:04 | XMS_ITS | Continuity of Care Document ---
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 Name Role Phone Shaikh ELVIRA Fisher Primary Care Provider [phone] Charley Lam APRN Attending Provider Evelyn Tariq NP-C Primary Care Provider Evelyn Tariq NP-C Attending Provider Emily Mendoza APRN Attending Provider [phone] Care Teams Patient Care Team Team Status: Active Member Role/Relationship Status Dates MARTIN SernaC Primary Care Provider Active Visit Care Team Team Status: Inactive Member Role/Relationship Status Dates Shaikh Natalia MD Primary Care Provider Active Start: May 15, 2025 End: May 15, 2025Amilcar Coyle ProviderActiveStart: May 15, 2025 End: May 15, 2025 Visit Care Team Team Status: Inactive Member Role/Relationship Status Dates Shaikh Natalia MD Primary Care Provider Active Start: May 15, 2025 End: May 15, 2025Amilcar Coyle ProviderActiveStart: May 15, 2025 End: May 15, 2025 Visit Care Team Team Status: Inactive Member Role/Relationship Status Dates MARTIN SernaC Primary Care Provider Active Start: May 31, 2025 End: May 31, 2025Damon Serna ProviderActiveStart: May 31, 2025 End: May 31, 2025 Visit Care Team Team Status: Inactive Member Role/Relationship Status Dates CASSIUS Serna Primary Care Provider Active Start: June 29, 2025 End: June 29Amilcar Vincent ProviderActiveStart: June 29, 2025 End: June 29, 2025 Patient Care Team Team Status: Inactive Member Role/Relationship Status Dates CASSIUS Serna Primary Care Provider Active Start: July 28, 2025 End: July 28, 2025Damon Serna ProviderActiveStart: July 28, 2025 End: July 28, 2025 Chief Complaint and Reason for Visit Chief Complaint Admit Date right wrist pain, no injury May 15, 2025 9:28am M25.531 May 15, 2025 10 :08am 3M May 31, 2025 9:46am dog bite on L hand June 29, 2025 1 1:54am Urinary Tract Infection / UTI July 172024 11:23am Reason for Visit Admit Date Bursitis of right wrist May 15 9:28am 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 May 31, 2025 9:46am Depression, major, recurrent, mild Septe mber 2024 9:46am Hypertension May 31, 2025 9:46am Mixed hyperlipidemia May 31 9:46am Dog bite of left hand June 29, 2025 11:54am 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 July 28, 2025 11:23am Hypertension July 28, 2025 11:23am Polyuria July 28, 2025 11:23am UTI symptoms July 28, 2025 11:23am Allergies, Adverse Reactions, Alerts Allergen Type Severity Reaction Last Updated Verified Status acetaminophen Allergy Unknown Itching May 172024 1:11pm Yes Active adhesive Allergy Unknown Unknown Reaction June 29, 2025 10:59am Yes Active morphine Allergy Unknown Itching May 1:11pm Yes Active oxycodone Allergy Unknown Itching May 1:11pm Yes Active Social History Smoking Status Status Start Date End Date Date of Observa tion Never smoked tobacco (finding) June 29, 2025 12:06pm Observation Status Observation Response Date of Response Legal Sex [facility] (finding) [facility] Problems Active Problems Problem Diagnosis/Recorded Date Onset Date Stat Colon cancer screening declined May 28, 2025 1 :15pm Unknown Active Encounter for subsequent [facility] wellness visit (AWV) in Medicare patient May 28, 2025 1:15pm Unknown Active Brief reactive psychosis May 28, 2025 1:15pm U nknown Active Meniere disease of left ear May 28, 2025 1:13p m Unknown Active Polyuria July 28, 2025 12:00pm Unknown Active Dizziness May 28, 2025 1:12pm Unknown Active UTI symptoms July 28, 2025 6:09am Unknown A ctive Arthritis of left acromiocla vicular joint May 28, 2025 1:12pm Unknown Active Confusion May 28, 2025 1:14pm Unknown Active Cardiac murmur May 28, 2025 1:13pm Unknown Active Hypothyroidism May 28, 2025 1:13pm Unknown Active Mixed hyperlipidemia May 28, 2025 1:15pm Unkno wn Active Asthma, mild intermittent May 28, 2025 1:12pm Unknown Active 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 May 28, 2025 1:13pm Unknown Active Delusional disorder May 28, 2025 1:14pm Unknow n Active Dementia in Alzheimer diseas e with early onset May 28, 2025 1:14pm Unknown Active Depression, major, recurrent, mild May 28 1:14pm Unknown Active Hypertension May 28, 2025 1:12pm Unknown Active Medications Medication Status Dose Units Route Directions Qty Days Refills S tart Date Stop Date End Date Reason(s) Instructions Adherence Risperidone 0.5 mg tablet Active 0.5 MG PO Twice daily May 27, 2025 11:00pmComplies with drug therapyLosartan 50 mg tablet ActiveMGPOAugust 2024 11:00pmComplies with drug therapyAtorvastatin 20 mg tabletActiveMGPOAugust 2024 11:00pmComplies with drug therapyAlbuterol Sulfate 90 mcg/actuation HFA aerosol inhalerActiveINHALATIONAugust 2024 11:00pmComplies with drug therapyRisperidone 0.5 mg tabletDiscontinuedMGPOAugust 2024 11:00pmSeptember 12th, 2025 1:16pmMirtazapine 7.5 mg tabletActiveMGPO May 14, 2025 11:00pmComplies with drug therapyPrednisone 20 mg tablet Vjxsncrecijg48ZUJI.JRSYTVB5686Hiture 2024 11:00pmSept2024 1:16pmTake 2 tabs po daily x 4 days, then 1 tab po daily x 4 daysArm Brace misc Discontinued0.Wnlrw70Yoolvt 2024 11:00pmSept2024 1:16pmAs directedAmoxicillin-Pot Clavulanate 875-125 mg ojshqxRhxtkgzyeoar9DCZKXZugux kmfii67446Zwfuvyp 2024 11:00pmNov2024 6:09am Immunizations Immunization Event Date Not Given Reason Dose Number Air Analyst Lot Number Reason(s) Given Vaccine Information Statement (VIS) Detail Administration Location Tetanus, Diphtheria, Pertussis (Tdap) November [id number] Procedures Procedure Date Performed Status XR wrist RT min 3V* May 14, 2025 11:00pm co mpleted Relevant Diagnostic Tests and/or Laboratory Data Laboratory Results Test Collection Date/Time Result Date/Time Result Interpretation Reference Range Result Comment Performing Site Cholesterol/HDL Ratio May 31, 2025 10:09am Sep tember 2024 10:09am 3.0 3.3 - 4.4 LOW RISK4.4 - 7.1 AVERAGE RISK7.1 - 11.0 MODERATE RISK>11.0 HIGH RISK Anion GapSeptember 2024 10:09amSeptember 2024 10:09am10.5Cholesterol LevelSeptember 2024 10:09amSeptember 2024 10:21fv063 mg/dLAbove high normal<=200Albumin/Globulin RatioSeptember 2024 10:09amSeptember 2024 10:09am0.8HDL CholesterolSeptember 2024 10:09amSeptember 2024 10:09am69 mg/dLAbove high -88> or =60 mg/dl - LOW CARDIOVASCULAR RISK<40 mg/dl - HIGH CARDIOVASCULAR RISKAlbuminSeptember 2024 10:09amSeptember 2024 10:09am3.2 g/dLBelow low normal3.4-5.0LDL Cholesterol, Calculated May 31, 2025 10:09amSept2024 10:85il364.0 mg/dL<100 mg/dl HUROQVU493-116 mg/dl NEAR OR ABOVE ZCJHWGK173-485 mg/dl BORDERLINE LMPI236-205 mg/dl HIGH>190 mg/dl VERY HIGHAlkaline PhosphataseSeptember 2024 10:09am May 31, 2025 10:09am85 U/D43-863Roubuyeuxzxva LevelSeptember 2024 10:09amSept2024 10:09am88 mg/dL<=150Alanine Aminotransferase (ALT/SGPT)May 31, 2025 10:09amSept2024 10:09am12 U/LBelow low vjginw68-70XHGG CholesterolSept2024 10:09amSept2024 10:09am17.6 mg/dLAspartate Amino Transf (AST/SGOT)May 31, 2025 10:09am May 31, 2025 10:09am11 U/LBelow low lntduw63-90ZII/Creatinine Ratio May 31, 2025 10:09amSept2024 10:09am14.3Blood Urea Nitrogen May 31, 2025 10:09amSept2024 10:09am15.0 mg/dL7.0-18.0 Calcium LevelSeptember 2024 10:09amSept2024 10:09am9.3 mg/dL 8.5-10.1Chloride LevelSeptember 2024 10:09amSept2024 10:09am 107 mmol/K67-793Tiyqal Dioxide LevelSeptember 2024 10:09amSept2024 10:09am29.8 mmol/L21.0-32.0CreatinineSeptember 2024 10:09amSept2024 10:09am1.05 mg/dLAbove high normal0.55-1.02Estimated GFR ()May 31, 2025 10:09amSept2024 10:09am>60>=60 mL/min/1.73m 2Estimated GFR (Non- AmericanSept2024 10:09am May 31, 2025 10:90lg91Yalqm low normal>=60 mL/min/1.73m 2Globulin May 31, 2025 10:09amSept2024 10:09am4.0 g/dLGlucose Level May 31, 2025 10:09amSept2024 10:09am92 mg/rE76-071Szxcatvth LevelSept2024 10:09amSept2024 10:09am4.3 mmol/L3.5-5.1 Sodium LevelSept2024 10:09amSept2024 10:81ng471 mmol/L 136-145Total BilirubinSept2024 10:09amSept2024 10:09am 0.8 mg/dL0.2-1.0Total ProteinSept2024 10:09amSept2024 10:09am7.2 g/dL6.4-8.2 Diagnostic Imaging Reports Author Rajan Chavez [facility] HospitalAuthoredAunorthern navajo medical centert 2024 10:34amReportDictated Date/TimeDictated ByStatusRadiology ReportAunorthern navajo medical centert 2024 10:34amMacailin Chavez II [facility] CityompleteSt. Mary's [place] [address] XRay Report Signed Patient: Nani Campos MR#: [id number] : 1950 Acct:[id number] Age/Sex: 75 / F ADM Date: 5 Loc: XDUCLY Room: Type: [facility] Attending Dr: Charley Lam APRN Copies to: [...] Chavez M.D. 05/15/2025 10:40 AM Dictation Location: [place] [address] Transcribed By: [facility] 05/15/25 1040 Dictated By: Rajan Chavez II, MD 05/15/25 1034 Signed By: <Electronically signed by Rajan Chavez II, MD in [place]> 05/15/25 1040 Vital Signs Vital Reading Result Reference Range Collection Date/Time Height 60 [in_i] May 15, 2025 8:44rpXneegf63.86 kgAugust 2024 8:36amBody Temperature 97.5 [degF]97.6-99.0August 2024 8:36amHeart Rate84 /xid73-223Oirzrh 2024 8:36amRespiratory rate18 /xgw72-95Edtncy 2024 8:36amOxygen saturation by Pulse cvricpwq80 %95-100August 2024 8:36amBP Scguijbe332 mm[Hg]100-140 May 15, 2025 8:36amBP Dqtyigqvo94 mm[Hg]60-100August 2024 8:36amBMI (Body Mass Index)32.6 kg/o0Tcdtzi 2024 8:41zaWzbrsa83 [in_i]May 31, 2025 8:76gtZuqtwv19.26 kgSeptember 2024 8:51amBody Nvbgnbqmbkl35.5 [degF]97.6-99.0September 2024 8:51amHeart Rate66 /hes97-267Ezytsetaz 2024 8:51amRespiratory rate18 /uvz82-16Ylffwpgjw 2024 8:51amOxygen saturation by Pulse ybhayefk03 %95-100September 2024 8:51amBP Geplqwrf847 mm[Hg]100-140September 2024 8:51amBP Atkmbjynh83 mm[Hg]60-100September 2024 8:51amBMI (Body Mass Index)32.8 kg/h5Dohssxvof 2024 8:51am Trpint74 [in_i]June 29, 2025 11:62amJrrich07.20 kgOcthighlands arh regional medical center 2024 11:02amBody Pazdxmlbqgp79.4 [degF]97.6-99.0Octhighlands arh regional medical center 2024 11:02amHeart Rate 68 /zun58-107Ywsqnbx 2024 11:02amRespiratory rate18 /wrb06-37Rddvqro 2024 11:02amOxygen saturation by Pulse mfkrbtob53 %95-100Octhighlands arh regional medical center 2024 11:02amBP Mebppicr672 mm[Hg]100-140October 2024 11:02amBP Terprgopc48 mm[Hg]60-100October 2024 11:02amBMI (Body Mass Index)32.8 kg/p5Xmarcxz 2024 11:16eyXpczjh78 [in_i]July 28, 2025 11:74pyDjxxba80.82 kg July 28, 2025 11:32amBody Lussiznstqv99.5 [degF]97.6-99.0Nov2024 11:32amHeart Rate74 /bao89-020Qsfsrvyx 2024 11:32amRespiratory rate16 /ddh31-42Sbmcoldo 12th, 2025 11:32amOxygen saturation by Pulse qgqdamiu21 % 95-100Nov2024 11:32amBP Oirkmuvg052 mm[Hg]100-140Nov2024 11:32amBP Phdtwubzp49 mm[Hg]60-100Nov2024 11:32amBMI (Body Mass Index)33.0 kg/s4Ijlhvrfw2024 11:32am Advance Directives Advance Directive Response Recorded Date/ Time Advance Directives No May 4:12pm Insurance Providers Guarantor Nani Campos Address [address] [address]Rkyncqx Info.Home Phone: Coverage Status Update:2025 Payer Group Member ID Coverage Type Subscriber Relationship to Subscriber Effective Date Expiration Date Medicare [id number] Mitzi Mesnard Id: [id number] [address] [address] Home Phone: [employer]CR PFFS Id: [id number] Mitzi Mesnard Id: [id number] [address] [address] Home Phone: [employer] MCR PFFS [id number] A Mesnard Id: [id number] [address] [address] Home Phone: Self Encounters Encounter Location(s) Arrival/Admit Date Discharge/Departure Date Discharge/Departure Disposition Provider(s) Departed Physician/ Provider Office Visit -[facility] [place] May 15, 2025 9:28am May 15, 2025 10:56am Discharged to home care or self care (routine discharge) Tiesha Ruffin APRN Departed Clinical -[facility] [place] May 15, 2025 10:08am May 15, 2025 10:09am Discharged to home care or self care (routine discharge) Tiesha Ruffin APRN Departed Physician/ Provider Office Visit -[facility] [place] May 31, 2025 9:46am May 31, 2025 10:28am Discharged to home care or self care (routine discharge) CASSIUS Serna Departed Physician/ Provider Office Visit -[facility] [place] June 29, 2025 11:54am June 29, 2025 12:26pm Discharged to home care or self care (routine discharge) Emily Mendoza , TRACTOR TRAILER DRIVER Departed Physician/ Provider Office Visit -[facility] [place] July 28, 2025 11:23am July 28, 2025 12:02pm Discharged to home care or self care (routine discharge) Evelyn Tariq , MOTEL OPERATOR-C Recent Diagnosis Onset Date Admit Date Bursitis of right wrist Unknown April 182024 9:28am 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 U nknown May 31, 2025 9:46am Depression, major, recurrent, mild Unknown May 31, 2025 9:46am Hypertension Unknown May 31, 2025 9:46am Mixed hyperlipidemia Unknown May 172024 9:46am Dog bite of left hand Unknown June 292024 11:54am 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 U nknown July 28, 2025 11:23am Hypertension Unknown July 28, 025 11:23am Polyuria Unknown July 28, 11:23am UTI symptoms Unknown July 28, 11:23am Assessments Diagnosis Onset Date Resolution Status Admit Date Bursitis of right wrist deletedAugust 2024 9:28am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 acuteSept2024 9:46amDepression, major, recurrent, mildacuteSeptember 2024 9:46amHypertensionacuteSeptember 2024 9:46amMixed hyperlipidemiaacuteSept2024 9:46amDog bite of left handnoneactive June 29, 2025 11:54am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acute July 28, 2025 11:23amHypertensionacuteNov2024 11:23amPolyuria acuteNov2024 11:23amUTI symptomsacuteNov2024 11:23am Plan of Treatment Author Evelyn Tariq [facility] HospitalAuthoredSept2024 9:34amPlease check blood pressure daily and record DASH diet Limit caffeine Take medication as directed Contact office if chest pain, pressures, dizziness, shortness of breath, swelling in the legs Recommend slow position changes if you develop dizziness with position changes current meds: losartan current meds: risperidone and mirtazapine does not take any meds for alzheimer's , does not follow with neurology initially seen by [facility], pt did not want to go back, and pt's said he does not think at this time she needs to go back. she is able to take care of her ADL's pleasant in today's office visit as well, will continue to monitor meds: atorvastatin check labs yealry and prn dose changes Author Charley Lam [facility] 11:26amX-ray is negative for any acute fracture or dislocation. Does show moderate degenerative changes. Suspect bursitis given new onset swelling. Will try on prednisone taper. Finish course. May use Tylenol as needed. Elevation encouraged. Patient is placed into wrist splint to encourage her to rest area. Recommend follow-up with PCP or Ortho if not gradually improving over the next week. Patient and verbalized understanding. Author Emily Mendoza [facility]October 20[facility] 12:34pmDiscussed diagnosis with patient and in detail. Wound care and dressing applied. Patient reports she is UTD on Tetanus. Will treat today with prophylactic antibiotic. Instructed patient to take antibiotic as directed, complete entire course even if feeling better, take with food and plenty of water. Instructed close monitoring of area. Wound care as discussed. Avoid picking at scab or scrubbing, clean by letting warm soapy water run over. May leave open to air, cover with??non-adherent dressing as needed. Follow up with PCP in the next 2-3 days. Immediate eval by ER if fever, chills, body aches, increase in swelling or redness, red streaking from wound, increase in tenderness, redness, warmth, SOB, difficulty breathing, chest pain, or if any new or concerning symptoms arise. Patient and verbalizes understanding and is agreeable to treatment plan.?? Author Evelyn Tariq [facility]November 2024 6:08amPlease check blood pressure daily and record DASH diet Limit caffeine Take medication as directed Contact office if chest pain, pressures, dizziness, shortness of breath, swelling in the legs Recommend slow position changes if you develop dizziness with position changes current meds: losartan does not take any meds for alzheimer's , does not follow with neurology initially seen by [facility], pt did not want to go back, and pt's said he does not think at this time she needs to go back. she is able to take care of her ADL's pleasant in today's office visit as well, will continue to monitor Future Tests Future scheduled test information is unavailable Pending Tests Test Name Ordered Date Scheduled Date Comprehensive Metabolic Panel May 31 5:36am XR wrist RT min 3V*May 15, 2025 9:04amComprehensive Metabolic PanelNov2024 12:00pm Future Visits Future appointment information is unavailable Future Procedures Procedure Name Ordered Date Scheduled Date Dipstick and Microscopic July 28, 2025 11: 59am Complete Blood Count Auto DiffNov2024 12:00pmUrine CultureNov2024 11:59amAMB POC Ur DipstickNov2024 6:08am Future Medications Future medication information is unavailable Patient Instructions Patient instructions are unavailable Hospital Discharge Instructions Ambulatory Orders* AMB POC Ur Dipstick Time Frame: 07/28/25, Location: Determined By Patient
--- OUTSIDE RECORDS SUMMARY | 2025-07-28 12:25 | XMS_ITS | Clinical Summary ---
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 90 tablet ctive Active Problems ProblemNoted DateDiagnosed DateB12 wndtokoveu60/26/7084Vsslzyklegeu10/30/2014 Resolved Problems ProblemNoted DateDiagnosed DateResolved YplmSsopzystk41/28/202309/ Immunizations ImmunizationAdministration DatesNext DueInfluenza, Injectable, Quadrivalent 09/14/2014Pneumococcal Sitwwomvwxshzt14/31/2008Zoster Live09/02/2015 Family History Medical HistoryRelationNameCommentsBreast cancerMaternal Aunt 1Breast cancer Maternal Aunt 2Breast cancerMaternal Aunt 3RelationNameStatusCommentsMaternal Aunt 1Maternal Aunt 2Maternal Aunt 3 Social History Tobacco UseTypesPacks/DayYears UsedDateSmoking Tobacco: NeverSmokeless Tobacco: Never Tobacco Cessation:Counseling Given: Not Answered PHQ-2AnswerDate RecordedTotal Eudny712/26/2023ChildcareAnswerDate Recorded MnnxszuamAokgxub01/12/2019EmploymentAnswerDate RecordedEmploymentUnknown 02/25/2019Hunger ScreeningAnswerDate RecordedWithin the past 12 months we worried whether our food would run out before we got money to buy more.Never True07/11/2023Within the past 12 months the food we bought just didn't last and we didn't have money to get more.Never True3Purpose - LifeAnswerDate RecordedPurpose and direction in hfnkGafhbfq53/11/2021CommentsNoSex and Gender InformationValueDate RecordedSex Assigned at BirthNot on fileLegal Sex Alnsxe1304/21/2015 11:28 AM EDTGender IdentityNot on fileSexual OrientationNot on file Last Filed Vital Signs Vital SignReadingTime TakenCommentsBlood Neiphvbh243/8407/11/2023 11:54 AM EDT Luzod498807/11/2023 11:54 AM HMGZbhucaszday73.7 ??C (98 ??F)07/11/2023 11:54 AM EDTRespiratory Lwpv7533 11:54 AM EDTOxygen Jraxewgvst86%07/11/2023 11:54 AM EDTInhaled Oxygen Concentration--Dtjfiv02.9 kg (143 lb)07/11/2023 11:54 AM AUUSpemrh712.9 cm (4' 11 )07/11/2023 11:54 AM EDTBody Mass Index28.8807/11/2023 11:54 AM EDT Plan of Treatment Health MaintenanceDue DateLast DoneCommentsTobacco Hxwgrmupu55/24/1964DTaP,Tdap and Td Vaccines (1 - Tdap)01/07/1971Zoster (Shingles) Vaccine (2 of 3)10/28/2015 09/02/2015dult BMI Ajgijzbjn59epression Wagqyhwob96/26/2024 07/11/2023Fall Risk Sogrwezen93OVID-19 Vaccine (5 - 5-26 season)51, 09/14/2021, 01/02/2021, Additional history exists Influenza Avsquzf60/, 09/14/2014RSV ( or age 60+ yrs) (1 - 1-dose 75+ series)01/07/2027 Medical Devices Not on file Insurance * Guarantor: Nani Campos AAccount TypeRelation to PatientDate of PhoneBilling AddressPersonal/LywflzNnfq1950 [address] [place] [address] [place] [address] Care Teams Team MemberRelationshipSpecialtyStart DateEnd Mc Andrade MD [address] [place] [address] PCP - GeneralFamily Gstdkakt12/7/24
--- OUTSIDE RECORDS SUMMARY | 2025-07-28 12:25 | XMS_ITS | Clinical Summary ---
Author Organization [facility] Address [address], [address] [place] [address] Care Team Providers Care Explosives Worker Name Role Phone Michelle Selvin Primary Care Provider Unavailabl e Allergies Active AllergyReactionsCriticalityNoted DateCommentsAdhesive TapeOther (See Comments)Low04/14/2014 redness Oxycodone-KnsuvgfetneflYgjvobe58/10/2014 Medications MedicationSigDispense QuantityRefillsLast FilledStart DateEnd DateStatus sertraline (ZOLOFT) 50 MG tablet Take 50 mg by mouth daily.Active atorvastatin (LIPITOR) 40 MG tablet Take 40 mg by mouth daily.Active albuterol (PROVENTIL HFA;VENTOLIN HFA) 108 (90 BASE) MCG/ACT inhaler Inhale 2 puffs into the lungs every 6 hours as needed.Active albuterol (PROVENTIL) 4 MG tablet Indications:takes 1/4 of a pill as neededTake 1 mg by mouth as needed. Indications: takes 1/4 of a pill as neededActive HYDROcodone-acetaminophen (NORCO) 5-325 MG per tablet 1-2 every 4-6 hours only as needed for pain - up to 8 max per day. RX was called into the [facility] at [phone] about 11:45AM t8/31. Watch for side effects of sedation, nausea, constipation (add a laxative as needed) 100 tablet ctive Active Problems ProblemNoted DateDiagnosed PpslOolnanpycrk20/30/7589Vupgimetakyu54/30/2014 Dizziness Family History Medical HistoryRelationNameCommentsHypertensionFatherHeart DefectMotherHigh CholesterolMotherHypertensionMotherStrokeMotherThyroid DiseaseMotherRelationName StatusCommentsFatherMother Social History Tobacco UseTypesPacks/DayYears UsedDateSmoking Tobacco: NeverSmokeless Tobacco: NeverAlcohol UseStandard Drinks/WeekCommentsNo0 (1 standard drink = 0.6 oz pure alcohol)CommentsNoSex and Gender InformationValueDate RecordedSex Assigned at BirthNot on fileLegal PsrZqwbqv76/10/2013 7:11 PM ESTGender Identity Not on fileSexual OrientationNot on file Last Filed Vital Signs Vital SignReadingTime TakenCommentsBlood Etazlyfa263/70005/16/2014 8:00 AM EDT Xgarn569805/16/2014 8:00 AM PEIFghadxplqff88.7 ??C (99.8 ??F)05/16/2014 8:00 AM EDTRespiratory Ohzu759105/16/2014 8:00 AM EDTOxygen Xqdjiuekba17%05/16/2014 8:00 AM EDTInhaled Oxygen Concentration--Climzw61.4 kg (175 lb)05/14/2014 7:47 AM EDT Cwupmi422.9 cm (4' 11 )05/14/2014 7:47 AM EDTBody Mass Index35.35005/14/2014 7:47 AM EDT Plan of Treatment Not on file Medical Devices ImplantedTypeAreaManufacturerDevice IdentifierShelf Expiration DateModel / Serial / LotUnknownPlateNeckUnknownBilateral: ToesDescription:bilat great toes UnknownBilateral: Knee Insurance Advance Directives * Full Code (Latest Code Status on File) Date ActivatedDate InactivatedComments05/14/2014 7:34 PM05/16/2014 8:41 PM Care Teams Team MemberRelationshipSpecialtyStart DateEnd Date Selvin Martinez PCP - General02/16/14
--- OUTSIDE RECORDS SUMMARY | 2025-07-28 12:25 | XMS_ITS | Patient Health Record ---
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 Name Role Phone Micheline Obregon Primary Care Provider [phone] Allergies No Known Allergies Results Component Value Reference Range Notes UA (Urinalysis, Dipstix only - w/o micro) (Not yet reviewed by provider) Interpretation: Performing Lab: Notes/Report: GLUCOSE - 0 - 133 MG/DL ALBUMIN-NEG - NEG MG/DLBILIRUBIN-NEG - NEG MG/DLSPECIFIC GRAVITY1.0001.001 - 1.035KETONES-NEG - NEG MG/DLBLOOD, UR-PH, UR5.05 - 3TKVGDDQHEVZ3.20.2 - 1 MG/DL NITRITE-NEG - NEGESTERASE (FINA)-NEG - NEG MG/DLCBC AND AUTO DIFF * Reviewed date:08/10/2024 08:37:18 AM Interpretation: Performing Lab:[facility] ([facility]), [address], [place]. [address] PH:[phone] Notes/Report:WBC COUNT5.34.0-11.0 X10E9/LRBC COUNT4.013.80-5.20 X10E12/L BJLVEEUIUT89.211.7-15.5 g/yOGEWVFISCVS61.635-47 %THJ8000-696 fLMCH32.827-34 pg MCHC35.132-36 g/dLRDW13.611.5-15.0 %PLATELET HQFYH114926-099 X10E9/LMPV9.87-12 fLMETAMYELOCYTE2.9XOLL55.0SEG MUCFICOLKW86.3HAJSKIHNNE62.7XIUEDDHF10.0ABSOLUTE NEUTROPHILS4.11.5-6.6 X10E9/LABSOLUTE LYMPHOCYTE0.51.0-3.5 X10E9/LABSOLUTE MONOCYTES0.60-0.9 X10E9/LNEUTROPHIL VACUOLES1+NONEPERFORMED AT [address] [address]MZCGJJJMUERBH METABOLIC PANEL Reviewed date:08/10/2024 08:36:29 AM Interpretation: Performing Lab:[facility] ([facility]), [address] [place] [address], [address] [address] PH:[phone] Notes/Report:AULTUM123288-617 mmol/LPOTASSIUM3.33.5-5.0 mmol/LGGXLWNOF7856-572 mmol/LCARBON PFMMIZB3993-15 mmol/LANION YYW749-45 mmol/LBLOOD UREA VKXTOUKV601- 27 mg/dLCREATININE1.290.40-1.00 mg/dLMETHOD TRACEABLE TO IDMS DMNCKLFSLIUMJWJ488 65-99 mg/dLCALCIUM9.18.5-10.5 mg/dLTOTAL PROTEIN7.06.0-8.0 g/dLALBUMIN3.93.2-5.3 g/dLALKALINE AXAMAYCQIOZ9163-108 U/DLWA198-98 U/ULMI976-31 U/LBILIRUBIN,TOTAL1.1 0.3-1.2 mg/dLeGFR (CKD-EPI) NON-RACE VHSOPCAYD14>59 ml/min/1.73sq.m Reported eGFR is based on the PERFORMED AT [address] [address] CKD-EPI 2020 equation that does not use a race coefficient. URINALYSIS Reviewed date:08/11/2024 09:48:49 AM Interpretation: Performing Lab:[facility], [address] [place] [address].[place]. [address] PH:[phone] Notes/Report:COLORYELLOWYELLOWTURBIDITYHAZYCLEARSPECIFIC GRAVITY1.0201.003-1.035 NITRITENegativeNegativePH,URINE6.05.0-8.5LEUKOCYTE ESTERASENegativeNegative RZPWINJ51Kgofkodp mg/dLGLUCOSE (URINE)NegativeNegative mg/dLKETONES (URINE)Trace Negative mg/dLUROBILINOGEN0.2<1.1 eu/dLBILIRUBIN (URINE)NegativeNegative BLOOD/HGBNegativeNegativeWBC CASTS10 /lpfW.B.TMJFH595-9 /hpfR.B.LWRBA47-6 /hpf AMORPHOUS SEDIMENTPRESENTNONEURIC ACID CRYSTALSPRESENTNONEPERFORMED AT [address] [place], [place] [address]MKIEJ-92, Flu A+B IH (Not yet reviewed by provider) Interpretation: Performing Lab: Notes/Report: COVID-FLU A-FLU B-Control+URINE CULTURE Reviewed date:08/11/2024 09:48:42 AM Interpretation: Performing Lab:[facility] ([facility]), [facility], [place]. [address] PH:[phone] Notes/Report:URINE CULTURERESULTS BELOW CULTURE RESULTS <10,000 ORGANISMS/ML NORMAL URO GENITAL DELMY REPORT STATUS 08/10/2024 FINAL SPECIMEN DESCRIPTION CLEAN CATCH MIDSTREAM URINE PERFORMED AT [address],[place] [address] Reason For Referral Diagnosis 1 Delusional disorder (F22) Referral Organization [facility] Referring Provider First Name Micheline Referring Provider Last Name Sabas [facility]erring Provider [facility] Provider Specialty Psychiatry Referral Priority Routine Medications Medication SIG (Take, Route, Frequency, Duration) Notes Start Date End Date Status Mirtazapine 7.5 MG 1 tablet Orally every evening ; Duration: 30 days 07/20/2024ctiverisperiDONE 0.5 MG1 tablet Orally twice daily; Duration: 30 days 07/20/2024ctiveCefdinir 300 MGone capsule Orally BID; Duration: 7 days 08/06/2024ctiveAtorvastatin Calcium 20 MG1 tablet Oral Once a day; Duration: 90 daysNot-TakingAlbuterol Sulfate HFA 108 (90 Base) MCG/ACT2 puffs Inhalation every 6 hours as qomuvl6507/20/2024ctive Social History Tobacco Use: Social History Observation Description Date Details (start date - stop date) Never Smoker NA - NA Tobacco Control (Standard) Question Answer Notes Tobacco use: Nonsmoker AUDIT-C (Standard) Question Answer Notes Did you have a drink containing alcohol in the p ast year? No Lqqcxd1ZqgclwfbryepojAqrptsvp Problems Problem Type SNOMED Code ICD Code Onset Dates Problem Status W/U Status Risk Notes Problem Mild intermittent asthma (456038 007) Mild intermittent asthma with status asthmaticus (J45.22) ActiveconfirmedProblemHistopathology finding (827345884)Unspecified abnormal finding in specimens from other organs, systems and tissues (R89.9)Active confirmedProblemChest pain (59204147)Chest pain (R07.9)ActiveconfirmedProblem Dyslipidemia (838403487)Dyslipidemia (E78.5)ActiveconfirmedProblemAnxiety (45327944)Anxiety (F41.9)ActiveconfirmedProblemAnemia (276655657)Anemia (D64.9) ActiveconfirmedProblemDementia (46245305)Dementia (F03.90)ActiveconfirmedProblem Delusional disorder (67643649)Delusional disorder (F22)ActiveconfirmedProblem Essential hypertension (34903489)Essential Hypertension (I10)Activeconfirmed Vital Signs Temperature 100.4 degrees Fahrenheit 08/04/2024 Blood pressure mm Hg08/04/20248568Jcnowv22 in08/04/2024lood pressure uawqxsdd740 mm Hg08/04/20245729Alokpx675 lbs110/04/2023BMI27.34 kg/m208/04/2024 Encounters Encounter Location Date Provider Diagnosis [facility] [address] [place] [address] 08/04/2024 Michelinekimberly Obregon Cough R05.9 ; Fever R50.9 and Delusional disorder F22 [facility] [address] [place] [address] 08/04/2024 Michelinekimberly Obregon Delusional disorder F22 [facility] [address] [place] [address] 08/06/2024 Micheline Obregon [place] [address] [place] [place] [address] 08/10/2024michelaerwin ObregonUnspecified abnormal finding in specimens from other organs, systems and tissues R89.9[facility] [place] [place] [address]/michelaerwin VikyjeffryBuamarilisK[place] [address] [facility] [address]/4Plucio Salmonmer Assessments Encounter Date Diagnosis (ICD Code) Assessment Notes Treatment Notes Treatment Clinical Notes Section Notes 08/04/2024 Cough (ICD-10 - R05.9) 08/04/2024Fever (ICD-10 - R50.9) continue monitor sx, temp if geting worse: mental status deteriorates again, ER eval , would need imaging, brother voices understanding 4Delusional disorder (ICD-10 - F22)08/10/2024Unspecified abnormal finding in specimens from other organs, systems and tissues (ICD-10 - R89.9) 4Delusional disorder (ICD-10 - F22) Plan Of Treatment Pending Test Test Name Order Date CMP (COMPLETE METABOLIC PANEL) 4 CMP (COMPLETE METABOLIC PANEL) 4 CMP (COMPLETE METABOLIC PANEL) 4 UA (URINALYSIS, COMPLETE) 08/04/2024 HEMOGLOBIN A1C (GLYCO) 07/20/2024 HEMOGLOBIN A1C (GLYCO) 07/20/2024 INSULIN, TOTAL 07/20/2024 INSULIN, TOTAL 07/20/2024 LIPID PANEL (CHOL/TRIG/HDL/LDL) 07/20/20 24 LIPID PANEL (CHOL/TRIG/HDL/LDL) 07/20/20 24 CBC WITH DIFF 07/20/2024 CBC WITH DIFF 07/20/2024 CBC WITH DIFF 08/04/2024 Urine Culture 08/04/2024 UA (Urinalysis, Dipstix only - w/o micro ) 08/04/2024 COVID-19, Flu A+B IH 08/04/2024 CBC AUTO DIFF 08/10/2024 PROF 14(COMP METB) 08/10/2024 THYROID PANEL (T4/TSH/FREE T3) 4 THYROID PANEL (T4/TSH/FREE T3) 4 Insurance Providers Payer Name Payer Address Payer Phone Subscriber Number Group Number Insured Name Patient Relationship to Insured Coverage Start Date Coverage End Date [employer] [address] [place] [id number] Charlotte Campoself - patient is the insured Medical (General) History Medical History History ICD Code Mild intermittent asthma with status ast hmaticus J45.22 Dyslipidemia E78.5 Dementia in Alzheimer's disease 331.0 Dementia F03.90 Delusional disorder F22 Essential Hypertension I10 Brief psychotic disorder F23 Anemia D64.9 Anxiety F41.9 Depression F32.A Surgical History Surgery Date(Month/Year) Knee Replacement- Bilateral Hiatal Hernia repairCarpal TunnelHospitalization History Reason Date(Month/Year) Sojourans- Psych surgeries
--- OUTSIDE RECORDS SUMMARY | 2025-07-28 12:25 | XMS_ITS | Clinical Summary ---
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 Name Role Phone Shaikh ELVIRA Fisher Unavailable [phone] Duyen Urbano OUTREACH REPRESENTATIVE Unavailable Navneet Vanegas MD Primary Care Provider Evelyn Tariq OUTREACH REPRESENTATIVE Unavailable [phone] Allergies Active AllergyReactionsCriticalityNoted BenxTnvcjbzcDbjhehvoEnuiyxkCzw05/12/2023 Other Reaction(s): Hallucinations Oxycodone-FxbpnaelspmnzQeylneeNao84/10/2014Wound Dressing IvmimneoHsb12/30/2014 Other Reaction(s): Other (See Comments) redness Medications MedicationSigDispense QuantityRefillsLast FilledStart DateEnd DateStatus atorvastatin (Lipitor) 20 MG tablet Indications:DyslipidemiaTake 1 tablet (20 mg) by mouth Daily 90 tablet 5Active losartan (Cozaar) 50 MG tablet Indications:HypertensionTake 1 tablet (50 mg) by mouth Daily 90 tablet 5Active mirtazapine (Remeron) 7.5 MG tablet Indications: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 (HCC)Take 1 tablet (7.5 mg) by mouth at bedtime 90 tablet 5Active risperiDONE (RisperDAL) 0.5 MG tablet Indications:Behavioral Disorders associated with DementiaTake 1 tablet (0.5 mg) by mouth in the morning and 1 tablet (0.5 mg) before bedtime. 180 tablet 5Active albuterol HFA 90 mcg/act inhaler Indications:Mild intermittent asthma with status asthmaticus (HCC)Inhale 2 puffs every 6 (six) hours if needed for wheezing 18 g 5Active Active Problems ProblemNoted DateDiagnosed DateEncounter for subsequent annual wellness visit (AWV) in Medicare vnpzesu5002/24/2025 Assessment & Plan (02/24/2025 6:32 AM EDT): Reviewed Ht/Wt/BMI Recommend eye exam yearly Recommend dental exams twice a year Balance work/leisure activities Exercises is recommended most days of the week (appropriate as chronic conditions allow) Follow up yearly and prn Colon cancer screening opdesyhd06/11/2025Delusional huxxgvwp91/11/2025COVID-19 10/12/2024 Assessment & Plan (10/12/2024 10:32 AM EST): Was seen in ED on 10/02 for COVID and ear infection. Was tx with Augmentin for otitis media and tylenol for fever/pain. Reports mild cough intermittently still persists. States most symptoms have since subsided. No complaints or concerns at this time. Denies shortness of breath/chest pain/ear pain/dizziness/N/V/D. Brief reactive apkpkawss19/15/2816Yvswiglocutxtu45/15/2024 Assessment & Plan (02/24/2025 6:26 AM EDT): On statin therapy Check labs yearly and prn dose changes 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 09/26/2023 [...] her memory is fine. Screening mammogram, encounter for08/12/2023 Assessment & Plan (08/12/2023 10:12 AM EST): Last Mammogram 12/05 - normal. Repeat ordered Vpsbggxzh62/15/6400D04 sumwonixkc60/26/2023 Assessment & Plan (02/24/2025 6:25 AM EDT): Check labs Acute pain of left kjofelny39/12/2023rthritis of left acromioclavicular joint 06/27/2023rthritis of right hip06/27/20232534Szdnsufoi00/12/2023Mild intermittent asthma with status stjqsbxqoep28/12/2023 Assessment & Plan (01/06/2024 11:05 AM EDT): [...] on Symbicort. No recent asthma exacerbations Cardiac nrqyhh774954Wltofepiedp34/12/2023 Assessment & Plan (02/24/2025 6:25 AM EDT): Check labs , does not currently take any supplement Assessment & Plan (09/26/2023 2:40 AM EST): Was previously on Cytomel. Off of any thyroid medication. TSH - normal 06/08 No need for thyroid replacement Meniere's disease of left ear06/27/2023MCI (mild cognitive impairment) with memory loss06/27/2023 Assessment & Plan (08/12/2023 10:11 AM EST): Chronic ongoing. Reluctant, and hesitant for any evaluation. Normal B12, TSH. Refer to Neurology Fqennhkugo29/12/2023 Assessment & Plan (11/24/2024 11:19 AM EDT): Difficult to assess, appears to be stable on current meds Current meds: mirtazapine and risperidone Xttuviomkthh32/30/2014 Assessment & Plan (02/24/2025 6:24 AM EDT): [...] controlled. On Losartan. C/w same Resolved Problems ProblemNoted DateDiagnosed DateResolved RxdqWylcjtzu63 Tkyzzadxtzkh63 Assessment & Plan (11/24/2024 11:19 AM EDT): [...] unreasonable approach. Monitor periodically as clinically indicated. Kjswwasuwvb30 Encounters DateTypeDepartmentCare ClfwIxeinmkjupq61/04/2025 11:20 AM EDTProcedure Visit [facility] [address] [place] [address] Dave Ambrocio DPM Acquired deformity of left toe (Primary Dx); Pain due to onychomycosis of toenails of both feet; Venous insufficiency; Acquired deformity of right toe05/20/2025amboo flowsheet [facility] [address] [place] [address] Dave Ambrocio DPM 05/20/20255545Sacvrz19/25/2025Patient Outreach [facility] [address] [place] [address] Sherri Mendez LSW from Last 3 Months Immunizations ImmunizationAdministration DatesNext DueInfluenza, High Dose Seasonal, Preservative Free07/11/2024Influenza, High-dose Seasonal, Quadrivalent, Preservative Free07/13/2023Influenza, injectable, wjklkimsstyh36/30/2014 Pneumococcal Conjugate PCV Pneumococcal Polysaccharide PPSV23 07/16/20087037EYWO-XHJ-7 (COVID-19) vaccine, mRNA, spike protein, LNP, PF, kristi- sucrose, 30 mcg/0.3 mL07/11/2024Tdap12/02/2024Zoster, Ujrjrvmzvkl48/19/2025 Zoster, live09/02/2015 Family History Medical HistoryRelationNameCommentsHeart diseaseFatherHypertensionFatherHeart diseaseMotherHypertensionMotherOtherMotherMitral Valve DisorderStrokeMother RelationNameStatusCommentsFatherDeceasedMotherAlive Social History Tobacco UseTypesPacks/DayYears UsedDateSmoking Tobacco: NeverPassive Smoke Exposure: NeverSmokeless Tobacco: Never Tobacco Cessation:Counseling Given: Yes Alcohol UseStandard Drinks/WeekCommentsNever0 (1 standard drink = 0.6 oz pure alcohol)Humiliation, Afraid, Rape, and Kick questionnaireAnswerDate Recorded Within the last year, have you been afraid of your partner or ex-partner?No 08/12/2023Within the last year, have you been humiliated or emotionally abused in other ways by your partner or ex-partner?No08/12/2023Within the last year, have you been kicked, hit, slapped, or otherwise physically hurt by your partner or ex-partner?No08/12/2023Within the last year, have you been raped or forced to have any kind of sexual activity by your partner or ex-partner?No08/12/2023 Social Connection and Isolation PanelAnswerDate RecordedIn a typical week, how many times do you talk on the phone with family, friends, or neighbors?More than three times a week08/12/2023How often do you get together with friends or relatives?More than three times a week08/12/2023How often do you attend congregation or methodist services?1 to 4 times per year08/12/2023o you belong to any clubs or organizations such as congregation groups, unions, fraternal or athletic groups, or school groups?No08/12/2023How often do you attend meetings of the clubs or organizations you belong to?Never08/12/2023re you , , , , never , or living with a partner?Nyhpnni6308/12/2023UDIT-C AnswerDate RecordedQ1: How often do you have a drink containing alcohol?Never 08/12/2023Q2: How many drinks containing alcohol do you have on a typical day when you are drinking?Patient does not drink08/12/2023Q3: How often do you have six or more drinks on one occasion?Never08/12/2023Overall Financial Resource Strain (CARDIA)AnswerDate RecordedHow hard is it for you to pay for the very basics like food, housing, medical care, and heating?Not very hard08/12/2023 PHQ-2AnswerDate RecordedPatient Health Questionnaire-2 Hcyut851Finencompass [facility] [place] - Occupational Stress QuestionnaireAnswerDate RecordedDo you feel stress - tense, restless, nervous, or anxious, or unable to sleep at night because yourmind is troubled all the time - these days?Very much 08/12/2023Exercise Vital SignAnswerDate RecordedOn average, how many days per week do you engage in moderate to strenuous exercise (like a brisk walk)?0 days 08/12/2023On average, how many minutes do you engage in exercise at this level?0 min08/12/2023Hunger Vital SignAnswerDate RecordedWithin the past 12 months, you worried that your food would run out before you got the money to buymore.Never true08/12/2023Within the past 12 months, the food you bought just didn't last and you didn't have money to get more.Never true08/12/2023RAPARE - TransportationAnswerDate RecordedIn the past 12 months, has lack of transportation kept you from medical appointments or from getting medications? Yes08/12/2023In the past 12 months, has lack of transportation kept you from meetings, work, or from getting things needed for daily living?No08/12/2023 Housing Stability Vital SignAnswerDate RecordedIn the last 12 months, was there a time when you were not able to pay the mortgage or rent on time?No08/12/2023 Number of Places Lived in the Last YearNot on file08/12/2023In the last 12 months, was there a time when you did not have a steady place to sleep or slept in [facility] (including now)?No08/12/2023CommentsUnknownSex and Gender InformationValueDate RecordedSex Assigned at BirthNot on fileLegal SexFemale 11/28/2022 7:12 PM EDTGender IdentityNot on fileSexual OrientationNot on file Last Filed Vital Signs Vital SignReadingTime TakenCommentsBlood Kacxuyhx308/8806 9:39 AM EDT Drecy378902/24/2025 9:39 AM NKKAltkxjkqanr72 ??C (98.6 ??F)02/24/2025 9:39 AM EDT Respiratory Vfbk6944 11:16 AM EDTOxygen Duhbhnlrsb39%02/24/2025 9:39 AM EDTInhaled Oxygen Concentration--Ikgosd03.9 kg (163 lb)05/20/2025 11:16 AM EDT Tutjpd888.9 cm (5' 1 )05/20/2025 11:16 AM EDTBody Mass Index30.809 11:16 AM EDT Plan of Treatment DateTypeDepartmentCare Team (Latest Contact Info)Sqylrdcdhjh94/13/2025 11:30 AM ESTProcedure Visit [facility] [address] [facility] [address] [place] [address] Dave Ambrocio, ENID [address] [facility] [address] [place] [address] Health MaintenanceDue DateLast DoneCommentsCT Ssggavabfvhs1950Colonoscopy 1950FIT1950FOBT01/08/19527580Obregszolsgtn1952FIT-DNA09/16/2023 09/16/2020OVID-19 Vaccine ( season), 07/13/2023, 09/14/2021, Additional history existsInfluenza Vaccine (#1), 07/13/2023, 09/14/2014Colorectal Cancer Aakkasqvq11/11/2026Postponed from 1950 (Patient Refused)Medicare Annual Wellness (AWV), 01/06/2024, 01/06/20240825Bscqpbslj96, 08/27/2023, 08/27/2023, Additional history existsPneumococcal Vaccine: 65+ AokdcUklgjlblj50/19/2025, 07/16/2008 Procedures Procedure NamePriorityDate/TimeAssociated DiagnosisCommentsBI MAMMOGRAM SCREENING HLYNDSXQE11/24/2025 1:45 PM EDT from Last 3 Months or Most Recently Relevant to Health Maintenance Results * Bilateral screening mammogram (03/09/2025 1:45 PM EDT)Anatomical Region LateralityModalityBreastBilateralMammographySpecimen (Source)Anatomical Location / LateralityCollection Method / VolumeCollection TimeReceived Time 03/09/2025 1:45 PM EDT Narrative 03/09/2025 1:46 PM EDT [facility] ?[address] ? [place] [address] ? Mammography Report ? Signed ? Patient: REMINGTOND,KEVON A ?MR#: [id number] ?? : 1950 ?Acct:[id number] ?? Age/Sex: 75 / F ?ADM Date: 03/09/25 ?? Loc: MAMMO ? Attending Dr: Evelyn Tariq OUTREACH REPRESENTATIVE ? Ordering Physician: Evelyn Tariq NP ?Results: ? Date of Service: 03/09/25 ?Follow Up: ? Procedure(s): MM screening mammo BI ?? Accession Number(s): [id number] ? cc: Evelyn Tariq NP ? Patient Name: ? KEVON MESNARD ? MR#: [id number] ? : 1950 ? Exam Date: 03/09/2025 ?? Ordering Doctor: NEIDA TARIQ CNP ? RADIOLOGY REPORT ? PROCEDURE: ? MM SCREENING MAMMO BI ? COMPARISON: ? MM SCREENING BI, 08/27/2023. ??MG MAMM SCREEN 3D JASON CAD, ?? 11/21/2021. ??MG MAMM LT DIAG FU, 06/28/2017. ??MG MAMM JASON SCRN W CAD DIG, ?? 08/04/2013. ? INDICATIONS: ? Screening ? Calculator Name ? NCI Breast Cancer Risk Assessment Tool ?? 5 Year Breast Cancer Risk ? 1.40% ?? Lifetime Breast Cancer Risk ? 3.50% ?? Personal Breast Cancer ?No ?? Personal Ovarian Cancer ? No ?? Treatments ? None ?? Family Cancers ? None ? LOCATION: ? [facility] ? BREAST COMPOSITION: ? The breasts are heterogeneously dense,which may ?? obscure small masses. ? FINDINGS: ? RIGHT BREAST: ??No significant suspicious finding. ??Benign-appearing ?? calcifications are present. ??Benign-appearing lymph nodes are present appeared ? LEFT BREAST: ??No significant suspicious finding. ??Benign-appearing ?? calcifications are redemonstrated. ??There is a biopsy clip in the left breast. ?? Benign-appearing lymph nodes are present. ? DIAGNOSTIC CATEGORY 2--BENIGN FINDING: ? RECOMMENDATIONS: ? ROUTINE MAMMOGRAM AND CLINICAL EVALUATION IN 12 MONTHS. ? PLEASE NOTE: ??A NORMAL MAMMOGRAM DOES NOT EXCLUDE THE POSSIBILITY OF BREAST ?? CANCER. ??A CLINICALLY SUSPICIOUS PALPABLE LUMP SHOULD BE BIOPSIED. ? Dictated by: Rajan Chavez MD on 03/09/2025 at 13:33 ? Approved by: Rajan Chavez MD on 03/09/2025 at 13:45 ? Dictated By: ?Rajan Chavez M.D. ? Signed By: ?03/09/25 1346 ? DD/ 1345 ? TD/TT: ? Ice House Supervisor: Procedure Note Radiology, Radiologist, MD - 03/09/2025 [place] [address] Mammography Report Signed Patient: KEVON CAMPOS AMR#: [id number] : 2Acct:[id number] Age/Sex: 75 / FADM Date: 03/09/25 Loc: MAMMO Attending Dr: Evelyn Tariq OUTREACH REPRESENTATIVE Ordering Physician: Evelyn Tariqults: Date of Service: 03/09/25Follow Up: Procedure(s): MM screening mammo BI Accession Number(s): [id number] cc: Evelyn Tariq NP Patient Name: KEVON CAMPOS MR#: [id number] : 1950 Exam Date: 03/09/2025 Ordering Doctor: [...] Treatments None Family Cancers None LOCATION: [facility] BREAST COMPOSITION: The breasts are heterogeneously dense,which may obscure small masses. FINDINGS: RIGHT BREAST: No significant suspicious finding. Benign-appearing calcifications are present. Benign-appearing lymph nodes are presentappeared LEFT BREAST: No significant suspicious finding. Benign-appearing calcifications are redemonstrated. There is a biopsy clip in the leftbreast. Benign-appearing lymph nodes are present. DIAGNOSTIC CATEGORY 2--BENIGN FINDING: RECOMMENDATIONS: ROUTINE MAMMOGRAM AND CLINICAL EVALUATION IN 12 MONTHS. PLEASE NOTE: A NORMAL MAMMOGRAM DOES NOT EXCLUDE THE POSSIBILITY OFBREAST CANCER. A CLINICALLY SUSPICIOUS PALPABLE LUMP SHOULD BE BIOPSIED. Dictated by: Rajan Chavez MD on 03/09/2025 at 13:33 Approved by: Rajan Chavez MD on 03/09/2025 at 13:45 Dictated By: Rajan Chavez M.D. Signed By:03/09/25 1346 DD/ 1345 TD/TT: Ice House Supervisor: Authorizing ProviderResult TypeResult StatusLisa Chadnni NPIMG BI PROCEDURES Final Result from Last 3 Months or Most Recently Relevant to Health Maintenance Insurance Care Teams Team MemberRelationshipSpecialtyStart DateEnd Date Shaikh Fisher MD [address] [place] [address] PCP - Devoted09/16/23 Navneet Vanegas MD [address] [place] [phone] PCP - GeneralFamily Medicine02/23/25 Duyen Urbano NP [address] [place] [address] Nurse PractitionerFamily Medicine05/26/24 Evelyn Tariq NP [address] [place] [address] Nurse PractitionerMedical [facility] Medicine02/23/25
--- OUTSIDE RECORDS SUMMARY | 2025-07-28 12:25 | XMS_ITS | Encounter Summary ---
Author Organization [facility] Address [address] [place] [address] Care Team Providers Care Cash Posting Representative Name Role Phone Shaikh ELVIRA Fisher Primary Care Provider Shaikh ELVIRA Fisher Unavailable [phone] Shaikh ELVIRA Fisher Primary Care Provider Navneet Vanegas MD Primary Care Provider Duyen Urbano CLIENT SERVICE SUPERVISOR Unavailable Mc Andrade MD Primary Care Provider [phone] Navneet Vanegas MD Primary Care Provider Evelyn Tariq CLIENT SERVICE SUPERVISOR Unavailable [phone] Encounter Details DateTypeDepartmentCare Team (Latest Contact Info)Hsbdzypncca82/12/2023Clinisync Result Encounter [facility] Unsolicited Shaikh Fisher MD [address] [place] [address] Social History Tobacco UseTypesPacks/DayYears UsedDateSmoking Tobacco: NeverSmokeless Tobacco: NeverAlcohol UseStandard Drinks/WeekCommentsNever0 (1 standard drink = 0.6 oz pure alcohol)Humiliation, Afraid, Rape, and Kick questionnaireAnswerDate RecordedWithin the last year, have you been afraid of your partner or ex-partner?No08/12/2023Within the last year, have you been humiliated or emotionally abused in other ways by your partner or ex-partner?No08/12/2023 Within the last year, have you been kicked, hit, slapped, or otherwise physically hurt by your partner or ex-partner?No08/12/2023Within the last year, have you been raped or forced to have any kind of sexual activity by your part ner or ex-partner?No08/12/2023Social Connection and Isolation PanelAnswerDate RecordedIn a typical week, how many times do you talk on the phone with family, friends, or neighbors?More than three times a week08/12/2023How often do you get together with friends or relatives?More than three times a week08/12/2023How often do you attend muslim or roman catholic services?1 to 4 times per year08/12/2023 Do you belong to any clubs or organizations such as muslim groups, unions, fraternal or athletic groups, or school groups?No08/12/2023How often do you attend meetings of the clubs or organizations you belong to?Never08/12/2023re you , , , , never , or living with a partner?Klmcuyx4508/12/2023UDIT-CAnswerDate RecordedQ1: How often do you have a drink containing alcohol?Never08/12/2023Q2: How many drinks containing alcohol do you have on a typical day when you are drinking?Patient does not drink 08/12/2023Q3: How often do you have six or more drinks on one occasion?Never 08/12/2023Overall Financial Resource Strain (CARDIA)AnswerDate RecordedHow hard is it for you to pay for the very basics like food, housing, medical care, and heating?Not very hard08/12/2023HQ-2AnswerDate RecordedPatient Health Questionnaire-2 [id number] [employer] [facility] - Occupational Stress QuestionnaireAnswerDate RecordedDo you feel stress - tense, restless, nervous, or anxious, or unable to sleep at night because yourmind is troubled all the time - these days?Very much08/12/2023Exercise Vital SignAnswer Date RecordedOn average, how many days per week do you engage in moderate to strenuous exercise (like a brisk walk)?0 days08/12/2023On average, how many minutes do you engage in exercise at this level?0 min08/12/2023Hunger Vital Sign AnswerDate RecordedWithin the past 12 months, you worried that your food would run out before you got the money to buymore.Never true08/12/2023Within the past 12 months, the food you bought just didn't last and you didn't have money to get more.Never true08/12/2023RAPARE - TransportationAnswerDate RecordedIn the past 12 months, has lack of transportation kept you from medical appointments or from getting medications?Yes08/12/2023In the past 12 months, has lack of transportation kept you from meetings, work, or from getting things needed for daily living?No08/12/2023Housing Stability Vital SignAnswerDate RecordedIn the last 12 months, was there a time when you were not able to pay the mortgage or rent on time?No08/12/2023Number of Places Lived in the Last YearNot on file 08/12/2023In the last 12 months, was there a time when you did not have a steady place to sleep or slept in [facility] (including now)?No08/12/2023Comments UnknownSex and Gender InformationValueDate RecordedSex Assigned at BirthNot on fileLegal CfzPjcffp11/15/2023 7:12 PM EDTGender IdentityNot on fileSexual OrientationNot on filedocumented as of this encounter Functional Status * Over the past 2 weeks, how often have you been bothered by any of the following problems?QuestionAnswerDate of AssessmentAuthorLittle interest or pleasure in doing thingsNot at all02/24/2025 9:45 AM Yanely Henriquez MA Feeling down, depressed, or hopelessNot at all02/24/2025 9:45 AM Yanely Henriquez MAPatient Health Questionnaire-2 [id number] 9:45 AM SYDNEYT Yanely Young MA * QuestionAnswerDate of AssessmentAuthorTrouble falling or staying asleep, or sleeping too muchNot at all02/24/2025 9:45 AM Yanely Henriquez MAFeeling tired or having little energyNot at all02/24/2025 9:45 AM Yanely Henriquez, SONAoor appetite or overeatingNot at all02/24/2025 9:45 AM EDT Yanely Young, REJIeeling bad about yourself - or that you are a failure or have let yourself or your family downNot at all02/24/2025 9:45 AM SYDNEYT Yanely Young MATrouble concentrating on things, such as reading the newspaper or watching televisionNot at all02/24/2025 9:45 AM Yanely Henriquez, MAMoving or speaking so slowly that other people could have noticed? Or the opposite - being so fidgety or restless that you have been moving around a lot more than usual.Not at all02/24/2025 9:45 AM Yanely Henriquez, MAThoughts that you would be better off or hurting yourself in some wayNot at all02/24/2025 9:45 AM Yanely Henriquez MAPatient Health Questionnaire-9 [id number] 9:45 AM Yanely Henriquez MA documented as of this encounter Plan of Treatment DateTypeDepartmentCare Team (Latest Contact Info)Oywrkypwehk27/13/2025 11:30 AM ESTProcedure Visit [facility] [address] [facility] [address] [place] [address] Dave Ambrocio DPM [address] [facility] [address] [place] [address] documented as of this encounter Procedures Procedure NamePriorityDate/TimeAssociated DiagnosisCommentsMM TOMOSYNTHESIS SCREENING BI08/27/2023 10:12 AM EST documented in this encounter Results * MM TOMOSYNTHESIS SCREENING BI (08/27/2023 10:12 AM EST)Anatomical Region LateralityModalityOtherSpecimen (Source)Anatomical Location / Laterality Collection Method / VolumeCollection TimeReceived Time08/27/2023 10:12 AM EST Narrative 08/27/2023 10:13 AM EST [facility] ?[address] ? [place] [address] ? Mammography Report ? Signed ? Patient: KEVON CAMPOS A ?MR#: [id number] ?? : 1950 ?Acct:[id number] ?? Age/Sex: 73 / F ?ADM Date: 08/27/23 ?? Loc: MAMMO ? Attending Dr: Shaikh Natalia Sheffield ? Ordering Physician: Shaikh Nettie Fisher ?Results: ? Date of Service: 08/27/23 ?Follow Up: ? Procedure(s): MM tomosynthesis screening BI ?? Accession Number(s): [id number] ? cc: Shaikh Nettie Fisher ? Patient Name: ? KEVON MACEDOJuan ? MR#: [id number] ? : 1950 ? Exam Date: 08/27/2023 ?? Ordering Doctor: Shaikh Adela Fisher . ? RADIOLOGY REPORT ? PROCEDURE: ? MM TOMOSYNTHESIS SCREENING BI ? COMPARISON: ? [facility] M[facility]M SCREEN 3D JASON CAD, 11/21/2021. ??[facility] M[facility]M LT DIAG FU, ?? 06/28/2017. ? INDICATIONS: ? Screening ? Calculator Name ? NCI Breast Cancer Risk Assessment Tool ?? 5 Year Breast Cancer Risk ? 1.40% ?? Lifetime Breast Cancer Risk ? 3.90% ?? Personal Breast Cancer ?No ?? Personal Ovarian Cancer ? No ?? Treatments ? None ?? Family Cancers ? None ? LOCATION: ? [facility] ? BREAST COMPOSITION: ? Heterogeneously dense,which may obscure small masses. ? FINDINGS: ? DIAGNOSTIC CATEGORY 2--BENIGN FINDING. NO CHANGE FROM COMPARISON. ? Stable bilateral nodular parenchymal pattern most significant in right breast. ?? Scattered benign-appearing calcifications are present. ??Scattered ?? benign-appearing lymph nodes are present. ? RIGHT BREAST: ??No significant suspicious finding. ? LEFT BREAST: ??No significant suspicious finding. ??Geographically distributed ?? calcifications in the upper half breast, grossly stable but limiting ?? diagnostic sensitivity ? RECOMMENDATIONS: ? ROUTINE MAMMOGRAM AND CLINICAL EVALUATION IN 12 MONTHS. ? PLEASE NOTE: ??A NORMAL MAMMOGRAM DOES NOT EXCLUDE THE POSSIBILITY OF BREAST ?? CANCER. ??A CLINICALLY SUSPICIOUS PALPABLE LUMP SHOULD BE BIOPSIED. ? Dictated by: Aleksandr Chavira MD on 08/27/2023 at 10:10 ? Approved by: Aleksandr Chavira MD on 08/27/2023 at 10:11 ? Dictated By: ?Aleksandr Chavira M.D. ? Signed By: ?08/27/23 1013 ? DD/ 1012 ? TD/TT: ? Parts Counterperson: Procedure Note Radiology, Radiologist, MD - 08/27/2023 [place] [address] Mammography Report Signed Patient: KEVON CAMPOS [facility]#: [id number] : 2Acct:[id number] Age/Sex: 73 / FADM Date: 08/27/23 Loc: MAMMO Attending Dr: Shaikh Natalia Sheffield Ordering Physician: Shaikh Nettie FisherResults: Date of Service: 08/27/23Follow Up: Procedure(s): MM tomosynthesis screening BI Accession Number(s): [id number] cc: Shaikh Nettie Fisher Patient Name: KEVON CAMPOS MR#: [id number] : 1950 Exam Date: 08/27/2023 Ordering Doctor: [...] Treatments None Family Cancers None LOCATION: [facility] BREAST COMPOSITION: Heterogeneously dense,which may obscure smallmasses. [...] M.D. Signed By:08/27/23 1013 DD/ 1012 TD/TT: Parts Counterperson: Authorizing ProviderResult TypeResult StatusShaikh Natalia [facility] Final Result documented in this encounter Visit Diagnoses Not on filedocumented in this encounter Care Teams Team MemberRelationshipSpecialtyStart DateEnd Date Shaikh Fisher MD PCP - GeneralInternal Fpkkknnz64/15/234 Shaikh Fisher MD [address] [place] [address] PCP - Devoted09/16/23 Shaikh Fisher MD [address] [place] [address] PCP - GeneralInternal Medicine Navneet Vanegas MD [address] [place] [address] PCP - GeneralFamily Medicine Mc Andrade MD [address] [place] [address] PCP - GeneralFamily Medicine Navneet Vanegas MD [address] [place] [address] PCP - GeneralFamily Medicine02/23/25 Duyen Urbano NP [address] [place] [id number] Nurse PractitionerFamily Medicine05/26/24 Evelyn Tariq NP [address] [place] [phone] Nurse PractitionerFamily Medicine02/23/25documented as of this encounter
--- OUTSIDE RECORDS SUMMARY | 2025-07-28 12:26 | XMS_ITS | CCD ---
Author Organization [facility] Inform ion [facility] Care Team Providers Care Soldering Inspector Name Role Phone DR ALEX SIGALA Consulting Unavailable FAWWAD, SANDERS H Attending Unavailable FAWWAD, SANDERS H Primary Care Unavailable FAWWAD, SANDERS H Admitting Unavailable FAWWAD, SANDERS H Consulting Unavailable FAWWAD, SANDERS H Attending Unavailable DR CARLOS CHAVIRA V Consulting Unavailable FAWWAD, SANDERS H Primary Care Unavailable FAWWAD, SANDERS H Admitting Unavailable FAWWAD, SANDERS H Consulting Unavailable AICHHOLZ, AIRCRAFT ENGINE DISMANTLER EVELYN Consulting Unavailable AICHHOLZ, AIRCRAFT ENGINE DISMANTLER EVELYN Admitting Unavailable AICHHOLZ, AIRCRAFT ENGINE DISMANTLER EVELYN Attending Unavailable FAWWAD, SANDERS H Primary Care Unavailable DR ALEX SIGALA Consulting Unavailable FAWWAD, SANDERS H Attending Unavailable [...] FAWWAD, SANDERS H Primary Care Unavailable DR ALEX SIGALA Consulting Unavailable AICHHOLZ, AIRCRAFT ENGINE DISMANTLER EVELYN Consulting Unavailable AICHHOLZ, AIRCRAFT ENGINE DISMANTLER EVELYN Admitting Unavailable AICHHOLZ, AIRCRAFT ENGINE DISMANTLER EVELYN Attending Unavailable FAWWAD, SANDERS H Primary Care Unavailable DR ALEX SIGALA Consulting Unavailable MD Natalia [facility] Primary Care Provider DO Jorge Solorzano Attending Provider LONI BRITT Attending Unavailable PUMA ROCHA Referring Unavailable OZ, [facility] Primary Care Unavailable LONI BRITT Attending Unavailable PUMA ROCHA Referring Unavailable [facility] Primary Care Unavailable DOREEN, AISLINN S Referring Unavailable HOY, QI M Primary Care Unavailable DOREEN, AISLINN S Referring Unavailable HOY, QI M Primary Care Unavailable DOREEN, AISLINN S Referring Unavailable YANCI, QI M Primary Care Unavailable JORGE SOLORZANO Attending Unavailable JORGE SOLORZANO Referring Unavailable [facility] Primary Care Unavailable Shaik Fisher MDh Unavailable Navneet Vanegas MD Primary Care Provider Yolie PROSTHETICS TECHNICIAN, Dominique Unavailable Qi Andrade MD Primary Care Provider Yolie PROSTHETICS TECHNICIAN, Dominique Unavailable [phone] Qi Andrade MD Primary Care Provider Navneet Vanegas MD Primary Care Provider [phone] Chandni PROSTHETICS TECHNICIAN, Evelyn Unavailable Natalia FELIX, [facility] Primary Care Provider Charley Lam APRN Attending Provider Shaikh Fisher Primary Care Unavailable Charley Lam Attending Unavailable Charley Lam Admitting Unavailable Navneet Vanegas MD Primary Care Provider Chandni PROSTHETICS TECHNICIAN, Evelyn Unavailable DOMINIQUE URBANO Attending Unavailabl e EVELYN TARIQ Attending Unavailable DAVE VEE Attending Unavailable EVELYN TARIQ Attending Unavailable DAVE VEE Attending Unavailable BROWN, DAVE A Attending Unavailable Chandni FONG-C, Evelyn Seth Primary Care Provider Chandni SALAZARC, Evelyn Seth Attending Provider Emily Mendoza APRN Attending Provider Shaikh Fisher MD Primary Care Provider Natalia FELIX, Unavailable Shaikh Fisher MD Primary Care Provider Navneet Vanegas MD Primary Care Provider Yolie FONG, Dominique Unavailable Qi Andrade MD Primary Care Provider Guilherme FELIX, Navneet Primary Care Provider Chandni FONG, Evelyn Unavailable Allergies Allergy ClassificationReported Allergen(s)Allergy TypeDate of OnsetReaction(s) Facility (1 source)Acetaminophen / oxyCODONEDrug Vmohyly07-75-4486SbrSt. [facility] Repository (3 sources)MorphineDrug Negdank17-48-0222QjfwavrSbpMarietta Memorial Hospital Repository (20 sources)Acetaminophen / oxyCODONE; Translations: [OXYCODONE-ACETAMINOPHEN] Drug Aliklhz23-35-3514XjemiwqSmoZkavxf Repository (3 sources)Adhesive agent; Translations: [ADHESIVE]Propensity to adverse reactions to drug (disorder)67-91-9803Pkzmlwu ReactionProMedica Repository (20 sources)MorphineDrug Rhmhviu91-21-5382XtoejjwNETT Healthcare Work Phone: (20 sources)Wound Dressing AdhesiveDrug Mdzfuftdcec89-69-6720TXBQ Healthcare (2 sources)AcetaminophenDrug Qqeawzx54-34-8731AvtydauDrvnziguzKnox Community Hospital (2 sources)oxyCODONEDrug Uxpjzdj21-99-5079RtfqgowPaetjcromKnox Community Hospital (1 source)adhessiveAllergy to okbqbgnoz42-60-3062MtiktjeChillicothe Hospital Medications Current Medications MedicationDrug Class(es)DatesSig (Normalized)Sig (Original)[id number] 200 actuat albuterol 0.09 mg/actuat metered dose inhaler (20 sources)beta2-Adrenergic AgonistStart: 08-63-1301Vhldwdeoc Sulfate 90 mcg/actuation HFA aerosol inhaler Active INHALATION May 15, 2025 12:00am C omplies with drug therapyStart: 01-05-2025 End: 38-11-9020mmtp 2 puff(s) by inhalation every six hours for wheezing albuterol HFA 90 mcg/act inhaler Indications: Mild intermittent asthma with status asthmaticus (HCC) Inhale 2 puffs every 6 (six) hours if needed for wheezing 18 g 03/24/2025 ActiveStart: 02-12-2024 End: 68-24-6424rbtx 2 puff(s) by mouth every six hours as neededalbuterol HFA 90 mcg/act inhaler Indications: Mild intermittent asthma with status asthmaticus (CMS/HCC) INHALE 2 PUFFS BY MOUTH EVERY 6 HOURS NEEDED FOR SHORTNESS OF BREATH 9 g 02/12/2024 01/04/2025 Discontinued (Reorder)amoxicillin 875 mg / clavulanate 125 mg oral tablet (4 sources)Penicillin-class AntibacterialStart: 51-36-3976yhzg 1 tablet by mouth twice dailyAmoxicillin-Pot Clavulanate 875-125 mg tablet Active 1 TAB PO Twice daily 05 07June 29, 2025 12:00am Complies with drug therapytake 1 tablet by mouth in the morningamoxicillin-clavulanate (Augmentin) 875-125 MG tablet Take 875 mg by mouth in the morning and 875 mg before bedtime. Active atorvastatin 20 mg oral tablet (20 sources)HMG-CoA Reductase InhibitorStart: 04-14-2024 End: 26-13-5980Ewqdrfdaoumu 20 mg tablet Active MG PO May 15, 2025 12:00am Complies with drug therapylosartan potassium 50 mg oral tablet (20 sources)Angiotensin 2 Receptor BlockerStart: 04-14-2024 End: 13-33-8739Wsvboeuf 50 mg tablet Active MG PO May 15, 2025 12:00am Complies with drug therapymirtazapine 7.5 mg oral tablet (20 sources)Start: 09-02-2024 End: 91-26-9675Alxqlcdvpkj 7.5 mg tablet Active MG PO May 15, 2025 12:00am Complies with drug therapyQUEtiapine 25 mg oral tablet (4 sources)Atypical AntipsychoticStart: 04-14-2024 End: 64-19-1864plbx 1 tablet by mouth at bedtimeQUEtiapine (SEROquel) 25 MG tablet Indications: 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) Take 1 tablet (25 mg) by mouth at bedtime 90 tablet 04/14/2024 10/12/2024 Discontinued (Discontinued by another clinician) risperiDONE 0.5 mg oral tablet (20 sources)Atypical AntipsychoticStart: 22-10-3371inmq 1 tablet by mouth twice dailyRisperidone 0.5 mg tablet Active 0.5 MG PO Twice daily May 28, 2025 12:00am Complies with drug therapyStart: 05-15-2025 End: 37-17-1846Upsquwghwii 0.5 mg tablet Discontinued MG PO May 15, 2025 12:00am May 28, 2025 2:16pmStart: 08-05-2024 End: 82-47-8483dfqz 1 tablet by mouth in the morningrisperiDONE (RisperDAL) 0.5 MG tablet Indications: Behavioral Disorders associated with Dementia Take 1 tablet (0.5 mg) by mouth in the morning and 1 tablet (0.5 mg) before bedtime. 180 tablet 1 02/24/2025 05/25/2025 Active Completed/Discontinued Medications MedicationDrug Class(es)DatesSig (Normalized)Sig (Original)Arm Brace misc (4 sources)Start: 05-15-2025 End: 47-57-1146Yke Brace misc Discontinued 0 .Route 1 May 15, 2025 12:00am May 28, 2025 2:16pm As directedStart: 79-16-6839Sck Brace misc Active 0 .Route 1 May 15, 2025 12:00am As directedpredniSONE 20 mg oral tablet (4 sources)Start: 05-15-2025 End: 40-77-1739jroc 2 tablets by mouth once daily, then take 1 tablet by mouth once dailyPrednisone 20 mg tablet Discontinued 20 MG PO .COMPLEX 12 8 May 15, 2025 12:00am May 28, 2025 2:16pm Take 2 tabs po daily x 4 days, then 1 tab po daily x 4 days Problems Active Problems Problem ClassificationProblemDateDocumented DateEpisodic/ChronicAcquired foot deformities (1 source)Acquired deformity of toe of left foot; Translations: [Acquired deformities of toe(s), unspecified,left foot]04-13-2773UavlfwjnZwazotat foot deformities (1 source)Acquired deformity of toe of right foot; Translations: [Acquired deformities of toe(s), unspecified, right foot]73-11-1772DrnbvzohNqpvkw (20 sources)Mild intermittent asthma; Translations: [Mild intermittent asthma with status asthmaticus]Onset: 945526-04-7168PydogbhSulhfcdtbl associated with dizziness or vertigo (20 sources)Meniere's disease, left ear; Translations: [Meniere's disease of left inner ear]Onset: 40-29-4311NssgwryImshfihm, dementia, and amnestic and other cognitive disorders (20 sources)Early onset Alzheimer's disease with behavioral disturbance; Translations: [Alzheimer's disease with early onset]Onset: 09-26-2023 Resolved: 756104-09-7122RiomgnyInfzwlgef of lipid metabolism (20 sources)Hyperlipidemia, unspecified; Translations: [Dyslipidemia]Onset: 09-02-2022 Resolved: 509485-15-4709OexmvkjSrbbhajas hypertension (20 sources)Essential (primary) hypertension; Translations: [Essential hypertension]Onset: 318458-50-3323EhrgywzHcens of unknown origin (2 sources)Fever, unspecified; Translations: [FEVER UNSPECIFIED]Onset: 21-97-5901MmycyuarUqos disorders (20 sources)Depressive disorder; Translations: [Depression]Onset: 06-27-2023 10-86-4968MtdxmpqBaygobh (4 sources)Pain in toe; Translations: [Tinea unguium]15-54-2323RnelcmouRqpldk and vomiting (4 sources)Nausea with vomiting, unspecified; Translations: [NAUSEA WITH VOMITING UNSPECIFIED]Onset: 28-25-8040YilhydkiJkmyyizzkwfxjo (20 sources)Unilateral primary osteoarthritis, right hip; Translations: [Arthritis of left acromioclavicular joint]Onset: 62-34-2094WyjabtcLpjen aftercare (1 source)jail (current) use of aspirin; Translations: [ELEVATOR SERVICEMAN CURRENT USE OF ASPIRIN]Onset: 51-85-0460CojtpuiiGyyji connective tissue disease (6 sources)Bursitis, right hand; Translations: [Bursitis of right wrist] 57-19-4146LxlvwztzNkwwg diseases of veins and lymphatics (4 sources)Vascular insufficiency; Translations: [Venous insufficiency (chronic) (peripheral)]30-06-5590MiuqegcaFmnsz gastrointestinal disorders (1 source)Diarrhea, unspecified; Translations: [DIARRHEA UNSPECIFIED]Onset: 51-33-6164LeyzrdwxTabci hereditary and degenerative nervous system conditions (20 sources)Mild cognitive impairment, so stated; Translations: [Mild cognitive impairment, so stated]Onset: 400014-78-7533VjlpzqmZuhhn non-traumatic joint disorders (2 sources)Pain of right wrist; Translations: [Pain in right wrist]05-15-2025 EpisodicSchizophrenia and other psychotic disorders (18 sources)Delusional disorder; Translations: [Delusional disorders]Onset: 934825-55-4966OjdnbbfXgljavjvphd; intervertebral disc disorders; other back problems (2 sources)Other cervical disc degeneration, high cervical region; Translations: [Other intervertebral disc degeneration, lumbar region]Onset: 69-67-9049Gpetsrs Thyroid disorders (20 sources)Hypothyroidism; Translations: [Hypothyroidism, unspecified]Onset: 326303-61-3519DczwwddBbnbfeysjllp (1 source)CONTACT W/AND (SUSP) EXPOS COVID-19; Translations: [CONTACT W/AND (SUSP) EXPOS COVID-19]Onset: 12-21-2022 Past or Other Problems Problem ClassificationProblemDateDocumented DateEpisodic/ChronicConditions associated with dizziness or vertigo (20 sources)Dizziness and giddiness; Translations: [Dizziness]Onset: 06-27-2023 21-14-5713UcnpceqiOjshr valve disorders (20 sources)Cardiac murmur, unspecified; Translations: [Heart murmur]Onset: 369685-94-1962TgpbhnvqIdqp disorders (20 sources)Mood disordersOnset: 01-06-2024 Resolved: 670618-76-7910Kgakwybnvrb chest pain (4 sources)Chest pain, unspecified; Translations: [CHEST PAIN UNSPECIFIED]Onset: 04-47-7939KiclkgrkHckdrudzeku deficiencies (20 sources)Cobalamin deficiency; Translations: [Deficiency of other specified B group vitamins]Onset: 751503-96-2365XiwvlweeKfjgd circulatory disease (20 sources)Low blood pressure; Translations: [Hypotension, unspecified]Onset: 05-15-2014 Resolved: 453629-49-4248ZmxdjcthLyysr injuries and conditions due to external causes (4 sources)History of falling; Translations: [HISTORY OF FALLING]Onset: 88-99-9062IgzlomeeRmlkm lower respiratory disease (1 source)Shortness of breath; Translations: [SHORTNESS OF BREATH]Onset: 83-96-7968AgneuiigEvnfp non-traumatic joint disorders (20 sources)Pain in left shoulder; Translations: [Pain in joint, shoulder region]Onset: 195029-31-1995RasrjsitCccvi nutritional; endocrine; and metabolic disorders (4 sources)Overweight; Translations: [OVERWEIGHT]Onset: 71-24-1496TtapgnbqSkjbq screening for suspected conditions (not mental disorders or infectious disease) (20 sources)Patient encounter status; Translations: [Encounter for screening mammogram for malignant neoplasm of breast]Onset: 261399-18-1975Bcooowti Residual codes; unclassified (1 source)Family history of ischemic heart disease and other diseases of the circulatory system; Translations: [FAM HX ISCHEMIC HRT DZ OTH DZ CIRC]Onset: 69-57-0287TsvrocujKkjosmjs codes; unclassified (20 sources)Confusional state; Translations: [Disorientation, unspecified]Onset: 378034-30-6799NqkukdlmBdihjdty codes; unclassified (15 sources)Colon cancer screening declined; Translations: [Procedure and treatment not carried out because of patient's decision for unspecified reasons] Onset: 952835-47-9379KnebqwlqZgiibzraaxezk and other psychotic disorders (13 sources)Brief reactive psychosis; Translations: [Brief psychotic disorder] Onset: 250100-42-9053IvexidqsOhykoabgshx; intervertebral disc disorders; other back problems (1 source)Cervicalgia; Translations: [CERVICALGIA]Onset: 11-40-8916Yquzszov Unclassified (10 sources)Onset: Viral infection (20 sources)Disease caused by 2019-nCoV; Translations: [COVID-19]Onset: 392463-80-2413Wgokaknb Results Test NameValueInterpretationReference RangeFacilityCholesterol in LDL Calc [Mass/Vol]Ordered By: Evelyn Tariq on 53-55-5616Lvffehwdscz in LDL [Mass/Vol] 119.0 mg/dLSelect Medical Specialty Hospital - ColumbusComment on above:<100 mg/dl PACOSTV174-633 mg/dl NEAR OR ABOVE ZLKTDVD905-599 mg/dl BORDERLINE HDKD708-933 mg/dl HIGH>190 mg/dl VERY HIGHCholesterol in VLDL Calc [Mass/Vol]Ordered By: Evelyn Tariq on 16-30-7779Ncrfvbwvpco in VLDL [Mass/Vol]17.6 mg/dLSelect Medical Specialty Hospital - ColumbusGlobulin Calc (S) [Mass/Vol]Ordered By: Evelyn Tariq on 07-81-9556Hqtxbhqk (S) [Mass/Vol]4.0 g/dLSelect Medical Specialty Hospital - Columbus Glomerular filtration rate (GFR) estimation in non- AmericanOrdered By: Evelyn Tariq on 39-90-1443TAI/1.73 sq M.predicted among non-blacks MDRD (S/P/Bld) [Vol rate/Area]51 mL/min/{1.73_m2}Low>=60 mL/min/1.73m [address] [place], [place] [address]Laboratory - Chemistry and Chemistry - challengeOrdered By: Evelyn Tariq on 32-07-8004Ojlaqlc [Mass/Vol]3.2 g/dLLow3.4-5.0[facility] - ColumbusALP [Catalytic activity/Vol]85 U/Y07-302ClrnttnjdSelect Medical Specialty Hospital - ColumbusALT [Catalytic activity/Vol]12 U/KJsg25-79EnbajrptrSelect Medical Specialty Hospital - ColumbusAST [Catalytic activity/Vol]11 U/BCtw53-00QotwmamziSelect Medical Specialty Hospital - ColumbusBilirubin [Mass/Vol]0.8 mg/dL0.2-1.0[facility] - ColumbusCalcium [Mass/Vol]9.3 mg/dL8.5-10.1FTrinity Health System Twin City Medical CenterChloride [Moles/Vol]107 mmol/C37-343WycxkwxugSelect Medical Specialty Hospital - Columbus Cholesterol [Mass/Vol]205 mg/dLHigh<=200[facility] Cholesterol in HDL [Mass/Vol]69 mg/aGUspc74-61GppbusdooSelect Medical Specialty Hospital - Columbus Comment on above:> or =60 mg/dl - LOW CARDIOVASCULAR RISK<40 mg/dl - HIGH CARDIOVASCULAR RISKCO2 [Moles/Vol]29.8 mmol/L21.0-32.0[facility] - ColumbusCreatinine [Mass/Vol]1.05 mg/dLHigh0.55-1.02[facility] ColumbusGFR/1.73 sq M.predicted MDRD (S/P/Bld) [Vol rate/Area]mL/min/{1.73_m2}>=60 mL/min/1.73m 2FTrinity Health System Twin City Medical CenterGlucose [Mass/Vol]92 mg/rP57-347 [facility] ColumbusPotassium [Moles/Vol]4.3 mmol/L3.5-5.1FTrinity Health System Twin City Medical CenterProtein [Mass/Vol]7.2 g/dL6.4-8.2FCleveland Clinic South Pointe Hospitalodium [Moles/Vol]143 mmol/B874-227SxxggjcnkSelect Medical Specialty Hospital - ColumbusTriglyceride [Mass/Vol]88 mg/dL<=150[facility] ColumbusUrea nitrogen [Mass/Vol]15.0 mg/dL7.0-18.0[facility] - ColumbusUrea nitrogen/Creatinine [Mass ratio]14.3 mg/mgParkview Healtherum or plasma albumin/globulin mass ratioOrdered By: Evelyn Tariq on 05-31-2025 Albumin/Globulin [Mass ratio]0.8 {ratio}Parkview Healtherum or plasma anion gap determinationOrdered By: Evelyn Tariq on 71-15-4363Pldiq gap [Moles/Vol]10.5 mmol/LFCleveland Clinic South Pointe Hospitalerum or plasma total cholesterol/high density lipoprotein (HDL) cholesterol mass ratOrdered By: Evelyn Tariq on 33-55-5398Ylalpvocmds.total/Cholesterol in HDL [Mass ratio]3.0 {ratio}[facility] - ColumbusComment on above:3.3 - 4.4 LOW RISK4.4 - 7.1 AVERAGE RISK7.1 - 11.0 MODERATE RISK>11.0 HIGH RISKX-ray reportOrdered By: Rajan Chavez on 95-40-0771Lgyms reportOHIO [facility] Main [address] [place] [address] XRay Report Signed Patient: Kevon Campos MR#: [id number] : 1950 Acct:[id number] Age/Sex: 75 / F ADM Date: 5 Loc: XDUCLY Room: Type: [facility] Attending Dr: Charley Lam APRN Copies to: [...] fracture or dislocation. Degenerative changes are noted alongthe distal radioulnar joint. There is diffuse soft tissue swelling. XR/XR wrist RT min 3V* IMPRESSION: No acute displaced fracture. Significant degenerative changes are noted in the wrist with accompanying soft tissue swelling. Impression dictated by: Rajan Chavez M.D. 05/15/2025 10:40 AM Dictation Location: RADIO-PC-17 Transcribed By: TEDDY 05/15/25 1040 Dictated By: Rajan Chavez II, MD 05/15/251033 Signed By: 05/15/25 1040 [facility] Work Phone: XR wrist RT min 3V*on 51-01-8121PN wrist RT min 3V* [facility] [place] [place] [address] XRay Report Signed Patient: Kevon Campos MR#: [id number] : 1950 Acct:[id number] Age/Sex: 75 / F ADM Date: 05/15/25 Loc: XDUCLY Room: Type: [facility] Attending Dr: Charley Lam APRN Copies to: [...] Chavez M.D. 05/15/2025 10:40 AM Dictation Location: RADIO-PC-17 Transcribed By: TEDDY 05/15/25 1040 Dictated By: Rajan Chavez II, MD 05/15/25 1034 Signed By: 05/15/25 1040[facility] Physician GroupMG Breast - bilateral Screening on 68-47-3319[address] [address] Mammography Report Signed Patient: KEVON CAMPOS MR#: [id number] : 1950 Acct:[id number] Age/Sex: 75 / F ADM Date: 03/09/25 Loc: MAMMO Attending Dr: Evelyn Tariq NP Ordering Physician: Evelyn Tariq NP Results: Date of Service: 03/09/25 Follow Up: Procedure(s): MM screening mammo BI Accession Number(s): [id number] cc: Evelyn Tariq NP Patient Name: KEVON CAMPOS MR#: [id number] : 1950 Exam Date: 03/09/2025 Ordering Doctor: [...] Treatments None Family Cancers None LOCATION: [facility] BREAST COMPOSITION: The breasts are heterogeneously [...] Signed By: 03/09/25 1346 DD/ 1345 TD/TT: Concrete Wall Grinder Operator:THIERNOHRadiology, Radiologist, - 03/09/2025 [place] [address] Mammography Report Signed Patient: KEVON CAMPOS MR#: [id number] : 1950 Acct:[id number] Age/Sex: 75 / F ADM Date: 03/09/25 Loc: MAMMO Attending Dr: Evelyn Tariq NP Ordering Physician: Evelyn Tariq NP Results: Date of Service: 03/09/25 Follow Up: Procedure(s): MM screening mammo BI Accession Number(s): [id number] cc: Evelyn Tariq NP Patient Name: KEVON CAMPOS MR#: [id number] : 1950 Exam Date: 03/09/2025 Ordering Doctor: NEIDA TARIQ AIRCRAFT ENGINE DISMANTLER RADIOLOGY REPORT PROCEDURE: MM SCREENING MAMMO BI [...] Treatments None Family Cancers None LOCATION: [facility] BREAST COMPOSITION: The breasts are heterogeneously [...] Chavez M.D. Signed By: 03/09/25 1346 DD/ 44 TD/TT: Concrete Wall Grinder Operator: [facility] HealthcareRadiology Study observation (narrative)[facility] HospitalMG Breast - bilateral ScreeningOrdered By: Radiologist Radiology on 95-22-6843ZZLG Healthcare Work Phone: [facility] UA (CLEAN/CATCH) MICROSCOPIC IF INDICATEon 19-43-7966BATCLXRHG URINENegativeNEGATIVENOMS HealthcareBLOOD URINETRACE-I NEGATIVENOMS HealthcareClarity (U)CLEARCLEARNOMS HealthcareColor (U)LT. YELLOW YELLOWNOTX HealthcareGLUCOSE URINE UANegativeNEGATIVE mg/dLNOTX Healthcare Interpretation and review of laboratory resultsAbnormalNOMS HealthcareKetones Ql (U)NegativeNEGATIVE mg/dLNOTX HealthcareLeukocyte esterase Test strip Ql (U) SMALLAbnormalNEGATIVENOMS HealthcareNITRITE URINENegativeNEGATIVENOTX Healthcare pH (U)6.0 [pH]5.0 - 9.0NOTX HealthcarePROTEIN URINENegativeNEG/TRACE mg/dLNOTX HealthcareSPECIFIC GRAVITY URINE<=1.911Lxethvxj9.005 - 1.025NOTX HealthcareURINE MICROSCOPIC INDICATEDYESNOTX HealthcareUROBILINOGEN URINE0.2 EU/dL0.2 - 1.0 EU/dLNOTX HealthcareCLINISYNCNOMS HealthcareURINALYSISon 30-26-8801Snpvciafj sediment LM Ql (Urine sed)PRESENTAbFlower HospitalComment on above:Performed By: #### CBCA, HA1C, CMP, 71795-7, THYR, 3051-0 #### [facility] ([id number]) [address], [address] [place], [place] [address]Rnpzzhqcq Ql (U)NegativeBuffaloNEGWayne HealthCare Main Campus Comment on above:Performed By: #### CBCA, HA1C, CMP, 34086-1, THYR, 3051-0 #### [facility] ([id number]) [address], [address] [place], [place] [address]GNAVP/HGBNegativeNormalNEGProSt. David'S Medical CenterComment on above:Performed By: #### CBCA, HA1C, CMP, 20739-3, THYR, 3051-0 #### [facility] ([id number]) [address] [place], [place] [address]Zcgvy (U)YELLOWNormalYELLOWProVeterans Health Administration HospitalComment on above:Performed By: #### CBCA, HA1C, CMP, 85202-6, THYR, 3051-0 #### [facility] ([id number]) [address], [address] [place], [place] [address]Bnxqeak Ql (U)NegativeNormalNEGWayne HealthCare Main CampusComment on above:Performed By: #### CBCA, HA1C, CMP, 69995-6, THYR, 3051-0 #### [facility] ([id number]) [address], [address] [place], [place] [address]Xxlcatp Ql (U)TraceAbnormalNEGWayne HealthCare Main CampusComment on above:Performed By: #### CBCA, HA1C, CMP, 54528-7, THYR, 3051-0 #### [facility] ([id number]) [address], [address] [place], [place] [address]Qzdhkamyj esterase Test strip Ql (U)NegativeNormalNEGProSt. David'S Medical CenterComkarmanos cancer center on above:Performed By: #### CBCA, HA1C, CMP, 44729-0, THYR, 3051-0 #### [facility] ([id number]) [address] [place], [place] [address]Oiqohal Ql (U)NegativeNormalNEGProSt. David'S Medical CenterComment on above:Performed By: #### CBCA, HA1C, CMP, 41740-9, THYR, 3051-0 #### [facility] ([id number]) [address], [address] [place], [place] [address]aC (U)6.0 [pH]Normal5.0-8.5PProMedica Bay Park HospitalComment on above:Performed By: #### CBCA, HA1C, CMP, 93242-7, THYR, 3051-0 #### [facility] ([id number]) [address] [address] [place], [place] [address]Yssvssq Ql (U)30 mg/dLAbnormalNEGProNorwalk Memorial Hospitalca [facility] Comment on above:Performed By: #### CBCA, HA1C, CMP, 09882-7, THYR, 3051-0 #### [facility] ([id number]) [address], [address] [place], [place] [address]D.B.CELLS0 /hpfNormal0-5PProMedica Bay Park HospitalComment on above:Performed By: #### CBCA, HA1C, CMP, 90683-8, THYR, 3051-0 #### [facility] ([id number]) [address] [place], [place] [address]Ucsoojpf gravity (U) [Rel density]1.910Thitna9.003-1.035 [facility] And Medical CenterComment on above:Performed By: #### CBCA, HA1C, CMP, 91282-2, THYR, 3051-0 #### [facility] ([id number]) [address] [facility] [address] [place], [place] [address]NFNYDSAVSDQLYLmlinanzBRZWGKyyBrtcmf [place] HospitalComment on above:Performed By: #### CBCA, HA1C, CMP, 67676-7, THYR, 3051-0 #### [facility] ([id number]) [address] [place], [place] [address]QTCO ACID CRYSTALSPRESENTAMercy Health West Hospital Comment on above:Performed By: #### CBCA, HA1C, CMP, 43088-3, THYR, 3051-0 #### [facility] ([id number]) [address] [place], [place] [address]Jomvmzjlvaew Qn (U)0.2 {Quan'U}/dLNormal<1.1PProMedica Bay Park HospitalComment on above:Performed By: #### CBCA, HA1C, CMP, 89932-9, THYR, 3051-0 #### [facility] ([id number]) [address] [place], [place] [address]K.B.CELLS20 /hpfHigh0-5PProMedica Bay Park HospitalComment on above:Performed By: #### CBCA, HA1C, CMP, 91493-7, THYR, 3051-0 #### [facility] ([id number]) [address] [place], [place] [address]PQV CASTS1 /daaVzqj9WhrSlgjixSt. David'S Medical CenterComment on above: Performed By: #### CBCA, HA1C, CMP, 47122-7, THYR, 3051-0 #### [facility] ([id number]) [address] [place], [place] [address]UYKJX CULTUREon 60-02-3077Advbynky identified Cx Nom (U)CULTURE RESULTS <10,000 ORGANISMS/ML NORMAL URO GENITAL FLORANormalWayne HealthCare Main Campus Comment on above:Performed By: #### CBCA, HA1C, CMP, 16290-0, THYR, 3051-0 #### [facility] ([id number]) [address], [address] [place], [place] [address]ASD AND AUTO DIFFon 84-42-0802Kygk form neutrophils/100 WBC (Bld)38.0 %NormalWayne HealthCare Main CampusComment on above:Performed By: #### CMP, CBCA #### [facility] ([id number]) [address], [address] [place], [place] [address]Ffkmnvjanak distribution width (RBC) [Ratio]13.6 %Normal 11.5-15.0Way[facility] HealthCare Main CampusComment on above:Performed By: #### CMP, CBCA #### [facility] ([id number]) [address], [address] [place], [place] [address]Nwrcsdlsas (Bld) [Volume fraction]37.6 %Gmqold55-84RsbEqelscSt. David'S Medical CenterComment on above:Performed By: #### CMP, CBCA #### [facility] ([id number]) [address], [address] [place], [place] [address]Hrasugtfle (Bld) [Mass/Vol]13.2 g/kAGmzslc28.7-15.5PProMedica Bay Park HospitalComment on above:Performed By: #### CMP, CBCA #### [facility] ([id number]) [address], [address] [place], [place] [address]Gjmcczkhvik (Bld) [#/Vol]0.5 10*3/uLLow1.0-3.5PProMedica Bay Park HospitalComment on above:Performed By: #### CMP, CBCA #### [facility] ([id number]) [address], [address] [place], [place] [address]Wkvcmoyxacl/100 WBC (Bld)10.0 %NormalWayne HealthCare Main Campus Comment on above:Performed By: #### CMP, CBCA #### [facility] ([id number]) [address], [address] [place], [place] [address]AVA (RBC) [Entitic mass]32.8 enZuyhkb17-64HaxLlqpucSt. David'S Medical CenterComment on above:Performed By: #### CMP, CBCA #### [facility] ([id number]) [address], [address] [place], [place] [address]POWB (RBC) [Mass/Vol]35.1 g/gVYydfam84-45LmpPeniqs [facility] HospitalComment on above:Performed By: #### CMP, CBCA #### [facility] ([id number]) [address], [address] [place], [place] [address]CNE (RBC) [Entitic vol]94 qMFpshxc21-675NkfYlmplv [facility] HospitalComment on above:Performed By: #### CMP, CBCA #### [facility] ([id number]) [address], [address] [place], [place] [address]Zmzybojioyiuvv/100 WBC (Bld)2.0 %NormalProSt. David'S Medical CenterComment on above:Performed By: #### CMP, CBCA #### [facility] ([id number]) [address], [address] [place], [place] [address]Wxxywcwcf (Bld) [#/Vol]0.6 10*3/uLNormal0-0.9ProSt. David'S Medical CenterComment on above:Performed By: #### CMP, CBCA #### [facility] ([id number]) [address], [address] [place], [place] [address]Brwqyojpj/100 WBC (Bld)11.0 %NormalWayne HealthCare Main Campus Comment on above:Performed By: #### CMP, CBCA #### [facility] ([id number]) [address], [address] [place], [place] [address]FHZXWCWUXJ VACUOLES1+AbnormalNONEProMedica [facility] Comment on above:Performed By: #### CMP, CBCA #### [facility] ([id number]) [address], [address] [place], [place] [address]Gmamdjjcdqr (Bld) [#/Vol]4.1 10*3/uLNormal1.5-6.6Way[facility] HealthCare Main CampusComment on above:Performed By: #### CMP, CBCA #### [facility] ([id number]) [address], [address] [place], [place] [address]Wmwryzwj mean volume (Bld) [Entitic vol]9.8 fLNormal7-12 [facility] CampusComment on above:Performed By: #### CMP, CBCA #### [facility] ([id number]) [address] [place], [place] [address]Vcbcqnnrn (Bld) [#/Vol]170 10*3/wBRielaa566-510IypPsrehb [facility] HospitalComment on above:Performed By: #### CMP, CBCA #### [facility] ([id number]) [address] [facility] [place], [place] [address]UGJ COUNT4.01 X10E12/LNormal3.80-5.20[facility] on above:Performed By: #### CMP, CBCA #### [facility] ([id number]) [address] [facility] [facility] [place], [place] [address]ECC LIHNDQWCKT98.0 %NormalProSt. David'S Medical CenterComment on above:Performed By: #### CMP, CBCA #### [facility] ([id number]) [address] [facility] [place], [place] [address]UZB (Bld) [#/Vol]5.3 10*3/uLNormal4.0-11.0Way[facility] HealthCare Main CampusComment on above:Performed By: #### CMP, CBCA #### [facility] ([id number]) [address], [address] [place], [place] [address]KPZFRUPNLSXEP METABOLIC PANELon 02-41-5355Cepizck [Mass/Vol]3.9 g/dLNormal3.2-5.3PProMedica Bay Park HospitalComment on above:Performed By: #### CMP, CBCA #### [facility] ([id number]) [address], [address] [place], [place] [address]XQY [Catalytic activity/Vol]61 U/XCuxpqt79-786OguDmypkgWayne HealthCare Main CampusComment on above:Performed By: #### CMP, CBCA #### [facility] ([id number]) [address], [address] [place], [place] [address]ELX [Catalytic activity/Vol]23 U/LNormal0-31PMiddle Park Medical Center - Granby HospitalComment on above:Performed By: #### CMP, CBCA #### [facility] ([id number]) [address], [address] [place], [place] [address]Sflof gap [Moles/Vol]13 mmol/LNormal5-15ProSt. David'S Medical CenterComment on above:Performed By: #### CMP, CBCA #### [facility] ([id number]) [address], [address] [place], [place] [address]PGV [Catalytic activity/Vol]46 U/LHigh0-41ProSt. David'S Medical CenterComment on above:Performed By: #### CMP, CBCA #### [facility] ([id number]) [address], [address] [place], [place] [address]Emzzkxhtp [Mass/Vol]1.1 mg/dLNormal0.3-1.2PProMedica Bay Park HospitalComment on above:Performed By: #### CMP, CBCA #### [facility] ([id number]) [address], [address] [place], [place] [address]Chnmfip [Mass/Vol]9.1 mg/dLNormal8.5-10.5PProMedica Bay Park HospitalComment on above:Performed By: #### CMP, CBCA #### [facility] ([id number]) [address], [address] [place], [place] [address]Jdyyxutk [Moles/Vol]99 mmol/QDthakl45-856FdzXpsjgsSt. David'S Medical CenterComment on above:Performed By: #### CMP, CBCA #### [facility] ([id number]) [address], [address] [place], [place] [address]PS2 [Moles/Vol]21 mmol/KPxu75-16JbiFbewdvProMedica Bay Park Hospital Comment on above:Performed By: #### REMA CBCA #### [facility] ([id number]) [address] [place], [place] [address]Lpiwwthglu [Mass/Vol]1.29 mg/dLHigh0.40-1.00Way[facility]Care Main CampusComment on above:Result Comment: METHOD TRACEABLE TO IDMS STANDARD Performed By: #### PORSCHE HODGSON #### [facility] ([id number]) [address] [place], [place] [address]UBA/1.73 sq M.predicted among non-blacks MDRD (S/P/Bld) [Vol rate/Area]44 mL/min/{1.73_m2}Low>59ProSt. David'S Medical CenterComment on above: Result Comment: Reported eGFR is based on the CKD-EPI 2020 equation that does not use a race coefficient.Performed By: #### REMA CBCA #### [facility] ([id number]) [address], [address] [place], [place] [address]Mhqhuqw [Mass/Vol]175 mg/oOTbqn42-69UxkMuenmlWayne HealthCare Main Campus Comment on above:Performed By: #### REMA CBCA #### [facility] ([id number]) [address] [place], [place] [address]Najlwuyuu [Moles/Vol]3.3 mmol/LLow3.5-5.0ProSt. David'S Medical CenterComment on above:Performed By: #### REMA CBCA #### [facility] ([id number]) [address], [address] [place], [place] [address]Wqijlua [Mass/Vol]7.0 g/dLNormal6.0-8.0ProSt. David'S Medical CenterComment on above:Performed By: #### REMA CBCA #### [facility] ([id number]) [address] [place], [place] [address]Tskyhd [Moles/Vol]133 mmol/OTqh479-158SqbGkagijWayne HealthCare Main Campus Comment on above:Performed By: #### CMP, CBCA #### [facility] ([id number]) [address], [facility] [address] [place], [place] [address]Kiaj nitrogen [Mass/Vol]20 mg/dLNormal5-27ProSt. David'S Medical CenterComment on above:Performed By: #### CMP, CBCA #### [facility] ([id number]) [address], [address] [place], [place] [address]SNZ AND AUTO DIFFon 44-70-3103PMSNMRXD BASOPHIL0.0 X10E9/LNormal 0.0-0.2PProMedica Bay Park HospitalComment on above:Performed By: #### CBCA, HA1C, CMP, 21596-7, THYR, 3051-0 #### [facility] ([id number]) [address], [address] [address]XBQVYZMQ NEUTROPHIL2.4 X10E9/LNormal1.5-6.6Way[facility] Main CampusComment on above:Performed By: #### CBCA, HA1C, CMP, 50799-2, THYR, 3051-0 #### [facility] ([id number]) [address] [address]Brrewqspz/100 WBC (Bld)0.7 %NormalWayne HealthCare Main Campus Comment on above:Performed By: #### CBCA, HA1C, CMP, 88489-4, THYR, 3051-0 #### [facility] ([id number]) [address] [place], [place] [address]Vqougrfknbi (Bld) [#/Vol]0.1 10*3/uLNormal0.0-0.4[facility]Care Main CampusComment on above:Performed By: #### CBCA, HA1C, CMP, 45990-9, THYR, 3051-0 #### [facility] ([id number]) [address], [address] [place], [place] [address]Dykexueqyuw/100 WBC (Bld)2.1 %NormalWayne HealthCare Main Campus Comment on above:Performed By: #### CBCA, HA1C, CMP, 28732-5, THYR, 3051-0 #### [facility] ([id number]) [address], [facility] [address] [place], [place] [address]Pbnypyaejbc distribution width (RBC) [Ratio]13.8 %Normal 11.5-15.0ProSt. David'S Medical CenterComment on above:Performed By: #### CBCA, HA1C, CMP, 80915-1, THYR, 305-0 #### [facility] ([id number]) [address] [address]Eusykuwnoy (Bld) [Volume fraction]35.9 %Bgmcub57-26CjoPnzsdbSt. David'S Medical CenterComment on above:Performed By: #### CBCA, HA1C, CMP, 13980-8, THYR, 305-0 #### [facility] ([id number]) [address] [address]Ehuzqdrbns (Bld) [Mass/Vol]12.5 g/eQCezylx82.7-15.5PProMedica Bay Park HospitalComment on above:Performed By: #### CBCA, HA1C, CMP, 32303-6, THYR, 3051-0 #### [facility] ([id number]) [address] [address]Jfhiacrphpw (Bld) [#/Vol]1.6 10*3/uLNormal1.0-3.5PProMedica Bay Park HospitalComment on above:Performed By: #### CBCA, HA1C, CMP, 04933-1, THYR, 3051-0 #### [facility] ([id number]) [address], [address] [place], [place] [address]Szixxeyqiys/100 WBC (Bld)34.8 %NormalProSt. David'S Medical Center Comment on above:Performed By: #### CBCA, HA1C, CMP, 80740-2, THYR, 3051-0 #### [facility] ([id number]) [address], [address] [place], [place] [address]BYY (RBC) [Entitic mass]33.2 hfZcralp92-86NvfCnuwncSt. David'S Medical CenterComment on above:Performed By: #### CBCA, HA1C, CMP, 98822-1, THYR, 3051-0 #### [facility] ([id number]) [address] [address] [place], [place] [address]CXBV (RBC) [Mass/Vol]34.8 g/jCFgcjrq18-66SpiAvrhxiSt. David'S Medical CenterComment on above:Performed By: #### CBCA, HA1C, CMP, 97159-6, THYR, 3051-0 #### [facility] ([id number]) [address] [address] [place], [place] [address]HHG (RBC) [Entitic vol]95 bENuotup19-812WgsZinlhv [facility] HospitalComment on above:Performed By: #### CBCA, HA1C, CMP, 40579-5, THYR, 3051-0 #### [facility] ([id number]) [address] [address] [place], [place] [address]Xxcqbaouk (Bld) [#/Vol]0.4 10*3/uLNormal0-0.9[facility] Main CampusComment on above:Performed By: #### CBCA, HA1C, CMP, 95341-3, THYR, 3051-0 #### [facility] ([id number]) [address], [address] [place], [place] [address]Pcnrbjanz/100 WBC (Bld)9.7 %NormalProNorwalk Memorial Hospitalca [facility] Comment on above:Performed By: #### CBCA, HA1C, CMP, 99439-0, THYR, 3051-0 #### [facility] ([id number]) [address] [place], [place] [address]Tgorytbqfyp/100 WBC (Bld)52.7 %[facility] Comment on above:Performed By: #### CBCA, HA1C, CMP, 80785-4, THYR, 3051-0 #### [facility] ([id number]) [address], [address] [place], [place] [address]Qikkjoll mean volume (Bld) [Entitic vol]8.6 fLNormal7-12 [facility] CampusComment on above:Performed By: #### CBCA, HA1C, CMP, 48156-3, THYR, 3051-0 #### [facility] ([id number]) [address], [address] [place], [place] [address]Cnzgpwmgd (Bld) [#/Vol]251 10*3/aFGzmwde368-015TgxRdshouWayne HealthCare Main CampusComment on above:Performed By: #### CBCA, HA1C, CMP, 68209-2, THYR, 3051-0 #### [facility] ([id number]) [address] [place], [place] [address]MFH COUNT3.76 X10E12/LLow3.80-5.20[facility] Comment on above:Performed By: #### CBCA, HA1C, CMP, 02123-8, THYR, 3051-0 #### [facility] ([id number]) [address] [place], [place] [address]XCT (Bld) [#/Vol]4.6 10*3/uLNormal4.0-11.0[facility] CampusComment on above:Performed By: #### CBCA, HA1C, CMP, 09218-4, THYR, 3051-0 #### [facility] ([id number]) [address] [place] [address]WKXVSEXFFNKTV METABOLIC PANELon 60-24-5790Xapyete [Mass/Vol]4.1 g/dLNormal3.2-5.3PProMedica Bay Park HospitalComment on above:Performed By: #### CBCA, HA1C, CMP, 33624-2, THYR, 3051-0 #### [facility] ([id number]) [address] [place] [address]SUY [Catalytic activity/Vol]69 U/BJysgzu93-596XhePnpzibWayne HealthCare Main CampusComment on above:Performed By: #### CBCA, HA1C, CMP, 76704-2, THYR, 3051-0 #### [facility] ([id number]) [address] [place] [address]ACC [Catalytic activity/Vol]9 U/LNormal0-31PProMedica Bay Park HospitalComment on above:Performed By: #### CBCA, HA1C, CMP, 02555-3, THYR, 3051-0 #### [facility] ([id number]) [address] [place], [place] [address]Hypsj gap [Moles/Vol]9 mmol/LNormal5-15ProSt. David'S Medical CenterComment on above:Performed By: #### CBCA, HA1C, CMP, 95040-2, THYR, 3051-0 #### [facility] ([id number]) [address] [place], [place] [address]HUF [Catalytic activity/Vol]18 U/LNormal0-41ProSt. David'S Medical CenterComment on above:Performed By: #### CBCA, HA1C, CMP, 76416-7, THYR, 3051-0 #### [facility] ([id number]) [address], [address] [place] [address]Czakdgqjw [Mass/Vol]1.1 mg/dLNormal0.3-1.2PProMedica Bay Park HospitalComment on above:Performed By: #### CBCA, HA1C, CMP, 65761-5, THYR, 3051-0 #### [facility] ([id number]) [address] [place], [place] [address]Nxwngiy [Mass/Vol]9.4 mg/dLNormal8.5-10.5PProMedica Bay Park HospitalComment on above:Performed By: #### CBCA, HA1C, CMP, 39060-7, THYR, 3051-0 #### [facility] ([id number]) [address] [address] [place], [place] [address]Htmlayyq [Moles/Vol]107 mmol/WCiuwkd70-813JmoLxxkepSt. David'S Medical CenterComment on above:Performed By: #### CBCA, HA1C, CMP, 93290-4, THYR, 3051-0 #### [facility] ([id number]) [address] [address] [place], [place] [address]NU1 [Moles/Vol]28 mmol/JRrzsqh22-04WedJhtjlrProMedica Bay Park Hospital Comment on above:Performed By: #### CBCA, HA1C, CMP, 46441-5, THYR, 3051-0 #### [facility] ([id number]) [address] [address] [place], [place] [address]Xyrnoufatn [Mass/Vol]0.85 mg/dLNormal0.40-1.00ProSt. David'S Medical CenterComment on above:Result Comment: METHOD TRACEABLE TO IDMS STANDARD Performed By: #### CBCA, HA1C, CMP, 16847-6, THYR, 3051-0 #### [facility] ([id number]) [address] [address] [place], [place] [address]BPF/1.73 sq M.predicted among non-blacks MDRD (S/P/Bld) [Vol rate/Area]73 mL/min/{1.73_m2}Normal>59ProSt. David'S Medical CenterComment on above:Result Comment: Reported eGFR is based on the CKD-EPI 2020 equation that does not use a race coefficient.Performed By: #### CBCMitzi, HA1C, CMP, 20346-5, THYR, 3051-0 #### [facility] ([id number]) [address] [place], [place] [address]Oewkvzt [Mass/Vol]90 mg/bOQjxerw48-07UxmGwtnuuWayne HealthCare Main Campus Comment on above:Performed By: #### CBCMitzi, HA1C, CMP, 08697-3, THYR, 305-0 #### [facility] ([id number]) [address] [place], [place] [address]Lzjfdvfle [Moles/Vol]4.0 mmol/LNormal3.5-5.0ProSt. David'S Medical CenterComment on above:Performed By: #### CBCA, HA1C, CMP, 64527-9, THYR, 305-0 #### [facility] ([id number]) [address] [place], [place] [address]Qibyehb [Mass/Vol]6.8 g/dLNormal6.0-8.0[facility] CampusComment on above:Performed By: #### CBCA, HA1C, CMP, 37617-8, THYR, 305-0 #### [facility] ([id number]) [address], [address] [place], [place] [address]Yrqwzr [Moles/Vol]144 mmol/UVieoqh203-100DklAhiqtd [facility] HospitalComment on above:Performed By: #### CBCA, HA1C, CMP, 52954-1, THYR, 3051-0 #### [facility] ([id number]) [address] [place], [place] [address]Faeu nitrogen [Mass/Vol]19 mg/dLNormal5-27ProSt. David'S Medical CenterComment on above:Performed By: #### CBCA, HA1C, CMP, 64984-0, THYR, 305-0 #### [facility] ([id number]) [address] [place], [place] [address]WFWO T3on 68-24-8332Ikci T3 [Mass/Vol]2.66 pg/mLNormal2.50-3.90 [facility] CampusComment on above:Performed By: #### CBCA, HA1C, CMP, 99401-6, THYR, 305-0 #### [facility] ([id number]) [address] [facility] [place], [place] [address]VDN A1C (GLYCO-HGB)on 38-47-8642Aijklfu [Mass/Vol]108 mg/dL NormalWayne HealthCare Main CampusComment on above:Performed By: #### CBCA, HA1C, CMP, 75997-5, THYR, 305-0 #### [facility] ([id number]) [address] [facility], [address] [place], [place] [address]XoU7o (Bld) [Mass fraction]5.4 %Normal4.4-5.6[facility] Main CampusComkarmanos cancer center on above:Result Comment: NOTE ADA Guidelines Result HgbA1c Normal : less than 5.7 % Prediabetes : 5.7 % to 6.4 % Diabetes : > 6.4 % Use with caution in patients with abnormal hemoglobin variants as the half-life of red blood cells and in vivo glycation rates are affected.Performed By: #### CBCA, HA1C, CMP, 80463-8, THYR, 305-0 #### [facility] ([id number]) [address] [place], [place] [address]Juzfpxk Qnon 00-72-6579YWWYFNU7.91 uIU/mLNormal1.00-23.00 [facility] on above:Result Comment: Ref. range is for FASTING NON-DIABETIC POPULATION.Performed By: #### 42408-8 #### [facility] ([id number]) [address] [facility], [address] [place], [place] [address]Bahbz 1995 panelon 71-91-9904Fbgaznjvzbt [Mass/Vol]222 mg/dLHigh 150-200[facility] on above:Performed By: #### CBCA, HA1C, CMP, 33482-0, THYR, 3051-0 #### [facility] ([id number]) [address] [place], [place] [address]Yftetfaiulz in HDL [Mass/Vol]67 mg/dLNormal>39ProThe [facility] Center of [facility] [place] on above:Result Comment: HDL <40 mg/dL - High Risk HDL > or = 40mg/dL- Desirable HDL >60 mg/dL - Negative Risk Performed By: #### PORSCHE, HA1C, CMP, 34500-3, THYR, 3051-0 #### [facility] ([id number]) [address] [place], [place] [address]Kfkrfriaesi in LDL [Mass/Vol]138 mg/dLHigh<130ProThe Medical Center of [facility] [place] on above:Result Comment: LDL <100 mg/dL - Desirable LDL >160 mg/dL - High Risk Performed By: #### CBCA, HA1C, CMP, 51285-0, THYR, 3051-0 #### [facility] ([id number]) [address] [place], [place] [address]Yboeyuduubp in VLDL [Mass/Vol]17 mg/dLNormal0-30ProSt. David'S Medical CenterComment on above:Performed By: #### CBCA, HA1C, CMP, 43995-0, THYR, 3051-0 #### [facility] ([id number]) [address] [place], [place] [address]FVTRZSVOGEJ:HDL3.9Lyaaqp2.0-5.0ProSt. David'S Medical CenterComment on above:Performed By: #### CBCA, HA1C, CMP, 96522-6, THYR, 3051-0 #### [facility] ([id number]) [address] [place], [place] [address]Dznrcezcivfo [Mass/Vol]86 mg/dRZmrstn71-623OsxZyuykf Fremont HospitalComment on above:Performed By: #### CBCMitzi, HA1C, CMP, 11597-0, THYR, 3051-0 #### [facility] ([id number]) [address] [place], [place] [address]CCDXEJX PROFILEon 00-66-8902Djyi T4 [Mass/Vol]0.72 ng/dLNormal 0.61-1.60ProSt. David'S Medical CenterComment on above:Performed By: #### CBCA, HA1C, CMP, 17191-3, THYR, 3051-0 #### [facility] ([id number]) [address] [place], [place] [address]ZIY2.71 uIU/mLNormal0.49-4.67ProSt. David'S Medical CenterComment on above:Performed By: #### CBCA, HA1C, CMP, 93702-7, THYR, 3051-0 #### [facility] ([id number]) [address] [place], [place] [address]JX BRAIN WO CONTon 55-24-1519IR BRAIN WO CONTMR BRAIN WO CONT MRI brain: HISTORY: Cognitive impairment. Mental status change. Multisequence multiplanar imaging of the brain was obtained. Few foci of increased signal within the white matter best visualized on FLAIR sequences are age-appropriate. The diffusion-weighted imagesand corresponding ADC map show no focus of diffusion restriction or acute intracranial ischemia. Cerebellar hemispheres appear symmetric. Pituitary infundibulum is midline. No intracranial mass or evidence of vasogenic edema. Cerebral volume appears appropriate. No significant ventricular dilatation. The paranasal sinuses and mastoid air cells are clear. IMPRESSION: No acute intracranial findings. Finalized by Maurice Haskins MD on 09/26/2023 7:49 PMNormalProNorwalk Memorial Hospitalca [facility] Hospital And Medical CenterFolate [Mass/volume] in Serum or PlasmaOrdered By: Jorge Solorzano on 27-92-2408Ismric [Mass/Vol]15.2 ng/mL>5.9[facility] Comment on above:Folate reference range: >5.9 ng/mlThe WHO technical consultation on folate and vitamin o27szahgyhkymdd has determined that folate concentrations lessthan 4 ng/ml are considered deficient.Thyrotropin [Units/volume] in Serum or PlasmaOrdered By: Jorge Solorzano on 52-61-3053XCT Qn 1.89 m[IU]/L0.45-5.33[facility] ColumbusVitamin B12 ser/plas Ordered By: Jroge Solorzano on 45-56-6483Zmoipkwsk (Vitamin B12) [Mass/Vol]711 pg/zY378-431WorsivlnjSelect Medical Specialty Hospital - ColumbusMM TOMOSYNTHESIS SCREENING BIon 95-01-2222[place] [address] Mammography Report Signed Patient: KEVON CAMPOS MR#: [id number] : 1950 Acct:[id number] Age/Sex: 73 / F ADM Date: 08/27/23 Loc: MAMMO Attending Dr: Shaikh Natalia Sheffield Ordering Physician: Shaikh Nettie Fisher Results: Date of Service: 08/27/23 Follow Up: Procedure(s): MM tomosynthesis screening BI Accession Number(s): [id number] cc: Shaikh Nettie Fisher Patient Name: KEVON CAMPOS MR#: [id number] : 1950 Exam Date: 08/27/2023 Ordering Doctor: [...] Treatments None Family Cancers None LOCATION: [facility] BREAST COMPOSITION: Heterogeneously dense,which may obscure small [...] PALPABLE LUMP SHOULD BE BIOPSIED. Dictated by: Carlos Chavira MD on 08/27/2023 at 10:10 Approved by: Carlos Chavira MD on 08/27/2023 at 10:11 Dictated By: Carlos Chavira M.D. Signed By: 08/27/23 1013 DD/ 1012 TD/TT: Concrete Wall Grinder Operator:TBHRadiology, RadiologistMD - 08/27/2023 [place] [address] Mammography Report Signed Patient: KEVON CAMPOS MR#: [id number] : 1950 Acct:[id number] Age/Sex: 73 / F ADM Date: 08/27/23 Loc: MAMMO Attending Dr: Shaikh Natalia Sheffield Ordering Physician: Shaikh Nettie Fisher Results: Date of Service: 08/27/23 Follow Up: Procedure(s): MM tomosynthesis screening BI Accession Number(s): [id number] cc: Shaikh Nettie Fisher Patient Name: KEVON CAMPOS MR#: [id number] : 1950 Exam Date: 08/27/2023 Ordering Doctor: [...] Treatments None Family Cancers None LOCATION: [facility] BREAST COMPOSITION: Heterogeneously dense,which may obscure small [...] PALPABLE LUMP SHOULD BE BIOPSIED. Dictated by: Carlos Chavira MD on 08/27/2023 at 10:10 Approved by: Carlos Chavira MD on 08/27/2023 at 10:11 Dictated By: Carlos Chavira M.D. Signed By: 08/27/23 1013 DD/ 1012 TD/TT: Concrete Wall Grinder Operator: [facility] HealthcareRadiology Study observation (narrative)[facility] TOMOSYNTHESIS SCREENING BIOrdered By: Radiologist Radiology on 48-40-2697IGZLHannibal Regional Hospital Work Phone: cbc AUTO DIFFon [id number] #0.0 103/ulNormal 0.0-0.1The [facility]edo HospitalComment on above:Performed By: #### CBC ####[facility] [address] [address]Dr.Yilan Hernández Basophils/100 WBC (Bld)0.1 %Critically low0.2-2.0The [facility] HospitalComment on above:Performed By: #### CBC ####[facility] Sgwxzggypi[address] [place], [place] [address]Dr.Yilan ChangEO #0.1 103/ulNormal0.0-0.7The [facility] HospitalComment on above:Performed By: #### CBC ####[facility] Cyxaeajyya615[address] [place], [place] [address]Dr.Veena ChangEosinophils/100 WBC (Bld)1.2 %Normal0.9-7.0The [facility] HospitalComment on above:Performed By: #### CBC ####[facility] Nzmprpoxmx487[address] [place], [place] [address]Dr.Veena ChangErythrocyte distribution width (RBC) [Ratio]13.2 %Normal 11.0-15.0The [facility] HospitalComment on above:Performed By: #### CBC ####[facility] Gltqjqjcqz1860[address] [place], [place] [address]Dr. Veena ChangHematocrit (Bld) [Volume fraction]38.4 %Fgfocq48.0-48.0The [facility] HospitalComment on above:Performed By: #### CBC ####[facility] Kmpvkwrfxp547174 [address] [place], [place] [address]Dr.Veena ChangHemoglobin (Bld) [Mass/Vol]12.6 g/oPNjmzla84.0-16.0The [facility] HospitalComment on above: Performed By: #### CBC ####[facility] Foanccyikd674[address] [place], [place] [address]Dr.Veena ChangIG #0.02 10e3/ulNormal0.00-0.03The [facility] HospitalComment on above:Performed By: #### CBC ####[facility] Thaekzkpdz8839[address] [place], [place] [address]Dr.Valelan ChangIG %0.3 %Normal 0.0-0.5The [facility] HospitalComment on above:Performed By: #### CBC ####[facility] Lcrwqrdame311[address] [place], [place] [address]Dr.Yilan ChangLYMPH #0.3 103/ulCritically low1.2-3.8The [facility] HospitalComment on above:Performed By: #### CBC ####[facility] O[address]dfspyhi[address] [address]Dr.Veena HernánedzLymphocytes/100 WBC (Bld)4.1 %Critically low20.5-60.0The [facility] HospitalComment on above:Performed By: #### CBC ####[facility] P[address]atktce[address] [address]Dr.Veena HernándezMANUAL DIFF REQ NONormalThe [facility] HospitalComment on above:Performed By: #### CBC ####[facility] Fryprgrgsl695[address] [place], [place] [address]Dr. Veena HernándezH (RBC) [Entitic mass]31.4 wpFnzxij70.7-34.0[facility] Comment on above:Performed By: #### CBC ####[facility] Bfyxbmvipp7[address] [place], [place] [address]Dr.Veena HernándezMCHC (RBC) [Mass/Vol]32.8 g/dL Doqqyk67.9-35.2The [facility] HospitalComment on above:Performed By: #### CBC ####[facility] Xslloqcefb082874 [address] [place], [place] [address]Dr. Veena HernándezMCV (RBC) [Entitic vol]95.8 iPQeynjo67.0-99.0The [facility] Comment on above:Performed By: #### CBC ####[facility] Uzbxmgrzdk3733[address] [place], [place] [address]Dr.Veena HernándezMONO #0.3 103/ulNormal0.3-0.8 The [facility] HospitalComment on above:Performed By: #### CBC ####[facility] Pehssvjrjv803974 [address] [place], [place] [address]Dr.Veena Hernández Monocytes/100 WBC (Bld)3.8 %Normal1.7-12.0The [facility] HospitalComment on above: Performed By: #### CBC ####[facility] P[address]cbshiqd[address] [address]Dr.Veena HernándezNEUT #7.1 103/ulCritically high1.4-6.5 The [facility] HospitalComment on above:Performed By: #### CBC ####[facility] Yi[address]lbmdjw[address] [address]Dr.Veena Hernández Neutrophils/100 WBC (Bld)90.5 %Critically high43.0-75.0[facility] Comment on above:Performed By: #### CBC ####[facility] Vwbiplksbb[address] [address]Dr.Veena HernándezPlatelet mean volume (Bld) [Entitic vol]9.8 fLNormal9.5-13.5The [facility] HospitalComment on above:Performed By: #### CBC ####[facility] Usgrqsjbdp790[address] [place], [place] [address]Dr.Veena HernándezPLT231 103/tsGvotpn637-101Oro [facility] HospitalComment on above:Performed By: #### CBC ####[facility] Zukdwiactm6965[address] [place], [place] [address]Dr.Veena HernándezRBC4.01 106/ulCritically low4.20-5.40The [facility] HospitalComment on above:Performed By: #### CBC ####[facility] Qwtrfwkqfv689[address] [place], [place] [address]Dr.Veena HernándezWBC7.8 103/ul Normal4.0-11.0The [facility] HospitalComment on above:Performed By: #### CBC ####[facility] Mmsmvvpjla2320[address] [place], [place] [address]Dr. Veena HernándezCovid-19 PCR (CVDTBH)on 98-26-6884NXFT-CoV-2 (COVID-19) RNA ROGER+probe Ql (Unsp spec)Not detectedNormalNOT DETECTEDThe [facility]edo HospitalComment on above:Result Comment: This test is not yet approved or cleared by the [place] FDA. When there are no FDA-approved or cleared tests available, and other criteria are met, FDA can make tests available under an emergency access mechanism called an Emergency Use Authorization (EUA). The EUA for this test is supported by the Scenario Writer of Health and Human Service's (HHS's) declaration [...] of clinical signs and symptoms consistent with SARS-CoV-2.Performed By: #### CVDTBH ####[facility] Izcokuccmi724[address] [place], [place] [address]Dr. Yilan ChangINFLUENZA A AND B AGon 29-73-4878SKXIBTDBMMHUTOur Lady of Mercy Hospital - AndersonComment on above:Result Comment: Negative for Flu A protein angiten. Infection due to Flu A cannot be ruled out. FluA angiten in the sample may be below the detection limit of the test.Performed By: #### INFLUAB ####[facility] Josqsrrhew9225[address] [place], [place] [address]Dr. Yilan ChangINFLUBNEGHSEE [facility] CampusComkarmanos cancer center on above:Result Comment: Negative for Flu B protein antigen. Infection due to Flu B cannot be ruled out. FluB antigen in the sample may be below the detection limit of the test.Performed By: #### INFLUAB ####[facility] Sbcwlgcjta022[address] [place], [place] [address]Dr. Yilan ChangINFLUENZA A AGNegativeNormalNEGATIVE SEE COMMENTSt. Mary'S Medical Center Comment on above:Performed By: #### INFLUAB ####[facility] Fgimfxngnd355[address] [place], [place] [address]Dr. Yilan ChangINFLUENZA B AGNegativeNormal NEGATIVE SEE COMMENTSt. Mary'S Medical CenterComment on above:Performed By: #### INFLUAB ####[facility] Qbkalozhic2960[address] [place], [place] [address]Dr. Yilan ChangLACTATE/LACTIC ACIDon 45-04-2208Tvwoezr [Moles/Vol]0.7 mmol/LNormal0.4-2.0The [facility] HospitalComment on above:Performed By: #### LACT ####[facility] S[address]vdepfxw[address] [address]Dr. Yilan ChangLIPASEon 47-85-9776Xlgbye [Catalytic activity/Vol]309.0 U/LNormal 73.0-393.0The [facility] HospitalComment on above:Performed By: #### LIPA, HSTROPN, CMP ####[facility] D[address]cnhtkg[address] [address]Dr. Yilan ChangPROF 14(COMP METB)on 24-76-1847Rircgtz [Mass/Vol]3.7 g/dL Normal3.4-5.0The [facility] HospitalComment on above:Performed By: #### LIPA, HSTROPN, CMP ####[facility] Msmkkixjyx[address] [address]Dr. Valelan ChangAlbumin/Globulin [Mass ratio]1.2 {ratio}NormalThe [facility]edo HospitalComment on above:Performed By: #### LIPA, HSTROPN, CMP ####[facility] Javskbiwjv[address] [address]Dr. Yilan ChangALP [Catalytic activity/Vol]85 U/EJwugxq05-714Aai [facility] HospitalComment on above: Performed By: #### LIPA, HSTROPN, CMP ####[facility] Pnxbbhnseo[address] [address]Dr. Yilan ChangALT [Catalytic activity/Vol]15 U/L Raipqy38-06Wug [facility] HospitalComment on above:Performed By: #### LIPA, HSTROPN, CMP ####[facility] Efgxfjujla[address] [address]Dr. Valelan ChangAnion gap [Moles/Vol]11.2 mmol/LNormalThe [facility] Comment on above:Performed By: #### LIPA, HSTROPN, CMP ####[facility] G[address]zxybsoup[address] [address]Dr. Yilan ChangAST [Catalytic activity/Vol]15 U/XWrxueo27-27Vpm [facility] HospitalComment on above:Performed By: #### LIPWILLIAM CartagenaTROPN, CMP ####[facility] Ysqcutrdtr[address] [address]Dr. Yilan ChangBilirubin [Mass/Vol]0.9 mg/dLNormal 0.2-1.0The [facility] HospitalComment on above:Performed By: #### LIPMitzi HSTROPN, CMP ####[facility] Bauehufmar[address] [place], [place] [address]Dr. Yilan ChangCalcium [Mass/Vol]8.7 mg/dLNormal8.5-10.1[facility] Comment on above:Performed By: #### LIPMitzi HSTROPN, CMP ####[facility] Nelyhvbuld325[address] [place], [place] [address]Dr. Yilan ChangChloride [Moles/Vol]104 mmol/FDqpmne12-419Grf [facility] HospitalComment on above:Performed By: #### LIPMitzi HSTROPN, CMP ####[facility] Auibrkrrmh58[address] [place], [place] [address]Dr. Yilan ChangCO2 [Moles/Vol]27.8 mmol/LNormal 21.0-32.0The [facility] HospitalComment on above:Performed By: #### LIPMitzi HSTROPN, CMP ####[facility] Lbblgslzma[address] [place], [place] [address]Dr. Yilan ChangCreatinine [Mass/Vol]0.77 mg/dLNormal0.55-1.02The [facility] HospitalComment on above:Performed By: #### LIPMizti HSTROPN, CMP ####[facility] Fqaigttwsn8427[address] [place], [place] [address]Dr. Yilan ChangEGFR- AF ITALIAN>60Normal>=60The [facility] HospitalComment on above:Performed By: #### LIPA HSTROPN, CMP ####[facility] [address]zfvz[address] [address]Dr. Yilan ChangEGFR-NON AF ITALIAN>60Normal>=60The [facility] HospitalComment on above:Performed By: #### JOSE HSTROPN, CMP ####[facility] Wroyvgxvkc[address] [address]Dr. Yilan ChangGlobulin (S) [Mass/Vol]3.2 g/dLNormalThe [facility] HospitalComment on above:Performed By: #### LIPMitzi HSTROPN, CMP ####[facility] Rbsedberco[address] [address]Dr. Yilan ChangGlucose [Mass/Vol]121 mg/dL Critically xaku34-022Ybe [facility] HospitalComment on above:Performed By: #### LIPMitzi HSTROPN, CMP ####[facility] Idmjacsqsy[address] [address]Dr. Yilan ChangPotassium [Moles/Vol]4.0 mmol/LNormal 3.5-5.1The [facility] HospitalComment on above:Performed By: #### LIPMitzi HSTROPN, CMP ####[facility] Xentsekimb[address] [address]Dr. Yilan ChangProtein [Mass/Vol]6.9 g/dLNormal6.4-8.2The [facility] HospitalComment on above:Performed By: #### LIPMitzi HSTROPN, CMP ####[facility] Xfxjfkzzon457[address] [place], [place] [address]Dr. Yilan ChangSodium [Moles/Vol]139 mmol/CThegut440-715Igu [facility] HospitalComment on above: Performed By: #### LIPMitzi HSTROPN, CMP ####[facility] Lwqdutircf7[address] [place], [place] [address]Dr. Yilan ChangUrea nitrogen [Mass/Vol]19.0 mg/dL Critically high7.0-18.0The [facility] HospitalComment on above:Performed By: #### LIPA HSTROPN, CMP ####[facility] Ysdlqibhmm[address] [place], [place] [address]Dr. Veena HernándezUrea nitrogen/Creatinine [Mass ratio] 24.7 mg/mgNoOhioHealth Doctors HospitalComment on above:Performed By: #### LIPMitzi HSTROPN, CMP ####[facility] Rierpgwmza[address] [address]Dr. Veena HernándezSYMPTOMATIC COVID-19 ANTIGENon 17-09-1150GIR StatementSEE BELOWKettering HealthComkarmanos cancer center on above:Result Comment: This test has not been FDA [...] declaration is terminated or authorization is revoked sooner.Performed By: #### CVDAGS ####[facility] Valnobbrno88[address] [place], [place] [address]Dr. Veena HernándezHlxruXGDQ-BoN-9 (COVID-19) RNA ROGER+probe Ql (Unsp spec)NegativeNormalNEGATIVEThe [facility] on above:Performed By: #### CVDAGS ####[facility] Rulmdgaavs740[address] [place], [place] [address]Dr. Veena HernándezTROPONIN, HIGH SENSITIVITYon 12-20-2022 HSTROP<4.1Kbqgqi7.0-51.3The [facility] on above:Result Comment: CUT-OFF POINTS HAVE BEEN ESTABLISHED BASED ON THE FOURTH UNIVERSAL DEFINITIONS OF MYOCARDIAL INFARCTION. THE UPPER REFERENCE LIMIT (URL) OF TROPONIN, DEFINED THE 99TH PERCENTILE OF cTnI DISTRIBUTION IN A REFERENCE POPULATION, HAS BEEN CONFIRMED THE DECISION THRESHOLD FOR [place] DIAGNOSIS.Performed By: #### LIPA, HSTROPN, CMP ####[facility] Udtdeublun[address] [place], [place] [address]BhLindsey HernándezXR CSPINE 2_3 VIEWSon 73-87-7320XA CSPINE 2_3 VIEWSEXAMINATION: XR CSPINE 2_3 VIEWS HISTORY: Neck pain [...] Stable surgical changes. Electronically authenticated by: ALEX SIGALA Date: 2022-09-05 17:[address] [place], [place] [address]ECHOCARDIO M/2D COMPLETEon 37-33-1803SETRRSZWRC M/2D COMPLETE Patient: KEVON CAMPOS Exam Date: 08/29/2022 : 1950 Gender:F Ordering : NEIDA TARIQ [facility] Admission #: [id number] Family : Order #: [id number] CLICK HERE TO VIEW EXAM ECHOCARDIOGRAM REPORT [...] by: Myles Haney M.D. on 08/30/2022 at 12:57[facility] STRESS/REST MULTIon 07-02-5049[place] STRESS/REST MULTIPatient: KEVON CAMPOS Exam Date: 08/29/2022 : 1950 Gender:F Ordering : NEIDA EVELYNMitzi HERNANDEZCHANDAN [facility] Admission #: [id number] Family : Order #: [id number] CLICK HERE TO VIEW EXAM RADIOLOGY REPORT [...] medicine myocardial perfusion scan. Dictated by: Alex Sigala M.D. on 08/29/2022 at 15:43 Approved by: Alex Sigala M.D. on 08/29/2022 at 15:58[facility] HealthBN[facility] 49-46-9782Hnrlkeyauox peptide B (Bld) [Mass/Vol]41.0 pg/mLNormal <=900.0The [facility] HospitalComment on above:Performed By: #### CK, CKMB, REINALDO, CMP, BNP, HSTROPN #### [facility] [address] [address] [address] Veena RiveraC AUTO DIFFon [id number] #0.0 103/ulNormal0.0-0.1The [facility] HospitalComment on above:Performed By: #### CBC ####[facility] Exglohekil[address] [place] [address]Dr.Veena HernándezBasophils/100 WBC (Bld)0.8 %Normal0.2-2.0The [facility] Shawment on above:Performed By: #### CBC ####[facility] Ywcblclcbg54[address] [place], [place] [address]Dr.Veena ChangEO #0.1 103/ulNormal0.0-0.7The [facility] HospitalComment on above:Performed By: #### CBC ####[facility] Gqlkkifmxb274[address] [place], [place] [address]DrCristin ChangEosinophils/100 WBC (Bld)1.3 %Normal 0.9-7.0The [facility] Shawment on above:Performed By: #### CBC ####[facility] Xincwztrqc688[address] [place], [place] [address]DrCristin Hernández Erythrocyte distribution width (RBC) [Ratio]13.3 %Qktvna13.0-15.0The [facility] HospitalComment on above:Performed By: #### CBC ####[facility] Ltotgifasy085[address] [place], [place] [address]DrCristin HernándezHematocrit (Bld) [Volume fraction]39.3 %Zunpuv75.0-48.0The [facility] HospitalComment on above:Performed By: #### CBC ####[facility] Aspqmhyfde989[address] [place], [place] [address]Dr.Veena HernándezHemoglobin (Bld) [Mass/Vol]12.9 g/dL Iejgnv91.0-16.0The [facility] HospitalComment on above:Performed By: #### CBC ####[facility] Kgrncqjdtb464[address] [place], [place] [address]DrLindsey HernándezIG #0.00 10e3/ulNormal0.00-0.03The [facility] HospitalComment on above: Performed By: #### CBC ####[facility] Tjzlirxyvn619[address] [place], [place] [address]Dr.Veena HernándezIG %0.0 %Normal0.0-0.5The [facility] HospitalComment on above:Performed By: #### CBC ####[facility] Yyapsfippw9259[address] [place], [place] [address]Dr.Veena ShannonH #1.8 103/ulNormal1.2-3.8The [facility] HospitalComment on above:Performed By: #### CBC ####[facility] Nwophvgjns362[address] [place], [place] [address]Dr. Veena Shannonhocytes/100 WBC (Bld)34.3 %Wzpivz39.5-60.0The [facility] Comment on above:Performed By: #### CBC ####[facility] Xwstupwoxq5[address] [place], [place] [address]Dr.Veena HernándezMANUAL DIFF REQNONormalThe [facility] HospitalComment on above:Performed By: #### CBC ####[facility] Konryotapn201[address] [place], [place] [address]Dr.Veena HernándezADIRONDACK REG[facility] (RBC) [Entitic mass]31.1 awScwyxa39.7-34.0The [facility] HospitalComment on above: Performed By: #### CBC ####[facility] Hnusbjqrzk844[address] [place], [place] [address]Dr.Veena HernándezST. LAWR[facility] (RBC) [Mass/Vol]32.8 g/dLNormal 29.9-35.2The [facility] HospitalComment on above:Performed By: #### CBC ####[facility] Qhzquyimlk94[address] [place], [place] [address]Dr. Veena HernándezMCV (RBC) [Entitic vol]94.7 tYHvzqdr35.0-99.0The [facility] Comment on above:Performed By: #### CBC ####[facility] Hibslfvovi[address] [place], [place] [address]Dr.Veena TyeO #0.3 103/ulNormal0.3-0.8 The [facility] HospitalComment on above:Performed By: #### CBC ####[facility] Konfpcwjep[address] [place], [place] [address]DrCristin Hernández Monocytes/100 WBC (Bld)6.1 %Normal1.7-12.0The [facility] HospitalComment on above: Performed By: #### CBC ####[facility] Egivddpkvy8948[address] [place], [place] [address]Dr.Veena HernándezNEUT #3.0 103/ulNormal1.4-6.5The [facility] HospitalComment on above:Performed By: #### CBC ####[facility] Wtnuxzegag79[address] [place], [place] [address]Dr.Veena HernándezNeutrophils/100 WBC (Bld)57.5 %Skmkbf94.0-75.0The [facility] HospitalComment on above:Performed By: #### CBC ####[facility] Eeovthpoyt313[address] [place], [place] [address]Dr.eVena HernándezPlatelet mean volume (Bld) [Entitic vol]9.8 fLNormal9.5-13.5 The [facility] HospitalComment on above:Performed By: #### CBC ####[facility] Cpappkpitf76[address] [place], [place] [address]Dr.Veena HernándezPLT227 103/rqPtutah129-187Ihh [facility] HospitalComment on above:Performed By: #### CBC ####[facility] Bywxghhqku938[address] [place], [place] [address]DrLindsey HernándezRBC4.15 106/ulCritically low4.20-5.40The [facility] HospitalComment on above:Performed By: #### CBC ####[facility] Aaxemrormu[address] [place], [place] [address]Dr.Yilan HernándezWBC5.3 103/ulNormal4.0-11.0The [facility] HospitalComment on above:Performed By: #### CBC ####[facility] Iffpqpomsj[address] [address]Dr.Yilan DiazMBdeangelo 79-36-7022VJ.MB [Mass/Vol]0.90 ng/mLNormal<=3.60The [facility] HospitalComment on above:Performed By: #### CK, CKMB, REINALDO, CMP, BNP, HSTROPN #### [facility] [address] [address] [address] Veena Hua 30-50-1663QF [Catalytic activity/Vol]66 U/UDrpgrk21-271Cmo [facility] HospitalComment on above:Performed By: #### CK, CKMB, REINALDO, CMP, BNP, HSTROPN #### [facility] [address] [place] [address] Dr. Veena GarciaOGLOBINon 16-11-1102QRX80 ng/mLNormal9-82The [facility] Comment on above:Performed By: #### CK, CKMB, REINALDO, CMP, BNP, HSTROPN ####[facility] Ettoajdmhy[address] [address]Dr. Veena HernándezPROF 14(COMP METB)on 77-81-1137Erimksk [Mass/Vol]4.0 g/dLNormal 3.4-5.0The [facility] HospitalComment on above:Performed By: #### CK, CKMB, REINALDO, CMP, BNP, HSTROPN #### [facility] [address] [address] [address] Veena HernnádezAlbumin/Globulin [Mass ratio]1.3 {ratio}NormalThe [facility] Shawment on above:Performed By: #### CK, CKMB, REINALDO, CMP, BNP, HSTROPN #### [facility] [address] [place] [address] Dr. Veena WashingtonP [Catalytic activity/Vol]69 U/XVazvwi39-882Dxz [facility] HospitalComment on above:Performed By: #### CK, CKMB, REINALDO, CMP, BNP, HSTROPN #### [facility] [address] [place] [address] Dr. Veena Hayes [Catalytic activity/Vol]15 U/KEjtzfj78-48Pcm [facility] HospitalComment on above:Performed By: #### CK, CKMB, REINALDO, CMP, BNP, HSTROPN #### [facility] [address] [place] [address] Dr. Veena Matt gap [Moles/Vol]7.4 mmol/LNormalThe [facility] HospitalComment on above:Performed By: #### CK, CKMB, REINALDO, CMP, BNP, HSTROPN #### [facility] [address] [place] [address] Dr. Veena Zhang [Catalytic activity/Vol]14 U/LCritically kix61-58Jhj [facility] HospitalComment on above:Performed By: #### CK, CKMB, REINALDO, CMP, BNP, HSTROPN #### [facility] [address] [place] [address] Dr. Veena HernándezBilirubin [Mass/Vol]1.9 mg/dLCritically high0.2-1.0The [facility] HospitalComment on above:Performed By: #### CK, CKMB, REINALDO, CMP, BNP, HSTROPN #### [facility] [address] [place] [address] Dr. Veena HernándezCalcium [Mass/Vol]9.4 mg/dLNormal8.5-10.1The [facility] Comment on above:Performed By: #### CK, CKMB, REINALDO, CMP, BNP, HSTROPN #### [facility] [address] [place] [address] Dr. Veena HernándezChloride [Moles/Vol]106 mmol/XQnrfwq93-041Hkl [facility] Comment on above:Performed By: #### CK, CKMB, REINALDO, CMP, BNP, HSTROPN #### [facility] [address] [place] [address] Dr. Veena HernándezCO2 [Moles/Vol]32.3 mmol/LCritically high21.0-32.0The [facility] HospitalComment on above:Performed By: #### CK, CKMB, REINALDO, CMP, BNP, HSTROPN #### [facility] [address] [address] [address] Veena HernándezCreatinine [Mass/Vol]0.80 mg/dLNormal0.55-1.02The [facility] HospitalComment on above:Performed By: #### CK, CKMB, REINALDO, CMP, BNP, HSTROPN #### [facility] [address] [place] [address] Dr. Curiel ChangEGFR-AF ITALIAN>60Normal>=60The [facility] HospitalComment on above:Performed By: #### CK, CKMB, REINALDO, CMP, BNP, HSTROPN #### [facility] [address] [place] [address] Dr. Veena KaurGFR-NON AF ITALIAN>60Normal>=60The [facility] HospitalComment on above:Performed By: #### CK, CKMB, REINALDO, CMP, BNP, HSTROPN #### [facility] [address] [place] [address] Dr. Veena HernándezGlobulin (S) [Mass/Vol]3.2 g/dLNormalThe [facility] HospitalComment on above:Performed By: #### CK, CKMB, REINALDO, CMP, BNP, HSTROPN #### [facility] [address] [address] [address] Veena HernándezGlucose [Mass/Vol]98 mg/jSFzbhfr43-430UliSt. Mary'S Medical Center Comment on above:Performed By: #### CK, CKMB, REINALDO, CMP, BNP, HSTROPN #### [facility] [address] [place] [address] Dr. Veena HernándezPotassium [Moles/Vol]3.7 mmol/LNormal3.5-5.1The [facility] Comment on above:Performed By: #### CK, CKMB, REINALDO, CMP, BNP, HSTROPN #### [facility] [address] [address] [address] Veena HernándezProtein [Mass/Vol]7.2 g/dLNormal6.4-8.2The [facility] Comment on above:Performed By: #### CK, CKMB, REINALDO, CMP, BNP, HSTROPN #### [facility] [address] [address] [address] Veena HernándezSodium [Moles/Vol]142 mmol/JHkfpsi862-679Euf [facility] Comment on above:Performed By: #### CK, CKMB, REINALDO, CMP, BNP, HSTROPN #### [facility] [address] [place] [address] Dr. Veena HernándezUrea nitrogen [Mass/Vol]11.0 mg/dLNormal7.0-18.0The [facility] HospitalComment on above:Performed By: #### CK, CKMB, REINALDO, CMP, BNP, HSTROPN #### [facility] [address] [place] [address] Dr. Veena English nitrogen/Creatinine [Mass ratio]13.8 mg/mgNormalThe [facility] HospitalComment on above:Performed By: #### CK, CKMB, REINALDO, CMP, BNP, HSTROPN #### [facility] [address] [place] [address] Dr. Veena Henriquez, HIGH SENSITIVITYon 13-49-9550AEJWOW3.0 pg/mLNormal 4.0-51.3The [facility] HospitalComment on above:Result Comment: CUT-OFF POINTS HAVE BEEN ESTABLISHED BASED ON THE FOURTH UNIVERSAL DEFINITIONS OF MYOCARDIAL INFARCTION. THE UPPER REFERENCE LIMIT (URL) OF TROPONIN, DEFINED THE 99TH PERCENTILE OF cTnI DISTRIBUTION IN A REFERENCE POPULATION, HAS BEEN CONFIRMED THE DECISION THRESHOLD FOR [place] DIAGNOSIS.Performed By: #### CK, CKMB, REINALDO, CMP, BNP, HSTROPN #### [facility] [address] [place] [address] Dr. Veena HernándezXR CHEST 2 Von 29-30-9466AQ CHEST 2 VEXAMINATION: XR CHEST 2 V HISTORY: Chest pain COMPARISON: No [...] if clinically indicated. Electronically authenticated by: ALEX SIGALA Date: 2022-08-01 10:19[facility] LSPINE 2_3 VIEWSon [id number] LSPINE 2_3 VIEWSEXAMINATION: XR LSPINE 2_3 VIEWS HISTORY: Unspecified fall COMPARISON: No relevant comparison available. FINDINGS: BONES: No acute fracture or spondylolisthesis. Mild spondylosis. Moderate to severe facet osteoarthropathy DISC SPACES: Moderate to severe multilevel disc space narrowing. Interbody spacers L3-4 and L4-L5 PARASPINOUS: Negative. No paraspinous abnormality is seen. OTHER: Negative. IMPRESSION: Degenerative changes Electronically authenticated by: CARLOS CHAVIRA Date: 2022-07-12 19:26[facility] HIP RT INJon [id number] HIP RT INJEXAMINATION: XR HIP RT INJ HISTORY: Arthritis of [...] of patient's pain. Electronically authenticated by: ALEX SIGALA Date: 2022-04-03 09:18[facility] Vital Signs Date TimeVital SignValuePerforming WogfhdufaGdlbwune52-74-2523 12:02-0400Body .4 Pietro Fisher MD Work Phone: 1(128)[address] [place], [place] 7039110-14-2025 12:02-0400 Body mass index (BMI) [Ratio]32.8 kg/u7ArpcvjShaikh Natalia FELIX Work Phone: 1(193)[address] [place], [place] 7039110-14-2025 12:02-0400 Body wqpxzxijzwo48.4 [degF]Shaikh Natalia FELIX Work Phone: 1(423)[address] [place], [place] 7039110-14-2025 12:02-0400 Body qwydjk01.2 kgShaikh Natalia FELIX Work Phone: 1(447)[address] [place], [place] 7039110-14-2025 12:02-0400 Diastolic blood scijrhma47 mm[Hg]Shaikh Natalia FELIX Work Phone: 1(862)[address] [place], [place] 7039[address]-14-2025 12:02-0400 Heart rate68 /Lacey Fisher MD Work Phone: 1(907)[address] [place], [place] 7039[address]-14-2025 12:02-0400 Respiratory rate18 /Lacey Fisher MD Work Phone: 1(391)[address] [place], [place] 7039110-14-2025 12:02-0400 SaO2% (BldA) [Mass fraction]98 %Shaikh Natalia FELIX Work Phone: 1(505)[address] [place], [place] 7039110-14-2025 12:02-0400 Systolic blood ebzqhkci229 mm[Hg]Shaikh Natalia FELIX Work Phone: 1(988)[address]09-15-2025 09:51-0400 Body wqjkro005.4 Pietro Fisher MD Work Phone: 1(083)[address] [place], [place] 7039[address]-15-2025 09:51-0400 Body mass index (BMI) [Ratio]32.8 kg/c2NvgchbShaikh Natalia FELIX Work Phone: 1(584)[address] [place], [place] 7039109-15-2025 09:51-0400 Body orthqracfrm69.5 [degF]Shaikh Natalia FELIX Work Phone: 1(204)[address] [place], [place] 7039[address]-15-2025 09:51-0400 Body urirjs29.26 kgShaikh Natalia FELIX Work Phone: 1(166)[address] [place], [place] 7039[address]-15-2025 09:51-0400 Diastolic blood rvlykkeb08 mm[Hg]Shaikh Natalia FELIX Work Phone: 1(738)[address] [place], [place] 70[address]-15-2025 09:51-0400 Heart rate66 /Lacey Fisher MD Work Phone: 1(221)[address] [place], [place] 7039109-15-2025 09:51-0400 Respiratory rate18 /Lacey Fisher MD Work Phone: 1(083)[address] [place], [place] 7039109-15-2025 09:51-0400 SaO2% (BldA) [Mass fraction]98 %Shaikh Natalia FELIX Work Phone: 1(301)[address] [place], [place] 7039109-15-2025 09:51-0400 Systolic blood mm[Hg]Shaikh Natalia FELIX Work Phone: 1(346)[address] [place], [place] 7039[address]-04-2025 11:16-0400 Body ezsggl517.9 cmDave Vee DPM Work Phone: [facility] HospitalMeqnzjymla54-91-1381 11:16-0400Body mass index (BMI) [Ratio]30.8 kg/x5YxiewrldDave Vee DPM Work Phone: [facility] HospitalGgftdlsuuw90-01-5880 11:16-0400Body atckja25.94 kgMattyelva Vee DPM Work Phone: [facility] HospitalDggydvapng65-26-0937 11:16-0400Respiratory rate16 /minDave Cristóbal DPM Work Phone: [facility] HospitalMhrohkcqxv46-86-2038 09:36-0400Body kikozs116.4 Pietro Fisher MD Work Phone: 1(563)[address]08-30-2025 09:36-0400 Body mass index (BMI) [Ratio]32.6 kg/f4SxamklShaikh Natalia FELIX Work Phone: 1(605)[address] [place], [place] 9895308-30-2025 09:36-0400 Body .5 [degF]Shaikh Natalia FELIX Work Phone: 1(449)[address]08-30-2025 09:36-0400 Body .86 kgShaikh Natalia FELIX Work Phone: 1(578)[address]08-30-2025 09:36-0400 Diastolic blood rrvkyymj32 mm[Hg]Shaikh Natalia FELIX Work Phone: 1(392)[address]08-30-2025 09:36-0400 Heart rate84 /Lacey Fisher MD Work Phone: 1(487)568-[address] [place], [place] 3631708-30-2025 09:36-0400 Respiratory rate18 /Lacey Fisher MD Work Phone: 1(806)[address]08-30-2025 09:36-0400 SaO2% (BldA) [Mass fraction]95 %Shaikh Natalia FELIX Work Phone: 1(154)[address]08-30-2025 09:36-0400 Systolic blood zeerawox410 mm[Hg]Shaikh Natalia FELIX Work Phone: 1(970)[address]06-26-2025 11:18-0400 Body valjvp980.9 cmMattyelva Vee DPM Work Phone: [facility] HospitalUrgpfpwuif24-99-8151 11:18-0400Body mass index (BMI) [Ratio]30.8 kg/m0KjsxinpuDave Vee DPM Work Phone: [facility] HospitalUxsuqlsiov86-27-6378 11:18-0400Body lperdj70.94 kgRiddhiabdoul Vee DPM Work Phone: [facility] HospitalXkulqapsjv57-70-9984 11:18-0400Respiratory rate18 /minDave Vee DPM Work Phone: [facility] HospitalWiyocxhvgk28-81-0178 09:39-0400Body mass index (BMI) [Ratio]30.91 kg/m2Evelyn Tariq PROSTHETICS TECHNICIAN Work Phone: [facility] HospitalKmsfufddjv59-04-5193 09:39-0400Body temperature 98.6 [degF]Evelyn Tariq PROSTHETICS TECHNICIAN Work Phone: [facility] HospitalYrikolrdtb89-42-5020 09:39-0400Body pdaizh95.21 kgEvelyn Tariq PROSTHETICS TECHNICIAN Work Phone: [facility] HospitalIgrkrwuogk05-30-2728 09:39-0400Diastolic blood ezmmseej74 mm[Hg]Evelyn Chandni PROSTHETICS TECHNICIAN Work Phone: [facility] HospitalJthcsvlpbf77-87-6753 09:39-0400Heart rate78 /min Evelyn Chandni PROSTHETICS TECHNICIAN Work Phone: [facility] HospitalPdqzflchjh17-36-4015 09:39-0400Respiratory rate18 /minLisa Loreez PROSTHETICS TECHNICIAN Work Phone: [facility] HospitalStnvzqumfr16-79-2169 09:39-9959ThP7% (BldA) [Mass fraction]97 %Evelynmitzi Tariq PROSTHETICS TECHNICIAN Work Phone: [facility] HospitalCpmuarfyef58-24-4990 09:39-0400Systolic blood owcxmksu864 mm[Hg]Evelyn Aichholz PROSTHETICS TECHNICIAN Work Phone: [facility] HospitalNsscwaxcds21-79-3889 11:53-0400Body njrkcu057.9 cmDave Vee DPM Work Phone: [facility] HospitalYyimfdknjr79-34-1432 11:53-0400Body mass index (BMI) [Ratio]27.4 kg/h4FxtfjjcyDave Vee DPM Work Phone: [facility] HospitalJfbuwjyrth45-16-8660 11:53-0400Body xjpvut75.77 kgDave Vee DPM Work Phone: [facility] HospitalWsyxkmcjxu13-88-6711 11:53-0400Respiratory rate18 /minDave Vee DPM Work Phone: [facility] HospitalTzrbswznxf27-62-1383 09:52-0500Body .9 cmBrkevinany Urbano PROSTHETICS TECHNICIAN Work Phone: [facility] HospitalTwpebagspk13-08-1988 09:52-0500Body mass index (BMI) [Ratio]27.21 kg/y3Wgxifewc Urbano PROSTHETICS TECHNICIAN Work Phone: [facility] HospitalSojbhyesgb39-72-6697 09:52-0500Body temperature 97.2 [degF]Dominique Urbano PROSTHETICS TECHNICIAN Work Phone: [facility] HospitalMenxewecgp82-15-8701 09:52-0500Body gqzwfo76.32 kgBrittany Urbano PROSTHETICS TECHNICIAN Work Phone: [facility] HospitalOwrptdjrjg15-20-2351 09:52-0500Diastolic blood zguftfyu83 mm[Hg]Dominique Urbano PROSTHETICS TECHNICIAN Work Phone: [facility] HospitalNehquawnii82-82-9947 09:52-0500Heart rate80 /min Dominique Urbano PROSTHETICS TECHNICIAN Work Phone: [facility] HospitalLwhckfrrwk26-84-0303 09:52-0500Respiratory rate16 /minBrittany Urbano PROSTHETICS TECHNICIAN Work Phone: [facility] HospitalNlmsbmagry75-06-8570 09:52-8771JvE0% (BldA) [Mass fraction]98 %Dominique Yolie PROSTHETICS TECHNICIAN Work Phone: [facility] Ckzjpkdnmj91-71-5028 09:52-0500Systolic blood jkqomfuy506 mm[Hg]Dominique Yolie PROSTHETICS TECHNICIAN Work Phone: [facility] Encounters Encounter DateEncounter TypeCare ProviderFacilityStart: 06-29-2025 End: 54-19-8228hpcncsimpiXggdcd Fawwad MD Work Phone: [facility] Work Phone: Start: 06-29-2025 End: 22-19-3692Esdwoax encounter procedureEmily Mendoza ONLINE USER EXPERIENCE STRATEGIST-[facility] [place] Work Phone: Start: 05-31-2025 End: 96-08-2843qffccfbbhbRygepn Fawwad MD Work Phone: [facility] Work Phone: Start: 05-31-2025 End: 46-95-2714Gkkwnbz encounter procedureEvelyn Tariq --[facility] [place] Work Phone: Start: 08-66-1477Ysciihr encounter procedureSisiah Fisher MD Work Phone: [facility] 05-20-2025 End: 43-47-9538Akqzcm flowsAzeb Vee DPM Work Phone: [facility] CI PODIATRYStart: 05-20-2025 End: 23-69-5106Owmxuh flowsAzeb Vee DPM Work Phone: [facility] CI PODIATRYStart: 05-20-2025 End: 94-71-7438Xwvulv outpatient visit 15 minutesDave Vee DPM Work Phone: [facility] CI PODIATRYComment on above:Acquired deformity of left toe (Primary Dx); Pain due to onychomycosis of toenails of both feet; Venous insufficiency; Acquired deformity of right toeStart: 05-20-2025 End: 62-21-4409gehyaqsxndSAAVBAPW A BROWNNot AvailableStart: 05-15-2025 End: 89-85-7429vmpmezhoolVhjabj Fawwad MD Work Phone: [facility] Work Phone: Start: 05-15-2025 End: 61-94-8799Pfqxngz encounter Verna Motley APRN-[facility] [place] Work Phone: Start: 03-24-2025 End: 15-89-8254KgcouoItrq Aichholz PROSTHETICS TECHNICIAN Work Phone: [facility] CWM FMComment on above:Mild intermittent asthma with status asthmaticus (HCC)Start: 03-11-2025 End: 09-68-9111Yegweb flowsAzeb Vee DPM Work Phone: [facility] CI PODIATRYStart: 03-11-2025 End: 08-02-0743Ilhbno flowsAzeb Vee DPM Work Phone: [facility] CI PODIATRYStart: 03-11-2025 End: 89-03-3724Etygsez encounter procedureDave Vee DPM Work Phone: [facility] CI PODIATRYComment on above:Pain due to onychomycosis of toenails of both feet (Primary Dx); Venous insufficiencyStart: 03-11-2025 End: 48-57-3424mzzvrlwqkaSHVBKEAJ A BROWNNot AvailableStart: 03-09-2025 End: 03-12-9221Ebniszrlw Result EncounterEvelyn Tariq PROSTHETICS TECHNICIAN Work Phone: [facility] External Department UnsolicitedStart: 03-09-2025 End: 98-96-2202Pbdxoqcps Result EncounterEvelyn Tariq PROSTHETICS TECHNICIAN Work Phone: [facility] External Department UnsolicitedStart: 02-25-2025 End: 67-20-7001Juviizvmr Result EncounterEvelyn Tariq PROSTHETICS TECHNICIAN Work Phone: [facility] External Department UnsolicitedStart: 02-25-2025 End: 91-18-2874Djasknkan Result EncounterEvelyn Tariq PROSTHETICS TECHNICIAN Work Phone: [facility] External Department UnsolicitedStart: 02-24-2025 End: 31-90-7517Dcfpnjn encounter procedureEvelyn Tariq PROSTHETICS TECHNICIAN Work Phone: [facility] CWM FMComment on above:Encounter for subsequent annual wellness visit (AWV) in Medicare patient (Primary Dx); 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); Primary hypertension (CMS/HCC); B12 deficiency; Hypothyroidism, unspecified type (CMS/HCC); Mixed hyperlipidemia (CMS/HCC); Screening mammogram, encounter for; Colon cancer screening declined; Dyslipidemia (CMS/HCC)Start: 02-24-2025 End: 60-98-6792AyyncjErjh Aichholz PROSTHETICS TECHNICIAN Work Phone: [facility] CWM FMComment on above:Mild intermittent asthma with status asthmaticus (CMS/HCC)Start: 02-03-2025 End: 47-25-5163VtilifMtfc Aichholz PROSTHETICS TECHNICIAN Work Phone: [facility] CWM FMComment on above:Mild intermittent asthma with status asthmaticus (CMS/HCC)Start: 01-04-2025 End: 37-11-1533CiglpfBrvn Aichholz PROSTHETICS TECHNICIAN Work Phone: [facility] CWM FMComment on above:Primary hypertension (CMS/HCC); Dyslipidemia (CMS/HCC); 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); Mild intermittent asthma with status asthmaticus (CMS/HCC)Start: 12-31-2024 End: 40-95-8225Cxhnsv Yvette Vee DPM Work Phone: [facility] CI PODIATRYStart: 12-31-2024 End: 72-13-5189Fywhbw flowsheetDave Vee DPM Work Phone: [facility] CI PODIATRYStart: 12-31-2024 End: 23-61-8113mxhyuakqfhWQQHCQCA Mitzi Malaika AvailableStart: 12-31-2024 End: 24-10-3023Cmmjnz outpatient new 30 minutesDave Vee DPM Work Phone: [facility] CI PODIATRYComment on above:Venous insufficiency (Primary Dx); Pain due to onychomycosis of toenails of both feetStart: 11-24-2024 End: 17-90-8691rekyyvivrbBFLI AICHHOLZNot AvailableStart: 11-05-2024 End: 73-23-0816VzexvnYejbkdfy Urbano PROSTHETICS TECHNICIAN Work Phone: [facility] CWM FMComment on above: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)Start: 10-12-2024 End: 37-86-7899Vexoqx flowsheetBrittany Urbano PROSTHETICS TECHNICIAN Work Phone: [facility] CWM FMStart: 10-12-2024 End: 02-69-8431Oqhzeq flowsheetBrittany Urbano PROSTHETICS TECHNICIAN Work Phone: NOCG CWM FMStart: 10-12-2024 End: 28-61-9462Yfeezo outpatient visit 15 minutesBrittany Urbano PROSTHETICS TECHNICIAN Work Phone: NONS CWM FMComment on above:COVID-19 (Primary Dx); Dyslipidemia (CMS/HCC); Primary hypertension (CMS/HCC)Start: 10-12-2024 End: 58-08-2298hdsqrnaszqTLUQLVBW FITZPATRICKNot AvailableStart: 09-29-2024 End: 25-19-5363Tciccb OnlyBrittany Urbano PROSTHETICS TECHNICIAN Work Phone: [facility] CWM FMComment on above: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) (Primary Dx) Start: 08-08-2024 End: 56-28-3035nakfixttgqRXUJSH S CRAMERProMedica Plainfield HospitalStart: 08-05-2024 End: 41-16-7774qjkfldhtwpXXZQJD S [facility]ENTERMERProNorwalk Memorial Hospitalca Plainfield HospitalStart: 07-23-2024 End: 11-94-3878rpmrngzujkZNMYLH S CRAMERProMedica Plainfield HospitalStart: 06-15-2024 End: 53-88-9323LnanbbFxvyuybpGiuseppe Urbano NP Work Phone: [facility] CWM FMComment on above:Primary hypertension (CMS/HCC)Start: 10-16-2023 End: 05-53-1657mclgrixnaoCJLVSBHC WILKINSONProMedica Tenino HospitalStart: 09-26-2023 End: 78-93-4245wazlqeploaBYCRWI J DANNERProVeterans Health Administration HospitalStart: 09-03-2023 End: 91-59-4499gzgkucqubeRV Shaikh Fawwad Work Phone: [facility] Work Phone: Start: 09-03-2023 End: 36-32-2950Zzvrnyf encounter procedureMD Shaikh Fisher Work Phone: [facility] [place] Work Phone: Start: 08-27-2023 End: 59-83-9927Odocpxjxg Result EncounterSisiah Fisher MD Work Phone: [facility] External Department UnsolicitedStart: 08-27-2023 End: 49-70-3345Hjobycytq Result EncounterSisiah Fisher MD Work Phone: [facility] External Department UnsolicitedStart: 12-20-2022 End: 62-31-6066dmvgxwhqicOY GEOFFREY MARKER .Facility:B7Awlkn: 10-16-2022 End: 85-23-2765xzanzvovtxEAKQLJ H FAWWADFacility:N8Jsfba: 09-16-2022 End: 51-85-5387nupegcdsnvJGAUOZ H FAWWADFacility:S5Etmhn: 09-06-2022 End: 54-61-1636jhcdsptiezHPZJLF H MELANIEDFacility:O2Ibtvc: 09-04-2022 End: 10-78-9038hzvwgmxsfgJD ALEX R JONATHANERFacility:D3Xrtsr: 08-29-2022 End: 70-51-3468fgnwplhmfoSIW EVELYN CHANDNIFacility:L2Vwfrv: 08-01-2022 End: 23-15-5025dejikzgifsILU EVELYN CHANDNIFacility:V9Aqals: 07-12-2022 End: 86-56-4879voqnjnmbigGDFBII H MELANIEDFacility:J1Txppy: 04-03-2022 End: 63-12-8506kgrxupxldlOT MIRELLA STEPANICFacility:H1 Procedures DateProcedureProcedure DetailPerforming ClinicianStart: 07-18-3920Yqdvm X-ray of right wristShaikh Natalia FELIX Work Phone: Start: 03-09-2025 End: 36-03-7641Exgzgwtjz mammography bi 2-view breast inc cadLisa Chandni PROSTHETICS TECHNICIAN Work Phone: Start: 76-18-3083TDQ UA (CLEAN/CATCH) MICROSCOPIC IF INDICATEAlesa Chandni PROSTHETICS TECHNICIAN Work Phone: Start: 26-27-1495ZJ TOMOSYNTHESIS SCREENING Teodoro Fisher MD Work Phone: Start: 39-01-8459AwjyaxosdjaBrdemzxi Fitzpatrick PROSTHETICS TECHNICIAN Work Phone: Plan of Treatment DateCare ActivityDetailAuthorStart: 43-74-1664Uyrhtloqo for malignant neoplasm of breastMammogramNOMS HealthcareStart: 03-01-2026 End: 44-98-0198Ohsupbv encounter zjrfiiwoq50/16/2026 10:30 AM EDT Office Visit [facility] [address] [place] [address] Evelyn Tariq NP [address] [place] [address] [facility]AGAN FMStart: 06-11-2026Medicare Annual Wellness (AWV) Medicare Annual Wellness (AWV)[facility] HealthcareStart: 74-53-3446Dvoonjgwr for malignant neoplasm of colonColorectal Cancer ScreeningNOMS HealthcareComment on above:Postponed from 1952 (Patient Refused)Start: 07-29-2025 End: 87-76-3175Wjbwvsw encounter ybyzphfmx93/13/2025 11:30 AM EST Procedure Visit [facility] [address] [facility] [address] [place] [address] Dave Vee DPM [address] [facility] [address] [place] [address] [facility] CI PODIATRYStart: 05-31-2025 End: 18-54-6855Jqanbsm encounter goscuknuo73/15/2025 9:40 AM EDT Office Visit [facility] [address] [place] [address] Evelyn Tariq, AJIT [address] [place] [address] KEITH PAGAN FMStart: 05-20-2025 End: 17-58-1291Rczvggd encounter procedureNOMS CI PODIATRYComment on above:Pain due to onychomycosis of toenails of both feet (Primary Dx); Venous insufficiencyStart: 47-94-8920Irqemeqiw vaccinationInfluenza Vaccine (#1) [facility] HealthcareStart: 03-11-2025 End: 96-50-5195Ldobala encounter procedureNOMS CI PODIATRYComment on above:Pain due to onychomycosis of toenails of both feet (Primary Dx); Venous insufficiencyStart: 02-24-2025 End: 53-03-9291BPX W Auto Differential panel - BloodCBC and differential Lab Routine 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 behavioral di sturbance (CMS/HCC) B12 deficiency Hypothyroidism, unspecified type (CMS/HCC) Expected: 02/24/2025 (Approximate), Expires: 02/24/2026[facility] Work Phone: Comment on above:Expected: 02/24/2025 (Approximate), Expires: 02/24/2026Start: 02-24-2025 End: 33-35-7928Mzhtiucwb (Vitamin B12) [Mass/volume] in Serum or PlasmaVitamin B12 Lab Routine 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) B12 deficiency Expected: 02/24/2025 (Approximate), Expires: 02/24/2026[facility] HealthcareComment on above:Expected: 02/24/2025 (Approximate), Expires: 02/24/2026Start: 02-24-2025 End: 53-28-4119Qycmbunyxbfsz metabolic 2000 panel - Serum or PlasmaComprehensive metabolic panel Lab Routine Primary hypertension (CMS/HCC) Mixed hyperlipidemia (CMS/HCC) Expected: 02/24/2025 (Approximate), Expires: 02/24/2026[facility] HealthcareComment on above:Expected: 02/24/2025 (Approximate), Expires: 02/24/2026Start: 02-24-2025 End: 07-31-8746Wyknz 1996 panel - Serum or PlasmaLipid panel Lab Routine Mixed hyperlipidemia (CMS/HCC) Expected: 02/24/2025 (Approximate), Expires:02/24/2026 [facility] HealthcareComment on above:Expected: 02/24/2025 (Approximate), Expires: 02/24/2026Start: 02-24-2025 End: 65-87-7898PK Breast - bilateral ScreeningBilateral screening mammogram Imaging Routine Screening mammogram, encounter for Expected: 02/24/2025 (Approximate), Expires: 04/26/2026[facility] HealthcareComment on above:Expected: 02/24/2025 (Approximate), Expires: 04/26/2026Start: 02-24-2025 End: 53-28-3785Hxurdxhaljwr/Creatinine panel in random UrineMicroalbumin / creatinine, urine ratio Lab Routine Primary hypertension (CMS/HCC) Expected: 02/24/2025 (Approximate), Expires: 02/24/2026[facility] HealthcareComment on above: Expected: 02/24/2025 (Approximate), Expires: 02/24/2026Start: 02-24-2025 End: 58-20-4318Gvoflzbsgtn [Units/volume] in Serum or PlasmaTSH Lab Routine Hypothyroidism, unspecified type (CMS/HCC) Expected: 02/24/2025 (Approximate), Expires: 02/24/2026[facility] HealthcareComment on above:Expected: 02/24/2025 (Approximate), Expires: 02/24/2026Start: 02-24-2025 End: 42-43-7329Padsuhehp (T4) free [Mass/volume] in Serum or PlasmaT4, free Lab Routine Hypothyroidism, unspecified type (CMS/HCC) Expected: 02/24/2025 (Approximate),Expires: 02/24/2026[facility] HealthcareComment on above:Expected: 02/24/2025 (Approximate), Expires: 02/24/2026Start: 02-24-2025 End: 63-21-8662Eheoscwwcm complete panel - UrineUrinalysis with reflex microscopic (clean catch) Lab Routine Primary hypertension ([facility]) Expected: 02/24/2025 (Approximate), Expires: 02/24/2026[facility] HealthcareComment on above: Expected: 02/24/2025 (Approximate), Expires: 02/24/2026Start: 02-24-2025 End: 43-73-3471Teqgfvw encounter /11/2025 10:00 AM EDT Office Visit [facility] [address] [place] [address] Evelyn Tariq NP [address] [place] [address] [facility] CW FMStart: 04-22-2025Medicare Annual Wellness (AWV) Medicare Annual Wellness (AWV)[facility] HealthcareStart: 12-31-2024 End: 08-90-9051Ppnmuzr encounter /17/2025 11:30 AM EDT Office Visit [facility] [address] [place] [address] Dave Vee DPM [address] [facility] [address] [place] [address] [facility] CI PODIATRYStart: 11-24-2024 End: 88-27-6876Fsofezx encounter uybrwymug31/11/2025 9:20 AM EDT Office Visit [facility] [address] [place] [address] Evelyn Tariq NP [address] [place] [address] [facility] CWM FMStart: 11-16-2024 End: 29-30-6242Dklgrps encounter jyldrllmc73/03/2025 10:00 AM EST Office Visit [facility] [address] [place] [address] Dominique Urbano, PROSTHETICS TECHNICIAN [address] [place] [address] [facility] CWM FMStart: 10-12-2024 End: 11-86-9840Pemoage encounter cqusuuznv45/27/2025 10:00 AM EST Office Visit [facility] [address] [place] [address] Dominique Urbano, PROSTHETICS TECHNICIAN [address] [place] [address] ArrivedNOMS CWM FMComment on above:ArrivedStart: 08-27-2024 Screening for malignant neoplasm of breastMammogramNOMS HealthcareStart: 08-17-2024 End: 99-92-8746Oblcggy encounter kfozppqqz80/02/2024 10:30 AM EST Office Visit [facility] [address] [place] [address] Dominique Urbano, PROSTHETICS TECHNICIAN [address] [place] [address] [facility] FMStart: 05-30-2957Fgjbtkhbg vaccinationInfluenza Vaccine (#1)[facility] HealthcareStart: 91-90-2485Mepmnxhok for malignant neoplasm of colonNOMS HealthcareStart: 59-28-6115Hvlqxrkjlmoh Vaccine: 65+ Years (2 of 2 - PCV)Pneumococcal Vaccine: 65+ Years (2 of 2 - PCV)[facility] HealthcareStart: 52-86-3076Hzefjifnn for malignant neoplasm of colonNOMS HealthcareComprehensive metabolic 2000 panel - Serum or PlasmaSelect Medical Specialty Hospital - ColumbusXR Wrist - right GE 3 ViewsAdventHealth Zephyrhills Immunizations Immunization DateImmunizationNotesCare EmowcekhVhypjjio94-85-8915Qsaicbkpchwb Conjugate PCV 20Lisa Aichholz PROSTHETICS TECHNICIAN Work Phone: [facility] HospitalSmfcfiwnup93-16-6844sdxsjqh toxoid, reduced diphtheria toxoid, and acellular pertussis vaccine, adsorbedLisa Aichholz PROSTHETICS TECHNICIAN Work Phone: [facility] HospitalCjfolrdvzs09-24-2063xahrmz vaccine recombinant Evelyn Aichholz PROSTHETICS TECHNICIAN Work Phone: [facility] HospitalRbqdpqplph81-19-2490mekljwvzd, high dose seasonal, preservative-freeNicclaraas Cristóbal DPM Work Phone: [facility] HospitalLraacnnnez30-98-8703DHOI-UJM-0 (COVID-19) vaccine, mRNA, spike protein, LNP, PF, kristi-sucrose, 30 mcg/0.3 mLNicholas Cristóbal DPM Work Phone: [facility] HospitalGomnfbgoee04-17-2776wqudgnljk virus vaccine, unspecified formulationLisa Aichholz PROSTHETICS TECHNICIAN Work Phone: [facility] HospitalRgbjggjptn62-04-8723Vkrlxajaj, High-dose Seasonal, Quadrivalent, Preservative FreeDave Vee DPM Work Phone: noCitizens [facility] HealthcareDkbxrlgqnh79-61-1684qtbjjieiy virus vaccine, unspecified formulationDominique Barnestrick PROSTHETICS TECHNICIAN Work Phone: [facility]OC[facility] HealthcareOrsdkvtbfn63-31-7082dcmizn vaccine, liveBrittkey BarnesUrbano PROSTHETICS TECHNICIAN Work Phone: [facility]OC[facility] HealthcareXnkvnnqxui08-82-9090juemdacos, injectable, quadrivalent, contains preservativeDave Vee DPM Work Phone: noCitizens Memorial HealthcareWhsjbkkqfz30-80-8812weovqcvrdgcp polysaccharide vaccine, 23 valentDominique Urbano PROSTHETICS TECHNICIAN Work Phone: [facility] Payers DatePayer CategoryPayerPolicy [id number] [facility] [id number] 2023-Present [address] [place] [phone] 1.2.840.700732.1.13.693.2.7.3.842167.315 [id number] 2022 Medicare (Managed Care)1.2.840.507750.1.13.693.2.7.9.515432.717763. [id number] 2..840.1.535466.3.57[id number] 2.16.840.1.414522.3.579.2.00445-78-5461Ncbpfiw2051993 2.16.840.1.474837.3.579.2.95000-85-6560Rospejv1287669 2.16.840.1.073219.3.57[id number] 2.16.840.1.126490.3.579.2.36274-41-6093Hbpcgid0056550 2.16.840.1.220480.3.579.[id number] 2.16.840.1.283087.3.579.[id number] 2.16840.1.220865.3.57[id number] 2.840.1.776202.3.57[id number] 2.840.1.262853.3.579.2.910013-09-6145Tjcdenu13531211 2.840.1.439930.3.579.2.2[id number] 2.840.1.914021.3.579.2.8[id number] 2.840.1.917565.3.57[id number] 2.840.1.680457.3.579.[id number] 2.840.1.193918.3.57[id number] [id number] [id number] 2.0.1.971525.3.57[id number] 2.0.1.866184.3.57[id number] 2.0.1.183794.3.57[id number] 2.0.1.801136.3.57[id number]-[id number] 2.840.1.779207.3.579.2.531 Social History DateTypeDetailFacilityTobacco smoking status NHISUnknown if ever smokedVeterans Health Administration Work Phone: Start: [phone] [facility]art: 08-12-2023 End: 26-96-9282Mizrrzc smoking status NHISNever smoked tobaccoNOMS Healthcare Start: 08-12-2023 End: 57-07-4824Wxeqpvi use and exposureSmokeless tobacco non-userNOMS Healthcare Start: 08-12-2023 End: 18-44-8350Wiymrjxiu beverage intakeLifetime non-drinker (finding)[facility]OM[facility] HealthcareStart: 08-12-2023 End: 21-35-0352Gxqcjsf of Social functionNOMS HealthcareStart: 08-12-2023 End: 76-78-4413Fbnjqzomjsa, Afraid, Rape, and Kick questionnaire [HARK]NOMS HealthcareWithin the last year, have you been afraid of your partner or ex-partner?NoNOMS HealthcareAre you now , , , , never or living with a partner?MarriedNOMS HealthcareHow often to you have a drink containing alcohol?NeverNOMS HealthcareStart: 08-47-4025Ype many standard drinks containing alcohol do you have on a typical day?Patient does not drinkNOMS HealthcareHow hard is it for you to pay for the very basics like food, housing, medical care, and heatingNot very hardNOMS HealthcareDo you feel stress - tense, restless, nervous, or anxious, or unable to sleep at night because yourmind is troubled all the time - these days [OSQ]Very muchNOMS Healthcare(I/We) worried whether (my/our) food would run out before (I/we) got money to buy more.Never trueNOTX HealthcareStart: 06-60-9062Iej assigned at birthNot on fileHannibal Regional HospitalTobacco smoking status NHISUnknown if ever smoked [facility] Work Phone: SexFemale (finding)[facility] NEGATED: Highlighted rowStart: NINFHistory of tobacco usePassive smokerHannibal Regional Hospital Functional Status AyioXhwnvelsrrAdfnlmGkslnorv71-02-6965Xltodwy Health Questionnaire 2 item (PHQ- 2) [Reported]H[facility]ibal Regional HospitalIczobvterh76-10-3369Afbuasw Health Questionnaire 2 item (PHQ- 2) [Reported][facility] Clinical Notes 11-10-2021 to 05-20-2025 Note Date & HljdCyciMqxruelb20-56-2812 History of Present illness Narrative* Dave Vee, DPM - 05/20/2025 11:20 AM EDT Patient: Kevon Cartagena Beth : 1950 PCP: [...] rubbing against the big toe and slight overlappingof toes that causes painful ambulation has tried [...] and SOB -who ordered lab work, EKG, SOLEDADand Will for her - labs/results reviewed and d/w [...] 0 min Stress: Stress Concern Present (08/12/2023) [employer] [place] [employer] - Occupational Stress Questionnaire Feeling of Stress : Very much Social Connections: Moderately Integrated (08/12/2023) Social Connection and Isolation Panel [NHANES] Frequency of Communication with Friends and Family: More than three times a week Frequency of Social Gatherings with Friends and Family: More than three times a week Attends Mu-Ism Services: 1 to 4 times per year [...] as surgical intervention may be warranted Dave Vee DPM documented in this encounterHannibal Regional HospitalXxzougwyeu22-54-8259 Evaluation note* Diagnosis Onset Date Resolution Status Admit Date Bursitis of right wrist acuteAugust 2024 9:28am [facility] Work Phone: 1(187) 770-674208-30-2025 Evaluation note* Diagnosis Onset Date Resolution Status Admit Date Bursitis of right wrist deletedAugust 2024 9:28am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 acuteSeptember 2024 9:46amDepression, major, recurrent, mildacuteSeptember 2024 9:46amHypertensionacuteSeptember 2024 9:46amMixed hyperlipidemiaacuteSeptember 2024 9:46am [facility] Work Phone: 1(570) 314-673006-26-2025 History of Present illness Narrative* Dave Vee, DPM - 03/11/2025 11:30 AM EDT Patient: Kevon [...] 0 min Stress: Stress Concern Present (08/12/2023) [place] [place] [employer] - Occupational Stress Questionnaire Feeling of Stress : Very much Social Connections: Moderately Integrated (08/12/2023) Social Connection and Isolation Panel [NHANES] Frequency of Communication with Friends and Family: More than three times a week Frequency of Social Gatherings with Friends and Family: More than three times a week Attends Mu-Ism Services: 1 to 4 times per year [...] of feet while resting or NWB. Dave Vee DPM documented in this encounterHannibal Regional HospitalMduyvobqba61-36-6093 History of Present illness Narrative* Evelyn Tariq NP - 02/24/2025 10:00 AM [...] memory. Mild intermittent asthma with status asthmaticus ([facility]) patient reports using albuterol inhaler and albuterol tablet 2-3 times in a week. No hospitalization for asthma exacerbation. PFT c/w with mod obstructive disease; positive bronchodilator challenge Patient was asked to stop albuterol tablet last time; but continued to use it. Did not start her Pulmicort inhaler. Moderate persistent asthma Patient was seen last appt by Evelyn Tarqi for chest pain and SOB -who ordered [...] Problem List Items Addressed This Visit Hypertension ([facility]/HCC) Please check blood pressure daily and record DASH diet Limit caffeine Take medication as directed Contact office if chest pain, pressure, dizziness, shortness of breath, swelling legs Recommend slow position changes Current meds: losartan Relevant Orders Comprehensive metabolic panel Urinalysis with reflex microscopic (clean catch) Microalbumin / creatinine, urine ratio Hypothyroid ([facility]/HCC) Check labs , does not currently take any supplement Relevant Orders CBC and differential TSH T4, free B12 deficiency Check labs Relevant Orders CBC and differential Vitamin B12 Screening mammogram, encounter for Relevant Orders Bilateral screening mammogram 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 ([facility]/HCC) - Primary Does not follow with neurology Is taking remeron and risperidone Spouse feels things are going well Relevant Orders CBC and differential Vitamin B12 Hyperlipidemia ([facility]/HCC) On statin therapy Check labs yearly and [...] things are going well documented in this [facility]06-11-2025 Instructions* Patient Instructions* Evelyn Tariq NP - 02/24/2025 10:00 AM EDT Mammogram I will fax over to [facility]: they should call you for this [phone] Labs: fasting documented in this [facility]04-21-2025 Telephone encounter Note* Telephone Encounter - Valencia Herbert - 01/04/2025 11:48 AM EDT Mirtazapine 7.5 mg once at night. I didn't see this one listed. PAUL [facility] HospitalWtzecefwht84-14-9833 Miscellaneous Notes* Telephone Encounter - Valencia Herbert - 01/04/2025 11:48 AM EDT Mirtazapine 7.5 mg once at night. I didn't see this one listed. PAUL documented in this [facility]04-17-2025 History of Present illness Narrative* Dave Vee DPM - 12/31/2024 11:30 AM EDT Patient: Kevonmary Campos : 1950 PCP: Qi Andrade MD [...] 0 min Stress: Stress Concern Present (08/12/2023) [employer] [place] [employer] - Occupational Stress Questionnaire Feeling of Stress : Very much Social Connections: Moderately Integrated (08/12/2023) Social Connection and Isolation Panel [NHANES] Frequency of Communication with Friends and Family: More than three times a week Frequency of Social Gatherings with Friends and Family: More than three times a week Attends Mu-Ism Services: 1 to 4 times per year [...] edema. Discussed condition in detail. Recommendation for ejcm-ufw-ckbrmfl compression stockings at this time and may consider prescription stockings in the future. Dave Vee DPM documented in this encounterHannibal Regional HospitalNaaczcdevl22-55-3543 History of Present illness Narrative* Dominique Urbano NP - 10/12/2024 10:32 AM ESTAssociated Problem(s): COVID-19 Was seen in ED on 10/02 for COVID and ear infection. Was tx with Augmentin for otitis media and tylenol for fever/pain. Reports mild cough intermittently still persists. States most symptoms have since subsided. No complaints or concerns at this time. Denies shortness of breath/chest pain/ear pain/dizziness/N/V/D. * Dominique Urbano NP - 10/12/2024 10:00 AM [...] of breath/chest pain/ear pain/dizziness/N/V/D. documented in this encounterHannibal Regional HospitalOizgawkltt10-56-3256 Instructions* Patient Instructions* Dominique Urbano NP - 10/12/2024 10:00 AM [...] THE NEAREST EMERGENCY DEPARTMENT. documented in this encounterHannibal Regional HospitalEqhzedmmfx78-86-2839 NotePROCEDURE: [employer] land [employer] HDXT 1.5 Sagittal T1, T2, STIR [...] signed by Michael Cristina on 11/10/2021 1522[facility] [place] [facility]istEvaluation noteNo assessment information availableVeterans Health Administration Work Phone: Evaluation note* Diagnosis Primary hypertension [...] Unspecified essential hypertension documented in this encounter [facility] HealthcareEvaluation [facility]* Diagnosis Mild intermittent asthma [...] status asthmaticus (CMS/HCC) documented in this encounter [facility] HealthcareEvaluation note* Diagnosis Mild intermittent asthma [...] Status Admit Date Bursitis of right wrist acuteAugust 2024 9:28am [facility] Work Phone: Evaluation note* Diagnosis Mild intermittent [...] for referral (narrative)No reason for referral information availableFirelands Regional Medical Center [facility] Work Phone: Summary Purpose Family History No Family History Records FoundNo Family History Records FoundNo Family History Records FoundNo Family History Records FoundNo Family History Records FoundNo Family History Records Found Advance Directives Advance Directive Response Recorded Date/ Time Advance Directives No August 9:55am Advance Directive Response Recorded Date/ Time Advance Directives No May 11, 2025 4:19pm Advance Directive Response Recorded Date/ Time Advance Directives No May 5:12pm Chief Complaint and Reason for Visit Chief Complaint Admit Date right wrist pain, no injury May 15, 2025 9:28am M25.531 May 15, 2025 10 :08am Reason for Visit Admit Date Bursitis of right wrist May 15 9:28am Chief Complaint G31.84 Chief Complaint Admit Date right wrist pain, no injury May 15, 2025 9:28am Chief Complaint Admit Date right wrist pain, no injury May 15, 2025 9:28am M25.531 May 15, 2025 10 :08am 3M May 31, 2025 9:46am Reason for Visit Admit Date Bursitis of right wrist May 15 9:28am 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 May 31, 2025 9:46am Depression, major, recurrent, mild Septe [facility] 2024 9:46am Hypertension May 31, 2025 9:46am Mixed hyperlipidemia May 31 9:46am Chief Complaint Admit Date right wrist pain, no injury May 15, 2025 9:28am M25.531 May 15, 2025 10 :08am 3M May 31, 2025 9:46am dog bite on L hand June 29, 2025 1 1:54am Additional Source Comments INFORMATION SOURCE (unrecogn ized section and content) DATE CREATED AUTHOR 11/11/2021 [facility] DATE CREATED AUTHOR AUTHOR'S ORGANIZ ATION 12/21/2022 [facility] DATE CREATED AUTHOR AUTHOR'S ORGANIZ ATION 10/20/2023 [facility] DATE CREATED AUTHOR AUTHOR'S ORGANIZ ATION 08/11/2024 [facility] DATE CREATED AUTHOR AUTHOR'S ORGANIZ ATION 05/16/2025 [facility] DATE CREATED AUTHOR AUTHOR'S ORGANIZ ATION 05/22/2025 [facility] EPIC Care Teams (unrecognized sec tion and content) Team Status: Active Member Role Status Dates Shaikh Natalia MD Primary Care Provider Active Team Status: Inactive Member Role Status Dates Shaikh Natalia MD Primary Care Provider Active Twan Patel ProviderActiveTeam MemberRelationshipSpecialtyStart DateEnd Date Shaikh Fisher MD [address] [place] [address] PCP - [facility]09/16/23 Navneet Vanegas MD [address] [place] [address] PCP - GeneralFamily Medicine05/26/24 Dominique Urbano NP [address] [place] [address] Nurse PractitionerFamily Medicine05/26/24Team MemberRelationshipSpecialtyStart DateEnd Date Shaikh Fisher MD [address] [place] [address] PCP - [facility]09/16/23 Navneet Vanegas MD [address] [place] [address] PCP - Generalmily Medicine05/26/24 Dominique Urbano NP [address] [place] [address] Nurse [facility]er[facility] Medicine05/26/24Team MemberRelationshipSpecialtyStart DateEnd Date Shaikh Fisher MD [address] [place] [address] PCP - [facility]09/16/23 Qi Andrade MD [address] [place] [address] PCP - [facility]Medical [facility] Medicine10/06/24 Dominique Urbano NP [address] [place] [address] Nurse PractitionerMedical [facility] Medicine05/26/24Team MemberRelationshipSpecialtyStart DateEnd Date Shaikh Fisher MD [address] [place] [address] PCP - [facility]09/16/23 [place] [address] [place] [address] PCP - Generalmily Medicine10/06/24 Dominique Urbano NP [address] [place] [address] Nurse PractitionerFamily Medicine05/26/24Team MemberRelationshipSpecialtyStart DateEnd Date Shaikh Fisher MD [address] [place] [address] PCP - [facility]09/16/23 Qi Andrade MD [address] [place] [address] PCP - [facility]Medical [facility] Medicine10/06/24 Dominique Urbano NP [address] [place] [address] Nurse Pract[facility]erMedical [facility] Medicine05/26/24Team MemberRelationshipSpecialtyStart DateEnd Date Shaikh Fisher MD [address] [place] [address] PCP - [facility]09/16/23 Qi Andrade MD [address] [place] [address] PCP - GeneralFami Medicine10/06/24 Dominique Urbano NP [address] [place] [address] Nurse Pract[facility]erMedical [facility] Medicine05/26/24Team MemberRelationshipSpecialtyStart DateEnd Date Shaikh Fisher MD [address] [place] [address] PCP - [facility]09/16/23 Qi Andrade MD [address] [place] [address] PCP - GeneralFamily Medicine10/06/24 Dominique Urbano NP [address] [place] [address] Nurse PractitionerFamily Medicine05/26/24Team MemberRelationshipSpecialtyStart DateEnd Date Shaikh Fisher MD [address] [place] [address] PCP - [facility]09/16/23 Qi Andrade MD [facility] [place] [address] PCP - GeneralFamily Medicine10/06/24 Dominique Urbano NP [address] [place] [address] Nurse Practitionermily Medicine05/26/24Team MemberRelationshipSpecialtyStart DateEnd Date Shaikh Fisher MD [address] [place] [address] PCP - [facility]09/16/23 Qi Andrade MD [address] [place] [address] PCP - GeneralFamily Medicine10/06/24 Dominique Urbano NP [address] [place] [address] Nurse PractitionerMercyone Dyersville Medical Centerly Medicine05/26/24Team MemberRelationshipSpecialtyStart DateEnd Date Shaikh Fisher MD [address] [place] [address] PCP - [facility]09/16/23 Navneet Vanegas MD [address] [place] [address] PCP - [facility]02/23/25 Dominique Urbano NP [address] [place] [address] Nurse Pract[facility]erMedical [facility] Medicine05/26/24 Evelyn Tariq NP [address] [place] [address] Nurse Pract[facility]02/23/25Team MemberRelationshipSpecialtyStart DateEnd Date Shaikh Fisher MD [address] [place] [address] PCP - [facility]09/16/23 Navneet Vanegas MD [address] [place] [address] PCP - GeneralS[facility]02/23/25 Dominique Urbano NP [address] [place] [address] Nurse Pract[facility]Medical [facility] Medicine05/26/24 Evelyn Tariq NP [address] [place] [address] Nurse [facility]02/23/25Te MemberRelationshipSpecialtyStart DateEnd Date Shaikh Fisher MD [address] [place] [address] PCP - [facility]09/16/23 Navneet Vanegas MD [address] [place] [address] [facility]02/23/25 Dominique Urbano NP [address] [place] [address] Nurse PractitionerS[facility]05/26/24 Evelyn Tariq NP [address] [place] [address] Nurse [facility]02/23/25Te MemberRelationshipSpecialtyStart DateEnd Date Shaikh Fisher MD [address] [place] [address] PCP - [facility]09/16/23 Navneet Vanegas MD [address] [place] [address] [facility]02/23/25 Dominique Urbano NP [address] [place] [address] Nurse PractitionerS[facility]05/26/24 Evelyn Tariq, AJIT [address] [place] [address] Nurse PractitionerSoutheast [facility]02/23/25Team MemberRelationshipSpecialtyStart DateEnd Date Shaikh Fisher MD [address] [place] [address] PCP - [facility]09/16/23 Navneet Vanegas MD [address] [place] [address] [facility]02/23/25 Dominique Urbano NP [address] [place] [address] Nurse PractitionerS[facility]05/26/24 Evelyn Tariq NP [address] [place] [address] Nurse PractitionerS[facility]02/23/25 Team Status: Inactive Member Role Status Dates Shaikh Natalia MD Primary Care Provider Active Start: May 15, 2025 End: May 15, 2025Amilcar Coyle ProviderActiveStart: May 15, 2025 End: May 15, 2025 Team Status: Active Member Role Status Dates Shaikh Natalia MD Primary Care Provider Active Start: May 15, 2025 Amilcar Coyle ProviderActiveStart: May 15, 2025 Team MemberRelationshipSpecialtyStart DateEnd Date Shaikh Fishre MD [address] [place] [address] PCP - [facility]09/16/23 Navneet Vanegas MD [address] [place] [address] PCP - General acute hospital Medicine02/23/25 Dominique Urbano NP [address] [place] [address] Nurse PractitionerS[facility]05/26/24 Evelyn Tariq NP [address] [place] [address] Nurse PractitionerS[facility]02/23/25Team MemberRelationshipSpecialtyStart DateEnd Date Shaikh Fisher MD [address] [place] [address] PCP - [facility]09/16/23 Navneet Vanegas MD [address] [place] [address] PCP - [facility]02/23/25 Dominique Urbaon NP [address] [place] [address] Nurse Pract[facility]erMedical [facility] Medicine05/26/24 Evelyn Tariq NP [address] [place] [address] Nurse PractitionerS[facility]02/23/25 Team Status: Active Member Role Status Dates Evelyn Tariq NP-C Primary Care Provider Active Team Status: Inactive Member Role Status Dates Evelyn Tariq NP-C Primary Care Provider Active Start: May 31, 2025 End: May 31, 2025Damon Serna ProviderActiveStart: May 31, 2025 End: May 31, 2025 Team Status: Inactive Member Role Status Dates Evelyn CASSIUS Wong Primary Care Provider Active Start: June 29, 2025 End: June 29Amilcar Vincent ProviderActiveStart: June 29, 2025 End: June 29, 2025Team MemberRelationshipSpecialtyStart DateEnd Date Shaikh Fisher MD PCP - GeneralInternal Ezfhvahp38/15/234 Shaikh Fisher MD [address] [place] [address] PCP - [facility]09/16/23 Shaikh Fisher MD [address] [place] [address] [facility] Navneet Vanegas MD [address] [place] [address] PCP - Generalmily Medicine Qi Andrade MD [address] [place] [address] PCP - General acute hospital Medicine/06/10 Navneet Vanegas MD [address] [place] [address] PCP - GeneralFamily Medicine02/23/25 Dominique Urbano NP [address] [place] [address] Nurse PractitionerFajewish healthcare center Medicine05/26/24 Evelyn Tariq NP [address] [place] [address] Nurse PractitionerS[facility]02/23/25 Goals (unrecognized section and content) Goals may be documented in a n alternate sectionGoals may be documented in an alternate sectionGoals may be documented in an alternate sectionGoals may be documented in an alternate sectionGoals may be documented in an alternate section Reason for Visit (unrecogniz ed section and content) ReasonOnset DateCommentsMed [id number] Follow-up ReasonCommentsMed RefillReasonCommentsToenail CareReasonOnset DateCommentsMed Ldlzjk7501/04/2025ReasonCommentsToenail CareNon dm nail care FOR RECORDS PERTAINING TO [...] BE BASED ON THE PRIMARY CLINICAL RECORDS. [employer] [facility]. provides no warranty or guarantee of the accuracy or completeness of information in this document.
[2025-07-28 13:03] LABS: Alanine Aminotransferase 16 U/L (14-59); Albumin Globulin Ratio 1.0; Albumin Level 3.6 g/dL (3.4-5.0); Alkaline Phosphatase 100 U/L (46-116); Anion Gap 8.7; Aspartate Amino Transferase 13 U/L (15-37); Blood Urea Nitrogen 13.0 mg/dL (7.0-18.0); Calcium 9.4 mg/dL (8.5-10.1); Carbon Dioxide 30.5 mmol/L (21.0-32.0); Chloride 107 mmol/L (98-107); Estimated GFR (African America >60 (>=60 mL/min/1.73m^2); Estimated GFR (Non-African Ame 50 (>=60 mL/min/1.73m^2); Globulin 3.6 g/dL; Glucose 90 mg/dL (74-106); Potassium 4.2 mmol/L (3.5-5.1); Sodium 142 mmol/L (136-145); Total Protein 7.2 g/dL (6.4-8.2)
[2025-07-28 13:51] LABS: Hematocrit 35.9 % (36.0-48.0); Hemoglobin 11.8 g/dL (12.0-16.0); Immature Granulocytes Abs Auto 0.02 10^3/uL (0.00-0.03); Immature Granulocytes Pct Auto 0.4 % (0.0-0.5); Lymphocytes Absolute Auto 1.6 10^3/uL (1.2-3.8); Mean Corpuscular HGB Conc 32.9 g/dL (29.9-35.2); Mean Corpuscular Hemoglobin 32.0 pg (26.7-34.0); Mean Corpuscular Volume 97.3 fL (81.0-99.0); Platelet Count 262 10^3/uL (150-450); Red Blood Count 3.69 10^6/uL (4.20-5.40); White Blood Count 5.3 10^3/uL (4.0-11.0)
== END 2025-07-28 12:21 | disposition home or self-care (01) ==
LOC: LAB 12:22
PROVIDERS: PCP Nurse Practitioner; Visit Provider Nurse Practitioner
DX: R35.89 Other polyuria (principal); R39.9 Unspecified symptoms and signs involving the genitourinary system
CPT/HCPCS: 36415; 80053; 85025